=== PATIENT | female | born 1955 | race Caucasian/White ===

== ENCOUNTER 2019-09-25 17:50 | Emergency (ER) | payer BC, SELFPAY ==
[2019-09-25 17:51] VITALS: BP 135/84; PULSE 113; RESP 18; TEMP 37.1; O2SAT 94; BMI 34.7
--- NOTE | 2019-09-25 18:05 | ED.VIS.GEN ---
History of Present Illness Chief Complaint: Abd Pain Informant: Patient, Family Onset: Today Narrative: She presents the emergency department with nausea and vomiting. Patient states that she woke this morning feeling nauseated. She has had too much to eat but a few crackers and sips. She states that her stomach feels like it is acidic. She reports vomiting in triage. She had a large loose bowel movement this morning but did not classify it as diarrhea. No fevers. No rashes. No trips or recent antibiotics. Patient states that last night she had prime rib mashed potatoes and carrots. Her significant other had the same and is not feeling ill. She denies any prior abdominal surgeries. Past Medical History - Allergies and Home Meds Allergies/Adverse Reactions: Allergies ciprofloxacin [From Cipro] Allergy (Verified 12/28/13 11:51) Other ciprofloxacin HCl [From Cipro] Allergy (Verified 12/28/13 11:51) Other metronidazole Allergy (Verified 12/28/13 11:51) Other Penicillins [PCN] Allergy (Verified 12/28/13 11:51) Other Sulfa (Sulfonamide Antibiotics) Allergy (Verified 09/25/19 17:53) Rash Primary Care Physician: Rian Julian MD [Primary Care Provider] - Smoking Status: Never smoker Review of Systems General: Denies: Chills, Fever, Sweats Eyes: Denies: Visual changes - bilaterally, Diplopia ENT: Denies: Rhinorrhea, Sore throat Cardiovascular: Denies: Chest pain, Palpitations Respiratory: Denies: Dyspnea, Cough, Dyspnea on exertion Gastrointestinal: Reports: Abdominal pain, Nausea, Vomiting. Denies: Diarrhea, Melena, Hematochezia Genitourinary: Denies: Dysuria, Hematuria, Frequency Musculoskeletal: Denies: Back pain, Extremity Pain Skin: Denies: Rash, Wounds Neurological: Denies: Headache, Weakness, Numbness Physical Exam Vital Signs/Narrative: Vital Signs Temp Pulse Resp BP Pulse Ox 09/25/19 17:51 98.8 F 113 H 18 135/84 H 94 General: Well nourished, Well developed, No Acute Distress Head: Normocephalic, Atraumatic Eyes: Perrl, EOMI ENT: Moist mucous membranes, No rhinorrhea Neck: Supple, Nontender Cardiovascular: Regular rate, Regular rhythm, No murmurs Respiratory: No distress, CTA bilaterally, Chest nontender Abdomen: Soft, Nondistended, Normal bowel sounds, Tender - Diffusely mildly tender to palpation. Negative for: Guarding, Rebound tenderness Back: Nontender, Normal Inspection Extremities: Nontender, No edema Skin: Normal color, No rash Neurological: Alert, Oriented x3, Cranial nerves II-XII grossly intact, Normal Strength, Normal Sensation Psychological: Normal affect, Normal Mood Diagnostic/Tx/Re-eval - Medical Decision Making Basic labs were obtained and the patient received IV fluids and Zofran. No further vomiting. Patient received a GI cocktail. The labs showed a slight elevation in her transaminases and alk phos. She tells me that she has a history of this and her doctor keeps an eye on it. CT the abdomen pelvis was obtained please see the radiologist read for finite details. These results were conveyed to the patient I recommend that her doctor evaluate them with her and possibly refer to hepatology. Tonight I will write for Zofran and would encourage her to hydrate. Should she develop I would recommend Imodium. Return if worsening or concerns ED Disposition - Plan for ED Patient: Disposition: Home or Assisted Living Instructions: GASTROENTERITIS, Viral (6y-Adult) Prescriptions: Ondansetron [Zofran Odt] 4 mg PO Q6H PRN PRN #20 tab PRN Reason: Nausea Prescription Printed Referrals: Rian Julian MD [Primary Care Provider] - 3-5 Days if not improving
[2019-09-25] MEDS: 0.9% Normal Saline 1,000 ML 1000 ML IV (18:21)
[2019-09-25] MEDS: Ondansetron 4 MG/2 ML Vial IV (18:22)
[2019-09-25 18:37] LABS: Absolute Lymphocyte Count 0.54 X10^3/uL (0.83-4.51); Basophil# 0.01 X10^3/uL; Basophil% 0.1 % (0-1); Eosinophil# 0.01 X10^3/uL; Eosinophils% 0.1 % (0-5); Hematocrit 45.7 % (37-47); Hemoglobin 15.2 g/dL (12.0-15.0); Lymphocyte # 0.54 X10^3/ul (4.0); Lymphocyte % 6.2 % (19-41); Mean Corp Hgb Conc 33.3 g/dL (32-36); Mean Corpuscular Hgb 30.6 pg (27.0-32.0); Mean Platelet Vol. 10.6 fl (6.2-12.0); Monocyte# 0.16 X10^3/uL; Monocyte% 1.8 % (0-10); NRBC Flagged by Analyzer 0 % (0-5); Neutrophil # 8.01 X10^3/uL (2.7-7.7); Neutrophil % 91.2 % (47-70); POSITIVE COUNT YES; POSITIVE DIFFERENTIAL YES; Platelet Count 95 K/mm3 (150-450); RBC Distribution Width CV 13.4 % (11.6-14.6); RBC Distribution Width SD 45.6 fl (35.1-43.9); Red Blood Count 4.97 M/mm3 (4.2-5.4); White Blood Count 8.8 K/mm3 (4.4-11.0)
[2019-09-25 18:44] LABS: Differential Indicated SCAN CRITERIA MET
[2019-09-25 18:46] LABS: AST(SGOT) 122 U/L (15-37); Alanine Aminotransfer ALT/SGPT 98 U/L (13-56); Alkaline Phosphatase 120 U/L (45-117); Anion Gap 9 (5-15); BUN 17 mg/dL (7-18); BUN/Creat Ratio 19.2 RATIO (10-20); Calcium,Total 8.5 mg/dL (8.5-10.1); Chloride 104 mmol/L (98-107); Creatinine, Serum 0.88 mg/dL (0.55-1.02); EST Glomerular Filtration Rate 68 mL/min (>60); Est Glom Filt Rate - Afr Amer 83 mL/min (>60); Estimated Creatinine Clearance 46.39 ml/min; Glucose 204 mg/dL (74-106); Lipase 243 U/L (73-393); Potassium 3.7 mmol/L (3.5-5.1); Sodium Level 138 mmol/L (136-145)
[2019-09-25 19:01] LABS: Anisocytosis RARE; Platelet Estimate MOD DEC (ADEQ); Red Cell Morphology N CHROM NORMAL (NORM C&C)
--- NOTE | 2019-09-25 19:01 | CT_ITS ---
STUDY: CT ABDOMEN AND PELVIS WITH CONTRAST REASON FOR EXAM: Female, 64 years old. Burning and nausea RADIATION DOSAGE (If Supplied By Facility): CTDIvol = ( 15.00 ) mGy, DLP = ( 1098.34 ) mGycm TECHNIQUE: CT images were obtained from the dome of the diaphragm to the symphysis pubis without oral contrast. IV 100mL Isovue-370 was administered. Sagittal and coronal images were reconstructed. Individualized dose optimization techniques were used for this CT. COMPARISON: None. FINDINGS: The visualized lung bases are unremarkable. The visualized portions of the heart are within normal limits. The liver is severely fatty infiltrated, severely enlarged and mildly coarsened in texture without focal lesions. Portal and hepatic veins are patent. Spleen is mildly enlarged. Pancreas is normal. Normal bilateral adrenal glands. Normal right kidney. Normal left kidney. Normal visualized stomach. Normal small intestine. Normal colon. The appendix is visualized and appears normal. Normal abdominal aorta. Normal inferior vena cava. Normal retroperitoneum. Normal urinary bladder. Normal abdominal wall. Normal osseous structures. There is degenerative anterolisthesis of L5 on S1 without lysis. BMI is significantly elevated. CT/Abdomen/Pelvis W IV Cont ONLY IMPRESSION: 1. No acute abdominal findings. 2. Hepatic steatosis, hepatomegaly, possibly impending cirrhosis. Hepatology referral is advised. Electronically Signed: Yessica Mccormick, at 19:42 EST Tel , Service support ,
[2019-09-25] MEDS: Mag Hydrox/Al Hydrox/Simeth 30 ML UDC PO (20:11)
[2019-09-25 20:15] VITALS: BP 128/66; PULSE 83; RESP 16; O2SAT 95
[2019-09-25 20:28] VITALS: BP 128/66; PULSE 90; RESP 18; O2SAT 95
== END 2019-09-25 20:28 | disposition home or self-care (01) ==
PROVIDERS: Emergency Provider Emergency Medicine; Family Provider Family Medicine; PCP Family Medicine
DX: A08.4 Viral intestinal infection, unspecified (principal); K76.0 Fatty (change of) liver, not elsewhere classified; R16.0 Hepatomegaly, not elsewhere classified
CPT/HCPCS: 74177; 80053; 83690; 85025; 96361; 96374; 99284; J7030; Q9967; J2405

== ENCOUNTER → 2020-04-19 07:18 | Outpatient (CLI) | payer BC, SELFPAY ==
[2020-04-19 09:16] LABS: ALB/GLOB Ratio 0.9 RATIO (0.9-2.4); AST(SGOT) 87 U/L (15-37); Alanine Aminotransfer ALT/SGPT 78 U/L (13-56); Albumin, Serum 3.8 g/dL (3.2-5.0); Alkaline Phosphatase 121 U/L (45-117); Anion Gap 10 (5-15); BUN 18 mg/dL (7-18); BUN/Creat Ratio 24.7 RATIO (10-20); Calcium,Total 8.8 mg/dL (8.5-10.1); Chloride 102 mmol/L (98-107); Cholesterol 211 mg/dL (200); Creatinine, Serum 0.73 mg/dL (0.55-1.02); EST Glomerular Filtration Rate 85 mL/min (>60); Est Glom Filt Rate - Afr Amer 103 mL/min (>60); Globulin 4.3 g/dL (2.2-4.2); Glucose 236 mg/dL (74-106); High Density Lipoprotein 40 mg/dL; Protein, Total 8.1 g/dL (6.4-8.2); Sodium Level 138 mmol/L (136-145); Thyroid Stim Hormone (TSH) 2.39 uIU/mL (0.358-3.74); Triglycerides 191 mg/dL; Uric Acid 3.3 mg/dL (2.6-6.0); Very Low Density Lipoprotein 38 mg/dL (5-40)
[2020-04-19 11:14] LABS: Hemoglobin A1c 8.9 % (3.8-5.6)
== END ==
PROVIDERS: PCP Family Medicine; Referring Provider Family Medicine; Visit Provider Family Medicine
DX: E03.9 Hypothyroidism, unspecified (principal); E11.9 Type 2 diabetes mellitus without complications; M10.9 Gout, unspecified
CPT/HCPCS: 36415; 80053; 80061; 83036; 84443; 84550

== ENCOUNTER 2021-11-20 07:57 | Outpatient (CLI) | payer MEDICARE, BC, SELFPAY ==
--- NOTE | 2021-11-20 08:05 | MRI_ITS ---
STUDY: MRI BRAIN WITH AND WITHOUT CONTRAST (ATTENTION INTERNAL AUDITORY CANALS - I.A.C.''s) REASON FOR EXAM: Female, 66 years old. TINNITUS RT EAR, HEARING LOSS TECHNIQUE: Standardized multiplanar fat and water weighted pulse sequences were obtained. IV 16ml Dotarem was administered for the contrast portion of the examination. COMPARISON: MR May 20 2006 FINDINGS: Normal bilateral temporal bones. Normal bilateral internal auditory canals. There is no demonstrated intracanalicular or cisternal vestibular schwannoma (acoustic neuroma). There is no enhancement of the bilateral VIIth or VIIIth cranial nerves. Normal bilateral cochlea, vestibules and semicircular canals. Normal size of the ventricles and extra-axial spaces for the patient''s age. Normal white matter tracts of the supratentorial brain. Normal bilateral basal ganglia. Normal thalami. Normal flow voids within the major intracranial circulation suggesting patency by spin echo criteria. Normal venous enhancement. There is no enhancing intra-axial or extra-axial abnormality. There is no extra-axial fluid accumulation. Normal sella turcica, pituitary gland, infundibular stalk, optic chiasm and hypothalamus. Normal tectal plate and pineal gland. Normal midbrain, ariel and medulla. Normal cerebellum. Normal basal cisterns. MRI/Brain W/WO Contrast IMPRESSION: Unremarkable unenhanced and enhanced MRI of the bilateral internal auditory canals (I.A.C''s). Electronically Signed: Jessica Chatman MD at 15:08 EST ,
[2021-11-20 08:36] LABS: CREATININE FINGERSTICK < 0.6 mg/dL (0.55-1.02); EGFR FINGERSTICK > 60.0000 mL/min (>60)
== END 2021-11-20 23:59 | disposition short-term general hospital (02) ==
PROVIDERS: PCP Family Medicine; Referring Provider Otolaryngology; Visit Provider Otolaryngology
DX: H93.11 Tinnitus, right ear (principal); H90.3 Sensorineural hearing loss, bilateral
CPT/HCPCS: 70553; A9575

== ENCOUNTER 2023-01-18 10:35 | Inpatient (IN) | payer MEDICARE, BC, SELFPAY ==
[2023-01-18 10:36] VITALS: BP 116/68; PULSE 128; RESP 20; TEMP 36.1; O2SAT 98
--- NOTE | 2023-01-18 10:57 | EX.ED.DYSGE1 ---
HPI <DARLENE Friedman - Last Filed: 01/18/23 16:53> History of Present Illness Chief Complaint: Nausea/Vomiting Narrative Narrative: Patient presenting today after an episode of hematemesis that occurred this morning. She states that on Thursday she began to feel nauseous, weak, and shaky. She has felt that way since and today she attempted to walk to the bathroom and fell 3 times trying to get there because she felt so weak. When she got to the bathroom, she felt very nauseous and that is when she threw up a large amount of blood with clots. She has a history of gastric reflux and takes pantoprazole daily. She has not had an endoscopy in almost 20 years. She does not have a GI doctor. She states that in June she had a hemoglobin of 8.2 so her PCP placed her on iron supplementation and in November repeat hemoglobin was normal so she stopped her iron. She denies any melena, hematochezia, abdominal pain, fevers, chills, alcohol use, frequent NSAID use, tobacco use. [facility] <DARLENE Friedman - Last Filed: 01/18/23 16:53> [facility] Medical History (Updated 01/18/23 @ 17:23 by Aisha Butler) Diabetes Migraines Home Medications diclofenac potassium 50 mg tablet (Cataflam) 50 mg PO PRN PRN Migraine Symptoms 12/28/13 [History Last Taken Unknown] levothyroxine 50 mcg tablet 50 mcg PO DAILY 12/28/13 [History Last Taken Unknown] nadolol 40 mg tablet 40 mg PO DAILY 12/28/13 [History Last Taken Unknown] omeprazole 20 mg capsule,delayed release 20 mg PO DAILY 12/28/13 [History Last Taken Unknown] rizatriptan 10 mg tablet 10 mg PO DAILY 12/28/13 [History Last Taken Unknown] topiramate 100 mg tablet 100 mg PO DAILY 12/28/13 [History Last Taken Unknown] topiramate 50 mg tablet 50 mg PO DAILY 12/28/13 [History Last Taken Unknown] trazodone 50 mg tablet 50 mg PO QHS 12/28/13 [History Last Taken Unknown] ondansetron 4 mg disintegrating tablet 4 mg PO Q6H PRN PRN Nausea #20 tabs 09/25/19 [Rx Last Taken Unknown] Allergy/AdvReac Type Severity Reaction Status Date / Time ciprofloxacin [From Cipro] Allergy Other Verified 01/18/23 10:39 ciprofloxacin HCl Allergy Other Verified 01/18/23 10:39 [From Cipro] metronidazole Allergy Other Verified 01/18/23 10:39 Penicillins [PCN] Allergy Other Verified 01/18/23 10:39 Sulfa (Sulfonamide Allergy Rash Verified 01/18/23 10:39 Antibiotics) [id number] Reductase AdvReac Other Verified 01/18/23 10:39 Inhibitor Family History (Updated 01/18/23 @ 17:23 by Aisha Butler) Grandfather Diabetes Grandmother Diabetes Father Heart problem Mother CVA (cerebral vascular accident) Surgical History (Updated 01/18/23 @ 17:23 by Aisha Butler) History of Hx of tonsillectomy Status post left foot surgery Social History Smoking Status: Former smoker ROS <DARLENE Friedman - Last Filed: 01/18/23 16:53> ROS ED Constitutional Constitutional ED: Denies chills, fever(s) or sweats Eyes Eyes: Denies blurry vision or diplopia Cardiovascular Cardiovascular: Denies chest pain or palpitations Respiratory/Chest Respiratory/Chest: Denies cough or dyspnea Gastrointestinal Gastrointestinal: Reports hematemesis, nausea and vomiting; Denies abdominal pain, constipation or diarrhea Genitourinary Genitourinary ED: Denies dysuria, hematuria or urinary urgency Musculoskeletal Musculoskeletal: Denies arthralgias, back pain or myalgias Integumentary Denies abscess, Abrasions or rash Neurologic Neurologic: Reports weakness; Denies dizziness Psychiatric Psychiatric: Denies anxiety, depression, suicidal ideation or suicidal thoughts EXAM <DARLENE Friedman - Last Filed: 01/18/23 16:53> Physical Exam Const Vital Signs: 01/18/23 10:36 01/18/23 11:55 01/18/23 13:26 Temperature 97 F L Temperature Source Temporal Pulse Rate 128 H 106 H Pulse Rate [Lying] 102 H Pulse Rate [Sitting (for 1 minute prior to obtaining)] 113 H Pulse Rate [Standing (for 1 minute prior to obtaining)] 131 H Respiratory Rate 20 H 18 Blood Pressure 116/68 137/70 H Blood Pressure [Lying] 115/72 Blood Pressure [Sitting (for 1 minute prior to obtaining)] 117/74 Blood Pressure [Standing (for 1 minute prior to obtaining)] 111/67 Blood Pressure Mean 84 92 Blood Pressure Mean [Lying] 86 Blood Pressure Mean [Sitting (for 1 minute prior to obtaining)] 88 Blood Pressure Mean [Standing (for 1 minute prior to obtaining)] 81 Pulse Ox 98 99 Oxygen Delivery Method Room Air Room Air Positive well nourished, well developed and no apparent distress General Appearance ED: well developed HEENT Reports normocephalic and head/scalp atraumatic Mouth ED: Yes moist mucous membranes normal Eyes PERRL and EOMs intact bilaterally Neck full ROM and supple Chest Wall inspection of chest normal Resp normal respiratory effort and clear to auscultation bilaterally Cardio regular rate and regular rhythm GI soft to palpation, non-tender, non-distended and no masses Back/Spine normal ROM and normal to inspection Extremity normal to inspection and full ROM Neuro oriented x3, CN's II-XII intact bilaterally, moves all extremities, no focal motor deficits and no sensory deficits noted Sensorium / Orientation: awake and alert Psych mental status grossly normal and thought process normal Skin no rashes or lesions noted and no wounds <Dr. Asad Macario DO - Last Filed: 01/18/23 18:22> Physical Exam Const Vital Signs: 01/18/23 10:36 01/18/23 11:55 01/18/23 13:26 Temperature 97 F L Temperature Source Temporal Pulse Rate 128 H 106 H Pulse Rate [Lying] 102 H Pulse Rate [Sitting (for 1 minute prior to obtaining)] 113 H Pulse Rate [Standing (for 1 minute prior to obtaining)] 131 H Respiratory Rate 20 H 18 Blood Pressure 116/68 137/70 H Blood Pressure [Lying] 115/72 Blood Pressure [Sitting (for 1 minute prior to obtaining)] 117/74 Blood Pressure [Standing (for 1 minute prior to obtaining)] 111/67 Blood Pressure Mean 84 92 Blood Pressure Mean [Lying] 86 Blood Pressure Mean [Sitting (for 1 minute prior to obtaining)] 88 Blood Pressure Mean [Standing (for 1 minute prior to obtaining)] 81 Pulse Ox 98 99 Oxygen Delivery Method Room Air Room Air MDM <DARLENE Friedman - Last Filed: 01/18/23 16:53> [facility] MDM Narrative Medical decision making narrative: Patient presenting with weakness and an episode of emesis that occurred this morning. She denies any blood in her stool. This has never happened before. She has a history of GERD and takes pantoprazole daily. No alcohol, tobacco, or frequent NSAID use. She does not have a GI doctor. She did show me a picture of her vomit and it is consistent with coffee-ground emesis. she has been given protonix, IV fluids, Zofran. Obtain a leukocytosis, anemia, assess kidney function, rule out elevated liver enzymes, and to check a lipase to rule out pancreatitis. Patient does have leukocytosis, BUN 38, lipase WNL, H&H 9.[address] scan of the abdomen and pelvis obtained and shows enhancing nodule in the proximal duodenum. Dr. Curtis has been spoken to and he states he will see the patient tomorrow as she will need an endoscopy. Hospitalist has been paged and patient will be admitted to the hospital in stable condition. She is comfortable with plan. Lab Data Attestation: I reviewed the patient's lab results. Lab results narrative: WBC 8-2, hemoglobin 9.9, hematocrit 30.6, platelet count 141, lipase WNL Labs: Laboratory Results - last 24 hr 01/18/23 01/18/23 01/18/23 11:15 11:15 11:15 WBC 18.2 H RBC 3.32 L Hgb 9.9 L Hct 30.6 L MCV 92.2 MCH 29.8 MCHC 32.4 RDW Std Deviation 49.5 H RDW Coeff of Pete 15.0 H Plt Count 141 L MPV 10.1 Immature Gran % (Auto) 1.200 H Neut % (Auto) 73.9 H Lymph % (Auto) 17.5 L Sac % (Auto) 6.0 Eos % (Auto) 1.0 Baso % (Auto) 0.4 Absolute Neuts (auto) 13.4 H Absolute Lymphs (auto) 3.18 Nucleated RBC % 0.3 Sodium 138 Potassium 4.7 Chloride 107 Carbon Dioxide 20.0 L Anion Gap 11 BUN 38 H Creatinine 0.86 Est GFR (MDRD) Af Amer 85 Est GFR (MDRD) Non-Af 70 BUN/Creatinine Ratio 44.2 H Glucose 255 H Calcium 9.3 Total Bilirubin 0.50 AST 28 ALT 31 Alkaline Phosphatase 83 Total Protein 7.4 Albumin 3.8 Globulin 3.6 Albumin/Globulin Ratio 1.1 Lipase Blood Type O POSITIVE Antibody Screen NEGATIVE 01/18/23 11:15 WBC RBC Hgb Hct MCV MCH MCHC RDW Std Deviation RDW Coeff of Pete Plt Count MPV Immature Gran % (Auto) Neut % (Auto) Lymph % (Auto) Sac % (Auto) Eos % (Auto) Baso % (Auto) Absolute Neuts (auto) Absolute Lymphs (auto) Nucleated RBC % Sodium Potassium Chloride Carbon Dioxide Anion Gap BUN Creatinine Est GFR (MDRD) Af Amer Est GFR (MDRD) Non-Af BUN/Creatinine Ratio Glucose Calcium Total Bilirubin AST ALT Alkaline Phosphatase Total Protein Albumin Globulin Albumin/Globulin Ratio Lipase 211 Blood Type Antibody Screen Radiography Diagnostic Testing: Clinical Impression(s) from Imaging Studies Abdomen/Pelvis CT 01/18/23 11:32 IMPRESSION: (NOT LISTED IN ORDER OF SIGNIFICANCE) In the wall of the proximal duodenum, there is an enhancing nodule. This is 12 x 14mm. It is on the lateral wall. Se 2 IM: 40. Se601 IM: 46. This can be a mass or artifact from peristaltic contractions. However, given the patients history, recommend direct visualization with upper endoscopy. This area was underdistended on the prior study so a direct comparison cannot be obtained. There is hepatomegaly with diffuse hepatic enlargement. There is a diffuse contour abnormality of the liver consistent with cirrhotic changes. Other findings as above. Electronically Signed: Nando Núñez MD at 14:38 EDT Reading Location ID and State: [facility] / [place] , Service support , CT also reviewed and interpreted by attending ED physician. <Dr. Asad Macario, DO - Last Filed: 01/18/23 18:22> [facility] Narrative Medical decision making narrative: Patient presenting with weakness and an episode of emesis that occurred this morning. She denies any blood in her stool. This has never happened before. She has a history of GERD and takes pantoprazole daily. No alcohol, tobacco, or frequent NSAID use. She does not have a GI doctor. She did show me a picture of her vomit and it is consistent with coffee-ground emesis. she has been given protonix, IV fluids, Zofran. Obtain a leukocytosis, anemia, assess kidney function, rule out elevated liver enzymes, and to check a lipase to rule out pancreatitis. Patient does have leukocytosis, BUN 38, lipase WNL, H&H 9.[address] scan of the abdomen and pelvis obtained and shows enhancing nodule in the proximal duodenum. Dr. Curtis has been spoken to and he states he will see the patient tomorrow as she will need an endoscopy. Hospitalist has been paged and patient will be admitted to the hospital in stable condition. She is comfortable with plan. This patient was seen with a PA/COMMERCIAL DECORATOR Individually assessed they patient including history and physical. I have reviewed everything on the chart that is available and agree with the documentation provided by the PA/COMMERCIAL DECORATOR including discussion about the assessment, treatment plan, discussion, and return precautions. Patient presenting with hematemesis. She has a history of GERD and does not believe she has history of ulcers. Been sick since Thursday after eating some spaghetti with red sauce. She had 1 episode of hematemesis today. Patient is able to pride pictures. Blood work shows a leukocytosis of 18,000. Hemoglobin is 9.9 with a previous hemoglobin of greater than 15. She does have low platelets at 141. Renal function and electrolytes within normal limits. BUN is elevated with normal renal function suggesting GI bleed. Liver function and lipase are normal. She was typed and screened. Started on Protonix drip. Discussed with Dr. Curtis who is amenable to seeing her in the hospital. CT of the abdomen pelvis was obtained and shows an enhancing nodule in the wall of the proximal duodenum 12 x 14mm. Patient admitted in stable condition. Impression: 1. acute blood loss anemia 2. Leukocytosis 3. Upper GI bleed 4. Thrombocytopenia Lab Data Labs: Laboratory Results - last 24 hr 01/18/23 01/18/23 01/18/23 11:15 11:15 11:15 WBC 18.2 H RBC 3.32 L Hgb 9.9 L Hct 30.6 L MCV 92.2 MCH 29.8 MCHC 32.4 RDW Std Deviation 49.5 H RDW Coeff of Pete 15.0 H Plt Count 141 L MPV 10.1 Immature Gran % (Auto) 1.200 H Neut % (Auto) 73.9 H Lymph % (Auto) 17.5 L Sac % (Auto) 6.0 Eos % (Auto) 1.0 Baso % (Auto) 0.4 Absolute Neuts (auto) 13.4 H Absolute Lymphs (auto) 3.18 Nucleated RBC % 0.3 Sodium 138 Potassium 4.7 Chloride 107 Carbon Dioxide 20.0 L Anion Gap 11 BUN 38 H Creatinine 0.86 Est GFR (MDRD) Af Amer 85 Est GFR (MDRD) Non-Af 70 BUN/Creatinine Ratio 44.2 H Glucose 255 H Calcium 9.3 Total Bilirubin 0.50 AST 28 ALT 31 Alkaline Phosphatase 83 Total Protein 7.4 Albumin 3.8 Globulin 3.6 Albumin/Globulin Ratio 1.1 Lipase Blood Type O POSITIVE Antibody Screen NEGATIVE 01/18/23 11:15 WBC RBC Hgb Hct MCV MCH MCHC RDW Std Deviation RDW Coeff of Pete Plt Count MPV Immature Gran % (Auto) Neut % (Auto) Lymph % (Auto) Sac % (Auto) Eos % (Auto) Baso % (Auto) Absolute Neuts (auto) Absolute Lymphs (auto) Nucleated RBC % Sodium Potassium Chloride Carbon Dioxide Anion Gap BUN Creatinine Est GFR (MDRD) Af Amer Est GFR (MDRD) Non-Af BUN/Creatinine Ratio Glucose Calcium Total Bilirubin AST ALT Alkaline Phosphatase Total Protein Albumin Globulin Albumin/Globulin Ratio Lipase 211 Blood Type Antibody Screen Radiography Diagnostic Testing: Clinical Impression(s) from Imaging Studies Abdomen/Pelvis CT 01/18/23 11:32 IMPRESSION: (NOT LISTED IN ORDER OF SIGNIFICANCE) In the wall of the proximal duodenum, there is an enhancing nodule. This is 12 x 14mm. It is on the lateral wall. Se 2 IM: 40. Se601 IM: 46. This can be a mass or artifact from peristaltic contractions. However, given the patients history, recommend direct visualization with upper endoscopy. This area was underdistended on the prior study so a direct comparison cannot be obtained. There is hepatomegaly with diffuse hepatic enlargement. There is a diffuse contour abnormality of the liver consistent with cirrhotic changes. Other findings as above. Electronically Signed: Nando Núñez MD at 14:38 EDT , Discharge Plan Dx/Rx/DC Orders Clinical Impression: GI (gastrointestinal bleed) Disposition Disposition: Acute Care Hospital [facility] Discharge Date/Time: 01/18/23 16:43
[2023-01-18 11:25] LABS: Absolute Lymphocyte Count 3.18 X10^3/uL (0.83-4.51); Absolute Neutrophil Count 13.4 X10^3/uL (2.0-7.7); Basophil# 0.08 X10^3/uL; Basophil% 0.4 % (0-1); Eosinophil# 0.18 X10^3/uL; Hematocrit 30.6 % (37-47); Hemoglobin 9.9 g/dL (12.0-15.0); Lymphocyte # 3.18 X10^3/ul (0.83-4.51); Lymphocyte % 17.5 % (19-41); Mean Corp Hgb Conc 32.4 g/dL (32-36); Mean Corpuscular Hgb 29.8 pg (27.0-32.0); Mean Corpuscular Volume 92.2 fL (81-99); Mean Platelet Vol. 10.1 fl (6.2-12.0); Monocyte# 1.09 X10^3/uL; NRBC Flagged by Analyzer 0.3 % (0-5); Neutrophil % 73.9 % (47-70); Platelet Count 141 K/mm3 (150-450); RBC Distribution Width SD 49.5 fl (35.1-43.9); Red Blood Count 3.32 M/mm3 (4.2-5.4); White Blood Count 18.2 K/mm3 (4.4-11.0)
[2023-01-18] MEDS: 0.9% Normal Saline 1,000 ML 999 ML IV (11:25)
[2023-01-18] MEDS: Ondansetron 4 MG/2 ML Vial IV (11:25)
--- NOTE | 2023-01-18 11:32 | CT_ITS ---
STUDY: CT Abdomen And Pelvis W/ Contrast Injection 01/18/2023 2:31 PM REASON FOR EXAM: Female, 67 years old. vomiting. pt states it was black and had blood. abdominal pain Individualized dose optimization techniques were used for this CT. COMPARISON: 09.25.19. TECHNIQUE: CT Abdomen And Pelvis W/ Contrast Injection IV 100mL Isovue-370 FINDINGS: There are atherosclerotic calcifications of visualized coronary arteries. The visualized portions of the heart are within normal limits. There is hepatomegaly with diffuse hepatic enlargement. There is a diffuse contour abnormality of the liver consistent with cirrhotic changes. Normal gallbladder and extrahepatic biliary system. Normal spleen. Normal pancreas. Normal bilateral adrenal glands. There are hypodensities in the right kidney. These are consistent for cysts. No follow up required. No acute findings of the left kidney. Normal visualized stomach. Normal small intestine. Stool throughout the colon. The appendix is visualized and appears normal. In the wall of the proximal duodenum, there is an enhancing nodule. This is 12 x 14mm. It is on the lateral wall. Se 2 IM: 40. Se601 IM: 46. This can be a mass or artifact from peristaltic contractions. However, given the patients history, recommend direct visualization with upper endoscopy. There are calcifications of the abdominal aorta. This is consistent for atherosclerotic disease. There is NO abdominal aortic aneurysm. Vascular workup can be obtained based on clinical correlation. Normal inferior vena cava. Subcentimeter mesenteric lymph nodes. Normal urinary bladder. There is atrophy of the uterus. There is an umbilical hernia containing fat. There are diffuse degenerative changes of the visualized lumbar spine. There is a Grade 1 anterolisthesis of L5 on S1. There is bilateral neural foraminal stenosis at L4-5 and L5-S1. CT/Abdomen/Pelvis W IV Cont ONLY IMPRESSION: (NOT LISTED IN ORDER OF SIGNIFICANCE) In the wall of the proximal duodenum, there is an enhancing nodule. This is 12 x 14mm. It is on the lateral wall. Se 2 IM: 40. Se601 IM: 46. This can be a mass or artifact from peristaltic contractions. However, given the patients history, recommend direct visualization with upper endoscopy. This area was underdistended on the prior study so a direct comparison cannot be obtained. There is hepatomegaly with diffuse hepatic enlargement. There is a diffuse contour abnormality of the liver consistent with cirrhotic changes. Other findings as above. Electronically Signed: Nando Núñez MD at 14:38 EDT ,
[2023-01-18 11:41] LABS: ALB/GLOB Ratio 1.1 RATIO (0.9-2.4); AST(SGOT) 28 U/L (15-37); Alanine Aminotransfer ALT/SGPT 31 U/L (13-56); Albumin, Serum 3.8 g/dL (3.2-5.0); Alkaline Phosphatase 83 U/L (45-117); Anion Gap 11 (5-15); BUN 38 mg/dL (7-18); BUN/Creat Ratio 44.2 RATIO (10-20); Calcium,Total 9.3 mg/dL (8.5-10.1); Chloride 107 mmol/L (98-107); Creatinine, Serum 0.86 mg/dL (0.55-1.02); EST Glomerular Filtration Rate 70 mL/min (>60); Est Glom Filt Rate - Afr Amer 85 mL/min (>60); Globulin 3.6 g/dL (2.2-4.2); Glucose 255 mg/dL (74-106); Potassium 4.7 mmol/L (3.5-5.1); Protein, Total 7.4 g/dL (6.4-8.2); Sodium Level 138 mmol/L (136-145)
[2023-01-18 11:45] LABS: Lipase 211 U/L (73-393)
[2023-01-18 11:54] VITALS: BMI 33.9
[2023-01-18 11:55] VITALS: BP 111/67; BP 115/72; BP 117/74; PULSE 102; PULSE 113; PULSE 131
[2023-01-18 13:26] VITALS: BP 137/70; PULSE 106; RESP 18; O2SAT 99
[2023-01-18 15:37] VITALS: BP 108/81; PULSE 114; RESP 20; TEMP 36.3; O2SAT 98
[2023-01-18 17:03] VITALS: BMI 33.8
[2023-01-18 17:12] VITALS: BP 105/71; PULSE 109; RESP 16; TEMP 37.3; O2SAT 97
[2023-01-18 17:17] LABS: Hematocrit 26.6 % (37-47); Hemoglobin 8.5 g/dL (12.0-15.0)
--- NOTE | 2023-01-18 18:17 | HP.PCM.HOS_ITS ---
HPI - General General Date of Admission: 01/18/23 Date of Service: 01/18/23 Chief Complaint: Hematemesis HPI Narrative JAVON CAMPBELL, is a 67 F who presents to the emergency room at [facility] [place] after having an episode of hematemesis approximately 930 this morning, patient has had no more episodes today, she does not feel weak or fatigued, patient has never had a history of upper GI bleeds to her knowledge, she was diagnosed with anemia last fall and had a colonoscopy which did not show anything significant according to her, she was placed on iron therapy but taken off this therapy in November 2022, her doctor told her that she did not need the iron anymore that her hemoglobin was normal. We do not have a hemoglobin in this record recently, she is a [facility] patient. Patient states that she feels as if she has acid feeling in her stomach. She does take Protonix 40 mg daily on a continuous basis. She denies any frequent use of any nonsteroidals or aspirin. Labs performed in the emergency room showed the patient's white blood cell count to be elevated 18.2, hemoglobin was 9.9, platelet count was 141,000, patient's chemistry profile was remarkable for glucose of 255. CT of the abdomen and pelvis was remarkable for a 12 x 14 mm enhancing nodule on the wall of the proximal duodenum. Patient was admitted to PCU for upper GI bleed, she was placed on Protonix drip and she will get every 4 hour H&H's drawn, I have elected to keep her on her home medications at this time with the exception of the metformin, I do not think she needs fingerstick blood sugars at this time. I talked briefly with matteo pérezoenterologenriqueta about her care. [facility] Medical History (Updated 01/18/23 @ 17:23 by Aisha Butler) Diabetes Migraines Home Medications diclofenac potassium 50 mg tablet (Cataflam) 50 mg PO PRN PRN Migraine Symptoms 12/28/13 [History Last Taken Unknown] levothyroxine 50 mcg tablet 50 mcg PO DAILY 12/28/13 [History Last Taken Unknown] nadolol 40 mg tablet 40 mg PO DAILY 12/28/13 [History Last Taken Unknown] omeprazole 20 mg capsule,delayed release 20 mg PO DAILY 12/28/13 [History Last Taken Unknown] rizatriptan 10 mg tablet 10 mg PO DAILY 12/28/13 [History Last Taken Unknown] topiramate 100 mg tablet 100 mg PO DAILY 12/28/13 [History Last Taken Unknown] topiramate 50 mg tablet 50 mg PO DAILY 12/28/13 [History Last Taken Unknown] trazodone 50 mg tablet 50 mg PO QHS 12/28/13 [History Last Taken Unknown] ondansetron 4 mg disintegrating tablet 4 mg PO Q6H PRN PRN Nausea #20 tabs 09/25/19 [Rx Last Taken Unknown] Allergy/AdvReac Type Severity Reaction Status Date / Time ciprofloxacin [From Cipro] Allergy Other Verified 01/18/23 10:39 ciprofloxacin HCl Allergy Other Verified 01/18/23 10:39 [From Cipro] metronidazole Allergy Other Verified 01/18/23 10:39 Penicillins [PCN] Allergy Other Verified 01/18/23 10:39 Sulfa (Sulfonamide Allergy Rash Verified 01/18/23 10:39 Antibiotics) Tuqxcyj-TGW-SmI Reductase AdvReac Other Verified 01/18/23 10:39 Inhibitor Family History (Updated 01/18/23 @ 17:23 by Aisha uBtler) Grandfather Diabetes Grandmother Diabetes Father Heart problem Mother CVA (cerebral vascular accident) Surgical History (Updated 01/18/23 @ 17:23 by Aisha Butler) History of Hx of tonsillectomy Status post left foot surgery Social History Smoking Status: Former smoker ROS Constitutional Constitutional: Denies anorexia, change in weight, chills, fatigue, fever(s), malaise, night sweats or weakness Eyes Eyes: Denies blurry vision, change in vision, discharge from eye(s) or eye pain Cardiovascular Cardiovascular: Denies chest pain, claudication, dyspnea on exertion, edema, lightheadedness, orthopnea or palpitations Respiratory/Chest Respiratory/Chest: Denies cough, hemoptysis, shortness of breath at rest or shortness of breath with exertion Gastrointestinal Gastrointestinal: Reports hematemesis, nausea and vomiting; Denies abdominal pain, constipation, diarrhea, hematochezia or melena Genitourinary Genitourinary: Denies dysuria, hematuria, urinary frequency, urinary hesitancy, urinary incontinence or urinary urgency Musculoskeletal Musculoskeletal: Denies back pain, joint pain, joint stiffness, joint swelling, myalgias or neck pain Neurologic Neurologic: Denies abnormal gait, abnormal speech, confusion, disequilibrium, dizziness, focal weakness, headache(s), loss of vision, numbness, other visual disturbances, paresthesias, syncope or tingling Psychiatric Psychiatric: Denies anxiety, cognitive impairment, depression, irritability, mood swings or suicidal ideation Endocrine Endocrinology: Denies change in body appearance, cold intolerance, excessive sweating, heat intolerance, polydipsia or polyuria Hematologic/Lymphatic Hematologic/Lymphatic: Denies none, anemia, easy bleeding, easy bruising or lymphadenopathy Allergic/Immunologic Allergic/Immunologic: Denies rhinitis, urticaria, eczemia or asthma Vital Signs Vital Signs Vital Signs: 01/18/23 10:36 01/18/23 11:55 01/18/23 13:26 Temperature 97 F L Temperature Source Temporal Pulse Rate 128 H 106 H Pulse Rate [Lying] 102 H Pulse Rate [Sitting (for 1 minute prior to obtaining)] 113 H Pulse Rate [Standing (for 1 minute prior to obtaining)] 131 H Respiratory Rate 20 H 18 Blood Pressure 116/68 137/70 H Blood Pressure [Lying] 115/72 Blood Pressure [Sitting (for 1 minute prior to obtaining)] 117/74 Blood Pressure [Standing (for 1 minute prior to obtaining)] 111/67 Blood Pressure Mean 84 92 Blood Pressure Mean [Lying] 86 Blood Pressure Mean [Sitting (for 1 minute prior to obtaining)] 88 Blood Pressure Mean [Standing (for 1 minute prior to obtaining)] 81 Blood Pressure Source Blood Pressure Position Blood Pressure Location Pulse Ox 98 99 Oxygen Delivery Method Room Air Room Air 01/18/23 15:37 01/18/23 15:37 01/18/23 17:12 Temperature 97.4 F L 99.2 F H Temperature Source Temporal Oral Pulse Rate 114 H 114 H 109 H Pulse Rate [Lying] Pulse Rate [Sitting (for 1 minute prior to obtaining)] Pulse Rate [Standing (for 1 minute prior to obtaining)] Respiratory Rate 20 H 20 H 16 Blood Pressure 108/81 H 108/81 H 105/71 Blood Pressure [Lying] Blood Pressure [Sitting (for 1 minute prior to obtaining)] Blood Pressure [Standing (for 1 minute prior to obtaining)] Blood Pressure Mean 90 90 82 Blood Pressure Mean [Lying] Blood Pressure Mean [Sitting (for 1 minute prior to obtaining)] Blood Pressure Mean [Standing (for 1 minute prior to obtaining)] Blood Pressure Source Monitor Blood Pressure Position Semi-Fowlers Blood Pressure Location Left Arm Pulse Ox 98 98 97 Oxygen Delivery Method Room Air Room Air Room Air Weight Weight: 76 kg Body Mass Index (BMI) 33.8 Physical Exam Const alert, oriented x3, no apparent distress and healthy appearing General Appearance: cooperative, well kempt and well developed Orientation / Consciousness: awake, oriented to person, oriented to place and oriented to time HEENT normocephalic, head/scalp atraumatic and moist oral mucous membranes Eyes PERRL, EOMs intact bilaterally and conjunctivae normal Neck supple, no JVD, thyroid normal and no carotid bruits General: trachea midline Resp normal respiratory effort, no retractions, no use of accessory muscles and clear to auscultation bilaterally Auscultation: Negative for rales, rhonchi or wheezes Cardio regular rate, regular rhythm, S1 normal heart sound, S2 normal heart sound, no murmurs, no rub and no gallops GI normal to inspection, nondistended, normoactive bowel sounds, soft to palpation, non-tender and non-distended Extremity no clubbing, cyanosis or edema Skin no rashes or lesions noted General Skin Exam: no breakdown Neuro oriented x3, CN's II-XII intact bilaterally, moves all extremities, no focal motor deficits and no sensory deficits noted Sensorium / Orientation: awake and alert Speech: speech normal Psych affect normal Results Lab / Micro Data Result Diagrams: 01/18/23 17:05 01/18/23 11:15 Labs: Laboratory Results - last 24 hr 01/18/23 11:15: WBC 18.2 H, RBC 3.32 L, Hgb 9.9 L, Hct 30.6 L, MCV 92.2, MCH 29.8, MCHC 32.4, RDW Std Deviation 49.5 H, RDW Coeff of Pete 15.0 H, Plt Count 141 L, MPV 10.1, Immature Gran % (Auto) 1.200 H, Neut % (Auto) 73.9 H, Lymph % (Auto) 17.5 L, Pike % (Auto) 6.0, Eos % (Auto) 1.0, Baso % (Auto) 0.4, Absolute Neuts (auto) 13.4 H, Absolute Lymphs (auto) 3.18, Nucleated RBC % 0.3 01/18/23 11:15: Sodium 138, Potassium 4.7, Chloride 107, Carbon Dioxide 20.0 L, Anion Gap 11, BUN 38 H, Creatinine 0.86, Est GFR (MDRD) Af Amer 85, Est GFR (MDRD) Non-Af 70, BUN/Creatinine Ratio 44.2 H, Glucose 255 H, Calcium 9.3, Total Bilirubin 0.50, AST 28, ALT 31, Alkaline Phosphatase 83, Total Protein 7.4, Albumin 3.8, Globulin 3.6, Albumin/Globulin Ratio 1.1 01/18/23 11:15: Blood Type O POSITIVE, Antibody Screen NEGATIVE 01/18/23 11:15: Lipase 211 01/18/23 17:05: Hgb 8.5 L, Hct 26.6 L Radiology Impression Abdomen/Pelvis CT 01/18/23 11:32 IMPRESSION: (NOT LISTED IN ORDER OF SIGNIFICANCE) In the wall of the proximal duodenum, there is an enhancing nodule. This is 12 x 14mm. It is on the lateral wall. Se 2 IM: 40. Se601 IM: 46. This can be a mass or artifact from peristaltic contractions. However, given the patients history, recommend direct visualization with upper endoscopy. This area was underdistended on the prior study so a direct comparison cannot be obtained. There is hepatomegaly with diffuse hepatic enlargement. There is a diffuse contour abnormality of the liver consistent with cirrhotic changes. Other findings as above. Electronically Signed: Nando Núñez MD at 14:38 EDT Reading Location ID and State: [facility] / [place] , Service support , Assessment & Plan Assessment/Plan (1) GI (gastrointestinal bleed): PLAN: Plan 1. Upper GI bleed-etiology unclear at this point, patient was admitted to PCU, serial H&H's will be drawn, patient will be placed on Protonix drip, she will be seen in consultation by gastroenterology. #2 acute blood loss anemia-secondary to upper GI bleed, H&H's will be monitored, patient does not need a blood transfusion at this time #3 hypothyroidism-patient will remain on Synthroid #4 type 2 diabetes-patient is currently on metformin, I have chosen not to monitor blood sugars at this time, patient will be n.p.o. after midnight Total clinical time spent by myself addressing the patient's medical issues, reviewing all of her data, and collaborating with patient's care team: 55 minutes Charges/Coding Visit Charges Inpatient E&M: 26361 Init Hosp L2
[2023-01-18] MEDS: 0.9% Normal Saline 1,000 ML 100 ML IV (18:44)
[2023-01-18] MEDS: 0.9% Saline Lock 10 ML Syringe IV (18:47)
[2023-01-18 19:11] LABS: International Normalized Ratio 1.2; Prothrombin Time (Protime)PT. 14.5 SECONDS (11.7-14.9)
[2023-01-18 20:52] LABS: Hematocrit 25.4 % (37-47); Hemoglobin 8.2 g/dL (12.0-15.0)
[2023-01-18 21:53] VITALS: BP 134/81; PULSE 96; RESP 18; TEMP 36.1; O2SAT 100
[2023-01-18] MEDS: Erythromycin Base 1 OPTH.TUBE 1 APPLIC OPHTHALMIC (22:03)
[2023-01-18] MEDS: traZODone 50 MG Tablet PO (22:03)
[2023-01-18] MEDS: Gabapentin 800 MG Tablet PO (22:04)
[2023-01-18] MEDS: Glycerin/Hypromellose/PEG400 15 ml Bottle EACH EYE (22:04)
--- NOTE | 2023-01-18 23:00 | CON.PCM.GI_ITS ---
HPI Consult Data Date of Consult: 01/18/23 HPI Narrative Reason for Consultation: GI bleed HPI Narrative: JAVON CAMPBELL, is a 67 F who presents after an episode of hematemesis that occurred this morning.? She states that on Thursday she began to feel nauseous, weak, and shaky.? She has felt that way since and today she attempted to walk to the bathroom and fell 3 times trying to get there because she felt so weak.? When she got to the bathroom, she felt very nauseous and that is when she threw up a large amount of blood with clots.? She has a history of gastric reflux and takes pantoprazole daily. ? She has not had an endoscopy in almost 20 years.? She does not have a GI doctor.? She states that in June she had a hemoglobin of 8.2 so her PCP placed her on iron supplementation and in November repeat hemoglobin was normal so she stopped her iron.? She denies any melena, hematochezia, abdominal pain, fevers, chills, alcohol use, frequent NSAID use, tobacco use. Upon review of her labs I noticed that she was thrombocytopenic. I requested that she had a CT scan abdomen pelvis and it showed a cirrhotic liver with splenomegaly and signs of varices throughout the abdomen. She did not know that she had cirrhosis. She noted she had fatty liver disease. Labs performed in the emergency room showed the patient's white blood cell count to be elevated 18.2, hemoglobin was 9.9, platelet count was 141,000, patient's chemistry profile was remarkable for glucose of 255. CT of the abdomen and pelvis was remarkable for a 12 x 14 mm enhancing nodule on the wall of the proximal duodenum. [facility] Medical History (Updated 01/19/23 @ 16:[address] Lundberg Friend, DO) Diabetes Migraines Home Medications levothyroxine 50 mcg tablet 75 mcg PO DAILY Check with primary doctor 12/28/13 [History Last Taken Unknown] rizatriptan 10 mg tablet 10 mg PO PRN PRN Migraine Headache 12/28/13 [History Last Taken Unknown] topiramate 100 mg tablet 100 mg PO DAILY Check with primary doctor 12/28/13 [History Last Taken Unknown] Lactobacillus acidophilus (Acidophilus capsule) 10 mg PO DAILY Check with primary doctor 01/18/23 [History Last Taken Unknown] allopurinol 100 mg tablet 100 mg PO BID Check with primary doctor 01/18/23 [History Last Taken Unknown] apple cider vinegar 300 mg tablet 300 mg PO DAILY health maintence 01/18/23 [Hi story Last Taken Unknown] coenzyme Q10 200 mg capsule (Co Q-10) 200 mg PO DAILY Check with primary doctor 01/18/23 [History Last Taken Unknown] cranberry 500 mg capsule 500 mg PO BID Check with primary doctor 01/18/23 [History Last Taken Unknown] cyclosporine 0.05 % eye drops in a dropperette (Restasis) 1 drp ophthalmic (eye) BID health maintenance 01/18/23 [History Last Taken Unknown] dulaglutide 3 mg/0.5 mL subcutaneous pen injector (Trulicity) 3 mg subcut QWEEK Check with primary doctor 01/18/23 [History Last Taken Unknown] erythromycin 5 mg/gram (0.5 %) eye ointment 1 applic ophthalmic (eye) Q health maintenance 01/18/23 [History Last Taken Unknown] ezetimibe 10 mg tablet 10 mg PO DAILY Check with primary doctor 01/18/23 [History Last Taken Unknown] fexofenadine 180 mg tablet 180 mg PO DAILY Check with primary doctor 01/18/23 [History Last Taken Unknown] fluorometholone 0.1 % eye drops,suspension 1 drp ophthalmic (eye) BID health maintenance 01/18/23 [History Last Taken Unknown] gabapentin 400 mg tablet 800 mg PO QHS health maintenance 01/18/23 [History Last Taken Unknown] galcanezumab-gnlm 120 mg/mL subcutaneous pen injector (Emgality Pen) 120 mg subcut QMONTH Check with primary doctor 01/18/23 [History Last Taken Unknown] glimepiride 4 mg tablet 4 mg PO DAILY Check with primary doctor 01/18/23 [History Last Taken Unknown] magnesium 200 mg tablet 200 mg PO DAILY Check with primary doctor 01/18/23 [History Last Taken Unknown] metformin 1,000 mg tablet 1,000 mg PO BID diabetic 01/18/23 [History Last Taken Unknown] multivitamin with minerals (Hair,Skin and Nails tablet) 1 tab PO DAILY Check with primary doctor 01/18/23 [History Last Taken Unknown] ccevypvgbvcu-Yh-pdwz-minerals 18 mg-0.4 mg tablet 2 tab PO DAILY health maintenance 01/18/23 [History Last Taken Unknown] pantoprazole 40 mg tablet,delayed release 40 mg PO DAILY health maintenance 01/18/23 [History Last Taken Unknown] vit C 250 mg-vit E 90 mg-zinc 40 mg-copper 1 ao-nbggmq-dcfylk capsule (PreserVision AREDS-2) 2 tab PO BID Check with primary doctor 01/18/23 [History Last Taken Unknown] vitamin C 30 mg-zinc citrate 1.1 mg-elderberry 25 mg chewable tablet (Sambucus Elderberry) 1 tab PO DAILY Check with primary doctor 01/18/23 [History Last Taken Unknown] Allergy/AdvReac Type Severity Reaction Status Date / Time ciprofloxacin [From Cipro] Allergy Other Verified 01/18/23 10:39 ciprofloxacin HCl Allergy Other Verified 01/18/23 10:39 [From Cipro] metronidazole Allergy Other Verified 01/18/23 10:39 Penicillins [PCN] Allergy Other Verified 01/18/23 10:39 Sulfa (Sulfonamide Allergy Rash Verified 01/18/23 10:39 Antibiotics) Ryzgnxb-Upv-Czr Reductase AdvReac Other Verified 01/18/23 10:39 Inhibitor [Idhltfu-GQI-MlJ Reductase Inhibitor] Family History (Updated 01/18/23 @ 17:23 by Aisha Butler) Grandfather Diabetes Grandmother Diabetes Father Heart problem Mother CVA (cerebral vascular accident) Surgical History (Updated 01/18/23 @ 17:23 by Aisha Butler) History of Hx of tonsillectomy Status post left foot surgery Social History Smoking Status: Former smoker ROS Constitutional Constitutional: Denies anorexia, change in weight, chills, fatigue, fever(s), malaise, night sweats or weakness Eyes Eyes: Denies blurry vision, change in vision, discharge from eye(s) or eye pain Cardiovascular Cardiovascular: Denies chest pain, claudication, dyspnea on exertion, edema, lightheadedness, orthopnea or palpitations Respiratory/Chest Respiratory/Chest: Denies cough, hemoptysis, shortness of breath at rest or shortness of breath with exertion Gastrointestinal Gastrointestinal: Reports hematemesis, nausea and vomiting; Denies abdominal lynda n, constipation, diarrhea, hematochezia or melena Genitourinary Genitourinary: Denies dysuria, hematuria, urinary frequency, urinary hesitancy, urinary incontinence or urinary urgency Musculoskeletal Musculoskeletal: Denies back pain, joint pain, joint stiffness, joint swelling, myalgias or neck pain Neurologic Neurologic: Denies abnormal gait, abnormal speech, confusion, disequilibrium, dizziness, focal weakness, headache(s), loss of vision, numbness, other visual disturbances, paresthesias, syncope or tingling Psychiatric Psychiatric: Denies anxiety, cognitive impairment, depression, irritability, mood swings or suicidal ideation Endocrine Endocrinology: Denies change in body appearance, cold intolerance, excessive sweating, heat intolerance, polydipsia or polyuria Hematologic/Lymphatic Hematologic/Lymphatic: Denies none, anemia, easy bleeding, easy bruising or lymphadenopathy Allergic/Immunologic Allergic/Immunologic: Denies rhinitis, urticaria, eczemia or asthma Physical Exam Const alert, oriented x3, no apparent distress and healthy appearing General Appearance: cooperative, well kempt and well developed Orientation / Consciousness: awake, oriented to person, oriented to place and oriented to time HEENT normocephalic, head/scalp atraumatic and moist oral mucous membranes Eyes PERRL, EOMs intact bilaterally and conjunctivae normal Neck supple, no JVD, thyroid normal and no carotid bruits General: trachea midline Resp normal respiratory effort, no retractions, no use of accessory muscles and clear to auscultation bilaterally Auscultation: Negative for rales, rhonchi or wheezes Cardio regular rate, regular rhythm, S1 normal heart sound, S2 normal heart sound, no murmurs, no rub and no gallops GI normal to inspection, nondistended, normoactive bowel sounds, soft to palpation, non-tender and non-distended Extremity no clubbing, cyanosis or edema Skin no rashes or lesions noted General Skin Exam: no breakdown Neuro oriented x3, CN's II-XII intact bilaterally, moves all extremities, no focal motor deficits and no sensory deficits noted Sensorium / Orientation: awake and alert Speech: speech normal Psych affect normal Lab / Micro Data Result Diagrams: 01/19/23 15:37 01/18/23 11:15 Labs: Laboratory Results - last 24 hr 01/18/23 11:15: PT 14.5, INR 1.2 01/18/23 17:05: Hgb 8.5 L, Hct 26.6 L 01/18/23 20:40: Hgb 8.2 L, Hct 25.4 L 01/19/23 05:35: WBC 6.7, RBC 2.38 L, Hgb 7.0 L, Hct 22.2 L, MCV 93.3, MCH 29.4, MCHC 31.5 L, RDW Std Deviation 50.4 H, RDW Coeff of Pete 15.1 H, Plt Count 72 L, MPV 10.3, Immature Gran % (Auto) 0.700, Neut % (Auto) 50.1, Lymph % (Auto) 39.9, Gilchrist % (Auto) 4.3, Eos % (Auto) 4.6, Baso % (Auto) 0.4, Absolute Neuts (auto) 3.3, Absolute Lymphs (auto) 2.66, Nucleated RBC % 0.6, Platelet Estimate MOD DEC, Hypochromasia 2+, Anisocytosis 1+ 01/19/23 05:35: Magnesium 2.0 01/19/23 05:35: PT 14.8, INR 1.2, APTT 28.3 01/19/23 14:10: POC Glucose 113 H 01/19/23 15:37: Hgb 6.9 L, Hct 22.1 L Assessment & Plan Assessment/Plan (1) GI (gastrointestinal bleed): PLAN: She is on a PPI drip. She will need ceftriaxone IV 1 g every 24 hours. We will assess her for the etiology of her upper GI bleed. She will undergo an upper endoscopy. She was explained alternatives, risk, benefits including outstanding bleeding, infection, sepsis, perforation, need for emergent urgent . She have an ASA of 3. 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 At this time she is not showing any other signs of decompensated cirrhosis. She is not having any signs of encephalopathy, ascites, renal failure. At this time she is a child Rosas class a with a meld of 10. Recommend lactulose 20 cc once a day and titrate up to 3 bowel once a day. Also recommend Xifaxan 5 to 50 mg twice a day. 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 (4) Abnormal CT scan: PLAN: There is a lesion seen in the duodenum. We will perform an upper endos copy to see if we can locate what this lesion is and if it is intraluminal or extraluminal Charges/Coding Visit Charges Inpatient E&M: 61299 Init Hosp L3
[2023-01-19] VITALS (14 sets, daily range): BP systolic 100–131; BP diastolic 61–77; PULSE 73–96; RESP 14–18; TEMP 36.3–37.1; O2SAT 92–100
[2023-01-19] MEDS: 0.9% Normal Saline 1,000 ML 100 ML IV ×2 (02:58→11:42)
[2023-01-19] MEDS: Levothyroxine 50 MCG Tablet PO (05:25)
--- NOTE | 2023-01-19 05:55 | EKG12_ITS ---
Test Reason : AM EKG Blood Pressure : / mmHG Vent. Rate : 091 BPM Atrial Rate : 091 BPM P-R Int : 156 ms QRS Dur : 084 ms QT Int : 364 ms P-R-T Axes : 038 -31 024 degrees QTc Int : 447 ms Normal sinus rhythm Left axis deviation Low voltage QRS Cannot rule out Anterior infarct , age undetermined Abnormal ECG No previous ECGs available Confirmed by SAMUEL GOLDMAN, CAMELIA ([id number]), videotape editor DEION LUCIANO ([id number]) on 01/21/2023 10:11:50 AM Referred By: AKUA Confirmed By:PRISCILLA BAKER MD
[2023-01-19 06:23] LABS: International Normalized Ratio 1.2; Prothrombin Time (Protime)PT. 14.8 SECONDS (11.7-14.9)
[2023-01-19 06:24] LABS: Absolute Lymphocyte Count 2.66 X10^3/uL (0.83-4.51); Absolute Neutrophil Count 3.3 X10^3/uL (2.0-7.7); Basophil# 0.03 X10^3/uL; Basophil% 0.4 % (0-1); Eosinophil# 0.31 X10^3/uL; Eosinophils% 4.6 % (0-5); Hematocrit 22.2 % (37-47); Lymphocyte # 2.66 X10^3/ul (0.83-4.51); Lymphocyte % 39.9 % (19-41); Mean Corp Hgb Conc 31.5 g/dL (32-36); Mean Corpuscular Hgb 29.4 pg (27.0-32.0); Mean Corpuscular Volume 93.3 fL (81-99); Mean Platelet Vol. 10.3 fl (6.2-12.0); Monocyte# 0.29 X10^3/uL; Monocyte% 4.3 % (0-10); NRBC Flagged by Analyzer 0.6 % (0-5); Neutrophil # 3.33 X10^3/uL (2.7-7.7); Neutrophil % 50.1 % (47-70); POSITIVE COUNT YES; Partial Thromboplast Time 28.3 Seconds (24.1-36.2); Platelet Count 72 K/mm3 (150-450); RBC Distribution Width CV 15.1 % (11.6-14.6); RBC Distribution Width SD 50.4 fl (35.1-43.9); Red Blood Count 2.38 M/mm3 (4.2-5.4); White Blood Count 6.7 K/mm3 (4.4-11.0)
[2023-01-19 06:34] LABS: Differential Indicated SCAN CRITERIA MET
[2023-01-19] MEDS: 0.9% Saline Lock 10 ML Syringe IV ×2 (06:58→23:01)
[2023-01-19 07:21] LABS: Anisocytosis 1+; Hypochromasia 2+; Platelet Estimate MOD DEC (ADEQ)
[2023-01-19] MEDS: Glycerin/Hypromellose/PEG400 15 ml Bottle EACH EYE (08:53)
[2023-01-19] MEDS: Acetaminophen 325 MG Tablet 650 MG PO (11:41)
--- NOTE | 2023-01-19 12:15 | CASEMGMT ---
DANIELE DUDLEY DC Planning Assessment: Face to Face with patient for initial transition planning/care coordination assessment. DANIELE DUDLEY introduced self and role at [facility], pt voices understanding and is agreeable to participating in assessment. Care providers, pharmacy, and demographics verified. Admitting Dx: LUCIANA Glaser PCP: Eliel Specialists: Tana (neurology), Goldie (airfield services officer) Preferred Pharmacy: [facility] Insurance: [facility] A/B, [place] Prescription Benefit: yes Living Will/HPOA: yes/HPOA spouse Deo LNOK: spouse Deo Living Arrangements: Pt lives with her spouse in a single story home without entrance steps. Pt states she is independent with her ADLs including self care and household tasks. Pt's laundry is in the basement and she does have some difficulty navigating the stairs since breaking her ankle in June 2022. Pt states she can now go down them slowly but has knee pads and often goes up them on her knees or on her bottom. Transportation: pt drives and her spouse is able to assist if needed DME: cane, walker, w/c, rollator, shower chair, grab bars, glucometer and supplies. SNF/HHC: denies any previous providers. Plan: Pt plans to return home at discharge with the support of her spouse. Will continue to monitor and assist with DC needs as identified. Sadaf Joya RN CM
[2023-01-19 14:35] LABS: Bedside Glucose 113 mg/dL (74-106)
[2023-01-19 15:45] LABS: Hematocrit 22.1 % (37-47); Hemoglobin 6.9 g/dL (12.0-15.0)
--- NOTE | 2023-01-19 16:53 | OP.EGD_ITS ---
Patient Name: Krista Lopez Procedure Date: 01/19/2023 4:09 PM Date of : 1955 Age: 67 Procedure: Upper GI endoscopy Indications: Hematemesis, Cirrhosis with suspected esophageal varices Providers: Toño Curtis DO Medicines: Monitored Anesthesia Care Patient Profile: This is a 67 year old female. Refer to note in patient chart for documentation of history and physical. Patient has symptoms. The symptoms first began 01,. Complications: No immediate complications. Procedure: Pre-Anesthesia Assessment: - Prior to the procedure, a History and Physical was performed, and patient medications and allergies were reviewed. The patient is competent. The risks and benefits of the procedure and the sedation options and risks were discussed with the patient. All questions were answered and informed consent was obtained. Patient identification and proposed procedure were verified by the physician. Mental Status Examination: normal. Prophylactic Antibiotics: The patient does not require prophylactic antibiotics. Prior Anticoagulants: The patient has taken no previous anticoagulant or antiplatelet agents. ASA Grade Assessment: II - A patient with mild systemic disease. After reviewing the risks and benefits, the patient was deemed in satisfactory condition to undergo the procedure. The anesthesia plan was to use monitored anesthesia care (MAC). Immediately prior to administration of medications, the patient was re-assessed for adequacy to receive sedatives. The heart rate, respiratory rate, oxygen saturations, blood pressure, adequacy of pulmonary ventilation, and response to care were monitored throughout the procedure. The physical status of the patient was re-assessed after the procedure. After obtaining informed consent, the endoscope was passed under direct vision. Throughout the procedure, the patient's blood pressure, pulse, and oxygen saturations were monitored continuously. The gastroscope was introduced through the mouth, and advanced to the second part of duodenum. The upper GI endoscopy was accomplished without difficulty. The patient tolerated the procedure well. Scope In: 4:22:40 PM Scope Out: 4:38:39 PM Total Procedure Duration Time 0 hours 15 minutes 59 seconds Findings: Five columns of oozing grade III varices were found in the upper third of the esophagus, in the middle third of the esophagus and in the lower third of the esophagus, 23 cm from the incisors. They were 9 mm in largest diameter. Stigmata of recent bleeding were evident and red zack signs were present. Three bands were successfully placed with incomplete eradication of varices. Bleeding had stopped at the end of the procedure. Three 5 mm bleeding angiodysplastic lesions were found in the cardia and in the gastric body. Coagulation for hemostasis using heater probe was successful. One non-bleeding cratered duodenal ulcer with no stigmata of bleeding was found in the duodenal bulb. The lesion was 6 mm in largest dimension. Impression: - Bleeding grade III esophageal varices. Incompletely eradicated. Banded. - Three bleeding angiodysplastic lesions in the stomach. Treated with a heater probe. - One non-bleeding duodenal ulcer with no stigmata of bleeding. - No specimens collected. Recommendation: - [facility]. - Clear liquid diet. - Continue present medications. -Patient has allergies to fluoroquinolones and penicillins. Therefore I will give her vancomycin 1 g every 24 hours, gentamicin 60 mg daily, nystatin 500,000 international units every 6 hours. She will need to take this for 5 days. I will also put on octreotide for 24 hours and she can be switched to Protonix 40 mg IV every 12 hours. Procedure Code(s): --- Professional --- 53425, Esophagogastroduodenoscopy, flexible, transoral; with band ligation of esophageal/gastric varices 90389, 59,51, Esophagogastroduodenoscopy, flexible, transoral; with control of bleeding, any method CPT copyright 2017 [employer]. All rights reserved. The codes documented in this report are preliminary and upon hazmat tanker driver review may be revised to meet current compliance requirements. Toño Curtis DO 01/19/2023 4:53:23 PM This report has been signed electronically. Number of Addenda: 0 Note Initiated On: 01/19/2023 4:09 PM
--- NOTE | 2023-01-19 16:54 | OP.CCLET_ITS ---
01/19/2023 Rian Julian [address] [place] [address] Re : Upper GI endoscopy procedure for Krista Lopez Dear Dr. Julian This procedure was performed on Thursday, January 19, 2023. My impressions and recommendations are as follows: Impressions : - Bleeding grade III esophageal varices. Incompletely eradicated. Banded. - Three bleeding angiodysplastic lesions in the stomach. Treated with a heater probe. - One non-bleeding duodenal ulcer with no stigmata of bleeding. - No specimens collected. Recommendations : - [facility]. - Clear liquid diet. - Continue present medications. -Patient has allergies to fluoroquinolones and penicillins. Therefore I will give her vancomycin 1 g every 24 hours, gentamicin 60 mg daily, nystatin 500,000 international units every 6 hours. She will need to take this for 5 days. I will also put on octreotide for 24 hours and she can be switched to Protonix 40 mg IV every 12 hours. My findings are described in the full procedure note, which is enclosed. If I can be of further assistance, please feel free to contact me at . Sincerely, Toño Curtis, 01/19/2023 4:53:23 PM This report has been signed electronically.
--- NOTE | 2023-01-19 17:02 | PCM.PN.HOSP ---
Reason for Visit Reason for Visit: Diagnoses Thrombocytopenia, unspecified (01/18/23) Unspecified cirrhosis of liver (01/18/23) Gastrointestinal hemorrhage, unspecified (01/18/23) Abnormal findings on diagnostic imaging of other specified body structures (01/18/23) Subjective Subjective Patient was seen and examined today, she underwent an EGD today which showed esophageal varices, these were banded, she also had AVMs of her stomach which were treated with a heater probe. 1 nonbleeding duodenal ulcer was noted. Patient was placed on IV antibiotics and octreotide drip. My repeat H&H on the patient showed hemoglobin of 6.9, I wrote for one unit of packed red blood cells to be transfused. Objective Data Objective Data Vital Signs: Vital Signs Temp Pulse Resp BP Pulse Ox O2 Del Method 97.7 F L 83 16 121/71 H 93 Room Air 01/19/23 16:46 01/19/23 16:55 01/19/23 16:55 01/19/23 16:55 01/19/23 16:55 01/19/23 16:55 Oxygen Delivery Method Room Air Weight: 76 kg Body Mass Index (BMI) 33.8 Intake & Output: Intake and Output for Last 24 Hours 01/17/23 01/18/23 01/19/23 23:59 23:59 23:59 Intake Total 1585 / 1585 2258.32 / 2258.32 Balance 1585 / 1585 2258.32 / 2258.32 Lab / Micro Data Result Diagrams: 01/19/23 15:37 01/18/23 11:15 Labs: Laboratory Results - last 24 hr 01/18/23 11:15: PT 14.5, INR 1.2 01/18/23 17:05: Hgb 8.5 L, Hct 26.6 L 01/18/23 20:40: Hgb 8.2 L, Hct 25.4 L 01/19/23 05:35: WBC 6.7, RBC 2.38 L, Hgb 7.0 L, Hct 22.2 L, MCV 93.3, MCH 29.4, MCHC 31.5 L, RDW Std Deviation 50.4 H, RDW Coeff of Pete 15.1 H, Plt Count 72 L, MPV 10.3, Immature Gran % (Auto) 0.700, Neut % (Auto) 50.1, Lymph % (Auto) 39.9, [place] % (Auto) 4.3, Eos % (Auto) 4.6, Baso % (Auto) 0.4, Absolute Neuts (auto) 3.3, Absolute Lymphs (auto) 2.66, Nucleated RBC % 0.6, Platelet Estimate MOD DEC, Hypochromasia 2+, Anisocytosis 1+ 01/19/23 05:35: Magnesium 2.0 01/19/23 05:35: PT 14.8, INR 1.2, APTT 28.3 01/19/23 14:10: POC Glucose 113 H 01/19/23 15:37: Hgb 6.9 L, Hct 22.1 L Physical Exam Const alert, oriented x3, no apparent distress and healthy appearing General Appearance: cooperative, well kempt and well developed Orientation / Consciousness: awake, oriented to person, oriented to place and oriented to time HEENT normocephalic, head/scalp atraumatic and moist oral mucous membranes Eyes PERRL, EOMs intact bilaterally and conjunctivae normal Neck supple, no JVD, thyroid normal and no carotid bruits General: trachea midline Resp normal respiratory effort, no retractions, no use of accessory muscles and clear to auscultation bilaterally Auscultation: Negative for rales, rhonchi or wheezes Cardio regular rate, regular rhythm, S1 normal heart sound, S2 normal heart sound, no murmurs, no rub and no gallops GI normal to inspection, nondistended, normoactive bowel sounds, soft to palpation, non-tender and non-distended Extremity no clubbing, cyanosis or edema Skin no rashes or lesions noted General Skin Exam: no breakdown Neuro oriented x3, CN's II-XII intact bilaterally, moves all extremities, no focal motor deficits and no sensory deficits noted Sensorium / Orientation: awake and alert Speech: speech normal Psych affect normal Assessment & Plan Assessment/Plan (1) GI (gastrointestinal bleed): PLAN: Plan 1. Upper GI bleed-possibly from esophageal varices versus angiodysplastic lesions/duodenal ulcer-there is no active bleeding seen at the patient's EGD today, patient will be given 1 unit of packed red blood cells due to hemoglobin of 6.9. I talked with GI, they had placed the patient on gentamicin and vancomycin, I believe we can try Rocephin on the patient, she has a penicillin allergy but it is not clear what that allergy is. I have asked nursing to clarify that it is not a severe allergy, in the meantime I have written for Rocephin 1 g daily and I have discontinued her vancomycin and gentamicin. #2 acute blood loss anemia-secondary to upper GI bleed, patient was transfused 1 unit of packed red blood cells #3 hypothyroidism-patient will remain on Synthroid #4 type 2 diabetes-patient is on sliding scale insulin per fingerstick blood sugars at this time and a clear liquid diet #5 chronic migraines-patient was given Fioricet today for headache, I will write for every 6 hours as needed for headache Total clinical time spent by myself addressing the patient's medical issues, reviewing all of her data, and collaborating with patient's care team: 35 minutes Charges/Coding Visit Charges Inpatient E&M: 11821 Subs Hosp L2
[2023-01-19] MEDS: Allopurinol 100 MG Tablet PO (17:49)
[2023-01-19] MEDS: NYSTATIN 500,000 UNIT/5 ML UDC 500000 UNIT PO ×2 (17:50→22:52)
[2023-01-19] MEDS: Ceftriaxone 1 GM/50 ML BAG IV (18:43)
[2023-01-19 19:36] LABS: Bedside Glucose 107 mg/dL (74-106)
[2023-01-19] MEDS: FLUOROMETHOLONE 1 DROP BOTTLE 1 DRP OPHTHALMIC (22:46)
[2023-01-19] MEDS: traZODone 50 MG Tablet PO (22:47)
[2023-01-19] MEDS: Gabapentin 800 MG Tablet PO (22:51)
[2023-01-19 23:35] LABS: Bedside Glucose 134 mg/dL (74-106)
[2023-01-19] MEDS: Erythromycin Base 1 OPTH.TUBE 1 APPLIC OPHTHALMIC (23:56)
[2023-01-20] MEDS: 0.9% Normal Saline 1,000 ML 100 ML IV ×2 (04:47→15:29)
[2023-01-20 04:48] LABS: Absolute Lymphocyte Count 1.59 X10^3/uL (0.83-4.51); Absolute Neutrophil Count 2.3 X10^3/uL (2.0-7.7); Basophil# 0.03 X10^3/uL; Basophil% 0.7 % (0-1); Eosinophil# 0.16 X10^3/uL; Eosinophils% 3.7 % (0-5); Hematocrit 25.3 % (37-47); Hemoglobin 8.1 g/dL (12.0-15.0); Lymphocyte # 1.59 X10^3/ul (0.83-4.51); Lymphocyte % 36.6 % (19-41); Mean Corpuscular Hgb 29.8 pg (27.0-32.0); Monocyte# 0.28 X10^3/uL; Monocyte% 6.4 % (0-10); NRBC Flagged by Analyzer 0.7 % (0-5); Neutrophil # 2.25 X10^3/uL (2.7-7.7); Neutrophil % 51.7 % (47-70); POSITIVE COUNT YES; Platelet Count 60 K/mm3 (150-450); RBC Distribution Width CV 14.8 % (11.6-14.6); RBC Distribution Width SD 48.7 fl (35.1-43.9); Red Blood Count 2.72 M/mm3 (4.2-5.4); White Blood Count 4.4 K/mm3 (4.4-11.0)
[2023-01-20 04:49] VITALS: BP 125/69; PULSE 87; RESP 18; TEMP 36.9; O2SAT 96
[2023-01-20] MEDS: Acetaminophen/Butalbital/Caffe 1 Tablet 2 TABLET PO (05:51)
[2023-01-20] MEDS: Insulin Lispro 100 UNIT/ML INSULN.PEN SC ×3 (06:45→22:42)
[2023-01-20] MEDS: Levothyroxine 50 MCG Tablet PO (06:47)
[2023-01-20 07:11] LABS: Bedside Glucose 182 mg/dL (74-106)
[2023-01-20 08:27] VITALS: BP 114/66; PULSE 75; RESP 14; TEMP 36.7; O2SAT 93
[2023-01-20] MEDS: NYSTATIN 500,000 UNIT/5 ML UDC 500000 UNIT PO ×4 (08:35→22:37)
[2023-01-20] MEDS: Glycerin/Hypromellose/PEG400 15 ml Bottle EACH EYE (08:35)
[2023-01-20] MEDS: Loratadine 10 MG Tablet PO (08:36)
[2023-01-20] MEDS: Allopurinol 100 MG Tablet PO ×2 (08:36→16:36)
[2023-01-20] MEDS: Nadolol 40 MG Tablet PO (08:36)
[2023-01-20] MEDS: Ezetimibe 10 MG Tablet PO (08:36)
[2023-01-20] MEDS: FLUOROMETHOLONE 1 DROP BOTTLE 1 DRP OPHTHALMIC ×2 (08:37→22:37)
[2023-01-20] MEDS: Ceftriaxone 1 GM/50 ML BAG IV (11:13)
[2023-01-20 11:18] LABS: Hematocrit 26.7 % (37-47); Hemoglobin 8.6 g/dL (12.0-15.0)
--- NOTE | 2023-01-20 11:45 | PN.HOSP_ITS ---
Subjective Subjective Doing well no issues overnight Objective Data Objective Data Vital Signs: Vital Signs Temp Pulse Resp BP Pulse Ox O2 Del Method 98.0 F 75 14 114/66 93 Room Air 01/20/23 08:27 01/20/23 08:27 01/20/23 08:27 01/20/23 08:27 01/20/23 08:27 01/20/23 08:30 Oxygen Delivery Method Room Air Weight: 167 lb 8.821 oz Body Mass Index (BMI) 33.8 Intake & Output: Intake and Output for Last 24 Hours 01/19/23 01/20/23 01/21/23 03:59 03:59 03:59 Intake Total 2491.66 / 2491.66 3041.99 / 3041.99 1286.66 / 1286.66 Balance 2491.66 / 2491.66 3041.99 / 3041.99 1286.66 / 1286.66 Lab / Micro Data Result Diagrams: 01/20/23 11:10 01/18/23 11:15 Labs: Laboratory Results - last 24 hr 01/18/23 11:15: Crossmatch See Detail 01/19/23 14:10: POC Glucose 113 H 01/19/23 15:37: Hgb 6.9 L, Hct 22.1 L 01/19/23 17:46: POC Glucose 107 H 01/19/23 22:43: POC Glucose 134 H 01/20/23 03:57: WBC 4.4, RBC 2.72 L, Hgb 8.1 L, Hct 25.3 L, MCV 93.0, MCH 29.8, MCHC 32.0, RDW Std Deviation 48.7 H, RDW Coeff of Pete 14.8 H, Plt Count 60 L, MPV 11.0, Immature Gran % (Auto) 0.900, Neut % (Auto) 51.7, Lymph % (Auto) 36.6, [place] % (Auto) 6.4, Eos % (Auto) 3.7, Baso % (Auto) 0.7, Absolute Neuts (auto) 2.3, Absolute Lymphs (auto) 1.59, Nucleated RBC % 0.7 01/20/23 06:43: POC Glucose 182 H 01/20/23 11:10: Hgb 8.6 L, Hct 26.7 L Physical Exam Narrative General: Alert, Oriented x3, Cooperative, No apparent distress HEENT: Atraumatic, PERRLA, EOMI, Normocephalic Oral: Moist Mucosa Neck: Supple, No JVD Lungs: Diminished, Normal air movement, No rhonchi, No wheeze, No rales Cardiovascular: Regular rate, Regular Rhythm, Normal S1, Normal S2, No murmurs Abdomen: Soft, Non Tender, Non-Distended, No Hepato-splenomegaly Extremities: No edema, Capillary Refill Less than 3 Seconds Skin: No rashes, No breakdown Musculoskeletal: No Tenderness to Palpation of Joints or Extremities Neurological: Cranial nerves II-XII grossly intact, Motor Exam 5/5 strength throughout, Sensory exam intact to light touch and pain Psych/Mental Status: Normal Affect, Appropriate Assessment & Plan Assessment/Plan (1) GI (gastrointestinal bleed): PLAN: Plan 1. Upper GI bleed from grade 3 esophageal varices as well as 3 gastric AVMs with acute blood loss anemia ? EGD with grade 3 esophageal varices as well as 3 bleeding AVMs in the stomach and a nonbleeding duodenal ulcer ? Continue with PPI and octreotide ? Continue with Rocephin for prophylaxis ?Hemoglobin is improved on repeat today to 8.6 we will recheck in the morning and if stable could potentially consider discharge 2. DM2 ? Continue with sliding scale insulin ? ACHS ? We will make adjustments as necessary 3. Hypothyroidism ? Stable ? Continue symptom 4. Chronic migraines ? She does have Fioricet available DVT: SCDs Charges/Coding Visit Charges Inpatient E&M: 61293 Subs Hosp L2
[2023-01-20 12:10] LABS: Bedside Glucose 162 mg/dL (74-106)
--- NOTE | 2023-01-20 13:41 | PN_ITS ---
Subjective Subjective Patient is doing well. She underwent an upper endoscopy and was discovered to have grade 3 to grade 4 esophageal varices with stigmata of bleeding. 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 Both of which were treated. She is not having any chest pain, shortness of breath. Objective Data Objective Data Vital Signs: Vital Signs Temp Pulse Resp BP Pulse Ox O2 Del Method 98.0 F 75 14 114/66 93 Room Air 01/20/23 08:27 01/20/23 08:27 01/20/23 08:27 01/20/23 08:27 01/20/23 08:27 01/20/23 08:30 Oxygen Delivery Method Room Air Weight: 167 lb 8.821 oz Body Mass Index (BMI) 33.8 Intake & Output: Intake and Output for Last 24 Hours 01/18/23 01/19/23 01/20/23 23:59 23:59 23:59 Intake Total 1585 / 1585 3948.65 / 3948.65 1823.33 / 1823.33 Balance 1585 / 1585 3948.65 / 3948.65 1823.33 / 1823.33 Lab / Micro Data Result Diagrams: 01/20/23 11:10 01/18/23 11:15 Labs: Laboratory Results - last 24 hr 01/18/23 11:15: Crossmatch See Detail 01/19/23 14:10: POC Glucose 113 H 01/19/23 15:37: Hgb 6.9 L, Hct 22.1 L 01/19/23 17:46: POC Glucose 107 H 01/19/23 22:43: POC Glucose 134 H 01/20/23 03:57: WBC 4.4, RBC 2.72 L, Hgb 8.1 L, Hct 25.3 L, MCV 93.0, MCH 29.8, MCHC 32.0, RDW Std Deviation 48.7 H, RDW Coeff of Pete 14.8 H, Plt Count 60 L, MPV 11.0, Immature Gran % (Auto) 0.900, Neut % (Auto) 51.7, Lymph % (Auto) 36.6, [place] % (Auto) 6.4, Eos % (Auto) 3.7, Baso % (Auto) 0.7, Absolute Neuts (auto) 2.3, Absolute Lymphs (auto) 1.59, Nucleated RBC % 0.7 01/20/23 06:43: POC Glucose 182 H 01/20/23 11:10: Hgb 8.6 L, Hct 26.7 L 01/20/23 11:16: POC Glucose 162 H Physical Exam Narrative General: Alert, Oriented x3, Cooperative, No apparent distress HEENT: Atraumatic, PERRLA, EOMI, Normocephalic Oral: Moist Mucosa Neck: Supple, No JVD Lungs: Diminished, Normal air movement, No rhonchi, No wheeze, No rales Cardiovascular: Regular rate, Regular Rhythm, Normal S1, Normal S2, No murmurs Abdomen: Soft, Non Tender, Non-Distended, No Hepato-splenomegaly Extremities: No edema, Capillary Refill Less than 3 Seconds Skin: No rashes, No breakdown Musculoskeletal: No Tenderness to Palpation of Joints or Extremities Neurological: Cranial nerves II-XII grossly intact, Motor Exam 5/5 strength throughout, Sensory exam intact to light touch and pain Psych/Mental Status: Normal Affect, Appropriate Assessment & Plan Assessment/Plan (1) GI (gastrointestinal bleed): PLAN: Plan 1. Upper GI bleed-possibly from esophageal varices versus angiodysplastic lesions/duodenal ulcer-there is no active bleeding seen at the patient's EGD today, patient will be given 1 unit of packed red blood cells due to hemoglobin of 6.9. I placed the patient on gentamicin and vancomycin, but I would switch to Rocephin. #2 acute blood loss anemia-secondary to upper GI bleed from varices and angiodysplastic lesions, patient was transfused 1 unit of packed red blood cells. Hemoglobin seems to be improved. #3 hypothyroidism-patient will remain on Synthroid #4 type 2 diabetes-patient is on sliding scale insulin per fingerstick blood sugars at this time and a clear liquid diet #5 chronic migraines-patient was given Fioricet today for headache, I will write for every 6 hours as needed for headache Total clinical time spent by myself addressing the patient's medical issues, reviewing all of her data, and collaborating with patient's care team: 35 minutes Charges/Coding Visit Charges Inpatient E&M: 68810 Subs Hosp L3
[2023-01-20 15:24] VITALS: BP 108/64; PULSE 64; RESP 16; TEMP 36.6; O2SAT 94
[2023-01-20 17:00] LABS: Bedside Glucose 139 mg/dL (74-106)
[2023-01-20 22:00] VITALS: BP 110/74; PULSE 74; RESP 18; TEMP 37; O2SAT 92
[2023-01-20] MEDS: traZODone 50 MG Tablet PO (22:37)
[2023-01-20] MEDS: Gabapentin 800 MG Tablet PO (22:40)
[2023-01-20 23:00] LABS: Bedside Glucose 190 mg/dL (74-106)
[2023-01-21] MEDS: 0.9% Normal Saline 1,000 ML 100 ML IV ×2 (01:33→12:17)
[2023-01-21 04:03] VITALS: BP 114/67; PULSE 79; RESP 14; TEMP 36.8; O2SAT 94
[2023-01-21 04:05] VITALS: O2SAT 87
[2023-01-21 05:20] LABS: Absolute Lymphocyte Count 1.78 X10^3/uL (0.83-4.51); Absolute Neutrophil Count 3.3 X10^3/uL (2.0-7.7); Basophil# 0.03 X10^3/uL; Basophil% 0.5 % (0-1); Eosinophil# 0.16 X10^3/uL; Eosinophils% 2.8 % (0-5); Hematocrit 25.9 % (37-47); Hemoglobin 8.2 g/dL (12.0-15.0); Lymphocyte # 1.78 X10^3/ul (0.83-4.51); Lymphocyte % 31.3 % (19-41); Mean Corp Hgb Conc 31.7 g/dL (32-36); Mean Corpuscular Volume 94.9 fL (81-99); Mean Platelet Vol. 11.2 fl (6.2-12.0); NRBC Flagged by Analyzer 1.1 % (0-5); Neutrophil # 3.26 X10^3/uL (2.7-7.7); Neutrophil % 57.3 % (47-70); POSITIVE COUNT YES; Platelet Count 82 K/mm3 (150-450); RBC Distribution Width CV 15.4 % (11.6-14.6); RBC Distribution Width SD 50.6 fl (35.1-43.9); Red Blood Count 2.73 M/mm3 (4.2-5.4); White Blood Count 5.7 K/mm3 (4.4-11.0)
[2023-01-21 05:48] LABS: AST(SGOT) 47 U/L (15-37); Alanine Aminotransfer ALT/SGPT 36 U/L (13-56); Alkaline Phosphatase 69 U/L (45-117); Anion Gap 6 (5-15); BUN 9 mg/dL (7-18); BUN/Creat Ratio 13.7 RATIO (10-20); Calcium,Total 7.9 mg/dL (8.5-10.1); Chloride 109 mmol/L (98-107); Creatinine, Serum 0.66 mg/dL (0.55-1.02); EST Glomerular Filtration Rate 95 mL/min (>60); Est Glom Filt Rate - Afr Amer 115 mL/min (>60); Globulin 2.9 g/dL (2.2-4.2); Glucose 153 mg/dL (74-106); Potassium 3.9 mmol/L (3.5-5.1); Protein, Total 5.9 g/dL (6.4-8.2); Sodium Level 138 mmol/L (136-145)
[2023-01-21] MEDS: Levothyroxine 50 MCG Tablet PO (06:43)
[2023-01-21] MEDS: Insulin Lispro 100 UNIT/ML INSULN.PEN SC ×2 (06:43→12:15)
[2023-01-21 07:11] LABS: Bedside Glucose 173 mg/dL (74-106)
--- NOTE | 2023-01-21 07:39 | MRI_ITS ---
STUDY: MRI ABDOMEN WITH AND WITHOUT CONTRAST REASON FOR EXAM: Female, 67 years old. liver TECHNIQUE: Standardized fat and water weighted pulse sequences were obtained in all 3 orthogonal planes post contrast administration. IV clariscan 15ml was administered for the contrast portion of the examination. COMPARISON: 01/18/2023 CT abdomen and pelvis FINDINGS: The visualized lung bases are unremarkable. The visualized portions of the heart are within normal limits. There is a diffuse contour abnormality of the liver consistent with cirrhotic changes. Normal gallbladder and extrahepatic biliary system. There is mild splenomegaly. Normal pancreas. Normal bilateral adrenal glands. Normal right kidney. Normal left kidney. Normal visualized stomach. Again noted within the second portion of the duodenum is small area of enhancement along the lateral wall measuring approximately 1.5 cm with relative benign appearance and similar appearance compared to the prior CT exam. Normal colon. The appendix is visualized and appears normal. Normal abdominal aorta. Normal inferior vena cava. Normal retroperitoneum. Normal abdominal wall. Normal osseous structures. MRI/MRI Abd WITH and W/O Contrast IMPRESSION: 1. Again noted is lateral wall second portion duodenum enhancing component/lesion measuring 1.5 cm similar to the prior CT exam. Overall appearance appears benign. Recommend GI consult for direct visualization and tissue sampling. 2. Heterogeneous liver parenchyma with nodular contour concerning for cirrhotic liver morphology, clinically correlate. Mild splenomegaly is present. No evidence of focal enhancing lesion. Electronically Signed: Arias Dobbs DO at 16:58 EDT ,
[2023-01-21 10:28] VITALS: BP 106/59; PULSE 67; RESP 18; TEMP 36.4; O2SAT 95
[2023-01-21] MEDS: Nadolol 40 MG Tablet PO (10:30)
[2023-01-21] MEDS: Loratadine 10 MG Tablet PO (10:30)
[2023-01-21] MEDS: Ezetimibe 10 MG Tablet PO (10:30)
[2023-01-21] MEDS: Allopurinol 100 MG Tablet PO ×2 (10:30→16:05)
[2023-01-21] MEDS: NYSTATIN 500,000 UNIT/5 ML UDC 500000 UNIT PO ×2 (10:31→16:05)
[2023-01-21] MEDS: FLUOROMETHOLONE 1 DROP BOTTLE 1 DRP OPHTHALMIC (10:31)
[2023-01-21] MEDS: Ceftriaxone 1 GM/50 ML BAG IV (10:31)
[2023-01-21 12:40] LABS: Bedside Glucose 334 mg/dL (74-106)
[2023-01-21 13:32] LABS: Hematocrit 26.6 % (37-47); Hemoglobin 8.6 g/dL (12.0-15.0)
[2023-01-21 14:08] LABS: Partial Thromboplast Time 27.7 Seconds (24.1-36.2)
--- NOTE | 2023-01-21 15:52 | DCINST_ITS ---
Discharge Instructions Diet Discharge Diet: Low fat / Low cholesterol and Carb Control Diet Activity Discharge Activity: Return to Normal Activity Dressing / Incision Call your doctor if you observe: Fever of 101 or Higher, Shortness of breath, Dizziness, Fainting spells, Swelling in the ankles, Chest pain and Increased palpitations (irregular heartbeat) Follow Up Care Test Results: Test results from this visit will be discussed in further detail at your follow- up appointment, if applicable. Discharge Plan Admission Admit Date/Time: 01/18/23 15:07 Attending Provider: Gerber Moreno Primary Care Provider: Rian Julian Consulting Providers: Rian Kong Instructions Additional Instructions / Restrictions: Follow-up with your PCP in 3 to 5 days to monitor hemoglobin as an outpatient. Discharge Orders/Prescriptions Prescriptions: New nadolol 40 mg Tablet 40 mg PO DAILY Qty: 30 0RF nystatin 100,000 unit/mL Suspension 500,000 unit PO 4X/DAY 3 Days Qty: 60 0RF cefdinir 300 mg capsule 300 mg PO BID 2 Days Qty: 4 0RF Continued rizatriptan 10 MG tablet 10 mg PO PRN PRN (Reason: Migraine Headache) Rx Instructions: 1 tab at onset of headache, may repeat in 2 hours levothyroxine 50 MCG tablet 75 mcg PO DAILY topiramate 100 MG tablet 100 mg PO DAILY fexofenadine 180 mg Tablet 180 mg PO DAILY allopurinol 100 mg Tablet 100 mg PO BID pantoprazole 40 mg tablet,delayed release (DR/EC) 40 mg PO DAILY Label Comments: TAKE 1 TABLET BY MOUTH ONCE DAILY metformin 1,000 mg tablet 1,000 mg PO BID glimepiride 4 mg Tablet 4 mg PO DAILY gabapentin 400 mg Tablet 800 mg PO QHS Emgality Pen 120 mg/mL Pen Injector 120 mg SUBCUT QMONTH Trulicity 3 mg/0.5 mL Pen Injector 3 mg SUBCUT QWEEK erythromycin 5 mg/gram (0.5 %) ointment 1 applic ophthalmic (eye) QHS Label Comments: APPLY TO BOTH EYES NIGHTLY fluorometholone 0.1 % drops,suspension 1 drp ophthalmic (eye) BID Label Comments: 1 drop into both eyes twice a day INSTILL 1 DROP INTO EACH EYE TWICE DAILY Hair,Skin and Nails Tablet 1 tab PO DAILY Acidophilus Capsule 10 mg PO DAILY cranberry 500 mg Capsule 500 mg PO BID Rx Instructions: administer with meals cyclosporine [Restasis] 0.05 % dropperette 1 drp ophthalmic (eye) BID Label Comments: INSTILL 1 DROP INTO EACH EYE TWICE DAILY znhhbrvftvma-Ic-eysd-minerals 18-0.4 mg Tablet 2 tab PO DAILY PreserVision AREDS-2 250-90-40-1 mg Capsule 2 tab PO BID magnesium 200 mg Tablet 200 mg PO DAILY coenzyme Q10 [Co Q-10] 200 mg Capsule 200 mg PO DAILY apple cider vinegar 300 mg Tablet 300 mg PO DAILY Sambucus Elderberry 30-1.1-25 mg Tablet,Chewable 1 tab PO DAILY ezetimibe 10 mg tablet 10 mg PO DAILY Label Comments: TAKE 1 TABLET BY MOUTH ONCE DAILY Referrals / Follow Up: Rian Julian MD [Primary Care Provider] - Within 1 Week Toño Curtis DO [Med Staff - Active Staff] - Within 3 Months Disposition Disposition (needs filled in before D/C Order can be placed): Home, Self Care
[2023-01-21 16:00] VITALS: BP 110/68; PULSE 68; RESP 18; TEMP 36.4; O2SAT 95
--- NOTE | 2023-01-21 16:55 | PN_ITS ---
Subjective Subjective Patient is doing well. I had a long talk with the patient and her significant other. She gave me the number of her daughter to call and I told her that I will call her and feel everything. Her name is Rabia rodriguez and her phone number is [phone]. Objective Data Objective Data Vital Signs: Vital Signs Temp Pulse Resp BP Pulse Ox O2 Del Method O2 Flow Rate 97.5 F L 67 18 106/59 L 95 Room Air 2 01/21/23 10:28 01/21/23 10:01/21/23 10:28 01/21/23 10:28 01/21/23 10:28 01/21/23 10:01/21/23 04:10 Oxygen Flow Rate (L/min) 2 Oxygen Delivery Method Room Air Weight: 167 lb 8.821 oz Body Mass Index (BMI) 33.8 Intake & Output: Intake and Output for Last 24 Hours 01/19/23 01/20/23 01/21/23 23:59 23:59 23:59 Intake Total 3948.65 / 3948.65 2677.66 / 2677.66 2916.46 / 2916.46 Balance 3948.65 / 3948.65 2677.66 / 2677.66 2916.46 / 2916.46 Lab / Micro Data Result Diagrams: 01/21/23 13:14 01/21/23 04:06 Labs: Laboratory Results - last 24 hr 01/20/23 16:28: POC Glucose 139 H 01/20/23 22:35: POC Glucose 190 H 01/21/23 04:06: WBC 5.7, RBC 2.73 L, Hgb 8.2 L, Hct 25.9 L, MCV 94.9, MCH 30.0, MCHC 31.7 L, RDW Std Deviation 50.6 H, RDW Coeff of Pete 15.4 H, Plt Count 82 L, MPV 11.2, Immature Gran % (Auto) 1.100 H, Neut % (Auto) 57.3, Lymph % (Auto) 31.3, [place] % (Auto) 7.0, Eos % (Auto) 2.8, Baso % (Auto) 0.5, Absolute Neuts (auto) 3.3, Absolute Lymphs (auto) 1.78, Nucleated RBC % 1.1 01/21/23 04:06: Sodium 138, Potassium 3.9, Chloride 109 H, Carbon Dioxide 23.0, Anion Gap 6, BUN 9, Creatinine 0.66, Estim Creat Clear Calc 65.50, Est GFR (MDRD) Af Amer 115, Est GFR (MDRD) Non-Af 95, BUN/Creatinine Ratio 13.7, Glucose 153 H, Calcium 7.9 L, Total Bilirubin 0.30, AST 47 H, ALT 36, Alkaline Phos phatase 69, Total Protein 5.9 L, Albumin 3.0 L, Globulin 2.9, Albumin/Globulin Ratio 1.0 01/21/23 06:40: POC Glucose 173 H 01/21/23 12:14: POC Glucose 334 H 01/21/23 13:14: Hgb 8.6 L, Hct 26.6 L 01/21/23 13:48: APTT 27.7 Physical Exam Narrative General: Alert, Oriented x3, Cooperative, No apparent distress HEENT: Atraumatic, PERRLA, EOMI, Normocephalic Oral: Moist Mucosa Neck: Supple, No JVD Lungs: Diminished, Normal air movement, No rhonchi, No wheeze, No rales Cardiovascular: Regular rate, Regular Rhythm, Normal S1, Normal S2, No murmurs Abdomen: Soft, Non Tender, Non-Distended, No Hepato-splenomegaly Extremities: No edema, Capillary Refill Less than 3 Seconds Skin: No rashes, No breakdown Musculoskeletal: No Tenderness to Palpation of Joints or Extremities Neurological: Cranial nerves II-XII grossly intact, Motor Exam 5/5 strength throughout, Sensory exam intact to light touch and pain Psych/Mental Status: Normal Affect, Appropriate Assessment & Plan Assessment/Plan (1) GI (gastrointestinal bleed): PLAN: Plan 1. Upper GI bleed-possibly from esophageal varices versus angiodysplastic lesions/duodenal ulcer-there is no active bleeding seen at the patient's EGD today, patient will be given 1 unit of packed red blood cells due to hemoglobin of 6.9. I placed the patient on gentamicin and vancomycin, but I would switch to Rocephin. #2 acute blood loss anemia-secondary to upper GI bleed from varices and angiodysplastic lesions, patient was transfused 1 unit of packed red blood cells. Hemoglobin seems to be improved. #3 hypothyroidism-patient will remain on Synthroid #4 type 2 diabetes-patient is on sliding scale insulin per fingerstick blood sugars at this time and a clear liquid diet #5 chronic migraines-patient was given Fioricet today for headache, I will write for every 6 hours as needed for headache Total clinical time spent by myself addressing the patient's medical issues, reviewing all of her data, and collaborating with patient's care team: 35 minutes Charges/Coding Visit Charges Inpatient E&M: 81456 Subs Hosp L3
--- NOTE | 2023-01-21 17:31 | DS.PCM_ITS ---
Providers Date of Admission: 01/18/23 Primary Care Physician: Dr. Rian Julian MD Consultations 01/18/23 16:47 Consult: Gastroenterology Routine Consulting Provider: [facility] Reason for Consult: hematemesis EMERGENT Consult: No MD Notified: Yes Date Notified: 01/18/23 Time Notified: 15:12 Method of Notification: Verbal Reason For Visit: UPPER GI BLEED, HEMATEMESIS Diagnosis Discharge Diagnosis (1) GI (gastrointestinal bleed): Status: Acute Code(s): K92.2 - Gastrointestinal hemorrhage, unspecified Medications at Discharge Home Medications levothyroxine 50 mcg tablet 75 mcg PO DAILY Check with primary doctor 12/28/13 rizatriptan 10 mg tablet 10 mg PO PRN PRN Migraine Headache 12/28/13 topiramate 100 mg tablet 100 mg PO DAILY Check with primary doctor 12/28/13 Lactobacillus acidophilus (Acidophilus capsule) 10 mg PO DAILY Check with primary doctor 01/18/23 allopurinol 100 mg tablet 100 mg PO BID Check with primary doctor 01/18/23 apple cider vinegar 300 mg tablet 300 mg PO DAILY health maintence 01/18/23 coenzyme Q10 200 mg capsule (Co Q-10) 200 mg PO DAILY Check with primary doctor 01/18/23 cranberry 500 mg capsule 500 mg PO BID Check with primary doctor 01/18/23 cyclosporine 0.05 % eye drops in a dropperette (Restasis) 1 drp ophthalmic (eye) BID health maintenance 01/18/23 dulaglutide 3 mg/0.5 mL subcutaneous pen injector (Trulicity) 3 mg subcut QWEEK Check with primary doctor 01/18/23 erythromycin 5 mg/gram (0.5 %) eye ointment 1 applic ophthalmic (eye) Q health maintenance 01/18/23 ezetimibe 10 mg tablet 10 mg PO DAILY Check with primary doctor 01/18/23 fexofenadine 180 mg tablet 180 mg PO DAILY Check with primary doctor 01/18/23 fluorometholone 0.1 % eye drops,suspension 1 drp ophthalmic (eye) BID health maintenance 01/18/23 gabapentin 400 mg tablet 800 mg PO QHS health maintenance 01/18/23 galcanezumab-gnlm 120 mg/mL subcutaneous pen injector (Emgality Pen) 120 mg subcut QMONTH Check with primary doctor 01/18/23 glimepiride 4 mg tablet 4 mg PO DAILY Check with primary doctor 01/18/23 magnesium 200 mg tablet 200 mg PO DAILY Check with primary doctor 01/18/23 metformin 1,000 mg tablet 1,000 mg PO BID diabetic 01/18/23 multivitamin with minerals (Hair,Skin and Nails tablet) 1 tab PO DAILY Check with primary doctor 01/18/23 kxjtnfroivlf-Mj-hbjw-minerals 18 mg-0.4 mg tablet 2 tab PO DAILY health maintenance 01/18/23 pantoprazole 40 mg tablet,delayed release 40 mg PO DAILY health maintenance 01/18/23 vit C 250 mg-vit E 90 mg-zinc 40 mg-copper 1 yl-sxdrif-bligkn capsule (Pres erVision AREDS-2) 2 tab PO BID Check with primary doctor 01/18/23 vitamin C 30 mg-zinc citrate 1.1 mg-elderberry 25 mg chewable tablet (Sambucus Elderberry) 1 tab PO DAILY Check with primary doctor 01/18/23 cefdinir 300 mg capsule 300 mg PO BID 2 days #4 caps 01/21/23 lactulose 20 gram/30 mL oral solution 20 g (30 mL) PO TID #3,000 mL 01/21/23 nadolol 40 mg tablet 40 mg PO DAILY #30 tabs 01/21/23 nystatin 100,000 unit/mL oral suspension 500,000 unit (5 mL) PO 4X/DAY 3 days #60 mL 01/21/23 Hospital Course Operations None Procedures EGD Summary of Care Provided Minutes Spent on Discharge: 45 Hospital Course: Per HPI: JAVON CAMPBELL, is a 67 F who presents to the emergency room at [facility] after having an episode of hematemesis approximately 930 this morning, patient has had no more episodes today, she does not feel weak or fatigued, patient has never had a history of upper GI bleeds to her knowledge, she was diagnosed with anemia last fall and had a colonoscopy which did not show anything significant according to her, she was placed on iron therapy but taken off this therapy in November 2022, her doctor told her that she did not need the iron anymore that her hemoglobin was normal.? We do not have a hemoglobin in this record recently, she is a [facility] patient.? Patient states that she feels as if she has acid feeling in her stomach.? She does take Protonix 40 mg daily on a continuous basis.? She denies any frequent use of any nonsteroidals or aspirin. Labs performed in the emergency room showed the patient's white blood cell count to be elevated 18.2, hemoglobin was 9.9, platelet count was 141,000, patient's chemistry profile was remarkable for glucose of 255. CT of the abdomen and pelvis was remarkable for a 12 x 14 mm enhancing nodule on the wall of the proximal duodenum. Patient was admitted to PCU for upper GI bleed, she was placed on Protonix drip and she will get every 4 hour H&H's drawn, I have elected to keep her on her home medications at this time with the exception of the metformin, I do not think she needs fingerstick blood sugars at this time.? I talked briefly with gastroenterology about her care. Hospital Course: 1. Upper GI bleed from grade 3 esophageal varices as well as 3 gastric AVMs with acute blood loss anemia as well as a 1.2 x 1.4 cm enhancing nodule in the wall of the proximal duodenum ? EGD with grade 3 esophageal varices as well as 3 bleeding AVMs in the stomach and a nonbleeding duodenal ulcer ? Continue with PPI ? Continue with Rocephin and nystatin for prophylaxis ?This morning her hemoglobin was 8.2, on repeat in the afternoon it was 8.6 indicating stabilization ? I discussed with her the plan for possible discharge today she expressed understanding of the risk benefits going home and would like to go home today. She will continue with Rocephin and nystatin for another 3 days as well as a PPI on discharge. I do recommend that she follow-up with a PCP in 3 to 5 days as well as gastroenterology in the next 1 to 3 months for continued work-up of her cirrhosis as well as repeat EGD for further treatment of her esophageal varices. MRI was unremarkable and consistent with cirrhosis. 2. DM2 ? Continue with sliding scale insulin ? ACHS ? We will make adjustments as necessary ? She can resume her home medications on discharge 3. Hypothyroidism ? Stable ? Continue symptom 4. Chronic migraines ? She does have Fioricet available Physical Exam Narrative General: Alert, Oriented x3, Cooperative, No apparent distress HEENT: Atraumatic, PERRLA, EOMI, Normocephalic Oral: Moist Mucosa Neck: Supple, No JVD Lungs: Diminished, Normal air movement, No rhonchi, No wheeze, No rales Cardiovascular: Regular rate, Regular Rhythm, Normal S1, Normal S2, No murmurs Abdomen: Soft, Non Tender, Non-Distended, No Hepato-splenomegaly Extremities: No edema, Capillary Refill Less than 3 Seconds Skin: No rashes, No breakdown Musculoskeletal: No Tenderness to Palpation of Joints or Extremities Neurological: Cranial nerves II-XII grossly intact, Motor Exam 5/5 strength throughout, Sensory exam intact to light touch and pain Psych/Mental Status: Normal Affect, Appropriate Weight / BMI Weight Weight: 167 lb 8.821 oz Body Mass Index (BMI) 33.8 ABG / Lab / Microbiology Data Result Diagrams: 01/21/23 13:14 01/21/23 04:06 Laboratory: Laboratory Results - last 24 hr 01/20/23 22:35: POC Glucose 190 H 01/21/23 04:06: WBC 5.7, RBC 2.73 L, Hgb 8.2 L, Hct 25.9 L, MCV 94.9, MCH 30.0, MCHC 31.7 L, RDW Std Deviation 50.6 H, RDW Coeff of Pete 15.4 H, Plt Count 82 L, MPV 11.2, Immature Gran % (Auto) 1.100 H, Neut % (Auto) 57.3, Lymph % (Auto) 31.3, [place] % (Auto) 7.0, Eos % (Auto) 2.8, Baso % (Auto) 0.5, Absolute Neuts (auto) 3.3, Absolute Lymphs (auto) 1.78, Nucleated RBC % 1.1 01/21/23 04:06: Sodium 138, Potassium 3.9, Chloride 109 H, Carbon Dioxide 23.0, Anion Gap 6, BUN 9, Creatinine 0.66, Estim Creat Clear Calc 65.50, Est GFR (M DRD) Af Amer 115, Est GFR (MDRD) Non-Af 95, BUN/Creatinine Ratio 13.7, Glucose 153 H, Calcium 7.9 L, Total Bilirubin 0.30, AST 47 H, ALT 36, Alkaline Phosphatase 69, Total Protein 5.9 L, Albumin 3.0 L, Globulin 2.9, Albumin/Globulin Ratio 1.0 01/21/23 06:40: POC Glucose 173 H 01/21/23 12:14: POC Glucose 334 H 01/21/23 13:14: Hgb 8.6 L, Hct 26.6 L 01/21/23 13:48: APTT 27.7 Radiography Diagnostic Testing: Radiology Impression Abdomen MRI 01/21/23 07:39 IMPRESSION: 1. Again noted is lateral wall second portion duodenum enhancing component/lesion measuring 1.5 cm similar to the prior CT exam. Overall appearance appears benign. Recommend GI consult for direct visualization and tissue sampling. 2. Heterogeneous liver parenchyma with nodular contour concerning for cirrhotic liver morphology, clinically correlate. Mild splenomegaly is present. No evidence of focal enhancing lesion. Electronically Signed: Arias DobbsDO at 16:58 EDT , D/C Instructions Discharge Diet: Low fat / Low cholesterol and Carb Control Diet Call your doctor if you observe: Fever of 101 or Higher, Shortness of breath, Dizziness, Fainting spells, Swelling in the ankles, Chest pain and Increased palpitations (irregular heartbeat) Meaningful Use Info Meaningful Use Diagnoses (Choose all that apply): None applicable Discharge Plan Admission Admit Date/Time: 01/18/23 15:07 Attending Provider: Gerber Moreno Primary Care Provider: Rian Julian Consulting Providers: Rian Kong Instructions Additional Instructions / Restrictions: Follow-up with your PCP in 3 to 5 days to monitor hemoglobin as an outpatient. Discharge Orders/Prescriptions Prescriptions: New nadolol 40 mg Tablet 40 mg PO DAILY Qty: 30 0RF nystatin 100,000 unit/mL Suspension 500,000 unit PO 4X/DAY 3 Days Qty: 60 0RF cefdinir 300 mg capsule 300 mg PO BID 2 Days Qty: 4 0RF Continued rizatriptan 10 MG tablet 10 mg PO PRN PRN (Reason: Migraine Headache) Rx Instructions: 1 tab at onset of headache, may repeat in 2 hours levothyroxine 50 MCG tablet 75 mcg PO DAILY topiramate 100 MG tablet 100 mg PO DAILY fexofenadine 180 mg Tablet 180 mg PO DAILY allopurinol 100 mg Tablet 100 mg PO BID pantoprazole 40 mg tablet,delayed release (DR/EC) 40 mg PO DAILY Label Comments: TAKE 1 TABLET BY MOUTH ONCE DAILY metformin 1,000 mg tablet 1,000 mg PO BID glimepiride 4 mg Tablet 4 mg PO DAILY gabapentin 400 mg Tablet 800 mg PO QHS Emgality Pen 120 mg/mL Pen Injector 120 mg SUBCUT QMONTH Trulicity 3 mg/0.5 mL Pen Injector 3 mg SUBCUT QWEEK erythromycin 5 mg/gram (0.5 %) ointment 1 applic ophthalmic (eye) QHS Label Comments: APPLY TO BOTH EYES NIGHTLY fluorometholone 0.1 % drops,suspension 1 drp ophthalmic (eye) BID Label Comments: 1 drop into both eyes twice a day INSTILL 1 DROP INTO EACH EYE TWICE DAILY Hair,Skin and Nails Tablet 1 tab PO DAILY Acidophilus Capsule 10 mg PO DAILY cranberry 500 mg Capsule 500 mg PO BID Rx Instructions: administer with meals cyclosporine [Restasis] 0.05 % dropperette 1 drp ophthalmic (eye) BID Label Comments: INSTILL 1 DROP INTO EACH EYE TWICE DAILY njrxlqfnqjcf-Ni-lfpu-minerals 18-0.4 mg Tablet 2 tab PO DAILY PreserVision AREDS-2 250-90-40-1 mg Capsule 2 tab PO BID magnesium 200 mg Tablet 200 mg PO DAILY coenzyme Q10 [Co Q-10] 200 mg Capsule 200 mg PO DAILY apple cider vinegar 300 mg Tablet 300 mg PO DAILY Sambucus Elderberry 30-1.1-25 mg Tablet,Chewable 1 tab PO DAILY ezetimibe 10 mg tablet 10 mg PO DAILY Label Comments: TAKE 1 TABLET BY MOUTH ONCE DAILY No Action lactulose 20 gram/30 mL solution 20 g PO TID Qty: 3000 3RF Referrals / Follow Up: Rian Julian MD [Primary Care Provider] - Within 1 Week Toño Curtis DO [Med Staff - Active Staff] - Within 3 Months Disposition Disposition (needs filled in before D/C Order can be placed): Home, Self Care Charges/Coding Visit Charges Inpatient E&M: 49754 Disch Hosp >30min
[2023-01-22 14:22] LABS: AFP, Tumor Marker 2.6 ng/mL (0.0-9.2)
== END 2023-01-21 17:26 | disposition home or self-care (01) | DRG 377 ==
LOC: ED 15:08 → PCU 15:23
PROVIDERS: Anesthesiology; Hospitalist; Internal Medicine Gastroenterology; Physician Assistant; Admitting Provider Internal Medicine; Emergency Provider Student in an Organized Health Care Education/Training Program; PCP Family Medicine; Visit Provider Family Medicine
PROC: 0DJ08ZZ Inspection of Upper Intestinal Tract, Via Natural or Artificial Opening Endoscopic (ICD-10-PCS; CPT 43235; principal; 2023-01-19 16:25)
DX: K31.811 Angiodysplasia of stomach and duodenum with bleeding (principal); I85.11 Secondary esophageal varices with bleeding; K76.6 Portal hypertension; D62 Acute posthemorrhagic anemia; D69.59 Other secondary thrombocytopenia; E11.9 Type 2 diabetes mellitus without complications; E03.9 Hypothyroidism, unspecified; G43.909 Migraine, unspecified, not intractable, without status migrainosus; Z79.4 Long term (current) use of insulin; K75.81 Nonalcoholic steatohepatitis (NASH); K21.9 Gastro-esophageal reflux disease without esophagitis; K26.9 Duodenal ulcer, unspecified as acute or chronic, without hemorrhage or perforation; Z79.84 Long term (current) use of oral hypoglycemic drugs; Z79.899 Other long term (current) drug therapy; Z87.891 Personal history of nicotine dependence
CPT/HCPCS: 36415; 74177; 74183; 80053; 82105; 82962; 83690; 83735; 85014; 85018; 85025; 85610; 85730; 86850; 86900; 86901; 86920; 93005; 97802; 99284; A9575; J7030; J7040; P9016; Q9967; A4216; J2405; J3490

== ENCOUNTER → 2023-03-20 | Outpatient (CLI) | payer MEDICARE, BC, SELFPAY ==
[2023-03-20 11:27] LABS: Erythrocyte Sedimentation Rate 16 mm/hr (0-30)
[2023-03-20 11:31] LABS: Absolute Lymphocyte Count 1.45 X10^3/uL (0.83-4.51); Absolute Neutrophil Count 2.9 X10^3/uL (2.0-7.7); Basophil# 0.04 X10^3/uL; Basophil% 0.8 % (0-1); Eosinophil# 0.25 X10^3/uL; Hematocrit 39.5 % (37-47); Hemoglobin 12.2 g/dL (12.0-15.0); Lymphocyte # 1.45 X10^3/ul (0.83-4.51); Lymphocyte % 29.1 % (19-41); Mean Corp Hgb Conc 30.9 g/dL (32-36); Mean Corpuscular Hgb 29.7 pg (27.0-32.0); Mean Corpuscular Volume 96.1 fL (81-99); Monocyte# 0.32 X10^3/uL; Monocyte% 6.4 % (0-10); NRBC Flagged by Analyzer 0 % (0-5); Neutrophil % 58.1 % (47-70); POSITIVE COUNT YES; Platelet Count 71 K/mm3 (150-450); RBC Distribution Width CV 16.2 % (11.6-14.6); RBC Distribution Width SD 57.1 fl (35.1-43.9); Red Blood Count 4.11 M/mm3 (4.2-5.4)
[2023-03-20 11:45] LABS: ALB/GLOB Ratio 1.1 RATIO (0.9-2.4); AST(SGOT) 40 U/L (15-37); Alanine Aminotransfer ALT/SGPT 37 U/L (13-56); Alkaline Phosphatase 98 U/L (45-117); Anion Gap 7 (5-15); BUN 9 mg/dL (7-18); BUN/Creat Ratio 12.5 RATIO (10-20); Calcium,Total 9.3 mg/dL (8.5-10.1); Chloride 109 mmol/L (98-107); Creatinine, Serum 0.72 mg/dL (0.55-1.02); EST Glomerular Filtration Rate 86 mL/min (>60); Est Glom Filt Rate - Afr Amer 104 mL/min (>60); Globulin 3.8 g/dL (2.2-4.2); Glucose 99 mg/dL (74-106); LDH 155 U/L (84-246); Potassium 3.9 mmol/L (3.5-5.1); Protein, Total 7.8 g/dL (6.4-8.2); Sodium Level 142 mmol/L (136-145)
[2023-03-20 12:35] LABS: HIV - WCH Non-Reactive (Nonreactive); Hepatitis B Surface Antibody Reactive
[2023-03-23 15:07] LABS: Anti-Centromere B Ab <0.2 AI (0.0-0.9); Anti-Chromatin <0.2 AI (0.0-0.9); Anti-Jo <0.2 AI (0.0-0.9); Anti-Mitochondrial AB <20.0 Units (0.0-20.0); Anti-Scleroderma-70 AB <0.2 AI (0.0-0.9); Anti-dsDNA Ab <1 IU/mL (0-9); RNP Ab <0.2 AI (0.0-0.9); SJOGREN'S Anti-SS-A test < 0.2 AI (0.0-0.9); SJOGREN'S Anti-SS-B test < 0.2 AI (0.0-0.9); Smith Ab <0.2 AI (0.0-0.9)
[2023-03-25 03:07] LABS: Angiotensin Convert Enzyme 57 U/L (14-82); Anti-Smooth Muscle ABS 6 Units (0-19); Ceruloplasmin 17.7 mg/dL (19.0-39.0); Copper, Serum or Plasma 68 ug/dL (80-158); Cytoplasmic Ab (C-ANCA) <1:20 titer (Neg:<1:20); HEPATITIS B SURFACE AG Negative (Negative); Haptoglobin 102 mg/dL (37-355); Hep C Antibodies Non Reactive (Non Reactive); Hepatitis A IgM Antibody Negative (Negative); Hepatitis B Core AB IgM Negative (Negative); IgG, Quant 941 mg/dL (586-1602); Immunoglobulin G, Subclass 1 700 mg/dL (248-810); Immunoglobulin G, Subclass 2 142 mg/dL (130-555); Immunoglobulin G, Subclass 3 24 mg/dL (15-102); Immunoglobulin G, Subclass 4 96 mg/dL (2-96); Perinuclear Ab (P-ANCA) <1:20 titer (Neg:<1:20)
== END | disposition home or self-care (01) ==
LOC: LAB 10:58
PROVIDERS: PCP Family Medicine; Referring Provider Nurse Practitioner Adult Health; Visit Provider Nurse Practitioner Adult Health
DX: K74.60 Unspecified cirrhosis of liver (principal); D69.6 Thrombocytopenia, unspecified; K92.2 Gastrointestinal hemorrhage, unspecified
CPT/HCPCS: 36415; 80053; 80074; 82140; 82164; 82390; 82525; 82784; 82787; 83010; 83516; 83615; 85025; 85610; 85652; 86140; 86225; 86235; 86256; 86703; 86706

== ENCOUNTER → 2023-04-02 | Outpatient (CLI) | payer MEDICARE, BC, SELFPAY ==
--- NOTE | 2023-04-02 07:01 | US_ITS ---
Study: Limited 4 quadrant ultrasound survey of the abdomen for ascites. HISTORY: Check for ascites. COMPARISON: CT scan 01/18/2023 FINDINGS: No ascites seen. Electronically Signed: Shiraz Limon MD at 18:25 EDT , US/Abdomen Limited IMPRESSION: undefined
== END | disposition home or self-care (01) ==
LOC: US 06:59
PROVIDERS: PCP Family Medicine; Referring Provider Nurse Practitioner Adult Health; Visit Provider Nurse Practitioner Adult Health
DX: K74.60 Unspecified cirrhosis of liver (principal)
CPT/HCPCS: 76705

== ENCOUNTER 2023-04-08 05:49 | Day surgery (SDC) | payer MEDICARE, BC, SELFPAY ==
--- NOTE | 2023-04-08 | IMM_PTH ---
PATIENT: JAVON CAMPBELL LOC: EN U#:[id number] AGE/SX: 67/F ROOM: RE04/08/[address]: Dr. Toño Curtis DO : 1955 BED: DIS: 04/08/2023 SPEC #: [id number] RECD: 04/10/23 13:14 STATUS: SADAF REKeyur #: [id number] ABRAHAM: 04/08/23 00:[address]: Toño Curtis DEPT: IMMUNOHISTOCHEMISTRY RECD BY: Mariel Trimble ENTERED: 04/10/23 13:14 SP TYPE: IMMUNO OTHR DR: Dr. Rian Julian MD Tissues: B - Stomach, NOS Procedures: H Pylori (initial) PHYSICIAN & INSTITUTION [place] [id number] SPECIMEN INFORMATION: Tissue Source: B ? [place] Clinical Info: Cirrhosis Specimen Number: [id number] CPT code: 28587 METHODOLOGY: Deparaffinized sections of prefer/formalin-fixed tissue or PAP/DQ stained slides are incubated with monoclonal/polyclonal antibodies/oligonucleotide probes. Localization is made via biotin free immunoperoxidase method. Appropriate controls are performed and reacted as expected. Results on target cell population are indicated in the following table: RESULTS: ANTIBODY / CLONE RESULT Block B H Pylori (polyclonal) negative These tests were developed and their performance characteristics determined by [facility]. They may not have been cleared or approved by the U.S. Food and Drug Administration. The FDA has determined that such clearance or approval is not necessary. The above immunohistochemical/dualISH markers are ordered and reviewed by the Pathologist. INTERPRETATION: B. Stomach, lesser curvature, biopsy: Negative for Helicobacter pylori organisms. AM:james 04/13/2023
[2023-04-08 06:21] VITALS: BP 105/75; PULSE 73; RESP 16; TEMP 36.7; O2SAT 100; BMI 33.3
[2023-04-08] MEDS: Lactated Ringers 1,000 ML 15 ML IV (06:25)
[2023-04-08 06:44] LABS: Bedside Glucose 136 mg/dL (74-106)
--- NOTE | 2023-04-08 07:00 | EGD_PTH ---
PATIENT: JAVON CAMPBELL LOC: EN U#:[id number] AGE/SX: 67/F ROOM: RE04/08/[address]: Dr. Toño Curtis DO : 1955 BED: DIS: 04/08/2023 SPEC #: [id number] RECD: 04/08/23 13:23 STATUS: SADAF RODGER #: [id number] ABRAHAM: 04/08/23 07:[address]: Toño Curtis DEPT: SURGICAL PATHOLOGY RECD BY: Theresa Betts ENTERED: 04/09/23 08:42 SP TYPE: EGD BIOPSY BUCK DR: Dr. Rian Julian MD Tissues: A - Duodenum, NOS B - Esophagus, NOS Procedures: Surgery Specimen Level IV HEADER OPERATION: EGD (MAC) with biopsy and banding PRE-OP DIAGNOSIS: Cirrhosis TISSUE SUBMITTED: A ? Duodenal nodule, B ? Lesser curvature MICROSCOPIC DIAGNOSIS A. Duodenal nodule, biopsy: Polypoid fragment of small bowel with vascular ectasia and edema. B. Stomach, lesser curvature, biopsy: Mild chronic gastritis. See comment. AM:james 04/10/2023 COMMENT B. The results of immunohistochemistry for Helicobacter pylori will be reported separately ([id number]). MICROSCOPIC DESCRIPTION Slides are reviewed. GROSS DESCRIPTION A - Received in fixative is one container labeled with the patient's name and designated duodenal nodule. The specimen consists of one irregular fragment of light allen soft tissue that measures 0.3 x 0.2 x 0.1 cm. The specimen is totally submitted in one cassette. B - Received in fixative is one container labeled with the patient's name and designated lesser curvature. The specimen consists of one irregular fragment of light allen soft tissue that measures 0.5 x 0.5 x 0.1 cm. The specimen is totally submitted in one cassette. / AM:james 04/09/2023 TC:3 CPT: 42099 x2
--- NOTE | 2023-04-08 07:05 | PCM.HP.BLA ---
History and Physical Date of Admission: 04/08/23 67 F who presents to the office today for f/u hospitalization at [facility] 01/18/23-01/21/23 for upper GI bleed. Accompanied by and daughter; daughter is RN at [employer] in [place] so she is well-versed re cirrhosis. She had presented to ED with hematemesis. Hgb was as low as 6.9 during hospitalization, it was 8.6 at discharge. Received 1 unit PRBC. EGD revealed bleeding esophageal varices as well as 3 bleeding angiodysplastic lesions in the stomach. She received a new diagnosis of cirrhosis--both CT and MRI findings were consistent with cirrhotic liver. She is thrombocytopenic. CT and MR showed duodenal lesion. Dr Curtis didn't see a mass, just a duodenal ulcer. Pt reports acidic stomach despite pantoprazole 40 mg which she has been on for about 10 yrs, feels like acid isn't draining, gets nausea. Taking lactulose once a day because it gives her diarrhea. Previously her normal was BM every 3-4 days. Dark stools, she thinks from iron. 03/03/23 labs at [facility]: hgb 12.9, iron 55, ferritin 32, hbg a1c 5.6. She was discharged on nadolol but rx ran out. No ascites so not on diuretics. says some mild forgetfulness. Sleep is good. Feels tired. Jaundice no. Bleeding no. Pruritus no. 01/2023 AFP 2.6 normal 01/18/23 CT/Abdomen/Pelvis W IV Cont ONLY IMPRESSION:? (NOT LISTED IN ORDER OF SIGNIFICANCE) In the wall of the proximal duodenum, there is an enhancing nodule. This is 12 x 14mm. It is on the lateral wall. Se 2 IM: 40. Se601 IM: 46. This can be a mass or artifact from peristaltic contractions. However, given the patients history, recommend direct visualization with upper endoscopy. This area was underdistended on the prior study so a direct comparison cannot be obtained. There is hepatomegaly with diffuse hepatic enlargement. There is a diffuse contour abnormality of the liver consistent with cirrhotic changes. ? 01/21/23 MRI/MRI Abd WITH and W/O Contrast IMPRESSION: 1. Again noted is lateral wall second portion duodenum enhancing component/lesion measuring 1.5 cm similar to the prior CT exam. Overall appearance appears benign. Recommend GI consult for direct visualization and tissue sampling. 2. Heterogeneous liver parenchyma with nodular contour concerning for cirrhotic liver morphology, clinically correlate. Mild splenomegaly is present. No evidence of focal enhancing lesion. 01/19/23 EGD Impression: ? - Bleeding grade III esophageal varices. ? Incompletely eradicated. Banded. ? 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 Treated with a heater probe. ? - One non-bleeding duodenal ulcer with no ? stigmata of bleeding. ? - No specimens collected. ROS Const Constitutional: Positive for fatigue; No fever(s), frequent falls, headache(s), weakness or weight change ENT ENT: No headache(s) or difficulty swallowing Cardio Cardiology: No leg pain with exertion Gastro GI: Positive for abdominal pain, change in bowel habits, constipation, heartburn and nausea/dyspepsia; No bloating, diarrhea, difficulty swallowing, excessive flatus, Vomiting blood/hematemesis, Blood in stool or vomiting Musc Musculoskeletal: Positive for joint pain, back pain, joint swelling, stiffness and Arthritis; No muscle cramps, muscle weakness, numbness, tingling, sciatica, restless legs, leg pain at night or leg pain with exertion Skin Skin: No dry skin, lesions, itchy eyes or rash Neuro Neurology: No behavioral changes, unsteady gait/balance, weakness, frequent falls, headache(s), numbness, tingling, restless legs, tremor(s), Increased tone in limbs, paralysis or seizures Psych Psychiatric: No anxiety, No behavioral changes, No depression, No paranoia, No Compulsive Behavior, No hyperactivity, No inattentiveness, No obsessions/compulsions, No Temper Tantrums and No suicidal ideation Endo Endocrine: Positive for fatigue; No weight change Aller/Imm Allergy/Immunologic: No itchy eyes Candelario/Lymp Hematologic/Lymphatic: No easy bleeding or easy bruising Exam Const General: cooperative and comfortable Nutritional Appearance: obese Orientation: alert, awake and oriented x3 Eyes Sclera: sclerae normal Resp Effort & Inspection: normal respiratory effort GI Inspection: obesity Skin General: no jaundice Neuro Speech: speech normal Gait: normal gait Extrem General: pedal edema present Psych Mood: euthymic mood Quality Reporting Tobacco Screening ([facility]) Smoking Status: Former smoker Assessment and Plan Assessment and Plan (1) Cirrhosis: ?Status:?Chronic ?Plan: 67 yr old female with new diagnosis cirrhosis, recent UGIB I discussed the ?duodenal lesion seen on CT and MR with Dr Curtis, he recommends repeat CT 3 mos, if duod lesion still present then refer for EUS Have staff call her thursday to schedule EGD in one month I'll send portal msg with lab results Continue lactulose Resume nadolol Handout from [place] on cirrhosis, recommend low sodium diet Increase pantoprazole 40 mg to BID, see if acidic stomach and nausea resolve ? ? ? Orders: Orders Ammonia Today K74.60 - Unspecified cirrhosis of liver ? KILEY Comprehensive Panel Today K74.60 - Unspecified cirrhosis of liver ? ANCA Today K74.60 - Unspecified cirrhosis of liver ? Angiotensin Convert Enzyme Today K74.60 - Unspecified cirrhosis of liver ? Anti-Mitochondrial AB Today K74.60 - Unspecified cirrhosis of liver ? Anti-Smooth Muscle ABS Today K74.60 - Unspecified cirrhosis of liver ? Prothrombin Time w/INR Today K74.60 - Unspecified cirrhosis of liver, K92.2 - Gastrointestinal hemorrhage, unspecified ? Erythrocyte Sed Rate Today K74.60 - Unspecified cirrhosis of liver ? CRP Today K74.60 - Unspecified cirrhosis of liver ? Copper, Serum or Plasma Today K74.60 - Unspecified cirrhosis of liver ? Ceruloplasmin Today K74.60 - Unspecified cirrhosis of liver ? Hepatitis Panel Acute Today K74.60 - Unspecified cirrhosis of liver ? HIV - [facility] Today D69.6 - Thrombocytopenia, unspecified, K74.60 - Unspecified cirrhosis of liver ? LDH Today K74.60 - Unspecified cirrhosis of liver ? Haptoglobin Today K74.60 - Unspecified cirrhosis of liver ? Hepatitis B Surface Antibody Today K74.60 - Unspecified cirrhosis of liver ? Comprehensive Metabolic Profil Today K74.60 - Unspecified cirrhosis of liver ? CBC W/Diff, Automated Today K74.60 - Unspecified cirrhosis of liver, K92.2 - Gastrointestinal hemorrhage, unspecified ? IgG Subclasses Today K74.60 - Unspecified cirrhosis of liver ? Medications: Changed From pantoprazole 40 mg? PO DAILY health maintenance ? ? To pantoprazole 40 mg? PO BID 180 tabs 0RF ? ? Refilled nadolol 40 mg? PO DAILY 90 tabs 3RF ? ? I have examined the patient and the H&P has been reviewed. There are no clinical changes since date of exam.
[2023-04-08 07:30] VITALS: BP 105/75; BP 145/86; PULSE 76; RESP 16; TEMP 36.3; O2SAT 97
--- NOTE | 2023-04-08 07:34 | OP.EGD_ITS ---
Patient Name: Krista Lopez Procedure Date: 04/08/2023 7:03 AM Date of : 1955 Age: 67 Procedure: Upper GI endoscopy Indications: For therapy of esophageal varices Providers: Toño Curtis DO Medicines: Monitored Anesthesia Care Patient Profile: This is a 67 year old female. Refer to note in patient chart for documentation of history and physical. Patient has symptoms of chronic nausea and chronic vomiting. Complications: No immediate complications. Procedure: Pre-Anesthesia Assessment: - Prior to the procedure, a History and Physical was performed, and patient medications and allergies were reviewed. The risks and benefits of the procedure and the sedation options and risks were discussed with the patient. All questions were answered and informed consent was obtained. Patient identification and proposed procedure were verified by the physician. Mental Status Examination: normal. Prophylactic Antibiotics: The patient does not require prophylactic antibiotics. Prior Anticoagulants: The patient has taken no previous anticoagulant or antiplatelet agents. After reviewing the risks and benefits, the patient was deemed in satisfactory condition to undergo the procedure. The anesthesia plan was to use monitored anesthesia care (MAC). Immediately prior to administration of medications, the patient was re-assessed for adequacy to receive sedatives. The heart rate, respiratory rate, oxygen saturations, blood pressure, adequacy of pulmonary ventilation, and response to care were monitored throughout the procedure. The physical status of the patient was re-assessed after the procedure. After obtaining informed consent, the endoscope was passed under direct vision. Throughout the procedure, the patient's blood pressure, pulse, and oxygen saturations were monitored continuously. The Endoscope was introduced through the mouth, and advanced to the second part of duodenum. The upper GI endoscopy was accomplished without difficulty. The patient tolerated the procedure well. Scope In: 7:13:45 AM Scope Out: 7:24:24 AM Total Procedure Duration Time 0 hours 10 minutes 39 seconds Findings: Grade II varices were found in the middle third of the esophagus and in the lower third of the esophagus. They were 5 mm in largest diameter. Two bands were successfully placed with incomplete eradication of varices. There was no bleeding during, and at the end, of the procedure. A small hiatal hernia was present. Patchy moderately erythematous mucosa with bleeding was found on the lesser curvature of the stomach. Biopsies were taken with a cold forceps for histology. Verification of patient identification for the specimen was done. Estimated blood loss was minimal. Coagulation for hemostasis using heater probe was successful. Estimated blood loss was minimal. A single 5 mm mucosal nodule with a localized distribution was found in the first portion of the duodenum. Biopsies were taken with a cold forceps for histology. Verification of patient identification for the specimen was done. Estimated blood loss was minimal. Impression: - Grade II esophageal varices. Incompletely eradicated. Banded. - Small hiatal hernia. - Erythematous mucosa in the lesser curvature. Biopsied. Treated with a heater probe. - Mucosal nodule found in the duodenum. Biopsied. Recommendation: - Discharge patient to home. - Full liquid diet today. - Continue present medications. Procedure Code(s): --- Professional --- 31093, Esophagogastroduodenoscopy, flexible, transoral; with band ligation of esophageal/gastric varices 88413, 59, Esophagogastroduodenoscopy, flexible, transoral; with control of bleeding, any method 03371, 51, Esophagogastroduodenoscopy, flexible, transoral; with biopsy, single or multiple CPT copyright 2017 [employer]. All rights reserved. The codes documented in this report are preliminary and upon inpatient coder review may be revised to meet current compliance requirements. Toño Curtis DO 04/08/2023 7:34:30 AM This report has been signed electronically. Number of Addenda: 0 Note Initiated On: 04/08/2023 7:03 AM
[2023-04-08 07:35] VITALS: BP 105/75; BP 139/81; PULSE 77; RESP 18; O2SAT 96
--- NOTE | 2023-04-08 07:35 | OP.CCLET_ITS ---
04/08/2023 Rian Julian [address] [place] [address] Re : Upper GI endoscopy procedure for Krista Lopez Dear Dr. Julian This procedure was performed on Saturday, April 08, 2023. My impressions and recommendations are as follows: Impressions : - Grade II esophageal varices. Incompletely eradicated. Banded. - Small hiatal hernia. - Erythematous mucosa in the lesser curvature. Biopsied. Treated with a heater probe. - Mucosal nodule found in the duodenum. Biopsied. Recommendations : - Discharge patient to home. - Full liquid diet today. - Continue present medications. My findings are described in the full procedure note, which is enclosed. If I can be of further assistance, please feel free to contact me at . Sincerely, Toño Curtis, 04/08/2023 7:34:30 AM This report has been signed electronically.
[2023-04-08 07:40] VITALS: BP 105/75; BP 121/72; PULSE 72; RESP 16; O2SAT 95
[2023-04-08 07:45] VITALS: BP 105/75; BP 132/69; PULSE 70; RESP 16; TEMP 36.3; O2SAT 98
[2023-04-08 08:12] VITALS: BP 105/75
== END 2023-04-08 08:31 | disposition home or self-care (01) ==
LOC: EN 05:52 → AC 05:52
PROVIDERS: PCP Family Medicine; Referring Provider Family Medicine; Visit Provider Internal Medicine Gastroenterology
PROC: 0DJ08ZZ Inspection of Upper Intestinal Tract, Via Natural or Artificial Opening Endoscopic (ICD-10-PCS; CPT 43235; principal; 2023-04-08 06:55)
DX: I85.00 Esophageal varices without bleeding (principal); K74.60 Unspecified cirrhosis of liver; E11.9 Type 2 diabetes mellitus without complications; K29.50 Unspecified chronic gastritis without bleeding; K31.89 Other diseases of stomach and duodenum; K44.9 Diaphragmatic hernia without obstruction or gangrene; E66.9 Obesity, unspecified; K21.9 Gastro-esophageal reflux disease without esophagitis; E07.9 Disorder of thyroid, unspecified; I10 Essential (primary) hypertension; Z79.84 Long term (current) use of oral hypoglycemic drugs; Z79.899 Other long term (current) drug therapy; Z87.891 Personal history of nicotine dependence; Z68.33 Body mass index [BMI] 33.0-33.9, adult
CPT/HCPCS: 43239; 43244; 43255; 82962; 88305; 88342; J7120; J2405

== ENCOUNTER → 2023-06-19 | Outpatient (CLI) | payer MEDICARE, BC, SELFPAY ==
[2023-06-19 09:32] LABS: Erythrocyte Sedimentation Rate 16 mm/hr (0-30)
[2023-06-19 09:36] LABS: Absolute Lymphocyte Count 1.47 X10^3/uL (0.83-4.51); Absolute Neutrophil Count 2.6 X10^3/uL (2.0-7.7); Basophil# 0.04 X10^3/uL; Basophil% 0.9 % (0-1); Eosinophil# 0.26 X10^3/uL; Eosinophils% 5.6 % (0-5); Hematocrit 41.2 % (37-47); Lymphocyte # 1.47 X10^3/ul (0.83-4.51); Lymphocyte % 31.5 % (19-41); Mean Corp Hgb Conc 31.6 g/dL (32-36); Mean Corpuscular Volume 95.2 fL (81-99); Mean Platelet Vol. 10.8 fl (6.2-12.0); Monocyte% 6.4 % (0-10); NRBC Flagged by Analyzer 0 % (0-5); Neutrophil # 2.59 X10^3/uL (2.7-7.7); Neutrophil % 55.4 % (47-70); POSITIVE COUNT YES; Platelet Count 60 K/mm3 (150-450); RBC Distribution Width SD 51.9 fl (35.1-43.9); Red Blood Count 4.33 M/mm3 (4.2-5.4); White Blood Count 4.7 K/mm3 (4.4-11.0)
[2023-06-19 10:10] LABS: AST(SGOT) 30 U/L (15-37); Alanine Aminotransfer ALT/SGPT 32 U/L (13-56); Albumin, Serum 3.8 g/dL (3.2-5.0); Alkaline Phosphatase 88 U/L (45-117); Anion Gap 5 (5-15); BUN 13 mg/dL (7-18); BUN/Creat Ratio 18.5 RATIO (10-20); Calcium,Total 8.9 mg/dL (8.5-10.1); Chloride 104 mmol/L (98-107); EST Glomerular Filtration Rate 88 mL/min (>60); Est Glom Filt Rate - Afr Amer 107 mL/min (>60); Globulin 3.7 g/dL (2.2-4.2); Glucose 122 mg/dL (74-106); LDH 165 U/L (84-246); Potassium 3.9 mmol/L (3.5-5.1); Protein, Total 7.5 g/dL (6.4-8.2); Sodium Level 138 mmol/L (136-145)
[2023-06-19 10:11] LABS: Prothrombin Time (Protime)PT. 13.2 SECONDS (11.7-14.9)
== END | disposition home or self-care (01) ==
LOC: LAB 09:09
PROVIDERS: PCP Family Medicine; Referring Provider Internal Medicine Gastroenterology; Visit Provider Internal Medicine Gastroenterology
DX: K74.60 Unspecified cirrhosis of liver (principal)
CPT/HCPCS: 36415; 80053; 82140; 83615; 85025; 85610; 85652; 86140

== ENCOUNTER 2023-08-10 06:05 | Day surgery (SDC) | payer MEDICARE, BC, SELFPAY ==
[2023-08-10 06:20] VITALS: BP 106/68; PULSE 71; RESP 16; TEMP 36.2; O2SAT 98; BMI 33.3
[2023-08-10] MEDS: Lactated Ringers 1,000 ML 15 ML IV (06:29)
[2023-08-10 06:49] LABS: Bedside Glucose 128 mg/dL (74-106)
--- NOTE | 2023-08-10 06:58 | HP.PCM_ITS ---
History and Physical Date of Admission: 08/10/23 JAVON CAMPBELL, is a 67 F who presents to the office today for *[facility] hospitalization 01.18.23-01.21.23 for upper GIB with hematemesis with nausea and weakness. GI consulted 01.19.23. ? CT abd/pel 01.18.23 hepatomegaly with cirrhotic changes; stool throughout colon; enhancing nodule of duodenum [id number]. ? EGD 01.19.23 five columns oozing grade III varices upper/middle/lower esophagus, banded; three bleeding AVM in stomach; one non- bleeding duodenal ulcer. No specimens collected ? MRI 01.21.23 cirrhotic liver with splenomegaly; duodenal enhancement measuring 1.5cm. OV 6.2.23 with acidic stomach for which she has used PPI for 10 years. With lactulose BM daily, loose. reports forgetfulness. Denies sleep disturbance, jaundice, bleeding, pruritis. ? US 6.15.23 without ascites. EGD 04.08.2323 Grade II varices of middle/lower third esophagus, banded; small hiatal hernia; erythema with bleeding on lesser curvature of stomach, gastritis; 5mm mucosal polypoid OV 7.10.23 with improvement of nausea frequency. She did reduce lactulose QD with 2-3 BM/day. Confusion/brain fog has improved per . Notes increased cough with liquids but not consistently. Continues with nadolol and PPI ROS Const Constitutional: Positive for fatigue; No fever(s), frequent falls, headache(s), weakness or weight change ENT ENT: No headache(s) or difficulty swallowing Cardio Cardiology: No leg pain with exertion Gastro GI: Positive for heartburn; No bloating, diarrhea, difficulty swallowing, excessive flatus, Vomiting blood/hematemesis, Blood in stool or vomiting Musc Musculoskeletal: Positive for joint pain, back pain, joint swelling, stiffness and Arthritis; No muscle cramps, muscle weakness, numbness, tingling, sciatica, restless legs, leg pain at night or leg pain with exertion Skin Skin: No dry skin, lesions, itchy eyes or rash Neuro Neurology: No behavioral changes, unsteady gait/balance, weakness, frequent falls, headache(s), numbness, tingling, restless legs, tremor(s), Increased tone in limbs, paralysis or seizures Psych Psychiatric: No anxiety, No behavioral changes, No depression, No paranoia, No Compulsive Behavior, No hyperactivity, No inattentiveness, No obsessions/compulsions, No Temper Tantrums and No suicidal ideation Endo Endocrine: Positive for fatigue; No weight change Aller/Imm Allergy/Immunologic: No itchy eyes Candelario/Lymp Hematologic/Lymphatic: No easy bleeding or easy bruising Exam Const General: cooperative and comfortable Nutritional Appearance: obese Orientation: alert, awake and oriented x3 Eyes Sclera: sclerae normal Resp Effort & Inspection: normal respiratory effort GI Inspection: obesity Skin General: no jaundice Neuro Speech: speech normal Gait: normal gait Extrem General: pedal edema present Psych Mood: euthymic mood Quality Reporting Tobacco Screening ([facility] 138) Smoking Status: Former smoker Assessment and Plan Assessment and Plan (1) Cirrhosis: Status: Chronic Plan: 67-year-old with nonalcoholic steatohepatitis and cirrhosis with a meld of 8/Child-Rosas class a complicated by upper GI bleed secondary to grade 3 through 4 esophageal varices. She underwent esophageal banding with incomplete removal of all her varices. In the hospital she was started on nadolol 10 mg twice daily and was titrated up to 20 mg twice daily. She is not having any side effects from the nadolol. She is on 20 cc a lactulose twice a day and is maintaining good mentation and is not having any signs or symptoms of hepatic encephalopathy. Her disease is also complicated by thrombocytopenia, anemia, ascites, lower extremity edema and itching. She will get MELD labs again today. She will also need alpha-fetoprotein, surveillance upper endoscopy to eradicate all of her varices. She may need a capsule endoscopy in the future. Her hemoglobin has increased from 6.9 all back up to 12 after bleeding was stopped. She is actually doing very well. Continue current medications. (2) Thrombocytopenia: Status: Acute Plan: Last platelet count was 71,000. Her platelet count ranges from 60,00 to 90,000 usually. (3) GI (gastrointestinal bleed): Status: Acute Plan: She has not shown any signs or symptoms of GI bleeding at this time. Orders: Orders Ammonia Today K74.60 - Unspecified cirrhosis of liver Comprehensive Metabolic Profil Today K74.60 - Unspecified cirrhosis of liver LDH Today K74.60 - Unspecified cirrhosis of liver Albumin, Serum Today K74.60 - Unspecified cirrhosis of liver CRP Today K74.60 - Unspecified cirrhosis of liver Prothrombin Time w/INR Today K74.60 - Unspecified cirrhosis of liver, K92.2 - Gastrointestinal hemorrhage, unspecified CBC W/Diff, Automated Today K74.60 - Unspecified cirrhosis of liver, K92.2 - Gastrointestinal hemorrhage, unspecified Erythrocyte Sed Rate Today K74.60 - Unspecified cirrhosis of liver I have examined the patient and the H&P has been reviewed. There are no clinical changes since date of exam.
[2023-08-10 07:16] VITALS: BP 106/68; BP 128/87; PULSE 74; RESP 18; TEMP 35.8; O2SAT 92
--- NOTE | 2023-08-10 07:16 | OP.CCLET_ITS ---
08/10/2023 Rian Julian [address] [place] [address] Re : Upper GI endoscopy procedure for rKista Lopez Dear Dr. Julian This procedure was performed on Thursday, August 10, 2023. My impressions and recommendations are as follows: Impressions : - Grade II esophageal varices. Incompletely eradicated. Banded. - A small amount of food (residue) in the stomach. - Normal duodenal bulb. - No specimens collected. Recommendations : - Discharge patient to home. - Full liquid diet. - Continue present medications. My findings are described in the full procedure note, which is enclosed. If I can be of further assistance, please feel free to contact me at . Sincerely, Toño Curtis, 08/10/2023 7:16:24 AM This report has been signed electronically.
--- NOTE | 2023-08-10 07:16 | OP.EGD_ITS ---
Patient Name: Krista Lopez Procedure Date: 08/10/2023 6:59 AM Date of : 1955 Age: 68 Procedure: Upper GI endoscopy Indications: For therapy of esophageal varices Providers: Toño Curtis DO Referring MD: Rian Julian Medicines: Monitored Anesthesia Care Patient Profile: This is a 68 year old female. Refer to note in patient chart for documentation of history and physical. Patient has symptoms of chronic nausea and chronic vomiting. Complications: No immediate complications. Procedure: Pre-Anesthesia Assessment: - Prior to the procedure, a History and Physical was performed, and patient medications and allergies were reviewed. The risks and benefits of the procedure and the sedation options and risks were discussed with the patient. All questions were answered and informed consent was obtained. Patient identification and proposed procedure were verified by the physician in the pre-procedure area. Mental Status Examination: alert and oriented. Airway Examination: normal oropharyngeal airway and neck mobility. Respiratory Examination: clear to auscultation. CV Examination: normal. Prophylactic Antibiotics: The patient does not require prophylactic antibiotics. Prior Anticoagulants: The patient has taken no anticoagulant or antiplatelet agents. After reviewing the risks and benefits, the patient was deemed in satisfactory condition to undergo the procedure. The anesthesia plan was to use monitored anesthesia care (MAC). Immediately prior to administration of medications, the patient was re-assessed for adequacy to receive sedatives. The heart rate, respiratory rate, oxygen saturations, blood pressure, adequacy of pulmonary ventilation, and response to care were monitored throughout the procedure. The physical status of the patient was re-assessed after the procedure. After obtaining informed consent, the endoscope was passed under direct vision. Throughout the procedure, the patient's blood pressure, pulse, and oxygen saturations were monitored continuously. The Endoscope was introduced through the mouth, and advanced to the second part of duodenum. The upper GI endoscopy was accomplished without difficulty. The patient tolerated the procedure well. Scope In: 7:06:37 AM Scope Out: 7:12:16 AM Total Procedure Duration Time 0 hours 5 minutes 39 seconds Findings: Grade II varices were found in the lower third of the esophagus. They were 5 mm in largest diameter. Two bands were successfully placed with incomplete eradication of varices. There was no bleeding during and at the end of the procedure. A small amount of food (residue) was found in the gastric body. The duodenal bulb was normal. Impression: - Grade II esophageal varices. Incompletely eradicated. Banded. - A small amount of food (residue) in the stomach. - Normal duodenal bulb. - No specimens collected. Recommendation: - Discharge patient to home. - Full liquid diet. - Continue present medications. Procedure Code(s): --- Professional --- 96540, Esophagogastroduodenoscopy, flexible, transoral; with band ligation of esophageal/gastric varices CPT copyright 2021 [employer]. All rights reserved. The codes documented in this report are preliminary and upon data analyst review may be revised to meet current compliance requirements. Toño Curtis DO 08/10/2023 7:16:24 AM This report has been signed electronically. Number of Addenda: 0 Note Initiated On: 08/10/2023 6:59 AM
[2023-08-10 07:19] VITALS: BP 106/68; BP 131/81; PULSE 75; RESP 18; O2SAT 92
[2023-08-10 07:25] VITALS: BP 106/68; BP 133/81; PULSE 67; RESP 14; O2SAT 94
[2023-08-10 07:29] VITALS: BP 106/68; BP 126/81; PULSE 68; RESP 18; TEMP 36.6; O2SAT 94
[2023-08-10 07:51] VITALS: BP 106/68
== END 2023-08-10 08:05 | disposition home or self-care (01) ==
LOC: EN 06:05 → AC 06:06
PROVIDERS: PCP Family Medicine; Referring Provider Family Medicine; Visit Provider Internal Medicine Gastroenterology
PROC: 0DJ08ZZ Inspection of Upper Intestinal Tract, Via Natural or Artificial Opening Endoscopic (ICD-10-PCS; CPT 43235; principal; 2023-08-10 07:10)
DX: I85.00 Esophageal varices without bleeding (principal); K74.60 Unspecified cirrhosis of liver; D69.6 Thrombocytopenia, unspecified; E11.9 Type 2 diabetes mellitus without complications; E66.9 Obesity, unspecified; I10 Essential (primary) hypertension; E07.9 Disorder of thyroid, unspecified; Z87.891 Personal history of nicotine dependence; Z79.84 Long term (current) use of oral hypoglycemic drugs; Z79.899 Other long term (current) drug therapy
CPT/HCPCS: 43244; 82962; J7120; J2405

== ENCOUNTER → 2023-11-24 | Outpatient (CLI) | payer MEDICARE, BC, SELFPAY ==
[2023-11-24 11:29] LABS: Absolute Lymphocyte Count 1.83 X10^3/uL (0.83-4.51); Basophil# 0.06 X10^3/uL; Basophil% 1.1 % (0-1); Eosinophil# 0.23 X10^3/uL; Eosinophils% 4.2 % (0-5); Hemoglobin 12.6 g/dL (12.0-15.0); Lymphocyte # 1.83 X10^3/ul (0.83-4.51); Lymphocyte % 33.6 % (19-41); Mean Corp Hgb Conc 32.3 g/dL (32-36); Mean Corpuscular Hgb 30.4 pg (27.0-32.0); Monocyte# 0.31 X10^3/uL; Monocyte% 5.7 % (0-10); NRBC Flagged by Analyzer 0 % (0-5); Neutrophil # 2.98 X10^3/uL (2.7-7.7); Neutrophil % 54.8 % (47-70); POSITIVE COUNT YES; Platelet Count 80 K/mm3 (150-450); RBC Distribution Width SD 47.8 fl (35.1-43.9); Red Blood Count 4.15 M/mm3 (4.2-5.4); White Blood Count 5.4 K/mm3 (4.4-11.0)
[2023-11-24 11:41] LABS: Prothrombin Time (Protime)PT. 13.6 SECONDS (11.7-14.9)
[2023-11-24 11:55] LABS: ALB/GLOB Ratio 0.9 RATIO (0.9-2.4); AST(SGOT) 35 U/L (15-37); Alanine Aminotransfer ALT/SGPT 43 U/L (13-56); Albumin, Serum 3.7 g/dL (3.2-5.0); Alkaline Phosphatase 109 U/L (45-117); Anion Gap 5 (5-15); BUN 11 mg/dL (7-18); BUN/Creat Ratio 12.8 RATIO (10-20); Calcium,Total 9.1 mg/dL (8.5-10.1); Chloride 104 mmol/L (98-107); Creatinine, Serum 0.86 mg/dL (0.55-1.02); EST Glomerular Filtration Rate 70 mL/min (>60); Est Glom Filt Rate - Afr Amer 84 mL/min (>60); Glucose 193 mg/dL (74-106); Potassium 3.9 mmol/L (3.5-5.1); Protein, Total 7.7 g/dL (6.4-8.2); Sodium Level 136 mmol/L (136-145)
[2023-11-25 04:07] LABS: AFP, Tumor Marker 2.7 ng/mL (0.0-9.2)
== END | disposition home or self-care (01) ==
LOC: LAB 11:02
PROVIDERS: PCP Family Medicine; Referring Provider Internal Medicine; Visit Provider Internal Medicine
DX: K92.2 Gastrointestinal hemorrhage, unspecified (principal); I85.00 Esophageal varices without bleeding; K74.60 Unspecified cirrhosis of liver; D69.6 Thrombocytopenia, unspecified
CPT/HCPCS: 36415; 80053; 82105; 82140; 85025; 85610

== ENCOUNTER → 2023-12-16 | Outpatient (CLI) | payer MEDICARE, BC, SELFPAY ==
--- NOTE | 2023-12-16 12:54 | CT_ITS ---
STUDY: CT ABDOMEN AND PELVIS WITH AND WITHOUT CONTRAST REASON FOR EXAM: Female, 68 years old. Cirrhosis, RUQ abd pain, R/O Cirrhosis -- Triple phase to r/o HCC RADIATION DOSAGE (If Supplied By Facility): CTDIvol = ( 18.12 ) mGy, DLP = ( 1785.49 ) mGycm TECHNIQUE: Transaxial images were obtained from the dome of the diaphragm to the symphysis pubis without oral contrast. IV 100mL Isovue-300 was administered. Sagittal and coronal images were reconstructed. Individualized dose optimization techniques were used for this CT. COMPARISON: Comparison is made with prior study of January 18, 2023. FINDINGS: The visualized lung bases are unremarkable. The visualized portions of the heart are within normal limits. There is decreased attenuation of the liver consistent with steatosis. Hepatomegaly. Normal gallbladder and extrahepatic biliary system. Borderline splenomegaly. Normal pancreas. Normal bilateral adrenal glands. Stable 1 cm cyst in the mid lateral portion of the right kidney. Normal left kidney. Normal visualized stomach. Stable 1.2 cm x 1.4 cm nodular density along the lateral wall of the second portion of the duodenum. There is evidence of a fatty ileocecal valve. Normal colon. The appendix is visualized and appears normal. Normal abdominal aorta. Normal inferior vena cava. There is borderline retroperitoneal lymphadenopathy with enlarged nodes no greater than 10mm in the short axis diameter. Normal urinary bladder. Normal abdominal wall. There are degenerative changes of the visualized lumbar spine. CT/CT Abd/Pelvis W/WO Contrast IMPRESSION: Hepatomegaly and diffuse fatty infiltration of the liver. Stable examination. Electronically Signed: Mao Glez MD at 14:44 EST ,
== END | disposition home or self-care (01) ==
LOC: CT 12:49
PROVIDERS: PCP Family Medicine; Referring Provider Internal Medicine; Visit Provider Internal Medicine
DX: I85.00 Esophageal varices without bleeding (principal); K74.60 Unspecified cirrhosis of liver; D69.6 Thrombocytopenia, unspecified; K92.2 Gastrointestinal hemorrhage, unspecified
CPT/HCPCS: 74178; Q9967

== ENCOUNTER → 2024-02-17 | Outpatient (CLI) | payer MEDICARE, BC, SELFPAY ==
--- NOTE | 2024-02-17 11:50 | NM_ITS ---
CLINICAL: 68 type II diabetic female with history of abdominal pain, dyspepsia. SEMI-SOLID PHASE 99m Tc SULFUR COLLOID GASTRIC EMPTYING STUDY COMPARISON: None available FINDINGS: The patient was administered 1.2 mCi of 99m Tc sulfur colloid mixed with oatmeal and consumed per os. Image acquisitions in the anterior-posterior projections were obtained for 60 minutes. There is prompt visualization of the stomach. There is no gastroesophageal reflux identified. First order kinetics are maintained throughout the duration of the acquisitions. The T ? linear fit was extrapolated to be 102.96 minutes, (Normal: 12-56 minutes). NM/Gastric Emptying Study IMPRESSION: 1. ABNORMAL 99m Tc sulfur colloid semi-solid phase (oatmeal) gastric emptying imaging examination. A. There is delayed semi-solid phase gastric emptying compared to normal controls with maintained first order kinetics throughout all components of the examination. (Leandra et al, J Nucl Med Tech 38: 186, 2010). Electronically Signed: Pierce Godoy DO at 6:45 EDT ,
== END | disposition home or self-care (01) ==
LOC: NM 11:48
PROVIDERS: PCP Family Medicine; Referring Provider Internal Medicine; Visit Provider Internal Medicine
DX: E11.43 Type 2 diabetes mellitus with diabetic autonomic (poly)neuropathy (principal); K74.60 Unspecified cirrhosis of liver; K31.84 Gastroparesis; K92.2 Gastrointestinal hemorrhage, unspecified
CPT/HCPCS: 78264; A9541

== ENCOUNTER → 2024-02-23 | Outpatient (CLI) | payer MEDICARE, BC, SELFPAY ==
[2024-02-23 11:22] LABS: Absolute Lymphocyte Count 1.27 X10^3/uL (0.83-4.51); Absolute Neutrophil Count 2.6 X10^3/uL (2.0-7.7); Basophil# 0.04 X10^3/uL; Basophil% 0.9 % (0-1); Eosinophil# 0.37 X10^3/uL; Eosinophils% 8.1 % (0-5); Hematocrit 38.1 % (37-47); Hemoglobin 11.9 g/dL (12.0-15.0); Lymphocyte # 1.27 X10^3/ul (0.83-4.51); Lymphocyte % 27.7 % (19-41); Mean Corp Hgb Conc 31.2 g/dL (32-36); Mean Corpuscular Hgb 29.7 pg (27.0-32.0); Mean Platelet Vol. 10.8 fl (6.2-12.0); Monocyte# 0.29 X10^3/uL; Monocyte% 6.3 % (0-10); NRBC Flagged by Analyzer 0 % (0-5); Neutrophil # 2.58 X10^3/uL (2.7-7.7); Neutrophil % 56.3 % (47-70); POSITIVE COUNT YES; Platelet Count 90 K/mm3 (150-450); RBC Distribution Width CV 14.1 % (11.6-14.6); RBC Distribution Width SD 49.1 fl (35.1-43.9); Red Blood Count 4.01 M/mm3 (4.2-5.4); White Blood Count 4.6 K/mm3 (4.4-11.0)
[2024-02-23 11:33] LABS: International Normalized Ratio 1.1; Prothrombin Time (Protime)PT. 13.8 SECONDS (11.7-14.9)
[2024-02-23 11:54] LABS: AST(SGOT) 29 U/L (15-37); Alanine Aminotransfer ALT/SGPT 23 U/L (13-56); Albumin, Serum 3.8 g/dL (3.2-5.0); Alkaline Phosphatase 84 U/L (45-117); Anion Gap 6 (5-15); BUN 9 mg/dL (7-18); BUN/Creat Ratio 11.2 RATIO (10-20); Calcium,Total 9.6 mg/dL (8.5-10.1); Chloride 105 mmol/L (98-107); Cholesterol 155 mg/dL (200); EST Glomerular Filtration Rate 75 mL/min (>60); Est Glom Filt Rate - Afr Amer 91 mL/min (>60); Glucose 156 mg/dL (74-106); High Density Lipoprotein 40 mg/dL; Potassium 4.1 mmol/L (3.5-5.1); Protein, Total 7.8 g/dL (6.4-8.2); Sodium Level 138 mmol/L (136-145); Triglycerides 181 mg/dL; Very Low Density Lipoprotein 36 mg/dL (5-40)
[2024-02-23 12:39] LABS: Hemoglobin A1c 5.9 % (3.8-5.6)
== END | disposition home or self-care (01) ==
LOC: LAB 11:03
PROVIDERS: PCP Family Medicine; Referring Provider Internal Medicine; Visit Provider Internal Medicine
DX: K74.60 Unspecified cirrhosis of liver (principal); E11.43 Type 2 diabetes mellitus with diabetic autonomic (poly)neuropathy; K92.2 Gastrointestinal hemorrhage, unspecified; K31.84 Gastroparesis
CPT/HCPCS: 36415; 80053; 80061; 82140; 83036; 85025; 85610; 86140

== ENCOUNTER → 2024-03-07 | Outpatient (CLI) | payer MEDICARE, BC, SELFPAY ==
--- NOTE | 2024-03-07 09:50 | RAD_ITS ---
EXAM: XR LEFT RIBS AND AP CHEST, 3 OR MORE VIEWS CLINICAL INDICATION: rib fracture, left lower ribs TECHNIQUE: Frontal and oblique views of the left ribs and frontal view of the chest. COMPARISON: No relevant prior studies available. FINDINGS: LUNGS AND PLEURAL SPACES: Normal. No consolidation or edema. No pneumothorax. No effusion. HEART: Normal. Normal heart size. MEDIASTINUM: No mediastinal or hilar mass. BONES/JOINTS: No acute abnormality. RAD/Ribs Uni Min 3V w/PA Chest IMPRESSION: Normal chest and left ribs series. Electronically Signed: Lloyd Hackett MD at 10:12 EDT ,
== END | disposition home or self-care (01) ==
LOC: RAD 09:47
PROVIDERS: PCP Family Medicine; Referring Provider Internal Medicine; Visit Provider Internal Medicine
DX: S22.39XA Fracture of one rib, unspecified side, initial encounter for closed fracture (principal)
CPT/HCPCS: 71101

== ENCOUNTER → 2024-06-07 | Outpatient (CLI) | payer MEDICARE, BC, SELFPAY ==
[2024-06-07 10:41] LABS: Prothrombin Time (Protime)PT. 13.5 SECONDS (11.7-14.9)
[2024-06-07 10:44] LABS: Absolute Lymphocyte Count 1.23 X10^3/uL (0.83-4.51); Basophil# 0.04 X10^3/uL; Basophil% 0.8 % (0-1); Eosinophil# 0.34 X10^3/uL; Eosinophils% 6.8 % (0-5); Hematocrit 34.8 % (37-47); Hemoglobin 10.6 g/dL (12.0-15.0); Lymphocyte # 1.23 X10^3/ul (0.83-4.51); Lymphocyte % 24.7 % (19-41); Mean Corp Hgb Conc 30.5 g/dL (32-36); Mean Corpuscular Hgb 28.6 pg (27.0-32.0); Mean Corpuscular Volume 93.8 fL (81-99); Mean Platelet Vol. 10.7 fl (6.2-12.0); Monocyte# 0.32 X10^3/uL; Monocyte% 6.4 % (0-10); NRBC Flagged by Analyzer 0 % (0-5); Neutrophil # 3.03 X10^3/uL (2.7-7.7); Neutrophil % 60.9 % (47-70); POSITIVE COUNT YES; Platelet Count 78 K/mm3 (150-450); RBC Distribution Width CV 16.3 % (11.6-14.6); Red Blood Count 3.71 M/mm3 (4.2-5.4)
[2024-06-07 11:36] LABS: ALB/GLOB Ratio 0.9 RATIO (0.9-2.4); AST(SGOT) 29 U/L (15-37); Alanine Aminotransfer ALT/SGPT 25 U/L (13-56); Albumin, Serum 3.5 g/dL (3.2-5.0); Alkaline Phosphatase 91 U/L (45-117); Anion Gap 9 (5-15); BUN 11 mg/dL (7-18); BUN/Creat Ratio 16.2 RATIO (10-20); Calcium,Total 9.9 mg/dL (8.5-10.1); Chloride 106 mmol/L (98-107); Creatinine, Serum 0.68 mg/dL (0.55-1.02); EST Glomerular Filtration Rate 92 mL/min (>60); Est Glom Filt Rate - Afr Amer 111 mL/min (>60); Ferritin 16 ng/mL (8-252); Glucose 136 mg/dL (74-106); Iron 34 ug/dL (50-170); Iron Binding Capacity,Total 416 ug/dL (250-450); PERCENT IRON SATURATION 8.2 % (15.0-55.0); Potassium 4.1 mmol/L (3.5-5.1); Protein, Total 7.5 g/dL (6.4-8.2); Sodium Level 139 mmol/L (136-145)
[2024-06-08 08:12] LABS: AFP, Tumor Marker 2.7 ng/mL (0.0-9.2)
== END | disposition home or self-care (01) ==
LOC: LAB 09:59
PROVIDERS: PCP Family Medicine; Referring Provider Internal Medicine; Visit Provider Internal Medicine
DX: K74.60 Unspecified cirrhosis of liver (principal); I85.10 Secondary esophageal varices without bleeding; D69.6 Thrombocytopenia, unspecified; K92.2 Gastrointestinal hemorrhage, unspecified
CPT/HCPCS: 36415; 80053; 82105; 82728; 83540; 83550; 85025; 85610; 86140

== ENCOUNTER 2024-07-06 09:10 | Day surgery (SDC) | payer MEDICARE, BC, SELFPAY ==
--- NOTE | 2024-07-06 | IMM_PTH ---
PATIENT: JAVON CAMPBELL LOC: EN U#:[id number] AGE/SX: 69/F ROOM: RE07/06/[address]: Dr. Toño Curtis DO : 1955 BED: DIS: 07/06/2024 SPEC #: [id number] RECD: 07/07/24 11:16 STATUS: SADAF REQ #: [id number] ABRAHAM: 07/06/24 00:[address]: Toño Curtis DEPT: IMMUNOHISTOCHEMISTRY RECD BY: Guillermo Felix ENTERED: 07/07/24 11:17 SP TYPE: IMMUNO OTHR DR: Dr. Rian Julian MD Tissues: Stomach, NOS Procedures: H Pylori (initial) PHYSICIAN & INSTITUTION [place] [id number] SPECIMEN INFORMATION: Tissue Source: Lesser curvature ulcer biopsy Clinical Info: Cirrhosis Specimen Number: [id number] CPT code: 21998 METHODOLOGY: Deparaffinized sections of prefer/formalin-fixed tissue or PAP/DQ stained slides are incubated with monoclonal/polyclonal antibodies/oligonucleotide probes. Localization is made via biotin free immunoperoxidase method. Appropriate controls are performed and reacted as expected. Results on target cell population are indicated in the following table: RESULTS: ANTIBODY / CLONE RESULT H Pylori (polyclonal) negative These tests were developed and their performance characteristics determined by [facility]. They may not have been cleared or approved by the [place]. Food and Drug Administration. The FDA has determined that such clearance or approval is not necessary. The above immunohistochemical/dualISH markers are ordered and reviewed by the Pathologist. INTERPRETATION: Stomach, lesser curvature ulcer, biopsy: Negative for Helicobacter pylori organisms. 07/08/2024
--- NOTE | 2024-07-06 09:41 | PRE.ANES_ITS ---
ASA Classification* ASA Classification ASA Classification: 3 Assessment & Plan Anesthesia* Anesthesia Assessment Anesthesia Assessment: Discussed sedation and/or anesthesia options, risks, benefits, and alternatives with patient/parents/legal guardian/POA. Questions invited. The patient/parents/legal guardian/POA seems to understand and agrees to proceed with anesthesia plan. Reviewed the physical assessment, medical history, allergy history and patient home medications list prior to surgery/procedure/anesthetic and documented any changes. Performed airway and anesthesia risk assessments. Anesthesia Type Anesthesia Type: MAC Anesthesia Focused Assessment* Airway Assessment Mouth opens: >3 cm Mallampati Score: II Focused Labs Anesthesia Preop lab: CBC WBC 5.0 K/mm3 (4.4-11.0) 06/07/24 10:11 RBC 3.71 M/mm3 (4.2-5.4) L 06/07/24 10:11 Hgb 10.6 g/dL (12.0-15.0) L 06/07/24 10:11 Hct 34.8 % (37-47) L 06/07/24 10:11 Plt Count 78 K/mm3 (150-450) L 06/07/24 10:11 CHEMISTRY Potassium 4.1 mmol/L (3.5-5.1) 06/07/24 10:11 Sodium 139 mmol/L (136-145) 06/07/24 10:11 Magnesium 2.0 mg/dL (1.6-2.6) 01/19/23 05:35 BUN 11 mg/dL (7-18) 06/07/24 10:11 Creatinine 0.68 mg/dL (0.55-1.02) 06/07/24 10:11 Glucose 136 mg/dL (74-106) H 06/07/24 10:11 POC Glucose 128 mg/dL (74-106) H 08/10/23 06:24 TSH 2.39 uIU/mL (0.358-3.74) 04/19/20 07:25 COAG PT 13.5 SECONDS (11.7-14.9) 06/07/24 10:11 Pre-Assessment Diagnosis/Proposed Procedure Planned Operative Procedure(s): EGD Anesthesia History 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 When Was Last Pacemaker Check QUESTION #4 FULL TEXT: You/Your Family Experience fever (hyperthermia) with Anesthesia Last Oral Intake Last Oral intake: Last Oral Intake NPO since Meds taken in AM with sips of water? Meds patient instructed to take am of surgery PONV PONV - pharmaceutical engineer: PONV - pharmaceutical engineer Female Yes 07/04/24 15:07 HX of Motion Sickness No 07/04/24 15:07 HX of N/V After Surgery No 07/04/24 15:07 Non-Smoker Yes 07/04/24 15:07 Duration of Surgery greater No 07/04/24 15:07 than 60 minutes Number of Risk Factors 2 07/04/24 15:07 PONV Score Moderate Risk 07/04/24 15:07 Height & Weight Height & Weight: Anesthesia: Height & Weight Height 4 ft 11 in 03/07/24 08:51 Respiratory Assessment Respiratory Assessment - pharmaceutical engineer: Respiratory Tract Infection Hx - pharmaceutical engineer Hx Respiratory Tract Infection No 07/04/24 15:07 STOP Sleep Apnea STOP Sleep Apnea - pharmaceutical engineer: STOP Sleep Apnea - pharmaceutical engineer Hx Hypertension No: PT ON NADOLOL PER DR 07/04/24 15:07 MARLO FOR ESOPHAGUS Hx Sleep Apnea No 07/04/24 15:07 CPAP BIPAP Do you snore loudly (louder No 07/04/24 15:07 than talking or can be heard Do you often feel tired/ No 07/04/24 15:07 fatigued/ sleepy during daytime? Has anyone observed you stop No 07/04/24 15:07 breathing during sleep? STOP Results Negative 07/04/24 15:07 QUESTION #5 FULL TEXT : Do you snore loudly (louder than talking or can be heard through closed doors)? 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 Specify any problems Hx of Preganancy in last 3 No 07/04/24 15:07 Months Nurse Filling Out Transfusion [id number] 07/04/24 15:07 & Questions: Date: 07/04/24 07/04/24 15:07 Time: 15:12 07/04/24 15:07 Patient unable to answer at this time (ie. confused, unrespo /Reproduction History /Reproductive History - pharmaceutical engineer: /Reproductive Hx- pharmaceutical engineer Hx Now Gestational Age (in weeks): EDC: Hx Hx Para Hx Section SAB Active Medications Active Medications: Current Medications Generic Name Dose Route Start Last Admin Trade Name Freq PRN Reason Stop Dose Admin Lactated Ringer's 1,000 mls @ 15 mls/hr 07/06/24 09:30 IV .Q48H WESLEY PFSH Medical History Back pain Wears glasses History of steroid therapy Thyroid disease Gout Arthritis Anemia High cholesterol History of GI bleed History of diverticulitis Gastric reflux Former smoker History of edema History of echocardiogram History of stress test Hypertension Diabetes Migraines Home Medications ?Medication ?Instructions ?Recorded ?Last Taken ?Type rizatriptan 10 mg tablet 10 mg PO PRN PRN Migraine Headache 12/28/13 Unknown History Lactobacillus acidophilus 10 mg PO DAILY Check with primary 01/18/23 Unknown History (Acidophilus capsule) doctor allopurinol 100 mg tablet 100 mg PO DAILY Check with primary 01/18/23 Unknown History doctor apple cider vinegar 300 mg tablet 300 mg PO DAILY health maintence 01/18/23 Unknown History coenzyme Q10 200 mg capsule (Co 200 mg PO DAILY Check with primary 01/18/23 Unknown History Q-10) doctor cranberry 500 mg capsule 500 mg PO DAILY Check with primary 01/18/23 Unknown History doctor cyclosporine 0.05 % eye drops in a 1 drp ophthalmic (eye) BID health 01/18/23 Unknown History dropperette (Restasis) maintenance dulaglutide 3 mg/0.5 mL 3 mg subcut QWEEK Check with 01/18/23 06/30/24 History subcutaneous pen injector primary doctor (Trulicity) erythromycin 5 mg/gram (0.5 %) eye 1 applic ophthalmic (eye) QHS 01/18/23 Unknown History ointment health maintenance ezetimibe 10 mg tablet 10 mg PO DAILY Check with primary 01/18/23 Unknown History doctor fexofenadine 180 mg tablet 180 mg PO DAILY Check with primary 01/18/23 Unknown History doctor fluorometholone 0.1 % eye 1 drp ophthalmic (eye) BID health 01/18/23 Unknown History drops,suspension maintenance gabapentin 400 mg tablet 800 mg PO QHS health maintenance 01/18/23 Unknown History galcanezumab-gnlm 120 mg/mL 120 mg subcut QMONTH Check with 01/18/23 Unknown History subcutaneous pen injector primary doctor (Emgality Pen) metformin 1,000 mg tablet 1,000 mg PO BID diabetic 01/18/23 Unknown History multivitamin with minerals 2 tab PO DAILY Check with primary 01/18/23 Unknown History (Hair,Skin and Nails tablet) doctor cqdocftggxij-Ch-yfys-minerals 18 2 tab PO DAILY health maintenance 01/18/23 Unknown History mg-0.4 mg tablet vit C 250 mg-vit E 90 mg-zinc 40 1 tab PO BID Check with primary 01/18/23 Unknown History mg-copper 1 ag-qpcerw-tkvwnf doctor capsule (PreserVision AREDS-2) vitamin C 30 mg-zinc citrate 1.1 1 tab PO DAILY Check with primary 01/18/23 Unknown History mg-elderberry 25 mg chewable doctor tablet (Sambucus Elderberry) ferrous sulfate 325 mg (65 mg 325 mg PO DAILY 1 month #30 tabs 03/07/24 Unknown Rx iron) tablet lactulose 20 gram/30 mL oral 10 g (15 mL) PO TID 1 month #6,000 03/07/24 Unknown Rx solution mL nadolol 40 mg tablet 40 mg PO DAILY 90 days #90 tabs 03/07/24 Unknown Rx rifaximin 550 mg tablet (Xifaxan) 550 mg PO BID 30 days #60 tabs 03/07/24 Unknown Rx spironolactone 25 mg tablet 12.5 mg (1/2 x 25 mg) PO DAILY #30 03/15/24 Unknown Rx tabs levothyroxine 88 mcg tablet 88 mcg PO DAILY 07/04/24 Unknown History magnesium 200 mg tablet 200 mg PO DAILY Check with primary 07/04/24 Unknown History doctor pantoprazole 40 mg tablet,delayed 40 mg PO BID 07/04/24 Unknown History release Allergy/AdvReac Type Severity Reaction Status Date / Time ciprofloxacin (From Cipro) Allergy Other Verified 07/04/24 15:01 ciprofloxacin HCl (From Allergy Other Verified 07/04/24 15:01 Cipro) metronidazole Allergy Other Verified 07/04/24 15:01 Penicillins (PCN) Allergy Other Verified 07/04/24 15:01 Sulfa (Sulfonamide Allergy Rash Verified 07/04/24 15:01 Antibiotics) Wlooiso-VQZ-LzA Reductase AdvReac Other Verified 07/04/24 15:01 Inhibitor Family History Grandfather Diabetes Grandmother Diabetes Father Heart problem Mother CVA (cerebral vascular accident) Surgical History History of esophagogastroduodenoscopy (EGD) Hx of esophagogastroduodenoscopy Hx of tonsillectomy History of Status post left foot surgery Social History Smoking Status: Former smoker Review of Systems (Anesthesia) ROS Narrative System reviewed and no additional complaints, except as documented.
[2024-07-06 09:49] VITALS: BP 122/75; PULSE 75; RESP 18; TEMP 36.1; O2SAT 98; BMI 31.1
[2024-07-06] MEDS: Lactated Ringers 1,000 ML 15 ML IV (09:57)
--- NOTE | 2024-07-06 10:15 | EGD_PTH ---
PATIENT: JAVON CAMPBELL LOC: EN U#:[id number] AGE/SX: 69/F ROOM: RE07/06/[address]: Dr. Toño Curtis DO : 1955 BED: DIS: 07/06/2024 SPEC #: [id number] RECD: 07/06/24 12:45 STATUS: SADAF REKeyur #: [id number] ABRAHAM: 07/06/24 10:[address]: Toño Curtis DEPT: SURGICAL PATHOLOGY RECD BY: Lina Henao ENTERED: 07/06/24 14:20 SP TYPE: EGD BIOPSY OT DR: Dr. Rian Julian MD Tissues: Stomach, NOS Procedures: Surgery Specimen Level IV HEADER OPERATION: EGD with biopsy and esophageal banding PRE-OP DIAGNOSIS: Cirrhosis TISSUE SUBMITTED: Lesser curvature ulcer biopsy MICROSCOPIC DIAGNOSIS Lesser curvature ulcer, biopsy: Chronic gastritis with mucosal denudation. AM.mr 07/07/2024 COMMENT The results of immunohistochemistry for Helicobacter pylori will be reported separately ([id number]). MICROSCOPIC DESCRIPTION Slides are reviewed. GROSS DESCRIPTION Received in fixative is one container labeled with the patient's name and designated Lesser curvature ulcer biopsy. The specimen consists of one irregular fragment of light allen soft tissue that measures 0.4 x 0.4 x 0.1 cm. The specimen is totally submitted in one cassette. 07/06/2024 TC:3 CPT:16182
[2024-07-06 10:16] LABS: Bedside Glucose 138 mg/dL (74-106)
--- NOTE | 2024-07-06 10:28 | HP.PCM_ITS ---
History and Physical Date of Admission: 07/06/24 Chief Complaint: Follow up, Cirrhosis Details: JAVON CAMPBELL, is a 68 F who presents to the office today for follow up. *[facility] hospitalization 01.18.23-01.21.23 for upper GIB with hematemesis with nausea and weakness. GI consulted 01.19.23. CT abd/pel 01.18.23 hepatomegaly with cirrhotic changes; stool throughout colon; enhancing nodule of duodenum [id number]. EGD 01.19.23 five columns oozing grade III varices upper/middle/lower esophagus, banded; three bleeding AVM in stomach; one non- bleeding duodenal ulcer. No specimens collected MRI 01.21.23 cirrhotic liver with splenomegaly; duodenal enhancement measuring 1.5cm. OV 6.. with acidic stomach for which she has used PPI for 10 years. With lactulose BM daily, loose. reports forgetfulness. Denies sleep disturbance, jaundice, bleeding, pruritis. US 6..23 without ascites. EGD 04.08.2323 Grade II varices of middle/lower third esophagus, banded; small hiatal hernia; erythema with bleeding on lesser curvature of stomach, gastritis; 5mm mucosal polypoid OV 7.10.23 with improvement of nausea frequency. She did reduce lactulose QD with 2-3 BM/day. Confusion/brain fog has improved per . Notes increased cough with liquids but not consistently. Continues with nadolol and PPI EGD 08.10.23- Grade II esophageal varices, incompletely eradicated. Banded; small amount of food in stomach. No specimines collected. OV 11.27.23- Pt is doing well since last visit. Reports intermittent postprandial RUQ pain and nausea. Takes Lactulose QD with 2-3 complete BM a day. Denied any edema, confusion/ brain fog or issues with sleep. Continues PPI with minimal heartburn. MELD Na score is 8. C/o mild upper quadrant abdominal pain adjacent with the food on lactulose but lactulose makes her more nauseous but no vomiting, burping and gaseous feeling. OV 2.14.24- Nausea, indigestion, and upper mid to LUQ abdomen abdominal pain after eating certain foods in the evening, attempting keep away from triggers. She states that food stays longer with burping and air/gas. Occasional Tums PRN with success. Nausea after taking lactulose improved. Loose stool about once daily. She takes lactulose 30 mL once daily. Mild swelling in feet. Gabapentin prescribed by neurologist effective sleep aide. Denies confusion, brain fog and BLE edema. Received correspondence from medical insurance prior auth needed Xifaxan through [facility]. CT abd/pel w/wo 12.16.23- Hepatomegaly and diffuse fatty infiltration of the liver Gastric emptying study .11.11- Abnormal, 102.96 mins 5.7.24 MELD na- 7 OV 5.20.24- Pt well since last visit. Continues to have nausea and RUQ abdominal discomfort/pressure like fist pressing. States she takes Lactulose once a day and BM are normal. She was able to get the Xifaxan. Denies dizziness, weakness, confusion, and swelling. ROS Const Constitutional: Positive for fatigue and weight change; No fever(s) ENT ENT: Positive for difficulty swallowing Gastro GI: Positive for abdominal pain, heartburn and difficulty swallowing; No belching, bloating, change in bowel habits, change in stool character, coffee ground emesis, constipation, cramping, diarrhea, feeling full early, excessive flatus, incontinent of stools, Vomiting blood/hematemesis, Blood in stool, loose stools, Black,tarry stools, nausea/dyspepsia, pain with swallowing, vomiting or other Musc Musculoskeletal: Positive for joint pain, back pain, stiffness, Arthritis and sciatica Skin Skin: No yellowing of the eye or itchy eyes Psych Psychiatric: No anxiety and No depression Endo Endocrine: Positive for fatigue and weight change Aller/Imm Allergy/Immunologic: No itchy eyes Candelario/Lymp Hematologic/Lymphatic: No easy bleeding or easy bruising Exam Const General: cooperative, no acute distress and well developed Nutritional Appearance: obese Orientation: alert, awake and oriented x3 [facility] Head: normocephalic and atraumatic Nose: external nose normal Face and sinus: normal facial exam Mouth: moist mucous membranes Eyes Pupils: PERRL EOM: EOM intact bilaterally Neck Neck: normal visual inspection, no meningeal signs and trachea midline Carotids: no bruits Chest Chest palpation & inspection: normal inspection of the chest Resp Effort & Inspection: normal respiratory effort and symmetric chest movement Auscultation: Bilateral: Clear to Auscultation Other: Left-sided lower anterolateral rib tenderness. Patient stated she had popping of the ribs probably due to fracture Cardio Palpation: normal PMI Rate: regular rate Rhythm: regular rhythm Heart Sounds: S1 normal and S2 normal GI Auscultation: normal bowel sounds Percussion: normal to percussion Palpation: soft and no guarding Other: No shifting dullness. Clinical ascites not palpable liver not enlarged. Spleen not palpable General: bimanual renal exam normal bilaterally, bladder normal to inspection and bladder normal to palpation Bimanual Exam- Vagina & Uterus: bladder normal to palpation Musc Musculoskeletal: No joint tenderness, joint redness, joint warmth or decreased range of motion Thoracic/Lumbar Spine: thor and lumb spine abnorm to inspection Other: No pedal edema. Skin General: rashes and/or lesions noted, turgor normal and no erythema Wounds: wound noted Neuro General: patient alert, patient awake, patient oriented x3 and no focal motor deficits Speech: speech normal Motor: muscle tone normal throughout Extrem General: normal exam except as noted Psych Appearance: grossly normal Mood: congruent mood Affect: normal affect Attitude: cooperative Assessment and Plan Assessment and Plan (1) Cirrhosis: Status: Chronic Plan: 67-year-old with nonalcoholic steatohepatitis and cirrhosis with MELD Na 7 Child-Rosas class A decompensated by variceal bleed, grade 3 to grade 4, had recent esophageal variceal banding in July 2023 Last EGD 08/10/2023: Grade 2 esophageal varices incompletely eradicated banded. Normal duodenal bulb. Patient is on nadolol 20 mg twice daily. She has symptoms of nausea, dyspeptic symptoms, burping and gas and fluid status longer time. She takes lactulose 30 mill once daily. Labs reviewed. Last CT abdomen, triple phase and MRI abdomen/pelvis from January 2023 were reviewed. Cirrhotic changes but no specific mass reported. Labs reviewed. Alpha-fetoprotein normal. Chronic thrombocytopenia. A1c 5.9%. Glucose 156. She is on medications for diabetes. Ascites and leg edema are controlled on spironolactone serum potassium is normal. Continue taking spironolactone 12.5 mg once daily. Labs before next visit ordered. She is due for EGD for variceal surveillance in June or July 2023. Prescription for all medications from liver clinic ordered Follow-up in 4 months after EGD (2) Esophageal varices: Status: Chronic Qualifiers: Esophageal varices type: secondary Esophageal varices bleeding: without bleeding Qualified Code(s): I85.10 - Secondary esophageal varices without bleeding Plan: No GI bleed recent. She was last admitted in January 2023 for GI bleed. On nadolol (3) Gastroparesis: Status: Chronic Plan: Gastric emptying study was done for mild abdominal discomfort and dyspepsia. Patient still had mild right upper quadrant discomfort. Gastric emptying study shows abnormal with delayed semisolid phase gastric emptying compared to the normal controls maintained first-order kinetics throughout all components of exam. Currently patient does not have much symptoms of burping, belching, loss of appetite, early satiety or sensation of gastric fullness therefore will not start metoclopramide because of high side effect profile. Advised to control lactulose dosing to have a goal of 1 bowel movement per per day. Patient does not have symptoms of hepatic encephalopathy. Patient also had left rib pop up therefore x-ray of left ribs ordered. Dkgp-fjw-trojntj incentive spirometry or check with PCP for prescription. Orders: Orders Ribs Uni Min 3V w/PA Chest Today S22.39XA - Fracture of one rib, unspecified side, initial encounter for closed fracture Comprehensive Metabolic Profil 4 Months D69.6 - Thrombocytopenia, unspecified, I85.10 - Secondary esophageal varices without bleeding, K74.60 - Unspecified cirrhosis of liver, K92.2 - Gastrointestinal hemorrhage, unspecified Prothrombin Time w/INR 4 Months D69.6 - Thrombocytopenia, unspecified, I85.10 - Secondary esophageal varices without bleeding, K74.60 - Unspecified cirrhosis of liver, K92.2 - Gastrointestinal hemorrhage, unspecified AFP, Tumor Marker 4 Months D69.6 - Thrombocytopenia, unspecified, I85.10 - Secondary esophageal varices without bleeding, K74.60 - Unspecified cirrhosis of liver, K92.2 - Gastrointestinal hemorrhage, unspecified CBC W/Diff, Automated 4 Months D69.6 - Thrombocytopenia, unspecified, I85.10 - Secondary esophageal varices without bleeding, K74.60 - Unspecified cirrhosis of liver, K92.2 - Gastrointestinal hemorrhage, unspecified CRP 4 Months D69.6 - Thrombocytopenia, unspecified, I85.10 - Secondary esophageal varices without bleeding, K74.60 - Unspecified cirrhosis of liver, K92.2 - Gastrointestinal hemorrhage, unspecified Iron+Iron Binding Capacity 4 Months D69.6 - Thrombocytopenia, unspecified, I85. 10 - Secondary esophageal varices without bleeding, K74.60 - Unspecified cirrhosis of liver, K92.2 - Gastrointestinal hemorrhage, unspecified Ferritin 4 Months D69.6 - Thrombocytopenia, unspecified, I85.10 - Secondary esophageal varices without bleeding, K74.60 - Unspecified cirrhosis of liver, K92.2 - Gastrointestinal hemorrhage, unspecified Medications: Changed From ferrous sulfate 325 mg PO DAILY To ferrous sulfate 325 mg PO DAILY 1 month 30 tabs 4RF From lactulose Goal is to have 2-3 soft BM/day. 10 grams (15 mL) PO TID 3,000 mL 6RF To lactulose Goal is to have 2-3 soft BM/day. 10 grams (15 mL) PO TID 1 month 6,000 mL 6RF From magnesium 500 mg PO DAILY Check with primary doctor To magnesium 500 mg (2.5 x 200 mg) PO DAILY 1 month 75 tabs 4RF Check with primary doctor From pantoprazole 40 mg PO BID 180 tabs 0RF To pantoprazole 40 mg PO DAILY 90 days 90 tabs 2RF Refilled nadolol Hold for heart less than 50 or systolic blood pressure less than 100 mmHg. 40 mg PO DAILY 90 days 90 tabs 6RF rifaximin (Xifaxan) 550 mg PO BID 30 days 60 tabs 6RF spironolactone Hold if serum potassium is more than 5.0. 12.5 mg (1/2 x 25 mg) PO DAILY 30 tabs 7RF I have examined the patient and the H&P has been reviewed. There are no clinical changes since date of exam.
[2024-07-06 10:57] VITALS: BP 122/75; BP 126/78; PULSE 81; RESP 16; TEMP 36.8; O2SAT 94
[2024-07-06 11:00] VITALS: BP 121/77; BP 122/75; BP 126/78; PULSE 80; PULSE 82; RESP 16; TEMP 36.8; O2SAT 93; O2SAT 94
--- NOTE | 2024-07-06 11:00 | OP.EGD_ITS ---
Patient Name: Krista Lopez Procedure Date: 07/06/2024 10:35 AM Date of : 1955 Age: 69 Procedure: Upper GI endoscopy Indications: For therapy of esophageal varices Providers: Toño Curtis DO Referring MD: Toño Curtis DO Medicines: Monitored Anesthesia Care Patient Profile: This is a 69 year old female. Refer to note in patient chart for documentation of history and physical. Complications: No immediate complications. Procedure: Pre-Anesthesia Assessment: - Prior to the procedure, a History and Physical was performed, and patient medications and allergies were reviewed. The patient is competent. The risks and benefits of the procedure and the sedation options and risks were discussed with the patient. All questions were answered and informed consent was obtained. Patient identification and proposed procedure were verified by the physician in the pre-procedure area. Mental Status Examination: alert and oriented. Airway Examination: normal oropharyngeal airway and neck mobility. Respiratory Examination: clear to auscultation. CV Examination: normal. Prophylactic Antibiotics: The patient does not require prophylactic antibiotics. Prior Anticoagulants: The patient has taken no anticoagulant or antiplatelet agents except for NSAID medication. ASA Grade Assessment: III - A patient with severe systemic disease. After reviewing the risks and benefits, the patient was deemed in satisfactory condition to undergo the procedure. The anesthesia plan was to use monitored anesthesia care (MAC). Immediately prior to administration of medications, the patient was re-assessed for adequacy to receive sedatives. The heart rate, respiratory rate, oxygen saturations, blood pressure, adequacy of pulmonary ventilation, and response to care were monitored throughout the procedure. The physical status of the patient was re-assessed after the procedure. After obtaining informed consent, the endoscope was passed under direct vision. Throughout the procedure, the patient's blood pressure, pulse, and oxygen saturations were monitored continuously. The Endoscope was introduced through the mouth, and advanced to the second part of duodenum. The upper GI endoscopy was accomplished without difficulty. The patient tolerated the procedure well. Scope In: 10:43:22 AM Scope Out: 10:53:55 AM Total Procedure Duration Time 0 hours 10 minutes 33 seconds Findings: Grade II varices were found in the entire esophagus. They were 8 mm in largest diameter. Three bands were successfully placed with complete eradication, resulting in deflation of varices. Bleeding had stopped at the end of the procedure. One non-bleeding linear gastric ulcer with no stigmata of bleeding was found on the lesser curvature of the stomach. The lesion was 6 mm in largest dimension. Biopsies were taken with a cold forceps for histology. Verification of patient identification for the specimen was done. Biopsies were taken with a cold forceps for Helicobacter pylori testing. Verification of patient identification for the specimen was done. Estimated blood loss was minimal. Moderate portal hypertensive gastropathy was found in the cardia, in the gastric fundus and in the gastric body. No gross lesions were noted in the first portion of the duodenum. Impression: - Grade II esophageal varices. Completely eradicated. Banded. - Non-bleeding gastric ulcer with no stigmata of bleeding. Biopsied. - Portal hypertensive gastropathy. - No gross lesions in the first portion of the duodenum. Recommendation: - Discharge patient to home. - Full liquid diet today. - Continue present medications. - Await pathology results. - Repeat upper endoscopy in 3 months for surveillance. Procedure Code(s): --- Professional --- 18822, Esophagogastroduodenoscopy, flexible, transoral; with band ligation of esophageal/gastric varices 22494, Esophagogastroduodenoscopy, flexible, transoral; with biopsy, single or multiple CPT copyright 2021 [employer]. All rights reserved. The codes documented in this report are preliminary and upon reservations sales supervisor review may be revised to meet current compliance requirements. Toño Curtis DO 07/06/2024 11:00:35 AM This report has been signed electronically. Number of Addenda: 0 Note Initiated On: 07/06/2024 10:35 AM
--- NOTE | 2024-07-06 11:00 | PCM.POST.ANE ---
Anesthesia: Postop Eval I Current Vital Signs Temperature: 98.3 F Pulse Rate: 82 Blood Pressure: 126/78 Respiratory Rate: 16 Pulse Ox: 94 Oxygen Delivery Method: Room Air Assessment Airway patent: Yes Spontaneous unlabored respirations: Yes Mental status: Asleep nausea: No Vomiting: No Anesthesia Complication: No Fluid Hydration Crystalloid volume administer (ml): 400 Total IV fluid infused: 400 Progress Note Anesthesia document: Postop Eval 1 completed: Yes
--- NOTE | 2024-07-06 11:01 | OP.CCLET_ITS ---
07/06/2024 Rian Julian [address] [place] [address] Re : Upper GI endoscopy procedure for Krista Lopez Dear Dr. Julian This procedure was performed on Saturday, July 06, 2024. My impressions and recommendations are as follows: Impressions : - Grade II esophageal varices. Completely eradicated. Banded. - Non-bleeding gastric ulcer with no stigmata of bleeding. Biopsied. - Portal hypertensive gastropathy. - No gross lesions in the first portion of the duodenum. Recommendations : - Discharge patient to home. - Full liquid diet today. - Continue present medications. - Await pathology results. - Repeat upper endoscopy in 3 months for surveillance. My findings are described in the full procedure note, which is enclosed. If I can be of further assistance, please feel free to contact me at . Sincerely, Toño Curtis, 07/06/2024 11:00:35 AM This report has been signed electronically.
[2024-07-06 11:10] VITALS: BP 122/75; BP 125/75; PULSE 73; RESP 16; O2SAT 94
[2024-07-06 11:13] VITALS: BP 122/75; BP 125/78; PULSE 79; RESP 16; TEMP 36.4; O2SAT 97
[2024-07-06] MEDS: oxyCODONE 5 MG Tablet PO (11:45)
[2024-07-06 12:04] VITALS: BP 122/75
--- NOTE | 2024-07-06 13:07 | PCM.POSTANE2 ---
Anesthesia Postop Eval I Sum Postop Eval Completion status Anesthesia document: Postop Eval 1 completed: Yes Anesthesia Postop Eval I Summary Anesthesia Postop Eval I Summary: Anesthesia Postop Eval I: Assessment Summary Airway patent Yes 07/06/24 11:00 [email or web address] Spontaneous unlabored Yes 07/06/24 11:00 [email or web address] respirations Mental status Asleep 07/06/24 11:00 [email or web address] nausea No 07/06/24 11:00 [email or web address] Vomiting No 07/06/24 11:00 [email or web address] Anesthesia Postop Eval I: Fluid Summary Crystalloid volume administer 400 07/06/24 11:00 [email or web address] (ml) Colloids volume administered ( ml) Blood Product volume administered (ml) Total IV fluid infused 400 07/06/24 11:00 [email or web address] Anesthesia Postop Eval I: Summary Notes Anesthesia Complication No 07/06/24 11:00 [email or web address] Anesthesia Complication Comment: Post-operative progress note Anesthesia: Postop Eval II Evaluation Mental status: Awake Pain Level: 0 nausea: No Vomiting: No
== END 2024-07-06 12:08 | disposition home or self-care (01) ==
LOC: EN 09:12 → AC 09:13
PROVIDERS: PCP Family Medicine; Referring Provider Internal Medicine Gastroenterology; Visit Provider Internal Medicine Gastroenterology
PROC: 0DJ08ZZ Inspection of Upper Intestinal Tract, Via Natural or Artificial Opening Endoscopic (ICD-10-PCS; CPT 43235; principal; 2024-07-06 10:10)
DX: I85.00 Esophageal varices without bleeding (principal); K76.6 Portal hypertension; I85.10 Secondary esophageal varices without bleeding; K74.60 Unspecified cirrhosis of liver; E11.9 Type 2 diabetes mellitus without complications; K25.9 Gastric ulcer, unspecified as acute or chronic, without hemorrhage or perforation; K29.50 Unspecified chronic gastritis without bleeding; K31.84 Gastroparesis; E66.9 Obesity, unspecified; I10 Essential (primary) hypertension; E07.9 Disorder of thyroid, unspecified; Z79.899 Other long term (current) drug therapy; Z79.84 Long term (current) use of oral hypoglycemic drugs; Z87.891 Personal history of nicotine dependence
CPT/HCPCS: 43244; 43239; 82962; 88305; 88342; J7120; J2405

== ENCOUNTER → 2024-07-25 | Outpatient (CLI) | payer MEDICARE, BC, SELFPAY ==
--- NOTE | 2024-07-25 08:53 | RAD_ITS ---
STUDY: X-RAY - ESOPHAGUS (BARIUM SWALLOW) WITH FLUOROSCOPY REASON FOR EXAM: Female, 69 years old. dysphagia, odynophagia TECHNIQUE: 83 fluoroscopic view(s) of the esophagus were obtained following swallowing of barium. FLUOROSCOPY TIME (if supplied): (47 seconds) minutes/seconds. 7.04 mGy. COMPARISON: None. FINDINGS: There is no demonstrated esophageal foreign body. There is no demonstrated stricture or mucosal abnormality. Normal gastroesophageal junction, without a demonstrated hiatal hernia. The patient ingested a 12 mm tablet of barium. The tablet disc that at the gastroesophageal junction. There is atherosclerotic calcification of the aortic arch with tortuosity of the descending aorta. Normal visualized pulmonary parenchyma. There are diffuse degenerative changes of the visualized thoracic spine. RAD/Esophagus Dual Contrast IMPRESSION: The patient ingested a 12 mm tablet of barium. The tablet this tract at the gastroesophageal junction. Endoscopic correlation recommended. Electronically Signed: Mao Glez MD at 10:29 EDT ,
== END | disposition home or self-care (01) ==
LOC: RAD 08:43
PROVIDERS: PCP Family Medicine; Referring Provider Internal Medicine; Visit Provider Internal Medicine
DX: R13.10 Dysphagia, unspecified (principal)
CPT/HCPCS: 74221

== ENCOUNTER → 2024-09-20 | Outpatient (CLI) | payer MEDICARE, BC, SELFPAY ==
[2024-09-20 12:17] LABS: Absolute Neutrophil Count 3.4 X10^3/uL (2.0-7.7); Basophil# 0.06 X10^3/uL; Basophil% 1.1 % (0-1); Eosinophils% 5.5 % (0-5); Hematocrit 34.1 % (37-47); Hemoglobin 9.8 g/dL (12.0-15.0); Lymphocyte % 22.1 % (19-41); Mean Corp Hgb Conc 28.7 g/dL (32-36); Mean Corpuscular Hgb 25.3 pg (27.0-32.0); Mean Corpuscular Volume 87.9 fL (81-99); Monocyte# 0.39 X10^3/uL; Monocyte% 7.2 % (0-10); NRBC Flagged by Analyzer 0 % (0-5); Neutrophil # 3.43 X10^3/uL (2.7-7.7); Neutrophil % 63.4 % (47-70); Platelet Count 106 K/mm3 (150-450); RBC Distribution Width CV 15.6 % (11.6-14.6); RBC Distribution Width SD 49.3 fl (35.1-43.9); Red Blood Count 3.88 M/mm3 (4.2-5.4); White Blood Count 5.4 K/mm3 (4.4-11.0)
[2024-09-20 12:32] LABS: Prothrombin Time (Protime)PT. 13.5 SECONDS (11.7-14.9)
[2024-09-20 12:42] LABS: Vitamin D,25 Hydroxy 31.8 ng/mL
[2024-09-20 13:05] LABS: ALB/GLOB Ratio 1.1 RATIO (0.9-2.4); AST(SGOT) 30 U/L (15-37); Alanine Aminotransfer ALT/SGPT 29 U/L (13-56); Alkaline Phosphatase 95 U/L (45-117); Anion Gap 10 (5-15); BUN 12 mg/dL (7-18); BUN/Creat Ratio 16.2 RATIO (10-20); Calcium,Total 9.3 mg/dL (8.5-10.1); Chloride 103 mmol/L (98-107); Cholesterol 175 mg/dL (200); Creatinine, Serum 0.74 mg/dL (0.55-1.02); EST Glomerular Filtration Rate 82 mL/min (>60); Est Glom Filt Rate - Afr Amer 100 mL/min (>60); Globulin 3.8 g/dL (2.2-4.2); Glucose 195 mg/dL (74-106); High Density Lipoprotein 45 mg/dL; Potassium 3.8 mmol/L (3.5-5.1); Protein, Total 7.8 g/dL (6.4-8.2); Sodium Level 138 mmol/L (136-145); Triglycerides 253 mg/dL; Very Low Density Lipoprotein 51 mg/dL (5-40)
[2024-09-20 13:46] LABS: Hemoglobin A1c 6.5 % (3.8-5.6)
[2024-09-21 11:09] LABS: ANTINUCLEAR ANTIBODIES DIRECT Negative (Negative)
== END | disposition home or self-care (01) ==
LOC: LAB 11:58
PROVIDERS: PCP Family Medicine; Referring Provider Internal Medicine; Visit Provider Internal Medicine
DX: E78.5 Hyperlipidemia, unspecified (principal); I85.10 Secondary esophageal varices without bleeding; K74.60 Unspecified cirrhosis of liver; E11.9 Type 2 diabetes mellitus without complications; K92.2 Gastrointestinal hemorrhage, unspecified; K31.84 Gastroparesis; R13.10 Dysphagia, unspecified; M81.0 Age-related osteoporosis without current pathological fracture
CPT/HCPCS: 36415; 80053; 80061; 82306; 83036; 85025; 85610; 86038; 86225; 86235

== ENCOUNTER → 2024-10-14 | Outpatient (CLI) | payer MEDICARE, BC, SELFPAY ==
--- NOTE | 2024-10-14 09:13 | US_ITS ---
STUDY: THYROID ULTRASOUND REASON FOR EXAM: Female, 69 years old. Palpable enlarged thyroid TECHNIQUE: Ultrasound evaluation of the thyroid was performed with real-time and static bassett-scale imaging. COMPARISON: None. FINDINGS: RIGHT LOBE: The right lobe of the thyroid gland measures 3.3 x 0.9 x 1.3 cm. There is a homogeneous echotexture. There is a hypoechoic 4 mm well-defined nodule This nodule is solid or almost completely solid, hypoechoic, [id number], smoothly marginated and contains no echogenic foci. TI-RADS points: 4. TI-RADS category: TR4. This nodule is moderately suspicious but no FNA or follow-up is necessary given the small size of this nodule. LEFT LOBE: The left lobe of the thyroid gland measures 3.8 x 1.2 x 1.3 cm. There is a homogeneous echotexture. There is a solid hypoechoic 0.3 cm well-defined nodule This nodule is solid or almost completely solid, hypoechoic, [id number], smoothly marginated and contains no echogenic foci. TI-RADS points: 4. TI-RADS category: TR4. This nodule is moderately suspicious but no FNA or follow-up is necessary given the small size of this nodule. ISTHMUS: The isthmus measures 0.2 cm. The regional lymph nodes are normal. US/Thyroid IMPRESSION: Normal sized homogeneous thyroid gland with bilateral well-defined hypoechoic solid nodules. Categorization and follow-up as described above. Electronically Signed: Keanu Ferraro MD at 8:26 EST ,
--- NOTE | 2024-10-14 09:13 | US_ITS ---
STUDY: ABDOMINAL ULTRASOUND - RIGHT UPPER QUADRANT; ELASTOGRAPHY REASON FOR VISIT: Female, 69 years old. Cirrhosis. Portal hypertension. TECHNIQUE: Ultrasound evaluation of the right upper quadrant was performed with real-time and static bassett-scale imaging. Point quantification shear wave elastography was performed (Countdown). TECHNICAL QUALITY: Adequate. COMPARISON: Comparison is made with prior study dated April 02, 2023. FINDINGS: Liver: The liver measures 16.8 cm. There is increased echogenicity consistent with fatty infiltration. The bile ducts are within normal limits. There is hepatic color flow. The direction of portal flow is hepatopetal. There is no demonstrated mass lesion. Median liver stiffness measured 10 kPa. Gallbladder: Normal distended gallbladder. The gallbladder wall measures 2.7 mm. There is a negative sonographic Nieves''s sign. There is no pericholecystic fluid. There are no gallstones. Common Bile Duct (C.B.D.): The common bile duct measures 5.0 mm. Pancreas: There is normal echogenicity of the visualized pancreas. There is no demonstrated pancreatic mass or cyst. Right Kidney: Normal size of the right kidney. The right kidney measures 10.4 cm x 5.2 cm x 4.0 cm. Normal renal cortex. The right cortex measures 1.0 cm. There is no demonstrated renal mass or cyst. There is no right hydronephrosis. IMPRESSION: 1. Liver stiffness measures 10 kPa compatible with F2-F3 (Mild to moderate liver fibrosis) Metavir score. Electronically Signed: Mao Glez MD at 14:41 EST , STUDY: ABDOMINAL ULTRASOUND - LEFT UPPER QUADRANT REASON FOR EXAM: Female, 69 years old. Cirrhosis, portal HTN -- Including spleen TECHNIQUE: Transabdominal ultrasound was performed with real-time and static bassett scale imaging. TECHNICAL QUALITY: Adequate. COMPARISON: None. FINDINGS: Spleen: There is splenomegaly. The spleen measures 13.3 cm x 5.2 cm x 6.3 cm. US/ABD Limited w/ Elastography IMPRESSION: Mild splenomegaly. Electronically Signed: Mao Glez MD at 14:41 EST ,
== END | disposition home or self-care (01) ==
LOC: US 09:13
PROVIDERS: PCP Family Medicine; Referring Provider Internal Medicine; Visit Provider Internal Medicine
DX: I85.10 Secondary esophageal varices without bleeding (principal); K74.60 Unspecified cirrhosis of liver; K92.2 Gastrointestinal hemorrhage, unspecified; K31.84 Gastroparesis; R13.10 Dysphagia, unspecified
CPT/HCPCS: 76536; 76705; 76981

== ENCOUNTER 2024-11-09 13:48 | Day surgery (SDC) | payer MEDICARE, BC, SELFPAY ==
[2024-11-09] VITALS (10 sets, daily range): BP systolic 114–140; BP diastolic 64–79; PULSE 68–83; RESP 15–16; TEMP 36.2–36.8; O2SAT 92–100; BMI 31.1
--- NOTE | 2024-11-09 14:10 | HP.PCM_ITS ---
HPI - General General Date of Admission: 11/09/24 Date of Service: 11/09/24 Chief Complaint: varcies [facility] Narrative JAVON CAMPBELL, is a 69 F who presents surveillance of her esophageal varices. *[facility] hospitalization 01.18.23-01.21.23 for upper GIB with hematemesis with nausea and weakness. GI consulted 01.19.23. CT abd/pel 01.18.23 hepatomegaly with cirrhotic changes; stool throughout colon; enhancing nodule of duodenum [id number]. EGD 01.19.23 five columns oozing grade III varices upper/middle/lower esophagus, banded; three bleeding AVM in stomach; one non- bleeding duodenal ulcer. No specimens collected MRI 01.21.23 cirrhotic liver with splenomegaly; duodenal enhancement measuring 1.5cm. OV 6.. with acidic stomach for which she has used PPI for 10 years. With lactulose BM daily, loose. reports forgetfulness. Denies sleep disturbance, jaundice, bleeding, pruritis. US 6.15.23 without ascites. EGD 04.08.2323 Grade II varices of middle/lower third esophagus, banded; small hiatal hernia; erythema with bleeding on lesser curvature of stomach, gastritis; 5mm mucosal polypoid OV 7.10.23 with improvement of nausea frequency. She did reduce lactulose QD with 2-3 BM/day. Confusion/brain fog has improved per . Notes increased cough with liquids but not consistently. Continues with nadolol and PPI EGD 08.10.23- Grade II esophageal varices, incompletely eradicated. Banded; small amount of food in stomach. No specimines collected. OV 11.27.23- Pt is doing well since last visit. Reports intermittent postprandial RUQ pain and nausea. Takes Lactulose QD with 2-3 complete BM a day. Denied any edema, confusion/ brain fog or issues with sleep. Continues PPI with minimal heartburn. MELD Na score is 8. C/o mild upper quadrant abdominal pain adjacent with the food on lactulose but lactulose makes her more nauseous but no vomiting, burping and gaseous feeling. OV 2.14.24- Nausea, indigestion, and upper mid to LUQ abdomen abdominal pain after eating certain foods in the evening, attempting keep away from triggers. She states that food stays longer with burping and air/gas. Occasional Tums PRN with success. Nausea after taking lactulose improved. Loose stool about once daily. She takes lactulose 30 mL once daily. Mild swelling in feet. Gabapentin prescribed by neurologist effective sleep aide. Denies confusion, brain fog and BLE edema. Received correspondence from medical insurance prior auth needed Xifaxan through [employer]. CT abd/pel w/wo 12.16.23- Hepatomegaly and diffuse fatty infiltration of the liver Gastric emptying study .11.11- Abnormal, 102.96 mins 5.24 MELD na- 7 OV 03.07.24- Pt well since last visit. Continues to have nausea and RUQ abdominal discomfort/pressure like fist pressing. States she takes Lactulose once a day and BM are normal. She was able to get the Xifaxan. Denies dizziness, weakness, confusion, and swelling. 06.07.24- MELDNa, 8 07.06.24 EGD, grade II esophageal varices. Completely eradicated. Banded. Non- bleeding gastric ulcer with no stigma of bleeding. Biopsied. Portal hypertensive gastropathy. No gross lesions in the first portion of the duodenum. Lesser curvature ulcer biopsy, negative H.Pylori. Chronic ulcer with gastritis. Continue pantoprazole 40 mg BID, start Carafate TID x 8 weeks. OV 07.15.24- Since recent EGD, difficulty swallowing and chest heaviness. Nausea and heartburn before or after meals. No acute concerns. Denies dizziness, weakness, confusion or swelling. Need refill of iron tabs. Patient taking PPI twice daily and sucralfate 09.20.24MELD na 6, Barium swallow 07.25.24 OV 09.28.24 Pt here for f/u and reports trouble swallowing. Dysphagia with solid food/liquid food and 1 time gummy was stuck in the throat. And denies any edema, confusion/brain fog or sleep issues. Continues taking pantoprazole, lactulose, and Xifaxan daily. [facility] Medical History Back pain Wears glasses Thyroid disease Gout Arthritis Anemia High cholesterol History of GI bleed History of diverticulitis Gastric reflux Former smoker History of edema History of echocardiogram History of stress test Hypertension Diabetes Migraines Home Medications ?Medication ?Instructions ?Recorded ?Last Taken ?Type rizatriptan 10 mg tablet 10 mg PO PRN PRN Migraine Headache 12/28/13 Unknown History Lactobacillus acidophilus 10 mg PO DAILY Check with primary 01/18/23 07/02/24 History (Acidophilus capsule) doctor allopurinol 100 mg tablet 100 mg PO DAILY Check with primary 01/18/23 07/05/24 History doctor cyclosporine 0.05 % eye drops in a 1 drp ophthalmic (eye) BID health 01/18/23 Unknown History dropperette (Restasis) maintenance dulaglutide 3 mg/0.5 mL 3 mg subcut TH Check with primary 01/18/23 10/27/24 History subcutaneous pen injector doctor (Trulicjose a) erythromycin 5 mg/gram (0.5 %) eye 1 applic ophthalmic (eye) QHS 01/18/23 Unknown History ointment health maintenance ezetimibe 10 mg tablet 10 mg PO DAILY Check with primary 01/18/23 07/05/24 History doctor fluorometholone 0.1 % eye 1 drp ophthalmic (eye) BID health 01/18/23 Unknown History drops,suspension maintenance gabapentin 400 mg tablet 800 mg PO QHS health maintenance 01/18/23 07/05/24 History galcanezumab-gnlm 120 mg/mL 120 mg subcut QMONTH Check with 01/18/23 10/26/24 History subcutaneous pen injector primary doctor (Emgality Pen) metformin 1,000 mg tablet 1,000 mg PO BID diabetic 01/18/23 11/08/24 History multivitamin with minerals 2 tab PO DAILY Check with primary 01/18/23 07/02/24 History (Hair,Skin and Nails tablet) doctor ylmhjftsctie-Op-zaar-minerals 18 2 tab PO DAILY health maintenance 01/18/23 07/02/24 History mg-0.4 mg tablet vit C 250 mg-vit E 90 mg-zinc 40 1 tab PO BID Check with primary 01/18/23 Unknown History mg-copper 1 kq-siblkk-kvtguz doctor capsule (PreserVision AREDS-2) levothyroxine 88 mcg tablet 88 mcg PO DAILY 07/04/24 11/09/24 History magnesium 200 mg tablet 200 mg PO DAILY Check with primary 07/04/24 07/02/24 History doctor pantoprazole 40 mg tablet,delayed 40 mg PO BID 07/04/24 11/09/24 History release ferrous sulfate 325 mg (65 mg 325 mg PO Q OTHER DAY 1 month #30 07/15/24 Unknown Rx iron) tablet tabs lactulose 20 gram/30 mL oral 20 g PO QDAY 07/15/24 Unknown History solution spironolactone 25 mg tablet 25 mg PO DAILY 1 month #30 tabs 07/15/24 Unknown Rx carvedilol 6.25 mg tablet 6.25 mg PO BID 1 month #60 tabs 09/28/24 11/09/24 Rx fexofenadine 180 mg tablet 180 mg PO DAILY PRN allergic 09/28/24 Unknown History symptoms rifaximin 550 mg tablet (Xifaxan) 550 mg PO BID 30 days #60 tabs 09/28/24 Unknown Rx Allergy/AdvReac Type Severity Reaction Status Date / Time ciprofloxacin (From Cipro) Allergy Other Verified 11/09/24 14:09 ciprofloxacin HCl (From Allergy Other Verified 11/09/24 14:09 Cipro) metronidazole Allergy Other Verified 11/09/24 14:09 Penicillins (PCN) Allergy Other Verified 11/09/24 14:09 Sulfa (Sulfonamide Allergy Rash Verified 11/09/24 14:09 Antibiotics) Blzbamv-NES-SgA Reductase AdvReac Other Verified 11/09/24 14:09 Inhibitor Family History Grandfather Diabetes Grandmother Diabetes Father Heart problem Mother CVA (cerebral vascular accident) Surgical History History of esophagogastroduodenoscopy (EGD) Hx of esophagogastroduodenoscopy Hx of tonsillectomy History of Status post left foot surgery Social History Smoking Status: Never smoker alcohol intake: never substance use type: does not use ROS Constitutional Constitutional: Denies fatigue, fever(s), poor appetite, weight gain or weight loss Gastrointestinal Gastrointestinal: Denies belching, bloating, change in bowel habits, change in stool character, chewing difficulty, coffee ground emesis, constipation, cramping, diarrhea, dyspepsia, dysphagia, early satiety, excessive flatus, fecal incontinence, heartburn, hematemesis, hematochezia, hemorrhoids, loose stools, melena, nausea, odynophagia, rectal bleeding, tenesmus, vomiting or weight changes Vital Signs Vital Signs Vital Signs: 11/09/24 14:11 11/09/24 14:11 11/09/24 14:30 Temperature 97.1 F L 97.1 F L Temperature Source Temporal Pulse Rate 76 76 Respiratory Rate 16 16 Respiratory Pattern Normal Blood Pressure 115/64 115/64 Blood Pressure Mean 81 Blood Pressure Source Monitor Blood Pressure Position Semi-Fowlers Blood Pressure Location Left Arm Pulse Ox 100 100 Oxygen Delivery Method Room Air Room Air Weight Weight: 154 lb 5.177 oz Body Mass Index (BMI) 31.1 Physical Exam Const alert, oriented x3, no apparent distress and healthy appearing General Appearance: cooperative GI normal to inspection, nondistended, normoactive bowel sounds, soft to palpation, non-tender and non-distended Percussion: normal to percussion Rectal Exam: deferred Results Lab / Micro Data Labs: Laboratory Results - last 24 hr 11/09/24 14:14: POC Glucose 122 H Assessment & Plan Assessment/Plan (1) GI (gastrointestinal bleed): (2) Cirrhosis: (3) Esophageal varices: QUALIFIERS: Esophageal varices type: secondary Esophageal varices bleeding: without bleeding Qualified Code(s): I85.10 - Secondary esophageal varices without bleeding PLAN: Plan Assessment and Plan Assessment and Plan (1) Cirrhosis: Status: Chronic Plan: 67-year-old with nonalcoholic steatohepatitis decompensated cirrhosis with MELD sodium score 6 on 09/20/2023, class CTP A, 5 points. The patient had variceal bleed, grade 3 to grade had recent EGD in June 2024 which showed grade 2 esophageal varices completely eradicated, banded. Nonbleeding gastric ulcer. PHG. Negative for H. pylori. She is on pantoprazole 40 mg twice daily. Patient completed sucralfate. She takes lactulose 30 mill once daily. Labs reviewed. Will close 195 but not fasting. A1c 6.5%. TG 253. Anemia of chronic disease and iron versus anemia. H&H 9.8/34%. A1c 5.9% with negative. Glucose 136. On antidiabetic medications Last CT abdomen, triple phase, November 2023 and MRI abdomen/pelvis from January 2023 were reviewed. Cirrhotic changes but no specific mass reported. Borderline splenomegaly. Continue spironolactone 25 mg daily. Nadolol changed to carvedilol 6.25 mg twice daily. Ferrous sulfate every other day. Rifaximin refilled. Continue lactulose Follow-up labs ordered in 3-month (2) Esophageal varices: Status: Chronic Qualifiers: Esophageal varices bleeding: without bleeding Esophageal varices type: secondary Qualified Code(s): I85.10 - Secondary esophageal varices without bleeding Plan: No GI bleed recent. She was last admitted in January 2023 for GI bleed. Last EGD in June 2024 as described Need repeat EGD in September 2024/October 2024. (3) Dysphagia: Status: Chronic Plan: Complain of dysphagia around throat area and upper chest. Barium esophagram reviewed. Pill not moving beyond the GE junction. No demonstrated stricture or mucosal abnormality without hiatus hernia. No FB. Gastric emptying study shows delayed emptying. Plan: Refer to speech therapy. Schedule EGD. Thyroid ultrasound ordered. Unnecessary vitamins and supplements discontinued. Hold for esophageal manometry for now, as the patient and I agreed it will not change much management as she has difficulty in swallowing pills Orders:
--- NOTE | 2024-11-09 14:24 | PCM.PRE.AN2 ---
ASA Classification* ASA Classification ASA Classification: 3 Assessment & Plan Anesthesia* Anesthesia Assessment Anesthesia Assessment: Discussed sedation and/or anesthesia options, risks, benefits, and alternatives with patient/parents/legal guardian/POA. Questions invited. The patient/parents/legal guardian/POA seems to understand and agrees to proceed with anesthesia plan. Reviewed the physical assessment, medical history, allergy history and patient home medications list prior to surgery/procedure/anesthetic and documented any changes. Performed airway and anesthesia risk assessments. Procedural Plan Add'l anesthesia plan details: Patient has had previous banding before. No nausea for vomiting today. Anesthesia Type Anesthesia Type: MAC History Source History Obtained from:: Patient and Chart Anesthesia Focused Assessment* Temperature: 97.1 F Pulse Rate: 76 Blood Pressure: 115/64 Respiratory Rate: 16 Pulse Ox: 100 Oxygen Delivery Method: Room Air Airway Assessment Mouth opens: >3 cm Mallampati Score: II Teeth Condition: Dentures Neck Range of motion (ROM): Full ROM Focused Labs Anesthesia Preop lab: CBC WBC 5.4 K/mm3 (4.4-11.0) 09/20/24 12:02 RBC 3.88 M/mm3 (4.2-5.4) L 09/20/24 12:02 Hgb 9.8 g/dL (12.0-15.0) L 09/20/24 12:02 Hct 34.1 % (37-47) L 09/20/24 12:02 Plt Count 106 K/mm3 (150-450) L 09/20/24 12:02 CHEMISTRY Potassium 3.8 mmol/L (3.5-5.1) 09/20/24 12:02 Sodium 138 mmol/L (136-145) 09/20/24 12:02 Magnesium 2.0 mg/dL (1.6-2.6) 01/19/23 05:35 BUN 12 mg/dL (7-18) 09/20/24 12:02 Creatinine 0.74 mg/dL (0.55-1.02) 09/20/24 12:02 Glucose 195 mg/dL (74-106) H 09/20/24 12:02 POC Glucose 138 mg/dL (74-106) H 07/06/24 09:43 TSH 2.39 uIU/mL (0.358-3.74) 04/19/20 07:25 COAG PT 13.5 SECONDS (11.7-14.9) 09/20/24 12:02 Pre-Assessment Diagnosis/Proposed Procedure Planned Operative Procedure(s): EGD Anesthesia History Anesthesia History - director of brand marketing: Anesthesia History - director of brand marketing Hx Hospitalization No 11/07/24 08:57 Any Problems With Anesthesia No 11/07/24 08:57 Cholinesterase deficiency No 11/07/24 08:57 You/Your Family Experience No 11/07/24 08:57 fever (hyperthermia) with Relationship Recent Exposure to Contagious No 11/09/24 14:11 Disease Does patient have nerve No 11/07/24 08:57 stimulator Patient instructed to have device shut off --Does patient have Pacemaker No 11/09/24 14:11 or ICD? When Was Last Pacemaker Check QUESTION #4 FULL TEXT: You/Your Family Experience fever (hyperthermia) with Anesthesia Last Oral Intake Last Oral intake: Last Oral Intake NPO since 02:00 11/09/24 14:11 Meds taken in AM with sips of Yes 11/09/24 14:11 water? Meds patient instructed to COREG,LEVOTHYROIXNE,PROTONIX 11/09/24 14:11 take am of surgery PONV PONV - director of brand marketing: PONV - director of brand marketing Female Yes 11/07/24 08:57 HX of Motion Sickness No 11/07/24 08:57 HX of N/V After Surgery No 11/07/24 08:57 Non-Smoker Yes 11/07/24 08:57 Duration of Surgery greater No 11/07/24 08:57 than 60 minutes Number of Risk Factors 2 11/07/24 08:57 PONV Score Moderate Risk 11/07/24 08:57 Height & Weight Height & Weight: Anesthesia: Height & Weight Height 4 ft 11 in 11/09/24 14:11 Weight: 70 kg 11/09/24 14:11 Body Mass Index (BMI) 31.1 11/09/24 14:11 Respiratory Assessment Respiratory Assessment - director of brand marketing: Respiratory Tract Infection Hx - director of brand marketing Hx Respiratory Tract Infection No 11/07/24 08:57 STOP Sleep Apnea STOP Sleep Apnea - director of brand marketing: STOP Sleep Apnea - director of brand marketing Hx Hypertension No: COREG FOR VARICES OF 11/07/24 08:57 ESPHOGUS Hx Sleep Apnea No 11/07/24 08:57 CPAP BIPAP Do you snore loudly (louder No 11/07/24 08:57 than talking or can be heard Do you often feel tired/ Yes 11/07/24 08:57 fatigued/ sleepy during daytime? Has anyone observed you stop No 11/07/24 08:57 breathing during sleep? STOP Results Negative 11/07/24 08:57 QUESTION #5 FULL TEXT : Do you snore loudly (louder than talking or can be heard through closed doors)? 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 Specify any problems Hx of Preganancy in last 3 No 11/07/24 08:57 Months Nurse Filling Out Transfusion DSCHRIBER 11/07/24 08:57 & Questions: Date: 11/07/24 11/07/24 08:57 Time: 09:00 11/07/24 08:57 Patient unable to answer at this time (ie. confused, unrespo /Reproduction History /Reproductive History - director of brand marketing: /Reproductive Hx- director of brand marketing Hx Now No 11/07/24 08:57 Gestational Age (in weeks): EDC: Hx Hx Para Hx Section SAB No 11/07/24 08:57 PFSH Medical History Back pain Wears glasses Thyroid disease Gout Arthritis Anemia High cholesterol History of GI bleed History of diverticulitis Gastric reflux Former smoker History of edema History of echocardiogram History of stress test Hypertension Diabetes Migraines Home Medications ?Medication ?Instructions ?Recorded ?Last Taken ?Type rizatriptan 10 mg tablet 10 mg PO PRN PRN Migraine Headache 12/28/13 Unknown History Lactobacillus acidophilus 10 mg PO DAILY Check with primary 01/18/23 07/02/24 History (Acidophilus capsule) doctor allopurinol 100 mg tablet 100 mg PO DAILY Check with primary 01/18/23 07/05/24 History doctor cyclosporine 0.05 % eye drops in a 1 drp ophthalmic (eye) BID health 01/18/23 Unknown History dropperette (Restasis) maintenance dulaglutide 3 mg/0.5 mL 3 mg subcut TH Check with primary 01/18/23 10/27/24 History subcutaneous pen injector doctor (Trulicity) erythromycin 5 mg/gram (0.5 %) eye 1 applic ophthalmic (eye) QHS 01/18/23 Unknown History ointment health maintenance ezetimibe 10 mg tablet 10 mg PO DAILY Check with primary 01/18/23 07/05/24 History doctor fluorometholone 0.1 % eye 1 drp ophthalmic (eye) BID health 01/18/23 Unknown History drops,suspension maintenance gabapentin 400 mg tablet 800 mg PO QHS health maintenance 01/18/23 07/05/24 History galcanezumab-gnlm 120 mg/mL 120 mg subcut QMONTH Check with 01/18/23 10/26/24 History subcutaneous pen injector primary doctor (Emgality Pen) metformin 1,000 mg tablet 1,000 mg PO BID diabetic 01/18/23 11/08/24 History multivitamin with minerals 2 tab PO DAILY Check with primary 01/18/23 07/02/24 History (Hair,Skin and Nails tablet) doctor lgreivgvfjbn-Fx-rkyd-minerals 18 2 tab PO DAILY health maintenance 01/18/23 07/02/24 History mg-0.4 mg tablet vit C 250 mg-vit E 90 mg-zinc 40 1 tab PO BID Check with primary 01/18/23 Unknown History mg-copper 1 na-mihdbb-ywhxzl doctor capsule (PreserVision AREDS-2) levothyroxine 88 mcg tablet 88 mcg PO DAILY 07/04/24 11/09/24 History magnesium 200 mg tablet 200 mg PO DAILY Check with primary 07/04/24 07/02/24 History doctor pantoprazole 40 mg tablet,delayed 40 mg PO BID 07/04/24 11/09/24 History release ferrous sulfate 325 mg (65 mg 325 mg PO Q OTHER DAY 1 month #30 07/15/24 Unknown Rx iron) tablet tabs lactulose 20 gram/30 mL oral 20 g PO QDAY 07/15/24 Unknown History solution spironolactone 25 mg tablet 25 mg PO DAILY 1 month #30 tabs 07/15/24 Unknown Rx carvedilol 6.25 mg tablet 6.25 mg PO BID 1 month #60 tabs 09/28/24 11/09/24 Rx fexofenadine 180 mg tablet 180 mg PO DAILY PRN allergic 09/28/24 Unknown History symptoms rifaximin 550 mg tablet (Xifaxan) 550 mg PO BID 30 days #60 tabs 09/28/24 Unknown Rx Allergy/AdvReac Type Severity Reaction Status Date / Time ciprofloxacin (From Cipro) Allergy Other Verified 11/09/24 14:09 ciprofloxacin HCl (From Allergy Other Verified 11/09/24 14:09 Cipro) metronidazole Allergy Other Verified 11/09/24 14:09 Penicillins (PCN) Allergy Other Verified 11/09/24 14:09 Sulfa (Sulfonamide Allergy Rash Verified 11/09/24 14:09 Antibiotics) Prdalhi-QVM-VvU Reductase AdvReac Other Verified 11/09/24 14:09 Inhibitor Family History Grandfather Diabetes Grandmother Diabetes Father Heart problem Mother CVA (cerebral vascular accident) Surgical History History of esophagogastroduodenoscopy (EGD) Hx of esophagogastroduodenoscopy Hx of tonsillectomy History of Status post left foot surgery Social History Smoking Status: Never smoker alcohol intake: never substance use type: does not use Review of Systems (Anesthesia) ROS Narrative System reviewed and no additional complaints, except as documented. Physical Exam Const alert and oriented x3 Resp normal respiratory effort and normal air movement Cardio regular rate and regular rhythm Neuro oriented x3 and moves all extremities
[2024-11-09 14:38] LABS: Bedside Glucose 122 mg/dL (74-106)
--- NOTE | 2024-11-09 14:59 | OP.CCLET_ITS ---
11/09/2024 Rian Julian [address] [place] [address] Re : Upper GI endoscopy procedure for Krista Lopez Dear Dr. Julian This procedure was performed on Saturday, November 09, 2024. My impressions and recommendations are as follows: Impressions : - Grade II esophageal varices. Incompletely eradicated. Banded. - Portal hypertensive gastropathy. - Chronic duodenitis. Biopsied. Recommendations : - Discharge patient to home. - Resume previous diet. - Continue present medications. - Await pathology results. - Repeat upper endoscopy in 4 months for surveillance. My findings are described in the full procedure note, which is enclosed. If I can be of further assistance, please feel free to contact me at . Sincerely, Toño Friend, 11/09/2024 2:59:07 PM This report has been signed electronically.
--- NOTE | 2024-11-09 14:59 | OP.EGD_ITS ---
Patient Name: Krista Lopez Procedure Date: 11/09/2024 2:36 PM Date of : 1955 Age: 69 Procedure: Upper GI endoscopy Indications: For therapy of esophageal varices Providers: Toño Curtis DO Referring MD: Rian Julian Medicines: Monitored Anesthesia Care Patient Profile: This is a 69 year old female. Refer to note in patient chart for documentation of history and physical. Patient has symptoms. Her most recent EGD for treatment of bleeding was within the past six months. Complications: No immediate complications. Procedure: Pre-Anesthesia Assessment: - Prior to the procedure, a History and Physical was performed, and patient medications and allergies were reviewed. The patient is competent. The risks and benefits of the procedure and the sedation options and risks were discussed with the patient. All questions were answered and informed consent was obtained. Patient identification and proposed procedure were verified by the physician in the pre-procedure area. Mental Status Examination: alert and oriented. Airway Examination: normal oropharyngeal airway and neck mobility. Respiratory Examination: clear to auscultation. CV Examination: normal. Prophylactic Antibiotics: The patient does not require prophylactic antibiotics. Prior Anticoagulants: The patient has taken no anticoagulant or antiplatelet agents. ASA Grade Assessment: II - A patient with mild systemic disease. After reviewing the risks and benefits, the patient was deemed in satisfactory condition to undergo the procedure. The anesthesia plan was to use monitored anesthesia care (MAC). Immediately prior to administration of medications, the patient was re-assessed for adequacy to receive sedatives. The heart rate, respiratory rate, oxygen saturations, blood pressure, adequacy of pulmonary ventilation, and response to care were monitored throughout the procedure. The physical status of the patient was re-assessed after the procedure. After obtaining informed consent, the endoscope was passed under direct vision. Throughout the procedure, the patient's blood pressure, pulse, and oxygen saturations were monitored continuously. The gastroscope was introduced through the mouth, and advanced to the second part of duodenum. The upper GI endoscopy was accomplished without difficulty. The patient tolerated the procedure well. Scope In: 2:47:49 PM Scope Out: 2:54:23 PM Total Procedure Duration Time 0 hours 6 minutes 34 seconds Findings: Grade II varices were found in the middle third of the esophagus and in the lower third of the esophagus. They were 11 mm in largest diameter. Three bands were successfully placed with incomplete eradication of varices. Bleeding had stopped at the end of the procedure. Mild portal hypertensive gastropathy was found in the gastric body. Patchy mild inflammation characterized by granularity was found in the duodenal bulb. Biopsies were taken with a cold forceps for histology. Verification of patient identification for the specimen was done. Estimated blood loss was minimal. Impression: - Grade II esophageal varices. Incompletely eradicated. Banded. - Portal hypertensive gastropathy. - Chronic duodenitis. Biopsied. Recommendation: - Discharge patient to home. - Resume previous diet. - Continue present medications. - Await pathology results. - Repeat upper endoscopy in 4 months for surveillance. Procedure Code(s): --- Professional --- 80863, Esophagogastroduodenoscopy, flexible, transoral; with band ligation of esophageal/gastric varices 61622, Esophagogastroduodenoscopy, flexible, transoral; with biopsy, single or multiple CPT copyright 2021 [employer]. All rights reserved. The codes documented in this report are preliminary and upon programming engineer review may be revised to meet current compliance requirements. Toño Curtis DO 11/09/2024 2:59:07 PM This report has been signed electronically. Number of Addenda: 0 Note Initiated On: 11/09/2024 2:36 PM
--- NOTE | 2024-11-09 15:00 | EGD_PTH ---
PATIENT: JAVON CAMPBELL LOC: EN U#:[id number] AGE/SX: 69/F ROOM: RE11/09/[address]: Dr. Toño Curtis DO : 1955 BED: DIS: 11/09/2024 SPEC #: [id number] RECD: 11/09/24 17:51 STATUS: SADAF RODGER #: [id number] ABRAHAM: 11/09/24 15:[address]: Toño Curtis DEPT: SURGICAL PATHOLOGY RECD BY: Theresa Betts ENTERED: 11/10/24 10:42 SP TYPE: EGD BIOPSY MICHAEL DR: Dr. Rian Julian MD Tissues: Duodenum, NOS Procedures: Surgery Specimen Level IV HEADER OPERATION: EGD biopsy, esophageal banding PRE-OP DIAGNOSIS: Cirrhosis, esophageal varices, dysphagia TISSUE SUBMITTED: Duodenum biopsy MICROSCOPIC DIAGNOSIS Duodenum, biopsy: Fragments of duodenal mucosa, no pathologic diagnosis. 11/11/2024 MICROSCOPIC DESCRIPTION Slides are reviewed. GROSS DESCRIPTION Received in fixative is one container labeled with the patient's name and designated Duodenum biopsy. The specimen consists of two irregular fragments of light allen soft tissue that in aggregate measure 0.7 x 0.4 x 0.2 cm. The specimen is totally submitted in one cassette. 11/10/2024 TC:4 CPT:63007
--- NOTE | 2024-11-09 15:06 | PCM.POST.ANE ---
Anesthesia: Postop Eval I Current Vital Signs Temperature: 98.3 F Pulse Rate: 83 Blood Pressure: 140/75 Respiratory Rate: 16 Pulse Ox: 99 Oxygen Delivery Method: Room Air Assessment Airway patent: Yes Spontaneous unlabored respirations: Yes Mental status: Awake and Calm nausea: No Vomiting: No Anesthesia Complication: No Fluid Hydration Crystalloid volume administer (ml): 30 Total IV fluid infused: 30 Progress Note Anesthesia document: Postop Eval 1 completed: Yes
--- NOTE | 2024-11-09 15:15 | EKG12_ITS ---
Test Reason : CP Blood Pressure : */* mmHG Vent. Rate : 66 BPM Atrial Rate : 66 BPM P-R Int : 160 ms QRS Dur : 84 ms QT Int : 404 ms P-R-T Axes : 6 -30 1 degrees QTcB Int : 423 ms Normal sinus rhythm Left axis deviation Low voltage QRS Abnormal ECG Confirmed by SAMUEL GOLDMAN, CAMELIA ([id number]), medical transcription editor NIRAV MEJIA ([id number]) on 11/15/2024 6:24:09 AM Referred By: Rian Julian Confirmed By: CAMELIA BAKER MD
--- NOTE | 2024-11-09 15:22 | RAD_ITS ---
EXAM: XR CHEST, 1 VIEW CLINICAL INDICATION: CHEST PAIN TECHNIQUE: Frontal view of the chest. COMPARISON: 03/07/24 FINDINGS: LUNGS AND PLEURAL SPACES: Unremarkable. No consolidation or edema. No pneumothorax. No effusion. HEART: Unremarkable. Cardiac silhouette not enlarged. MEDIASTINUM: Central airways and mediastinal contour are unremarkable. BONES/JOINTS: Degenerative changes of the spine and acromioclavicular joints. No acute fracture. SOFT TISSUES: Unremarkable. RAD/Chest 1 View (Portable) IMPRESSION: No acute findings in the chest. Electronically Signed: Arthur Brandon MD at 17:04 EST ,
--- NOTE | 2024-11-09 16:00 | PCM.POSTANE2 ---
Anesthesia Postop Eval I Sum Postop Eval Completion status Anesthesia document: Postop Eval 1 completed: Yes Anesthesia Postop Eval I Summary Anesthesia Postop Eval I Summary: Anesthesia Postop Eval I: Assessment Summary Airway patent Yes 11/09/24 15:07 [email or web address] Spontaneous unlabored Yes 11/09/24 15:07 [email or web address] respirations Mental status Awake,Calm 11/09/24 15:07 [email or web address] nausea No 11/09/24 15:07 [email or web address] Vomiting No 11/09/24 15:07 [email or web address] Anesthesia Postop Eval I: Fluid Summary Crystalloid volume administer 30 11/09/24 15:07 [email or web address] (ml) Colloids volume administered ( ml) Blood Product volume administered (ml) Total IV fluid infused 30 11/09/24 15:07 [email or web address] Anesthesia Postop Eval I: Summary Notes Anesthesia Complication No 11/09/24 15:07 [email or web address] Anesthesia Complication Comment: Post-operative progress note Anesthesia: Postop Eval II Evaluation Mental status: Awake Pain Level: 2 nausea: No Vomiting: No Progress Note Post-operative progress note: The patient complained of none radiating retrosternal chest pain. She stated that the pain was non-radiating. The patient had just undergone esophageal banding. CXR down post operatively was non-acute and clear. and EKG was obtained that was non-ischemic. The patient was given a single dose of 15 mg of Toradol. She was given strict return precautions that if the pain became any worse or radiated that she was to represent to the ER. She verbalized that she understood these instructions and was discharged from PACU. Complications Anesthesia Complication: No
== END 2024-11-09 16:12 | disposition home or self-care (01) ==
LOC: EN 13:50 → AC 13:52
PROVIDERS: PCP Family Medicine; Referring Provider Family Medicine; Visit Provider Internal Medicine Gastroenterology
PROC: 0DJ08ZZ Inspection of Upper Intestinal Tract, Via Natural or Artificial Opening Endoscopic (ICD-10-PCS; CPT 43235; principal; 2024-11-09 14:55)
DX: I85.11 Secondary esophageal varices with bleeding (principal); K76.6 Portal hypertension; K74.60 Unspecified cirrhosis of liver; E11.9 Type 2 diabetes mellitus without complications; K29.80 Duodenitis without bleeding; E78.00 Pure hypercholesterolemia, unspecified; K21.9 Gastro-esophageal reflux disease without esophagitis; K31.89 Other diseases of stomach and duodenum; I10 Essential (primary) hypertension; Z79.899 Other long term (current) drug therapy; Z79.84 Long term (current) use of oral hypoglycemic drugs; Z79.85 Long-term (current) use of injectable non-insulin antidiabetic drugs; Z87.891 Personal history of nicotine dependence
CPT/HCPCS: 43244; 43239; 71045; 82962; 88305; 93005; A4216; J2405

== ENCOUNTER → 2024-12-24 | Outpatient (CLI) | payer MEDICARE, BC, SELFPAY ==
[2024-12-24 12:33] LABS: Absolute Lymphocyte Count 0.95 X10^3/uL (0.83-4.51); Absolute Neutrophil Count 3.2 X10^3/uL (2.0-7.7); Basophil# 0.04 X10^3/uL; Basophil% 0.8 % (0-1); Eosinophil# 0.25 X10^3/uL; Eosinophils% 5.3 % (0-5); Hematocrit 29.6 % (37-47); Lymphocyte # 0.95 X10^3/ul (0.83-4.51); Mean Corpuscular Hgb 21.8 pg (27.0-32.0); Mean Corpuscular Volume 80.7 fL (81-99); Mean Platelet Vol. 12.2 fl (6.2-12.0); Monocyte# 0.27 X10^3/uL; Monocyte% 5.7 % (0-10); NRBC Flagged by Analyzer 0 % (0-5); Neutrophil # 3.21 X10^3/uL (2.7-7.7); Neutrophil % 67.8 % (47-70); POSITIVE COUNT YES; Platelet Count 68 K/mm3 (150-450); Prothrombin Time (Protime)PT. 13.6 SECONDS (11.7-14.9); RBC Distribution Width CV 16.5 % (11.6-14.6); RBC Distribution Width SD 47.9 fl (35.1-43.9); Red Blood Count 3.67 M/mm3 (4.2-5.4); White Blood Count 4.7 K/mm3 (4.4-11.0)
[2024-12-24 12:58] LABS: ALB/GLOB Ratio 1.6 RATIO (0.9-2.4); AST(SGOT) 31 U/L (<=31); Alanine Aminotransfer ALT/SGPT 21 U/L (<=34); Albumin, Serum 4.3 g/dL (3.4-4.8); Alkaline Phosphatase 100 U/L (35-104); Anion Gap 16 (5-15); BUN 12 mg/dL (4-19); BUN/Creat Ratio 17.6 RATIO (10-20); CRP 8.98 mg/L (0.0-3.0); Calcium,Total 9.2 mg/dL (7.6-11.0); Carbon Dioxide 21.6 mmol/L (21.0-32.0); Chloride 101 mmol/L (98-108); Creatinine, Serum 0.65 mg/dL (0.70-1.20); EST Glomerular Filtration Rate 95 (>60); Globulin 2.6 g/dL (2.2-4.2); Glucose 282 mg/dL (70-99); Potassium 4.1 mmol/L (3.3-5.1); Sodium Level 138 mmol/L (133-145); Total Bilirubin 0.33 mg/dL (0.00-1.30)
== END | disposition home or self-care (01) ==
LOC: LAB 10:20
PROVIDERS: PCP Family Medicine; Referring Provider Internal Medicine; Visit Provider Internal Medicine
DX: K92.2 Gastrointestinal hemorrhage, unspecified (principal); I85.10 Secondary esophageal varices without bleeding; K74.60 Unspecified cirrhosis of liver; R13.10 Dysphagia, unspecified; D69.6 Thrombocytopenia, unspecified
CPT/HCPCS: 36415; 80053; 85025; 85610; 86140

== ENCOUNTER 2024-12-26 09:00 | Outpatient (RCR) | payer MEDICARE, BC, SELFPAY ==
--- NOTE | 2024-09-30 12:41 | HP.SP.EVAL ---
Visit History Visit Info Date of Eval: 09/30/24 Visit: 1 [employer] Equipment Operator: SARBJIT History Attending Doctor: Referring Doctor: Reason for Referral: DYSPHAGIA. RX HERE Medical Diagnosis: Dysphagia Previous speech therapy: No Other Relevant Medical History/Diagnoses/Surgery: History of GI bleed, History of diverticulitis, Gastric reflux, Former smoker, History of edema, Hypertension, Diabetes, Migraines, Back pain, History of steroid therapy, Thyroid disease, Gout, Arthritis, Anemia, High cholesterol Barium swallow on 07/25/24 07.06.24 EGD, grade II esophageal varices. Completely eradicated. Banded. Non-bleeding gastric ulcer with no stigma of bleeding. Biopsied. Portal hypertensive gastropathy. No gross lesions in the first portion of the duodenum. Lesser curvature ulcer biopsy, negative H.Pylori. Chronic ulcer with gastritis. Continue pantoprazole 40 mg BID, start Carafate TID x 8 weeks. Per report by radiologist. 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 EGD 07.06.24, grade II esophageal varices. Completely eradicated. Banded. Non-bleeding gastric ulcer with no stigma of bleeding. Biopsied. Portal hypertensive gastropathy. No gross lesions in the first portion of the duodenum. Lesser curvature ulcer biopsy, negative H.Pylori. Chronic ulcer with gastritis. Continue pantoprazole 40 mg BID, start Carafate TID x 8 weeks. Per GI report. Medications related to this diagnosis: pantoprazole 40 mg twice daily, lactulose 30 mill once daily, Carvedilol, rifaximin: Medications on hold by GI physician: cranberry, coenzyme Q10, apple cider vinegar Smoking Status: Former smoker Diagnosis Diagnosis: Dysphagia Pain Is pain an issue with your current prescribed condition?: Yes Personal Preferred language: Greek Patient Allergies Allergies Allergies: Allergies ciprofloxacin (From Cipro) Allergy (Verified 07/15/24 09:57) Other ciprofloxacin HCl (From Cipro) Allergy (Verified 07/15/24 09:57) Other metronidazole Allergy (Verified 07/15/24 09:57) Other Penicillins (PCN) Allergy (Verified 07/15/24 09:57) Other Sulfa (Sulfonamide Antibiotics) Allergy (Verified 07/15/24 09:57) Rash [id number] Reductase Inhibitor Adverse Reaction (Verified 07/15/24 09:57) Other cant walk Subjective Dysphagia Symptoms Reported Symptoms/Problems with: Choking, Difficulty Swallowing Solids, Difficulty Swallowing Liquids, Difficulty Swallowing Pills and Food gets stuck Current Diet Solids Current Diet: Regular Other: small bites for meats Current Diet Liquids Current Liquids: Thin Objective Dysphagia Administered by Administered by: Self Thin Liquids Administred via: Cup Soft & Bite sized (Mechanical) Administered via: Cup Oral Preparation: WNL Oral Transit: WNL Bolus clearance: fully cleared Gagging: No Cough: none observed/unable to assess Pharyngeal phase: suspect pharyngeal deficits Patient Report: No deficits reported today. Regular Oral Preparation: WNL Oral Transit: WNL Bolus clearance: fully cleared Gagging: No Cough: none observed/unable to assess Patient Report: Patient reported no difficulty today. Comments: Swallowing deficits are intermittent with patient reporting several times a week she will have coughing episodes on foods or liquids. Recently, she had one when she started chewing gum. Swallowing Impairment Contributing Factors to Swallowing Impairment: Other Other: possible pharyngeal deficits. Recommendations Swallowing Treatment: Yes Diet Texture Recommendations Solids: Regular (Level 7) Liquids: Thin (Level 0) Safety Saftey Precautions/Swallowing Recommendations (Check all that Apply): Upright Position at Least 30 Minutes After Meals and Small Sips & Bites when Eating Results Swallowing Within Normal Limits: No Swallowing Diagnosis: Dysphagia Unspecified (R13.10) Subjective Oral Motor Subjective Dentures ill fitting: No Objective Oral Motor Oral Status Dentition: Upper Dentures Additional: Natural teeth Labial Impairment: WNL Closure: WNL Pucker: WNL Retraction: WNL Alternating Pucker/Retraction: WNL Involuntary Movement noted: No Lingual Impairment: WNL Protrusion: WNL Retraction: WNL Lateralization: WNL Involuntary Movement: No Jaw Impairment: WNL Opening: WNL Closing: WNL Involuntary Movement: No Respiratory Status Respiratory Status: Room Air Swallowing Performance Scale Swallowing Performance Scale Swallowing Performance Scale Result: 2 Within Functional Limit Reference: Neuro-QoL instrument Radiation Oncology Patient Plan Plan Plan: Recommend a FEES (Fiberoptic Endoscopic Evaluation of Swallowing) to visualize structures and determine oropharyngeal function. Deficits are intermittent per the patient and she is in agreement with FEES. Recommendations Treatment Warranted: Yes Treatment Warranted: Dysphagia Progress Prognosis: Good Frequency Additional (Frequency): To be determined after FEES Patient/Family Goal Patient/Family Goal: Patient would like to eat without having to worry if she will choke. Goals that are Established Determination:: Goals will be added/modified as deemed necessary and appropriate. Therapy will be discontinued when results of re-evaluation indicate therapy is no longer needed or lack of progress has been documented. Goal #1-5 Goal #1: Completion of FEES with goals added at that time. Education Patient has Indicated that the Following Identified Educational Needs: None The Patient has indicated that they have no educational or learning abilities that may effect their care.: Yes Patient Instruction Patient Education: Diagnosis and Treatment Plan Person Taught: Patient Response to teaching: Verbalize Understanding
--- NOTE | 2024-10-26 11:35 | HP.SPFEES ---
FEES Patient Information Date of Evaluation: 10/24/24 Time of Evaluation: 10:00 Diagnosis: mild oropharyngeal dysphagia Staff Providing this Care/Treatment:: SARBJIT Direct Billable Minutes: 120 History: Past Medical History:: History of GI bleed, History of diverticulitis, Gastric reflux, Former smoker, History of edema, Hypertension, Diabetes, Migraines, Back pain, History of steroid therapy, Thyroid disease, Gout, Arthritis, Anemia, High cholesterol Barium swallow on 07/25/24 07.06.24 EGD, grade II esophageal varices. Completely eradicated. Banded. Non-bleeding gastric ulcer with no stigma of bleeding. Biopsied. Portal hypertensive gastropathy. No gross lesions in the first portion of the duodenum. Lesser curvature ulcer biopsy, negative H.Pylori. Chronic ulcer with gastritis. Continue pantoprazole 40 mg BID, start Carafate TID x 8 weeks. Per report by radiologist. 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 EGD 07.06.24, grade II esophageal varices. Completely eradicated. Banded. Non-bleeding gastric ulcer with no stigma of bleeding. Biopsied. Portal hypertensive gastropathy. No gross lesions in the first portion of the duodenum. Lesser curvature ulcer biopsy, negative H.Pylori. Chronic ulcer with gastritis. Continue pantoprazole 40 mg BID, start Carafate TID x 8 weeks. Per GI report. Pt reported bilateral thyroid nodules. TX/DX History:: Yes Subjective: Subjective:: Pt arrived for her evaluation and was agreeable to the FEES procedure Current Diet: Drinks/Liquids:: Thin Foods:: Regular Medication Administration:: orally Respiratory Status Observation:: 98 sp O2 Dentition/Oral Hygiene: Observations:: WFL Vocal Quality: Observations:: WNL Cognition: Observations:: WNL Position During FEES: Position During FEES:: Upright Location: In Chair Fiberoptic Endoscope: Size: 3.4 mm Nare Used:: Right Anatomy: Velum Movement: Yes and Symmetrical Nasopharynx Tissue Description: [place] and Moist Secretions: Description:: Thin and Clear Location:: Nasopharynx, Oropharynx and Hypopharynx Phonation: Arytenoid Adduction: WNL Vocal Fold Adduction: WNL Penetration-Aspiration Scale Penetration-Aspiration Scale Thin Liquids by Single Cup Food/Drink Provided:: water Swallow Onset Location:: Pyriform Sinuses PAS Score: PAS Score *1 Comments:: min residue intermittent in the vallecula and pyriform sinus', other trials had no residue Thin Liquids by Sequential Cup Food/Drink Provided:: water Swallow Onset Location:: Vallecula Thin Liquids by Single Straw Food/Drink Provided:: water Swallow Onset Location:: Vallecula PAS Score: PAS Score *1 Puree Textures Food/Drink Provided:: pudding Swallow Onset Location:: Vallecula PAS Score: PAS Score *1 Comments:: min residue - cleared I by a second swallow Minced & Moist Textures Food/Drink Provided:: whipped jello Swallow Onset Location:: Tongue Base PAS Score: PAS Score *1 Comments:: min residue, I cleared by second swallow Soft & Bite Sized Textures Food/Drink Provided:: peaches in liquid Swallow Onset Location:: Pyriform Sinuses PAS Score: PAS Score *1 Comments:: liquid spilled to the pyriform min residue of peaches in the vallecula - I cleared by a 2nd swallow Easy to Chew Textures Food/Drink Provided:: cheese Swallow Onset Location:: Vallecula PAS Score: PAS Score *1 Comments:: mod residue in vallecula added during 2nd bite - cleared with a second swallow and liquid wash Regular Textures Food/Drink Provided:: Frosted mini wheats Swallow Onset Location:: Vallecula PAS Score: PAS Score *1 Comments:: mod residue in the vallecula - partially cleared by a second swallow. Cleared with a liquid wash. Diagnosis/Impressions Diagnosis: mild oropharyngeal dysphagia Swallowing Impairment: Premature Posterior Loss and Decreased Pharyngeal Contraction Recommendations Diet: Regular Textures and Thin Liquids Medication Administration:: Whole with liquids Compensatory Strategies: Small Bites, Multiple Swallows, Alternate bites/solids and sips/liquids, Sitting upright and Minimize/decrease distractions Recommend Repeat Instrumental Swallow Assessment: TBD Comments: *2-3 bites per sip with soft textures 1 bite per sip with dry textures Need for Skilled Speech Therapy Services: Yes Education Completed: 1. Described result of evaluation. and 2. Pt understands evaluation & agrees with goals and treatment plan. Frequency Additional (Frequency): One education session and one session in 4-6 weeks to follow up Goals that are Established Patient/Family Goal: Patient would like to eat without having to worry if she will choke. Determination:: Goals will be added/modified as deemed necessary and appropriate. Therapy will be discontinued when results of re-evaluation indicate therapy is no longer needed or lack of progress has been documented. Goal #1: Completion of FEES with goals added at that time. Goal #2: Pt will utilize compensatory strategies (alt. sips and bites, small bites/sip, seated upright, minimize distractions, and multiple swallows) and tolerate least restrictive diet with no overt s/s of aspiration/penetration to aid in safe consumption of solid/liquids independently.
--- NOTE | 2025-04-17 11:45 | HP.SP.DC ---
ST Discharge Summary Discharged: Discharge: Krista Lopez is discharged from [facility] as of December 26, 2024, as she met her goals of independent use of compensatory strategies as well as completion of oropharyngeal exercises. She reported that her swallowing was better, but she continued to cough and reported sometimes it was ?even on air?. She stated she was coughing much less while eating and drinking and her agreed. She is discharged at this time as she is independent with her abilities. Please see daily notes and reports for complete details. Thank you for allowing me to participate in the care of this patient.
== END 2024-12-26 19:00 | disposition home or self-care (01) ==
LOC: SP 09:00
PROVIDERS: PCP Family Medicine; Referring Provider Internal Medicine; Visit Provider Internal Medicine
DX: I85.10 Secondary esophageal varices without bleeding (principal); R13.10 Dysphagia, unspecified
CPT/HCPCS: 92526; 92610; 92612

== ENCOUNTER → 2024-12-30 | Outpatient (CLI) | payer MEDICARE, BC, SELFPAY | END | disposition home or self-care (01) | LOC: LABSPEC 10:27 | PROVIDERS: PCP Family Medicine; Referring Provider Internal Medicine; Visit Provider Internal Medicine | DX: K92.2 Gastrointestinal hemorrhage, unspecified (principal); I85.10 Secondary esophageal varices without bleeding | CPT/HCPCS: 82274 ==

== ENCOUNTER 2025-02-27 05:20 | Day surgery (SDC) | payer MEDICARE, BC, SELFPAY ==
[2025-02-27] VITALS (8 sets, daily range): BP systolic 102–108; BP diastolic 63–69; PULSE 73–81; RESP 14–20; TEMP 36.2–36.6; O2SAT 93–98; BMI 31.0
[2025-02-27] MEDS: Lactated Ringers 1,000 ML 15 ML IV (06:08)
--- NOTE | 2025-02-27 06:19 | PRE.ANES_ITS ---
ASA Classification* ASA Classification ASA Classification: 2 Assessment & Plan Anesthesia* Anesthesia Assessment Anesthesia Assessment: Discussed sedation and/or anesthesia options, risks, benefits, and alternatives with patient/parents/legal guardian/POA. Questions invited. The patient/parents/legal guardian/POA seems to understand and agrees to proceed with anesthesia plan. Reviewed the physical assessment, medical history, allergy history and patient home medications list prior to surgery/procedure/anesthetic and documented any changes. Performed airway and anesthesia risk assessments. Anesthesia Type Anesthesia Type: MAC History Source History Obtained from:: Patient and Chart Anesthesia Focused Assessment* Temperature: 97.7 F Pulse Rate: 77 Blood Pressure: 102/65 Respiratory Rate: 18 Pulse Ox: 98 Oxygen Delivery Method: Room Air Airway Assessment Mouth opens: >3 cm Mallampati Score: I Teeth Condition: Dentures (Patient has full upper dentures. They are out.) Neck Range of motion (ROM): Full ROM Focused Labs Anesthesia Preop lab: CBC WBC 4.7 K/mm3 (4.4-11.0) 12/24/24 10:12/24/24 RBC 3.67 M/mm3 (4.2-5.4) L 12/24/24 10:12/24/24 Hgb 8.0 g/dL (12.0-15.0) L 12/24/24 10:12/24/24 Hct 29.6 % (37-47) L 12/24/24 10:12/24/24 Plt Count 68 K/mm3 (150-450) L 12/24/24 10:12/24/24 CHEMISTRY Potassium 4.1 mmol/L (3.3-5.1) 12/24/24 10:12/24/24 Sodium 138 mmol/L (133-145) 12/24/24 10:12/24/24 Magnesium 2.0 mg/dL (1.6-2.6) 01/19/23 05:35 01/19/23 BUN 12 mg/dL (4-19) 12/24/24 10:12/24/24 Creatinine 0.65 mg/dL (0.70-1.20) L 12/24/24 10: Glucose 282 mg/dL (70-99) H 12/24/24 10:26 12/24/24 POC Glucose 122 mg/dL (74-106) H 11/09/24 14:14 11/09/24 TSH 2.39 uIU/mL (0.358-3.74) 04/19/20 07:25 COAG PT 13.6 SECONDS (11.7-14.9) 12/24/24 10:26 Pre-Assessment Diagnosis/Proposed Procedure Planned Operative Procedure(s): EGD Anesthesia History 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 When Was Last Pacemaker Check QUESTION #4 FULL TEXT: You/Your Family Experience fever (hyperthermia) with Anesthesia Last Oral Intake Last Oral intake: Last Oral Intake NPO since 19:00 02/27/25 05:59 Meds taken in AM with sips of Yes 02/27/25 05:59 water? Meds patient instructed to take am of surgery Any additional information?: Yes Meds taken in AM with sips of water?: Yes PONV PONV - vocational training instructor: PONV - vocational training instructor Female Yes 02/23/25 09:02 HX of Motion Sickness No 02/23/25 09:02 HX of N/V After Surgery No 02/23/25 09:02 Non-Smoker Yes 02/23/25 09:02 Duration of Surgery greater No 02/23/25 09:02 than 60 minutes Number of Risk Factors 2 02/23/25 09:02 PONV Score Moderate Risk 02/23/25 09:02 Height & Weight Height & Weight: Anesthesia: Height & Weight Height 4 ft 11 in 02/27/25 05:59 Weight: 69.7 kg 02/27/25 05:59 Body Mass Index (BMI) 31.0 02/27/25 05:59 Respiratory Assessment Respiratory Assessment - vocational training instructor: Respiratory Tract Infection Hx - vocational training instructor Hx Respiratory Tract Infection No 02/23/25 09:02 STOP Sleep Apnea STOP Sleep Apnea - vocational training instructor: STOP Sleep Apnea - vocational training instructor Hx Hypertension Yes 02/23/25 09:02 Hx Sleep Apnea No 02/23/25 09:02 CPAP BIPAP Do you snore loudly (louder No 02/23/25 09:02 than talking or can be heard Do you often feel tired/ No 02/23/25 09:02 fatigued/ sleepy during daytime? Has anyone observed you stop No 02/23/25 09:02 breathing during sleep? STOP Results Negative 02/23/25 09:02 QUESTION #5 FULL TEXT : Do you snore loudly (louder than talking or can be heard through closed doors)? 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 Specify any problems Hx of Preganancy in last 3 No 02/23/25 09:02 Months Nurse Filling Out Transfusion VLEHMAN 02/23/25 09:02 & Questions: Date: 02/23/25 02/23/25 09:02 Time: 09:04 02/23/25 09:02 Patient unable to answer at this time (ie. confused, unrespo /Reproduction History /Reproductive History - vocational training instructor: /Reproductive Hx- vocational training instructor Hx Now Gestational Age (in weeks): EDC: Hx Hx Para Hx Section SAB No 11/07/24 08:57 Active Medications Active Medications: Current Medications Generic Name Dose Route Start Last Admin Trade Name Freq PRN Reason Stop Dose Admin Lactated Ringer's 1,000 mls @ 15 mls/hr 02/27/25 05:45 02/27/25 06:08 IV 15 mls/hr .Q48H WESLEY Administration PFSH Medical History Back pain Wears glasses Thyroid disease Gout Arthritis Anemia High cholesterol History of GI bleed History of diverticulitis Gastric reflux Former smoker History of edema History of echocardiogram History of stress test Hypertension Diabetes Migraines Home Medications Medication Instructions Recorded Last Taken Type rizatriptan 10 mg tablet 10 mg PO PRN PRN Migraine He adache 12/28/13 Unknown History Lactobacillus acidophilus 10 mg PO DAILY Check with pr imary 01/18/23 02/19/25 History (Acidophilus capsule) doctor allopurinol 100 mg tablet 100 mg PO DAILY Check with p rimary 01/18/23 02/26/25 History doctor cyclosporine 0.05 % eye drops in a 1 drp ophthalmic (e ye) BID health 01/18/23 02/26/25 History dropperette (Restasis) maintenance erythromycin 5 mg/gram (0.5 %) eye 1 applic ophthalmic (eye) QHS 01/18/23 02/26/25 History ointment health maintenance ezetimibe 10 mg tablet 10 mg PO DAILY Check with pr imary 01/18/23 02/26/25 History doctor fluorometholone 0.1 % eye 1 drp ophthalmic (eye) BID h ealth 01/18/23 02/26/25 History drops,suspension maintenance gabapentin 400 mg tablet 800 mg PO QHS health mainten ance 01/18/23 02/26/25 His tory galcanezumab-gnlm 120 mg/mL 120 mg subcut QMONTH Check with 01/18/23 02/24/25 History subcutaneous pen injector primary doctor (Emgality Pen) metformin 1,000 mg tablet 1,000 mg PO BID diabetic 12/1111/08/24 History multivitamin with minerals 2 tab PO DAILY Check with p rimary 01/18/23 02/19/25 History (Hair,Skin and Nails tablet) doctor zdsxnnkrxsxm-Lh-qbcj-minerals 18 2 tab PO DAILY health maintenance 01/18/23 02/19/25 History mg-0.4 mg tablet vit C 250 mg-vit E 90 mg-zinc 40 1 tab PO BID Check wi th primary 01/18/23 Unknown History mg-copper 1 gz-fpjbna-ddwdvp doctor capsule (PreserVision AREDS-2) magnesium 200 mg tablet 200 mg PO DAILY Check with p rimary 07/04/24 02/19/25 History doctor lactulose 20 gram/30 mL oral 20 g PO QDAY 07/15/2409/12 History solution spironolactone 25 mg tablet 25 mg PO DAILY 1 month #30 tabs 07/15/24 02/26/25 Rx rifaximin 550 mg tablet (Xifaxan) 550 mg PO BID 30 day s #60 tabs 09/28/24 02/26/25 Rx ascorbic acid (vitamin C) 500 mg 500 mg PO BID 1 month #60 tabs 12/29/24 02/19/25 Rx chewable tablet dulaglutide 3 mg/0.5 mL 4.5 mg subcut TH Check with 12/29/24 02/09/25 History subcutaneous pen injector primary doctor (Trulicity) elderberry fruit 350 mg capsule 700 mg PO QDAY 5 02/19/25 History ferrous sulfate 325 mg (65 mg 325 mg PO QDAY 1 month # 30 tabs 12/29/24 02/19/25 Rx iron) tablet levothyroxine 75 mcg tablet 75 mcg PO QDAY 1 month #30 tabs 12/29/24 02/27/25 Rx pantoprazole 40 mg tablet,delayed 40 mg PO QDAY 02/27/25 History release vit C 62.5 mg-vit D3 15 mcg-zinc 2 tab PO QDAY 5 02/19/25 History 2.75 mg-herbal no.358 chewable tablet ([employer]) carvedilol 6.25 mg tablet 6.25 mg PO BID 1 month #60 t abs 01/19/25 02/27/25 Rx Allergy/AdvReac Type Severity Reaction Status Date / Time ciprofloxacin (From Cipro) Allergy Other Verified 02/27/25 05:56 ciprofloxacin HCl (From Allergy Other Verified 02/27/25 05:56 Cipro) metronidazole Allergy Other Verified 02/27/25 05:56 Penicillins (PCN) Allergy Other Verified 02/27/25 05:56 Sulfa (Sulfonamide Allergy Rash Verified 02/27/25 05:56 Antibiotics) Nnrwlpe-QSL-AaG Reductase AdvReac Other Verified 02/27/25 05:56 Inhibitor Family History Grandfather Diabetes Grandmother Diabetes Father Heart problem Mother CVA (cerebral vascular accident) Surgical History History of esophagogastroduodenoscopy (EGD) Hx of esophagogastroduodenoscopy Hx of tonsillectomy History of Status post left foot surgery Social History Smoking Status: Never smoker alcohol intake: never substance use type: does not use Review of Systems (Anesthesia) ROS Narrative System reviewed and no additional complaints, except as documented.
--- NOTE | 2025-02-27 06:41 | PCM.HP.STD ---
HPI - General General Date of Admission: 02/27/25 Date of Service: 02/27/25 Chief Complaint: dysphagia HPI Narrative JAVON CAMPBELL, is a 69 F who presents for the evaluation of dysphagia *[facility] hospitalization 01.18.23-01.21.23 for upper GIB with hematemesis with nausea and weakness. GI consulted 01.19.23. CT abd/pel 01.18.23 hepatomegaly with cirrhotic changes; stool throughout colon; enhancing nodule of duodenum [id number]. EGD 01.19.23 five columns oozing grade III varices upper/middle/lower esophagus, banded; three bleeding AVM in stomach; one non-bleeding duodenal ulcer. No specimens collected MRI 01.21.23 cirrhotic liver with splenomegaly; duodenal enhancement measuring 1.5cm. OV 6.. with acidic stomach for which she has used PPI for 10 years. With lactulose BM daily, loose. reports forgetfulness. Denies sleep disturbance, jaundice, bleeding, pruritis. US 6..23 without ascites. EGD 04.08.2323 Grade II varices of middle/lower third esophagus, banded; small hiatal hernia; erythema with bleeding on lesser curvature of stomach, gastritis; 5mm mucosal polypoid OV 7.10.23 with improvement of nausea frequency. She did reduce lactulose QD with 2-3 BM/day. Confusion/brain fog has improved per . Notes increased cough with liquids but not consistently. Continues with nadolol and PPI EGD 08.10.23- Grade II esophageal varices, incompletely eradicated. Banded; small amount of food in stomach. No specimines collected. OV 11.27.23- Pt is doing well since last visit. Reports intermittent postprandial RUQ pain and nausea. Takes Lactulose QD with 2-3 complete BM a day. Denied any edema, confusion/ brain fog or issues with sleep. Continues PPI with minimal heartburn. MELD Na score is 8. C/o mild upper quadrant abdominal pain adjacent with the food on lactulose but lactulose makes her more nauseous but no vomiting, burping and gaseous feeling. OV 2.14.24- Nausea, indigestion, and upper mid to LUQ abdomen abdominal pain after eating certain foods in the evening, attempting keep away from triggers. She states that food stays longer with burping and air/gas. Occasional Tums PRN with success. Nausea after taking lactulose improved. Loose stool about once daily. She takes lactulose 30 mL once daily. Mild swelling in feet. Gabapentin prescribed by neurologist effective sleep aide. Denies confusion, brain fog and BLE edema. Received correspondence from medical insurance prior auth needed Xifaxan through [employer]. CT abd/pel w/wo 12.16.23- Hepatomegaly and diffuse fatty infiltration of the liver Gastric emptying study 02.17.24- Abnormal, 102.96 mins 5.05.11 MELD na- 7 OV 03.07.24- Pt well since last visit. Continues to have nausea and RUQ abdominal discomfort/pressure like fist pressing. States she takes Lactulose once a day and BM are normal. She was able to get the Xifaxan. Denies dizziness, weakness, confusion, and swelling. 06.07.24- MELDNa, 8 07.06.24 EGD, grade II esophageal varices. Completely eradicated. Banded. Non-bleeding gastric ulcer with no stigma of bleeding. Biopsied. Portal hypertensive gastropathy. No gross lesions in the first portion of the duodenum. Lesser curvature ulcer biopsy, negative H.Pylori. Chronic ulcer with gastritis. Continue pantoprazole 40 mg BID, start Carafate TID x 8 weeks. OV 07.15.24- Since recent EGD, difficulty swallowing and chest heaviness. Nausea and heartburn before or after meals. No acute concerns. Denies dizziness, weakness, confusion or swelling. Need refill of iron tabs. Patient taking PPI twice daily and sucralfate 09.20.24MELD na 6, Barium swallow 07.25.24 OV 09.28.24 Pt here for f/u and reports trouble swallowing. Dysphagia with solid food/liquid food and 1 time gummy was stuck in the throat. And denies any edema, confusion/brain fog or sleep issues. Continues taking pantoprazole, lactulose, and Xifaxan daily. EGD 11.09.24- - Grade II esophageal varices. Incompletely eradicated. Banded. - Portal hypertensive gastropathy. - Chronic duodenitis. Biopsied. no pathologic diagnosis. RUQ Liver US; Elastography 10.14.24- liver measures 16.8 cm. increased echogenicity consistent with fatty infiltration. Median liver stiffness measured 10 kPa F2-F3 Metavir score. LUQ ABD US- Mild splenomegaly, spleen measures 13.3 cm x 5.2 cm x 6.3 cm. Labs 3.8.25- INR 1.0. Sod 138. Creatinine 0.65. Bili 0.33. MELD 6 OV 3.13.25- Fatigued. D/C from speech therapy with some improvement in swallowing. Was given exercises to continue at home. Continued occasional heartburn, pantoprazole 40 BID and diet changes helpful. Occ brief episodes nausea, crackers or sprite helpful. Continued RUQ pain unchanged. . [facility] Medical History Back pain Wears glasses Thyroid disease Gout Arthritis Anemia High cholesterol History of GI bleed History of diverticulitis Gastric reflux Former smoker History of edema History of echocardiogram History of stress test Hypertension Diabetes Migraines Home Medications Medication Instructions Recorded Last Taken Type rizatriptan 10 mg tablet 10 mg PO PRN PRN Migraine Headache 12/28/13 Unknown History Lactobacillus acidophilus 10 mg PO DAILY Check with primary 01/18/23 02/19/25 History (Acidophilus capsule) doctor allopurinol 100 mg tablet 100 mg PO DAILY Check with primary 01/18/23 02/26/25 History doctor cyclosporine 0.05 % eye drops in a 1 drp ophthalmic (eye) BID health 01/18/23 02/26/25 History dropperette (Restasis) maintenance erythromycin 5 mg/gram (0.5 %) eye 1 applic ophthalmic (eye) QHS 01/18/23 02/26/25 History ointment health maintenance ezetimibe 10 mg tablet 10 mg PO DAILY Check with primary 01/18/23 02/26/25 History doctor fluorometholone 0.1 % eye 1 drp ophthalmic (eye) BID health 01/18/23 02/26/25 History drops,suspension maintenance gabapentin 400 mg tablet 800 mg PO QHS health maintenance 01/18/23 02/26/25 History galcanezumab-gnlm 120 mg/mL 120 mg subcut QMONTH Check with 01/18/23 02/24/25 History subcutaneous pen injector primary doctor (Emgality Pen) metformin 1,000 mg tablet 1,000 mg PO BID diabetic 01/18/23 11/08/24 History multivitamin with minerals 2 tab PO DAILY Check with primary 01/18/23 02/19/25 History (Hair,Skin and Nails tablet) doctor kpvpelkattzs-Ls-uquv-minerals 18 2 tab PO DAILY health maintenance 01/18/23 02/19/25 History mg-0.4 mg tablet vit C 250 mg-vit E 90 mg-zinc 40 1 tab PO BID Check with primary 01/18/23 Unknown History mg-copper 1 wc-zridrj-zfrknn doctor capsule (PreserVision AREDS-2) magnesium 200 mg tablet 200 mg PO DAILY Check with primary 07/04/24 02/19/25 History doctor lactulose 20 gram/30 mL oral 20 g PO QDAY 07/15/24 02/26/25 History solution spironolactone 25 mg tablet 25 mg PO DAILY 1 month #30 tabs 07/15/24 02/26/25 Rx rifaximin 550 mg tablet (Xifaxan) 550 mg PO BID 30 days #60 tabs 09/28/24 02/26/25 Rx ascorbic acid (vitamin C) 500 mg 500 mg PO BID 1 month #60 tabs 12/29/24 02/19/25 Rx chewable tablet dulaglutide 3 mg/0.5 mL 4.5 mg subcut TH Check with 12/29/24 02/09/25 History subcutaneous pen injector primary doctor (Trulicity) elderberry fruit 350 mg capsule 700 mg PO QDAY 12/29/24 02/19/25 History ferrous sulfate 325 mg (65 mg 325 mg PO QDAY 1 month #30 tabs 12/29/24 02/19/25 Rx iron) tablet levothyroxine 75 mcg tablet 75 mcg PO QDAY 1 month #30 tabs 12/29/24 02/27/25 Rx pantoprazole 40 mg tablet,delayed 40 mg PO QDAY 12/29/24 02/27/25 History release vit C 62.5 mg-vit D3 15 mcg-zinc 2 tab PO QDAY 12/29/24 02/19/25 History 2.75 mg-herbal no.358 chewable tablet ([employer]) carvedilol 6.25 mg tablet 6.25 mg PO BID 1 month #60 tabs 01/19/25 02/27/25 Rx Allergy/AdvReac Type Severity Reaction Status Date / Time ciprofloxacin (From Cipro) Allergy Other Verified 02/27/25 05:56 ciprofloxacin HCl (From Allergy Other Verified 02/27/25 05:56 Cipro) metronidazole Allergy Other Verified 02/27/25 05:56 Penicillins (PCN) Allergy Other Verified 02/27/25 05:56 Sulfa (Sulfonamide Allergy Rash Verified 02/27/25 05:56 Antibiotics) Dmfkmgv-NYA-GkF Reductase AdvReac Other Verified 02/27/25 05:56 Inhibitor Family History Grandfather Diabetes Grandmother Diabetes Father Heart problem Mother CVA (cerebral vascular accident) Surgical History History of esophagogastroduodenoscopy (EGD) Hx of esophagogastroduodenoscopy Hx of tonsillectomy History of Status post left foot surgery Social History Smoking Status: Never smoker alcohol intake: never substance use type: does not use ROS Constitutional Constitutional: Denies fatigue, fever(s), poor appetite, weight gain or weight loss Gastrointestinal Gastrointestinal: Denies belching, bloating, change in bowel habits, change in stool character, chewing difficulty, coffee ground emesis, constipation, cramping, diarrhea, dyspepsia, dysphagia, early satiety, excessive flatus, fecal incontinence, heartburn, hematemesis, hematochezia, hemorrhoids, loose stools, melena, nausea, odynophagia, rectal bleeding, tenesmus, vomiting or weight changes Vital Signs Vital Signs Vital Signs: 02/27/25 05:59 02/27/25 05:59 02/27/25 06:26 Temperature 97.7 F L 97.7 F L Temperature Source Temporal Pulse Rate 77 77 Respiratory Rate 18 18 Respiratory Pattern Normal Blood Pressure 102/65 102/65 Blood Pressure Mean 77 Blood Pressure Source Monitor Blood Pressure Position Semi-Fowlers Blood Pressure Location Left Arm Pulse Ox 98 98 Oxygen Delivery Method Room Air Room Air Weight Weight: 153 lb 10.595 oz Body Mass Index (BMI) 31.0 Physical Exam Const alert, oriented x3, no apparent distress and healthy appearing General Appearance: cooperative GI normal to inspection, nondistended, normoactive bowel sounds, soft to palpation, non-tender and non-distended Percussion: normal to percussion Rectal Exam: deferred Assessment & Plan Assessment/Plan (1) Dysphagia: (2) Gastroparesis: (3) Esophageal varices: QUALIFIERS: Esophageal varices type: secondary Esophageal varices bleeding: without bleeding Qualified Code(s): I85.10 - Secondary esophageal varices without bleeding (4) Cirrhosis: (5) Thrombocytopenia: (6) GI (gastrointestinal bleed): PLAN: Assessment and Plan Assessment and Plan (1) Cirrhosis: Status: Chronic Plan: 67-year-old with nonalcoholic steatohepatitis decompensated cirrhosis with MELD sodium score 6 on December 24, 2024 class CTP A, 5 points. The patient had variceal bleed, grade 3 to grade had recent EGD in June 2024 which showed grade 2 esophageal varices completely eradicated, banded. Nonbleeding gastric ulcer. PHG. Negative for H. pylori. She is on pantoprazole 40 mg twice daily. Patient completed sucralfate. She takes lactulose 30 mill once daily. Labs reviewed from December 2024. Glucose is 282. A1c in November was also elevated 6.9%. Her baseline nausea is only 6.1 to 6.5%. On metformin. Anemia of chronic disease and iron versus anemia. Hemoglobin dropped and she is pale, H&H 8.0/29.6%. Ferrous sulfate advised every other day along with vitamin C Last CT abdomen, triple phase, November 2023 and MRI abdomen/pelvis from January 2023 were reviewed. Cirrhotic changes but no specific mass reported. Borderline splenomegaly. Continue spironolactone 25 mg daily, carvedilol 6.25 mg twice daily. Ferrous sulfate increased to 325 mg every day along with vitamin C. Continue lactulose and Xifaxan Follow-up labs ordered in 4-month (2) Esophageal varices: Status: Chronic Qualifiers: Esophageal varices bleeding: without bleeding Esophageal varices type: secondary Qualified Code(s): I85.10 - Secondary esophageal varices without bleeding Plan: EGD reviewed with the patient along with a diagram. Discussed with Dr. Curtis. In EGD on 11/09/2024 Impressions : - Grade II esophageal varices. Incompletely eradicated. Banded. - Portal hypertensive gastropathy. - Chronic duodenitis. Biopsied. Recommendations : - Discharge patient to home. - Resume previous diet. - Continue present medications. - Await pathology results. - Repeat upper endoscopy in 4 months for surveillance. SCHEDULED ON 02/27/25 Pathology shows chronic duodenitis PPI changed from 40 mg twice daily to once daily probably over suppression of gastric acid therefore decreased absorption of ferrous sulfate (3) Dysphagia: Status: Chronic Plan: Patient has been cleared from the speech therapist and advised to do speech/swallow exercises at home Orders: Orders Stool Occult Blood iFOB 2 Weeks I85.10 - Secondary esophageal varices without bleeding, K92.2 - Gastrointestinal hemorrhage, unspecified Medications: New levothyroxine 75 mcg PO QDAY 1 month 30 tabs 3RF ascorbic acid (vitamin C) 500 mg PO BID 1 month 60 tabs 2RF Changed From ferrous sulfate 325 mg PO Q OTHER DAY 1 month 30 tabs 5RF To ferrous sulfate 325 mg PO QDAY 1 month 30 tabs 5RF From pantoprazole 40 mg PO BID To pantoprazole 40 mg PO QDAY Discontinued levothyroxine Discontinued Reason: Discontinued by PCP/other physicians 88 mcg PO DAILY
--- NOTE | 2025-02-27 07:04 | OP.EGD_ITS ---
Patient Name: Kritsa Lopez Procedure Date: 02/27/2025 6:35 AM Date of : 1955 Age: 69 Procedure: Upper GI endoscopy Indications: For therapy of esophageal varices Providers: Toño Curtis DO Referring MD: Rian Julian Medicines: Monitored Anesthesia Care Patient Profile: This is a 69 year old female. Refer to note in patient chart for documentation of history and physical. Patient has symptoms of dysphagia with solids. Complications: No immediate complications. Procedure: Pre-Anesthesia Assessment: - Prior to the procedure, a History and Physical was performed, and patient medications and allergies were reviewed. The patient is competent. The risks and benefits of the procedure and the sedation options and risks were discussed with the patient. All questions were answered and informed consent was obtained. Patient identification and proposed procedure were verified by the physician in the pre-procedure area. Mental Status Examination: alert and oriented. Airway Examination: normal oropharyngeal airway and neck mobility. Respiratory Examination: clear to auscultation. CV Examination: normal. Prophylactic Antibiotics: The patient does not require prophylactic antibiotics. Prior Anticoagulants: The patient has taken no anticoagulant or antiplatelet agents. ASA Grade Assessment: III - A patient with severe systemic disease. After reviewing the risks and benefits, the patient was deemed in satisfactory condition to undergo the procedure. The anesthesia plan was to use monitored anesthesia care (MAC). Immediately prior to administration of medications, the patient was re-assessed for adequacy to receive sedatives. The heart rate, respiratory rate, oxygen saturations, blood pressure, adequacy of pulmonary ventilation, and response to care were monitored throughout the procedure. The physical status of the patient was re-assessed after the procedure. After obtaining informed consent, the endoscope was passed under direct vision. Throughout the procedure, the patient's blood pressure, pulse, and oxygen saturations were monitored continuously. The Endoscope was introduced through the mouth, and advanced to the second part of duodenum. The upper GI endoscopy was accomplished without difficulty. The patient tolerated the procedure well. Scope In: 6:51:54 AM Scope Out: 6:58:45 AM Total Procedure Duration Time 0 hours 6 minutes 51 seconds Findings: Grade III varices were found in the middle third of the esophagus and in the lower third of the esophagus. They were 15 mm in largest diameter. Two bands were successfully placed with incomplete eradication of varices. There was no bleeding during and at the end of the procedure. Mild portal hypertensive gastropathy was found in the entire examined stomach. No gross lesions were noted in the entire examined duodenum. Impression: - Grade III esophageal varices. Incompletely eradicated. Banded. - Portal hypertensive gastropathy. - No gross lesions in the entire examined duodenum. - No specimens collected. Recommendation: - Discharge patient to home. - Resume previous diet. - Continue present medications. Procedure Code(s): --- Professional --- 41204, Esophagogastroduodenoscopy, flexible, transoral; with band ligation of esophageal/gastric varices CPT copyright 2021 [employer]. All rights reserved. The codes documented in this report are preliminary and upon director of human resources review may be revised to meet current compliance requirements. Toño Curtis DO 02/27/2025 7:03:39 AM This report has been signed electronically. Number of Addenda: 0 Note Initiated On: 02/27/2025 6:35 AM
--- NOTE | 2025-02-27 07:04 | OP.CCLET_ITS ---
02/27/2025 Rian Julian [address] [place] [address] Re : Upper GI endoscopy procedure for Krista Lopez Dear Dr. Julian This procedure was performed on Thursday, February 27, 2025. My impressions and recommendations are as follows: Impressions : - Grade III esophageal varices. Incompletely eradicated. Banded. - Portal hypertensive gastropathy. - No gross lesions in the entire examined duodenum. - No specimens collected. Recommendations : - Discharge patient to home. - Resume previous diet. - Continue present medications. My findings are described in the full procedure note, which is enclosed. If I can be of further assistance, please feel free to contact me at . Sincerely, Toño Curtis, 02/27/2025 7:03:39 AM This report has been signed electronically.
--- NOTE | 2025-02-27 07:12 | PCM.POST.ANE ---
Anesthesia: Postop Eval I Current Vital Signs Temperature: 97.9 F Pulse Rate: 81 Blood Pressure: 104/69 Respiratory Rate: 16 Pulse Ox: 95 Oxygen Delivery Method: Room Air Assessment Airway patent: Yes Spontaneous unlabored respirations: Yes Mental status: Asleep nausea: No Vomiting: No Anesthesia Complication: No Fluid Hydration Crystalloid volume administer (ml): 300 Total IV fluid infused: 300 Progress Note Anesthesia document: Postop Eval 1 completed: Yes
--- NOTE | 2025-02-27 08:03 | PCM.POSTANE2 ---
Anesthesia Postop Eval I Sum Postop Eval Completion status Anesthesia document: Postop Eval 1 completed: Yes Anesthesia Postop Eval I Summary Anesthesia Postop Eval I Summary: Anesthesia Postop Eval I: Assessment Summary Airway patent Yes 02/27/25 07:12 [email or web address] Spontaneous unlabored Yes 02/27/25 07:12 [email or web address] respirations Mental status Asleep 02/27/25 07:12 [email or web address] nausea No 02/27/25 07:12 [email or web address] Vomiting No 02/27/25 07:12 [email or web address] Anesthesia Postop Eval I: Fluid Summary Crystalloid volume administer 300 02/27/25 07:12 [email or web address] (ml) Colloids volume administered ( ml) Blood Product volume administered (ml) Total IV fluid infused 300 02/27/25 07:12 [email or web address] Anesthesia Postop Eval I: Summary Notes Anesthesia Complication No 02/27/25 07:12 [email or web address] Anesthesia Complication Comment: Post-operative progress note Anesthesia: Postop Eval II Evaluation Mental status: Awake and Calm Pain Level: 0 nausea: No Vomiting: No Complications Anesthesia Complication: No
[2025-02-27 12:58] LABS: Bedside Glucose 179 mg/dL (74-106)
== END 2025-02-27 07:49 | disposition home or self-care (01) ==
LOC: EN 05:21 → AC 05:22
PROVIDERS: PCP Family Medicine; Referring Provider Family Medicine; Visit Provider Internal Medicine Gastroenterology
PROC: 0DJ08ZZ Inspection of Upper Intestinal Tract, Via Natural or Artificial Opening Endoscopic (ICD-10-PCS; CPT 43235; principal; 2025-02-27 06:25)
DX: K76.6 Portal hypertension (principal); I85.00 Esophageal varices without bleeding; E11.9 Type 2 diabetes mellitus without complications; R13.10 Dysphagia, unspecified; K21.9 Gastro-esophageal reflux disease without esophagitis; I10 Essential (primary) hypertension; K31.89 Other diseases of stomach and duodenum; Z79.84 Long term (current) use of oral hypoglycemic drugs; Z79.899 Other long term (current) drug therapy
CPT/HCPCS: 43244; 43239; 82962; J2405

== ENCOUNTER → 2025-04-18 | Outpatient (CLI) | payer MEDICARE, BC, SELFPAY ==
[2025-04-18 08:53] LABS: Prothrombin Time (Protime)PT. 13.3 SECONDS (11.7-14.9)
[2025-04-18 09:02] LABS: Hematocrit 33.1 % (37-47); Hemoglobin 9.8 g/dL (12.0-15.0); Immature Granulocytes Count 0.010 X10^3/uL (0.0-0.0); Mean Corp Hgb Conc 29.6 g/dL (32-36); Mean Corpuscular Volume 92.2 fL (81-99); Mean Platelet Vol. 11.7 fl (6.2-12.0); NRBC Flagged by Analyzer 0 % (0-5); POSITIVE COUNT YES; RBC Distribution Width CV 15.5 % (11.6-14.6); RBC Distribution Width SD 50.6 fl (35.1-43.9); Red Blood Count 3.59 M/mm3 (4.2-5.4); White Blood Count 3.5 K/mm3 (4.4-11.0)
[2025-04-18 09:24] LABS: AST(SGOT) 28 U/L (<=31); Alanine Aminotransfer ALT/SGPT 21 U/L (<=34); Albumin, Serum 4.2 g/dL (3.4-4.8); Alkaline Phosphatase 84 U/L (35-104); Anion Gap 16 (5-15); BUN 15 mg/dL (4-19); BUN/Creat Ratio 24.6 RATIO (10-20); Bilirubin, Direct 0.15 mg/dL (0.00-0.30); Calcium,Total 9.2 mg/dL (7.6-11.0); Carbon Dioxide 21.2 mmol/L (21.0-32.0); Chloride 102 mmol/L (98-108); Cholesterol 131 mg/dL (<=200); Ferritin 20 ng/mL (22-378); Globulin 2.6 g/dL (2.2-4.2); Glucose 234 mg/dL (70-99); Low Density Lipoprotein Calc. 50 mg/dL; Potassium 3.8 mmol/L (3.3-5.1); Triglycerides 212 mg/dL; Very Low Density Lipoprotein 42 mg/dL (5-40); cholesterol:hdl ratio screen 3.40
[2025-04-18 10:10] LABS: Iron 59 ug/dL (50-170); Iron Binding Capacity,Total 401 ug/dL (250-450); Iron Binding Capacity,Unsat 342 ug/dL (228-428); LDH 146 U/L (84-246)
[2025-04-18 10:34] LABS: Platelet Count 50 K/mm3 (150-450)
== END | disposition home or self-care (01) ==
LOC: LAB 07:45
PROVIDERS: PCP Family Medicine; Referring Provider Internal Medicine; Visit Provider Internal Medicine
DX: I85.10 Secondary esophageal varices without bleeding (principal); K74.60 Unspecified cirrhosis of liver; E11.9 Type 2 diabetes mellitus without complications; K92.2 Gastrointestinal hemorrhage, unspecified
CPT/HCPCS: 36415; 80053; 80061; 82248; 82728; 83010; 83036; 83540; 83550; 83615; 85025; 85610; 86880

== ENCOUNTER → 2025-05-03 | Outpatient (CLI) | payer MEDICARE, BC, SELFPAY ==
--- NOTE | 2025-05-03 07:18 | US_ITS ---
PROCEDURE: ABD LIMITED W/ ELASTOGRAPHY REASON FOR EXAM: RUQ PAIN Six-month history. COMPARISON: None. TECHNIQUE: Right upper quadrant abdominal ultrasound. [facility] ElastQ Imaging shear wave elastography for non-invasive assessment of liver tissue stiffness. Yes[employer] EPIQ Elite. FINDINGS: LIVER: Size: Unremarkable Length: 16.6 cm Echotexture: Diffusely echogenic suggesting fatty infiltration Contour: Normal Lesions: None identified Elastography: EQI Med: 14.8 kPa EQI Med Rohith: 2.21 m/s IQR/Med: 16 %* GALLBLADDER: No stones sludge wall thickening or tenderness. COMMON BILE DUCT: Normal 4.5 mm. PANCREAS: Normal Visualized portions of the right kidney are unremarkable. No right upper quadrant ascites. US/ABD Limited w/ Elastography IMPRESSION: SEVERE HEPATIC FIBROSIS / CIRRHOSIS Fatty infiltration of the liver. Reference Values: SRU <1.37 m/s (5.7kPa): No to mild fibrosis 1.37 m/s - 2.2 m/s: Moderate to severe fibrosis >2.2 m/s (15kPa): Significant fibrosis / cirrhosis METAVIR Score F2 or higher: 1.34 m/s (5.7kPa) F3 or higher: 1.55 m/s (7.3kPa) F4: 1.80 m/s (10kPa) * If the IQR/Med is >30%, the variance in the measurements is a large and the a ccuracy of the measurement may be in question. Reading Location: [place] [id number]
--- NOTE | 2025-05-03 07:18 | US_ITS ---
PROCEDURE: ABD LIMITED W/ ELASTOGRAPHY REASON FOR EXAM: RUQ PAIN Six-month history. COMPARISON: None. TECHNIQUE: Right upper quadrant abdominal ultrasound. Yes[facility] ElastQ Imaging shear wave elastography for non-invasive assessment of liver tissue stiffness. Yes[employer] EPIQ Elite. FINDINGS: LIVER: Size: Unremarkable Length: 16.6 cm Echotexture: Diffusely echogenic suggesting fatty infiltration Contour: Normal Lesions: None identified Elastography: EQI Med: 14.8 kPa EQI Med Rohith: 2.21 m/s IQR/Med: 16 %* GALLBLADDER: No stones sludge wall thickening or tenderness. COMMON BILE DUCT: Normal 4.5 mm. PANCREAS: Normal Visualized portions of the right kidney are unremarkable. No right upper quadrant ascites. US/ABD Limited w/ Elastography IMPRESSION: SEVERE HEPATIC FIBROSIS / CIRRHOSIS Fatty infiltration of the liver. Reference Values: SRU <1.37 m/s (5.7kPa): No to mild fibrosis 1.37 m/s - 2.2 m/s: Moderate to severe fibrosis >2.2 m/s (15kPa): Significant fibrosis / cirrhosis METAVIR Score F2 or higher: 1.34 m/s (5.7kPa) F3 or higher: 1.55 m/s (7.3kPa) F4: 1.80 m/s (10kPa) * If the IQR/Med is >30%, the variance in the measurements is a large and the a ccuracy of the measurement may be in question. Reading Location: [place] [id number]
== END | disposition home or self-care (01) ==
LOC: US 07:16
PROVIDERS: PCP Family Medicine; Referring Provider Internal Medicine; Visit Provider Internal Medicine
DX: R10.811 Right upper quadrant abdominal tenderness (principal); I85.10 Secondary esophageal varices without bleeding; K74.60 Unspecified cirrhosis of liver; K31.84 Gastroparesis; D69.6 Thrombocytopenia, unspecified
CPT/HCPCS: 76705; 76981

== ENCOUNTER 2025-07-30 12:48 | Emergency (ER) | payer MEDICARE, BC, SELFPAY ==
[2025-07-30 12:48] VITALS: BP 116/58; PULSE 84; RESP 16; TEMP 36.8; O2SAT 100; BMI 37.3
--- NOTE | 2025-07-30 13:15 | RAD_ITS ---
PROCEDURE: KNEE 4 OR MORE VIEWS 07/30/2025 REASON FOR EXAM: INJURY/PAIN TECHNIQUE: Procedure Code: RADKN Modality: DX Procedure: KNEE 4 OR MORE VIEWS Laterality: Obliteration of the suprapatellar fossa consistent with knee effusion. COMPARISON: None. FINDINGS: Bones: No acute bony abnormalities. Joints: Unremarkable. Effusion: Unremarkable. Soft tissues: No soft tissue abnormalities. RAD/Knee 4 or More Views IMPRESSION: No acute osseous abnormalities. Small knee effusion. Reading Location: [id number]
--- NOTE | 2025-07-30 13:24 | EDS_ITS ---
HPI History of Present Illness Chief Complaint: Lower Extremity Injury Detail of Chief Complaint: Patient presents with left knee pain and swelling. Informant: patient Onset/Context/Timing Onset: Weeks (This episode started greater than a week ago. Swelling several days ago) Context: Sudden Onset Timing: Continuous and Waxes and wanes Quality: Patient and swelling Location: Left knee Current Severity: Mild Maximum Severity: Severe Worsened by: Movement and weightbearing Relieved by: Nothing Associated Symptoms Associated Symptoms: No fever or chills. History of gout on allopurinol Narrative Narrative: Patient is a 70-year-old woman. She has history of esophageal variceals, thrombocytopenia, cirrhosis, GI bleed who presents with atraumatic left knee pain. She does have history of gout. She is present on allopurinol. She denies fever, chills night sweats. She complains of pain with any movement of the left knee. The pain started greater than a week ago. Swelling has been since July 26. She has no prior history of knee problems. She denies paresthesia, anesthesia or motor weakness. Prior similar symptoms: No Recent Illness/Hospitalization: No PFSH PFSH Medical History Back pain Wears glasses Thyroid disease Gout Arthritis Anemia High cholesterol History of GI bleed History of diverticulitis Gastric reflux Former smoker History of edema History of echocardiogram History of stress test Hypertension Diabetes Migraines Home Medications ?Medication ?Instructions ?Recorded ?Last Taken ?Type rizatriptan 10 mg tablet 10 mg PO PRN PRN Migraine He adache 12/28/13 Unknown History Lactobacillus acidophilus 10 mg PO DAILY Check with pr imary 01/18/23 02/19/25 History (Acidophilus capsule) doctor allopurinol 100 mg tablet 100 mg PO DAILY Check with p rimary 01/18/23 02/26/25 History doctor cyclosporine 0.05 % eye drops in a 1 drp ophthalmic (e ye) BID health 01/18/23 02/26/25 History dropperette (Restasis) maintenance erythromycin 5 mg/gram (0.5 %) eye 1 applic ophthalmic (eye) QHS 01/18/23 02/26/25 History ointment health maintenance ezetimibe 10 mg tablet 10 mg PO DAILY Check with pr imary 01/18/23 02/26/25 History doctor fluorometholone 0.1 % eye 1 drp ophthalmic (eye) BID h ealth 01/18/23 02/26/25 History drops,suspension maintenance gabapentin 400 mg tablet 800 mg PO QHS [facility] mainten ance 01/18/23 02/26/25 History galcanezumab-gnlm 120 mg/mL 120 mg subcut QMONTH Check with 01/18/23 02/24/25 History subcutaneous pen injector primary doctor (Emgality Pen) metformin 1,000 mg tablet 1,000 mg PO BID diabetic 12/1111/08/24 History multivitamin with minerals 2 tab PO DAILY Check with p rimary 01/18/23 02/19/25 History (Hair,Skin and Nails tablet) doctor svwasapbqmms-Fu-sibh-minerals 18 2 tab PO DAILY health maintenance 01/18/23 02/19/25 History mg-0.4 mg tablet vit C 250 mg-vit E 90 mg-zinc 40 1 tab PO BID Check wi primary 01/18/23 Unknown History mg-copper 1 qs-hhyhnq-hccdcg doctor capsule (PreserVision AREDS-2) magnesium 200 mg tablet 200 mg PO DAILY Check with p rimary 07/04/24 02/19/25 History doctor ascorbic acid (vitamin C) 500 mg 500 mg PO BID 1 month #60 tabs 12/29/24 02/19/25 Rx chewable tablet elderberry fruit 350 mg capsule 700 mg PO QDAY 5 02/19/25 History ferrous sulfate 325 mg (65 mg 325 mg PO QDAY 1 month # 30 tabs 12/29/24 02/19/25 Rx iron) tablet levothyroxine 75 mcg tablet 75 mcg PO QDAY 1 month #30 tabs 12/29/24 02/27/25 Rx pantoprazole 40 mg tablet,delayed 40 mg PO QDAY 02/27/25 History release vit C 62.5 mg-vit D3 15 mcg-zinc 2 tab PO QDAY 5 02/19/25 History 2.75 mg-herbal no.358 chewable tablet (Immune Power) lactulose 10 gram/15 mL oral 15 ml PO BID 1 month #3,7 85 mL 03/15/25 Unknown Rx solution spironolactone 25 mg tablet 25 mg PO DAILY 1 month #30 tabs 03/15/25 Unknown Rx dulaglutide 3 mg/0.5 mL 3 mg subcut TH Check with pr imary 04/24/25 Unknown History subcutaneous pen injector doctor (Matthew) rifaximin 550 mg tablet (Xifaxan) 550 mg PO BID 30 day s #60 tabs 05/15/25 Unknown Rx carvedilol 6.25 mg tablet 6.25 mg PO BID 1 month #60 t abs 07/20/25 Unknown Rx oxycodone 5 mg capsule 5 mg PO Q8H PRN pain 2 days #6 caps 07/30/25 Unknown Rx Allergy/AdvReac Type Severity Reaction Status Date / Time ciprofloxacin (From Cipro) Allergy Other Verified 07/30/25 12:49 ciprofloxacin HCl (From Allergy Other Verified 07/30/25 12:49 Cipro) metronidazole Allergy Other Verified 07/30/25 12:49 Penicillins (PCN) Allergy Other Verified 07/30/25 12:49 Sulfa (Sulfonamide Allergy Rash Verified 07/30/25 12:49 Antibiotics) Pdymene-ITF-GrA Reductase AdvReac Other Verified 07/30/25 12:49 Inhibitor Family History Grandfather Diabetes Grandmother Diabetes Father Heart problem Mother CVA (cerebral vascular accident) Surgical History History of esophagogastroduodenoscopy (EGD) Hx of esophagogastroduodenoscopy Hx of tonsillectomy History of Status post left foot surgery Social History Smoking Status: Never smoker alcohol intake: never substance use type: does not use ROS ROS ED Constitutional Constitutional ED: Denies chills, fever(s), subjective or sweats Cardiovascular Cardiovascular: Denies chest pain or palpitations Respiratory/Chest Respiratory/Chest: Denies cough or dyspnea Musculoskeletal Musculoskeletal: Reports other Details: Left knee pain and swelling only ; Denies arthralgias or myalgias Integumentary Denies rash Neurologic Neurologic: Denies paresthesias or weakness Psychiatric Psychiatric: Denies anxiety or depression Endocrine Endocrinology: Denies cold intolerance or heat intolerance Hematologic/Lymphatic Hematologic/Lymphatic: Reports systems reviewed and no addt'l complaints, except as documented EXAM Physical Exam Const Vital Signs: 07/30/25 12:48 07/30/25 16:48 Temperature 98.2 F 97.8 F Temperature Source Oral Oral Pulse Rate 84 79 Respiratory Rate 16 15 Blood Pressure 116/58 L 126/68 H Blood Pressure Mean 77 87 Pulse Ox 100 98 Oxygen Delivery Method Room Air Room Air Positive well nourished and well developed General Appearance ED: well developed and NAD; Negative for pallor HEENT Reports moist mucous membranes HEENT Narrative: Head is atraumatic and normocephalic. Eyes PERRL and EOMs intact bilaterally General Eye ED: Negative for scleral icterus Resp normal respiratory effort Cardio regular rate and regular rhythm Extremity Extremity Narrative: Left knee is markedly swollen. The patella may be slightly ballotable. There is an obvious effusion. Patient is able to hold her leg in extension against gravity. She is only able to flex to approximately 150 degrees without having significant pain. The knee is warm. There is no erythema. There is no area of induration or lymphangitis. There is no popliteal angle lymphadenopathy. DP pulses palpable. There is no fullness or mass noted the popliteal fossa. There is no pain along distribution deep venous system or palpable cords. There is no leg vein distention. There is no discoloration of the left lower extremity in comparison to the right. Neuro oriented x3, CN's II-XII intact bilaterally and no sensory deficits noted Sensorium / Orientation: alert Psych mental status grossly normal Skin no rashes or lesions noted, no wounds and skin turgor normal General Skin Exam: Negative for jaundice or pallor MDM MDM MDM Narrative Medical decision making narrative: Differential diagnosis is effusion due to osteoarthritis, crystal induced monoarticular arthritis versus pyogenic arthritis. Suspected crystal induced since she has history of gout. Will consent for arthrocentesis. Will inject 1% lidocaine and Kenalog into the knee once the fluid has been aspirated and sent off for appropriate studies. Since pyogenic arthritis is differential will obtain CBC, BMP, ESR and CRP. X-ray was ordered and will review prior to performing arthrocentesis. Patient been informed of risk benefits Lab Data Attestation: I reviewed the patient's lab results. Lab results narrative: White count is low. H&H is low. Platelet count is low. Patient has pancytopenia. Review of prior records indicates she has pancytopenia. Basic metabolic panel is unremarkable. Glucose slight elevated 136 with normal CO2 and a gap. C-reactive protein is elevated 84. ESR is normal. Synovial fluid reveals a elevated white count of 16,000. Predominantly neutrophils. Gram stain revealed 1+ white cells without bacteria. No crystals were seen. Findings are not consistent with septic joint. Will discharge patient. If cultures returned positive we will contact her. Labs: Laboratory Results - last 24 hr 07/30/25 07/30/25 13:42 14:18 WBC 4.1 L RBC 3.95 L Hgb 10.6 L Hct 34.9 L MCV 88.4 MCH 26.8 L MCHC 30.4 L RDW Std Deviation 47.1 H RDW Coeff of Pete 14.6 Plt Count 73 L MPV 11.6 Immature Gran % (Auto) 0.500 Neut % (Auto) 66.5 Lymph % (Auto) 19.8 Irion % (Auto) 8.6 Eos % (Auto) 3.9 Baso % (Auto) 0.7 Absolute Neuts (auto) 2.7 Absolute Lymphs (auto) 0.81 L Nucleated RBC % 0 ESR 29 Sodium 138 Potassium 4.4 Chloride 100 Carbon Dioxide 24.9 Anion Gap 13 BUN 11 Creatinine 0.60 L Estim Creat Clear Calc 62.87 Est GFR (MDRD) Non-Af 97 BUN/Creatinine Ratio 18.5 Glucose 136 H Calcium 9.8 C-React Prot Ext Range 84.40 H Fluid Crystals NO CRYSTALS SEEN Fluid Crystal Source SYNOVIAL Synovial Source LEFT KNEE Synovial Color Yellow Synovial Appearance Cloudy Synovial WBC 16.3220 H Synovial RBC 0.002 H Synovial Tot Cell Ct 16.4440 H Synov Polynuclear WBCs 13.126 Synov Mononuclear WBCs 3.196 Synovial Neutrophils 85 H Synovial Monocytes 15 Synovial Polynuclear % 80.4 Synovial Mononuclear % 19.[address] Comment May follow Radiography Chest X-Ray - ED: Read by ED Physician (4 view x-ray of the left knee was independent reviewed interpreted by me at 1329. Patient has some minimal arthritic changes. There is an effusion noted. The patella is in proper positi on. There is no other significant changes) Diagnostic Testing: Clinical Impression(s) from Imaging Studies Knee X-Ray 07/30/25 13:15 IMPRESSION: No acute osseous abnormalities. Small knee effusion. Reading Location: [facility] Procedures Other Procedures Procedure(s): Arthrocentesis left knee: Patient was explained risk benefits. Consent was signed prior to procedure. She had 1 question that was answered to her satisfaction. Patient was prepped draped sterile manner. Lateral approach was undertaken. Skin was anesthetized 1% lidocaine. Approximately 35 cc of yellow cloudy fluid was aspirated. A 1-10 mixture of Kenalog and 1% lidocaine was infused into the left knee joint. Awaiting results of blood studies and synovial fluid studies. 1423 Discharge Plan Triage Chief Complaint: Lower Extremity Injury ED Provider: Sergey Brennan Dx/Rx/DC Orders Clinical Impression: Effusion of knee joint, left, Pancytopenia, Elevated blood pressure reading without diagnosis of hypertension, Type 2 diabetes mellitus with hyperglycemia, Cirrhosis, Esophageal varices Instructions: ED Fluid on the Knee Prescriptions: New oxycodone 5 mg capsule 5 mg PO Q8H PRN (Reason: pain) 2 Days Qty: 6 0RF No Action elderberry fruit 350 mg capsule 700 mg PO QDAY Immune Power 62.5 mg-15 mcg- 2.75 mg-50 mg tablet,chewable 2 tab PO QDAY levothyroxine 75 mcg tablet 75 mcg PO QDAY 30 Days Qty: 30 3RF ferrous sulfate 325 mg (65 mg iron) tablet 325 mg PO QDAY 30 Days Qty: 30 5RF ascorbic acid (vitamin C) 500 mg tablet,chewable 500 mg PO BID 30 Days Qty: 60 2RF pantoprazole 40 mg tablet,delayed release (DR/EC) 40 mg PO QDAY Trulicity 3 mg/0.5 mL pen injector 3 mg SUBCUT TH rizatriptan 10 MG tablet 10 mg PO PRN PRN (Reason: Migraine Headache) Rx Instructions: 1 tab at onset of headache, may repeat in 2 hours allopurinol 100 mg Tablet 100 mg PO DAILY metformin 1,000 mg tablet 1,000 mg PO BID gabapentin 400 mg Tablet 800 mg PO QHS Emgality Pen 120 mg/mL Pen Injector 120 mg SUBCUT QMONTH erythromycin 5 mg/gram (0.5 %) ointment 1 applic ophthalmic (eye) QHS Patient Comments: APPLY TO BOTH EYES NIGHTLY fluorometholone 0.1 % drops,suspension 1 drp ophthalmic (eye) BID Patient Comments: 1 drop into both eyes twice a day INSTILL 1 DROP INTO EACH EYE TWICE DAILY Hair,Skin and Nails Tablet 2 tab PO DAILY Acidophilus Capsule 10 mg PO DAILY cyclosporine [Restasis] 0.05 % dropperette 1 drp ophthalmic (eye) BID Patient Comments: INSTILL 1 DROP INTO EACH EYE TWICE DAILY ffixpnjyenia-Xo-hbfw-minerals 18-0.4 mg Tablet 2 tab PO DAILY PreserVision AREDS-2 250-90-40-1 mg Capsule 1 tab PO BID ezetimibe 10 mg tablet 10 mg PO DAILY Patient Comments: TAKE 1 TABLET BY MOUTH ONCE DAILY magnesium 200 mg tablet 200 mg PO DAILY spironolactone 25 mg tablet 25 mg PO DAILY 30 Days Qty: 30 7RF Rx Instructions: Hold if serum potassium is more than 5.0. lactulose 10 gram/15 mL solution 15 ml PO BID 30 Days Qty: 3785 1RF Rx Instructions: Titrate the frequency to 1-3 times per day to have 1 BM per day Xifaxan 550 mg tablet 550 mg PO BID 30 Days Qty: 60 6RF carvedilol 6.25 mg tablet 6.25 mg PO BID 30 Days Qty: 60 6RF Rx Instructions: must administer with a meal/food Hold for heart less than 50 or systolic blood pressure less than 100 mmHg. Primary Care Provider: Rian Julian Referrals: Rian Julian MD [Primary Care Provider, Family Practice] - 3-5 Days if not improving Activity Restrictions/Additional Instructions: Return if you have a temperature greater than 100, shaking chills or pain is unbearable and unable to walk. Print Language: Tamazight Disposition Disposition: Home, Self Care
[2025-07-30 14:05] LABS: Hematocrit 34.9 % (37-47); Hemoglobin 10.6 g/dL (12.0-15.0); Immature Granulocytes Count 0.020 X10^3/uL (0.0-0.0); Mean Corp Hgb Conc 30.4 g/dL (32-36); Mean Corpuscular Volume 88.4 fL (81-99); Mean Platelet Vol. 11.6 fl (6.2-12.0); NRBC Flagged by Analyzer 0 % (0-5); POSITIVE COUNT YES; Platelet Count 73 K/mm3 (150-450); RBC Distribution Width CV 14.6 % (11.6-14.6); RBC Distribution Width SD 47.1 fl (35.1-43.9); Red Blood Count 3.95 M/mm3 (4.2-5.4); White Blood Count 4.1 K/mm3 (4.4-11.0)
[2025-07-30 14:24] LABS: Anion Gap 13 (5-15); BUN 11 mg/dL (4-19); BUN/Creat Ratio 18.5 RATIO (10-20); CRP 84.40 mg/L (0.0-3.0); Calcium,Total 9.8 mg/dL (7.6-11.0); Carbon Dioxide 24.9 mmol/L (21.0-32.0); Chloride 100 mmol/L (98-108); Estimated Creatinine Clearance 62.87 ml/min (50-250); Glucose 136 mg/dL (70-99); Potassium 4.4 mmol/L (3.3-5.1)
[2025-07-30] MEDS: Lidocaine 1% (20 ml mdv) 20 ML Vial 10 ML INFILT (14:28)
[2025-07-30 14:48] LABS: Synovial Fld Mononuclear WBC % 19.6 %; Synovial Fld Polynuclear WBC % 80.4 %
[2025-07-30 15:08] LABS: RBC /Synovial Fluid 0.002 10^6/uL (0)
[2025-07-30 15:09] LABS: Total Cell Count Synovial Fld 16.4440 10^3/uL (0.000-0.000); WBC / Synovial Fluid 16.3220 10^3/uL (0.000-0.002)
[2025-07-30 15:14] LABS: AUTO B FLUID DILUENT BKGD CT WBC <0.1 RBC <0.01 (W<.1,R<.01); Color / Synovial Fluid Yellow (Pale Yellow); Source / Synovial Fluid LEFT KNEE; Source- Body Fluid SYNOVIAL
[2025-07-30 15:15] LABS: Appearance /Synovial Fluid Cloudy (CLEAR); Synovial Fld Polynuclear WBC # 13.126 10^3/uL
[2025-07-30 15:16] LABS: Synovial Fld Mononuclear WBC # 3.196 10^3/ul
[2025-07-30 15:33] LABS: Monocyte /Synovial Fluid 15 %
[2025-07-30 15:46] LABS: CRYSTALS, BODY FLUID NO CRYSTALS SEEN
[2025-07-30 16:48] VITALS: BP 126/68; PULSE 79; RESP 15; TEMP 36.6; O2SAT 98
[2025-07-30 18:06] VITALS: BP 117/69; PULSE 63; RESP 15; TEMP 36.8; O2SAT 99
[2025-07-30 22:49] LABS: Body Fluid QC Type(s) BF3Q,BF4Q
== END 2025-07-30 18:08 | disposition home or self-care (01) ==
PROVIDERS: Emergency Provider Emergency Medicine; PCP Family Medicine; Visit Provider Emergency Medicine
DX: M25.462 Effusion, left knee (principal); D61.818 Other pancytopenia; I85.10 Secondary esophageal varices without bleeding; K74.60 Unspecified cirrhosis of liver; E11.65 Type 2 diabetes mellitus with hyperglycemia; M25.562 Pain in left knee; I10 Essential (primary) hypertension; D69.6 Thrombocytopenia, unspecified; E07.9 Disorder of thyroid, unspecified; E78.00 Pure hypercholesterolemia, unspecified; M10.9 Gout, unspecified; K21.9 Gastro-esophageal reflux disease without esophagitis; G43.909 Migraine, unspecified, not intractable, without status migrainosus; Z87.19 Personal history of other diseases of the digestive system; Z79.85 Long-term (current) use of injectable non-insulin antidiabetic drugs; Z79.84 Long term (current) use of oral hypoglycemic drugs; Z79.890 Hormone replacement therapy; Z79.899 Other long term (current) drug therapy
CPT/HCPCS: 20610; 73564; 80048; 85025; 85652; 86140; 87070; 87075; 87205; 89050; 89051; 89060; 99283; A4216

== ENCOUNTER 2025-08-28 07:24 | Day surgery (SDC) | payer MEDICARE, BC, SELFPAY ==
--- NOTE | 2025-08-24 13:37 | PAT.ANESEVAL ---
Pre-Assessment Diagnosis/Proposed Procedure Planned Operative Procedure(s): EGD Anesthesia History Anesthesia History - cable placer: Anesthesia History - cable placer Hx Hospitalization No 08/24/25 13:06 Any Problems With Anesthesia No 08/24/25 13:06 Cholinesterase deficiency No 08/24/25 13:06 You/Your Family Experience No 08/24/25 13:06 fever (hyperthermia) with Relationship Recent Exposure to Contagious No 02/27/25 05:59 Disease Does patient have nerve No 08/24/25 13:06 stimulator Patient instructed to have device shut off --Does patient have Pacemaker or ICD? When Was Last Pacemaker Check QUESTION #4 FULL TEXT: You/Your Family Experience fever (hyperthermia) with Anesthesia Last Oral Intake Last Oral intake: Last Oral Intake NPO since Meds taken in AM with sips of water? Meds patient instructed to take am of surgery PONV PONV - cable placer: PONV - cable placer Female Yes 08/24/25 13:06 HX of Motion Sickness Yes 08/24/25 13:06 HX of N/V After Surgery No 08/24/25 13:06 Non-Smoker Yes 08/24/25 13:06 Duration of Surgery greater No 08/24/25 13:06 than 60 minutes Number of Risk Factors 3 08/24/25 13:06 PONV Score Moderate Risk 08/24/25 13:06 Height & Weight Height & Weight: Anesthesia: Height & Weight Height 4 ft 11 in 04/24/25 09:33 Respiratory Assessment Respiratory Assessment - cable placer: Respiratory Tract Infection Hx - cable placer Hx Respiratory Tract Infection No 08/24/25 13:06 STOP Sleep Apnea STOP Sleep Apnea - cable placer: STOP Sleep Apnea - cable placer Hx Hypertension No: COREG FOR VARICES OF 08/24/25 13:06 ESPHOGUS Hx Sleep Apnea No 08/24/25 13:06 CPAP BIPAP Do you snore loudly (louder No 08/24/25 13:06 than talking or can be heard Do you often feel tired/ No 08/24/25 13:06 fatigued/ sleepy during daytime? Has anyone observed you stop No 08/24/25 13:06 breathing during sleep? STOP Results Negative 08/24/25 13:06 QUESTION #5 FULL TEXT : Do you snore loudly (louder than talking or can be heard through closed doors)? Tobacco Use History Tobacco Use History - cable placer: Tobacco Use History - cable placer Tobacco Use Smoking Status Never smoker 08/24/25 13:06 Hx Tobacco Use No 08/24/25 13:06 Years Smoking Packs Smoked per Day Smoking Cessation Date was within the last 15 years Hx Smoking Cessation Date Hx Smoking Cessation No 08/24/25 13:06 Counseling Hematologic Medial History Hematologic Hx - cable placer: Hematologic Medical Hx - tar heel Hx of Blood Transfusion Yes 08/24/25 13:06 Hx of Transfusion in last 3 No 08/24/25 13:06 Months Date of Last Transfusion (if within last 3 months) Ever experience any problems No 08/24/25 13:06 with transfusion(s)? Specify any problems Hx of Preganancy in last 3 No 08/24/25 13:06 Months Nurse Filling Out Transfusion BABS 08/24/25 13:06 & Questions: Date: 08/24/25 08/24/25 13:06 Time: 13:07 08/24/25 13:06 Patient unable to answer at this time (ie. confused, unrespo /Reproduction History /Reproductive History - cable placer: /Reproductive Hx- cable placer Hx Now No 08/24/25 13:06 Gestational Age (in weeks): EDC: Hx Hx Para Hx Section SAB No 08/24/25 13:06 Does the father of the baby or his family experience fever w Father of the baby Malignant Hypertension history comment [facility] Medical History (Updated 08/24/25 @ 13:14 by Celeste Giang) Wears hearing aid Wears dentures Fatty liver History of ulceration History of Holter monitoring Back pain Wears glasses Thyroid disease Gout Arthritis Anemia High cholesterol History of GI bleed History of diverticulitis Gastric reflux Former smoker History of edema History of echocardiogram Hypertension Diabetes Migraines Home Medications Medication Instructions Recorded Last Taken Type rizatriptan 10 mg tablet 10 mg PO PRN PRN Migraine Headache 12/28/13 Unknown History Lactobacillus acidophilus 10 mg PO DAILY Check with primary 01/18/23 02/19/25 History (Acidophilus capsule) doctor allopurinol 100 mg tablet 100 mg PO DAILY Check with primary 01/18/23 02/26/25 History doctor cyclosporine 0.05 % eye drops in a 1 drp ophthalmic (eye) BID health 01/18/23 02/26/25 History dropperette (Restasis) maintenance erythromycin 5 mg/gram (0.5 %) eye 1 applic ophthalmic (eye) QHS 01/18/23 02/26/25 History ointment health maintenance ezetimibe 10 mg tablet 10 mg PO DAILY Check with primary 01/18/23 02/26/25 History doctor fluorometholone 0.1 % eye 1 drp ophthalmic (eye) BID health 01/18/23 02/26/25 History drops,suspension maintenance gabapentin 400 mg tablet 800 mg PO QHS health maintenance 01/18/23 02/26/25 History galcanezumab-gnlm 120 mg/mL 120 mg subcut QMONTH Check with 01/18/23 08/18/25 History subcutaneous pen injector primary doctor (Emgality Pen) metformin 1,000 mg tablet 1,000 mg PO BID diabetic 01/18/23 11/08/24 History multivitamin with minerals 2 tab PO DAILY Check with primary 01/18/23 02/19/25 History (Hair,Skin and Nails tablet) doctor nzywgfgcwgap-Vs-bcie-minerals 18 2 tab PO DAILY health maintenance 01/18/23 02/19/25 History mg-0.4 mg tablet vit C 250 mg-vit E 90 mg-zinc 40 1 tab PO BID Check with primary 01/18/23 Unknown History mg-copper 1 no-rilbwr-ndqbqn doctor capsule (PreserVision AREDS-2) magnesium 200 mg tablet 200 mg PO DAILY Check with primary 07/04/24 02/19/25 History doctor ascorbic acid (vitamin C) 500 mg 500 mg PO BID 1 month #60 tabs 12/29/24 02/19/25 Rx chewable tablet elderberry fruit 350 mg capsule 700 mg PO QDAY 12/29/24 02/19/25 History ferrous sulfate 325 mg (65 mg 325 mg PO QDAY 1 month #30 tabs 12/29/24 02/19/25 Rx iron) tablet levothyroxine 75 mcg tablet 75 mcg PO QDAY 1 month #30 tabs 12/29/24 02/27/25 Rx pantoprazole 40 mg tablet,delayed 40 mg PO BID 12/29/24 02/27/25 History release vit C 62.5 mg-vit D3 15 mcg-zinc 2 tab PO QDAY 12/29/24 02/19/25 History 2.75 mg-herbal no.358 chewable tablet (Immune Power) spironolactone 25 mg tablet 25 mg PO DAILY 1 month #30 tabs 03/15/25 Unknown Rx dulaglutide 3 mg/0.5 mL 3 mg subcut TH Check with primary 04/24/25 08/17/25 History subcutaneous pen injector doctor (Matthew) rifaximin 550 mg tablet (Xifaxan) 550 mg PO BID 30 days #60 tabs 05/15/25 Unknown Rx carvedilol 6.25 mg tablet 6.25 mg PO BID 1 month #60 tabs 07/20/25 Unknown Rx lactulose 10 gram/15 mL oral 15 ml PO DAILY 08/24/25 Unknown History solution Allergy/AdvReac Type Severity Reaction Status Date / Time ciprofloxacin (From Cipro) Allergy Other Verified 08/24/25 12:58 ciprofloxacin HCl (From Allergy Other Verified 08/24/25 12:58 Cipro) metronidazole Allergy Other Verified 08/24/25 12:58 Penicillins (PCN) Allergy Other Verified 08/24/25 12:58 Sulfa (Sulfonamide Allergy Rash Verified 08/24/25 12:58 Antibiotics) Qgobrrj-GJF-WqL Reductase AdvReac Other Verified 08/24/25 12:58 Inhibitor Family History Grandfather Diabetes Grandmother Diabetes Father Heart problem Mother CVA (cerebral vascular accident) Surgical History History of esophagogastroduodenoscopy (EGD) Hx of esophagogastroduodenoscopy Hx of tonsillectomy History of Status post left foot surgery Social History Smoking Status: Never smoker alcohol intake: never substance use type: does not use Audit: Pertinent Findings Pertinent Findings EKG Perinent findings: Normal sinus rhythm Left axis deviation Low voltage QRS Abnormal ECG Confirmed by SAMUEL GOLDMAN, CAMELIA ([id number]), technical writer and editor NIRAV MEJIA ([id number]) on 11/15/2024 6:24:09 AM Recommendation Anesthesia Recommendation Anesthesia recommendation: OPTIMIZED for anesthesia (Patient has known anemia and thrombocytopenia, can proceed to preop )
[2025-08-28] VITALS (9 sets, daily range): BP systolic 101–127; BP diastolic 62–74; PULSE 78–89; RESP 16–17; TEMP 36–36.3; O2SAT 93–98; BMI 29.8
--- OUTSIDE RECORDS SUMMARY | 2025-08-28 07:29 | XMS RPT_ITS | CCD ---
Author Organization [facility] Care Team Providers Care Delicatessen Clerk Name Role Phone Unavailable Unavailable Unavailable ESTEBAN THAPA JR. Unavailable Unavailable TATY JULIAN Unavailable Unavailable Shad, Bill Unavailable Unavailable Shad, Bill Unavailable Unavailable Tizzano, Regan P Unavailable Unavailable Tizzano, Regan P Unavailable Unavailable No Doctor Assigned, Nodr Unavailable Unavail able Tizzano, Regan P Unavailable Unavailable Tizzano, Regan P Unavailable Unavailable No Doctor Assigned, Nodr Unavailable Unavail able Tizzano, Regan P Unavailable Unavailable Tizzano, Regan P Unavailable Unavailable No Doctor Assigned, Nodr Unavailable Unavail able No Doctor Assigned, Nodr Unavailable Unavail able Tizzano, Regan P Unavailable Unavailable Tizzano, Regan P Unavailable Unavailable Taty Julian Primary Care Provider Taty Julian Primary Care Provider Taty Julian MD Primary Care Provider Taty Julian Unavailable Unavailable Unavailable Taty Julian MD Primary Care Provider Taty Julian MD Primary Care Provider Rao Grier Unavailable Taty Julian MD Primary Care Provider Rao Grier Unavailable Taty Julian MD Primary Care Provider Rao Grier Unavailable Dr. Taty Julian Primary Care Provider [phone] Dr. Asad Macario Emergency Provider [phone] Dr. Taty Kong Admit Provider Dr. Taty Kong Attending Provider Dr. Taty Kong Other Provider Friend, Dr. Lundberg Attending Provider Dr. Gerber Moreno Attending Provider Dr. Gerber Moreno Other Provider Taty Julian MD Primary Care Provider Eliel, Taty Primary Care Provider Dr. Gerber Moreno Referring Provider Dr. Laury Frederick Attending Provider Dr. Taty Kong Referring Provider Eliel, Dr. Modi Referring Provider Dex MARKETING PROGRAMS SPECIALIST, MARKETING PROGRAMS SPECIALIST-C Leta Jara Attending Provider [phone] KASSIE II, ROBY BUTLER Admitting Un available ELDERBROCK, TATY Primary Care Unavailable SHAD JR., BILL Attending Unavailable ELDERBROCK, TATY Primary Care Unavailable SHAD JR., BILL Referring Unavailable HASSMANN II, ROBY BUTLER Admitting Un available ELDERBROCK, TATY Primary Care Unavailable SHAD JR., BILL Admitting Unavailable ELDERBROCK, TATY Primary Care Unavailable Friend, Dr. Lundberg Other Provider Haydee, Dr. Esteban Pelayo Attending Evaristo Hubbard, Dr. Esteban Pelayo Referring Evaristo Julian, Dr. Taty Adamson Primary Care Ritav alexa Hubbard, Dr. Esteban Pelayo Attending Evaristo Julian, Dr. Taty Adamson Primary Care Ritav alexa Julian, Dr. Taty Adamson Primary Care Ritav alexa Hubbard, Dr. Esteban Pelayo Referring Evaristo Hubbard, Dr. Esteban Pelayo Attending Evaristo Julian, Dr. Modi Primary Care Provider [phone] Friend, Dr. Lundberg Attending Provider [phone] Eliel, Dr. Modi Primary Care Provider Eliel, Dr. Modi Referring Provider Friend, Dr. Lundberg Attending Provider [phone] Friend, Dr. Lundberg Other Provider [phone] Eliel, Dr. Modi Primary Care Provider Eliel, Dr. Modi Referring Provider [phone] Gm, Dr. Alfred Attending Provider Eliel, Dr. Modi Primary Care Provider Eliel, Dr. Modi Referring Provider [phone] Gm, Dr. Alfred Attending Provider Eliel, Taty Primary Care Provider Taty Julian MD Primary Care Provider Tannhof CMM OPERATOR.VISUAL BASIC DEVELOPER, Mago Unavailable Rashawn CMM OPERATOR.VISUAL BASIC DEVELOPER, Isrrael Unavailable Eliel GOLDMAN, Dr. Modi Primary Care Provider [phone] Gm GOLDMAN, Dr. Alfred Attending Provider [phone] Gm GOLDMAN, Dr. Alfred Referring Provider Eliel GOLDMAN, Dr. Modi Referring Provider Friend DO, Dr. Lundberg Attending Provider Friend DO, Dr. Lundberg Other Provider [phone] Yoly GOLDMAN, Dr. Schaeffer Attending Provider Friend DO, Dr. Lundberg Referring Provider Eliel GOLDMAN, Dr. Modi Primary Care Provider [phone] Eliel GOLDMAN, Dr. Modi Referring Provider [phone] Gm GOLDMAN, Dr. Alfred Attending Provider [phone] Gm GOLDMAN, Dr. Alfred Referring Provider ESTEBAN THAPA Attending Unavailable TATY JULIAN Primary Care Unavailable Eliel GOLDMAN, Dr. Modi Primary Care Provider Eliel GOLDMAN, Dr. Modi Referring Provider Friend , Dr. Lundberg Attending Provider Kirsten DO, Dr. Lundberg Other Provider Eliel GOLDMAN, Dr. Modi Primary Care Provider [phone] Gm GOLDMAN, Dr. Alfred Attending Provider [phone] Gm GOLDMAN, Dr. Alfred Referring Provider Eliel GOLDMAN, Dr. Modi Primary Care Provider [phone] Eliel GOLDMAN, Dr. Modi Referring Provider [phone] Gm GOLDMAN, Dr. Alfred Attending Provider [phone] Gm GOLDMAN, Dr. Alfred Referring Provider Eliel GOLDMAN, Taty Adamson Primary Care Provider RENAE BRUCE Referring Unavailable TATY JULIAN Primary Care Unavaila RENAE Malhotra Referring Unavailable ELDERTATY GUTHRIE Primary Care Unavaila ble TATY JULIAN Primary Care Unavailable SHAD JR., BILL Attending Unavailable SHAD JR., BILL Referring Unavailable COLLIN CARLSON Attending Unavailable ELDERTATY GUTHRIE Primary Care Unavailable ELDERTATY GUTHRIE Primary Care Unavailable SHAD JR., BILL Attending Unavailable SHAD JR., BILL Attending Unavailable SHAD JR., BILL Admitting Unavailable TATY JULIAN Primary Care Unavailable PROVIDER, UNKNOWN Referring Unavailable TATY JULIAN Primary Care Unavailable BHUPINDER CUENCA Attending Unavailable TATY JULIAN Primary Care Unavailable DENVER, SARA JESUS Referring Unavailable ELDERTATY GUTHRIE Primary Care Unavailable DENVER, SARA JESUS Referring Unavailable DENVER, SARA JESUS Attending Unavailable TATY JULIAN Primary Care Unavailable JOB ORELLANA Attending Unavailable ELDERTATY GUTHRIE Primary Care Unavailable ELDERTATY GUTHRIE Primary Care Unavailable REGAN NOLAND Referring Unavailable ELDERTATY GUTHRIE Attending Unavailable ELDERTATY GUTHRIE Primary Care Unavailable ELDERTATY GTUHRIE Attending Unavailable ELDERTATY GUTHRIE Primary Care Unavailable ELDERBROCK, TATY D Referring Unavailable ELDERBROCK, TATY D Primary Care Unavailable ELDERBROCK, TATY D Primary Care Unavailable ELDERBROCK, TATY D Referring Unavailable TIREGAN MAGANA Attending Unavailable ELDERBROCK, TATY D Primary Care Unavailable ELDERBROCK, TATY D Referring Unavailable ELDERBROCK, TATY D Primary Care Unavailable TIZZANO REGAN P Referring Unavailable Bursley, Mingo Referring Unavailable Bursley, Mingo Primary Care Unavailable Friend, Toño Attending Unavailable Gm, Tima Attending Unavailable Gm, Tima Referring Unavailable Elderbrock, Taty Primary Care Unavailable Laury Frederick Attending Unavailabl e Friend, Toño Referring Unavailable Elderbrock, Taty Primary Care Unavailable Friend, Toño Consulting Unavailable Friend, Toño Attending Unavailable Elderbrock, Taty Primary Care Unavailable Elderbrock, Taty Referring Unavailable Friend, Toño Attending Unavailable Elderbrock, Taty Primary Care Unavailable Elderbrock, Taty Referring Unavailable Friend, Toño Consulting Unavailable Gm, Tima Attending Unavailable Elderbrock, Taty Primary Care Unavailable Elderbrock, Taty Referring Unavailable Gm, Tima Attending Unavailable Elderbrock, Taty Referring Unavailable Elderbrock, Taty Primary Care Unavailable Gm, Tima Attending Unavailable Elderbrock, Taty Primary Care Unavailable Elderbrock, Taty Referring Unavailable Gm, Tima Attending Unavailable Gm, Tima Referring Unavailable Elderbrock, Taty Primary Care Unavailable Gm, Tima Attending Unavailable Gm, Tima Referring Unavailable Elderbrock, Taty Primary Care Unavailable Gm, Tima Attending Unavailable Gm, Tima Referring Unavailable Elderbrock, Taty Primary Care Unavailable Brennan, Sergey Attending Unavailable Elderbrock, Taty Primary Care Unavailable Gm, Tima Attending Unavailable Gm, Tima Referring Unavailable Elderbrock, Taty Primary Care Unavailable Friend, Toño Attending Unavailable Elderbrock, Taty Referring Unavailable Elderbrock, Taty Primary Care Unavailable Friend, Toño Attending Unavailable Elderbrock, Taty Primary Care Unavailable Elderbrock, Taty Referring Unavailable Gm, Tima Attending Unavailable Gm, Tima Referring Unavailable Elderbrock, Taty Primary Care Unavailable Gm, Tima Attending Unavailable Gm, Tima Referring Unavailable Elderbrock, Taty Primary Care Unavailable Luisack , Dr. Modi Primary Care Physician Dr. Tima Worrell MD Attending Physician Eliel GOLDMAN, Dr. Modi Referring Provider [phone] Mika GOLDMAN, Dr. Rincon Attending Physician Mika GOLDMAN, Dr. Rincon Emergency Department Physician Allergies Allergy Classification Reported Allergen(s) Allergy Type Date of Onset Reaction(s) Facility Nitroimidazoles (antibiotic) (2 sources) metroNIDAZOLE Drug Allergy Unknown [facility] Penicillins (antibiotic) (2 sources) Penicillins Drug Allergy [facility] Quinolones (antibiotic) (2 sources) Ciprofloxacin Drug Allergy Unknown [facility] Sulfonamides (antibiotic) (2 sources) Sulfonamides (Antibiotic) Drug Allergy Unknown [facility] (6 sources) Ciprofloxacin; Translations: [Cipro] Drug Allergy [facility] Repository (20 sources) metroNIDAZOLE; Translations: [metroNIDAZOLE] Drug Allergy 08-28-20 09 Unknown, Hives, Other (See Comments) [facility] Repository (1 source) Penicillin; Translations: [penicillin] Drug Allergy [facility] Repository (6 sources) Sulfonamides (Antibiotic); Translations: [sulfa drugs] Propensity to adverse reactions to drug (disorder) [facility] Repository (20 sources) Ciprofloxacin; Translations: [CIPROFLOXACIN] Drug Allergy 08-28-20 09 Unknown, Hives, Other (See Comments) [place], [place] (6 sources) Penicillins; Translations: [PENICILLINS] Propensity to adverse reactions to drug 07-16-20 05 [place], [place] (1 source) Sulfonamides (Antibiotic) Propensity to adverse reactions to drug 09-04-20 20 [place], [place] (12 sources) Penicillins Propensity to adverse reactions to drug [facility] (20 sources) Sulfonamides (Antibiotic); Translations: [SULFA (SULFONAMIDE ANTIBIOTICS)] Propensity to adverse reactions to drug 07-16-20 05 Unknown, Rash [facility] (5 sources) Penicillins; Translations: [Penicillins] Allergy to drug (finding) Unknown [address] Work Phone: (20 sources) Penicillins Propensity to adverse reactions 07-16-20 05 Rash, Unknown [facility] Work Phone: (17 sources) Ciprofloxacin; Translations: [ciprofloxacin HCl] Drug Allergy 01-19-20 Other [facility] (16 sources) Penicillins Allergy to substance 01-19-20 Other [facility] (16 sources) Sulfonamides (Antibiotic) Allergy to substance 01-19-20 Rash [facility] (16 sources) Lifynrw-Jiz-Drl Reductase Inhibitor Propensity to adverse reactions 01-19-20 Other [facility] Comment on above: cant walk (20 sources) HMG-CoA reductase inhibitor; Translations: [XLRILHG-PHG-YSL REDUCTASE INHIBITORS] Propensity to adverse reactions to drug 01-19-20 Other (See Comments), Myalgia [facility] (6 sources) HMG-CoA reductase inhibitor Drug Intolerance 01-19-20 [facility] (7 sources) Penicillins Drug Intolerance 09-04-20 [facility] (13 sources) Penicillins Propensity to adverse reactions 07-16-20 05 Rash, Unknown [facility] Work Phone: (1 source) ALLERGIES NOT ON FILE; Translations: [ALLERGIES NOT ON FILE] Propensity to adverse reactions (disorder) [facility] 2 Repository (1 source) Ciprofloxacin Drug Allergy 08-24-20 [facility] Repository (1 source) Penicillins Drug allergy (disorder) 08-24-20 [facility] Repository (1 source) Sulfonamides (Antibiotic) Drug allergy (disorder) 08-24-20 [facility] Repository (1 source) Bfdxzgb-Wil-Dhq Reductase Inhibitor Drug allergy (disorder) 08-24-20 [facility] Repository Medications Current Medications Medication Drug Class(es) Dates Sig (Normalized) Sig (Original) acetaminophen 325 mg / oxyCODONE hydrochloride 5 mg oral tablet (2 sources) Opioid Agonist Start: 06-24-2022 End: 07-01-2022 oxyCODONE-acetamin ophen (PERCOCET) 5-325 mg per tablet Indications: Left foot pain , Closed displaced fracture of fifth metatarsal bone of left foot, initial encounter Take 1 (one) tablet by mouth every 6 (six) hours as needed for pain (Days supply per fill: 7) Take less as pain improves . 28 tablet 0 06/24/2022 07/01/2022 Active allopurinol 100 mg oral tablet (20 sources) Xanthine Oxidase Inhibitor Start: 01-18-2023 End: 06-07-2026 take 1 tablet by mouth once daily Allopurinol 100 mg Tablet Active 100 mg PO DAILY January 18, 2023 12:00am Check with primary doctor Complies with drug therapy Start: 10-09-2021 End: 10-09-2022 take 1 tablet by mouth once daily allopurinoL (ZYLOPRIM) 100 MG tablet Take 1 (one) tablet (100 mg total) by mouth daily . 30 tablet 11 10/09/2021 02/18/2022 Discontinued Start: 05-26-2018 End: 06-11-2023 take 1 tablet by mouth twice daily allopurinol (ZYLOPRIM) 100 mg tablet Take 100 mg by mouth twice daily. 0 11/07/2022 06/11/2023 Discontinued Allopurinol 300 MG Oral Tablet Quantity: 0 Refills: 0 Ordered: 02-Nov-2019 DO Active Comment on above: Take 100 mg by mouth twice daily. Take 1 tablet by taryn th once daily. apixaban 5 mg oral tablet (2 sources) Factor Xa Inhibitor Start: 06-24-2022 apixaban (ELIQUIS) 5 mg Tab Indications: Left foot pain , Closed displaced fracture of fifth metatarsal bone of left foot, initial encounter Take twice a day starting day after surgery. . 60 tablet 0 06/24/2022 Active ascorbic acid 500 mg oral tablet (19 sources) Vitamin C Start: 03-10-2025 take 1 tablet by mouth twice daily ascorbic acid, vitamin C, (VITAMIN C) 500 mg tablet Take 1 tablet by mouth two times a day. 03/10/2025 Active Start: 12-29-2024 ascorbic acid, vitamin C, (VITAMIN C) 500 MG tablet Take by mouth every 12 (twelve) hours . 12/29/2024 Active Start: 12-29-2024 take 1 tablet by taryn th twice daily Ascorbic Acid (Vitamin C) 500 mg tablet,chewable Active 500 mg PO TWICE A DAY 60 30 2 December 29, 2024 12:00am Complies with drug therapy B.ani/L.aci/L.michael/L.plan/L.C as (PROBIOTIC FORMULA ORAL) (20 sources) take 1 capsule by mouth once daily in the morning B.ani/L.aci/L.michael/L.plan/L.Anatoliy (PROBIOTIC FORMULA ORAL) Take 1 capsule by mouth every morning . Active take 1 capsule by mo uth once daily in the morning B.ani/L.aci/L.michael/L.plan/L.Anatoliy (PROBIOTI C FORMULA ORAL) Take 1 capsule by mouth every morning . 0 Active take 1 capsule by mo uth once daily B.ani/L.aci/L.michael/L.plan/L.Anatoliy (PROBIOTI C FORMULA ORAL) Take 1 capsule by mouth daily . 0 Active Black Elderberry (SAMBUCUS E LDERBERRY PO) (6 sources) Black Elderberry (SAMBUCUS ELDERBERRY PO) Take by mouth. Active Black Elderberry (SAMBUCUS ELDERBERRY PO) Take by mouth. 0 Active carvedilol 6.25 mg oral tablet (20 sources) alpha-Adrenergic Ibeth, beta-Adrenergic Ibeth Start: 12-09-2024 take 1 tablet by mouth twice daily at mealtime carvedilol (COREG) 6.25 mg tablet Take 1 tablet by mouth two times a day with meals. 180 tablet 12/09/2024 Active Start: 09-28-2024 End: 07-20-2025 Carvedilol 6.25 mg tablet Ac tive 6.25 mg PO TWICE A DAY 60 30 6 July 20, 2025 3:16pm must administer with a meal/food Hold for heart less than 50 or systolic blood pressure less than 100 mmHg. Complies with drug therapy cranberry fruit extract (CRANBERRY ORAL) (20 sources) End: 12-09-2024 cranberry fruit extract (CRANBERRY ORAL) Take by mouth. 12/09/2024 Discontinued (Discontinued by another Health Care Provider) cranberry fruit extract (CRANBERRY ORAL) Take by mouth every morning . Active cranberry fruit extract (CRANBERRY ORAL) Take by mouth. Active cranberry fruit extract (CRANBERRY ORAL) Take by mouth every morning . 0 Active cranberry fruit extract (CRANBERRY ORAL) Take by mouth. 0 Active cranberry fruit extract (CRANBERRY ORAL) Take by mouth . 0 Active Comment on above: Take by mouth. cranberry preparation 500 mg oral capsule (20 sources) Non-Standardized Food Allergenic Extract, Non-Standardized Plant Allergenic Extract Start: 01-18-2023 cranberry 500 mg cap Take 1 (one) capsule (500 mg total) by mouth . 01/18/2023 Active Start: 01-18-2023 cranberry 500 mg cap Take 1 (one) capsule (500 mg total) by mouth . 0 01/18/2023 Active Start: 01-18-2023 End: 11-07-2024 take 1 capsule by mouth once daily at mealtime Cranberry 500 mg Capsule Discontinued 500 mg PO DAILY January 18, 2023 12:00am November 07, 2024 9:56am Check with primary doctor On Hold: None administer with meals Start: 01-18-2023 End: 11-07-2024 take 1 capsule by mouth once daily at mealtime Cranberry 500 mg Capsule Discontinued 500 mg PO DAILY January 18, 2023 12:00am November 07, 2024 9:56am On Hold: None administer with meals Start: 01-18-2023 take 500 mg by mouth once daily at mealtime Cranberry Active 500 MG PO DAILY January 17, 2023 11:00pm administer with meals Start: 01-18-2023 take 500 mg by mouth once daily at mealtime Cranberry Active 500 MG PO DAILY January 18, 2023 12:00am administer with meals Start: 01-18-2023 take 500 mg by mouth twice daily at mealtime Cranberry Active 500 MG PO TWICE A DAY January 18, 2023 12:00am administer with meals Cranberry 500 MG capsule Take by mouth. Active Cranberry CAPS Q uantity: 0 Refills: 0 Ordered: 02-Nov-2019 DO Active cycloSPORINE 0.5 mg/ml ophthalmic suspension (20 sources) Calcineurin Inhibitor Immunosuppressant Start: 03-02-2023 Restasis 0.05 % ophthalmic emulsion 03/02/2023 Active Start: 01-18-2023 Cyclosporine ( Restasis) 0.05 % dropperette Active 1 NMA OPHTHALMIC TWICE A DAY January 18, 2023 12:00am health maintenance Complies with drug therapy Start: 05-27-2017 take 1 drop(s) into the eye(s) twice daily cycloSPORINE (RESTASIS) 0.05 % ophthalmic emulsion Use 1 Drop in both eyes twice daily. 0 05/27/2017 Active Start: 05-27-2017 take 1 drop(s) into the eye(s) twice daily cycloSPORINE (RESTASIS) 0.05 % ophthalmic emulsion Use 1 Drop in both eyes twice daily. 0 05/27/2017 Active cycloSPORINE (Re stasis MultiDose) 0.05 % ophthalmic emulsion 1 drop 2 times daily. Active Comment on above: Use 1 Drop in both e yes twice daily. Cyclosporine (Restasis) 0.05 % dropperette (14 sources) Start: 01-18-2023 Cyclosporine (Restasis) 0.05 % dropperette Active 1 NMA OPHTHALMIC TWICE A DAY January 18, 2023 12:00am health maintenance Start: 01-18-2023 Cyclosporine ( Restasis) 0.05 % dropperette Active 1 NMA OPHTHALMIC TWICE A DAY January 18, 2023 12:00am Start: 01-18-2023 Cyclosporine ( Restasis) 0.05 % dropperette Active 1 DRP OPHTHALMIC TWICE A DAY January 17, 2023 11:00pm Start: 01-18-2023 Cyclosporine ( Restasis) 0.05 % dropperette Active 1 DRP OPHTHALMIC TWICE A DAY January 18, 2023 12:00am diclofenac sodium 0.01 mg/mg topical gel (12 sources) Nonsteroidal Anti-inflammatory Drug Start: 04-07-2023 Diclofenac Sodium (Voltaren Arthritis Pain) 1 % Gel Active 1 EACH TOPICAL EVERY 6 HOURS April 07, 2023 12:00am Start: 12-28-2013 diclofenac pot assium (CATAFLAM) 50 MG tablet Take 1 (one) tablet (50 mg total) by mouth . 12/28/2013 Active Dulaglutide (20 sources) GLP-1 Receptor Agonist Start: 04-24-2025 Dulaglu tide (Trulicity) 3 mg/0.5 mL pen injector Active 3 mg SC April 24, 2025 10:37am Check with primary doctor Complies with drug therapy Start: 04-24-2025 Dulaglutide (T rulicity) 3 mg/0.5 mL pen injector Active 3 mg SC April 24, 2025 10:37am Check with primary doctor Start: 12-29-2024 End: 04-24-2025 Dulaglutide (Trulicity) 3 mg /0.5 mL pen injector Discontinued 4.5 mg SC December 29, 2024 9:07am April 24, 2025 10:37am Check with primary doctor Start: 12-29-2024 Dulaglutide (T rulicity) 3 mg/0.5 mL pen injector Active 4.5 mg SC December 29, 2024 9:07am Check with primary doctor Start: 12-29-2024 Dulaglutide (T rulicity) 3 mg/0.5 mL pen injector Active 4.5 mg SC December 29, 2024 9:07am Start: 01-18-2023 End: 12-29-2024 Dulaglutide (Trulicity) 3 mg /0.5 mL Pen Injector Discontinued 3 mg SC January 18, 2023 12:00am December 29, 2024 9:12am Check with primary doctor Start: 01-18-2023 End: 12-29-2024 Dulaglutide (Trulicity) 3 mg /0.5 mL Pen Injector Discontinued 3 mg SC January 18, 2023 12:00am December 29, 2024 9:12am Start: 01-18-2023 Dulaglutide (T rulicity) 3 mg/0.5 mL Pen Injector Active 3 MG SC EVERY WEEK January 17, 2023 11:00pm Start: 01-18-2023 Dulaglutide (T rulicity) 3 mg/0.5 mL Pen Injector Active 3 MG SC EVERY WEEK January 18, 2023 12:00am Start: 08-20-2022 Trulicity 3 mg /0.5 mL Pen INJECT THE CONTENTS OF 1 SYRINGE SUBCUTANEOUSLY ONCE A WEEK 08/20/2022 Active Start: 08-20-2022 Trulicity 3 mg /0.5 mL Pen INJECT THE CONTENTS OF 1 SYRINGE SUBCUTANEOUSLY ONCE A WEEK 0 08/20/2022 Active Start: 08-11-2020 TRULICITY 1.5 MG/0.5ML SOPN INJECT THE CONTENTS OF ONE SYRINGE SUBCUTANEOUSLY ONCE A WEEK. DISCARD PEN AFTER USE. 0 08/11/2020 Active Start: 03-28-2020 End: 02-07-2021 dulaglutide (TRULICITY) 1.5 mg/0.5 mL Inject 1.5 mg subcutaneously one time a week. Inject once per week. Discard Pen After 12 Pen 3 03/28/2020 02/07/2021 Discontinued dulaglutide (TRULICITY) 3 mg/0.5 mL pen injector (18 sources) Start: 05-15-2025 inject 3 mg by subcutaneous injection every week dulaglutide (TRULICITY) 3 mg/0.5 mL pen injector Indications: Type 2 diabetes mellitus without complication, without long-term current use of insulin (HCC) Inject 3 mg subcutaneously one time a week. 6 mL 3 05/15/2025 Active Start: 12-09-2024 End: 12-09-2024 inject 3 mg by subcutaneous injection every week dulaglutide (TRULICITY) 3 mg/0.5 mL pen injector Indications: Type 2 diabetes mellitus without complication, without long-term current use of insulin (HCC) Inject 3 mg subcutaneously one time a week. 6 mL 3 12/09/2024 12/09/2024 Discontinued Start: 12-11-2023 End: 12-09-2024 inject 3 mg by subcutaneous injection every week dulaglutide (TRULICITY) 3 mg/0.5 mL pen injector Indications: Type 2 diabetes mellitus without complication, without long-term current use of insulin (HCC) Inject 3 mg subcutaneously one time a week. 6 mL 3 12/11/2023 12/09/2024 Discontinued Start: 12-11-2023 inject 3 mg by subcu taneous injection every week dulaglutide (TRULICITY) 3 mg/0.5 mL pen injector Indications: Type 2 diabetes mellitus without complication, without long-term current use of insulin (HCC) Inject 3 mg subcutaneously one time a week. 6 mL 3 12/11/2023 Active Start: 02-18-2023 End: 12-11-2023 inject 3 mg by subcutaneous injection every week dulaglutide (TRULICITY) 3 mg/0.5 mL pen injector Indications: Type 2 diabetes mellitus without complication, without long-term current use of insulin (HCC) Inject 3 mg subcutaneously one time a week. 6 mL 3 02/18/2023 12/11/2023 Discontinued Start: 02-18-2023 inject 3 mg by subcu taneous injection every week dulaglutide (TRULICITY) 3 mg/0.5 mL pen injector Indications: Type 2 diabetes mellitus without complication, without long-term current use of insulin (HCC) Inject 3 mg subcutaneously one time a week. 6 mL 3 02/18/2023 Active Comment on above: Inject 3 mg subcutan eously one time a week. dulaglutide (Trulicity) 3 MG/0.5ML solution pen-injector (4 sources) Start: inject 3 mg by subcutaneous injection every week dulaglutide (Trulicity) 3 MG/0.5ML solution pen-injector Inject 3 mg under the skin once a week. 0 05/24/2022 Active dulaglutide (Trulicity) 3 MG/0.5ML solution pen-injector (2 sources) Start: 022 inject 3 mg by subcutaneous injection every week dulaglutide (Trulicity) 3 MG/0.5ML solution pen-injector Inject 3 mg under the skin once a week. 05/24/2022 Active ELDERBERRY FRUIT (8 sources) Start: 025 take 1 capsule by mouth once daily Elderberry Fruit 350 mg capsule Active 700 mg PO daily December 29, 2024 12:00am Complies with drug therapy Start: 12-29-2024 take 1 capsule by mo uth once daily Elderberry Fruit 350 mg capsule Active 700 mg PO daily December 29, 2024 12:00am EMGALITY 120 MG/ML SOAJ (1 source) Start: 09-03-2020 EMGALITY 120 M G/ML SOAJ erythromycin 0.005 mg/mg ophthalmic ointment (20 sources) Macrolide, Macrolide Antimicrobial Start: 01-18-2023 erythromycin (Romycin) 5 MG/GM ophthalmic ointment Apply to affected eye(s). 01/18/2023 Active Start: 01-18-2023 Erythromycin 5 mg/gram (0.5 %) ointment Active 1 NMA OPHTHALMIC AT BEDTIME January 18, 2023 12:00am health maintenance Complies with drug therapy Start: 01-18-2023 Erythromycin A ctive 1 APPLIC OPHTHALMIC AT BEDTIME January 18, 2023 12:00am erythromycin base (ERYTHROMY OTONIEL OPHT) (20 sources) erythromycin bas e (ERYTHROMYCIN OPHT) Apply 0.5 % to eye nightly Both eyes . Active erythromycin bas e (ERYTHROMYCIN OPHT) Apply 0.5 % to eye nightly Both eyes . 0 Active erythromycin bas e (ERYTHROMYCIN OPHT) Apply 0.5 % to eye 4 (four) times a day Both eyes . 0 Active ERYTHROMYCIN BASE (ERYTHROMY OTONIEL OPHTHALMIC) (20 sources) ERYTHROMYCIN BAS E (ERYTHROMYCIN OPHTHALMIC) Use in eyes. Active ERYTHROMYCIN BAS E (ERYTHROMYCIN OPHTHALMIC) Use in eyes. 0 Active Comment on above: Use in eyes. ezetimibe 10 mg oral tablet (20 sources) Dietary Cholesterol Absorption Inhibitor Start: 01-06-2023 End: 12-09-2024 take 1 tablet by mouth once daily Ezetimibe 10 mg tablet Active 10 mg PO DAILY January 18, 2023 12:00am Check with primary doctor Complies with drug therapy Comment on above: Take 1 tablet by taryn th once daily. ferrous sulfate 325 mg oral tablet (20 sources) Start: 12-29-2024 take 1 tablet by mouth once daily Ferrous Sulfate 325 mg (65 mg iron) tablet Active 325 mg PO daily 30 30 5 December 29, 2024 10:06am Complies with drug therapy Start: 12-09-2024 take 1 tablet by taryn th every other day ferrous sulfate 325 mg (65 mg iron) tablet Indications: Anemia, unspecified type Take 1 tablet by mouth every other day. 12/09/2024 Active Start: 07-15-2024 End: 12-29-2024 take 1 tablet by mouth every other day Ferrous Sulfate 325 mg (65 mg iron) tablet Discontinued 325 mg PO every other day 30 30 5 July 15, 2024 10:33am December 29, 2024 10:08am Start: 06-11-2023 End: 12-09-2024 take 1 tablet by mouth once daily ferrous sulfate 325 mg (65 mg iron) tablet Indications: Anemia, unspecified type Take 1 tablet by mouth once daily. 06/11/2023 12/09/2024 Discontinued Start: 03-20-2023 End: 07-15-2024 take 1 tablet by mouth once daily Ferrous Sulfate 325 mg (65 mg iron) tablet Discontinued 325 mg PO DAILY 30 30 4 March 07, 2024 9:41am July 15, 2024 10:39am Start: 07-09-2022 take 1 tablet by taryn twice daily at mealtime FeroSuL 325 mg (65 mg iron) tablet Take 1 (one) tablet (325 mg total) by mouth 2 (two) times a day with meals . 07/09/2022 Active Start: 07-09-2022 End: 06-11-2023 take 1 tablet by mouth twice daily at mealtime ferrous sulfate 325 mg (65 mg iron) tablet Indications: Anemia, unspecified type Take 1 tablet by mouth twice daily with meals. 60 tablet 2 07/09/2022 06/11/2023 Discontinued Comment on above: Take 1 tablet by taryn twice daily with meals. Take 1 tablet by taryn once daily. fluorometholone 1 mg/ml ophthalmic suspension (20 sources) Corticosteroid Start: 023 take 1 drop(s) into the eye(s) twice daily fluorometholone (FML) 0.1 % ophthalmic suspension INSTILL 1 DROP INTO EACH EYE TWICE DAILY 02/27/2023 Active Start: 01-18-2023 Fluorometholon e 0.1 % drops,suspension Active 1 NMA OPHTHALMIC TWICE A DAY January 18, 2023 12:00am health maintenance Complies with drug therapy Start: 01-18-2023 Fluorometholon e Active 1 DRP OPHTHALMIC TWICE A DAY January 18, 2023 12:00am Start: 09-29-2019 fluorometholon e (FML LIQUID FILM) 0.1 % ophthalmic suspension 09/29/2019 Active take 1 drop(s) into the eye(s) four times daily fluorometholone (FML) 0.1 % ophthalmic suspension Administer 1 drop to both eyes 4 (four) times a day . 0 Active Fluorometholone SUSP Quantity: 0 Refills: 0 Ordered: 02-Nov-2019 DO Active gabapentin 400 mg oral capsule (20 sources) Anti-epileptic Agent Start: 01-18-2023 take 2 tablets by mouth at bedtime Gabapentin 400 mg Tablet Active 800 mg PO AT BEDTIME January 18, 2023 12:00am health maintenance Complies with drug therapy Start: 01-18-2023 take 800 mg by mouth at bedtim e Gabapentin Active 800 MG PO AT BEDTIME January 18, 2023 12:00am Start: 11-12-2022 take 1 capsule by [facility] twice daily gabapentin (NEURONTIN) 400 MG capsule Take 1 (one) capsule (400 mg total) by mouth 2 (two) times a day . 11/12/2022 Active Start: 07-09-2022 End: 06-13-2025 gabapentin (Neurontin) 400 M G capsule Indications: Primary insomnia TAKE 2-3 CAPS ABOUT 90 MIN PRIOR TO BEDTIME. 270 capsule 3 03/15/2025 06/13/2025 Active Start: 10-30-2020 End: 11-26-2021 take 2 capsules by mouth once daily at bedtime gabapentin (NEURONTIN) 400 mg capsule Indications: Intractable migraine without aura and without status migrainosus Take 2 capsules by mouth daily at bedtime for 90 days. 10/30/2020 11/26/2021 Discontinued Start: 09-04-2020 End: 10-03-2020 gabapentin (NEURONTIN) 400 M G capsule Indications: Primary insomnia Take 2-3 caps about 90 min prior to bedtime. 90 capsule 3 09/04/2020 10/03/2020 Active Gabapentin 300 M G Oral Capsule Quantity: 0 Refills: 0 Ordered: 02-Nov-2019 DO Active take 1 tablet by taryn three times daily gabapentin (NEURONTIN) 600 MG tablet Take 600 mg by mouth 3 (three) times a day . 0 Active Comment on above: Take 1 capsule by [facility] twice daily. 1 ml galcanezumab-gnlm 120 mg/ml auto-injector (20 sources) Start: 08-14-2021 End: 04-14-2025 Emgality Pen 120 mg/mL Pen INJECT 1 PEN UNDER THE SKIN EVERY 30 DAYS 08/14/2021 Active Start: 01-16-2021 Galcanezumab-G nlm (Emgality Pen) 120 mg/mL Pen Injector Active 120 mg SC EVERY MONTH January 18, 2023 12:00am Check with primary doctor Complies with drug therapy Comment on above: Inject 120 mg subcut aneously once every month. Galcanezumab-gnlm (EMGALITY) 120 MG/ML SOAJ (1 source) Start: 09-04-2020 Galcanezumab-gnlm (EMGALITY) 120 MG/ML SOAJ Indications: Intractable migraine with aura without status migrainosus 1 pen every 30 days 1 pen 5 09/04/2020 Active L.ACID/L.CASEI/B.BIF /B.MINDA/FOS (PROBIOTIC BLEND ORAL) (20 sources) L.ACID/L.CASEI/B .BIF/B. MINDA/FOS (PROBIOTIC BLEND ORAL) Take by mouth. Active L.ACID/L.CASEI/B .BIF/B.MINDA/FOS (PROBIOTIC BLEND ORAL) Take by mouth. 0 Active Comment on above: Take by mouth. Lactobac no.41/Bifidobact no.7 (PROBIOTIC-10 ORAL) (20 sources) take 100 ug by mouth once daily in the morning Lactobac no.41/Bifidobact no.7 (PROBIOTIC-10 ORAL) Take 100 mcg/mL by mouth every morning . Active take 100 ug by mouth once daily in the morning Lactobac no.41/Bifidobact no.7 (PROBIOTI C-10 ORAL) Take 100 mcg/mL by mouth every morning . 0 Active take 100 ug by mouth once daily Lactobac no.41/Bifidobact no.7 (PROBIOTIC-10 ORAL) Take 100 mcg/mL by mouth daily . 0 Active Lactobacillus (6 sources) Lactobacillus (A CIDOPHILUS/BIFIDUS PO) Take by mouth. Active Lactobacillus (A CIDOPHILUS/BIFIDUS PO) Take by mouth. 0 Active lactobacillus acidophilus [id number] unt oral capsule (20 sources) Start: 01-18-2023 take 1 capsule by mouth once daily Lactobacillus Acidophilus (Acidophilus) Capsule Active 10 mg PO DAILY January 18, 2023 12:00am Check with primary doctor Complies with drug therapy Start: 01-18-2023 take 1 capsule by [facility] once daily Lactobacillus Acidophilus (Acidophilus) Capsule Active 10 mg PO DAILY January 18, 2023 12:00am Check with primary doctor Acidophilus TABS Quantity: 0 Refills: 0 Ordered: 02-Nov-2019 DO Active lactulose 667 mg/ml oral solution (20 sources) Osmotic Laxative Start: 03-15-2025 Lactulose 10 gram/15 mL solution Active 15 mL PO TWICE A DAY 3785 30 March 15, 2025 12:00am Titrate the frequency to 1-3 times per day to have 1 BM per day Complies with drug therapy Start: 11-17-2023 End: 03-07-2024 Lactulose 20 gram/30 mL solu tion Discontinued 10 g PO THREE TIMES A DAY 3000 November 17, 2023 5:04pm March 07, 2024 9:44am Goal is to have 2-3 soft BM/day. Start: 11-17-2023 End: 03-07-2024 Lactulose 20 gram/30 mL solu tion Discontinued 10 g PO THREE TIMES A DAY 2999November 17, 2023 5:04pm March 07, 2024 9:44am Goal is to have 2-3 soft BM/day. Start: 11-17-2023 Lactulose Acti ve 10 GM PO THREE TIMES A DAY 2999November 17, 2023 5:04pm Goal is to have 2-3 soft BM/day. Start: 11-17-2023 Lactulose Acti ve 10 GM PO THREE TIMES A DAY 2999November 17, 2023 4:04pm Goal is to have 2-3 soft BM/day. Start: 06-02-2023 End: 07-15-2024 Lactulose 20 gram/30 mL solu tion Discontinued 10 g PO THREE TIMES A DAY 3000 6 November 17, 2023 5:04pm March 07, 2024 9:44am Goal is to have 2-3 soft BM/day. Start: 06-02-2023 End: 03-15-2025 Lactulose 20 gram/30 mL solu tion Discontinued 20 g PO daily July 15, 2024 10:00am March 15, 2025 9:27am Goal is to have 2-3 soft BM/day. Start: 01-21-2023 End: 09-14-2023 take 30 g by mouth once daily Lactulose 20 gram/30 mL solution Discontinued 30 g PO DAILY April 07, 2023 3:25pm September 14, 2023 9:55am Start: 01-21-2023 End: 04-07-2023 take 20 g by mouth three times daily Lactulose 20 gram/30 mL solution Discontinued 20 g PO THREE TIMES A DAY 3000 3 January 21, 2023 12:00am April 07, 2023 3:26pm LACTULOSE PO Robert e by mouth. Active LACTULOSE PO Robert e by mouth. 0 Active Comment on above: Take by mouth. Take 30 mL by mouth. levothyroxine sodium 0.075 mg oral tablet (20 sources) l-Thyroxine Start: End: take 1 tablet by mouth once daily Levothyroxine 75 mcg tablet Active 75 ug PO daily December 29, 2024 12:00am Complies with drug therapy Start: 07-04-2024 End: 12-29-2024 take 1 tablet by mouth once daily Levothyroxine 88 mcg tablet Discontinued 88 ug PO DAILY July 04, 2024 12:00am December 29, 2024 10:00am Start: 12-11-2023 End: 06-07-2024 take 1 tablet by mouth once daily levothyroxine (SYNTHROID) 88 mcg tablet Indications: Hypothyroidism, unspecified type Take 1 tablet by mouth once daily. Take on empty stomach. 90 tablet 3 06/07/2024 Active Start: 03-28-2020 End: 12-11-2023 take 1 tablet by mouth once daily Levothyroxine 75 mcg tablet Active 75 ug PO daily 30 30 December 29, 2024 12:00am Start: 12-28-2013 End: 07-04-2024 Levothyroxine 50 MCG tablet Discontinued 75 ug PO DAILY December 28, 2013 12:00am July 04, 2024 3:04pm Check with primary doctor Start: 12-28-2013 take 75 ug by mouth once daily Levothyroxine Active 75 MCG PO DAILY December 28, 2013 12:00am Start: 12-28-2013 take 50 ug by mouth once daily Levothyroxine Active 50 MCG PO DAILY December 28, 2013 12:00am Synthroid 100 MC G Oral Tablet Quantity: 0 Refills: 0 Ordered: 02-Nov-2019 DO Active Comment on above: Take 1 tablet by taryn th once daily. Take 1 tablet by taryn th once daily. Take on empty stomach. Magnesium (20 sources) Start: 07-04-2024 take 1 tablet by mouth once daily Magnesium 200 mg tablet Active 200 mg PO DAILY July 04, 2024 12:00am Check with primary doctor Complies with drug therapy Start: 07-04-2024 take 1 tablet by taryn th once daily Magnesium 200 mg tablet Active 200 mg PO DAILY July 04, 2024 12:00am Check with primary doctor Start: 07-04-2024 take 1 tablet by taryn th once daily Magnesium 200 mg tablet Active 200 mg PO DAILY July 04, 2024 12:00am Start: 03-07-2024 End: 07-04-2024 Magnesium 200 mg tablet Disc ontinued 500 mg PO DAILY 75 30 March 07, 2024 9:43am July 04, 2024 3:07pm Check with primary doctor Start: 03-07-2024 End: 07-04-2024 Magnesium 200 mg tablet Disc ontinued 500 mg PO DAILY 75 30 March 07, 2024 9:43am July 04, 2024 3:07pm Start: 06-11-2023 take 1 tablet by taryn th twice daily Magnesium 250 mg tab Take 1 tablet by mouth twice daily. 06/11/2023 Active Start: 06-11-2023 take 1 tablet by taryn th twice daily Magnesium 250 mg tab Take 1 tablet by mouth twice daily. 0 06/11/2023 Active Start: 01-18-2023 End: 03-07-2024 Magnesium 200 mg Tablet Disc ontinued 500 mg PO DAILY January 18, 2023 12:00am March 07, 2024 9:44am Check with primary doctor Start: 01-18-2023 End: 03-07-2024 Magnesium 200 mg Tablet Disc ontinued 500 mg PO DAILY January 18, 2023 12:00am March 07, 2024 9:44am Start: 01-18-2023 take 500 mg by mouth once jami y Magnesium Active 500 MG PO DAILY January 17, 2023 11:00pm Start: 01-18-2023 take 500 mg by mouth once jami y Magnesium Active 500 MG PO DAILY January 18, 2023 12:00am Start: 01-18-2023 take 200 mg by mouth once jami y Magnesium Active 200 MG PO DAILY January 18, 2023 12:00am magnesium 250 MG tablet Take by mouth. Active magnesium 250 mg Tab Take by mouth . Active magnesium 250 mg Tab Take by mouth . 0 Active magnesium 250 MG tablet Take by mouth. 0 Active Comment on above: Take 1 tablet by taryn twice daily. 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 10 tablet 0 02/18/2022 02/28/2022 Active Start: 08-23-2021 End: 09-13-2021 take 1 tablet by mouth once daily meloxicam (MOBIC) 15 MG tablet Indications: Plantar fasciitis Take 1 (one) tablet (15 mg total) by mouth daily for 21 days . 21 tablet 0 08/23/2021 09/13/2021 Active Start: 04-26-2021 End: 05-26-2021 take 1 tablet by mouth once daily meloxicam (MOBIC) 15 MG tablet Indications: Plantar fasciitis Take 1 (one) tablet (15 mg total) by mouth daily . 30 tablet 0 04/26/2021 05/26/2021 Active metFORMIN hydrochloride 1000 mg oral tablet (20 sources) Biguanide Start: 03-28-2020 End: 12-09-2024 take 1 tablet by mouth twice daily Metformin 1,000 mg tablet Active 1000 mg PO TWICE A DAY January 18, 2023 12:00am diabetic Complies with drug therapy metFORMIN HCl - 1000 MG Oral Tablet Quantity: 0 Refills: 0 Ordered: 02-Nov-2019 DO Active take 1 tablet by taryn th twice daily at mealtime metFORMIN (GLUCOPHAGE) 500 MG tablet Robert e 500 mg by mouth 2 (two) times a day with meals . 0 Active Comment on above: Take 1 tablet by taryn th twice daily with meals. Take 1 tablet by taryn th two times a day with meals. Multiple Vitamins-Minerals (HAIR SKIN AND NAILS FORMULA PO) (6 sources) Multiple Vitamin s-Minerals (HAIR SKIN AND NAILS FORMULA PO) Take by mouth. Active Multiple Vitamin s-Minerals (HAIR SKIN AND NAILS FORMULA PO) Take by mouth. 0 Active Multiple Vitamins-Minerals ( Multivitamin Adult) chewable tablet (6 sources) Multiple Vitamin s-Minerals (Multivitamin Adult) chewable tablet Chew. Active Multiple Vitamin s-Minerals (Multivitamin Adult) chewable tablet Chew. 0 Active multivitamin (multivitamin) per tablet (9 sources) take 1 tablet by taryn th once daily multivitamin (multivitamin) per tablet Take 1 tablet by mouth daily . 0 Active multivitamin (THERAGRAN) per tablet (20 sources) take 1 tablet by taryn th once daily in the morning multivitamin (THERAGRAN) per tablet Take 1 (one) tablet by mouth every morning . Active take 1 tablet by taryn th once daily in the morning multivitamin (THERAGRAN) per tablet Take 1 (one) tablet by mouth every morning . 0 Active take 1 tablet by mouth once jami y multivitamin (THERAGRAN) per tablet Take 1 tablet by mouth daily . 0 Active multivitamin with minerals (HAIR,SKIN AND NAILS ORAL) (14 sources) take 2 tablets by mo ut once daily in the morning multivitamin with minerals (HAIR,SKIN AND NAILS ORAL) Take 2 tablets by mouth every morning . Active take 2 tablets by mo ut once daily in the morning multivitamin with minerals (HAIR,SKIN AN D NAILS ORAL) Take 2 tablets by mouth every morning . 0 Active Multivitamin With Minerals ( Hair,Skin And Nails) Tablet (15 sources) Start: 01-18-2023 Start: 01-18-2023 Multivitamin W ith Minerals (Hair,Skin And Nails) Tablet Active 2 {tbl} PO DAILY January 18, 2023 12:00am Check with primary doctor Start: 01-18-2023 Multivitamin W ith Minerals (Hair,Skin And Nails) Tablet Active 2 {tbl} PO DAILY January 18, 2023 12:00am Start: 01-18-2023 take 2 tablets by mo uth once daily Multivitamin With Minerals (Hair,Skin And Nails) Tablet Active 2 TABLET PO DAILY January 17, 2023 11:00pm Start: 01-18-2023 take 2 tablets by mo uth once daily Multivitamin With Minerals (Hair,Skin And Nails) Tablet Active 2 TABLET PO DAILY January 18, 2023 12:00am Start: 01-18-2023 take 1 tablet by taryn once daily Multivitamin With Minerals (Hair,Skin And Nails) Tablet Active 1 TABLET PO DAILY January 18, 2023 12:00am Arrfqjnifypu-Uk-Vocq-Mineral s (7 sources) Start: 01-18-2023 take 2 tablets by mouth once daily Zglsvsmqbgmp-Te-Xzqu-Minerals Active 2 TABLET PO DAILY January 17, 2023 11:00pm Start: 01-18-2023 take 2 tablets by mo uth once daily Jmpbdtfjfmof-Ww-Rref-Minerals Active 2 TABLET PO DAILY January 18, 2023 12:00am Rauaciurrmhh-Wk-Btnx-Mineral s 18-0.4 mg Tablet (8 sources) Start: 01-18-2023 Start: 01-18-2023 Multivitamin-C l-Czjj-Wviaymvi 18-0.4 mg Tablet Active 2 {tbl} PO DAILY January 18, 2023 12:00am health maintenance Start: 01-18-2023 Multivitamin-C e-Danq-Uzelwzgn 18-0.4 mg Tablet Active 2 {tbl} PO DAILY January 18, 2023 12:00am MV-MN/FOLIC ACID/CALCIUM/VIT K (ONE-A-DAY WOMEN'S 50 PLUS ORAL) (20 sources) MV-MN/FOLIC ACID /CALCIUM/VIT K (ONE-A-DAY WOMEN'S 50 PLUS ORAL) Take by mouth. Active MV-MN/FOLIC ACID /CALCIUM/VIT K (ONE-A-DAY WOMEN'S 50 PLUS ORAL) Take by mouth. 0 Active Comment on above: Take by mouth. nitrofurantoin, macrocrystals 25 mg / nitrofurantoin, monohydrate 75 mg oral capsule (1 source) Nitrofuran Antibacterial Start: End: take 1 capsule by mouth twice daily at mealtime nitrofurantoin monohydrate and macrocrystal (MACROBID) 100 mg capsule Indications: Recurrent UTI (urinary tract infection) Take 1 capsule by mouth two times a day with meals for 7 days. 14 capsule 0 12/11/2023 12/18/2023 Active Comment on above: Take 1 capsule by [facility] two times a day with meals for 7 days. omeprazole 20 mg delayed release oral capsule (10 sources) Proton Pump Inhibitor Start: omeprazole (PRILOSEC) 20 MG capsule Take 1 (one) capsule (20 mg total) by mouth . 12/28/2013 Active oxyCODONE hydrochloride 5 mg oral capsule (1 source) Opioid Agonist Start: take 1 capsule by mouth every eight hours as needed for pain pantoprazole 40 mg delayed release oral tablet (20 sources) Proton Pump Inhibitor Start: take 1 tablet by mouth once daily Pantoprazole 40 mg tablet,delayed release (DR/EC) Active 40 mg PO daily December 29, 2024 10:07am Complies with drug therapy Start: 03-20-2023 End: 12-29-2024 take 1 tablet by mouth twice daily Pantoprazole 40 mg tablet,delayed release (DR/EC) Discontinued 40 mg PO TWICE A DAY July 04, 2024 12:00am December 29, 2024 10:08am Start: 03-28-2020 End: 07-04-2024 take 1 tablet by mouth once daily Pantoprazole 40 mg tablet,delayed release (DR/EC) Discontinued 40 mg PO DAILY January 18, 2023 12:00am March 20, 2023 10:43am health maintenance Pantoprazole Sod ium 40 MG Oral Tablet Delayed Release Quantity: 0 Refills: 0 Ordered: 02-Nov-2019 DO Active pantoprazole sod ium (PANTOPRAZOLE ORAL) Take by mouth daily . 0 Active Comment on above: Take 1 tablet by taryn th once daily. Take 1 tablet by taryn th twice daily. Take 1 tablet by taryn th two times a day. polyethylene glycol 3350 [id number] mg / potassium chloride 2970 mg / sodium bicarbonate 6740 mg / sodium chloride 5860 mg / sodium sulfate 66499 mg powder for oral solution (20 sources) Osmotic Laxative Start: 06-17-2022 GaviLyte-G 236-22.74-6.74 -5.86 gram solution 06/17/2022 Active Start: 06-17-2022 End: 06-17-2022 peg 3350-Electrolytes (GOLYT DENNIS) 236-22.74-6.74 -5.86 gram suspension Take 4,000 mL by mouth one time only for 1 dose. 1 Each 0 06/17/2022 06/17/2022 Active Comment on above: Take 4,000 mL by taryn th one time only for 1 dose. ramelteon 8 mg oral tablet (5 sources) Melatonin Receptor Agonist Start: 05-09-20 take 1 tablet by mouth once daily as needed for sleep ramelteon (ROZEREM) 8 mg tablet Take 1 (one) tablet (8 mg total) by mouth nightly as needed FOR SLEEP . 0 05/09/2022 Active rizatriptan 10 mg disintegrating oral tablet (20 sources) Serotonin-1b and Serotonin-1d Receptor Agonist Start: 03-15-20 End: 04-14-20 rizatriptan INSPECTOR AND HAND PACKAGER (Maxalt-INSPECTOR AND HAND PACKAGER) 10 MG disintegrating tablet Take 1 tablet (10 mg) by mouth Once as needed for migraine. May repeat in 2 hours if unresolved. Do not exceed 20 mg in 24 hours. 9 tablet 11 03/15/2025 04/14/2025 Active Start: 12-28-2013 End: 03-15-2024 take 1 tablet by mouth every two hours as needed for headache Rizatriptan 10 MG tablet Active 10 mg PO NEEDED as needed for Migraine Headache December 28, 2013 12:00am 1 tab at onset of headache, may repeat in 2 hours Complies with drug therapy Start: 12-28-2013 take 10 mg by mouth once daily Rizatriptan Active 10 MG PO DAILY December 28, 2013 12:00am traZODone hydrochloride 50 mg oral tablet (1 source) Serotonin Reuptake Inhibitor Start: 12-28-2013 take 50 mg by mouth at bedtime Trazodone Active 50 MG PO AT BEDTIME December 28, 2013 12:00am triamcinolone acetonide 0.25 mg/ml topical cream (14 sources) Corticosteroid Start: 03-12-2023 triamcinolone (KENALOG) 0.025 % cream 03/12/2023 Active Start: 03-12-2023 End: 06-07-2024 triamcinolone (KENALOG) 0.02 5 % cream Indications: Skin irritation Apply to affected area twice daily. 15 g 1 03/12/2023 06/07/2024 Discontinued (Course of therapy completed) Comment on above: Apply to affected ar ea twice daily. Vit C,P-Dy-Qejnj-Lutei n-Zeaxan (Preservision Areds-2) 250-90-40-1 mg Capsule (15 sources) Start: 01-18-2023 take 2 capsules by mouth twice daily Vit C,K-Xy-Mjuwa-Lutei n-Zeaxan (Preservision Areds-2) 250-90-40-1 mg Capsule Active 1 {tbl} PO TWICE A DAY January 18, 2023 12:00am Check with primary doctor Complies with drug therapy Start: 01-18-2023 take 2 capsules by m outh twice daily Vit C,F-Zz-Rjuyz-Lutein-Zeaxan (Preservision Areds-2) 250-90-40-1 mg Capsule Active 1 {tbl} PO TWICE A DAY January 18, 2023 12:00am Check with primary doctor Start: 01-18-2023 take 2 capsules by m outh twice daily Vit C,K-Sc-Asvfa-Lutein-Zeaxan (Preservision Areds-2) 250-90-40-1 mg Capsule Active 1 {tbl} PO TWICE A DAY January 18, 2023 12:00am Start: 01-18-2023 Vit C,E-Zn-Transmission Calibration Engineer nv-Tuuhic-Avxkqv (Preservision Areds-2) 250-90-40-1 mg Capsule Active 1 TABLET PO TWICE A DAY January 17, 2023 11:00pm Start: 01-18-2023 Vit C,E-Zn-Transmission Calibration Engineer zw-Kgvsqf-Szapxi (Preservision Areds-2) 250-90-40-1 mg Capsule Active 1 TABLET PO TWICE A DAY January 18, 2023 12:00am Start: 04-02-2023 Vit C,E-Zn-Transmission Calibration Engineer qk-Lpjzcp-Gniwlp (Preservision Areds-2) 250-90-40-1 mg Capsule Active 2 TABLET PO TWICE A DAY January 18, 2023 12:00am Vit C-Vit T0-Zzpv-Cbvv No.35 8 (Immune Power) 62.5 mg-15 mcg- 2.75 mg-50 mg tablet,chewable (8 sources) Start: 12-29-2024 take 1 tablet by taryn once daily Start: 12-29-2024 take 1 tablet by taryn th once daily Vit C-Vit J1-Xwks-Vewx No.358 (Immune Power) 62.5 mg-15 mcg- 2.75 mg-50 mg tablet,chewable Active 2 {tbl} PO daily December 29, 2024 12:00am vit C/E/Zn/coppr/lutein/zeax an (PRESERVISION AREDS-2 ORAL) (14 sources) vit C/E/Zn/coppr /lutein/zeaxan (PRESERVISION AREDS-2 ORAL) Take by mouth 2 (two) times a day . Active vit C/E/Zn/coppr /lutein/zeaxan (PRESERVISION AREDS-2 ORAL) Take by mouth 2 (two) times a day . 0 Active VIT C/NARCISA AC/LUT/COPPER/ZNO X (PRESERVISION LUTEIN ORAL) (20 sources) take 1 tablet by mouth twice daily before mealtime VIT C/NARCISA AC/LUT/COPPER/ZNOX (PRESERVISION LUTEIN ORAL) Take 1 tablet by mouth twice daily. Active take 1 tablet by taryn twice daily before mealtime VIT C/NARCISA AC/LUT/COPPER/ZNOX (PRESERVIS ION LUTEIN ORAL) Take 1 tablet by mouth twice daily. 0 Active Comment on above: Take 1 tablet by taryn twice daily. vitamin C-biotin (EUVQ-HFAO-FPSKO, VIT C-BIOTIN,) 50 mg -1,250 mcg chew (20 sources) Start: 02-07-2021 take 2 tablets by mouth once daily vitamin C-biotin (QPLL-CZRJ-DDUXZ, VIT C-BIOTIN,) 50 mg -1,250 mcg chew Take 2 tablets by mouth once daily. 02/07/2021 Active Start: 02-07-2021 take 2 tablets by [facility] once daily vitamin C-biotin (HORB-YHAU-FLPDU, VIT C-BIOTIN,) 50 mg -1,250 mcg chew Take 2 tablets by mouth once daily. 0 02/07/2021 Active Comment on above: Take 2 tablets by [facility] once daily. zolpidem tartrate 5 mg oral tablet (1 source) gamma-Aminobutyric Acid-ergic Agonist Start: 08-15-2020 take 1-2 tablets by mouth at bedtime zolpidem (AMBIEN) 5 MG tablet TAKE 1 TO 2 TABLETS BY MOUTH AT BEDTIME 0 08/15/2020 Active Completed/Discontinued Medications Medication Drug Class(es) Dates Sig (Normalized) Sig (Original) aspirin 500 mg / caffeine 32.5 mg oral tablet (1 source) Platelet Aggregation Inhibitor, Nonsteroidal Anti-inflammatory Drug, Central Nervous System Stimulant, Methylxanthine Start: 12-02-2017 End: 11-26-2021 take 1 tablet by mouth twice daily aspirin-caffeine (LUIS BACK AND BODY) 500-32.5 mg tab Take 1 tablet by mouth twice daily. 12/02/2017 11/26/2021 Discontinued benzonatate 100 mg oral capsule (1 source) Non-narcotic Antitussive Start: 12-14-2019 End: 11-26-2021 take 2 capsules by mouth three times daily as needed benzonatate (TESSALON PERLE) 100 mg capsule Indications: Sinobronchitis Take 2 capsules by mouth three times daily as needed. 42 capsule 12/14/2019 11/26/2021 Discontinued betamethasone 0.0005 mg/mg topical ointment (1 source) Corticosteroid Start: 09-16-2017 End: 11-26-2021 betamethasone dipropionate 0.05 % ointment Apply 1 Tube to affected area twice daily. 1 Tube 09/16/2017 11/26/2021 Discontinued Ca Carb-Mag Cmb 11-D3-Zn Sulf [id number] sl-jwzo-uy-mg tab (1 source) Start: 12-01-2018 End: 11-26-2021 take 1 tablet by mouth once daily Ca Carb-Mag Cmb 11-D3-Zn Sulf [phone] av-izvr-wa-mg tab Take 1 tablet by mouth once daily. 12/01/2018 11/26/2021 Discontinued Billy-Mag TABS (5 sources) Billy-Mag TABS Quantity: 0 Refills: 0 Ordered: 02-Nov-2019 DO Active cefdinir 300 mg oral capsule (15 sources) Cephalosporin Antibacterial Start: 01-21-2023 End: 03-20-2023 take 1 capsule by mouth twice daily Cefdinir 300 mg capsule Discontinued 300 mg PO TWICE A DAY 4 2 0 January 21, 2023 12:00am March 20, 2023 10:02am cider vinegar 300 mg oral tablet (20 sources) Start: 01-18-2023 End: 11-07-2024 take 1 tablet by mouth once daily Apple Cider Vinegar 300 mg Tablet Discontinued 300 mg PO DAILY January 18, 2023 12:00am November 07, 2024 9:56am health maintence On Hold: None Start: 02-24-2018 End: 12-09-2024 take 1 tablet by mouth twice daily Apple Cider Vinegar 300 mg tab Take 1 tablet by mouth twice daily. 02/24/2018 12/09/2024 Discontinued (Discontinued by another Health Care Provider) Comment on above: Take 1 tablet by taryn th twice daily. CoQ10 CAPS (5 sources) CoQ10 CAPS Quant ity: 0 Refills: 0 Ordered: 07-Nov-2020 DO Active Cranberry Soft CHEW (5 sources) Cranberry Soft C HEW Quantity: 0 Refills: 0 Ordered: 07-Nov-2020 DO Active dapagliflozin 5 mg oral tablet (3 sources) Sodium-Glucose Cotransporter 2 Inhibitor Start: End: take 1 tablet by mouth once daily at breakfast dapagliflozin (FARXIGA) 5 mg tablet Indications: Type 2 diabetes mellitus without complication, without long-term current use of insulin ([facility]) Take 1 tablet by mouth daily with breakfast. 30 tablet 5 11/20/2022 01/06/2023 Discontinued Comment on above: Take 1 tablet by taryn th daily with breakfast. dulaglutide (TRULICITY) 3 mg/0.5 mL pen injector (14 sources) Start: End: inject 3 mg by subcutaneous injection every week dulaglutide (TRULICITY) 3 mg/0.5 mL pen injector Indications: Type 2 diabetes mellitus without complication, without long-term current use of insulin ([facility]) Inject 3 mg subcutaneously one time a week. 6 mL 3 12/04/2022 02/18/2023 Discontinued Start: 12-04-2022 inject 3 mg by subcu taneous injection every week dulaglutide (TRULICITY) 3 mg/0.5 mL pen injector Indications: Type 2 diabetes mellitus without complication, without long-term current use of insulin ([facility]) Inject 3 mg subcutaneously one time a week. 6 mL 3 12/04/2022 Active Start: 02-25-2022 End: 12-04-2022 inject 3 mg by subcutaneous injection every week dulaglutide (TRULICITY) 3 mg/0.5 mL pen injector Indications: Type 2 diabetes mellitus without complication, without long-term current use of insulin ([facility]) Inject 3 mg subcutaneously one time a week. 6 mL 3 02/25/2022 12/04/2022 Discontinued Start: 02-25-2022 inject 3 mg by subcu taneous injection every week dulaglutide (TRULICITY) 3 mg/0.5 mL pen injector Indications: Type 2 diabetes mellitus without complication, without long-term current use of insulin ([facility]) Inject 3 mg subcutaneously one time a week. 6 mL 3 02/25/2022 Active Comment on above: Inject 3 mg subcutan eously one time a week. dulaglutide (TRULICITY) 4.5 mg/0.5 mL pen injector (8 sources) Start: End: inject 4.5 mg by subcutaneous injection every week dulaglutide (TRULICITY) 4.5 mg/0.5 mL pen injector Indications: Type 2 diabetes mellitus without complication, without long-term current use of insulin ([facility]) Inject 4.5 mg subcutaneously one time a week. 6 mL 3 03/14/2025 05/15/2025 Discontinued (Dosage adjustment) Start: 03-14-2025 inject 4.5 mg by sub cutaneous injection every week dulaglutide (TRULICITY) 4.5 mg/0.5 mL pen injector Indications: Type 2 diabetes mellitus without complication, without long-term current use of insulin ([facility]) Inject 4.5 mg subcutaneously one time a week. 6 mL 3 03/14/2025 Active Start: 03-10-2025 End: 03-14-2025 inject 4.5 mg by subcutaneous injection every week dulaglutide (TRULICITY) 4.5 mg/0.5 mL pen injector Indications: Type 2 diabetes mellitus without complication, without long-term current use of insulin ([facility]) Inject 4.5 mg subcutaneously one time a week. 6 mL 3 03/10/2025 03/14/2025 Discontinued Start: 12-09-2024 inject 4.5 mg by sub cutaneous injection every week dulaglutide (TRULICITY) 4.5 mg/0.5 mL pen injector Indications: Type 2 diabetes mellitus without complication, without long-term current use of insulin ([facility]) Inject 4.5 mg subcutaneously one time a week. 6 mL 3 12/09/2024 Active Erythromycin PADS (5 sources) Erythromycin PAD S Quantity: 0 Refills: 0 Ordered: 02-Nov-2019 DO Active fexofenadine hydrochloride 180 mg oral tablet (20 sources) Histamine-1 Receptor Antagonist Start: End: take 1 tablet by mouth once daily Fexofenadine 180 mg Tablet Discontinued 180 mg PO DAILY January 18, 2023 12:00am September 28, 2024 11:08am Check with primary doctor Start: 10-30-2020 End: 04-29-2021 take 1 tablet by mouth once daily fexofenadine (JACQUELINE ALLERGY) 180 mg tablet Indications: Cough Take 1 tablet by mouth once daily. 30 tablet 5 10/30/2020 04/29/2021 Discontinued Comment on above: Take 1 tablet by taryn th once daily. glimepiride 2 mg oral tablet (20 sources) Sulfonylurea Start: 06-11-20 End: 12-11-19 take 1 tablet by mouth once daily at breakfast glimepiride (AMARYL) 2 mg tablet Indications: Type 2 diabetes mellitus without complication, without long-term current use of insulin ([facility]) Take 1 tablet by mouth daily with breakfast. 90 tablet 3 12/11/2023 12/11/2023 Discontinued Start: 01-18-2023 take 2 mg by mouth once daily Glimepiride Active 2 MG PO DAILY January 18, 2023 12:00am Start: 01-18-2023 End: 06-11-2023 take 4 mg by mouth once daily Glimepiride Active 4 MG PO DAILY January 18, 2023 12:00am Start: 02-25-2022 End: 07-04-2024 take 2 mg by mouth once daily Glimepiride 4 mg Tablet Discontinued 2 mg PO DAILY January 18, 2023 12:00am July 04, 2024 3:03pm Check with primary doctor Start: 10-30-2020 End: 05-28-2021 take 2 tablets by mouth once daily at breakfast glimepiride (AMARYL) 4 mg tablet Take 2 tablets by mouth daily with breakfast. 60 tablet 11 10/30/2020 05/28/2021 Discontinued Start: 08-19-2020 take 1 tablet by taryn th once daily at breakfast glimepiride (AMARYL) 4 MG tablet TAKE 1 TABLET BY MOUTH ONCE DAILY WITH BREAKFAST 0 08/19/2020 Active GLIMEPIRIDE ORAL Take by mouth daily . 0 Active Comment on above: Take 2 tablets by mo uth daily with breakfast. Take 1 tablet by taryn th daily with breakfast. Hair Skin Nails CAPS (5 sources) Hair Skin Nails CAPS Quantity: 0 Refills: 0 Ordered: 02-Nov-2019 DO Active indomethacin 50 mg oral capsule (12 sources) Nonsteroidal Anti-inflammatory Drug End: 02-19-20 22 take 1 capsule by mouth three times daily indomethacin (INDOCIN) 50 MG capsule Take 50 mg by mouth 3 (three) times a day For 7 days, take one week's worth fo medicine for acute gout flares . 0 02/18/2022 Discontinued (Patient's Request) lifitegrast 50 mg/ml ophthalmic solution (20 sources) Lymphocyte Function-Associated Antigen-1 Antagonist Start: 09-29-20 19 End: 06-11-20 23 take 1 drop(s) into the eye(s) twice daily XIIDRA 5 % dpet Use 1 Drop in both eyes twice daily. 09/29/2019 06/11/2023 Discontinued Start: 09-29-2019 take 1 drop(s) into the eye(s) twice daily XIIDRA 5 % dpet Use 1 Drop in both eyes twice daily. 0 09/29/2019 Active Xiidra 5 % Ophth almic Solution Quantity: 0 Refills: 0 Ordered: 02-Nov-2019 DO Active Comment on above: Use 1 Drop in both e yes twice daily. loteprednol etabonate (1 source) End: 11-26-2021 LOTEPREDNOL ETABONATE (LOTEMAX OPHTHALMIC) Use in eyes. 11/26/2021 Discontinued Multi For Her TABS (5 sources) Multi For Her TA BS Quantity: 0 Refills: 0 Ordered: 02-Nov-2019 DO Active nadolol 40 mg oral tablet (20 sources) beta-Adrenergic Ibeth Start: 03-02-2024 End: 09-28-2024 Nadolol 40 mg tablet Discontinued 40 mg PO DAILY 90 90 6 July 15, 2024 10:38am September 28, 2024 11:10am Hold for heart less than 50 or systolic blood pressure less than 100 mmHg. Start: 12-28-2013 End: 12-09-2024 take 1 tablet by mouth once daily Nadolol 40 mg Tablet Discontinued 40 mg PO DAILY 30 0 January 21, 2023 12:00am March 20, 2023 10:03am Comment on above: Take 1 tablet by taryn th once daily. nystatin [id number] unt/ml oral suspension (15 sources) Polyene Antifungal Start: 01-22-20 End: 03-20-20 take [id number] [IU] by mouth four times daily Nystatin 100,000 unit/mL Suspension Discontinued [id number] U PO 4 TIMES DAILY 60 3 0 January 21, 2023 12:00am March 20, 2023 10:03am ondansetron 4 mg disintegrating oral tablet (20 sources) Serotonin-3 Receptor Antagonist Start: 09-25-20 End: 11-26-19 take 1 tablet by mouth every six hours as needed for nausea ondansetron orally disintegrating (ZOFRAN ODT) 4 mg disintegrating tablet DISSOLVE 1 TABLET IN MOUTH EVERY 6 HOURS NEEDED FOR NAUSEA 09/26/2019 11/26/2021 Discontinued Ondansetron HCl - 4 MG Oral Tablet Quantity: 0 Refills: 0 Ordered: 02-Nov-2019 DO Active ONDANSETRON ORAL Take by mouth . 0 Active PreserVision AREDS 2 Oral Capsule (5 sources) PreserVision ARE DS 2 Oral Capsule Quantity: 0 Refills: 0 Ordered: 02-Nov-2019 DO Active rifAXIMin 550 mg oral tablet (20 sources) Rifamycin Antibacterial Start: 09-14-20 End: 05-15-20 take 1 tablet by mouth twice daily Rifaximin (Xifaxan) 550 mg tablet Discontinued 550 mg PO TWICE A DAY 60 30 6 May 15, 2025 1:37pm May 15, 2025 1:38pm Comment on above: Take 550 mg by mouth two times a day. rosuvastatin calcium 10 mg oral tablet (2 sources) HMG-CoA Reductase Inhibitor Start: 12-04-19 End: 01-07-20 take 1 tablet by mouth once daily rosuvastatin (CRESTOR) 10 mg tablet Indications: Hyperlipidemia, mixed Take 1 tablet by mouth once daily. 30 tablet 5 12/04/2022 01/06/2023 Discontinued (Changing Therapy/Dosage Form) Comment on above: Take 1 tablet by taryn th once daily. spironolactone 25 mg oral tablet (20 sources) Aldosterone Antagonist Start: 12-02-19 End: 03-15-20 take 1 tablet by mouth once daily Spironolactone 25 mg tablet Discontinued 25 mg PO DAILY 30 17 05July 15, 2024 10:38am March 15, 2025 9:26am Hold if serum potassium is more than 5.0. Start: 12-02-2023 take 0.5 tablet by m out once daily spironolactone (ALDACTONE) 25 mg tablet Take 25 mg by mouth once daily. Take half pill daily 12/02/2023 Active Start: 12-02-2023 End: 07-15-2024 Spironolactone 25 mg tablet Discontinued 12.5 mg PO DAILY 30 March 15, 2024 4:19pm July 15, 2024 10:39am Hold if serum potassium is more than 5.0. Start: 12-02-2023 take 12.5 mg by mout h once daily Spironolactone Active 12.5 MG PO DAILY December 02, 2023 1:00am Hold if serum potassium is more than 5.0. Comment on above: Take 25 mg by mouth once daily. Take half pill daily sucralfate 1000 mg oral tablet (8 sources) Aluminum Complex Start: 07-13-2024 End: 09-07-2024 take 1 tablet by mouth three times daily Sucralfate 1 gram tablet Discontinued 1 g PO THREE TIMES A DAY 168 56 0 July 13, 2024 12:00am September 06, 2024 1:00am September 07, 2024 1:17am topiramate 100 mg oral tablet (17 sources) Start: 12-28-2013 take 50 mg by mouth once daily Topiramate Active 50 MG PO DAILY December 28, 2013 12:00am Start: 12-28-2013 End: 03-20-2023 take 1 tablet by mouth once daily Topiramate 100 MG tablet Discontinued 100 mg PO DAILY December 28, 2013 12:00am March 20, 2023 10:04am Check with primary doctor Turmeric Curcumin Oral Capsule (5 sources) Turmeric Curcumi n Oral Capsule Quantity: 0 Refills: 0 Ordered: 02-Nov-2019 DO Active turmeric root extract 500 mg cap (1 source) Start: 12-01-2018 End: 11-26-2021 take 1 capsule by mouth once daily turmeric root extract 500 mg cap Take 1 capsule by mouth once daily. 12/01/2018 11/26/2021 Discontinued ubidecarenone 200 mg oral capsule (20 sources) Start: 01-18-2023 End: 11-07-2024 Coenzyme Q10 (Co Q-10) 200 mg Capsule Discontinued 200 mg PO DAILY January 18, 2023 12:00am November 07, 2024 9:56am Check with primary doctor On Hold: None Start: 02-07-2021 End: 12-09-2024 take 2 capsules by mouth once daily coenzyme Q10 (CO Q-10) 100 mg cap capsule Take 2 capsules by mouth once daily. 02/07/2021 12/09/2024 Discontinued (Discontinued by another Health Care Provider) take 1 capsule by mo ut once daily co-enzyme Q-10 30 MG capsule Take 30 mg by mouth daily. Active Comment on above: Take 2 capsules by m outh once daily. Vit C-Zinc Citrate-Elderberry (Sambucus Elderberry) 30-1.1-25 mg Tablet,Chewable (15 sources) Start: 01-18-2023 End: 09-28-2024 Vit C-Zinc Citrate-Elderberry (Sambucus Elderberry) 30-1.1-25 mg Tablet,Chewable Discontinued 1 {tbl} PO DAILY January 18, 2023 12:00am September 28, 2024 10:49am Check with primary doctor Start: 01-18-2023 End: 09-28-2024 Vit C-Zinc Citrate-Elderberr y (Sambucus Elderberry) 30-1.1-25 mg Tablet,Chewable Discontinued 1 {tbl} PO DAILY January 18, 2023 12:00am September 28, 2024 10:49am Start: 01-18-2023 take 1 tablet by taryn th once daily Vit C-Zinc Citrate-Elderberry (Sambucus Elderberry) 30-1.1-25 mg Tablet,Chewable Active 1 TABLET PO DAILY January 17, 2023 11:00pm Start: 01-18-2023 take 1 tablet by taryn th once daily Vit C-Zinc Citrate-Elderberry (Sambucus Elderberry) 30-1.1-25 mg Tablet,Chewable Active 1 TABLET PO DAILY January 18, 2023 12:00am Vitamin C TABS (5 sources) Vitamin C TABS Q uantity: 0 Refills: 0 Ordered: 02-Nov-2019 DO Active Problems Active Problems Problem Classification Problem Date Documented Da te Episodic/Chronic Coagulation and hemorrhagic disorders (20 sources) Thrombocytopenic disorder; Translations: [Thrombocytopenia, unspecified] Onset: 3 Chronic Deficiency and other anemia (1 source) Pancytopenia; Translations: [Other pancytopenia] 08-07-2025 Chronic Diabetes mellitus with complications (16 sources) Polyneuropathy due to type 2 diabetes mellitus; Translations: [Type 2 diabetes mellitus with diabetic polyneuropathy] Onset: 1 Chronic Diabetes mellitus without complication (20 sources) Diabetes mellitus; Translations: [Type 2 diabetes mellitus without complications] Onset: 8 04-14-2021 Chronic Disorders of lipid metabolism (9 sources) Mixed hyperlipidemia; Translations: [Mixed hyperlipidemia] Onset: 5 Chronic Esophageal disorders (20 sources) Gastroesophageal reflux disease; Translations: [Esophageal reflux] Onset: 2 06-26-2022 Chronic Fracture of lower limb (20 sources) Metatarsal bone fracture; Translations: [Fracture of unspecified metatarsal bone(s), unspecified foot, initial encounter for closed fracture] Onset: 2 04-14-2021 Episodic Genitourinary symptoms and ill-defined conditions (1 source) Increased frequency of urination; Translations: [Frequency of micturition] 12-11-2023 Episodic Gout and other crystal arthropathies (20 sources) 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; Translations: [Gout due to renal impairment, unspecified site] Onset: 9 04-14-2021 Chronic Headache; including migraine (20 sources) Refractory migraine without aura; Translations: [Migraine without aura, intractable, without status migrainosus] Onset: 6 05-21-2016 Chronic Headache; including migraine (20 sources) Headache; Translations: [Headache] Onset: 6 04-14-2021 Episodic Immunizations and screening for infectious disease (1 source) Vaccination needed; Translations: [Encounter for immunization] 06-11-2023 Episodic Miscellaneous mental health disorders (4 sources) Primary insomnia; Translations: [Primary insomnia] Onset: 5 03-15-2024 Chronic Nonmalignant breast conditions (20 sources) Fibrocystic disease of breast; Translations: [Diffuse cystic mastopathy of unspecified breast] Onset: 8 09-04-2008 Chronic Nonmalignant breast conditions (5 sources) Breast lump; Translations: [Lump or mass in breast] Episodic Osteoarthritis (3 sources) Arthritis of midtarsal joint; Translations: [Primary osteoarthritis, unspecified ankle and foot] Onset: 5 09-01-2023 Chronic Other aftercare (3 sources) Patient encounter status; Translations: [Encounter for therapeutic drug level monitoring] Episodic Other and unspecified benign neoplasm (2 sources) History of polyp of colon; Translations: [Personal history of colonic polyps] Episodic Other bone disease and musculoskeletal deformities (6 sources) Segmental and somatic dysfunction; Translations: [Segmental and somatic dysfunction of cervical region] Onset: 5 05-19-2025 Episodic Other bone disease and musculoskeletal deformities (2 sources) Segmental and somatic dysfunction of thoracic region; Translations: [Segmental and somatic dysfunction of thoracic region] Onset: 5 Episodic Other bone disease and musculoskeletal deformities (1 source) Segmental and somatic dysfunction of cervical region; Translations: [Segmental and somatic dysfunction of cervical region] Onset: 5 Episodic Other bone disease and musculoskeletal deformities (2 sources) Segmental and somatic dysfunction of lumbar region; Translations: [Segmental and somatic dysfunction of lumbar region] Onset: 5 Episodic Other circulatory disease (1 source) Choking sensation; Translations: [Other specified symptoms and signs involving the circulatory and respiratory systems] Episodic Other circulatory disease (1 source) Elevated blood-pressure reading without diagnosis of hypertension; Translations: [Elevated blood-pressure reading, without diagnosis of hypertension] 08-07-2025 Episodic Other complications of ; puerperium affecting management of mother (5 sources) Deliveries by ; Translations: [ delivery, without mention of indication, unspecified as to episode of care or not applicable] Episodic Comment on above: [birth year]/08/1986; 40 WEEKS; MALE; 8LBS 13OZ; Other connective tissue disease (20 sources) Pain in right foot; Translations: [Pain in right foot] Episodic Other connective tissue disease (20 sources) Plantar fasciitis of left foot; Translations: [Plantar fascial fibromatosis] Episodic Other connective tissue disease (9 sources) Plantar fasciitis; Translations: [Plantar fascial fibromatosis] Episodic Other connective tissue disease (1 source) Digital mucous cyst of left hand; Translations: [Ganglion, left hand] Episodic Other connective tissue disease (1 source) Fibromatosis of plantar fascia of right foot; Translations: [Plantar fascial fibromatosis] Episodic Other connective tissue disease (4 sources) Bilateral fibromatosis of plantar fascia of feet; Translations: [Plantar fascial fibromatosis] Episodic Other connective tissue disease (2 sources) Peroneal tendinitis of right lower limb; Translations: [Peroneal tendinitis, right leg] 09-01-2023 Episodic Other disorders of stomach and duodenum (15 sources) Gastroparesis syndrome; Translations: [Gastroparesis] 03-07-2024 Episodic Other ear and sense organ disorders (20 sources) Ear problem; Translations: [Unspecified disorder of ear, unspecified ear] 04-14-2021 Episodic Other eye disorders (20 sources) Disorder of eye; Translations: [Unspecified disorder of eye and adnexa] Episodic Other female genital disorders (2 sources) Finding of pelvis; Translations: [Unspecified condition associated with female genital organs and menstrual cycle] 04-10-2025 Episodic Other fractures (8 sources) Fracture of rib; Translations: [Fracture of one rib, unspecified side, initial encounter for closed fracture] 03-07-2024 Episodic Other gastrointestinal disorders (20 sources) Dysphagia; Translations: [Dysphagia, unspecified] 09-28-2024 Episodic Other liver diseases (20 sources) Steatosis of liver; Translations: [Fatty (change of) liver, not elsewhere classified] Onset: 8 03-10-2018 Chronic Other liver diseases (20 sources) Cirrhosis of liver; Translations: [Unspecified cirrhosis of liver] Onset: 3 01-19-2023 Chronic Other liver diseases (14 sources) Unspecified cirrhosis of liver; Translations: [Cirrhosis of liver without mention of alcohol] Onset: 3 01-21-2023 Chronic Other lower respiratory disease (3 sources) Cough; Translations: [Cough] Episodic Other nervous system disorders (1 source) Numbness; Translations: [Anesthesia of skin] 06-28-2025 Episodic Other non-traumatic joint disorders (2 sources) Other specified arthritis, unspecified site; Translations: [Inflammatory arthritis] Onset: 5 Chronic Other non-traumatic joint disorders (1 source) Ankle pain; Translations: [Pain in unspecified ankle and joints of unspecified foot] Episodic Other non-traumatic joint disorders (2 sources) Acute ankle pain; Translations: [Pain in right ankle and joints of right foot] 09-01-2023 Episodic Other non-traumatic joint disorders (1 source) Pain in right knee; Translations: [Right knee pain, unspecified chronicity] Onset: 5 Episodic Other non-traumatic joint disorders (2 sources) Pain in left knee; Translations: [Acute pain of left knee] Onset: 5 Episodic Other non-traumatic joint disorders (1 source) Effusion of joint of left knee; Translations: [Effusion, left knee] 08-07-2025 Episodic Other nutritional; endocrine; and metabolic disorders (20 sources) Obesity; Translations: [Obesity, unspecified] Onset: 1 08-20-2011 Chronic Other nutritional; endocrine; and metabolic disorders (14 sources) Body mass index 30+ - obesity; Translations: [Obesity, unspecified] Onset: 2 06-26-2022 Chronic Other nutritional; endocrine; and metabolic disorders (2 sources) Obesity, unspecified; Translations: [Obesity, unspecified] Onset: 2 Chronic Other screening for suspected conditions (not mental disorders or infectious disease) (18 sources) Computed tomography result abnormal; Translations: [Abnormal findings on diagnostic imaging of other specified body structures] 01-19-2023 Chronic Residual codes; unclassified (20 sources) Swelling; Translations: [Edema, unspecified] Episodic Residual codes; unclassified (5 sources) History of past delivery; Translations: [Personal history of other genital system and obstetric disorders] Episodic Comment on above: 12/26/1975; 40 WEEKS; MALE; 7LBS 6OZ01/13/1983; 40 WEEKS; FEMALE; 7LBS 6OZ; Residual codes; unclassified (5 sources) History of clinical finding in subject; Translations: [Asymptomatic postmenopausal status (age-related) (natural)] Episodic Comment on above: 2002; Residual codes; unclassified (5 sources) Past history of procedure; Translations: [Other specified personal history presenting hazards to health] Episodic Comment on above: 11/07/2019 BENIGN; Residual codes; unclassified (1 source) Pain; Translations: [Pain, unspecified] Episodic Residual codes; unclassified (1 source) Postoperative state; Translations: [Other specified postprocedural states] Episodic Residual codes; unclassified (2 sources) Other specified postprocedural states; Translations: [Other specified postprocedural states] Onset: 5 Episodic Spondylosis; intervertebral disc disorders; other back problems (9 sources) Cervical spondylosis without myelopathy; Translations: [Spondylosis without myelopathy or radiculopathy, cervical region] Onset: 5 05-19-2025 Chronic Spondylosis; intervertebral disc disorders; other back problems (20 sources) Neck pain; Translations: [Back problem] Onset: 5 Episodic Thyroid disorders (20 sources) Hypothyroidism; Translations: [Unspecified acquired hypothyroidism] Onset: 1 Chronic Thyroid disorders (20 sources) Disorder of thyroid gland; Translations: [Disorder of thyroid, unspecified] Onset: 1 Episodic Unclassified (2 sources) I85.10 - Secondary esophageal varices without bleeding,R13.10 - Dysphagia, unspecified Unclassified (1 source) Finding of pelvis 04-10-2025 Unclassified (2 sources) Patient encounter status 04-10-2025 Unclassified (2 sources) Results Onset: 5 Urinary tract infections (1 source) Recurrent urinary tract infection; Translations: [Urinary tract infection, site not specified] 12-11-2023 Episodic Past or Other Problems Problem Classification Problem Date Documented Da te Episodic/Chronic Abdominal pain (20 sources) Epigastric pain; Translations: [Epigastric pain] Onset: 8 03-24-2018 Episodic Deficiency and other anemia (18 sources) Anemia; Translations: [Anemia, unspecified] Onset: 2 06-26-2022 Episodic Deficiency and other anemia (3 sources) Anemia, unspecified; Translations: [Anemia, unspecified] Onset: 2 Episodic Gastrointestinal hemorrhage (20 sources) Gastrointestinal hemorrhage; Translations: [Gastrointestinal hemorrhage, unspecified] Onset: 5 01-18-2023 Episodic Other aftercare (2 sources) custodial (current) use of insulin; Translations: [custodial (current) use of insulin] Onset: 1 Episodic Other and unspecified benign neoplasm (20 sources) Benign neoplasm of colon; Translations: [Benign neoplasm of colon, unspecified] Onset: 0 01-09-2010 Episodic Other circulatory disease (20 sources) Feeling of lump in throat; Translations: [Other specified symptoms and signs involving the circulatory and respiratory systems] Onset: 8 Episodic Other connective tissue disease (20 sources) Impingement syndrome of left shoulder region; Translations: [Impingement syndrome of left shoulder] Onset: 1 11-28-2020 Episodic Other connective tissue disease (20 sources) Pain in left foot; Translations: [Pain in left foot] Onset: 2 Episodic Other disorders of stomach and duodenum (1 source) Gastroparesis; Translations: [Gastroparesis] Onset: 5 Episodic Other female genital disorders (1 source) Unspecified condition associated with female genital organs and menstrual cycle; Translations: [Adnexal fullness] Onset: 5 Episodic Other gastrointestinal disorders (19 sources) Feces contents abnormal; Translations: [Other fecal abnormalities] Onset: 0 Resolved: 1 08-20-2011 Episodic Other gastrointestinal disorders (2 sources) Dysphagia, unspecified; Translations: [Dysphagia, unspecified] Onset: 5 Episodic Other non-traumatic joint disorders (20 sources) Chronic pain of left upper limb; Translations: [Pain in left shoulder] Onset: 7 01-07-2017 Episodic Other non-traumatic joint disorders (20 sources) Bilateral elbow joint pain; Translations: [Pain in right elbow] Onset: 7 01-07-2017 Episodic Other screening for suspected conditions (not mental disorders or infectious disease) (20 sources) Cancer cervix screening status; Translations: [Screening for malignant neoplasms of cervix] Onset: 7 Resolved: 6 Episodic Comment on above: 09/22/2018-richi PELLETIER; Results Test Name Value Interpretation Reference Range Facility MR/PAT.Toni 08-24-2025 MR/PAT.JOSE A [facility] Medical Records Department [address] [place] [address] PAT - Anesthesia 08/24/25 1337 MR#: [id number] Acct: [id number] Name: KRISTA CAMPBELL Rep #: [id number] : 1955 70 From: Devon Garcia MD PCP: Dr. 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 When Was Last Pacemaker Check QUESTION #4 FULL TEXT: You/Your Family Experience fever (hyperthermia) with Anesthesia Last Oral Intake Last Oral intake: Last Oral Intake NPO since Meds taken in AM with sips of water? Meds patient instructed to take am of surgery PONV PONV - water proofer: PONV - water proofer Female Yes 08/24/25 13:06 HX of Motion Sickness Yes 08/24/25 13:06 HX of N/V After Surgery No 08/24/25 13:06 Non-Smoker Yes 08/24/25 13:06 Duration of Surgery greater No 08/24/25 13:06 than 60 minutes Number of Risk Factors 3 08/24/25 13:06 PONV Score Moderate Risk 08/24/25 13:06 Height Weight Height Weight: Anesthesia: Height Weight Height 4 ft 11 in 04/24/25 09:33 Respiratory Assessment Respiratory Assessment - water proofer: Respiratory Tract Infection Hx - water proofer Hx Respiratory Tract Infection No 08/24/25 13:06 STOP Sleep Apnea STOP Sleep Apnea - water proofer: STOP Sleep Apnea - water proofer Hx Hypertension No: COREG FOR VARICES OF 08/24/25 13:06 ESPHOGUS Hx Sleep Apnea No 08/24/25 13:06 CPAP BIPAP Do you snore loudly (louder No 08/24/25 13:06 than talking or can be heard Do you often feel tired/ No 08/24/25 13:06 fatigued/ sleepy during daytime? Has anyone observed you stop No 08/24/25 13:06 breathing during sleep? STOP Results Negative 08/24/25 13:06 QUESTION #5 FULL TEXT : Do you snore loudly (louder than talking or can be heard through closed doors)? 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 Specify any problems Hx of Preganancy in last 3 No 08/24/25 13:06 Months Nurse Filling Out Transfusion MGRIFFITH 08/24/25 13:06 Questions: Date: 08/24/25 08/24/25 13:06 Time: 13:07 08/24/25 13:06 Patient unable to answer at this time (ie. 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 Hx Now No 08/24/25 13:06 Gestational Age (in weeks): EDC: Hx Hx Para Hx Section SAB No 08/24/25 13:06 Does the father of the baby or his family experience fever w Father of the baby Malignant Hypertension history comment [facility] Medical History (Updated 08/24/25 @ 13:14 by Celeste Giang) Wears hearing aid Wears dentures Fatty liver History of ulceration History of Holter monitoring Back pain Wears glasses Thyroid disease Gout Arthritis Anemia High cholesterol History of GI bleed History of diverticulitis Gastric reflux Former smoker History of edema History of echocardiogram Hypertension Diabetes Migraines Home Medications ???Medication ???Instructions ???Recorded ???Last Taken ???Type rizatriptan 10 mg tablet 10 mg PO PRN PRN Migraine Headache 12/28/13 Unknown History Lactobacillus acidophilus 10 mg PO DAILY Check with primary 01/18/23 02/19/25 History (Acidophilus capsule) doctor allopurinol 100 mg tablet 100 mg PO DAILY Check with primary 01/18/23 02/26/25 Hist (more content not included)... Normal [facility] CNOVon 08-09-2025 CNOV Office Visit (ORNA ) -------- KRISTA CAMPBELL ([id number]) 1955 F Date Time Provider Department 08/09/25 3:00 PM BHUPINDER CUENCA OREBONIE During your visit today, we recorded the following information about you: Bhupinder Cuenca PA-C 08/09/2025 4:03 PM Signed HISTORY OF PRESENT ILLNESS: Krista is a 70 year old female. She is here for evaluation of Left knee pain. Patient reports increased pain and swelling over the last 3 months. She was seen in [facility] on 07/30 and had knee aspiration which was negative for infection or crystals. Patient does have a history of gout. Unable to take NSAID or tylenol due to cirrhosis. PAIN EVALUATION 08/09/2025 1454 Pain Level: 4 Pain Location: Knee-Left Description: Stabbing/Not Incision Duration Amount of Time: 3 Duration Units: Months Frequency: Intermittent Intervention/Comfort measure: Medication;Reposition;Re laxation MEDICATIONS Current Outpatient Medications on File Prior to Visit Medication Sig dulaglutide (TRULICITY) 3 mg/0.5 mL pen injector Inject 3 mg subcutaneously one time a week. levothyroxine (SYNTHROID) 75 mcg tablet Take 1 tablet by mouth once daily. ascorbic acid, vitamin C, (VITAMIN C) 500 mg tablet Take 1 tablet by mouth two times a day. ferrous sulfate 325 mg (65 mg iron) tablet Take 1 tablet by mouth every other day. carvedilol (COREG) 6.25 mg tablet Take 1 tablet by mouth two times a day with meals. pantoprazole DR (PROTONIX) 40 mg tablet Take 1 tablet by mouth two times a day. ezetimibe (ZETIA) 10 mg tablet Take 1 tablet by mouth once daily. metFORMIN (GLUCOPHAGE) 1,000 mg tablet Take 1 tablet by mouth two times a day with meals. rifAXIMin (XIFAXAN) 550 mg tablet Take 550 mg by mouth two times a day. spironolactone (ALDACTONE) 25 mg tablet Take 25 mg by mouth once daily. Take half pill daily allopurinol (ZYLOPRIM) 100 mg tablet Take 1 tablet by mouth once daily. Magnesium 250 mg tab Take 1 tablet by mouth twice daily. lactulose 10 gram/15 mL solution Take 30 mL by mouth. gabapentin (NEURONTIN) 400 mg capsule Take 1 capsule by mouth twice daily. vitamin C-biotin (PQNV-VKPV-PRQFV, VIT C-BIOTIN,) 50 mg -1,250 mcg chew Take 2 tablets by mouth once daily. EMGALITY PEN 120 mg/mL pen Inject 120 mg subcutaneously once every month. fluorometholone (FML LIQUID FILM) 0.1 % ophthalmic suspension rizatriptan (MAXALT) 10 mg tablet MV-MN/FOLIC ACID/CALCIUM/VIT K (ONE-A-DAY WOMEN'S 50 PLUS ORAL) Take by mouth. L.ACID/L.CASEI/B.BIF/B.L ON/FOS (PROBIOTIC BLEND ORAL) Take by mouth. cycloSPORINE (RESTASIS) 0.05 % ophthalmic emulsion Use 1 Drop in both eyes twice daily. ERYTHROMYCIN BASE (ERYTHROMYCIN OPHTHALMIC) Use in eyes. VIT C/NARCISA AC/LUT/COPPER/ZNOX (PRESERVISION LUTEIN ORAL) Take 1 tablet by mouth twice daily. No current facility-administered medications on file prior to visit. ALLERGIES ALLERGIES Allergen Reactions Sbfxliq-Fxy-Fiq Red* Myalgia Knees shake, weak and joints ache Cipro [Ciprofloxaci* Hives Metronidazole Hives Penicillins Rash Age 19 -- rash all over, hives Sulfa (Sulfonamide * Rash PAST MEDICAL HISTORY PAST MEDICAL HISTORY Diagnosis Date Arthritis in Hands Cervical disc disease Diabetes (HCC) Gout Macular degeneration Other forms of migraine Personal history of colonic polyps Snoring does not use C-pap Thyroid disease PAST SURGICAL HISTORY PAST SURGICAL HISTORY Procedure Laterality Date ABDOMINAL SURGERY HX DELIVERY ONLY , low cervical COLONOSCOPY 07/11/2022 repeat in 5 years COLONOSCOPY FLX DX W/COLLJ SPEC WHEN PFRMD 01/09/2010 Colonoscopy COLONOSCOPY FLX DX W/COLLJ SPEC WHEN PFRMD 01/15/2011 COLONOSCOPY FLX DX W/COLLJ SPEC WHEN PFRMD 03/27/2016 Colonoscopy COLONOSCOPY FLX DX W/COLLJ SPEC WHEN PFRMD 06/08/2017 Colonoscopy DILATION AND CURETTAGE DXAND/THER NONOBSTETRIC Dilation AND curettage EGD W/O [facility] SPEC VARICIES INJ N/A 01/20/2023 [facility] EGD W/O [facility] SPEC VARICIES INJ N/A 04/08/2023 [facility] EGD W/O [facility] SPEC VARICIES INJ N/A 11/09/2024 [facility] ESOPHAGOGASTRODUODENOSCO PY TRANSORAL DIAGNOSTIC 01/2004 EGD ESOPHAGOGASTRODUODENOSCO PY TRANSORAL DIAGNOSTIC 03/29/2018 EGD FRACTURE SURGERY LIG/TRNSXJ FLP TUBE ABDL/VAG APPR UNI/BI PAST SURGICAL HISTORY OF Left 07/07/2022 Left foot surgery with plates and screws placed STEREOTACTIC CORE BIOPSY 07/13/2007 LEFT BREAST- benign TONSILLECTOMY HX TONSILLECTOMY PRIMARY/SECONDARY SOCIAL HISTORY Tobacco: Ex-smoker FAMILY HISTORY Does a similar condition to what you are experiencing run in your family? No REVIEW OF SYSTEMS: All other systems negative. PHYSICAL EXAM: PE: All other systems deferred. GENERAL: Appears healthy, well-nourished, no deformities. HABITUS: Obese Gait: Normal, the patient did not have trouble getting onto the exam table. Left: Alignment: Varus deformi (more content not included)... Normal [facility] XR KNEE 4V AP/PA BOTH+LAT/ME R LTon 08-09-2025 XR KNEE 4V AP/PA BOTH+LAT/ENRIQUE LT * * *Final Report* * * DATE OF EXAM: Aug 09 2025 2:51PM MDO 5202 - XR KNEE 4V AP/PA BOTH+LAT/ENRIQUE LT / PROCEDURE REASON: M13.80-Inflammatory arthritis * * * * Physician Interpretation * * * * EXAM(s): XR KNEE 4V AP/PA BOTH+LAT/ENRIQUE LT EXAM DATE/TIME: 08/09/2025 2:51 PM HISTORY: 70 years old Clinical information: Inflammatory arthritis Pt c/o medial pain of her left knee states the pain is a stabbing pain TECHNIQUE: Images: XR KNEE 4V AP/PA BOTH+LAT/ENRIQUE LT Comparison: 09/13/2014. RESULT: Findings: Bilateral findings: Marked narrowing of the medial compartments of each knee. Marked narrowing of the patellofemoral joints. Marked bony demineralization. Right :No fractures or dislocations are seen. Left :No fractures or dislocations are seen. There is chondrocalcinosis in the medial and lateral compartments of the knee. IMPRESSION: Findings as discussed under Results portion of report. 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: FLORENCE Transcribe Date/Time: Aug 10 2025 4:00P Dictated by : TRUMAN SORIA DO This examination was interpreted and the report reviewed and electronically signed by: TRUMAN SORIA DO on Aug 10 2025 4:00PM EST [id number] [facility] XR LEG FRONTL HIP-ANKL [facility] AXISon 08-09-2025 XR LEG FRONTL HIP-ANKL [facility] AXIS * * *Final Report* * * DATE OF EXAM: Aug 09 2025 2:51PM MUSHTAQ 5216 - XR LEG FRONTL HIP-ANKL [facility] AXIS / PROCEDURE REASON: M25.561-Right knee pain, unspecified chronicity * * * * Physician Interpretation * * * * EXAM(s): XR LEG FRONTL HIP-ANKL [facility] AXIS EXAM DATE/TIME: 08/09/2025 2:51 PM HISTORY: 70 years old Clinical information: Right knee pain, unspecified chronicity Pt c/o medial pain of her left knee states the pain is a stabbing pain TECHNIQUE: Images: XR LEG FRONTL HIP-ANKL MECH AXIS Comparison: None. EXAM: XR LEG FRONTAL SCANOGRAM LENGTHS, XR LEG FRONTL HIP-ANKL MECH AXIS RESULT: Findings: AP view of the full lengths of the bilateral lower extremities was obtained with cm ruler markings. Measurements will be obtained by the ordering service. Bone density appears decreased. No fractures or dislocations are seen. IMPRESSION: Findings as discussed in results portion of report 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: PSCB Transcribe Date/Time: Aug 10 2025 3:59P Dictated by : TRUMAN SORIA DO This examination was interpreted and the report reviewed and electronically signed by: TRUMAN SORIA DO on Aug 10 2025 4:00PM EST [id number] Normal [facility] Culture, Anaerobic Any Sourc criss 08-05-2025 CUAN none none Lt Knee No anaerobic bacteria isolated. Normal [facility] Comment on above: Performed By: #### L 100.0100, L501.6710, L101.9900, L500.2500 #### [facility] [address] [place], [address] CNOVon 08-02-2025 CNOV Office Visit (FAMWS ) -------- KRISTA CAMPBELL ([id number]) 1955 F Date Time Provider Department 08/02/25 10:20 AM SARA GOFFWS During your visit today, we recorded the following information about you: Pulse Blood pressure Weight 73/minute 106/62 68.8 kg Sara Goff APRN.VISUAL BASIC DEVELOPER 08/02/2025 5:33 PM Signed This is a 70 year old female who presents today with: ER follow up, inflammatory arthritis HISTORY OF PRESENT ILLNESS: Kirsta is a 70-year-old female presenting for follow-up of right knee pain. Right Knee Pain: - Acute onset of left knee pain, swelling, and erythema 07/30 - Evaluated at urgent care and [facility]; underwent knee aspiration with 35 cc of fluid removed. - Synovial fluid analysis showed no growth in culture, no crystals. CRP was elevated but ESR was not. - Denies known trauma or previous similar episodes. - Pain localized to the medial aspect of the knee, described as poking an ice pick." - Pain exacerbated by attempting full flexion/extension of the knee; unable to fully bend the knee. - Currently managing pain with elevation, ice and oxycodone (6 pills prescribed, 3 taken). - Previous orthopedic care for shoulder and elbow , Dr Hudson, no other orthopedic. Hasn't seen him since 2020 - Advised by Dr. Brennan to follow up with an orthopedic doctor as well. Gout: - History of gout, currently managed with allopurinol. PAST MEDICAL HISTORY: PAST MEDICAL HISTORY Diagnosis Date Arthritis in Hands Cervical disc disease Diabetes (HCC) Gout Macular degeneration Other forms of migraine Personal history of colonic polyps Snoring does not use C-pap Thyroid disease PAST SURGICAL HISTORY Procedure Laterality Date ABDOMINAL SURGERY HX DELIVERY ONLY , low cervical COLONOSCOPY 07/11/2022 repeat in 5 years COLONOSCOPY FLX DX W/COLLJ SPEC WHEN PFRMD 01/09/2010 Colonoscopy COLONOSCOPY FLX DX W/COLLJ SPEC WHEN PFRMD 01/15/2011 COLONOSCOPY FLX DX W/COLLJ SPEC WHEN PFRMD 03/27/2016 Colonoscopy COLONOSCOPY FLX DX W/COLLJ SPEC WHEN PFRMD 06/08/2017 Colonoscopy DILATION AND CURETTAGE DXAND/THER NONOBSTETRIC Dilation AND curettage EGD W/O [facility] SPEC VARICIES INJ N/A 01/20/2023 [facility] EGD W/O [facility] SPEC VARICIES INJ N/A 04/08/2023 [facility] EGD W/O [facility] SPEC VARICIES INJ N/A 11/09/2024 [facility] ESOPHAGOGASTRODUODENOSCO PY TRANSORAL DIAGNOSTIC 01/2004 EGD ESOPHAGOGASTRODUODENOSCO PY TRANSORAL DIAGNOSTIC 03/29/2018 EGD FRACTURE SURGERY LIG/TRNSXJ FLP TUBE ABDL/VAG APPR UNI/BI PAST SURGICAL HISTORY OF Left 07/07/2022 Left foot surgery with plates and screws placed STEREOTACTIC CORE BIOPSY 07/13/2007 LEFT BREAST- benign TONSILLECTOMY HX TONSILLECTOMY PRIMARY/SECONDARY ALLERGIES Jalyojv-Fxc-Nhj Reductase Inhibitors, Cipro [Ciprofloxacin], Metronidazole, Penicillins, and Sulfa (Sulfonamide Antibiotics) MEDICATIONS Current Outpatient Medications Medication Sig dulaglutide (TRULICITY) 3 mg/0.5 mL pen injector Inject 3 mg subcutaneously one time a week. levothyroxine (SYNTHROID) 75 mcg tablet Take 1 tablet by mouth once daily. ascorbic acid, vitamin C, (VITAMIN C) 500 mg tablet Take 1 tablet by mouth two times a day. ferrous sulfate 325 mg (65 mg iron) tablet Take 1 tablet by mouth every other day. carvedilol (COREG) 6.25 mg tablet Take 1 tablet by mouth two times a day with meals. pantoprazole DR (PROTONIX) 40 mg tablet Take 1 tablet by mouth two times a day. ezetimibe (ZETIA) 10 mg tablet Take 1 tablet by mouth once daily. metFORMIN (GLUCOPHAGE) 1,000 mg tablet Take 1 tablet by mouth two times a day with meals. rifAXIMin (XIFAXAN) 550 mg tablet Take 550 mg by mouth two times a day. spironolactone (ALDACTONE) 25 mg tablet Take 25 mg by mouth once daily. Take half pill daily allopurinol (ZYLOPRIM) 100 mg tablet Take 1 tablet by mouth once daily. Magnesium 250 mg tab Take 1 tablet by mouth twice daily. lactulose 10 gram/15 mL solution Take 30 mL by mouth. gabapentin (NEURONTIN) 400 mg capsule Take 1 capsule by mouth twice daily. vitamin C-biotin (TEHZ-XBYL-TOZXL, VIT C-BIOTIN,) 50 mg -1,250 mcg chew Take 2 tablets by mouth once daily. EMGALITY PEN 120 mg/mL pen Inject 120 mg subcutaneously once every month. fluorometholone (FML LIQUID FILM) 0.1 % ophthalmic suspension rizatriptan (MAXALT) 10 mg tablet MV-MN/FOLIC ACID/CALCIUM/VIT K (ONE-A-DAY WOMEN'S 50 PLUS ORAL) Take by mouth. L.ACID/L.CASEI/B.BIF/B.L ON/FOS (PROBIOTIC BLEND ORAL) Take by mouth. cycloSPORINE (RESTASIS) 0.05 % ophthalmic emulsion Use 1 Drop in both eyes twice daily. ERYTHROMYCIN BASE (ERYTHROMYCIN OPHTHALMIC) Use in eyes. VIT C/NARCISA AC/LUT/COPPER/ZNOX (PRESERVISION LUTEIN ORAL) Take 1 tablet by mouth twice daily. No current facility-administered medications for this visit. FAMILY HISTORY Problem Relation Age of Onset Diabetes Mot (more content not included)... Normal [facility] Cyclic citrullinated peptide IgG Qnon 08-02-2025 CCP ANTIBODY IGG QUALITATIVE Negative Normal Negative [facility] Comment on above: Order Comment: Speci men Type: BLOOD SPECIMENOrdering Facility: [facility] Address: [address] [place] [address] Performed By: #### 3 3935-8 ####[facility] [id number] [place] [address] [place] Nuclear Ab IA Ql (S)on 08-02 KILEY SCR QUAL Negative Normal Negative [facility] Comment on above: Order Comment: Speci jon Type: BLOOD SPECIMENOrdering Facility: [facility] Address: [address] [place] [address] Result Comment: The qualitative antinuclear antibody screen test performed using the following antigens: dsDNA, Chromatin, Ribosomal P, SS-A 60, SS-A 52, SS-B, Sm, SmRNP, QUALITY ASSURANCE PROJECT MANAGER A, QUALITY ASSURANCE PROJECT MANAGER 68, Scl-70, Suellen-1, and Centromere B. Methodology: Multiplex flow immunoassay. Performed By: #### 4 7383-5 ####[facility] [id number] [place] [address] [place] Rheumatoid fact SerPl-aCncon 08-02-2025 Rheumatoid factor Qn [IU]/mL Normal <16 [facility] Comment on above: Order Comment: Judy webb Type: BLOOD SPECIMENOrdering Facility: [facility] Address: [address] [place] [address] Performed By: #### 1 1572-5 ####[facility] [id number] [address] OF [facility] cCP IgG SerPl-aCncon 025 Cyclic citrullinated peptide IgG Qn <15 Normal <20 [facility] Comment on above: Order Comment: Speci men Type: BLOOD SPECIMENOrdering Facility: [facility] Address: [address] [place] [address] Performed By: #### 3 3935-8 ####[facility] LABCL[facility] [id number] [address] OF [place] Body Fluid Culton 07-31-2025 BFC none none Lt Knee Culture exhibits no growth. Normal [facility] Comment on above: Performed By: #### L 100.0100, L501.6710, L101.9900, L500.2500 #### [facility] [address] [place], [address] Crystals, Body Fluidon 07-31 PATH REV Reviewed Normal [facility] Comment on above: Order Comment: Comme nts: Rt AnkleComments: Lt Knee Result Comment: RARE CRYSTALS PRESENT CONSISTENT WITH URATE AND NON-URATE CRYSTALS OBSERVED. BENIGN CYTOLOGY WITH ACUTE INFLAMMATION. Krista Fernando MD 07/31/2025 AMENDED REPORT 07/31/25 1319 PATH REV previously reported as: Will follow Performed By: #### M 100.7900 #### [facility] [address] [place], [place], [address] Absolute lymphocyte countOrd ered By: Sergey Brennan on 07-30-2025 Lymphocytes Auto (Unsp spec) [#/Vol] 0.81 10*3/uL Low 0.83-4.51 [facility] Absolute neutrophil countOrd ered By: Sergey Brennan on 07-30-2025 Neutrophils (Bld) [#/Vol] 2.7 10*3/uL 2.0-7.7 [facility] Anaerobic cultureOrdered By: Sergey Brennan on 07-30-2025 Bacteria identified Anaer cx Nom (Unsp spec) No anaerobic bacteria isolated. [facility] Anion gap in Serum or Plasma Ordered By: Sergey Brennan on 07-30-2025 Anion gap [Moles/Vol] 13 mmol/L 03-02 [facility] Automated lymphocyte count a s percentage of total leukocytesOrdered By: Sergey Renoo on 07-30-2025 Lymphocytes/100 WBC Auto (Unsp spec) 19.8 % [facility] Automated synovial fluid lianna kocytes count (number/volume)Ordered By: Sergey Renoo on 07-30-2025 WBC Auto (Syn fld) [#/Vol] 16.3220 10^3/uL High 0.000-0.002 [facility] Automated synovial fluid mon onuclear cell count (number/volume)Ordered By: Sergey Brennan on 07-30-2025 Mononuclear cells Auto (Syn fld) [#/Vol] 3.196 10^3/ul [facility] Comment on above: Previous reported re sult: 1.598 10^3/ulEdited by: VERA on 07/30/25:1516 AMENDED REPORT 07/30/251515 SYBF MN WBC# previously reported as: 1.598 10^3/ul Automated synovial fluid phillip ymorphonuclear cell count (number/volume)Ordered By: Sergey Brennan on 07-30-2025 Polymorphonuclear cells Auto (Syn fld) [#/Vol] 13.126 10^3/uL [facility] Comment on above: Previous reported re sult: 6.563 10^3/uLEdited by: VERA on 07/30/25:1515 AMENDED REPORT 07/30/251514 SYBF PMN WBC# previously reported as: 6.563 10^3/uL Automated synovial fluid phillip ymorphonuclear cells as percentage of leukocytesOrdered By: Sergey Brennan on 07-30-2025 Polymorphonuclear cells/100 WBC Auto (Syn fld) 80.4 % [facility] BUN/creatinine ratioOrdered By: Sergey Brennan on 07-30-2025 Urea nitrogen/Creatinine [Mass ratio] 18.5 mg/mg 08-07 [facility] Basic Metabolic Profile (BMP )on 07-30-2025 BUN/CRE 18.5 RATIO Normal 08-07 [facility] Comment on above: Performed By: #### L 100.0100, L501.6710, L101.9900, L500.2500 #### [facility] [address] [place], [address] Calcium [Mass/Vol] 9.8 mg/dL Normal 7.6-11.0 [facility] Comment on above: Performed By: #### L 100.0100, L501.6710, L101.9900, L500.2500 #### [facility] [address] [place], [address] Chloride [Moles/Vol] 100 mmol/L Normal 98-108 [facility] Comment on above: Performed By: #### L 100.0100, L501.6710, L101.9900, L500.2500 #### [facility] [address] [place], [address] CO2 [Moles/Vol] 24.9 mmol/L Normal 21.0-32.0 [facility] Comment on above: Performed By: #### L 100.0100, L501.6710, L101.9900, L500.2500 #### [facility] [address] [place], [address] Creatinine [Mass/Vol] 0.60 mg/dL Low 0.70-1.20 [facility] Comment on above: Performed By: #### L 100.0100, L501.6710, L101.9900, L500.2500 #### [facility] [address] [place], [address] ECRCL 62.87 ml/min Normal 50-250 [facility] Comment on above: Performed By: #### L 100.0100, L501.6710, L101.9900, L500.2500 #### [facility] [address] [place], [address] GAP 13 Normal 5-15 [facility] Comment on above: Performed By: #### L 100.0100, L501.6710, L101.9900, L500.2500 #### [facility] [address] [place], [address] GFR/1.73 sq M.predicted among non-blacks MDRD (S/P/Bld) [Vol rate/Area] 97 mL/min/{1.73_m2} Normal >60 [facility] Comment on above: Result Comment: mL/m in/1.73m2 CKD-EPI Creatinine Equation (2020) Performed By: #### L 100.0100, L501.6710, L101.9900, L500.2500 #### [facility] [address] [place], [address] Glucose [Mass/Vol] 136 mg/dL High 70-99 [facility] Comment on above: Performed By: #### L 100.0100, L501.6710, L101.9900, L500.2500 #### [facility] [address] [place], [address] Potassium [Moles/Vol] 4.4 mmol/L Normal 3.3-5.1 [facility] Comment on above: Performed By: #### L 100.0100, L501.6710, L101.9900, L500.2500 #### [facility] [address] [place], [address] Sodium [Moles/Vol] 138 mmol/L Normal 133-145 [facility] Comment on above: Performed By: #### L 100.0100, L501.6710, L101.9900, L500.2500 #### [facility] [address] [place], [address] Urea nitrogen [Mass/Vol] 11 mg/dL Normal 4-19 [facility] Comment on above: Performed By: #### L 100.0100, L501.6710, L101.9900, L500.2500 #### [facility] [address] [place], [address] Basophil percentageOrdered B y: Sergey Brennan on 07-30-2025 Basophils/100 WBC (Bld) 0.7 % 0-1 [facility] Body fluid crystal identific ation by light microscopyOrdered By: Sergey Brennan on 07-30-2025 Crystals LM Nom (Body fld) NO CRYSTALS SEEN [facility] Comment on above: CRYSTAL RESULT IS PRELIMINARY. SEE PATH REVIEW FOR FINAL REPORT. Body fluid cultureOrdered By : Sergey Brennan on 07-30-2025 Microbial culture, body fluid Culture exhibits no growth. [facility] CBC W/Diff, Automatedon 07-19 Absolute Lymph 0.81 X10 3/uL Low 0.83-4.51 [facility] Comment on above: Performed By: #### L 100.0100, L501.6710, L101.9900, L500.2500 #### [facility] [address] [place], [address] Absolute Neut 2.7 X10 3/uL Normal 2.0-7.7 [facility] Comment on above: Performed By: #### L 100.0100, L501.6710, L101.9900, L500.2500 #### [facility] [address] [place], [address] Basophils/100 WBC (Bld) 0.7 % Normal 0-1 [facility] Comment on above: Performed By: #### L 100.0100, L501.6710, L101.9900, L500.2500 #### [facility] [address] [place], [address] Eosinophils/100 WBC (Bld) 3.9 % Normal 0-5 [facility] Comment on above: Performed By: #### L 100.0100, L501.6710, L101.9900, L500.2500 #### [facility] [address] [place], [address] Erythrocyte distribution width (RBC) [Ratio] 14.6 % Normal 11.6-14.6 [facility] Comment on above: Performed By: #### L 100.0100, L501.6710, L101.9900, L500.2500 #### [facility] [address] [place], [address] Hematocrit (Bld) [Volume fraction] 34.9 % Low 37-47 [facility] Comment on above: Performed By: #### L 100.0100, L501.6710, L101.9900, L500.2500 #### [facility] [address] [place], [address] Hemoglobin (Bld) [Mass/Vol] 10.6 g/dL Low 12.0-15.0 [facility] Comment on above: Performed By: #### L 100.0100, L501.6710, L101.9900, L500.2500 #### [facility] [address] [place], [address] IG% 0.500 Normal 0.0-0.9 [facility] Comment on above: Result Comment: IG% - Immature Granulocytes (promyelocytes, myelocytes and metamyelocytes) > 1% indicates that a LEFT SHIFT is Present. Performed By: #### L 100.0100, L501.6710, L101.9900, L500.2500 #### [facility] [address] [place], [address] Lymphocytes/100 WBC (Bld) 19.8 % Normal 19-41 [facility] Comment on above: Performed By: #### L 100.0100, L501.6710, L101.9900, L500.2500 #### [facility] [address] [place], [address] MCH (RBC) [Entitic mass] 26.8 pg Low 27.0-32.0 [facility] Comment on above: Performed By: #### L 100.0100, L501.6710, L101.9900, L500.2500 #### [facility] [address] [place], [address] MCHC (RBC) [Mass/Vol] 30.4 g/dL Low 32-36 [facility] Comment on above: Performed By: #### L 100.0100, L501.6710, L101.9900, L500.2500 #### [facility] [address] [place], [address] MCV (RBC) [Entitic vol] 88.4 fL Normal 81-99 [facility] Comment on above: Performed By: #### L 100.0100, L501.6710, L101.9900, L500.2500 #### [facility] [address] [place], [address] Monocytes/100 WBC (Bld) 8.6 % Normal 0-10 [facility] Comment on above: Performed By: #### L 100.0100, L501.6710, L101.9900, L500.2500 #### [facility] [address] [place], [address] Neutrophils/100 WBC (Bld) 66.5 % Normal 47-70 [facility] Comment on above: Performed By: #### L 100.0100, L501.6710, L101.9900, L500.2500 #### [facility] [address] [place], [address] Nucleated RBC (Bld) [#/Vol] 0 10*3/uL Normal 0-5 [facility] Comment on above: Performed By: #### L 100.0100, L501.6710, L101.9900, L500.2500 #### [facility] [address] [place], [address] Platelet mean volume (Bld) [Entitic vol] 11.6 fL Normal 6.2-12.0 [facility] Comment on above: Performed By: #### L 100.0100, L501.6710, L101.9900, L500.2500 #### [facility] [address] [place], [address] Platelets (Bld) [#/Vol] 73 10*3/uL Low 150-450 [facility] Comment on above: Performed By: #### L 100.0100, L501.6710, L101.9900, L500.2500 #### [facility] [address] [place], [address] RBC (Bld) [#/Vol] 3.95 10*6/uL Low 4.2-5.4 [facility] Comment on above: Performed By: #### L 100.0100, L501.6710, L101.9900, L500.2500 #### [facility] [address] [place], [address] RDW SD 47.1 fl High 35.1-43.9 [facility] Comment on above: Performed By: #### L 100.0100, L501.6710, L101.9900, L500.2500 #### [facility] [address] [place], [address] WBC (Bld) [#/Vol] 4.1 10*3/uL Low 4.4-11.0 [facility] Comment on above: Performed By: #### L 100.0100, L501.6710, L101.9900, L500.2500 #### [facility] [address] [place], [address] CNOVon 07-30-2025 CNOV Office Visit ([facility]) -------- KRISTA CAMPBELL ([id number]) 1955 F Date Time Provider Department 07/30/25 12:15 PM JOB ORELLANA During your visit today, we recorded the following information about you: Temperature Pulse Respiration Blood pressure 97.8 degrees 84/minute 16/minute 128/74 Weight 68.2 kg Job Orellana APRN.VISUAL BASIC DEVELOPER 07/30/2025 12:52 PM Signed [facility] Subjective Krista Campbell is a 70 year old female. Patient presents with: Knee Pain: Left x 1 week HPI The patient is a 70-year-old female presenting with acute left knee pain. Left Knee Pain: - Onset: Approximately one week ago. - No known trauma or injury. - Describes pain as "sharp," like "somebody is poking an ice pick" on the medial aspect of the knee. - Initially started on a Thursday; significantly worsened by Thursday. - Has used a knee brace, alternating heat and ice, and topical creams including 4% lidocaine and Voltaren with no relief. - Reports significant swelling and warmth in the knee. - Unable to bend the knee, stating physically cannot bend it." Review of Systems Musculoskeletal: (+) left knee pain, (+) left knee swelling, (+) left knee warmth, (+) decreased range of motion of left knee Objective BP 128/74 Pulse 84 Temp 36.6 ?C (97.8 ?F) (Tympanic) Resp 16 Wt 68.2 kg (150 lb 5.7 oz) LMP 01/31/2005 SpO2 99% BMI 30.11 kg/m? Physical Exam General: No acute distress. MSK/Ext: Left knee with significant swelling and warmth, unable to bend left knee; right knee cool to touch. { 1. Acute pain of left knee (M25.562) - Acute worsening of chronic left knee pain since Thursday, with significant increase in severity by Thursday; currently unable to bend the knee, with marked swelling and warmth on exam. - Differential includes septic arthritis; unable to rule out infection in the joint based on current presentation. - Advised immediate evaluation in the emergency department for further diagnostic workup, including imaging and laboratory studies to assess for possible septic joint. - Explained that inability to bend the joint, warmth, and swelling are concerning for a serious underlying issue; patient advised not to delay evaluation. - Patient expressed understanding and agreement with plan. and Recording using [employer] software for draft documentation of the visit was discussed with the patient/authorized customer relations representative; all questions welcomed and answered. Patient/authorized customer relations representative agreed to proceed History and Record Review External record(s) reviewed: no prior records. Disposition The patient was discharged. Procedures Allergies As of Date: 07/30/2025 Noted Allergy Reaction [id number] REDUCTASE INHIBIT*03/12/2023 17 - Myalgia Comments: Knees shake, weak and joints ache CIPRO (CIPROFLOXACIN) 08/28/2009 4 - Hives METRONIDAZOLE 08/28/2009 4 - Hives PENICILLINS 07/16/2005 2 - Rash Comments: Age 19 -- rash all over, hives SULFA (SULFONAMIDE ANTIBIOTICS) 07/16/2005 2 - Rash Date Reviewed: 07/30/2025 Reviewed by: Vivien Sharma MA - Fully Assessed Reason for Visit: Knee Pain [132] Cmt: Left x 1 week Primary Visit Diagnosis:Acute pain of left knee [M25.562] Prescriptions as of 07/30/2025 - dulaglutide (TRULICITY) 3 mg/0.5 mL pen injector Inject 3 mg subcutaneously one time a week. - levothyroxine (SYNTHROID) 75 mcg tablet Take 1 tablet by mouth once daily. - ascorbic acid, vitamin C, (VITAMIN C) 500 mg tablet Take 1 tablet by mouth two times a day. - ferrous sulfate 325 mg (65 mg iron) tablet Take 1 tablet by mouth every other day. - carvedilol (COREG) 6.25 mg tablet Take 1 tablet by mouth two times a day with meals. - pantoprazole DR (PROTONIX) 40 mg tablet Take 1 tablet by mouth two times a day. - ezetimibe (ZETIA) 10 mg tablet Take 1 tablet by mouth once daily. - metFORMIN (GLUCOPHAGE) 1,000 mg tablet Take 1 tablet by mouth two times a day with meals. - rifAXIMin (XIFAXAN) 550 mg tablet Take 550 mg by mouth two times a day. - spironolactone (ALDACTONE) 25 mg tablet Take 25 mg by mouth once daily. Take half pill daily - allopurinol (ZYLOPRIM) 100 mg tablet Take 1 tablet by mouth once daily. - Magnesium 250 mg tab Take 1 tablet by mouth twice daily. - lactulose 10 gram/15 mL solution Take 30 mL by mouth. - gabapentin (NEURONTIN) 400 mg capsule Take 1 capsule by mouth twice daily. - vitamin C-biotin (MYMV-LIFK-PTMJF, VIT C-BIOTIN,) 50 mg -1,250 mcg chew Take 2 tablets by mouth once daily. - EMGALITY PEN 120 mg/mL pen Inject 120 mg subcutaneously once every month. - fluorometholone (FML LIQUID FILM) 0.1 % ophthalmic suspension - rizatriptan (MAXALT) 10 mg tablet - MV-MN/FOLIC ACID/CALCIUM/VIT K (ONE-A-DAY WOMEN'S 50 PLUS ORAL) Take by mouth. - L.ACID/L.CASEI/B.BIF/B.L ON/FOS (PROBIOTIC BLEND ORAL) Take by mouth. - (more content not included)... Normal [facility] CRPon 07-30-2025 C-REACTIVE PROT 84.40 mg/L High 0.0-3.0 [facility] Comment on above: Performed By: #### L 100.0100, L501.6710, L101.9900, L500.2500 #### [facility] [address] [place], [address] Carbon dioxide, total [Moles /volume] in Central venous bloodOrdered By: Sergey Brennan on 07-30-2025 CO2 [Moles/Vol] 24.9 mmol/L 21.0-32.0 [facility] Chloride assayOrdered By: Ramirez Brennan on 07-30-2025 Chloride [Moles/Vol] 100 mmol/L 98-108 [facility] Determination of appearance of synovial fluid (nominal result)Ordered By: Sergey Brennan on 07-30-2025 Appearance (Syn fld) Cloudy CLEAR [facility] Emergency Department Summary on 07-30-2025 Emergency Department Summary [facility] Medical Records Department [address] [place] [address] Emergency Department Summary 07/30/25 MR#: [id number] Acct: [id number] Name: KRISTA CAMPBELL Rep #: [id number] : 1955 70 From: Sergey Brennan MD PCP: Dr. Taty Julian MD Status:REG ER Location: ED HPI History of Present Illness Chief Complaint: Lower Extremity Injury Detail of Chief Complaint: Patient presents with left knee pain and swelling. Informant: patient Onset/Context/Timing Onset: Weeks (This episode started greater than a week ago. Swelling several days ago) Context: Sudden Onset Timing: Continuous and Waxes and wanes Quality: Patient and swelling Location: Left knee Current Severity: Mild Maximum Severity: Severe Worsened by: Movement and weightbearing Relieved by: Nothing Associated Symptoms Associated Symptoms: No fever or chills. History of gout on allopurinol Narrative Narrative: Patient is a 70-year-old woman. She has history of esophageal variceals, thrombocytopenia, cirrhosis, GI bleed who presents with atraumatic left knee pain. She does have history of gout. She is present on allopurinol. She denies fever, chills night sweats. She complains of pain with any movement of the left knee. The pain started greater than a week ago. Swelling has been since July 26. She has no prior history of knee problems. She denies paresthesia, anesthesia or motor weakness. Prior similar symptoms: No Recent Illness/Hospitalization: No PFSH PFSH Medical History Back pain Wears glasses Thyroid disease Gout Arthritis Anemia High cholesterol History of GI bleed History of diverticulitis Gastric reflux Former smoker History of edema History of echocardiogram History of stress test Hypertension Diabetes Migraines Home Medications ???Medication ???Instructions ???Recorded ???Last Taken ???Type rizatriptan 10 mg tablet 10 mg PO PRN PRN Migraine Headache 12/28/13 Unknown History Lactobacillus acidophilus 10 mg PO DAILY Check with primary 01/18/23 02/19/25 History (Acidophilus capsule) doctor allopurinol 100 mg tablet 100 mg PO DAILY Check with primary 01/18/23 02/26/25 History doctor cyclosporine 0.05 % eye drops in a 1 drp ophthalmic (eye) BID healt h 01/18/23 02/26/25 History dropperette (Restasis) maintenance erythromycin 5 mg/gram (0.5 %) eye 1 applic ophthalmic (eye) QHS 02/26/25 History ointment health maintenance ezetimibe 10 mg tablet 10 mg PO DAILY Check with primary 01/18/23 02/26/25 History doctor fluorometholone 0.1 % eye 1 drp ophthalmic (eye) BID health 01/18/23 02/26/25 History drops,suspension maintenance gabapentin 400 mg tablet 800 mg PO QHS health maintenance 0 01/18/23 02/26/25 History galcanezumab-gnlm 120 mg/mL 120 mg subcut QMONTH Check with 02/24/25 History subcutaneous pen injector primary doctor (Emgality Pen) metformin 1,000 mg tablet 1,000 mg PO BID diabetic 01/18/23 11/08/24 History multivitamin with minerals 2 tab PO DAILY Check with primary 01/18/23 02/19/25 History (Hair,Skin and Nails tablet) doctor yrptubzlmjkx-Pn-euxi-min erals 18 2 tab PO DAILY health maintenance 01/18/23 02/19/25 History mg-0.4 mg tablet vit C 250 mg-vit E 90 mg-zinc 40 1 tab PO BID Check with primary Unknown History mg-copper 1 rn-lvbggk-cdyzmf doctor capsule (PreserVision AREDS-2) magnesium 200 mg tablet 200 mg PO DAILY Check with primary 07/04/24 02/19/25 History doctor ascorbic acid (vitamin C) 500 mg 500 mg PO BID 1 month #60 tabs 02/19/25 Rx chewable tablet elderberry fruit 350 mg capsule 700 mg PO QDAY 12/29/24 02/19/25 H istory ferrous sulfate 325 mg (65 mg 325 mg PO QDAY 1 month #30 tabs 02/19/25 Rx iron) tablet levothyroxine 75 mcg tablet 75 mcg PO QDAY 1 month #30 tabs 02/27/25 Rx pantoprazole 40 mg tablet,delayed 40 mg PO QDAY 12/29/24 02/27/25 H istory release vit C 62.5 mg-vit D3 15 mcg-zinc 2 tab PO QDAY 12/29/24 02/19/25 Hi story 2.75 mg-herbal no.358 chewable tablet (Immune Power) lactulose 10 gram/15 mL oral 15 ml PO BID 1 month #3,785 mL Unknown Rx solution spironolactone 25 mg tablet 25 mg PO DAILY 1 month #30 tabs Unknown Rx dulaglutide 3 mg/0.5 mL 3 mg subcut TH Check with primary 04/24/25 Unknown History subcutaneous pen injector doctor (Trulicity) rifaximin 550 mg tablet (Xifaxan) 550 mg PO BID 30 days #60 tabs Unknown Rx carvedilol 6.25 mg tablet 6.25 mg PO BID 1 month #60 tabs Unknown Rx oxycodone 5 mg capsule 5 mg PO Q8H PRN pain 2 days #6 cap s 07/30/25 Unknown Rx Allergy/AdvReac Type Severity Reaction Status Date / Time cip (more content not included)... Normal [facility] Eosinophil percentageOrdered By: Sergey Brennan on 07-30-2025 Eosinophils/100 WBC (Bld) 3.9 % 0-5 [facility] Erythrocyte Sed Rateon 07-30 SED RATE 29 mm/hr Normal 0-30 [facility] Comment on above: Performed By: #### L 100.0100, L501.6710, L101.9900, L500.2500 #### [facility] [address] [place] [address]. [place], [address] Erythrocyte distribution wid th ratioOrdered By: Sergey Brennan on 07-30-2025 Erythrocyte distribution width (RBC) [Ratio] 14.6 % 11.6-14.6 [facility] Erythrocyte distribution wid th standard deviationOrdered By: Sergey Brennan on 07-30-2025 Erythrocyte distribution width (RBC) [Ratio] 47.1 fl High 35.1-43.9 [facility] Erythrocyte sedimentation ra teOrdered By: Sergey Brennna on 07-30-2025 ESR (Bld) [Velocity] 29 mm/h 0-30 [facility] Glomerular filtration rate ( GFR) estimation/1.73 sq m using serum, plasma, or whole bOrdered By: Sergey Brennan on 07-30-2025 GFR/1.73 sq M.predicted among non-blacks MDRD (S/P/Bld) [Vol rate/Area] 97 mL/min/{1.73_m2} >60 [facility] Comment on above: mL/min/1.73m2 CKD-EP I Creatinine Equation (2020) Gram Stainon 07-30-2025 GS none none Lt Knee Centrifuged Specimen? Culture performed on centrifuged specimen Gram Stain No organisms seen 1+ White Blood Cells Normal [facility] Comment on above: Performed By: #### L 100.0100, L501.6710, L101.9900, L500.2500 #### [facility] [address] [place], [address] Gram stainOrdered By: Sergey rudd on 07-30-2025 Microscopic observation Gram stain Nom (Unsp spec) [facility] Hematocrit Auto (Bld) [Volum e fraction]Ordered By: Sergey Brennan on 07-30-2025 Hematocrit (Bld) [Volume fraction] 34.9 % Low 37-47 [facility] Hemoglobin measurementOrdere d By: Sergey Brennan on 07-30-2025 Hemoglobin (Bld) [Mass/Vol] 10.6 g/dL Low 12.0-15.0 [facility] Immature granulocytes/100 WB C Auto (Bld)Ordered By: Sergey Brennan on 07-30-2025 Immature granulocytes/100 WBC (Bld) 0.500 % 0.0-0.9 [facility] Comment on above: IG% - Immature Granu locytes (promyelocytes, myelocytes and metamyelocytes) > 1% indicates that a LEFT SHIFT is Present. Knee 4 or More Viewson 07-30 Knee 4 or More Views [facility] Imaging Services [address] [place] [address] Knee 4 or More Views MR#: [id number] Acct: [id number] Name: KRISTA CAMPBELL Rep #: [id number] : 1955 F 70 From: Wilmar Duran MD PCP: Dr. Taty Julian MD Status: PRE ER Study: Knee 4 or More Views Date of Exam: 07/30/25 Exam# [id number] Ordering Dr: Sergey Brennan MD PROCEDURE: KNEE 4 OR MORE VIEWS 07/30/2025 REASON FOR EXAM: INJURY/PAIN TECHNIQUE: Procedure Code: RADKN Modality: DX Procedure: KNEE 4 OR MORE VIEWS Laterality: Obliteration of the suprapatellar fossa consistent with knee effusion. COMPARISON: None. FINDINGS: Bones: No acute bony abnormalities. Joints: Unremarkable. Effusion: Unremarkable. Soft tissues: No soft tissue abnormalities. RAD/Knee 4 or More Views IMPRESSION: No acute osseous abnormalities. Small knee effusion. Reading [facility] CC: Dr. Taty Julian MD; Dr. Sergey Brennan MD 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: Signed Normal [facility] MCV (mean corpuscular volume ) determinationOrdered By: Sergey Brennan on 07-30-2025 MCV (RBC) [Entitic vol] 88.4 fL 81-99 [facility] Mean corpuscular hemoglobin (MCH) determinationOrdered By: Sergey Brennan on 07-30-2025 MCH (RBC) [Entitic mass] 26.8 pg Low 27.0-32.0 [facility] Mean corpuscular hemoglobin concentration (MCHC) determinationOrdered By: Sergey Brennan on 07-30-2025 MCHC (RBC) [Mass/Vol] 30.4 g/dL Low 32-36 [facility] Mean platelet volume determi nationOrdered By: Sergey Brennan on 07-30-2025 Platelet mean volume (Bld) [Entitic vol] 11.6 fL 6.2-12.0 [facility] Monocyte percentageOrdered B y: Sergey Brennan on 07-30-2025 Monocytes/100 WBC (Bld) 8.6 % 0-10 [facility] Neutrophil percentageOrdered By: Sergey Brennan on 07-30-2025 Neutrophils/100 WBC (Bld) 66.5 % 47-70 [facility] Nucleated red blood cell per centageOrdered By: Sergey Brennan on 07-30-2025 Nucleated RBC/100 WBC (Bld) [Ratio] 0 % 0-5 [facility] Pathologist review of result s (narrative result)Ordered By: Sergey Brennan on 07-30-2025 Pathologist review Fernando (Unsp spec) [Interp] May follow [facility] Platelet countOrdered By: Ramirez Brennan on 07-30-2025 Platelets (Bld) [#/Vol] 73 10*3/uL Low 150-450 [facility] Potassium measurement (mass/ volume)Ordered By: Sergey Brennan on 07-30-2025 Potassium (Unsp spec) [Mass/Vol] 4.4 mmol/L 3.3-5.1 [facility] RBC Auto (Bld) [#/Vol]Ordere d By: Sergey Brennan on 07-30-2025 RBC (Bld) [#/Vol] 3.95 10*6/uL Low 4.2-5.4 [facility] Review by pathologistOrdered By: Sergey Brennan on 07-30-2025 Pathologist review Fernando (Unsp spec) [Interp] Reviewed [facility] Comment on above: Previous reported re sult: Will follow Edited by: SIDNEY on 07/31/25:1319RARE CRYSTALS PRESENT CONSISTENT WITH URATE AND NON-URATE CRYSTALS OBSERVED.BENIGN CYTOLOGY WITH ACUTE INFLAMMATION.Krista Fernando MD 07/31/2025 AMENDED REPORT 07/31/25 1319 PATH REV previously reported as: Will follow Serum creatinine measurement (mass/volume)Ordered By: Sergey Brennan on 07-30-2025 Creatinine [Mass/Vol] 0.60 mg/dL Low 0.70-1.20 [facility] Serum glucose measurement (m ass/volume)Ordered By: Sergey Brennan on 07-30-2025 Glucose [Mass/Vol] 136 mg/dL High 70-99 [facility] Serum or plasma C reactive p rotein measurement (mass/volume)Ordered By: Sergey Brennan on 07-30-2025 CRP [Mass/Vol] 84.40 mg/L High 0.0-3.0 [facility] Serum or plasma calcium isabel urement (mass/volume)Ordered By: Sergey Brennan on 07-30-2025 Calcium [Mass/Vol] 9.8 mg/dL 7.6-11.0 [facility] Serum or plasma urea nitroge n measurement (mass/volume)Ordered By: Sergey Brennan on 07-30-2025 Urea nitrogen [Mass/Vol] 11 mg/dL 4-19 [facility] Sodium levelOrdered By: Sergey Brennan on 07-30-2025 Sodium [Moles/Vol] 138 mmol/L 133-145 [facility] Specimen source identificati on of body fluidOrdered By: Sergey Brennan on 07-30-2025 Specimen source Nom (Body fld) SYNOVIAL [facility] Specimen source Nom (Body fld) LEFT KNEE [facility] Synovial Fluid RBC, WBC AND Diffon 07-30-2025 Monocytes (Bld) [#/Vol] 15 10*3/uL Normal [facility] Comment on above: Order Comment: Comme nts: Rt AnkleComments: Lt Knee Performed By: #### M 100.7900 #### [facility] [address] [place], [place], [id number] NEUTROPHIL 85 High 0-25 [facility] Comment on above: Order Comment: Comme nts: Rt AnkleComments: Lt Knee Performed By: #### M 100.7900 #### [facility] [address] [place], [place], [id number] Synovial fluid color determi nation (nominal result)Ordered By: Sergey Brennan on 07-30-2025 Color (Syn fld) Yellow Pale Yellow [facility] Synovial fluid erythrocytes count (number/volume)Ordered By: Sergey Brennan on 07-30-2025 RBC (Syn fld) [#/Vol] 0.002 10^6/uL High 0-0 [facility] Synovial fluid monocyte perc entageOrdered By: Sergey Brennan on 07-30-2025 Monocytes/100 WBC (Syn fld) 15 % [facility] Synovial fluid mononuclear c ells/100 leukocytesOrdered By: Sergey Brennan on 07-30-2025 Mononuclear cells/100 WBC (Syn fld) 19.6 % [facility] Synovial fluid neutrophil pe rcentageOrdered By: Sergey Brennan on 07-30-2025 Neutrophils/100 WBC (Syn fld) 85 % High 0-25 [facility] Synovial fluid total cell co untOrdered By: Sergey Brennan on 07-30-2025 Cells Counted Total (Syn fld) [#] 16.4440 10^3/uL High 0.000-0.000 [facility] Comment on above: This is the Total Nu mber of Nucleated Cell Types in the Body Fluid. White blood cell (WBC) count Ordered By: Sergey Brennan on 07-30-2025 WBC (Bld) [#/Vol] 4.1 10*3/uL Low 4.4-11.0 [facility] EMGon 06-28-2025 Collin Carlson MD 06/28/2025 7:54 AM EMG Date/Time: 06/28/2025 7:53 AM Performed by: Collin Carlson MD Authorized by: Collin Carlson MD Verbal consent: obtained Consent given by: patient Time out: Immediately prior to procedure a "time out" was called to verify the correct patient, procedure, equipment, product support specialist and site/side marked as required. Patient tolerance: Patient tolerated the procedure well with no immediate complications NATUS EMG [facility] ELSA SCREENING W TOMOon 06-20 ELSA SCREENING W ERYN * * *Final Report* * * DATE OF EXAM: Jun 20 2025 1:28PM [facility] 0582 - ELSA SCREENING W ERYN / PROCEDURE REASON: multiple diagnoses * * * * Physician Interpretation * * * * RESULT: [place] [address] [place] [address] #[id number] - ELSA SCREENING W ERYN HISTORY: 69 year-old patient presents for screening. Patient is asymptomatic in both breasts. Patient states no personal history of breast cancer. The patient has a family history of breast cancer. COMPARISON STUDIES: The present examination has been compared to prior imaging studies dated 04/23/2016 (mammogram), 06/03/2017 (mammogram) and 06/17/2024 (mammogram). MAMMOGRAM TECHNIQUE: The study was acquired using full field digital technology and interpreted from soft copy. Digital Breast Tomosynthesis (DBT) images were obtained and used to assist in the interpretation of this examination. MAMMOGRAM FINDINGS: There are scattered areas of fibroglandular density. There are no significant interval changes. No suspicious masses, calcifications or other abnormalities are seen in either breast. IMPRESSION: There is no mammographic evidence of malignancy. Routine screening mammogram is recommended. Annual mammogram will be due in 1 year. BI-RADS Category 2: Benign RISK: Based on the Tyrer-Cuzick (TC) risk assessment model, this patient has a 3.3% lifetime risk of developing breast cancer, meaning they are at average risk for developing breast cancer. However, this is only an estimate based on available history provided on the patient's questionnaire. We encourage all patients to talk with their providers about these results, further recommendations for managing breast health, and appropriate supplemental screening options if the patient has dense breast tissue. Interpreting Radiologist: Regan Muniz M.D. Electronically signed on: 06/22/2025 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: PRANAV Transcribe Date/Time: Jun 20 2025 12:52P Dictated by: REGAN MUNIZ MD This examination was interpreted and the report reviewed and electronically signed by: REGAN MUNIZ MD on Jun 22 2025 3:49PM EST [id number] Normal [facility] XR THORACIC SPINE 3 VIEWSon 05-30-2025 XR THORACIC SPINE 3 VIEWS Interpreted By: Kingston Hernandez, STUDY: XR THORACIC SPINE 3 VIEWS INDICATION: Signs/Symptoms:BACK PAIN. COMPARISON: May 30 ACCESSION NUMBER(S): [id number] ORDERING CLINICIAN: RENAE BRUCE FINDINGS: Moderate diffuse thoracic degenerative change. Alignment normal without fracture. IMPRESSION: Moderate thoracic degenerative changes. Signed by: Kingston Hernandez 05/31/2025 11:56 AM Dictation workstation: [id number] [facility] XR CERVICAL SPINE COMPLETE 4 -5 VIEWSon 05-19-2025 XR CERVICAL SPINE COMPLETE 4-5 VIEWS Interpreted By: Isai Landry, STUDY: XR CERVICAL SPINE COMPLETE 4-5 VIEWS; ; 05/19/2025 11:17 am INDICATION: Signs/Symptoms:NECK PAIN. ,M99.01 Segmental and somatic dysfunction of cervical region,M99.03 Segmental and somatic dysfunction of lumbar region COMPARISON: None. ACCESSION NUMBER(S): [id number] ORDERING CLINICIAN: RENAE BRUCE FINDINGS: Moderate disc space narrowing osteophytosis at C5-C6. There is no fracture. There is no spondylolisthesis. There is no other disc space narrowing or osteophytosis. The neural foramina are patent. The prevertebral soft tissues are within normal limits. IMPRESSION: Moderate spondylosis at C5-C6 MACRO: None Signed by: Isai Landry 05/20/2025 9:08 AM Dictation workstation: [id number] [facility] XR LUMBAR SPINE COMPLETE 4+ VIEWSon 05-19-2025 XR LUMBAR SPINE COMPLETE 4+ VIEWS Interpreted By: Isai Landry, STUDY: XR LUMBAR SPINE COMPLETE 4+ VIEWS; ; 05/19/2025 11:17 am INDICATION: Signs/Symptoms:BACK PAIN. ,M47.812 Spondylosis without myelopathy or radiculopathy, cervical region,M47.816 Spondylosis without myelopathy or radiculopathy, lumbar region COMPARISON: None. ACCESSION NUMBER(S): [id number] ORDERING CLINICIAN: RENAE BRUCE FINDINGS: Moderate facet disease in the mid to lower lumbar spine. There is mild anterolisthesis of L4 on L5 and L5 on S1. There is mild multilevel disc space narrowing with moderate osteophytosis and sclerosis throughout the lumbar spine. No fracture seen IMPRESSION: Mild to moderate spondylosis throughout the lumbar spine along with moderate facet disease in the lower levels. Mild anterolisthesis L4 on L5 and L5-S1 MACRO: None Signed by: Isai Landry 05/20/2025 9:09 AM Dictation workstation: [id number] [facility] KRISTA CAMPBELL ([id number]) 1955 F Date Time Provider Department 05/15/25 TATY JULIAN [facility] During your visit today, we recorded the following information about you: Diana Mcghee LPN 05/15/2025 1:48 PM Signed Electronic PA rec'd and completed for trulicity. This was approved. Approved Prior authorization approved Payer: [employer] Part D [id number] Note from payer: This medication or product was previously approved on [id number] from 2024-12-09 to 2025-10-18. Please note: This request was submitted electronically. Formulary lowering, tiering exception, cost reduction and/or pre-benefit determination review (including prospective Medicare hospice reviews) requests cannot be requested using this method of submission. Providers contact us at for further assistance. - Prescriber details have been updated to match the prescriber directory. Electronic appeal: Not supported View History Medication Being Authorized dulaglutide (TRULICITY) 3 mg/0.5 mL pen injector Inject 3 mg subcutaneously one time a week. Dispense: 6 mL Refills: 3 Start: 05/15/2025 Class: Normal Diagnoses: Type 2 diabetes mellitus without complication, without long-term current use of insulin (HCC) This order has been released to its destination. To be filled at: [facility] [address] [place] [address] [address] [facility] [phone] Allergies As of Date: 05/15/2025 Noted Allergy Reaction [id number] REDUCTASE INHIBIT*03/12/2023 17 - Myalgia Comments: Knees shake, weak and joints ache CIPRO (CIPROFLOXACIN) 08/28/2009 4 - Hives METRONIDAZOLE 08/28/2009 4 - Hives PENICILLINS 07/16/2005 2 - Rash Comments: Age 19 -- rash all over, hives SULFA (SULFONAMIDE ANTIBIOTICS) 07/16/2005 2 - Rash Date Reviewed: 04/10/2025 Reviewed by: Jett Kirkpatrick MA - Fully Assessed Reason for Visit: Insurance Authorization [1693] Prescriptions as of 05/15/2025 - dulaglutide (TRULICITY) 3 mg/0.5 mL pen injector Inject 3 mg subcutaneously one time a week. - levothyroxine (SYNTHROID) 75 mcg tablet Take 1 tablet by mouth once daily. - ascorbic acid, vitamin C, (VITAMIN C) 500 mg tablet Take 1 tablet by mouth two times a day. - ferrous sulfate 325 mg (65 mg iron) tablet Take 1 tablet by mouth every other day. - carvedilol (COREG) 6.25 mg tablet Take 1 tablet by mouth two times a day with meals. - pantoprazole DR (PROTONIX) 40 mg tablet Take 1 tablet by mouth two times a day. - ezetimibe (ZETIA) 10 mg tablet Take 1 tablet by mouth once daily. - metFORMIN (GLUCOPHAGE) 1,000 mg tablet Take 1 tablet by mouth two times a day with meals. - rifAXIMin (XIFAXAN) 550 mg tablet Take 550 mg by mouth two times a day. - spironolactone (ALDACTONE) 25 mg tablet Take 25 mg by mouth once daily. Take half pill daily - allopurinol (ZYLOPRIM) 100 mg tablet Take 1 tablet by mouth once daily. - Magnesium 250 mg tab Take 1 tablet by mouth twice daily. - lactulose 10 gram/15 mL solution Take 30 mL by mouth. - gabapentin (NEURONTIN) 400 mg capsule Take 1 capsule by mouth twice daily. - vitamin C-biotin (RUBF-ASOH-DDSGY, VIT C-BIOTIN,) 50 mg -1,250 mcg chew Take 2 tablets by mouth once daily. - EMGALITY PEN 120 mg/mL pen Inject 120 mg subcutaneously once every month. - fluorometholone (FML LIQUID FILM) 0.1 % ophthalmic suspension - rizatriptan (MAXALT) 10 mg tablet - MV-MN/FOLIC ACID/CALCIUM/VIT K (ONE-A-DAY WOMEN'S 50 PLUS ORAL) Take by mouth. - L.ACID/L.CASEI/B.BIF/B.L ON/FOS (PROBIOTIC BLEND ORAL) Take by mouth. - cycloSPORINE (RESTASIS) 0.05 % ophthalmic emulsion Use 1 Drop in both eyes twice daily. - ERYTHROMYCIN BASE (ERYTHROMYCIN OPHTHALMIC) Use in eyes. - VIT C/NARCISA AC/LUT/COPPER/ZNOX (PRESERVISION LUTEIN ORAL) Take 1 tablet by mouth twice daily. Problem List As Of Date 05/15/2025 Noted Resolved Intractable migraine without aura [G43.019] 09/23/2006 1.8.1 TRANSFORMED MIGRAINE W/ MEDICATION OVERUS*09/23/2006 Abnormal mammogram, unspecified [R92.8] 06/14/2007 08/20/2011 DIFFUS CYSTIC MASTOPATHY [N60.19] 06/05/2008 Nonspecific abnormal finding in stool contents *01/09/2010 08/20/2011 Benign Neoplasm of Colon [D12.6] 01/09/2010 Hypothyroidism [E03.9] 08/20/2011 Elevated LFTs [R79.89] 08/20/2011 Obesity [E66.9] 08/20/2011 Back pain [M54.9] 11/08/2014 Screening for colon cancer [Z12.11] 03/27/2016 03/27/2016 Chronic left shoulder pain [M25.512, G89.29] 01/07/2017 Arthralgia of both elbows [M25.521, M25.522] 01/07/2017 Type 2 diabetes mellitus without complication, *12/02/2017 Steatosis of liver [K76.0] 03/10/2018 Epigastric pain [R10.13] 03/24/2018 Globus sensation [R09.A2] 03/24/2018 Gout [M10.9] 06/01/2019 Impingement syndrome of left shoulder [M75.42] 11/28/2020 Hepatic cirrhosis, unspecified hepatic cirrhosi* (more content not included)... [facility] KRISTA CAMPBELL ([id number]) 1955 F Date Time Provider Department 05/15/25 TATY JULIAN [facility] During your visit today, we recorded the following information about you: Heavenly Sunshine LPN 05/15/2025 1:22 PM Signed Pt calls to report that her "liver dr" (Dr. Worrell) wants pcp to reduce Trulicity 4.5 mg to 3.5 mg. Pt's last OV: 5/23/25 with pcp. Last labs: 04/18/25 Heavenly Sunshine, Isrrael Juarez APRN.DWIGHT 05/15/2025 1:37 PM Signed Her Hgb A1c was well controlled at last visit. We can decrease her dose to 3 mg weekly. The following approved medication requests have been transmitted electronically. Requested Prescriptions Signed Prescriptions Disp Refills dulaglutide (TRULICITY) 3 mg/0.5 mL pen injector 6 mL 3 Sig: Inject 3 mg subcutaneously one time a week. Authorizing Provider: ISRRAEL BRUNER APRN.Vivien Mckay MA 05/15/2025 1:39 PM Signed Pt notified. Vivien Sharma MA Allergies As of Date: 05/15/2025 Noted Allergy Reaction [id number]-[id number] REDUCTASE INHIBIT*03/12/2023 17 - Myalgia Comments: Knees shake, weak and joints ache CIPRO (CIPROFLOXACIN) 08/28/2009 4 - Hives METRONIDAZOLE 08/28/2009 4 - Hives PENICILLINS 07/16/2005 2 - Rash Comments: Age 19 -- rash all over, hives SULFA (SULFONAMIDE ANTIBIOTICS) 07/16/2005 2 - Rash Date Reviewed: 04/10/2025 Reviewed by: Jett Kirkpatrick MA - Fully Assessed Reason for Visit: Medication Question [1478] Primary Visit Diagnosis:Type 2 diabetes mellitus without complication, without long-term current use of insulin (HCC) [E11.9] Order(s):dulaglutide (TRULICITY) 3 mg/0.5 mL pen injectorInject 3 mg subcutaneously one time a week.Disp: 6 mLRfl: 3 Prescriptions as of 05/15/2025 - dulaglutide (TRULICITY) 3 mg/0.5 mL pen injector Inject 3 mg subcutaneously one time a week. - levothyroxine (SYNTHROID) 75 mcg tablet Take 1 tablet by mouth once daily. - ascorbic acid, vitamin C, (VITAMIN C) 500 mg tablet Take 1 tablet by mouth two times a day. - ferrous sulfate 325 mg (65 mg iron) tablet Take 1 tablet by mouth every other day. - carvedilol (COREG) 6.25 mg tablet Take 1 tablet by mouth two times a day with meals. - pantoprazole DR (PROTONIX) 40 mg tablet Take 1 tablet by mouth two times a day. - ezetimibe (ZETIA) 10 mg tablet Take 1 tablet by mouth once daily. - metFORMIN (GLUCOPHAGE) 1,000 mg tablet Take 1 tablet by mouth two times a day with meals. - rifAXIMin (XIFAXAN) 550 mg tablet Take 550 mg by mouth two times a day. - spironolactone (ALDACTONE) 25 mg tablet Take 25 mg by mouth once daily. Take half pill daily - allopurinol (ZYLOPRIM) 100 mg tablet Take 1 tablet by mouth once daily. - Magnesium 250 mg tab Take 1 tablet by mouth twice daily. - lactulose 10 gram/15 mL solution Take 30 mL by mouth. - gabapentin (NEURONTIN) 400 mg capsule Take 1 capsule by mouth twice daily. - vitamin C-biotin (MXNA-LNEI-IYHBV, VIT C-BIOTIN,) 50 mg -1,250 mcg chew Take 2 tablets by mouth once daily. - EMGALITY PEN 120 mg/mL pen Inject 120 mg subcutaneously once every month. - fluorometholone (FML LIQUID FILM) 0.1 % ophthalmic suspension - rizatriptan (MAXALT) 10 mg tablet - MV-MN/FOLIC ACID/CALCIUM/VIT K (ONE-A-DAY WOMEN'S 50 PLUS ORAL) Take by mouth. - L.ACID/L.CASEI/B.BIF/B.L ON/FOS (PROBIOTIC BLEND ORAL) Take by mouth. - cycloSPORINE (RESTASIS) 0.05 % ophthalmic emulsion Use 1 Drop in both eyes twice daily. - ERYTHROMYCIN BASE (ERYTHROMYCIN OPHTHALMIC) Use in eyes. - VIT C/NARCISA AC/LUT/COPPER/ZNOX (PRESERVISION LUTEIN ORAL) Take 1 tablet by mouth twice daily. Problem List As Of Date 05/15/2025 Noted Resolved Intractable migraine without aura [G43.019] 09/23/2006 1.8.1 TRANSFORMED MIGRAINE W/ MEDICATION OVERUS*09/23/2006 Abnormal mammogram, unspecified [R92.8] 06/14/2007 08/20/2011 DIFFUS CYSTIC MASTOPATHY [N60.19] 06/05/2008 Nonspecific abnormal finding in stool contents *01/09/2010 08/20/2011 Benign Neoplasm of Colon [D12.6] 01/09/2010 Hypothyroidism [E03.9] 08/20/2011 Elevated LFTs [R79.89] 08/20/2011 Obesity [E66.9] 08/20/2011 Back pain [M54.9] 11/08/2014 Screening for colon cancer [Z12.11] 03/27/2016 03/27/2016 Chronic left shoulder pain [M25.512, G89.29] 01/07/2017 Arthralgia of both elbows [M25.521, M25.522] 01/07/2017 Type 2 diabetes mellitus without complication, *12/02/2017 Steatosis of liver [K76.0] 03/10/2018 Epigastric pain [R10.13] 03/24/2018 Globus sensation [R09.A2] 03/24/2018 Gout [M10.9] 06/01/2019 Impingement syndrome of left shoulder [M75.42] 11/28/2020 Hepatic cirrhosis, unspecified hepatic cirrhosi*03/12/2023 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 Normal [facility] ABD Limited w/ Elastographyo n 05-03-2025 ABD Limited w/ Elastography [facility] Imaging Services [address] [place] [id number] ABD Limited w/ Elastography MR#: [id number] Acct: [id number] Name: KRISTA CAMPBELL Rep #: [id number] : 1955 F 69 From: Mao dixon MD PCP: Dr. Taty Julian MD Status: REG CL Study: ABD Limited w/ Elastography Date of Exam: 04/18 04/12 Exam# [id number] Ordering Dr: Tima Worrell MD PROCEDURE: ABD LIMITED W/ ELASTOGRAPHY REASON FOR EXAM: RUQ PAIN Six-month history. COMPARISON: None. TECHNIQUE: Right upper quadrant abdominal ultrasound. Yesenia ElastQ Imaging shear wave elastography for non- invasive assessment of liver tissue stiffness. Interwise EPIQ Elite. FINDINGS: LIVER: Size: Unremarkable Length: 16.6 cm Echotexture: Diffusely echogenic suggesting fatty infiltration Contour: Normal Lesions: None identified Elastography: EQI Med: 14.8 kPa EQI Med Rohith: 2.21 m/s IQR/Med: 16 %* GALLBLADDER: No stones sludge wall thickening or tenderness. COMMON BILE DUCT: Normal 4.5 mm. PANCREAS: Normal Visualized portions of the right kidney are unremarkable. No right upper quadrant ascites. US/ABD Limited w/ Elastography IMPRESSION: SEVERE HEPATIC FIBROSIS / CIRRHOSIS Fatty infiltration of the liver. Reference Values: SRU <1.37 m/s (5.7kPa): No to mild fibrosis 1.37 m/s - 2.2 m/s: Moderate to severe fibrosis >2.2 m/s (15kPa): Significant fibrosis / cirrhosis METAVIR Score F2 or higher: 1.34 m/s (5.7kPa) F3 or higher: 1.55 m/s (7.3kPa) F4: 1.80 m/s (10kPa) * If the IQR/Med is >30%, the variance in the measurements is a large and the accuracy of the measurement may be in question. Reading Location: [place] [address] CC: Dr. Taty Julian MD; Dr. Tima Worrell MD 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: Signed Normal [facility] Gastroenterology Visit Repor ton 04-24-2025 Gastroenterology Visit Report [facility] Gastroenterology [address] [place] [address] OFFICE VISIT Date of Service: 04/24/25 MR#: [id number] Acct: [id number] Name: KRISTA CAMPBELL Rep #: [id number] : 1955 Provider: Dr. Tima mansfield MD Age/Sex: 69/F Location: [facility] Status: Signed Intake Vital Signs 02/27/25 05:59 04/24/25 09:33 Height 4 ft 11 in 4 ft 11 in Weight: 151 lb BMI 30.4 BP 107/66 Blood Pressure Location Lt brachial Position Prone Pulse 74 Pulse Oximetry (%) 96 Oxygen Delivery Method room air Intake Visit Reasons: 4 M FU Chief Complaint: Follow up, Cirrhosis Allergies ciprofloxacin (From Cipro) Allergy (Verified 04/24/25 09:33) Other ciprofloxacin HCl (From Cipro) Allergy (Verified 04/24/25 09:33) Other metronidazole Allergy (Verified 04/24/25 09:33) Other Penicillins (PCN) Allergy (Verified 04/24/25 09:33) Other Sulfa (Sulfonamide Antibiotics) Allergy (Verified 04/24/25 09:33) Rash Dpajbnw-Rgz-Xgv Reductase Inhibitor (Zxhikma-CVC-ExQ Reductase Inhibitor) Adverse Reaction (Verified 04/24/25 09:33) Other Medications ???Medication ???Instructions ???Recorded ???Confirmed ???Type rizatriptan 10 mg tablet 10 mg PO PRN PRN Migraine Headache 12/28/13 04/24/25 History Lactobacillus acidophilus 10 mg PO DAILY Check with primary 01/18/23 04/24/25 History (Acidophilus capsule) doctor allopurinol 100 mg tablet 100 mg PO DAILY Check with primary 01/18/23 04/24/25 History doctor cyclosporine 0.05 % eye drops in a 1 drp ophthalmic (eye) BID healt h 01/18/23 04/24/25 History dropperette (Restasis) maintenance erythromycin 5 mg/gram (0.5 %) eye 1 applic ophthalmic (eye) QHS 04/24/25 History ointment health maintenance ezetimibe 10 mg tablet 10 mg PO DAILY Check with primary 01/18/23 04/24/25 History doctor fluorometholone 0.1 % eye 1 drp ophthalmic (eye) BID health 01/18/23 04/24/25 History drops,suspension maintenance gabapentin 400 mg tablet 800 mg PO QHS health maintenance 0 01/18/23 04/24/25 History galcanezumab-gnlm 120 mg/mL 120 mg subcut QMONTH Check with 04/24/25 History subcutaneous pen injector primary doctor (Emgality Pen) metformin 1,000 mg tablet 1,000 mg PO BID diabetic 01/18/23 04/24/25 History multivitamin with minerals 2 tab PO DAILY Check with primary 01/18/23 04/24/25 History (Hair,Skin and Nails tablet) doctor prfbsklavgtl-Kd-ysfj-min erals 18 2 tab PO DAILY health maintenance 01/18/23 04/24/25 History mg-0.4 mg tablet vit C 250 mg-vit E 90 mg-zinc 40 1 tab PO BID Check with primary 04/24/25 History mg-copper 1 vt-dvwrou-mytcko doctor capsule (PreserVision AREDS-2) magnesium 200 mg tablet 200 mg PO DAILY Check with primary 07/04/24 04/24/25 History doctor rifaximin 550 mg tablet (Xifaxan) 550 mg PO BID 30 days #60 tabs 04/24/25 Rx ascorbic acid (vitamin C) 500 mg 500 mg PO BID 1 month #60 tabs 04/24/25 Rx chewable tablet elderberry fruit 350 mg capsule 700 mg PO QDAY 12/29/24 04/24/25 H istory ferrous sulfate 325 mg (65 mg 325 mg PO QDAY 1 month #30 tabs 04/24/25 Rx iron) tablet levothyroxine 75 mcg tablet 75 mcg PO QDAY 1 month #30 tabs 04/24/25 Rx pantoprazole 40 mg tablet,delayed 40 mg PO QDAY 12/29/24 04/24/25 H istory release vit C 62.5 mg-vit D3 15 mcg-zinc 2 tab PO QDAY 12/29/24 04/24/25 Hi story 2.75 mg-herbal no.358 chewable tablet (Immune Power) carvedilol 6.25 mg tablet 6.25 mg PO BID 1 month #60 tabs 04/24/25 Rx lactulose 10 gram/15 mL oral 15 ml PO BID 1 month #3,785 mL 04/24/25 Rx solution spironolactone 25 mg tablet 25 mg PO DAILY 1 month #30 tabs 04/24/25 Rx dulaglutide 3 mg/0.5 mL 3 mg subcut TH Check with primary 04/24/25 04/24/25 History subcutaneous pen injector doctor (Trulicity) Have you fallen in the past year?: No PFSH Medical History Back pain Wears glasses Thyroid disease Gout Arthritis Anemia High cholesterol History of GI bleed History of diverticulitis Gastric reflux Former smoker History of edema History of echocardiogram History of stress test Hypertension Diabetes Migraines Surgical History History of esophagogastroduodenosco py (EGD) Hx of esophagogastroduodenosco py Hx of tonsillectomy History of Status post left foot surgery Family History Grandfather Diabetes Grandmother Diabetes Father Heart problem Mother CVA (cerebral vascular accident) Social History Smok (more content not included)... Normal [facility] Haptoglobinon 04-19-2025 HAPTOGLOBIN 106 mg/dL Normal 37-355 [facility] Comment on above: Result Comment: Perf ormed at: - [facility] [address] [id number] [employer] Mechanic Apprentice: Lucho Bonds PhD, Phone: [phone] Performed By: #### L 501.9985, L300.3900, L503.6030, L503.6550, Z61946-6, L504.2610, L500.4100, L500.4050, L501.4700, L100.0100, L3100.1850 ####[facility] [address] [place], [place], [phone] Absolute lymphocyte countOrd ered By: Tima Worrell on 04-18-2025 Lymphocytes Auto (Unsp spec) [#/Vol] 0.74 10*3/uL Low 0.83-4.51 [facility] Absolute neutrophil countOrd ered By: Tima Worrell on 04-18-2025 Neutrophils (Bld) [#/Vol] 2.3 10*3/uL 2.0-7.7 [facility] Anion gap in Serum or Plasma Ordered By: Tima Worrell on 04-18-2025 Anion gap [Moles/Vol] 16 mmol/L High 5-15 [facility] Automated lymphocyte count a s percentage of total leukocytesOrdered By: Tima Worrell on 04-18-2025 Lymphocytes/100 WBC Auto (Unsp spec) 21.2 % 19-41 [facility] [id number] 04-18-2025 DIRECT FELTON NEG w/POLYSPECIFIC Normal NEGATIVE [facility] Comment on above: Performed By: #### L 501.9985, L300.3900, L503.6030, L503.6550, A69905-2, L504.2610, L500.4100, L500.4050, L501.4700, L100.0100, L3100.1850 ####[facility] [address] [place], [address] BUN/creatinine ratioOrdered By: Tima Worrell on 04-18-2025 Urea nitrogen/Creatinine [Mass ratio] 24.6 mg/mg High 10-20 [facility] Basophil percentageOrdered B y: Tima Worrell on 04-18-2025 Basophils/100 WBC (Bld) 0.9 % 0-1 [facility] Bilirubin directOrdered By: Tima Worrell on 04-18-2025 Bilirubin.direct [Mass/Vol] 0.15 mg/dL 0.00-0.30 [facility] Bilirubin, Directon 04-18-20 25 Bilirubin.direct [Mass/Vol] 0.15 mg/dL Normal 0.00-0.30 [facility] Comment on above: Performed By: #### L 501.9985, L300.3900, L503.6030, L503.6550, X16378-2, L504.2610, L500.4100, L500.4050, L501.4700, L100.0100, L3100.1850 ####[facility] [address] [place], [address] Bilirubin, totalOrdered By: Tima Worrell on 04-18-2025 Bilirubin [Mass/Vol] 0.27 mg/dL 0.00-1.30 [facility] CBC W/Diff, Automatedon Platelets (Bld) [#/Vol] 50 10*3/uL Invalid Interpretation Code 150-450 [facility] Comment on above: Result Comment: CRIT ICAL VALUE CALLED TO DR WORRELL 04/18/25 1034 Sarah Sheppard. RESULTS READ BACK BY SAME. Performed By: #### L 501.9985, L300.3900, L503.6030, L503.6550, O75044-5, L504.2610, L500.4100, L500.4050, L501.4700, L100.0100, L3100.1850 ####[facility] [address] [place], [address] Absolute Lymph 0.74 X10 3/uL Low 0.83-4.51 [facility] Comment on above: Performed By: #### L 501.9985, L300.3900, L503.6030, L503.6550, E82978-1, L504.2610, L500.4100, L500.4050, L501.4700, L100.0100, L3100.1850 ####[facility] [address] [place], [address] Absolute Neut 2.3 X10 3/uL Normal 2.0-7.7 [facility] Comment on above: Performed By: #### L 501.9985, L300.3900, L503.6030, L503.6550, S30386-5, L504.2610, L500.4100, L500.4050, L501.4700, L100.0100, L3100.1850 ####[facility] [address] [place], [address] Basophils/100 WBC (Bld) 0.9 % Normal 0-1 [facility] Comment on above: Performed By: #### L 501.9985, L300.3900, L503.6030, L503.6550, H64132-0, L504.2610, L500.4100, L500.4050, L501.4700, L100.0100, L3100.1850 ####[facility] [address] [place], [address] Eosinophils/100 WBC (Bld) 6.3 % High 0-5 [facility] Comment on above: Performed By: #### L 501.9985, L300.3900, L503.6030, L503.6550, O54852-0, L504.2610, L500.4100, L500.4050, L501.4700, L100.0100, L3100.1850 ####[facility] [address] [place], [address] Erythrocyte distribution width (RBC) [Ratio] 15.5 % High 11.6-14.6 [facility] Comment on above: Performed By: #### L 501.9985, L300.3900, L503.6030, L503.6550, X96048-7, L504.2610, L500.4100, L500.4050, L501.4700, L100.0100, L3100.1850 ####[facility] [address] [place], [place], [phone]([phone] Hematocrit (Bld) [Volume fraction] 33.1 % Low 37-47 [facility] Comment on above: Performed By: #### L 501.9985, L300.3900, L503.6030, L503.6550, X15446-8, L504.2610, L500.4100, L500.4050, L501.4700, L100.0100, L3100.1850 ####[facility] [address] [place], [place], [phone](162) Hemoglobin (Bld) [Mass/Vol] 9.8 g/dL Low 12.0-15.0 [facility] Comment on above: Performed By: #### L 501.9985, L300.3900, L503.6030, L503.6550, J68490-7, L504.2610, L500.4100, L500.4050, L501.4700, L100.0100, L3100.1850 ####[facility] [address] [place], [address] IG% 0.300 Normal 0.0-0.9 [facility] Comment on above: Result Comment: IG% - Immature Granulocytes (promyelocytes, myelocytes and metamyelocytes) > 1% indicates that a LEFT SHIFT is Present. Performed By: #### L 501.9985, L300.3900, L503.6030, L503.6550, X49570-8, L504.2610, L500.4100, L500.4050, L501.4700, L100.0100, L3100.1850 ####[facility] [address] [facility] [place], [address] Lymphocytes/100 WBC (Bld) 21.2 % Normal 19-41 [facility] Comment on above: Performed By: #### L 501.9985, L300.3900, L503.6030, L503.6550, Q38414-0, L504.2610, L500.4100, L500.4050, L501.4700, L100.0100, L3100.1850 ####[facility] [address] [facility] [place], [address] MCH (RBC) [Entitic mass] 27.3 pg Normal 27.0-32.0 [facility] Comment on above: Performed By: #### L 501.9985, L300.3900, L503.6030, L503.6550, V34899-6, L504.2610, L500.4100, L500.4050, L501.4700, L100.0100, L3100.1850 ####[facility] [address] [facility] [facility] [facility] [address] [place], [address] MCHC (RBC) [Mass/Vol] 29.6 g/dL Low 32-36 [facility] Comment on above: Performed By: #### L 501.9985, L300.3900, L503.6030, L503.6550, O39410-1, L504.2610, L500.4100, L500.4050, L501.4700, L100.0100, L3100.1850 ####[facility] [address] [place], [address] MCV (RBC) [Entitic vol] 92.2 fL Normal 81-99 [facility] Comment on above: Performed By: #### L 501.9985, L300.3900, L503.6030, L503.6550, P36858-7, L504.2610, L500.4100, L500.4050, L501.4700, L100.0100, L3100.1850 ####[facility] [address] [place], [address] Monocytes/100 WBC (Bld) 6.6 % Normal 0-10 [facility] Comment on above: Performed By: #### L 501.9985, L300.3900, L503.6030, L503.6550, P89597-1, L504.2610, L500.4100, L500.4050, L501.4700, L100.0100, L3100.1850 ####[facility] [address] [place], [address] Neutrophils/100 WBC (Bld) 64.7 % Normal 47-70 [facility] Comment on above: Performed By: #### L 501.9985, L300.3900, L503.6030, L503.6550, W60109-3, L504.2610, L500.4100, L500.4050, L501.4700, L100.0100, L3100.1850 ####[facility] [address] [place], [address] Nucleated RBC (Bld) [#/Vol] 0 10*3/uL Normal 0-5 [facility] Comment on above: Performed By: #### L 501.9985, L300.3900, L503.6030, L503.6550, N88026-7, L504.2610, L500.4100, L500.4050, L501.4700, L100.0100, L3100.1850 ####[facility] [address] [place], [address](764) Platelet mean volume (Bld) [Entitic vol] 11.7 fL Normal 6.2-12.0 [facility] Comment on above: Performed By: #### L 501.9985, L300.3900, L503.6030, L503.6550, Q59859-7, L504.2610, L500.4100, L500.4050, L501.4700, L100.0100, L3100.1850 ####[facility] [address] [place], [address] RBC (Bld) [#/Vol] 3.59 10*6/uL Low 4.2-5.4 [facility] Comment on above: Performed By: #### L 501.9985, L300.3900, L503.6030, L503.6550, I14616-6, L504.2610, L500.4100, L500.4050, L501.4700, L100.0100, L3100.1850 ####[facility] [address] [place], [address] RDW SD 50.6 fl High 35.1-43.9 [facility] Comment on above: Performed By: #### L 501.9985, L300.3900, L503.6030, L503.6550, N09366-0, L504.2610, L500.4100, L500.4050, L501.4700, L100.0100, L3100.1850 ####[facility] [address] [place], [address] WBC (Bld) [#/Vol] 3.5 10*3/uL Low 4.4-11.0 [facility] Comment on above: Performed By: #### L 501.9985, L300.3900, L503.6030, L503.6550, Z60421-8, L504.2610, L500.4100, L500.4050, L501.4700, L100.0100, L3100.1850 ####[facility] [address] [place], [address] Calculated very low density lipoprotein (VLDL) cholesterol measurementOrdered By: Tima Worrell on 04-18-2025 Calculated very low density lipoprotein (VLDL) cholesterol measurement 42 mg/dL High 5-40 [facility] Carbon dioxide, total [Moles /volume] in Central venous bloodOrdered By: Tima Worrell on 04-18-2025 CO2 [Moles/Vol] 21.2 mmol/L 21.0-32.0 [facility] Chloride assayOrdered By: Demetrius Worrell on 04-18-2025 Chloride [Moles/Vol] 102 mmol/L 98-108 [facility] Comprehensive Metabolic Prof ilon 04-18-2025 Albumin [Mass/Vol] 4.2 g/dL Normal 3.4-4.8 [facility] Comment on above: Performed By: #### L 501.9985, L300.3900, L503.6030, L503.6550, M06068-2, L504.2610, L500.4100, L500.4050, L501.4700, L100.0100, L3100.1850 #### [facility] [address] [place], [address] Albumin/Globulin [Mass ratio] 1.6 {ratio} Normal 0.9-2.4 [facility] Comment on above: Performed By: #### L 501.9985, L300.3900, L503.6030, L503.6550, N00882-4, L504.2610, L500.4100, L500.4050, L501.4700, L100.0100, L3100.1850 #### [facility] [address] [place], [place], [phone] (299) ALK PHOS 84 U/L Normal 35-104 [facility] Comment on above: Performed By: #### L 501.9985, L300.3900, L503.6030, L503.6550, S32408-4, L504.2610, L500.4100, L500.4050, L501.4700, L100.0100, L3100.1850 #### [facility] [address] [place], [place], [phone] (989) ALT [Catalytic activity/Vol] 21 U/L Normal <=34 [facility] Comment on above: Performed By: #### L 501.9985, L300.3900, L503.6030, L503.6550, Y53816-3, L504.2610, L500.4100, L500.4050, L501.4700, L100.0100, L3100.1850 #### [facility] [address] [place], [address] (104) AST [Catalytic activity/Vol] 28 U/L Normal <=31 [facility] Comment on above: Performed By: #### L 501.9985, L300.3900, L503.6030, L503.6550, T33740-0, L504.2610, L500.4100, L500.4050, L501.4700, L100.0100, L3100.1850 #### [facility] [address] [place], [place], [phone] Bilirubin [Mass/Vol] 0.27 mg/dL Normal 0.00-1.30 [facility] Comment on above: Performed By: #### L 501.9985, L300.3900, L503.6030, L503.6550, U30440-2, L504.2610, L500.4100, L500.4050, L501.4700, L100.0100, L3100.1850 #### [facility] [address] [place], [address] BUN/CRE 24.6 RATIO High 10-20 [facility] Comment on above: Performed By: #### L 501.9985, L300.3900, L503.6030, L503.6550, P77676-8, L504.2610, L500.4100, L500.4050, L501.4700, L100.0100, L3100.1850 #### [facility] [address] [place], [address] Calcium [Mass/Vol] 9.2 mg/dL Normal 7.6-11.0 [facility] Comment on above: Performed By: #### L 501.9985, L300.3900, L503.6030, L503.6550, B87248-3, L504.2610, L500.4100, L500.4050, L501.4700, L100.0100, L3100.1850 #### [facility] [address] [place], [address] Chloride [Moles/Vol] 102 mmol/L Normal 98-108 [facility] Comment on above: Performed By: #### L 501.9985, L300.3900, L503.6030, L503.6550, G45401-4, L504.2610, L500.4100, L500.4050, L501.4700, L100.0100, L3100.1850 #### [facility] [address] [place], [address] CO2 [Moles/Vol] 21.2 mmol/L Normal 21.0-32.0 [facility] Comment on above: Performed By: #### L 501.9985, L300.3900, L503.6030, L503.6550, W23719-2, L504.2610, L500.4100, L500.4050, L501.4700, L100.0100, L3100.1850 #### [facility] [address] [place], [place], [phone] (795) Creatinine [Mass/Vol] 0.59 mg/dL Low 0.70-1.20 [facility] Comment on above: Performed By: #### L 501.9985, L300.3900, L503.6030, L503.6550, U34189-5, L504.2610, L500.4100, L500.4050, L501.4700, L100.0100, L3100.1850 #### [facility] [address] [place], [place], [phone] (504) GAP 16 High 5-15 [facility] Comment on above: Performed By: #### L 501.9985, L300.3900, L503.6030, L503.6550, N22288-1, L504.2610, L500.4100, L500.4050, L501.4700, L100.0100, L3100.1850 #### [facility] [address] [place], [place], [phone] (268) GFR/1.73 sq M.predicted among non-blacks MDRD (S/P/Bld) [Vol rate/Area] 97 mL/min/{1.73_m2} Normal >60 [facility] Comment on above: Result Comment: mL/m in/1.73m2 CKD-EPI Creatinine Equation (2020) Performed By: #### L 501.9985, L300.3900, L503.6030, L503.6550, P94349-2, L504.2610, L500.4100, L500.4050, L501.4700, L100.0100, L3100.1850 #### [facility] [address] [place], [place], [phone] (998) Globulin (S) [Mass/Vol] 2.6 g/dL Normal 2.2-4.2 [facility] Comment on above: Performed By: #### L 501.9985, L300.3900, L503.6030, L503.6550, L36100-9, L504.2610, L500.4100, L500.4050, L501.4700, L100.0100, L3100.1850 #### [facility] [address] [place], [address] Glucose [Mass/Vol] 234 mg/dL High 70-99 [facility] Comment on above: Performed By: #### L 501.9985, L300.3900, L503.6030, L503.6550, T94624-6, L504.2610, L500.4100, L500.4050, L501.4700, L100.0100, L3100.1850 #### [facility] [address] [place], [address] Potassium [Moles/Vol] 3.8 mmol/L Normal 3.3-5.1 [facility] Comment on above: Performed By: #### L 501.9985, L300.3900, L503.6030, L503.6550, H78082-4, L504.2610, L500.4100, L500.4050, L501.4700, L100.0100, L3100.1850 #### [facility] [address] [place], [address] Sodium [Moles/Vol] 139 mmol/L Normal 133-145 [facility] Comment on above: Performed By: #### L 501.9985, L300.3900, L503.6030, L503.6550, W12024-2, L504.2610, L500.4100, L500.4050, L501.4700, L100.0100, L3100.1850 #### [facility] [address] [facility] [place], [place], [address] T PROT 6.8 g/dL Normal 5.9-8.4 [facility] Comment on above: Performed By: #### L 501.9985, L300.3900, L503.6030, L503.6550, F09832-4, L504.2610, L500.4100, L500.4050, L501.4700, L100.0100, L3100.1850 #### [facility] [address] [facility] [place], [place], [phone] Urea nitrogen [Mass/Vol] 15 mg/dL Normal 4-19 [facility] Comment on above: Performed By: #### L 501.9985, L300.3900, L503.6030, L503.6550, V99187-0, L504.2610, L500.4100, L500.4050, L501.4700, L100.0100, L3100.1850 #### [facility] [address] [facility] [place], [place], [phone] Eosinophil percentageOrdered By: [facility] on 04-18-2025 Eosinophils/100 WBC (Bld) 6.3 % High 0-5 [facility] Erythrocyte distribution wid th ratioOrdered By: [facility] on 04-18-2025 Erythrocyte distribution width (RBC) [Ratio] 15.5 % High 11.6-14.6 [facility] Erythrocyte distribution wid th standard deviationOrdered By: [facility] on 04-18-2025 Erythrocyte distribution width (RBC) [Ratio] 50.6 fl High 35.1-43.9 [facility] Ferritinon 04-18-2025 Ferritin [Mass/Vol] 20 ng/mL Low 22-378 [facility] Comment on above: Performed By: #### L 501.9985, L300.3900, L503.6030, L503.6550, K89589-9, L504.2610, L500.4100, L500.4050, L501.4700, L100.0100, L3100.1850 ####[facility] [address] [place], [place], [phone] Glomerular filtration rate ( GFR) estimation/1.73 sq m using serum, plasma, or whole bOrdered By: Tima Worrell on 04-18-2025 GFR/1.73 sq M.predicted among non-blacks MDRD (S/P/Bld) [Vol rate/Area] 97 mL/min/{1.73_m2} >60 [facility] Comment on above: mL/min/1.73m2 CKD-EP I Creatinine Equation (2020) Hematocrit Auto (Bld) [Volum e fraction]Ordered By: Tima Worrell on 04-18-2025 Hematocrit (Bld) [Volume fraction] 33.1 % Low 37-47 [facility] Hemoglobin A1con 04-18-2025 HbA1c (Bld) [Mass fraction] 6.0 % High <=5.6 [facility] Comment on above: Result Comment: Norm al < 5.7 % Prediabetic 5.7 - 6.4 % Diabetic >or= 6.5 % Please note range changes. Performed By: #### L 501.9985, L300.3900, L503.6030, L503.6550, E10965-7, L504.2610, L500.4100, L500.4050, L501.4700, L100.0100, L3100.1850 #### [facility] [address] [place], [place], [phone] Hemoglobin A1c percentageOrd ered By: Tima Worrell on 04-18-2025 HbA1c (Bld) [Mass fraction] 6.0 % High <5.7 [facility] Comment on above: Normal < 5.7 % Predi abetic 5.7 - 6.4 % Diabetic >or= 6.5 % Please note range changes. Hemoglobin measurementOrdere d By: Tima Worrell on 04-18-2025 Hemoglobin (Bld) [Mass/Vol] 9.8 g/dL Low 12.0-15.0 [facility] Immature granulocytes/100 WB C Auto (Bld)Ordered By: Tima Worrell on 04-18-2025 Immature granulocytes/100 WBC (Bld) 0.300 % 0.0-0.9 [facility] Comment on above: IG% - Immature Granu locytes (promyelocytes, myelocytes and metamyelocytes) > 1% indicates that a LEFT SHIFT is Present. International normalized rat io (INR) calculationOrdered By: Tima Worrell on 04-18-2025 INR Coag (Bld) [Relative time] 1.0 {INR} [facility] Iron measurement (mass/mass) Ordered By: Tima Worrell on 04-18-2025 Iron (Unsp spec) [Mass/Mass] 59 ug/dL 50-170 [facility] Iron+Iron Binding Capacityon 04-18-2025 Iron [Mass/Vol] 59 ug/dL Normal 50-170 [facility] Comment on above: Performed By: #### L 501.9985, L300.3900, L503.6030, L503.6550, [id number], L504.2610, L500.4100, L500.4050, L501.4700, L100.0100, L3100.1850 ####[facility] [id number] [place], [place], [id number] IRON SATURATION 15.0 Normal 13-59 [facility] Comment on above: Performed By: #### L 501.9985, L300.3900, L503.6030, L503.6550, [id number], L504.2610, L500.4100, L500.4050, L501.4700, L100.0100, L3100.1850 ####[facility] [id number] [place], [place], [id number] TIBC 401 ug/dL Normal 250-450 [facility] Comment on above: Performed By: #### L 501.9985, L300.3900, L503.6030, L503.6550, [id number], L504.2610, L500.4100, L500.4050, L501.4700, L100.0100, L3100.1850 ####[facility] [id number] [place], [address] UIBC 342 ug/dL Normal 228-428 [facility] Comment on above: Performed By: #### L 501.9985, L300.3900, L503.6030, L503.6550, Z73052-5, L504.2610, L500.4100, L500.4050, L501.4700, L100.0100, L3100.1850 ####[facility] [address] [place], [address] LDHon 04-18-2025 LDH 146 U/L Normal 84-246 [facility] Comment on above: Order Comment: 1 Performed By: #### L 501.9985, L300.3900, L503.6030, L503.6550, G75411-6, L504.2610, L500.4100, L500.4050, L501.4700, L100.0100, L3100.1850 ####[facility] [address] [place], [place], [phone] LDL calc ser/plasOrdered By: Tima Worrell on 04-18-2025 Cholesterol in LDL [Mass/Vol] 50 mg/dL [facility] Comment on above: Rwbehljuqx=753-609 m g/dL & Higher Norv=787 mg/dL or greater Laboratory - Chemistry and C hemistry - challengeOrdered By: Tima Worrell on 04-18-2025 AST [Catalytic activity/Vol] 28 U/L <32 [facility] Lactate dehydrogenase (LDH) measurementOrdered By: Tima Worrell on 04-18-2025 LDH [Catalytic activity/Vol] 146 U/L 84-246 [facility] Lipid Profileon 04-18-2025 CHOL:HDL 3.40 Normal [facility] Comment on above: Performed By: #### L 501.9985, L300.3900, L503.6030, L503.6550, K14464-3, L504.2610, L500.4100, L500.4050, L501.4700, L100.0100, L3100.1850 ####[facility] [address] [place], [place], [phone](481) Cholesterol [Mass/Vol] 131 mg/dL Normal <=200 [facility] Comment on above: Result Comment: Chol esterol level, Desirable <200 mg/dL Borderline high cholesterol 200-239 mg/dL High cholesterol >=240 mg/dL Recommendations of the NCEP Adult Treatment Panel for the following risk-cutoff thresholds for the [place] population. Performed By: #### L 501.9985, L300.3900, L503.6030, L503.6550, I05215-3, L504.2610, L500.4100, L500.4050, L501.4700, L100.0100, L3100.1850 ####[facility] [address] [place], [place], [phone]) Cholesterol in HDL [Mass/Vol] 39 mg/dL Low [facility] Comment on above: Result Comment: Flor onal Cholesterol Education Program (NCEP) guidelines: <40 mg/dL: Low HDL-cholesterol (major risk factor for CHD) >= 60 mg/dL: High HDL-cholesterol (negative risk factor for CHD) HDL-cholesterol is affected by a number of factors, e.g. smoking, exercise, hormones, sex and age. Performed By: #### L 501.9985, L300.3900, L503.6030, L503.6550, W85412-8, L504.2610, L500.4100, L500.4050, L501.4700, L100.0100, L3100.1850 ####[facility] [address] [place], [place], [phone] Cholesterol in LDL [Mass/Vol] 50 mg/dL Normal [facility] Comment on above: Result Comment: Bord norppv=494-637 mg/dL Higher Znrn=532 mg/dL or greater Performed By: #### L 501.9985, L300.3900, L503.6030, L503.6550, S94720-5, L504.2610, L500.4100, L500.4050, L501.4700, L100.0100, L3100.1850 ####[facility] [address] [place], [place], [phone] Cholesterol in VLDL [Mass/Vol] 42 mg/dL High 5-40 [facility] Comment on above: Performed By: #### L 501.9985, L300.3900, L503.6030, L503.6550, P03581-8, L504.2610, L500.4100, L500.4050, L501.4700, L100.0100, L3100.1850 ####[facility] [address] [place], [place], [phone] Triglyceride [Mass/Vol] 212 mg/dL High [facility] Comment on above: Result Comment: The drugs N-Acetylcysteine and Metamizole may falsely depress this assay. Normal range: <150 mg/dL Borderline High: 150-199 mg/dL High: 200-499 mg/dL Very High: >500 mg/dL Performed By: #### L 501.9985, L300.3900, L503.6030, L503.6550, B55807-4, L504.2610, L500.4100, L500.4050, L501.4700, L100.0100, L3100.1850 ####[facility] [address] [place], [place], [phone] MCV (mean corpuscular volume ) determinationOrdered By: Tima Worrell on 04-18-2025 MCV (RBC) [Entitic vol] 92.2 fL 81-99 [facility] Mean corpuscular hemoglobin (MCH) determinationOrdered By: Tima Worrell on 04-18-2025 MCH (RBC) [Entitic mass] 27.3 pg 27.0-32.0 [facility] Mean corpuscular hemoglobin concentration (MCHC) determinationOrdered By: iTma Worrell on 04-18-2025 MCHC (RBC) [Mass/Vol] 29.6 g/dL Low 32-36 [facility] Mean platelet volume determi nationOrdered By: Tima Worrell on 04-18-2025 Platelet mean volume (Bld) [Entitic vol] 11.7 fL 6.2-12.0 [facility] Monocyte percentageOrdered B y: Tima Worrell on 04-18-2025 Monocytes/100 WBC (Bld) 6.6 % 0-10 [facility] Neutrophil percentageOrdered By: Tima Worrell on 04-18-2025 Neutrophils/100 WBC (Bld) 64.7 % 47-70 [facility] No Panel InformationOrdered By: Tima Worrell on 04-18-2025 Unsaturated Iron Binding Capacity 342 ug/dL 228-428 [facility] Nucleated red blood cell per centageOrdered By: Tima Worrell on 04-18-2025 Nucleated RBC/100 WBC (Bld) [Ratio] 0 % 0-5 [facility] Platelet countOrdered By: Demetrius Worrell on 04-18-2025 Platelets (Bld) [#/Vol] 50 10*3/uL Critically low 150-450 [facility] Comment on above: CRITICAL VALUE DIAZ D TO DR WORRELL04/18/25 1034 Sarah Sheppard.RESULTS READ BACK BY SAME. Potassium measurement (mass/ volume)Ordered By: Tima Worrell on 04-18-2025 Potassium (Unsp spec) [Mass/Vol] 3.8 mmol/L 3.3-5.1 [facility] Prothrombin Time w/INRon INR Coag (PPP) [Relative time] 1.0 {INR} Normal [facility] Comment on above: Performed By: #### L 501.9985, L300.3900, L503.6030, L503.6550, F40030-3, L504.2610, L500.4100, L500.4050, L501.4700, L100.0100, L3100.1850 #### [facility] Laboratory [address] [place], [place], [phone] PT Coag (PPP) [Time] 13.3 s Normal 11.7-14.9 [facility] Comment on above: Performed By: #### L 501.9985, L300.3900, L503.6030, L503.6550, N18735-3, L504.2610, L500.4100, L500.4050, L501.4700, L100.0100, L3100.1850 #### [facility] [address] [place], [address] Prothrombin timeOrdered By: Tima Worrell on 04-18-2025 PT Coag (PPP) [Time] 13.3 s 11.7-14.9 [facility] RBC Auto (Bld) [#/Vol]Ordere d By: Tima Worrell on 04-18-2025 RBC (Bld) [#/Vol] 3.59 10*6/uL Low 4.2-5.4 [facility] Screening total cholesterol/ high density lipoprotein (HDL) cholesterol ratioOrdered By: Tima Worrell on 04-18-2025 Cholesterol.total/Kristi sterol in HDL [Mass ratio] 3.40 {ratio} [facility] Serum creatinine measurement (mass/volume)Ordered By: Tima Worrell on 04-18-2025 Creatinine [Mass/Vol] 0.59 mg/dL Low 0.70-1.20 [facility] Serum globulin measurementOr dered By: Tima Worrell on 04-18-2025 Globulin (S) [Mass/Vol] 2.6 g/dL 2.2-4.2 [facility] Serum glucose measurement (m ass/volume)Ordered By: Tima Worrell on 04-18-2025 Glucose [Mass/Vol] 234 mg/dL High 70-99 [facility] Serum or plasma alanine chong otransferase (ALT) measurementOrdered By: Tima Worrell on 04-18-2025 ALT [Catalytic activity/Vol] 21 U/L <35 [facility] Serum or plasma albumin isabel urement (mass/volume)Ordered By: Tima Worrell on 04-18-2025 Albumin [Mass/Vol] 4.2 g/dL 3.4-4.8 [facility] Serum or plasma albumin/glob ulin mass ratioOrdered By: Tima Worrell on 04-18-2025 Albumin/Globulin [Mass ratio] 1.6 {ratio} 0.9-2.4 [facility] Serum or plasma alkaline niko sphatase measurementOrdered By: Tima Worrell on 04-18-2025 ALP [Catalytic activity/Vol] 84 U/L 35-104 [facility] Serum or plasma calcium isabel urement (mass/volume)Ordered By: Tima Worrell on 04-18-2025 Calcium [Mass/Vol] 9.2 mg/dL 7.6-11.0 [facility] Serum or plasma cholesterol in HDL measurement (mass/volume)Ordered By: Tima Worrell on 04-18-2025 Cholesterol in HDL [Mass/Vol] 39 mg/dL Low >40 [facility] Comment on above: National Cholesterol Education Program (NCEP) guidelines:<40 mg/dL: Low HDL-cholesterol (major risk factor for CHD)>= 60 mg/dL: High HDL-cholesterol (negative risk factor for CHD)HDL-cholesterol is affected by a number of factors, e.g. smoking, exercise, hormones, sex and age. Serum or plasma cholesterol measurement (mass/volume)Ordered By: Tima Worrell on 04-18-2025 Cholesterol [Mass/Vol] 131 mg/dL <201 [facility] Comment on above: Cholesterol level, D esirable <200 mg/dLBorderline high cholesterol 200-239 mg/dLHigh cholesterol >=240 mg/dLRecommendations of the NCEP Adult Treatment Panel for the following risk-cutoff thresholds for the [place] population. Serum or plasma ferritin glenn surement (mass/volume)Ordered By: Tima Worrell on 04-18-2025 Ferritin [Mass/Vol] 20 ng/mL Low 22-378 [facility] Serum or plasma iron saturat ion measurement (mass fraction)Ordered By: Tima Worrell on 04-18-2025 Iron saturation [Mass fraction] 15.0 % 13-59 [facility] Serum or plasma urea nitroge n measurement (mass/volume)Ordered By: Tima Worrell on 04-18-2025 Urea nitrogen [Mass/Vol] 15 mg/dL 4-19 [facility] Sodium levelOrdered By: Guzman Worrell on 04-18-2025 Sodium [Moles/Vol] 139 mmol/L 133-145 [facility] Total proteinOrdered By: Amanda Worrell on 04-18-2025 Protein [Mass/Vol] 6.8 g/dL 5.9-8.4 [facility] Triglycerides measurementOrd ered By: Tima Worrell on 04-18-2025 Triglyceride [Mass/Vol] 212 mg/dL High <199 [facility] Comment on above: The drugs N-Acetylcy steine and Metamizole may falsely depress this assay. Normal range: <150 mg/dLBorderline High: 150-199 mg/dLHigh: 200-499 mg/dLVery High: >500 mg/dL White blood cell (WBC) count Ordered By: Tima Worrell on 04-18-2025 WBC (Bld) [#/Vol] 3.5 10*3/uL Low 4.4-11.0 [facility] D/C Summary- SPon 04-17-2025 D/C Summary- SP [facility] Speech Pathology [facility] [address] [place] [address]. [address] [place] [address] / REHABILITATION SERVICES DISCHARGE SUMMARY MR#: [id number] Acct: [id number] Name: KRISTA CAMPBELL Rep #: [id number] : 1955 69 From: Javier Padilla M.A., [facility] Referring Dr.: Dr. Tima Worrell MD Status: [facility] Insurance: MEDICARE PART A B [facility] Discharge Summary Discharged: Discharge: Krista Campblel is discharged from [facility] as of December 26, 2024, as she met her goals of independent use of compensatory strategies as well as completion of oropharyngeal exercises. She reported that her swallowing was better, but she continued to cough and reported sometimes it was ???even on air???. She stated she was coughing much less while eating and drinking and her agreed. She is discharged at this time as she is independent with her abilities. Please see daily notes and reports for complete details. Thank you for allowing me to participate in the care of this patient. 04/17/25 [id number] CC: Dr. Taty Julian MD; Dr. Tima Worrell MD JLM Signed Normal [facility] [place] 04-17-2025 Indication adnexal fullness Impression Normal appearing anteflexed uterus that measures 65 mm x 28 mm x 40 mm. Endometrium contains anechoic fluid and measures 3.2 mm. Both ovaries are visualized and appear atrophic. No adnexal masses were observed. There is free fluid visualized in the peritoneal cavity. Recommendations Follow up as clinically indicated. 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 th. single layer 1.9 mm Side: anterior Side: posterior Endometrial thickness, total 3.2 mm Fibroids: No fibroids identified Polyps: No polyps identified Right Ovary Rt ovary: Visualized Rt ovary morphology: postmenopausal atrophic Rt ovary D1 30 mm Rt ovary D2 16 mm Rt ovary D3 19 mm Rt ovary Vol 4.7 cm Left Ovary Lt ovary: Visualized Lt ovary morphology: postmenopausal atrophic Lt ovary D1 16 mm Lt ovary D2 14 mm Lt ovary D3 24 mm Lt ovary Vol 3.0 cm Cul de Sac Visualized. free fluid visualized: small Performed By: Santa Lanier RDMS Read By: Abisai Peralta M.D. MATERNAL MEDICINE [facility] [place] 04-14-2025 Radiology Study observation (narrative) [facility] CNOVon 04-10-2025 CNOV Office Visit (OBGYWM ) -------- KRISTA CAMPBELL ([id number]) 1955 F Date Time Provider Department 04/10/25 8:20 AM REGAN NOLAND OBGYWM During your visit today, we recorded the following information about you: Blood pressure Weight Height 108/68 68 kg 1.505 m Regan Noland MD 04/10/2025 9:13 AM Signed Social Insurance Adviser offered: Patient accepts, visit chaperoned by Jett Kirkpatrick LPN. Krista is a 69 year old who presents for an annual gynecologic exam without complaints and noting idiopathic cirrhosis of the liver/stage IV liver disease Postmenopausal: Yes HRT use: No. 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 History Comments: Sexual Activity: Not Currently; Male Contraception: Tubal Ligation PAST MEDICAL HISTORY Diagnosis Date Arthritis in Hands Cervical disc disease Diabetes (HCC) Gout Macular degeneration Other forms of migraine Personal history of colonic polyps Snoring does not use C-pap Thyroid disease PAST SURGICAL HISTORY Procedure Laterality Date ABDOMINAL SURGERY HX DELIVERY ONLY , low cervical COLONOSCOPY 07/11/2022 repeat in 5 years COLONOSCOPY FLX DX W/COLLJ SPEC WHEN PFRMD 01/09/2010 Colonoscopy COLONOSCOPY FLX DX W/COLLJ SPEC WHEN PFRMD 01/15/2011 COLONOSCOPY FLX DX W/COLLJ SPEC WHEN PFRMD 03/27/2016 Colonoscopy COLONOSCOPY FLX DX W/COLLJ SPEC WHEN PFRMD 06/08/2017 Colonoscopy DILATION AND CURETTAGE DXAND/THER NONOBSTETRIC Dilation AND curettage EGD W/O [facility] SPEC VARICIES INJ N/A 01/20/2023 [facility] EGD W/O [facility] SPEC VARICIES INJ N/A 04/08/2023 [facility] EGD W/O [facility] SPEC VARICIES INJ N/A 11/09/2024 [facility] ESOPHAGOGASTRODUODENOSCO PY TRANSORAL DIAGNOSTIC 01/2004 EGD ESOPHAGOGASTRODUODENOSCO PY TRANSORAL DIAGNOSTIC 03/29/2018 EGD FRACTURE SURGERY LIG/TRNSXJ FLP TUBE ABDL/VAG APPR UNI/BI PAST SURGICAL HISTORY OF Left 07/07/2022 Left foot surgery with plates and screws placed STEREOTACTIC CORE BIOPSY 07/13/2007 LEFT BREAST- benign TONSILLECTOMY HX TONSILLECTOMY PRIMARY/SECONDARY FAMILY HISTORY Problem Relation Age of Onset Diabetes Mother Hypertension Mother Hypertension Father Diabetes Father SOCIAL HISTORY Social History Tobacco Use Smoking status: Former Current packs/day: 0.00 Average packs/day: 0.3 packs/day for 3.0 years (0.8 ttl pk-yrs) Types: Cigarettes Start date: 06/08/1972 Quit date: 06/08/1975 Years since quittin.8 Smokeless tobacco: Never Vaping Use Vaping status: Never Used Substance Use Topics Alcohol use: Yes Comment: rare, once a year Drug use: No REVIEW OF SYSTEMS Abdomen: No abdominal pain, nausea, vomiting, diarrhea, or constipation. No bloating, early satiety, indigestion, or increased flatulence. Bladder: No dysuria, gross hematuria, urinary frequency, urinary urgency, or incontinence Breast: No breast lumps, nipple d/c, overlying skin changes, redness or skin retraction Allergies and current medication updated:Yes SENSITIVE EXAM: The sensitive examination was discussed with the Patient or Patient's Authorized News Camera Operator. As applicable, any other physician, advance practice provider, medical student, or other health professional student that will be observing or involved in the sensitive examination for educational or training purposes was discussed with the Patient or Authorized News Camera Operator. The Patient or Authorized News Camera Operator has agreed to proceed with the sensitive examination. (Sensitive examination includes inspection and/or palpation of the breasts, pelvis, prostate and anorectal regions). EXAM: BP 108/68 Ht 4' 11.252" (1.51m) Wt 150 lb (68.0kg) LMP 01/31/2005 BMI 30.04 kg/(m2). GENERAL: pleasant, female in no apparent distress HEENT: Normocephalic, atraumatic, mucus membranes moist, and no lesions NECK: Supple, full range of motion, no adenopathy, and thyroid normal DERMATOLOGY: Normal, without lesions, non-icteric, and non-hirsute BREAST: soft, non-tender, symmetric, no dominant mass, normal nipple-areolar complex, no lymphadenopathy, and no nipple discharge CHEST: Normal inspiratory effort ABDOMEN: soft, rebound Absent, and tender RUQ w fullnes PELVIC: external genitalia normal, normal Bartholin's glands, urethra, [place]'s glands, no vulvar lesions, no cervical lesions, good vaginal support, physiologic discharge prese (more content not included)... Normal [facility] Office Visiton 03-15-2025 Follow-up visit [id number] Gunjan Campbell 1955 F Date Provider Department Center 03/15/2025 [id number] [place]APA [facility] [place] None Family History Problem Relation Age of Onset Diabetes Mother Stroke Mother Heart attack Father Parkinsonism Father Family Status - Relation Status Age at Mother Father Level of Service:29103 RI OFFICE/OUTPATIENT ESTABLISHED LOW MDM 20 MIN Reason for Visit and Comments: Follow-up [339541] Headache [52] Normal [facility] Progress Noteon 03-15-2025 Progress Note [facility] [address] [facility] [address] [facility] [address] Dept: [phone] Dept Loc: [phone] Visit type: Established Patient Reason for Visit: Follow-up and Headache Assessment and Plan 1. Migraine with aura and without status migrainosus, not intractable - galcanezumab (Emgality) 120 MG/ML auto-injector; Inject 1 Syringe (120 mg) under the skin every 30 (thirty) days., Starting Thu03/15/2025, Until Thu04/14/2025, Normal 2. Primary insomnia - gabapentin (Neurontin) 400 MG capsule; TAKE 2-3 CAPS ABOUT 90 MIN PRIOR TO BEDTIME., Starting Thu03/15/2025, Until Thu06/13/2025 at 2359, Normal Subjective HPI: She reports that the Emgality is working well. She is down to 1 migraine. The rizatriptan works when she takes. She reports that she is sleeping better. She reports that gabapentin is working. She reports that her liver testing has been good of late. REVIEW OF SYSTEMS: Review of Systems Constitutional: Negative for appetite change, chills, diaphoresis, fever and unexpected weight change. HENT: Negative for dental problem and mouth sores. Eyes: Negative for discharge and itching. Respiratory: Negative for chest tightness. Cardiovascular: Negative for chest pain and leg swelling. Gastrointestinal: Negative for rectal pain and vomiting. Endocrine: Negative for polydipsia, polyphagia and polyuria. Genitourinary: Negative for decreased urine volume, flank pain and genital sores. Musculoskeletal: Negative for arthralgias. Skin: Negative for color change. Allergic/Immunologic: Negative for food allergies and immunocompromised state. Neurological: Positive for headaches. Hematological: Negative for adenopathy. Does not bruise/bleed easily. Psychiatric/Behavioral: Positive for sleep disturbance. Negative for agitation, behavioral problems, decreased concentration and suicidal ideas. Allergies Allergen Reactions Ciprofloxacin Metronidazole Penicillins Statins Other reaction(s): Other (See Comments) Sulfa Antibiotics Current Outpatient Medications: allopurinol (Zyloprim) 100 MG tablet, Take 100 mg by mouth daily., Disp: , Rfl: Apple Cider Vinegar 300 MG tablet, Take by mouth., Disp: , Rfl: Black Elderberry (SAMBUCUS ELDERBERRY PO), Take by mouth., Disp: , Rfl: co-enzyme Q-10 30 MG capsule, Take 30 mg by mouth daily., Disp: , Rfl: Cranberry 500 MG capsule, Take by mouth., Disp: , Rfl: cycloSPORINE (Restasis MultiDose) 0.05 % ophthalmic emulsion, 1 drop 2 times daily., Disp: , Rfl: dulaglutide (Trulicity) 3 MG/0.5ML solution pen-injector, Inject 3 mg under the skin once a week., Disp: , Rfl: erythromycin (Romycin) 5 MG/GM ophthalmic ointment, Apply to affected eye(s)., Disp: , Rfl: fluorometholone (FML) 0.1 % ophthalmic suspension, INSTILL 1 DROP INTO EACH EYE TWICE DAILY, Disp: , Rfl: glimepiride (Amaryl) 4 MG tablet, TAKE 2 TABLETS BY MOUTH ONCE DAILY WITH BREAKFAST, Disp: , Rfl: Lactobacillus (ACIDOPHILUS/BIFIDUS PO), Take by mouth., Disp: , Rfl: LACTULOSE PO, Take by mouth., Disp: , Rfl: levothyroxine (Synthroid, Levoxyl) 75 MCG tablet, Take 75 mcg by mouth in the morning., Disp: , Rfl: magnesium 250 MG tablet, Take by mouth., Disp: , Rfl: metFORMIN (Glucophage) 1000 MG tablet, Take 1 tablet by mouth in the morning and 1 tablet in the evening. Take with meals., Disp: , Rfl: Multiple Vitamins-Minerals (HAIR SKIN AND NAILS FORMULA PO), Take by mouth., Disp: , Rfl: Multiple Vitamins-Minerals (Multivitamin Adult) chewable tablet, Chew., Disp: , Rfl: pantoprazole (ProtoNix) 40 MG EC tablet, Take 40 mg by mouth daily., Disp: , Rfl: SM Fexofenadine HCl 180 MG tablet, Take 180 mg by mouth daily., Disp: , Rfl: spironolactone (Aldactone) 25 MG tablet, Take 25 mg by mouth Once. Take 1/2 tab daily, Disp: , Rfl: Xifaxan 550 MG tablet, Take 550 mg by mouth 2 times daily., Disp: , Rfl: gabapentin (Neurontin) 400 MG capsule, TAKE 2-3 CAPS ABOUT 90 MIN PRIOR TO BEDTIME., Disp: 270 capsule, Rfl: 3 galcanezumab (Emgality) 120 MG/ML auto-injector, Inject 1 Syringe (120 mg) under the skin every 30 (thirty) days., Disp: 1 each, Rfl: 11 rizatriptan INSPECTOR AND HAND PACKAGER (Maxalt-INSPECTOR AND HAND PACKAGER) 10 MG disintegrating tablet, Take 1 tablet (10 mg) by mouth Once as needed for migraine. May repeat in 2 hours if unresolved. Do not exceed 20 mg in 24 hours., Disp: 9 tablet, Rfl: 11 Past Medical History: Diagnosis Date Diabetes mellitus (HCC) Headache Migraine Age 19 Social History Tobacco Use Smoking status: Former Current packs/day: 0.00 Average packs/day: 0.3 packs/day for 4.0 years (1.0 ttl pk-yrs) Types: Cigarettes Start date: 10/19/1969 Quit date: 10/19/1973 Years since quittin.4 Smokeless tobacco: Never Tobacco comments: Smoked when I was younger Substance Use Topics Alcohol use: Not Currently Comment: Icasionally Past Surgical History: Procedure Laterality Date ADDY (more content not included)... [facility] 03-10-2025 CNOV Office Visit (FAMPWS ) -------- KRISTA CAMPBELL ([id number]) 1955 F Date Time Provider Department 03/10/25 8:40 AM TATY JULIAN During your visit today, we recorded the following information about you: Pulse Respiration Blood pressure Weight 74/minute 16/minute 118/70 69.7 kg Taty Julian MD 03/10/2025 8:57 AM Signed Chief Complaint Patient presents with: F/U 3 Month HPI Krista Campbell is a 69 year old female who presents here today for a 3 month follow up. Follows with Gastro Dr. Yen and Dr. Curtis for cirrhosis. Dyshpagia, and esophageal varices. Had EGD done on 02/27/25, has procedure every 3 months. GERD sx controlled with Protonix 40 mg 1 pill BID. Is taking Lactulose 10 g TID for cirrhosis. Started on Aldactone 25 mg, 1 pill daily and Xifaxan 550 mg 1 pill BID. No longer following with a CLINICAL SOCIAL WORKER for pelvic exams. Getting her Mammogram through [facility]. DM: Checking her sugars once daily with FBS ranging from 150-200. Denies any hypoglycemic episodes. 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 Follows with Eye Doctor, recent visit on 03/02/25. On current regimen of Metformin 1,000 mg 1 pill BID and Trulicity 4.5 mg weekly. Amaryl was d/c last visit due to low bs. Since going off medication has not had any further lows, but due to sugars being higher Trulicity was increased from 3 mg to 4.5 mg weekly. Lipid: Taking Zetia 10 mg daily. Tries to watch diet, portion sizes, eat more salads, vegetables, and limiting meat and sugar intake. Some activity. Anemia: Hx of transfusions, taking Iron every other day. Follows with GI for cirrhosis and varices. Recent EGD done on 02/27/25. Thyroid: Feels she's stable on current regimen of Levothyroxine 75 mcg once daily. Denies any missed dosages. Her liver doctor Dr. Gm changed dose from 88 mcg to 75 mcg daily due to low TSH in 12/13. Gout: No recent flare ups. Stable with Allopurinol 300 mg daily[address] Dr. Kulkarni, Podiatry with [facility]. Migraines : Doing well on her current regimen of Gabapentin 400 mg 2 pills at bedtime, Emgality injections every month and Maxalt prn. Follows with Dr. Thapa, Neuro. Follows with Maria Esther Singh, had skin cancer removed from neck. Past medical history, appointments, medications, allergies reviewed. Previous Medical History PAST MEDICAL HISTORY Diagnosis Date Arthritis in Hands Cervical disc disease Diabetes (HCC) Gout Macular degeneration Other forms of migraine Personal history of colonic polyps Snoring does not use C-pap Thyroid disease Previous Surgical History PAST SURGICAL HISTORY Procedure Laterality Date ABDOMINAL SURGERY HX DELIVERY ONLY , low cervical COLONOSCOPY 07/11/2022 repeat in 5 years COLONOSCOPY FLX DX W/COLLJ SPEC WHEN PFRMD 01/09/2010 Colonoscopy COLONOSCOPY FLX DX W/COLLJ SPEC WHEN PFRMD 01/15/2011 COLONOSCOPY FLX DX W/COLLJ SPEC WHEN PFRMD 03/27/2016 Colonoscopy COLONOSCOPY FLX DX W/COLLJ SPEC WHEN PFRMD 06/08/2017 Colonoscopy DILATION AND CURETTAGE DXAND/THER NONOBSTETRIC Dilation AND curettage EGD W/O [facility] SPEC VARICIES INJ N/A 01/20/2023 [facility] EGD W/O [facility] SPEC VARICIES INJ N/A 04/08/2023 [facility] EGD W/O [facility] SPEC VARICIES INJ N/A 11/09/2024 [facility] ESOPHAGOGASTRODUODENOSCO PY TRANSORAL DIAGNOSTIC 01/2004 EGD ESOPHAGOGASTRODUODENOSCO PY TRANSORAL DIAGNOSTIC 03/29/2018 EGD FRACTURE SURGERY LIG/TRNSXJ FLP TUBE ABDL/VAG APPR UNI/BI PAST SURGICAL HISTORY OF Left 07/07/2022 Left foot surgery with plates and screws placed STEREOTACTIC CORE BIOPSY 07/13/2007 LEFT BREAST- benign TONSILLECTOMY HX TONSILLECTOMY PRIMARY/SECONDARY Family History FAMILY HISTORY Problem Relation Age of Onset Diabetes Mother Hypertension Mother Hypertension Father Diabetes Father Patient Allergies ALLERGIES Allergen Reactions Ezfjzgw-Pua-Yeg Red* Myalgia Knees shake, weak and joints ache Cipro [Ciprofloxaci* Hives Metronidazole Hives Penicillins Rash Age 19 -- rash all over, hives Sulfa (Sulfonamide * Rash Current Medications Current Outpatient Medications on File Prior to Visit Medication Sig ferrous sulfate 325 mg (65 mg iron) tablet Take 1 tablet by mouth every other day. carvedilol (COREG) 6.25 mg tablet Take 1 tablet by mouth two times a day with meals. pantoprazole DR (PROTONIX) 40 mg tablet Take 1 tablet by mouth two times a day. ezetimibe (ZETIA) 10 mg tablet Take 1 tablet by mouth once daily. metFORMIN (GLUCOPHAGE) 1,000 mg tablet Take 1 tablet by mouth two times a day with meals. dulaglutide (TRULICITY) 4.5 mg/0.5 mL pen injector Inject 4.5 mg subcutaneously one time a week. levothyroxine (SYNTHROID) 88 mcg tablet Take 1 tablet by mouth once daily. Take on empty stomach. rifAXIMin (XIFAXAN) 550 mg tablet Take 550 mg by mouth two times a day. spiron (more content not included)... Normal [facility] ALBUMIN/CREATININE RATIO, UR INEon 03-02-2025 Albumin DL <= 20 mg/L (U) [Mass/Vol] mg/dL Normal [facility] Comment on above: Order Comment: Speci men Type: URINE SPECIMENOrdering Facility: [facility] Address: [address] [place] [address] Performed By: #### U ACR ####[facility] LABCLIA [id number] [place] [address] [place] Albumin/Creatinine (U) [Mass ratio] <27 Normal <30 [facility] Comment on above: Order Comment: Speci men Type: URINE SPECIMENOrdering Facility: [facility] Address: [address] [place] [address] Result Comment: Adul t Male and Female Nephrotic Criteria: <30 mg/g is considered normal to mildly increased 30-300 mg/g is considered moderately increased >300 mg/g is considered severely increased KDIGO. (2013). KDIGO 2012 Clinical Practice Guideline for the Evaluation and Management of Chronic Kidney Disease. Official Journal of the International Society of Nephrology, 3(1), 1-150. Performed By: #### U ACR ####[facility] LABCLIA [id number] [place] [address] [place] Creatinine (U) [Mass/Vol] 43.9 mg/dL Normal 20.0-300.0 [facility] Comment on above: Order Comment: Speci men Type: URINE SPECIMENOrdering Facility: [facility] Address: [address] [place] [address] Performed By: #### U ACR ####[facility] LABCLIA [id number] [place] [address] [place] CBC W Auto Differential pane l (Bld)on 03-02-2025 Basophils (Bld) [#/Vol] 0.05 10*3/uL Normal <0.11 [facility] Comment on above: Order Comment: Speci men Type: BLOOD SPECIMENOrdering Facility: [facility] Address: [address] [place] [address] Performed By: #### 5 7021-8 ####[facility] LABCLIA [id number] [place] [address] [place] Basophils/100 WBC (Bld) 1.3 % Normal [facility] Comment on above: Order Comment: Speci men Type: BLOOD SPECIMENOrdering Facility: [facility] Address: [address] [place] [address] Performed By: #### 5 7021-8 ####[facility] LABCLIA [id number] [address] [place] Differential cell count method Nom (Bld) Auto Normal [facility] Comment on above: Order Comment: Speci men Type: BLOOD SPECIMENOrdering Facility: [facility] Address: [address] [place] [address] Performed By: #### 5 7021-8 ####[facility] LABCLIA [id number] [place] [address] [place] Eosinophils (Bld) [#/Vol] 0.25 10*3/uL Normal <0.46 [facility] Comment on above: Order Comment: Speci men Type: BLOOD SPECIMENOrdering Facility: [facility] Address: [address] [place] [address] Performed By: #### 5 7021-8 ####[facility] LABCLIA [id number] [facility] [place] [address] [place] Eosinophils/100 WBC (Bld) 6.5 % Normal [facility] Comment on above: Order Comment: Speci men Type: BLOOD SPECIMENOrdering Facility: [facility] Address: [address] [place] [address] Performed By: #### 5 7021-8 ####[facility] LABCLIA [id number] [address], [place] [address] [place] Erythrocyte distribution width (RBC) [Ratio] 16.5 % High 11.5-15.0 [facility] Comment on above: Order Comment: Speci men Type: BLOOD SPECIMENOrdering Facility: [facility] Address: [address] [place] [address] Performed By: #### 5 7021-8 ####[facility]CLIA [id number] [place] [address] [place] Hematocrit (Bld) [Volume fraction] 31.4 % Low 36.0-46.0 [facility] Comment on above: Order Comment: Speci men Type: BLOOD SPECIMENOrdering Facility: [facility] Address: [address] [place] [address] Performed By: #### 5 7021-8 ####[facility] LABCLIA [id number] [place] [address] [place] Hemoglobin (Bld) [Mass/Vol] 9.0 g/dL Low 11.5-15.5 [facility] Comment on above: Order Comment: Speci men Type: BLOOD SPECIMENOrdering Facility: [facility] Address: [address] [place] [address] Performed By: #### 5 7021-8 ####[facility] LABCLIA [id number] [place] [address] [place] Immature granulocytes (Bld) [#/Vol] 0.03 10*3/uL Normal <0.10 [facility] Comment on above: Order Comment: Speci men Type: BLOOD SPECIMENOrdering Facility: [facility] Address: [address] [place] [address] Performed By: #### 5 7021-8 ####[facility]CLIA [id number] [address] [place] Immature granulocytes/100 WBC (Bld) 0.8 % Normal [facility] Comment on above: Order Comment: Speci men Type: BLOOD SPECIMENOrdering Facility: [facility] Address: [address] [place] [address] Performed By: #### 5 7021-8 ####[facility] LABCLIA [id number] [place] [address] [place] Lymphocytes (Bld) [#/Vol] 0.95 10*3/uL Low 1.00-4.00 [facility] Comment on above: Order Comment: Speci men Type: BLOOD SPECIMENOrdering Facility: [facility] Address: [address] [place] [address] Performed By: #### 5 7021-8 ####[facility] LABCLIA [id number] [place] [address] [place] Lymphocytes/100 WBC (Bld) 24.7 % Normal [facility] Comment on above: Order Comment: Speci men Type: BLOOD SPECIMENOrdering Facility: [facility] Address: [address] [place] [address] Performed By: #### 5 7021-8 ####[facility] LABCLIA [id number] [place] [address] [place] MCH (RBC) [Entitic mass] 25.4 pg Low 26.0-34.0 [facility] Comment on above: Order Comment: Speci men Type: BLOOD SPECIMENOrdering Facility: [facility] Address: [address] [place] [address] Performed By: #### 5 7021-8 ####[facility] LABCLIA [id number] [place] [address] [place] MCHC (RBC) [Mass/Vol] 28.7 g/dL Low 30.5-36.0 [facility] Comment on above: Order Comment: Speci men Type: BLOOD SPECIMENOrdering Facility: [facility] Address: [address] [place] [address] Performed By: #### 5 7021-8 ####[facility] LABCLIA [id number] [place] [address] [place] MCV (RBC) [Entitic vol] 88.7 fL Normal 80.0-100.0 C [facility] Comment on above: Order Comment: Speci men Type: BLOOD SPECIMENOrdering Facility: [facility] Address: [address] [place] [address] Performed By: #### 5 7021-8 ####[facility] LABCLIA [id number] [place] [address] [place] Monocytes (Bld) [#/Vol] 0.29 10*3/uL Normal <0.87 [facility] Comment on above: Order Comment: Speci men Type: BLOOD SPECIMENOrdering Facility: [facility] Address: [address] [place] [address] Performed By: #### 5 7021-8 ####[facility]CL[facility] [id number] [address] [place] Monocytes/100 WBC (Bld) 7.5 % Normal C [facility] Comment on above: Order Comment: Speci men Type: BLOOD SPECIMENOrdering Facility: [facility] Address: [address] [place] [address] Performed By: #### 5 7021-8 ####[facility] LABCLIA [id number] [place] [address] [place] Neutrophils (Bld) [#/Vol] 2.28 10*3/uL Normal 1.45-7.50 [facility] Comment on above: Order Comment: Speci men Type: BLOOD SPECIMENOrdering Facility: [facility] Address: [address] [place] [address] Performed By: #### 5 7021-8 ####[facility] LABCLIA [id number] [place] [address] [place] Neutrophils/100 WBC (Bld) 59.2 % Normal [facility] Comment on above: Order Comment: Speci men Type: BLOOD SPECIMENOrdering Facility: [facility] Address: [address] [place] [address] Performed By: #### 5 7021-8 ####[facility] LABCLIA [id number] [place] [address] [place] Nucleated RBC (Bld) [#/Vol] 10*3/uL Normal <0.01 [facility] Comment on above: Order Comment: Speci men Type: BLOOD SPECIMENOrdering Facility: [facility] Address: [address] [place] [address] Performed By: #### 5 7021-8 ####[facility] LABCLIA [id number] [place] [address] [place] Nucleated RBC/100 WBC (Bld) [Ratio] 0.0 /100 WBC Normal [facility] Comment on above: Order Comment: Speci men Type: BLOOD SPECIMENOrdering Facility: [facility] Address: [address] [place] [address] Performed By: #### 5 7021-8 ####[facility]CLIA [id number] [place] [address] [place] Platelet mean volume (Bld) [Entitic vol] 12.6 fL Normal 9.0-12.7 [facility] Comment on above: Order Comment: Speci men Type: BLOOD SPECIMENOrdering Facility: [facility] Address: [address] [place] [address] Performed By: #### 5 7021-8 ####[facility] LABIA [id number] [place] [address] [place] Platelets (Bld) [#/Vol] 71 10*3/uL Low 150-400 C [facility] Comment on above: Order Comment: Speci men Type: BLOOD SPECIMENOrdering Facility: [facility] Address: [address] [place] [address] Result Comment: No c lot detected. Performed By: #### 5 7021-8 ####[facility] LABIA [id number] [place] [address] [place] RBC (Bld) [#/Vol] 3.54 10*6/uL Low 3.90-5.20 [facility] Comment on above: Order Comment: Speci men Type: BLOOD SPECIMENOrdering Facility: [facility] Address: [address] [place] [address] Performed By: #### 5 7021-8 ####[facility] LABIA [id number] [place] [address] [place] WBC (Bld) [#/Vol] 3.85 10*3/uL Normal 3.70-11.00 [facility] Comment on above: Order Comment: Speci men Type: BLOOD SPECIMENOrdering Facility: [facility] Address: [address] [place] [address] Performed By: #### 5 7021-8 ####[facility] LABCLIA [id number] [place] [address] [place] Comprehensive metabolic 2000 panelon 03-02-2025 Albumin [Mass/Vol] 4.2 g/dL Normal 3.9-4.9 [facility] Comment on above: Order Comment: Speci men Type: BLOOD SPECIMENOrdering Facility: [facility] Address: [address] [place] [address] Performed By: #### 3 016-3, 26932-3, 94053-6, 3084-1 ####[facility] LABCLIA [id number] [place] [address] [place] ALP [Catalytic activity/Vol] 88 U/L Normal 34-123 [facility] Comment on above: Order Comment: Speci men Type: BLOOD SPECIMENOrdering Facility: [facility] Address: [address] [place] [address] Performed By: #### 3 016-3, 55517-6, 56603-7, 3084-1 ####[facility] LABCLIA [id number] [place] [address] [place] ALT [Catalytic activity/Vol] 18 U/L Normal 7-38 [facility] Comment on above: Order Comment: Speci men Type: BLOOD SPECIMENOrdering Facility: [facility] Address: [address] [place] [address] Performed By: #### 3 016-3, 81445-8, 17782-9, 3084-1 ####[facility] LABCLIA [id number] [place] [address] [place] Anion gap [Moles/Vol] 12 mmol/L Normal 8-15 [facility] Comment on above: Order Comment: Speci men Type: BLOOD SPECIMENOrdering Facility: [facility] Address: [address] [place] [address] Performed By: #### 3 016-3, 70132-6, 73378-3, 3084-1 ####[facility] LABCLIA [id number] [facility] [address], [facility] [place] AST [Catalytic activity/Vol] 27 U/L Normal 13-35 [facility] Comment on above: Order Comment: Speci men Type: BLOOD SPECIMENOrdering Facility: [facility] Address: [address] [place] [address] Performed By: #### 3 016-3, 68237-4, 19608-5, 3084-1 ####[facility]CLIA [id number] [place] [address] [place] Bilirubin [Mass/Vol] 0.3 mg/dL Normal 0.2-1.3 [facility] Comment on above: Order Comment: Speci men Type: BLOOD SPECIMENOrdering Facility: [facility] Address: [address] [place] [address] Performed By: #### 3 016-3, 05971-0, 64395-0, 3084-1 ####[facility]CLIA [id number] [place] [address] [place] Calcium [Mass/Vol] 9.6 mg/dL Normal 8.5-10.2 [facility] Comment on above: Order Comment: Speci men Type: BLOOD SPECIMENOrdering Facility: [facility] Address: [address] [place] [address] Performed By: #### 3 016-3, 57886-0, 85180-7, 3084-1 ####[facility]CLIA [id number] [place] [address] [place] Chloride [Moles/Vol] 102 mmol/L Normal 98-107 [facility] Comment on above: Order Comment: Speci men Type: BLOOD SPECIMENOrdering Facility: [facility] Address: [address] [place] [address] Performed By: #### 3 016-3, 16024-8, 09479-9, 3084-1 ####[facility] LABCLIA [id number] [place] [id number] [place] CO2 [Moles/Vol] 26 mmol/L Normal 22-30 [facility] Comment on above: Order Comment: Speci men Type: BLOOD SPECIMENOrdering Facility: [facility] Address: [address] [place] [address] Performed By: #### 3 016-3, 96479-4, 53347-8, 3083- ####[facility]CLIA [id number] [place] [address] [place] Creatinine [Mass/Vol] 0.51 mg/dL Low 0.58-0.96 [facility] Comment on above: Order Comment: Speci men Type: BLOOD SPECIMENOrdering Facility: [facility] Address: [address] [place] [address] Performed By: #### 3 016-3, 51451-1, 71639-3, 3083-10 ####[facility] LABIA [id number] [place] [address] [place] Creatinine and Glomerular filtration rate.predicted panel (S/P/Bld) 101 mL/min/1.73m??? Normal >=60 [facility] Comment on above: Order Comment: Speci men Type: BLOOD SPECIMENOrdering Facility: [facility] Address: [address] [place] [address] Result Comment: Lizbeth mated Glomerular Filtration Rate (eGFR) is calculated using the 2020 CKD-EPI creatinine equation. This equation utilizes serum creatinine, sex, and age as parameters. The creatinine assay has traceable calibration to isotope dilution-mass spectrometry. Refer to KDIGO guidelines for clinical interpretation. In patients with unstable renal function, e.g. those with acute kidney injury, the eGFR may not accurately reflect actual GFR. Performed By: #### 3 016-3, 85129-0, 97295-4, 3083-10 ####[facility] LABCLIA [id number] [address] [address] [place] Glucose [Mass/Vol] 176 mg/dL High 74-99 [facility] Comment on above: Order Comment: Speci men Type: BLOOD SPECIMENOrdering Facility: [facility] Address: [address] [place] [address] Result Comment: The [place] Diabetes Association (ADA) provides guidance for cutoff values for fasting glucose and random glucose. The ADA defines fasting as no caloric intake for at least 8 hours. Fasting plasma glucose results between 100 to 125 mg/dL indicate increased risk for diabetes (prediabetes). Fasting plasma glucose results greater than or equal to 126 mg/dL meet the criteria for diagnosis of diabetes. In the absence of unequivocal hyperglycemia, results should be confirmed by repeat testing. In a patient with classic symptoms of hyperglycemia or hyperglycemic crisis, random plasma glucose results greater than or equal to 200 mg/dL meet the criteria for diagnosis of diabetes. Reference: Standards of Medical Care in Diabetes 2016, [place] Diabetes Association. Diabetes Care. 2016.39(Suppl 1). Performed By: #### 3 016-3, 34430-9, 60287-5, 3084-1 ####[facility] LABCLIA [id number] [place] [address] [place] Potassium [Moles/Vol] 4.6 mmol/L Normal 3.7-5.1 [facility] Comment on above: Order Comment: Speci men Type: BLOOD SPECIMENOrdering Facility: [facility] Address: [address] [place] [address] Performed By: #### 3 016-3, 97748-7, 02792-8, 3084-1 ####[facility] LABIA [id number] [place] [id number] [place] Protein [Mass/Vol] 6.9 g/dL Normal 6.3-8.0 [facility] Comment on above: Order Comment: Speci men Type: BLOOD SPECIMENOrdering Facility: [facility] Address: [address] [place] [address] Performed By: #### 3 016-3, 64974-2, 91023-9, 3084-1 ####[facility] LABIA [id number] [place] [id number] [place] Sodium [Moles/Vol] 140 mmol/L Normal 136-144 [facility] Comment on above: Order Comment: Nehemiahi men Type: BLOOD SPECIMENOrdering Facility: [facility] Address: [address] [place] [address] Performed By: #### 3 016-3, 61268-4, 59546-4, 3084-1 ####[facility] LABCLIA [id number] [place] [address] [place] Urea nitrogen [Mass/Vol] 11 mg/dL Normal 7-21 [facility] Comment on above: Order Comment: Nehemia[place] men Type: BLOOD SPECIMENOrdering Facility: [facility] Address: [address] [place] [address] Performed By: #### 3 016-3, 42445-9, 89426-9, 3084-1 ####[facility] LABIA [id number] [place] [address] [place] HbA1c (Bld)on 03-02-2025 Average glucose Estimated from glycated hemoglobin (Bld) [Mass/Vol] 128 mg/dL Normal [facility] Comment on above: Order Comment: Judy webb Type: BLOOD SPECIMENOrdering Facility: [facility] Address: [address] [place] [address] Result Comment: eAG: (Estimated average glucose) is a calculated value from HgbA1c and is customer relations representative of the average blood glucose level in the last 2-3 month period. Performed By: #### 5 5454-3 ####[facility] LABCLIA [id number] [place] [address] [place] HbA1c (Bld) [Mass fraction] 6.1 % High 4.3-5.6 [facility] Comment on above: Order Comment: Judy jon Type: BLOOD SPECIMENOrdering Facility: [facility] Address: [address] [place] [address] Result Comment: [place] Diabetes Association guidelines indicate that patients with HgbA1c in the range 5.7-6.4% are at increased risk for development of diabetes, and intervention by lifestyle modification may be beneficial. HgbA1c greater or equal to 6.5% is considered diagnostic of diabetes. Performed By: #### 5 5454-3 ####[facility] LABCLIA [id number] [place] [address] [place] Lipid 1996 panelon 5 Cholesterol [Mass/Vol] 144 mg/dL Normal <200 [facility] Comment on above: Order Comment: Speci men Type: BLOOD SPECIMENOrdering Facility: [facility] Address: [address] [place] [address] Result Comment: <200 mg/dL, Desirable 200-239 mg/dL, Borderline high >239 mg/dL, High Performed By: #### 3 016-3, 09795-6, 87618-2, 3084-1 ####[facility] LABCLIA [id number] [address] [place] Cholesterol in HDL [Mass/Vol] 39 mg/dL Low >39 [facility] Comment on above: Order Comment: Speci men Type: BLOOD SPECIMENOrdering Facility: [facility] Address: [address] [place] [address] Result Comment: 40-5 9 mg/dL, Acceptable >59 mg/dL, High: Negative risk factor for coronary heart disease <40 mg/dL, Low: Positive risk factor for coronary heart disease Performed By: #### 3 016-3, 96790-0, 72259-3, 3084-1 ####[facility] LABIA [id number] [place] [id number] [facility] Cholesterol in LDL [Mass/Vol] 82 mg/dL Normal <100 [facility] Comment on above: Order Comment: Speci men Type: BLOOD SPECIMENOrdering Facility: [facility] Address: [address] [place] [address] Result Comment: <100 mg/dL, Optimal 100-129 mg/dL, Near optimal/above optimal 130-159 mg/dL, Borderline high 160-189 mg/dL, High >189 mg/dL, Very high Secondary prevention optimal LDL Cholesterol levels are recommended to be <70 mg/dL LDL cholesterol is calculated using the Siegel-NIH equation. Performed By: #### 3 016-3, 99229-1, 16978-1, 3084-1 ####[facility] [id number] [address] [place] [address] [place] Cholesterol in LDL/Cholesterol in HDL [Mass ratio] 2.10 {ratio} Normal <2.54 [facility] Comment on above: Order Comment: Speci men Type: BLOOD SPECIMENOrdering Facility: [facility] Address: [address] [place] [address] Result Comment: Juan barros: 1. National Cholesterol Education Program ATP III Guideline At-A-Glance Quick Desk Reference: National Heart, Lung, and Blood [place]. National Institutes of Health. 2001: NIH Publication No. 01-3305. 2. An International Atherosclerosis Society position paper: global recommendations for the management of dyslipidemia: executive summary, Atherosclerosis. 2014: 232(2):410-413. Performed By: #### 3 016-3, 38238-4, 62557-0, 4- ####[facility] [id number] [address] [address] [place] Cholesterol in VLDL [Mass/Vol] 20 mg/dL Normal <30 [facility] Comment on above: Order Comment: Speci men Type: BLOOD SPECIMENOrdering Facility: [facility] Address: [address] [place] [address] Performed By: #### 3 016-3, 55841-5, 83135-2, 4- ####[facility] [id number] [facility] [address] [address] [place] Cholesterol non HDL [Mass/Vol] 105 mg/dL Normal <130 [facility] Comment on above: Order Comment: Speci men Type: BLOOD SPECIMENOrdering Facility: [facility] Address: [address] [place] [address] Result Comment: <130 mg/dL, Optimal 130-159 mg/dL, Near optimal/above optimal 160-189 mg/dL, Borderline high 190-219 mg/dL, High >219 mg/dL, Very high Secondary prevention optimal non HDL Cholesterol levels are recommended to be <100 mg/dL Performed By: #### 3 016-3, 15609-1, 26291-4, 3083- ####[facility]CL[facility] [id number] [facility] [address] [place] [address] [facility] Cholesterol.total/Kristi sterol in HDL [Mass ratio] 3.69 {ratio} Normal <5.10 [facility] Comment on above: Order Comment: Speci men Type: BLOOD SPECIMENOrdering Facility: [facility] Address: [address] [place] [address] Performed By: #### 3 016-3, 46911-6, , 3083-10 ####[facility] [id number] [address], [facility] FASTING TIME 12 hrs Normal [facility] Comment on above: Order Comment: Speci men Type: BLOOD SPECIMENOrdering Facility: [facility] Address: [address] [place] [address] Performed By: #### 3 016-3, 97808-0, , 3083-10 ####[facility] [id number] [facility] [address] [address] [place] [facility] Triglyceride [Mass/Vol] 128 mg/dL Normal <150 [facility] Comment on above: Order Comment: Speci men Type: BLOOD SPECIMENOrdering Facility: [facility] Address: [address] [id number] Result Comment: <150 mg/dL, Normal 150-199 mg/dL, Borderline high 200-499 mg/dL, High >499 mg/dL, Very high Performed By: #### 3 016-3, 58011-0, 38007-8, 3083- ####[facility] [id number] [facility] [address] [address] [place] TSH SerPl-aCncon 03-02-2025 TSH Qn 0.994 m[IU]/L Normal 0.270-4.200 [facility] Comment on above: Order Comment: Speci men Type: BLOOD SPECIMENOrdering Facility: [facility] Address: [address] [place], [place] [address] Performed By: #### 3 016-3, 82232-2, 53769-9, 3084-1 ####[facility] [id number] [place] [id number] [facility] [place] Urate SerPl-mCncon Urate [Mass/Vol] 5.3 mg/dL Normal 2.5-6.6 [facility] Comment on above: Order Comment: Speci men Type: BLOOD SPECIMENOrdering Facility: [facility] Address: [address] [place], [place] [address] Performed By: #### 3 016-3, 83157-0, 76921-5, 3084-1 ####[facility] [id number] [place] [id number] [place] Bedside Glucoseon 02-27-2025 FINGERSTICK GLU 179 mg/dL High 74-106 [facility] Comment on above: Result Comment: JENNIFER GEMENT OF PATIENT CARE PER NURSING PROTOCOL Performed By: #### L 501.080 ####[facility] [address] [place], [address] EGD Reporton 02-27-2025 EGD Report [facility] Medical Records Department [address] [place] [address] EGD Report MR#: [id number] Acct: [id number] Name: KRISTA CAMPBELL Rep #: [id number] : 1955 69 From: Toño Curtis DO PCP: Dr. Taty Julian MD Status:[facility] Patient Name: Krista Campbell Procedure Date: 02/27/2025 6:35 AM Date of : 1955 Age: 69 Procedure: Upper GI endoscopy Indications: For therapy of esophageal varices Providers: DO Cheri Sue MD: Taty Julian Medicines: Monitored Anesthesia Care Patient Profile: This is a 69 year old female. Refer to note in patient chart for documentation of history and physical. Patient has symptoms of dysphagia with solids. Complications: No immediate complications. Procedure: Pre-Anesthesia Assessment: - Prior to the procedure, a History and Physical was performed, and patient medications and allergies were reviewed. The patient is competent. The risks and benefits of the procedure and the sedation options and risks were discussed with the patient. All questions were answered and informed consent was obtained. Patient identification and proposed procedure were verified by the physician in the pre-procedure area. Mental Status Examination: alert and oriented. Airway Examination: normal oropharyngeal airway and neck mobility. Respiratory Examination: clear to auscultation. CV Examination: normal. Prophylactic Antibiotics: The patient does not require prophylactic antibiotics. Prior Anticoagulants: The patient has taken no anticoagulant or antiplatelet agents. ASA Grade Assessment: III - A patient with severe systemic disease. After reviewing the risks and benefits, the patient was deemed in satisfactory condition to undergo the procedure. The anesthesia plan was to use monitored anesthesia care (MAC). Immediately prior to administration of medications, the patient was re-assessed for adequacy to receive sedatives. The heart rate, respiratory rate, oxygen saturations, blood pressure, adequacy of pulmonary ventilation, and response to care were monitored throughout the procedure. The physical status of the patient was re-assessed after the procedure. After obtaining informed consent, the endoscope was passed under direct vision. Throughout the procedure, the patient's blood pressure, pulse, and oxygen saturations were monitored continuously. The Endoscope was introduced through the mouth, and advanced to the second part of duodenum. The upper GI endoscopy was accomplished without difficulty. The patient tolerated the procedure well. Scope In: 6:51:54 AM Scope Out: 6:58:45 AM Total Procedure Duration Time 0 hours 6 minutes 51 seconds Findings: Grade III varices were found in the middle third of the esophagus and in the lower third of the esophagus. They were 15 mm in largest diameter. Two bands were successfully placed with incomplete eradication of varices. There was no bleeding during and at the end of the procedure. Mild portal hypertensive gastropathy was found in the entire examined stomach. No gross lesions were noted in the entire examined duodenum. Impression: - Grade III esophageal varices. Incompletely eradicated. Banded. - Portal hypertensive gastropathy. - No gross lesions in the entire examined duodenum. - No specimens collected. Recommendation: - Discharge patient to home. - Resume previous diet. - Continue present medications. Procedure Code(s): --- Professional --- 94928, Esophagogastroduodenosco py, flexible, transoral; with band ligation of esophageal/gastric varices CPT copyright 2021 [employer]. All rights reserved. The codes documented in this report are preliminary and upon financial advisor review may be revised to meet current compliance requirements. Toño Curtis DO 02/27/2025 7:03:39 AM This report has been signed electronically. Number of Addenda: 0 Note Initiated On: 02/27/2025 6:35 AM 02/27/25 0704 Date Toño Curtis DO Cosigner Signature: Date (if indicated) CC: Dr. Taty Julian MD; Toño Curtis DO Date Dictated: 02/27/2535 Date Transcribed: 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: DEVAN Signed Normal [facility] Glucose measurement at [facility] deOrdered By: Toño Curtis on 02-27-2025 Glucose [Mass/Vol] 179 mg/dL High 74-106 [facility] Comment on above: MANAGEMENT OF PATIEN T CARE PER NURSING PROTOCOL MR/POSTOP.Toni 02-27-2025 MR/POSTOP.[facility] Medical Records Department [address] [place] [address] Anesthesia Postop Eval I 02/27/25711 MR#: [id number] Acct: [id number] Name: KRISTA CAMPBELL Rep #: [id number] : 1955 69 From: Eder Mcrae PCP: Dr. Taty Julian MD Status:[facility] Y Race: C Location: [address] Anesthesia: Postop Eval I Current Vital Signs Temperature: 97.9 F Pulse Rate: 81 Blood Pressure: 104/69 Respiratory Rate: 16 Pulse Ox: 95 Oxygen Delivery Method: Room Air Assessment Airway patent: Yes Spontaneous unlabored respirations: Yes Mental status: Asleep nausea: No Vomiting: No Anesthesia Complication: No Fluid Hydration Crystalloid volume administer (ml): 300 Total IV fluid infused: 300 Progress Note Anesthesia document: Postop Eval 1 completed: Yes 02/27/25711 Date Eder Peace Signature: Date CC: Signed Normal [facility] MR/[id number] 02-27-2025 [facility] Medical Records Department [address] [place] [address] Anesthesia Postop Eval II 02/27/25 0803 MR#: [id number] Acct: [id number] Name: KRISTA CAMPBELL Rep #: [id number] : 1955 69 From: Suresh Buchanan MD PCP: Dr. Taty Julian MD Status:[facility] Y Race: C Location: EN Anesthesia Postop Eval I Sum Postop Eval Completion status Anesthesia document: Postop Eval 1 completed: Yes Anesthesia Postop Eval I Summary Anesthesia Postop Eval I Summary: Anesthesia Postop Eval I: Assessment Summary Airway patent Yes 02/27/25 07:12 [email or web address] Spontaneous unlabored Yes 02/27/25 07:12 [email or web address] respirations Mental status Asleep 02/27/25 07:12 [email or web address] nausea No 02/27/25 07:12 [email or web address] Vomiting No 02/27/25 07:12 [email or web address] Anesthesia Postop Eval I: Fluid Summary Crystalloid volume administer 300 02/27/25 07:12 [email or web address] (ml) Colloids volume administered ( ml) Blood Product volume administered (ml) Total IV fluid infused 300 02/27/25 07:12 [email or web address] Anesthesia Postop Eval I: Summary Notes Anesthesia Complication No 02/27/25 07:12 [email or web address] Anesthesia Complication Comment: Post-operative progress note Anesthesia: Postop Eval II Evaluation Mental status: Awake and Calm Pain Level: 0 nausea: No Vomiting: No Complications Anesthesia Complication: No 02/27/25 0806 Date Suresh Steinerigndrake Signature: Date CC: Signed Normal [facility] Lower GI hemoglobin IA Ql (S tl)Ordered By: Tima Worrell on 12-30-2024 Stool Occult Blood (ANA) [facility] Stool Occult Blood iFOBon STOB Negative Normal [facility] Comment on above: Performed By: #### M 100.7900 #### [facility] Laboratory [address] [place], [address] Stool gastrointestinal hemog lobin detection by immunologic methodOrdered By: Tima Worrell on 12-30-2024 Lower GI hemoglobin IA Ql (Stl) [facility] Gastroenterology Visit Repor ton 12-29-2024 Gastroenterology Visit Report [facility] [address] [place] [address] OFFICE VISIT Date of Service: 12/29/24 MR#: [id number] Acct: [id number] Name: KRISTA CAMPBELL Rep #: [id number] : 1955 Provider: Dr. Tima mansfield MD Age/Sex: 69/F Location: [facility] Status: Signed Intake Vital Signs 09/28/24 09:36 11/09/24 14:11 12/29/24 09:04 Height 4 ft 11 in 4 ft 11 in 4 ft 11 in Weight: 155 lb BMI 31.3 BP 100/66 Blood Pressure Location Rt brachial Position Sitting Respiration 16 Pulse 79 Pulse Source Monitor Temp 98.3 F Temp Source Oral Pulse Oximetry (%) 98 Oxygen Delivery Method room air Intake Visit Reasons: 3 M FU Chief Complaint: Follow up, Cirrhosis Floor Hand Required: No Accompanied by: Is patient in pain?: No Allergies ciprofloxacin (From Cipro) Allergy (Verified 12/29/24 09:06) Other ciprofloxacin HCl (From Cipro) Allergy (Verified 12/29/24 09:06) Other metronidazole Allergy (Verified 12/29/24 09:06) Other Penicillins (PCN) Allergy (Verified 12/29/24 09:06) Other Sulfa (Sulfonamide Antibiotics) Allergy (Verified 12/29/24 09:06) Rash Yfonbbu-BLJ-YpV Reductase Inhibitor Adverse Reaction (Verified 12/29/24 09:06) Other Medications ???Medication ???Instructions ???Recorded ???Confirmed ???Type rizatriptan 10 mg tablet 10 mg PO PRN PRN Migraine Headache 12/28/13 12/29/24 History Lactobacillus acidophilus 10 mg PO DAILY Check with primary 01/18/23 12/29/24 History (Acidophilus capsule) doctor allopurinol 100 mg tablet 100 mg PO DAILY Check with primary 01/18/23 12/29/24 History doctor cyclosporine 0.05 % eye drops in a 1 drp ophthalmic (eye) BID healt h 01/18/23 12/29/24 History dropperette (Restasis) maintenance erythromycin 5 mg/gram (0.5 %) eye 1 applic ophthalmic (eye) QHS 12/29/24 History ointment health maintenance ezetimibe 10 mg tablet 10 mg PO DAILY Check with primary 01/18/23 12/29/24 History doctor fluorometholone 0.1 % eye 1 drp ophthalmic (eye) BID health 01/18/23 12/29/24 History drops,suspension maintenance gabapentin 400 mg tablet 800 mg PO QHS health maintenance 0 01/18/23 12/29/24 History galcanezumab-gnlm 120 mg/mL 120 mg subcut QMONTH Check with 12/29/24 History subcutaneous pen injector primary doctor (Emgality Pen) metformin 1,000 mg tablet 1,000 mg PO BID diabetic 01/18/23 12/29/24 History multivitamin with minerals 2 tab PO DAILY Check with primary 01/18/23 12/29/24 History (Hair,Skin and Nails tablet) doctor twwhcstsuvzs-Tp-alqd-min erals 18 2 tab PO DAILY health maintenance 01/18/23 12/29/24 History mg-0.4 mg tablet vit C 250 mg-vit E 90 mg-zinc 40 1 tab PO BID Check with primary 12/29/24 History mg-copper 1 uq-afwxtj-xqbvqz doctor capsule (PreserVision AREDS-2) magnesium 200 mg tablet 200 mg PO DAILY Check with primary 07/04/24 12/29/24 History doctor lactulose 20 gram/30 mL oral 20 g PO QDAY 07/15/24 12/29/24 His tory solution spironolactone 25 mg tablet 25 mg PO DAILY 1 month #30 tabs 12/29/24 Rx carvedilol 6.25 mg tablet 6.25 mg PO BID 1 month #60 tabs 12/29/24 Rx rifaximin 550 mg tablet (Xifaxan) 550 mg PO BID 30 days #60 tabs 12/29/24 Rx ascorbic acid (vitamin C) 500 mg 500 mg PO BID 1 month #60 tabs 12/29/24 Rx chewable tablet dulaglutide 3 mg/0.5 mL 4.5 mg subcut TH Check with 12/29/24 History subcutaneous pen injector primary doctor (Trulicity) elderberry fruit 350 mg capsule 700 mg PO QDAY 12/29/24 12/29/24 H istory ferrous sulfate 325 mg (65 mg 325 mg PO QDAY 1 month #30 tabs 12/29/24 Rx iron) tablet levothyroxine 75 mcg tablet 75 mcg PO QDAY 1 month #30 tabs 12/29/24 Rx pantoprazole 40 mg tablet,delayed 40 mg PO QDAY 12/29/24 12/29/24 H istory release vit C 62.5 mg-vit D3 15 mcg-zinc 2 tab PO QDAY 12/29/24 12/29/24 Hi story 2.75 mg-herbal no.358 chewable tablet (Immune Power) Have you fallen in the past year?: No PFSH Medical History Back pain Wears glasses Thyroid disease Gout Arthritis Anemia High cholesterol History of GI bleed History of diverticulitis Gastric reflux Former smoker History of edema History of echocardiogram History of stress test Hypertension Diabetes Migraines Surgical History History of esophagogastroduodenosco py (EGD) Hx of esophagogastroduodenosco py Hx of tonsillectomy History of Status post left foot surgery Family History Grandfather Diabetes Grandmother Diabetes Fat (more content not included)... Normal [facility] Absolute lymphocyte countOrd ered By: Tima Worrell on 12-24-2024 Lymphocytes Auto (Unsp spec) [#/Vol] 0.95 10*3/uL 0.83-4.51 [facility] Absolute neutrophil countOrd ered By: Tima Worrell on 12-24-2024 Neutrophils (Bld) [#/Vol] 3.2 10*3/uL 2.0-7.7 [facility] Anion gap in Serum or Plasma Ordered By: Tima Worrell on 12-24-2024 Anion gap [Moles/Vol] 16 mmol/L High 5-15 [facility] Automated lymphocyte count a s percentage of total leukocytesOrdered By: Tima Worrell on 12-24-2024 Lymphocytes/100 WBC Auto (Unsp spec) 20.0 % 19-41 [facility] BUN/creatinine ratioOrdered By: Tima Worrell on 12-24-2024 Urea nitrogen/Creatinine [Mass ratio] 17.6 mg/mg 10-20 [facility] Basophil percentageOrdered B y: Tima Worrell on 12-24-2024 Basophils/100 WBC (Bld) 0.8 % 0-1 [facility] Bilirubin, totalOrdered By: Tima Worrell on 12-24-2024 Bilirubin [Mass/Vol] 0.33 mg/dL 0.00-1.30 [facility] CBC W/Diff, Automatedon Absolute Lymph 0.95 X10 3/uL Normal 0.83-4.51 [facility] Comment on above: Performed By: #### M 100.7900 #### [facility] Laboratory [address] [place], [address] Absolute Neut 3.2 X10 3/uL Normal 2.0-7.7 [facility] Comment on above: Performed By: #### M 100.7900 #### [facility] [address] [place], [address] Basophils/100 WBC (Bld) 0.8 % Normal 0-1 [facility] Comment on above: Performed By: #### M 100.7900 #### [facility] [address] [place], [address] Eosinophils/100 WBC (Bld) 5.3 % High 0-5 [facility] Comment on above: Performed By: #### M 100.7900 #### [facility] [address] [place], [address] Erythrocyte distribution width (RBC) [Ratio] 16.5 % High 11.6-14.6 [facility] Comment on above: Performed By: #### M 100.7900 #### [facility] [address] [place], [address] Hematocrit (Bld) [Volume fraction] 29.6 % Low 37-47 [facility] Comment on above: Performed By: #### M 100.7900 #### [facility] [address] [place], [address] Hemoglobin (Bld) [Mass/Vol] 8.0 g/dL Low 12.0-15.0 [facility] Comment on above: Performed By: #### M 100.7900 #### [facility] [address] [place], [address] IG% 0.400 Normal 0.0-0.9 [facility] Comment on above: Result Comment: IG% - Immature Granulocytes (promyelocytes, myelocytes and metamyelocytes) > 1% indicates that a LEFT SHIFT is Present. Performed By: #### M 100.7900 #### [facility] [address] [place], [address] Lymphocytes/100 WBC (Bld) 20.0 % Normal 19-41 [facility] Comment on above: Performed By: #### M 100.7900 #### [facility] [address] [place], [address] MCH (RBC) [Entitic mass] 21.8 pg Low 27.0-32.0 [facility] Comment on above: Performed By: #### M 100.7900 #### [facility] [address] [place], [address] MCHC (RBC) [Mass/Vol] 27.0 g/dL Low 32-36 [facility] Comment on above: Performed By: #### M 100.7900 #### [facility] [address] [place], [address] MCV (RBC) [Entitic vol] 80.7 fL Low 81-99 [facility] Comment on above: Performed By: #### M 100.7900 #### [facility] [address] [place], [address] Monocytes/100 WBC (Bld) 5.7 % Normal 0-10 [facility] Comment on above: Performed By: #### M 100.7900 #### [facility] [address] [place], [address] Neutrophils/100 WBC (Bld) 67.8 % Normal 47-70 [facility] Comment on above: Performed By: #### M 100.7900 #### [facility] [address] [place], [address] Nucleated RBC (Bld) [#/Vol] 0 10*3/uL Normal 0-5 [facility] Comment on above: Performed By: #### M 100.7900 #### [facility] [address] [place], [address] Platelet mean volume (Bld) [Entitic vol] 12.2 fL High 6.2-12.0 [facility] Comment on above: Performed By: #### M 100.7900 #### [facility] [address] [place], [address] Platelets (Bld) [#/Vol] 68 10*3/uL Low 150-450 [facility] Comment on above: Performed By: #### M 100.7900 #### [facility] [address] [place], [address] RDW SD 47.9 fl High 35.1-43.9 [facility] Comment on above: Performed By: #### M 100.7900 #### [facility] [address] [place], [address] CRPon 12-24-2024 C-REACTIVE PROT 8.98 mg/L High 0.0-3.0 [facility] Comment on above: Performed By: #### L 100.0100, L501.6710, L101.9900, L500.2500 #### [facility] [address] [place], [address] CRP [Mass/Vol]Ordered By: Demetrius Worrell on 12-24-2024 C-Reactive Protein Extended Range 8.98 mg/L High 0.0-3.0 [facility] Carbon dioxide, total [Moles /volume] in Central venous bloodOrdered By: Tima Worrell on 12-24-2024 CO2 [Moles/Vol] 21.6 mmol/L 21.0-32.0 [facility] Chloride assayOrdered By: Demetrius Worrell on 12-24-2024 Chloride [Moles/Vol] 101 mmol/L 98-108 [facility] Comprehensive Metabolic Prof ilon 12-24-2024 Albumin [Mass/Vol] 4.3 g/dL Normal 3.4-4.8 [facility] Comment on above: Performed By: #### L 100.0100, L501.6710, L101.9900, L500.2500 #### [facility] [address] [place], [address] Albumin/Globulin [Mass ratio] 1.6 {ratio} Normal 0.9-2.4 [facility] Comment on above: Performed By: #### L 100.0100, L501.6710, L101.9900, L500.2500 #### [facility] [address] [place], [address] ALK PHOS 100 U/L Normal 35-104 [facility] Comment on above: Performed By: #### L 100.0100, L501.6710, L101.9900, L500.2500 #### [facility] [address] [place], [address] ALT [Catalytic activity/Vol] 21 U/L Normal <=34 [facility] Comment on above: Performed By: #### L 100.0100, L501.6710, L101.9900, L500.2500 #### [facility] [address] [place], [address] AST [Catalytic activity/Vol] 31 U/L Normal <=31 [facility] Comment on above: Performed By: #### L 100.0100, L501.6710, L101.9900, L500.2500 #### [facility] [facility] [address] [place], [address] Bilirubin [Mass/Vol] 0.33 mg/dL Normal 0.00-1.30 [facility] Comment on above: Performed By: #### L 100.0100, L501.6710, L101.9900, L500.2500 #### [facility] [address] [place], [address] BUN/CRE 17.6 RATIO Normal 10-20 [facility] Comment on above: Performed By: #### L 100.0100, L501.6710, L101.9900, L500.2500 #### [facility] [address] [place], [address] Calcium [Mass/Vol] 9.2 mg/dL Normal 7.6-11.0 [facility] Comment on above: Performed By: #### L 100.0100, L501.6710, L101.9900, L500.2500 #### [facility] [address] [place], [address] Chloride [Moles/Vol] 101 mmol/L Normal 98-108 [facility] Comment on above: Performed By: #### L 100.0100, L501.6710, L101.9900, L500.2500 #### [facility] [address] [place], [address] CO2 [Moles/Vol] 21.6 mmol/L Normal 21.0-32.0 [facility] Comment on above: Performed By: #### L 100.0100, L501.6710, L101.9900, L500.2500 #### [facility] [address] [place], [address] Creatinine [Mass/Vol] 0.65 mg/dL Low 0.70-1.20 [facility] Comment on above: Performed By: #### L 100.0100, L501.6710, L101.9900, L500.2500 #### [facility] [address] [place], [address] GAP 16 High 5-15 [facility] Comment on above: Performed By: #### L 100.0100, L501.6710, L101.9900, L500.2500 #### [facility] [address] [place], [address] GFR/1.73 sq M.predicted among non-blacks MDRD (S/P/Bld) [Vol rate/Area] 95 mL/min/{1.73_m2} Normal >60 [facility] Comment on above: Result Comment: mL/m in/1.73m2 CKD-EPI Creatinine Equation (2020) Performed By: #### L 100.0100, L501.6710, L101.9900, L500.2500 #### [facility] [address] [place], [address] Globulin (S) [Mass/Vol] 2.6 g/dL Normal 2.2-4.2 [facility] Comment on above: Performed By: #### L 100.0100, L501.6710, L101.9900, L500.2500 #### [facility] [address] [place], [address] Glucose [Mass/Vol] 282 mg/dL High 70-99 [facility] Comment on above: Performed By: #### L 100.0100, L501.6710, L101.9900, L500.2500 #### [facility] [address] [place], [address] Potassium [Moles/Vol] 4.1 mmol/L Normal 3.3-5.1 [facility] Comment on above: Performed By: #### L 100.0100, L501.6710, L101.9900, L500.2500 #### [facility] [address] [place], [address] Sodium [Moles/Vol] 138 mmol/L Normal 133-145 [facility] Comment on above: Performed By: #### L 100.0100, L501.6710, L101.9900, L500.2500 #### [facility] [address] [place], [address] T PROT 7.0 g/dL Normal 5.9-8.4 [facility] Comment on above: Performed By: #### L 100.0100, L501.6710, L101.9900, L500.2500 #### [facility] [address] [place], [address] Urea nitrogen [Mass/Vol] 12 mg/dL Normal 4-19 [facility] Comment on above: Performed By: #### L 100.0100, L501.6710, L101.9900, L500.2500 #### [facility] [address] [place], [address] Eosinophil percentageOrdered By: Tima Worrell on 12-24-2024 Eosinophils/100 WBC (Bld) 5.3 % High 0-5 [facility] Erythrocyte distribution wid th ratioOrdered By: Tima Worrell on 12-24-2024 Erythrocyte distribution width (RBC) [Ratio] 16.5 % High 11.6-14.6 [facility] Erythrocyte distribution wid th standard deviationOrdered By: Tima Worrell on 12-24-2024 Erythrocyte distribution width (RBC) [Entitic vol] 47.9 fL High 35.1-43.9 [facility] Erythrocyte distribution width (RBC) [Ratio] 47.9 fl High 35.1-43.9 [facility] GFR/1.73 sq M.predicted ammy g non-blacks MDRD (S/P/Bld) [Vol rate/Area]Ordered By: Tima Worrell on 12-24-2024 Estimated GFR (MDRD) Non-Af Amer 95 >60 [facility] Comment on above: mL/min/1.73m2 CKD-EP I Creatinine Equation (2020) Glomerular filtration rate ( GFR) estimation/1.73 sq m using serum, plasma, or whole bOrdered By: Tima Worrell on 12-24-2024 GFR/1.73 sq M.predicted among non-blacks MDRD (S/P/Bld) [Vol rate/Area] 95 mL/min/{1.73_m2} >60 [facility] Comment on above: mL/min/1.73m2 CKD-EP I Creatinine Equation (2020) Hematocrit Auto (Bld) [Volum e fraction]Ordered By: Tima Worrell on 12-24-2024 Hematocrit (Bld) [Volume fraction] 29.6 % Low 37-47 [facility] Hemoglobin measurementOrdere d By: Tima Worrell on 12-24-2024 Hemoglobin (Bld) [Mass/Vol] 8.0 g/dL Low 12.0-15.0 [facility] Immature granulocytes/100 WB C Auto (Bld)Ordered By: Tima Worrell on 12-24-2024 Immature granulocytes/100 WBC (Bld) 0.400 % 0.0-0.9 [facility] Comment on above: IG% - Immature Granu locytes (promyelocytes, myelocytes and metamyelocytes) > 1% indicates that a LEFT SHIFT is Present. International normalized rat io (INR) calculationOrdered By: Tima Worrell on 12-24-2024 INR Coag (Bld) [Relative time] 1.0 {INR} [facility] - Chemistry and C hemistry - challengeOrdered By: Tima Worrell on 12-24-2024 AST [Catalytic activity/Vol] 31 U/L <32 [facility] Lymphocytes Auto (Unsp spec) [#/Vol]Ordered By: Tima Worrell on 12-24-2024 Lymphocytes (Bld) [#/Vol] 0.95 10*3/uL 0.83-4.51 [facility] Lymphocytes/100 WBC Auto (Un sp spec)Ordered By: Tima Worrell on 12-24-2024 Lymphocytes/100 WBC (Bld) 20.0 % 19-41 [facility] MCV (mean corpuscular volume ) determinationOrdered By: Tima Worrell on 12-24-2024 MCV (RBC) [Entitic vol] 80.7 fL Low 81-99 [facility] Mean corpuscular hemoglobin (MCH) determinationOrdered By: Tima Worrell on 12-24-2024 MCH (RBC) [Entitic mass] 21.8 pg Low 27.0-32.0 [facility] Mean corpuscular hemoglobin concentration (MCHC) determinationOrdered By: Tima Worrell on 12-24-2024 MCHC (RBC) [Mass/Vol] 27.0 g/dL Low 32-36 [facility] Mean platelet volume determi nationOrdered By: Tima Worrell on 12-24-2024 Platelet mean volume (Bld) [Entitic vol] 12.2 fL High 6.2-12.0 [facility] Monocyte percentageOrdered B y: Tima Worrell on 12-24-2024 Monocytes/100 WBC (Bld) 5.7 % 0-10 [facility] Neutrophil percentageOrdered By: Tima Worrell on 12-24-2024 Neutrophils/100 WBC (Bld) 67.8 % 47-70 [facility] Nucleated red blood cell per centageOrdered By: Tima Worrell on 12-24-2024 Nucleated RBC/100 WBC (Bld) [Ratio] 0 % 0-5 [facility] Platelet countOrdered By: Demetrius Worrell on 12-24-2024 Platelets (Bld) [#/Vol] 68 10*3/uL Low 150-450 [facility] Potassium (Unsp spec) [Mass/ Vol]Ordered By: Tima Worrell on 12-24-2024 Potassium [Moles/Vol] 4.1 mmol/L 3.3-5.1 [facility] Potassium measurement (mass/ volume)Ordered By: Tima Worrell on 12-24-2024 Potassium (Unsp spec) [Mass/Vol] 4.1 mmol/L 3.3-5.1 [facility] Prothrombin Time w/INRon INR Coag (PPP) [Relative time] 1.0 {INR} Normal [facility] Comment on above: Performed By: #### M 100.7709 #### [facility] [address] [place], [address] PT Coag (PPP) [Time] 13.6 s Normal 11.7-14.9 [facility] Comment on above: Performed By: #### M 100.7900 #### [facility] [address] [place], [place], [id number] Prothrombin timeOrdered By: Tima Worrell on 12-24-2024 PT Coag (PPP) [Time] 13.6 s 11.7-14.9 [facility] RBC Auto (Bld) [#/Vol]Ordere d By: Tima Worrell on 12-24-2024 RBC (Bld) [#/Vol] 3.67 10*6/uL Low 4.2-5.4 [facility] Serum creatinine measurement (mass/volume)Ordered By: Tima Worrell on 12-24-2024 Creatinine [Mass/Vol] 0.65 mg/dL Low 0.70-1.20 [facility] Serum globulin measurementOr dered By: Tima Worrell on 12-24-2024 Globulin (S) [Mass/Vol] 2.6 g/dL 2.2-4.2 [facility] Serum glucose measurement (m ass/volume)Ordered By: Tima Worrell on 12-24-2024 Glucose [Mass/Vol] 282 mg/dL High 70-99 [facility] Serum or plasma C reactive p rotein measurement (mass/volume)Ordered By: Tima Worrell on 12-24-2024 CRP [Mass/Vol] 8.98 mg/L High 0.0-3.0 [facility] Serum or plasma alanine chong otransferase (ALT) measurementOrdered By: Tima Worrell on 12-24-2024 ALT [Catalytic activity/Vol] 21 U/L <35 [facility] Serum or plasma albumin isabel urement (mass/volume)Ordered By: Tima Worrell on 12-24-2024 Albumin [Mass/Vol] 4.3 g/dL 3.4-4.8 [facility] Serum or plasma albumin/glob ulin mass ratioOrdered By: Tima Worrell on 12-24-2024 Albumin/Globulin [Mass ratio] 1.6 {ratio} 0.9-2.4 [facility] Serum or plasma alkaline niko sphatase measurementOrdered By: Tima Worrell on 12-24-2024 ALP [Catalytic activity/Vol] 100 U/L 35-104 [facility] Serum or plasma calcium isabel urement (mass/volume)Ordered By: Tima Worrell on 12-24-2024 Calcium [Mass/Vol] 9.2 mg/dL 7.6-11.0 [facility] Serum or plasma urea nitroge n measurement (mass/volume)Ordered By: Tima Worrell on 12-24-2024 Urea nitrogen [Mass/Vol] 12 mg/dL 4-19 [facility] Sodium levelOrdered By: Guzman Worrell on 12-24-2024 Sodium [Moles/Vol] 138 mmol/L 133-145 [facility] Total proteinOrdered By: Amanda Worrell on 12-24-2024 Protein [Mass/Vol] 7.0 g/dL 5.9-8.4 [facility] White blood cell (WBC) count Ordered By: Tima Worrell on 12-24-2024 WBC (Bld) [#/Vol] 4.7 10*3/uL 4.4-11.0 [facility] CNOVon 12-09-2024 CNOV Office Visit (FAMPWS ) -------- KRISTA CAMPBELL ([id number]) 1955 F Date Time Provider Department 12/09/24 8:40 AM TATY JULIANWS During your visit today, we recorded the following information about you: Pulse Respiration Blood pressure Weight 72/minute 18/minute 106/64 71.3 kg Taty Julian MD 12/09/2024 5:32 PM Signed Chief Complaint Patient presents with: F/U 6 Month HPI Krista Campbell is a 69 year old female who presents here today for a 6 month follow up. Pt here today for a routine follow up. GI/Uro - Follows with Gastro Dr. Yen and Dr. Curtis for cirrhosis and esophageal varices. Had EGD done on 11/09/24, with procedure every 3 months. Office received orders in September from [facility] for swallowing eval and FEES for dysphagia. GERD sx controlled with Protonix 40 mg 1 pill BID. Is taking Lactulose 10 g TID for sirrhosis. Started on Aldactone 25 mg, 1 pill daily and Xifaxan 550 mg 1 pill BID. DM: Checks sugars once daily with FBS 150-220. Sugars have nanci higher recently. Denies any hypoglycemic episodes. 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 Follows with Eye Doctor. Taking Metformin 1,000 mg 1 pill BID and trulicity 3 mg weekly. Amaryl was d/c last visit due to low bs. Since going off medication has not had any further lows, but blood sugars are higher. Lipid: Currently taking Zetia 10 mg daily. Tries to watch diet; portion sizes, eat more salads, vegetables, and limiting meat and sugar intake. Some activity, but tends to be more active during the summer months. Anemia: Hx of transfusions, taking Iron every other day. Follows with GI for cirrhosis and varices. Recent EGD done on 11/09/24. Thyroid: Currently taking Levothyroxine 88 mcg once daily. Denies any missed dosages, feels stable on regimen. Gout: Stable with Allopurinol 300 [address] daily[address] Dr. Kulkarni, Podiatry with [facility]. Denies any recent flares. Migraines: Doing well on Gabapentin 400 mg 2 pills at bedtime, Emgality injections every month and Maxalt prn. Follows with Dr. Thapa, Neuro. Follows with Maria Esther Singh, had skin cancer removed from neck. Pt completed Medical Records Release [facility] during office visit. This was faxed to [phone]. - Declines Flu and Covid vaccine at this time. May decide to get this in the future through Pharmacy. Has Adv Dir/Living Will scanned into chart. RSV through Pharmacy due to Medicare. Past medical history, appointments, medications, allergies reviewed. Previous Medical History PAST MEDICAL HISTORY Diagnosis Date Arthritis in Hands Cervical disc disease Diabetes (HCC) Gout Macular degeneration Other forms of migraine Personal history of colonic polyps Snoring does not use C-pap Thyroid disease Previous Surgical History PAST SURGICAL HISTORY Procedure Laterality Date ABDOMINAL SURGERY HX DELIVERY ONLY , low cervical COLONOSCOPY 07/11/2022 repeat in 5 years COLONOSCOPY FLX DX W/COLLJ SPEC WHEN PFRMD 01/09/2010 Colonoscopy COLONOSCOPY FLX DX W/COLLJ SPEC WHEN PFRMD 01/15/2011 COLONOSCOPY FLX DX W/COLLJ SPEC WHEN PFRMD 03/27/2016 Colonoscopy COLONOSCOPY FLX DX W/COLLJ SPEC WHEN PFRMD 06/08/2017 Colonoscopy DILATION AND CURETTAGE DXAND/THER NONOBSTETRIC Dilation AND curettage EGD W/O [facility] SPEC VARICIES INJ N/A 01/20/2023 [facility] EGD W/O [facility] SPEC VARICIES INJ N/A 04/08/2023 [facility] ESOPHAGOGASTRODUODENOSCO PY TRANSORAL DIAGNOSTIC 01/2004 EGD ESOPHAGOGASTRODUODENOSCO PY TRANSORAL DIAGNOSTIC 03/29/2018 EGD FRACTURE SURGERY LIG/TRNSXJ FLP TUBE ABDL/VAG APPR UNI/BI PAST SURGICAL HISTORY OF Left 07/07/2022 Left foot surgery with plates and screws placed STEREOTACTIC CORE BIOPSY 07/13/2007 LEFT BREAST- benign TONSILLECTOMY HX TONSILLECTOMY PRIMARY/SECONDARY Family History FAMILY HISTORY Problem Relation Age of Onset Diabetes Mother Hypertension Mother Hypertension Father Diabetes Father Patient Allergies ALLERGIES Allergen Reactions Wlgntcf-Fes-Oqi Red* Myalgia Knees shake, weak and joints ache Cipro [Ciprofloxaci* Hives Metronidazole Hives Penicillins Rash Age 19 -- rash all over, hives Sulfa (Sulfonamide * Rash Current Medications Current Outpatient Medications on File Prior to Visit Medication Sig levothyroxine (SYNTHROID) 88 mcg tablet Take 1 tablet by mouth once daily. Take on empty stomach. rifAXIMin (XIFAXAN) 550 mg tablet Take 550 mg by mouth two times a day. spironolactone (ALDACTONE) 25 mg tablet Take 25 mg by mouth once daily. Take half pill daily fexofenadine (JACQUELINE ALLERGY) 180 mg tablet Take 1 tablet by mouth once daily. metFORMIN (GLUCOPHAGE) 1,000 mg tablet Take 1 tablet by mouth two times a day with meals. pantoprazole DR (PROTONIX) 40 mg tablet Take 1 tablet by mouth two times a day. ainsley (more content not included)... Normal [facility] Drea 12-09-2024 [facility] Telephone (INTMWS) -------- KRISTA CAMPBELL ([id number]) 1955 F Date Time Provider Department 12/09/24 TATY JULIAN During your visit today, we recorded the following information about you: Diana Mcghee LPN 12/09/2024 11:01 AM Signed Electronic PA completed for trulicity. This was approved. Pharmacy notified. Prior authorization approved Payer: [employer] P[employer] Part D [phone] Note from payer: Request Reference Number: [id number]. TRULICITY INJ 4.5/0.5 is approved through 10/18/2025. Your patient may now fill this prescription and it will be covered. Approval Details Authorization number: [id number] Authorized from December 09, 2024 to October 18, 2025 Electronic appeal: Not supported View History Notes Time User Attachment Attachment received from payer. 12/09/2024 9:20 AM [facility] Document Medication Being Authorized dulaglutide (TRULICITY) 4.5 mg/0.5 mL pen injector Inject 4.5 mg subcutaneously one time a week. Dispense: 6 mL Refills: 3 Start: 12/09/2024 Class: Normal Diagnoses: Type 2 diabetes mellitus without complication, without long-term current use of insulin (HCC) This order has been released to its destination. To be filled at: [facility] [id number] - [place] [address] [address] [facility] [phone] Allergies As of Date: 12/09/2024 Noted Allergy Reaction KITMEHC-OSZ-ZDM REDUCTASE INHIBIT*03/12/2023 17 - Myalgia Comments: Knees shake, weak and joints ache CIPRO (CIPROFLOXACIN) 08/28/2009 4 - Hives METRONIDAZOLE 08/28/2009 4 - Hives PENICILLINS 07/16/2005 2 - Rash Comments: Age 19 -- rash all over, hives SULFA (SULFONAMIDE ANTIBIOTICS) 07/16/2005 2 - Rash Date Reviewed: 12/09/2024 Reviewed by: Carmen Mckeon MA - Fully Assessed Reason for Visit: Insurance Authorization [[id number]] Prescriptions as of 12/09/2024 - ferrous sulfate 325 mg (65 mg iron) tablet Take 1 tablet by mouth every other day. - carvedilol (COREG) 6.25 mg tablet Take 1 tablet by mouth two times a day with meals. - pantoprazole DR (PROTONIX) 40 mg tablet Take 1 tablet by mouth two times a day. - ezetimibe (ZETIA) 10 mg tablet Take 1 tablet by mouth once daily. - metFORMIN (GLUCOPHAGE) 1,000 mg tablet Take 1 tablet by mouth two times a day with meals. - dulaglutide (TRULICITY) 4.5 mg/0.5 mL pen injector Inject 4.5 mg subcutaneously one time a week. - levothyroxine (SYNTHROID) 88 mcg tablet Take 1 tablet by mouth once daily. Take on empty stomach. - rifAXIMin (XIFAXAN) 550 mg tablet Take 550 mg by mouth two times a day. - spironolactone (ALDACTONE) 25 mg tablet Take 25 mg by mouth once daily. Take half pill daily - allopurinol (ZYLOPRIM) 100 mg tablet Take 1 tablet by mouth once daily. - Magnesium 250 mg tab Take 1 tablet by mouth twice daily. - lactulose 10 gram/15 mL solution Take 30 mL by mouth. - gabapentin (NEURONTIN) 400 mg capsule Take 1 capsule by mouth twice daily. - vitamin C-biotin (VYEY-HDXV-QETMW, VIT C-BIOTIN,) 50 mg -1,250 mcg chew Take 2 tablets by mouth once daily. - EMGALITY PEN 120 mg/mL pen Inject 120 mg subcutaneously once every month. - fluorometholone (FML LIQUID FILM) 0.1 % ophthalmic suspension - rizatriptan (MAXALT) 10 mg tablet - MV-MN/FOLIC ACID/CALCIUM/VIT K (ONE-A-DAY WOMEN'S 50 PLUS ORAL) Take by mouth. - L.ACID/L.CASEI/B.BIF/B.L ON/FOS (PROBIOTIC BLEND ORAL) Take by mouth. - cycloSPORINE (RESTASIS) 0.05 % ophthalmic emulsion Use 1 Drop in both eyes twice daily. - ERYTHROMYCIN BASE (ERYTHROMYCIN OPHTHALMIC) Use in eyes. - VIT C/NARCISA AC/LUT/COPPER/ZNOX (PRESERVISION LUTEIN ORAL) Take 1 tablet by mouth twice daily. Problem List As Of Date 12/09/2024 Noted Resolved Intractable migraine without aura [G43.019] 09/23/2006 1.8.1 TRANSFORMED MIGRAINE W/ MEDICATION OVERUS*09/23/2006 Abnormal mammogram, unspecified [R92.8] 06/14/2007 08/20/2011 DIFFUS CYSTIC MASTOPATHY [N60.19] 06/05/2008 Nonspecific abnormal finding in stool contents *01/09/2010 08/20/2011 Benign Neoplasm of Colon [D12.6] 01/09/2010 Hypothyroidism [E03.9] 08/20/2011 Elevated LFTs [R79.89] 08/20/2011 Obesity [E66.9] 08/20/2011 Back pain [M54.9] 11/08/2014 Screening for colon cancer [Z12.11] 03/27/2016 03/27/2016 Chronic left shoulder pain [M25.512, G89.29] 01/07/2017 Arthralgia of both elbows [M25.521, M25.522] 01/07/2017 Type 2 diabetes mellitus without complication, *12/02/2017 Steatosis of liver [K76.0] 03/10/2018 Epigastric pain [R10.13] 03/24/2018 Globus sensation [R09.A2] 03/24/2018 Gout [M10.9] 06/01/2019 Impingement syndrome of left shoulder [M75.42] 11/28/2020 Hepatic cirrhosis, unspecified hepatic cirrhosi*03/12/2023 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 Normal [facility] CBC W Auto Differential pane l (Bld)on 11-29-2024 Basophils (Bld) [#/Vol] 0.05 10*3/uL Normal <0.11 [facility] Comment on above: Order Comment: Speci men Type: BLOOD SPECIMENOrdering Facility: [facility] Address: [address] [place] [address] Performed By: #### 5 7021-8 ####[facility] LABCLIA [id number] [place] [address] [place] Basophils/100 WBC (Bld) 1.0 % Normal [facility] Comment on above: Order Comment: Speci men Type: BLOOD SPECIMENOrdering Facility: [facility] Address: [address] [place] [address] Performed By: #### 5 7021-8 ####[facility]CL[facility] [id number] [place] [address] [place] Differential cell count method Nom (Bld) Auto Normal [facility] Comment on above: Order Comment: Speci men Type: BLOOD SPECIMENOrdering Facility: [facility] Address: [address] [place] [address] Performed By: #### 5 7021-8 ####[facility]CL[facility] [id number] [place] [address] [place] Eosinophils (Bld) [#/Vol] 0.27 10*3/uL Normal <0.46 [facility] Comment on above: Order Comment: Speci men Type: BLOOD SPECIMENOrdering Facility: [facility] Address: [address] [place] [address] Performed By: #### 5 7021-8 ####[facility]CL[facility] [id number] [address] [place] Eosinophils/100 WBC (Bld) 5.5 % Normal [facility] Comment on above: Order Comment: Speci men Type: BLOOD SPECIMENOrdering Facility: [facility] Address: [address] [place] [address] Performed By: #### 5 7021-8 ####[facility]CLIA [id number] [id number] [address] [place] Erythrocyte distribution width (RBC) [Ratio] 15.9 % High 11.5-15.0 [facility] Comment on above: Order Comment: Speci men Type: BLOOD SPECIMENOrdering Facility: [facility] Address: [address] [place] [address] Performed By: #### 5 7021-8 ####[facility]CL[facility] [id number] [place] [address] [place] Hematocrit (Bld) [Volume fraction] 30.8 % Low 36.0-46.0 [facility] Comment on above: Order Comment: Speci men Type: BLOOD SPECIMENOrdering Facility: [facility] Address: [address] [place] [address] Performed By: #### 5 7021-8 ####[facility]CLIA [id number] [place] [address] [place] Hemoglobin (Bld) [Mass/Vol] 8.4 g/dL Low 11.5-15.5 [facility] Comment on above: Order Comment: Speci men Type: BLOOD SPECIMENOrdering Facility: [facility] Address: [address] [place] [address] Performed By: #### 5 7021-8 ####[facility] LABIA [id number] [place] [address] [place] Immature granulocytes (Bld) [#/Vol] 10*3/uL Normal <0.10 [facility] Comment on above: Order Comment: Speci men Type: BLOOD SPECIMENOrdering Facility: [facility] Address: [address] [place] [address] Performed By: #### 5 7021-8 ####[facility] LABIA [id number] [place] [address] [place] Immature granulocytes/100 WBC (Bld) 0.4 % Normal [facility] Comment on above: Order Comment: Speci men Type: BLOOD SPECIMENOrdering Facility: [facility] Address: [address] [place] [address] Performed By: #### 5 7021-8 ####[facility]CL[facility] [id number] [place] [address] [place] Lymphocytes (Bld) [#/Vol] 1.18 10*3/uL Normal 1.00-4.00 [facility] Comment on above: Order Comment: Speci men Type: BLOOD SPECIMENOrdering Facility: [facility] Address: [address] [place] [address] Performed By: #### 5 7021-8 ####[facility] [id number] [place] [address] [place] Lymphocytes/100 WBC (Bld) 23.8 % Normal [facility] Comment on above: Order Comment: Speci men Type: BLOOD SPECIMENOrdering Facility: [facility] Address: [address] [place] [address] Performed By: #### 5 7021-8 ####[facility] LABCLIA [id number] [place] [address] [place] MCH (RBC) [Entitic mass] 22.2 pg Low 26.0-34.0 [facility] Comment on above: Order Comment: Speci men Type: BLOOD SPECIMENOrdering Facility: [facility] Address: [address] [place] [address] Performed By: #### 5 7021-8 ####[facility] LABCLIA [id number] [place] [address] [place] MCHC (RBC) [Mass/Vol] 27.3 g/dL Low 30.5-36.0 [facility] Comment on above: Order Comment: Speci men Type: BLOOD SPECIMENOrdering Facility: [facility] Address: [address] [place] [address] Performed By: #### 5 7021-8 ####[facility] LABCLIA [id number] [place] [address] [place] MCV (RBC) [Entitic vol] 81.5 fL Normal 80.0-100.0 [facility] Comment on above: Order Comment: Speci men Type: BLOOD SPECIMENOrdering Facility: [facility] Address: [address] [place] [address] Performed By: #### 5 7021-8 ####[facility] LABCLIA [id number] [place] [address] [place] Monocytes (Bld) [#/Vol] 0.38 10*3/uL Normal <0.87 [facility] Comment on above: Order Comment: Speci men Type: BLOOD SPECIMENOrdering Facility: [facility] Address: [address] [place] [address] Performed By: #### 5 7021-8 ####[facility] LABCLIA [id number] [place] [address] [place] Monocytes/100 WBC (Bld) 7.7 % Normal [facility] Comment on above: Order Comment: Speci men Type: BLOOD SPECIMENOrdering Facility: [facility] Address: [address] [place] [address] Performed By: #### 5 7021-8 ####[facility] LABCLIA [id number] [place] [address] [place] Neutrophils (Bld) [#/Vol] 3.05 10*3/uL Normal 1.45-7.50 [facility] Comment on above: Order Comment: Speci men Type: BLOOD SPECIMENOrdering Facility: [facility] Address: [address] [place] [address] Performed By: #### 5 7021-8 ####[facility] LABCLIA [id number] [place] [address] [place] Neutrophils/100 WBC (Bld) 61.6 % Normal [facility] Comment on above: Order Comment: Speci men Type: BLOOD SPECIMENOrdering Facility: [facility] Address: [address] [place] [address] Performed By: #### 5 7021-8 ####[facility] LABIA [id number] [place] [address] [place] Nucleated RBC (Bld) [#/Vol] 10*3/uL Normal <0.01 [facility] Comment on above: Order Comment: Speci men Type: BLOOD SPECIMENOrdering Facility: [facility] Address: [address] [place] [address] Performed By: #### 5 7021-8 ####[facility] LABIA [id number] [place] [address] [place] Nucleated RBC/100 WBC (Bld) [Ratio] 0.0 /100 WBC Normal [facility] Comment on above: Order Comment: Speci men Type: BLOOD SPECIMENOrdering Facility: [facility] Address: [address] [place] [address] Performed By: #### 5 7021-8 ####[facility] LABIA [id number] [place] [address] [place] Platelet mean volume (Bld) [Entitic vol] 11.8 fL Normal 9.0-12.7 [facility] Comment on above: Order Comment: Speci men Type: BLOOD SPECIMENOrdering Facility: [facility] Address: [address] [place] [address] Performed By: #### 5 7021-8 ####[facility] LABIA [id number] [place] [address] [place] Platelets (Bld) [#/Vol] 82 10*3/uL Low 150-400 C [facility] Comment on above: Order Comment: Speci men Type: BLOOD SPECIMENOrdering Facility: [facility] Address: [address] [place] [address] Result Comment: No c lot detected. Performed By: #### 5 7021-8 ####[facility] LABCLIA [id number] [address] [address] [place] RBC (Bld) [#/Vol] 3.78 10*6/uL Low 3.90-5.20 [facility] Comment on above: Order Comment: Speci men Type: BLOOD SPECIMENOrdering Facility: [facility] Address: [address] [place] [address] Performed By: #### 5 7021-8 ####[facility] LABCLIA [id number] [address] [address] [place] WBC (Bld) [#/Vol] 4.95 10*3/uL Normal 3.70-11.00 [facility] Comment on above: Order Comment: Speci men Type: BLOOD SPECIMENOrdering Facility: [facility] Address: [address] [place] [address] Performed By: #### 5 7021-8 ####[facility] LABCLIA [id number] [place] [id number] [place] Comprehensive metabolic 2000 panelon 11-29-2024 Albumin [Mass/Vol] 4.4 g/dL Normal 3.9-4.9 [facility] Comment on above: Order Comment: Speci men Type: BLOOD SPECIMENOrdering Facility: [facility] Address: [address] [place] [address] Performed By: #### 2 4323-8, 33784-9, 3084-1, 3016-3 ####[facility] LABIA [id number] [place] [id number] [place] ALP [Catalytic activity/Vol] 93 U/L Normal 34-123 [facility] Comment on above: Order Comment: Speci men Type: BLOOD SPECIMENOrdering Facility: [facility] Address: [address] [place] [address] Performed By: #### 2 4323-8, 21046-3, 3084-1, 3016-3 ####[facility] LABCLIA [id number] [address] [address] [place] ALT [Catalytic activity/Vol] 22 U/L Normal 7-38 [facility] Comment on above: Order Comment: Speci men Type: BLOOD SPECIMENOrdering Facility: [facility] Address: [address] [place], [place] [address] Performed By: #### 2 4323-8, 23877-8, 3084-1, 3016-3 ####[facility] LABCLIA [id number] [address] [address] [place] Anion gap [Moles/Vol] 13 mmol/L Normal 8-15 [facility] Comment on above: Order Comment: Speci men Type: BLOOD SPECIMENOrdering Facility: [facility] Address: [address] [place] [address] Performed By: #### 2 4323-8, 46500-7, 3084-1, 3016-3 ####[facility] LABCLIA [id number] [address] [address] [place] AST [Catalytic activity/Vol] 28 U/L Normal 13-35 [facility] Comment on above: Order Comment: Speci men Type: BLOOD SPECIMENOrdering Facility: [facility] Address: [address] [place] [address] Performed By: #### 2 4323-8, 23253-4, 3084-1, 3016-3 ####[facility] LABCLIA [id number] [address] [address] [place] Bilirubin [Mass/Vol] 0.4 mg/dL Normal 0.2-1.3 [facility] Comment on above: Order Comment: Speci men Type: BLOOD SPECIMENOrdering Facility: [facility] Address: [address] [place], [place] [address] Performed By: #### 2 4323-8, 65417-4, 3084-1, 3016-3 ####[facility] LABCLIA [id number] [address] [address] [place] Calcium [Mass/Vol] 9.5 mg/dL Normal 8.5-10.2 [facility] Comment on above: Order Comment: Speci men Type: BLOOD SPECIMENOrdering Facility: [facility] Address: [address] [place] [address] Performed By: #### 2 4323-8, 16480-5, 3084-1, 3016-3 ####[facility] LABCLIA [id number] [address] [address] [place] Chloride [Moles/Vol] 104 mmol/L Normal 98-107 [facility] Comment on above: Order Comment: Speci men Type: BLOOD SPECIMENOrdering Facility: [facility] Address: [address] [place] [address] Performed By: #### 2 4323-8, 71421-2, 3084-1, 3016-3 ####[facility] LABCLIA [id number] [address] [address] [place] CO2 [Moles/Vol] 25 mmol/L Normal 22-30 [facility] Comment on above: Order Comment: Speci men Type: BLOOD SPECIMENOrdering Facility: [facility] Address: [address] [place] [address] Performed By: #### 2 4323-8, 88586-8, 3084-1, 3016-3 ####[facility] LABCLIA [id number] [address] [address] [place] Creatinine [Mass/Vol] 0.62 mg/dL Normal 0.58-0.96 [facility] Comment on above: Order Comment: Speci men Type: BLOOD SPECIMENOrdering Facility: [facility] Address: [address] [place] [address] Performed By: #### 2 4323-8, 26434-3, 3084-1, 3016-3 ####[facility] LABCLIA [id number] [place] [address] [place] Creatinine and Glomerular filtration rate.predicted panel (S/P/Bld) 97 mL/min/1.73m??? Normal >=60 [facility] Comment on above: Order Comment: Judy webb Type: BLOOD SPECIMENOrdering Facility: [facility] Address: [address] [place] [address] Result Comment: Lizbeth mated Glomerular Filtration Rate (eGFR) is calculated using the 2020 CKD-EPI creatinine equation. This equation utilizes serum creatinine, sex, and age as parameters. The creatinine assay has traceable calibration to isotope dilution-mass spectrometry. Refer to KDIGO guidelines for clinical interpretation. In patients with unstable renal function, e.g. those with acute kidney injury, the eGFR may not accurately reflect actual GFR. Performed By: #### 2 4323-8, 36202-4, 3084-1, 3016-3 ####[facility] LABCLIA [id number] [place] [address] [place] Glucose [Mass/Vol] 153 mg/dL High 74-99 [facility] Comment on above: Order Comment: Judy webb Type: BLOOD SPECIMENOrdering Facility: [facility] Address: [address] [place] [address] Result Comment: The [place] Diabetes Association (ADA) provides guidance for cutoff values for fasting glucose and random glucose. The ADA defines fasting as no caloric intake for at least 8 hours. Fasting plasma glucose results between 100 to 125 mg/dL indicate increased risk for diabetes (prediabetes). Fasting plasma glucose results greater than or equal to 126 mg/dL meet the criteria for diagnosis of diabetes. In the absence of unequivocal hyperglycemia, results should be confirmed by repeat testing. In a patient with classic symptoms of hyperglycemia or hyperglycemic crisis, random plasma glucose results greater than or equal to 200 mg/dL meet the criteria for diagnosis of diabetes. Reference: Standards of Medical Care in Diabetes 2016, [place] Diabetes Association. Diabetes Care. 2016.39(Suppl 1). Performed By: #### 2 4323-8, 73831-5, 3084-1, 3016-3 ####[facility] LABCLIA [id number] [address] [address] [place] Potassium [Moles/Vol] 4.6 mmol/L Normal 3.7-5.1 [facility] Comment on above: Order Comment: Speci men Type: BLOOD SPECIMENOrdering Facility: [facility] Address: [address] [place] [address] Performed By: #### 2 4323-8, 17582-6, 3084-1, 3016-3 ####[facility] LABCLIA [id number] [address] [address] [place] Protein [Mass/Vol] 7.2 g/dL Normal 6.3-8.0 [facility] Comment on above: Order Comment: Speci men Type: BLOOD SPECIMENOrdering Facility: [facility] Address: [address] [place] [address] Performed By: #### 2 4323-8, 93732-9, 308-1, 3016-3 ####[facility] LABIA [id number] [place] [address] [place] Sodium [Moles/Vol] 142 mmol/L Normal 136-144 [facility] Comment on above: Order Comment: Speci men Type: BLOOD SPECIMENOrdering Facility: [facility] Address: [address] [place] [address] Performed By: #### 2 4323-8, 77884-6, 3084-1, 3016-3 ####[facility] LABCLIA [id number] [address] [address] [place] Urea nitrogen [Mass/Vol] 11 mg/dL Normal 7-21 [facility] Comment on above: Order Comment: Speci men Type: BLOOD SPECIMENOrdering Facility: [facility] Address: [address] [place], [place] [address] Performed By: #### 2 4323-8, 69980-4, 3084-1, 3016-3 ####[facility] LABCLIA [id number] [address] [place] HbA1c (Bld)on 11-29-2024 Average glucose Estimated from glycated hemoglobin (Bld) [Mass/Vol] 151 mg/dL Normal [facility] Comment on above: Order Comment: Judy webb Type: BLOOD SPECIMENOrdering Facility: [facility] Address: [address] [place] [address] Result Comment: eAG: (Estimated average glucose) is a calculated value from HgbA1c and is customer relations representative of the average blood glucose level in the last 2-3 month period. Performed By: #### 5 5454-3 ####[facility] LABIA [id number] [address] STATES OF [facility] HbA1c (Bld) [Mass fraction] 6.9 % High 4.3-5.6 [facility] Comment on above: Order Comment: Judy webb Type: BLOOD SPECIMENOrdering Facility: [facility] Address: [address] [place] [address] Result Comment: Amer [place] Diabetes Association guidelines indicate that patients with HgbA1c in the range 5.7-6.4% are at increased risk for development of diabetes, and intervention by lifestyle modification may be beneficial. HgbA1c greater or equal to 6.5% is considered diagnostic of diabetes. Performed By: #### 5 5454-3 ####[facility] LABIA [id number] [place] [address] [place] Lipid 1996 panelon 5 Cholesterol [Mass/Vol] 144 mg/dL Normal <200 [facility] Comment on above: Order Comment: Judy webb Type: BLOOD SPECIMENOrdering Facility: [facility] Address: [address] [place] [address] Result Comment: <200 mg/dL, Desirable 200-239 mg/dL, Borderline high >239 mg/dL, High Performed By: #### 2 4323-8, 23674-0, 3084-1, 3016-3 ####[facility] LABCLIA [id number] [address] [place] Cholesterol in HDL [Mass/Vol] 41 mg/dL Normal >39 [facility] Comment on above: Order Comment: Judy webb Type: BLOOD SPECIMENOrdering Facility: [facility] Address: [address] [place] [address] Result Comment: 40-5 9 mg/dL, Acceptable >59 mg/dL, High: Negative risk factor for coronary heart disease <40 mg/dL, Low: Positive risk factor for coronary heart disease Performed By: #### 2 4323-8, 61381-8, 3084-1, 3016-3 ####[facility] LABIA [id number] [address] Cholesterol in LDL [Mass/Vol] 77 mg/dL Normal <100 [facility] Comment on above: Order Comment: Judy webb Type: BLOOD SPECIMENOrdering Facility: [facility] Address: [address] [place] [address] Result Comment: <100 mg/dL, Optimal 100-129 mg/dL, Near optimal/above optimal 130-159 mg/dL, Borderline high 160-189 mg/dL, High >189 mg/dL, Very high Secondary prevention optimal LDL Cholesterol levels are recommended to be < 70 mg/dL Performed By: #### 2 4323-8, 29875-5, 3084-1, 3016-3 ####[facility] LABIA [id number] [address] OF [facility] Cholesterol in LDL/Cholesterol in HDL [Mass ratio] 1.88 {ratio} Normal <2.54 [facility] Comment on above: Order Comment: Judy men Type: BLOOD SPECIMENOrdering Facility: [facility] Address: [address] [place] [address] Result Comment: Juan barros: 1. National Cholesterol Education Program ATP III Guideline At-A-Glance Quick Desk Reference: National Heart, Lung, and Blood [place]. National Institutes of Health. 2001: NIH Publication No. 01-3305. 2. An International Atherosclerosis Society position paper: global recommendations for the management of dyslipidemia: executive summary, Atherosclerosis. 2014: 232(2):410-413. Performed By: #### 2 4323-8, 50445-5, 3084-1, 3016-3 ####[facility] LABCLIA [id number] [address] [address] [place] Cholesterol in VLDL [Mass/Vol] 26 mg/dL Normal <30 [facility] Comment on above: Order Comment: Speci men Type: BLOOD SPECIMENOrdering Facility: [facility] Address: [address] [place] [address] Performed By: #### 2 4323-8, 15200-5, 3084-1, 6-3 ####[facility] LABCLIA [id number] [place] [address] [place] Cholesterol non HDL [Mass/Vol] 103 mg/dL Normal <130 [facility] Comment on above: Order Comment: Speci men Type: BLOOD SPECIMENOrdering Facility: [facility] Address: [address] [place] [address] Result Comment: <130 mg/dL, Optimal 130-159 mg/dL, Near optimal/above optimal 160-189 mg/dL, Borderline high 190-219 mg/dL, High >219 mg/dL, Very high Secondary prevention optimal non HDL Cholesterol levels are recommended to be <100 mg/dL Performed By: #### 2 4323-8, 80426-9, 3083-1, 6-3 ####[facility] LABCLIA [id number] [address] [address] [place] Cholesterol.total/Kristi sterol in HDL [Mass ratio] 3.51 {ratio} Normal <5.10 [facility] Comment on above: Order Comment: Speci men Type: BLOOD SPECIMENOrdering Facility: [facility] Address: [address] [place] [address] Performed By: #### 2 4323-8, 41940-2, 3084-1, 3016-3 ####[facility] LABCLIA [id number] [place] [address] [place] FASTING TIME 12 hrs Normal [facility] Comment on above: Order Comment: Speci men Type: BLOOD SPECIMENOrdering Facility: [facility] Address: [address] [place] [address] Performed By: #### 2 4323-8, 47766-2, 3084-1, 3016-3 ####[facility] LABCLIA [id number] [place] [address] [place] Triglyceride [Mass/Vol] 128 mg/dL Normal <150 [facility] Comment on above: Order Comment: Speci men Type: BLOOD SPECIMENOrdering Facility: [facility] Address: [address] [place] [address] Result Comment: <150 mg/dL, Normal 150-199 mg/dL, Borderline high 200-499 mg/dL, High >499 mg/dL, Very high Performed By: #### 2 4323-8, 80681-2, 3084-1, 3016-3 ####[facility] LABCLIA [id number] [place] [address] [place] TSH SerPl-aCncon 11-29-2024 TSH Qn 0.226 m[IU]/L Low 0.270-4.200 [facility] Comment on above: Order Comment: Speci men Type: BLOOD SPECIMENOrdering Facility: [facility] Address: [address] [place] [address] Performed By: #### 2 4323-8, 90439-5, 3084-1, 3016-3 ####[facility] LABCLIA [id number] [place] [address] [place] Urate SerPl-mCncon 5 Urate [Mass/Vol] 5.3 mg/dL Normal 2.5-6.6 [facility] Comment on above: Order Comment: Speci men Type: BLOOD SPECIMENOrdering Facility: [facility] Address: [address] [place], [place] [address] [place] [id number] Performed By: #### 2 4323-8, 37234-2, 3084-1, 3016-3 ####[facility] LABCLIA [id number] [place]GGY [id number] [address] [place] 36on 11-10-2024 36 Last ov- 03/15/24 Next ov- 03/15/25 Normal [facility] 12 Lead EKGon 11-09-2024 12 Lead EKG [facility] Cardiovascular Services [address] [place] [address] 12 Lead EKG 11/09/24 1532 MR#: [id number] Acct: [id number] Name: KRISTA CAMPBELL Rep #: [id number] : 1955 69 From: Laury Frederick MD Attending Dr: Toño Curtis DO Status: DEP SD C Ordering Dr: Juan Diego Cantrell MD Date: 11/09/24 Location: EN Sex: F C Admitted: Test Reason : CP Blood Pressure : */* mmHG Vent. Rate : 66 BPM Atrial Rate : 66 BPM P-R Int : 160 ms QRS Dur : 84 ms QT Int : 404 ms P-R-T Axes : 6 -30 1 degrees QTcB Int : 423 ms Normal sinus rhythm Left axis deviation Low voltage QRS Abnormal ECG Confirmed by YOLY GOLDMAN, CAMELIA ([id number]), graphics editor NIRAV MEJIA ([id number]) on 11/15/2024 6:24:09 AM Referred By: Taty Julian Confirmed By: CAMELIA FREDERICK MD 11/15/24 0624 Date Laury Frederick MD CC: Dr. Juan Diego Cantrell MD; Dr. Taty Julian MD; Toño Curtis DO Signed Normal [facility] Bedside Glucoseon 11-09-2024 FINGERSTICK GLU 122 mg/dL High 74-106 [facility] Comment on above: Result Comment: JENNIFER VELARDEMATTHEW OF PATIENT CARE PER NURSING PROTOCOL Performed By: #### L 100.0100, L501.6710, L101.9900, L500.2500 #### [facility] Laboratory [address] [place], [address] Chest 1 View (Portable)on Chest 1 View (Portable) [facility] Imaging Services [address] [place] [address] Chest 1 View (Portable) MR#: [id number] Acct: [id number] Name: KRISTA CAMPBELL Rep #: [id number] : 1955 F 69 From: Arthur Brandon MD PCP: Dr. Taty Julian MD Status: DEP [facility] Study: Chest 1 View (Portable) Date of Exam: 11/09/24 Exam# [id number] Ordering Dr: Juan Diego Cantrell MD [id number] EXAM: XR CHEST, 1 VIEW CLINICAL INDICATION: CHEST PAIN TECHNIQUE: Frontal view of the chest. COMPARISON: 03/07/24 FINDINGS: LUNGS AND PLEURAL SPACES: Unremarkable. No consolidation or edema. No pneumothorax. No effusion. HEART: Unremarkable. Cardiac silhouette not enlarged. MEDIASTINUM: Central airways and mediastinal contour are unremarkable. BONES/JOINTS: Degenerative changes of the spine and acromioclavicular joints. No acute fracture. SOFT TISSUES: Unremarkable. RAD/Chest 1 View (Portable) IMPRESSION: No acute findings in the chest. Electronically Signed: Arthur Brandon MD at 17:04 EST , CC: Dr. Juan Diego Cantrell MD; Dr. Taty Julian MD 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: Signed Normal [facility] EGD Reporton 11-09-2024 EGD Report [facility] Medical Records Department [address] [place] [address] EGD Report MR#: [id number] Acct: [id number] Name: KRISTA CAMPBELL Rep #: [id number] : 1955 69 From: Toño Curtis DO PCP: Dr. Taty Julian MD Status:REG [facility] Patient Name: Krista Campbell Procedure Date: 11/09/2024 2:36 PM Date of : 1955 Age: 69 Procedure: Upper GI endoscopy Indications: For therapy of esophageal varices Providers: Toño Curtis DO Referring MD: Taty Julian Medicines: Monitored Anesthesia Care Patient Profile: This is a 69 year old female. Refer to note in patient chart for documentation of history and physical. Patient has symptoms. Her most recent EGD for treatment of bleeding was within the past six months. Complications: No immediate complications. Procedure: Pre-Anesthesia Assessment: - Prior to the procedure, a History and Physical was performed, and patient medications and allergies were reviewed. The patient is competent. The risks and benefits of the procedure and the sedation options and risks were discussed with the patient. All questions were answered and informed consent was obtained. Patient identification and proposed procedure were verified by the physician in the pre-procedure area. Mental Status Examination: alert and oriented. Airway Examination: normal oropharyngeal airway and neck mobility. Respiratory Examination: clear to auscultation. CV Examination: normal. Prophylactic Antibiotics: The patient does not require prophylactic antibiotics. Prior Anticoagulants: The patient has taken no anticoagulant or antiplatelet agents. ASA Grade Assessment: II - A patient with mild systemic disease. After reviewing the risks and benefits, the patient was deemed in satisfactory condition to undergo the procedure. The anesthesia plan was to use monitored anesthesia care (MAC). Immediately prior to administration of medications, the patient was re-assessed for adequacy to receive sedatives. The heart rate, respiratory rate, oxygen saturations, blood pressure, adequacy of pulmonary ventilation, and response to care were monitored throughout the procedure. The physical status of the patient was re-assessed after the procedure. After obtaining informed consent, the endoscope was passed under direct vision. Throughout the procedure, the patient's blood pressure, pulse, and oxygen saturations were monitored continuously. The gastroscope was introduced through the mouth, and advanced to the second part of duodenum. The upper GI endoscopy was accomplished without difficulty. The patient tolerated the procedure well. Scope In: 2:47:49 PM Scope Out: 2:54:23 PM Total Procedure Duration Time 0 hours 6 minutes 34 seconds Findings: Grade II varices were found in the middle third of the esophagus and in the lower third of the esophagus. They were 11 mm in largest diameter. Three bands were successfully placed with incomplete eradication of varices. Bleeding had stopped at the end of the procedure. Mild portal hypertensive gastropathy was found in the gastric body. Patchy mild inflammation characterized by granularity was found in the duodenal bulb. Biopsies were taken with a cold forceps for histology. Verification of patient identification for the specimen was done. Estimated blood loss was minimal. Impression: - Grade II esophageal varices. Incompletely eradicated. Banded. - Portal hypertensive gastropathy. - Chronic duodenitis. Biopsied. Recommendation: - Discharge patient to home. - Resume previous diet. - Continue present medications. - Await pathology results. - Repeat upper endoscopy in 4 months for surveillance. Procedure Code(s): --- Professional --- 36626, Esophagogastroduodenosco py, flexible, transoral; with band ligation of esophageal/gastric varices 27392, Esophagogastroduodenosco py, flexible, transoral; with biopsy, single or multiple CPT copyright 2021 [employer]. All rights reserved. The codes documented in this report are preliminary and upon financial advisor review may be revised to meet current compliance requirements. Toño Curtis DO 11/09/2024 2:59:07 PM This report has been signed electronically. Number of Addenda: 0 Note Initiated On: 11/09/2024 2:36 PM 11/09/24 1459 Date Toño Curtis DO Cosigner Signature: Date (if indicated) CC: Dr. Taty Julian MD; Toño Curtis DO Date Dictated: 11/09/24 7046 Date Transcribed: 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: DEVAN Signed Normal [facility] measurement at [facility] deOrdered By: Toño Friend on 11-09-2024 [facility] 122 mg/dL High 74-106 [facility] Comment on above: MANAGEMENT OF PATIEN T CARE PER NURSING PROTOCOL Glucose [Mass/Vol] 122 mg/dL High 74-106 [facility] Comment on above: MANAGEMENT OF PATIEN T CARE PER NURSING PROTOCOL MR/POSTOP.ANEon 11-09-2024 MR/POSTOP.[facility] Medical Records Department [address] [place] [address] Anesthesia Postop Eval I 11/09/24 1506 MR#: [id number] Acct: [id number] Name: KRISTA CAMPBELL Rep #: [id number] : 1955 69 From: Eder Mcrae PCP: Dr. Taty Julian MD Status:REG [facility] Y Race: C Location: [place] [address] Anesthesia: Postop Eval I Current Vital Signs Temperature: 98.3 F Pulse Rate: 83 Blood Pressure: 140/75 Respiratory Rate: 16 Pulse Ox: 99 Oxygen Delivery Method: Room Air Assessment Airway patent: Yes Spontaneous unlabored respirations: Yes Mental status: Awake and Calm nausea: No Vomiting: No Anesthesia Complication: No Fluid Hydration Crystalloid volume administer (ml): 30 Total IV fluid infused: 30 Progress Note Anesthesia document: Postop Eval 1 completed: Yes 11/09/24 1507 Date Eder Steinerigndrake Signature: Date CC: Signed Normal [facility] MR/[id number] 11-09-2024 MR/POSTOPAN2 [facility] Medical Records Department [address] [place] [address] Anesthesia Postop Eval II 11/09/24 1600 MR#: [id number] Acct: [id number] Name: KRISTA CAMPBELL Rep #: [id number] : 1955 69 From: Juan Diego Cantrell MD PCP: Dr. Taty Julian MD Status:REG SDC Y Race: C Location: [facility]17-1 Anesthesia Postop Eval I Sum Postop Eval Completion status Anesthesia document: Postop Eval 1 completed: Yes Anesthesia Postop Eval I Summary Anesthesia Postop Eval I Summary: Anesthesia Postop Eval I: Assessment Summary Airway patent Yes 11/09/24 15:07 [email or web address] Spontaneous unlabored Yes 11/09/24 15:07 [email or web address] respirations Mental status Awake,Calm 11/09/24 15:07 [email or web address] nausea No 11/09/24 15:07 [email or web address] Vomiting No 11/09/24 15:07 [email or web address] Anesthesia Postop Eval I: Fluid Summary Crystalloid volume administer 30 11/09/24 15:07 [email or web address] (ml) Colloids volume administered ( ml) Blood Product volume administered (ml) Total IV fluid infused 30 11/09/24 15:07 [email or web address] Anesthesia Postop Eval I: Summary Notes Anesthesia Complication No 11/09/24 15:07 [email or web address] Anesthesia Complication Comment: Post-operative progress note Anesthesia: Postop Eval II Evaluation Mental status: Awake Pain Level: 2 nausea: No Vomiting: No Progress Note Post-operative progress note: The patient complained of none radiating retrosternal chest pain. She stated that the pain was non-radiating. The patient had just undergone esophageal banding. CXR down post operatively was non-acute and clear. and EKG was obtained that was non-ischemic. The patient was given a single dose of 15 mg of Toradol. She was given strict return precautions that if the pain became any worse or radiated that she was to represent to the ER. She verbalized that she understood these instructions and was discharged from PACU. Complications Anesthesia Complication: No 11/09/24 1604 Date Juan Diego Cantrell MD Cosigner Signature: Date CC: Signed Normal [facility] Surgery Specimen Level [place] 11-09-2024 Surgery Specimen Level IV Patient Age/Sex Location Account Attending Physician KRISTA CAMPBELL 69/F EN [id number] Toño Curtis DO Specimen: [id number] Received: 11/09/24 Status: SADAF [place]uchamp Num: [id number] Spec Type: EGD BIOPSY Brennan Dr: Toño Curtis, DO HEADER OPERATION: EGD biopsy, esophageal banding PRE-OP DIAGNOSIS: Cirrhosis, esophageal varices, dysphagia TISSUE SUBMITTED: Duodenum biopsy MICROSCOPIC DIAGNOSIS Duodenum, biopsy: Fragments of duodenal mucosa, no pathologic diagnosis. RISHABH.mr 11/11/2024 MICROSCOPIC DESCRIPTION Slides are reviewed. GROSS DESCRIPTION Received in fixative is one container labeled with the patient's name and designated "Duodenum biopsy." The specimen consists of two irregular fragments of light carlson soft tissue that in aggregate measure 0.7 x 0.4 x 0.2 cm. The specimen is totally submitted in one cassette. ANIL. 11/10/2024 TC:4 CPT:17124 Patient Age/Sex Location Account Attending Physician KRISTA CAMPBELL 69/F EN [id number] Toño Curtis DO Signed (signature on file) Dr. Delfino Malhotra MD 11/11/24 1228 Normal [facility] Comment on above: Performed By: #### L 100.0100, L501.6710, L101.9900, L500.2500 #### [facility] Laboratory [address] [place], [address] SP/SP.FEESon 10-26-2024 SP/SP.FEES [facility] Speech Pathology [facility] [address] [place] [address] Fax REHABILITATION SERVICES PROGRESS NOTE MR#: [id number] Acct: [id number] Name: KRISTA CAMPBELL Rep #: [id number] : 1955 69 From: Amy Chavez Referring Dr.: Dr. Tima Worrell MD Status:REG RCR Insurance: MEDICARE PART A B KAMRYN DENSON Patient Information Date of Evaluation: 10/24/24 Time of Evaluation: 10:00 Diagnosis: mild oropharyngeal dysphagia Staff Providing this Care/Treatment:: SARBJIT Direct Billable Minutes: 120 History: Past Medical History:: History of GI bleed, History of diverticulitis, Gastric reflux, Former smoker, History of edema, Hypertension, Diabetes, Migraines, Back pain, History of steroid therapy, Thyroid disease, Gout, Arthritis, Anemia, High cholesterol Barium swallow on 07/25/24 09.18.24 EGD, grade II esophageal varices. Completely eradicated. Banded. Non-bleeding gastric ulcer with no stigma of bleeding. Biopsied. Portal hypertensive gastropathy. No gross lesions in the first portion of the duodenum. Lesser curvature ulcer biopsy, negative H.Pylori. Chronic ulcer with gastritis. Continue pantoprazole 40 mg BID, start Carafate TID x 8 weeks. Per report by radiologist. 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 EGD 07.06.24, grade II esophageal varices. Completely eradicated. Banded. Non-bleeding gastric ulcer with no stigma of bleeding. Biopsied. Portal hypertensive gastropathy. No gross lesions in the first portion of the duodenum. Lesser curvature ulcer biopsy, negative H.Pylori. Chronic ulcer with gastritis. Continue pantoprazole 40 mg BID, start Carafate TID x 8 weeks. Per GI report. Pt reported bilateral thyroid nodules. TX/DX History:: Yes Subjective: Subjective:: Pt arrived for her evaluation and was agreeable to the FEES procedure Current Diet: Drinks/Liquids:: Thin Foods:: Regular Medication Administration:: orally Respiratory Status Observation:: 98 sp O2 Dentition/Oral Hygiene: Observations:: WFL Vocal Quality: Observations:: WNL Cognition: Observations:: WNL Position During FEES: Position During FEES:: Upright Location: In Chair Fiberoptic Endoscope: Size: 3.4 mm Nare Used:: Right Anatomy: Velum Movement: Yes and Symmetrical Nasopharynx Tissue Description: [place] and Moist Secretions: Description:: Thin and Clear Location:: Nasopharynx, Oropharynx and Hypopharynx Phonation: Arytenoid Adduction: WNL Vocal Fold Adduction: WNL Penetration-Aspiration Scale Penetration-Aspiration Scale Thin Liquids by Single Cup Food/Drink Provided:: water Swallow Onset Location:: Pyriform Sinuses PAS Score: PAS Score *1 Comments:: min residue intermittent in the vallecula and pyriform sinus', other trials had no residue Thin Liquids by Sequential Cup Food/Drink Provided:: water Swallow Onset Location:: Vallecula Thin Liquids by Single Straw Food/Drink Provided:: water Swallow Onset Location:: Vallecula PAS Score: PAS Score *1 Puree Textures Food/Drink Provided:: pudding Swallow Onset Location:: Vallecula PAS Score: PAS Score *1 Comments:: min residue - cleared I by a second swallow Minced Moist Textures Food/Drink Provided:: whipped jello Swallow Onset Location:: Tongue Base PAS Score: PAS Score *1 Comments:: min residue, I cleared by second swallow Soft Bite Sized Textures Food/Drink Provided:: peaches in liquid Swallow Onset Location:: Pyriform Sinuses PAS Score: PAS Score *1 Comments:: liquid spilled to the pyriform min residue of peaches in the vallecula - I cleared by a 2nd swallow Easy to Chew Textures Food/Drink Provided:: cheese Swallow Onset Location:: Vallecula PAS Score: PAS Score *1 Comments:: mod residue in vallecula added during 2nd bite - cleared with a second swallow and liquid wash Regular Textures Food/Drink Provided:: Frosted mini wheats Swallow Onset Location:: Vallecula PAS Score: PAS Score *1 Comments:: mod residue in the vallecula - partially cleared by a second swallow. Cleared with a liquid wash. Diagnosis/Impressions Diagnosis: mild oropharyngeal dysphagia Swallowing Impairment: Premature Posterior Loss and Decreased Pharyngeal Contraction Recommendations Diet: Regular Textures and Thin Liquids Medication Administration:: Whole with liquids Compensatory Strategies: Small Bites, Multiple Swallows, Alternate bites/solids and sips/liquids, Sitting upright and Minimize/decrease distractions Recommend Repeat Instrumental Swallow Assessment: TBD Comments: *2-3 bites per sip with soft textures 1 bite per sip with dry textures Need for Skilled Speech Therapy Services: Yes Education Compl (more content not included)... Normal [facility] ABD Limited w/ Elastographyo n 10-14-2024 ABD Limited w/ Elastography [facility] Imaging Services [address] [place], [place] [id number] ABD Limited w/ Elastography MR#: [id number] Acct: [id number] Name: KRISTA CAMPBELL Rep #: [id number] : 1955 F 69 From: Mao dixon MD PCP: Dr. Taty Julian MD Status: REG CLI Study: ABD Limited w/ Elastography Date of Exam: 09/19 05/11 Exam# [id number] Ordering Dr: Tima Worrell MD [id number] STUDY: ABDOMINAL ULTRASOUND - RIGHT UPPER QUADRANT; ELASTOGRAPHY REASON FOR VISIT: Female, 69 years old. Cirrhosis. Portal hypertension. TECHNIQUE: Ultrasound evaluation of the right upper quadrant was performed with real-time and static alfonso-scale imaging. Point quantification shear wave elastography was performed (eRelyx). TECHNICAL QUALITY: Adequate. COMPARISON: Comparison is made with prior study dated April 02, 2023. FINDINGS: Liver: The liver measures 16.8 cm. There is increased echogenicity consistent with fatty infiltration. The bile ducts are within normal limits. There is hepatic color flow. The direction of portal flow is hepatopetal. There is no demonstrated mass lesion. Median liver stiffness measured 10 kPa. Gallbladder: Normal distended gallbladder. The gallbladder wall measures 2.7 mm. There is a negative sonographic Nieves''s sign. There is no pericholecystic fluid. There are no gallstones. Common Bile Duct (C.B.D.): The common bile duct measures 5.0 mm. Pancreas: There is normal echogenicity of the visualized pancreas. There is no demonstrated pancreatic mass or cyst. Right Kidney: Normal size of the right kidney. The right kidney measures 10.4 cm x 5.2 cm x 4.0 cm. Normal renal cortex. The right cortex measures 1.0 cm. There is no demonstrated renal mass or cyst. There is no right hydronephrosis. IMPRESSION: 1. Liver stiffness measures 10 kPa compatible with F2-F3 (Mild to moderate liver fibrosis) Metavir score. Electronically Signed: Mao Glez MD at 14:41 EST , [id number] STUDY: ABDOMINAL ULTRASOUND - LEFT UPPER QUADRANT REASON FOR EXAM: Female, 69 years old. Cirrhosis, portal HTN -- Including spleen TECHNIQUE: Transabdominal ultrasound was performed with real-time and static alfonso scale imaging. TECHNICAL QUALITY: Adequate. COMPARISON: None. FINDINGS: Spleen: There is splenomegaly. The spleen measures 13.3 cm x 5.2 cm x 6.3 cm. US/ABD Limited w/ Elastography IMPRESSION: Mild splenomegaly. Electronically Signed: Mao Glez MD at 14:41 EST , CC: Dr. Taty Julian MD; Dr. Tima Worrell MD 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: Signed Normal [facility] Thyroidon 10-14-2024 Thyroid [facility] Imaging Services [address] [place], [place] [address] Thyroid MR#: [id number] Acct: [id number] Name: KRISTA CAMPBELL Rep #: [id number] : 1955 F 69 From: Francisco Ferraro MD PCP: Dr. Taty Julian MD Status: REG CLI Study: Thyroid Date of Exam: 10/14/24 Exam# [id number] Ordering Dr: Tima Worrell MD [id number] STUDY: THYROID ULTRASOUND REASON FOR EXAM: Female, 69 years old. Palpable enlarged thyroid TECHNIQUE: Ultrasound evaluation of the thyroid was performed with real-time and static alfonso-scale imaging. COMPARISON: None. FINDINGS: RIGHT LOBE: The right lobe of the thyroid gland measures 3.3 x 0.9 x 1.3 cm. There is a homogeneous echotexture. There is a hypoechoic 4 mm well-defined nodule This nodule is solid or almost completely solid, hypoechoic, glskj-iljg-rkkw, smoothly marginated and contains no echogenic foci. TI-RADS points: 4. TI-RADS category: TR4. This nodule is moderately suspicious but no FNA or follow-up is necessary given the small size of this nodule. LEFT LOBE: The left lobe of the thyroid gland measures 3.8 x 1.2 x 1.3 cm. There is a homogeneous echotexture. There is a solid hypoechoic 0.3 cm well-defined nodule This nodule is solid or almost completely solid, hypoechoic, frplk-jpwn-qpur, smoothly marginated and contains no echogenic foci. TI-RADS points: 4. TI-RADS category: TR4. This nodule is moderately suspicious but no FNA or follow-up is necessary given the small size of this nodule. ISTHMUS: The isthmus measures 0.2 cm. The regional lymph nodes are normal. US/Thyroid IMPRESSION: Normal sized homogeneous thyroid gland with bilateral well-defined hypoechoic solid nodules. Categorization and follow-up as described above. Electronically Signed: Keanu Ferraro MD at 8:26 EST , CC: Dr. Taty Julian MD; Dr. Tima Worrell MD 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: Signed [facility] 10-04-2024 [facility] Telephone (FAMPWS) -------- KRISTA CAMPBELL ([id number]) 1955 F Date Time Provider Department 10/04/24 [facility]UL[facility] During your visit today, we recorded the following information about you: Vivien Sharma MA 10/04/2024 9:27 AM Signed Office received order for pt to have Outpatient swallowing-eval and treat and FEES done for dysphagia at [facility]. Orders needs signed and faxed. EMILIANO Masters Rilee, MA 10/04/2024 12:01 PM Signed Order signed and faxed back to [facility] at [phone]. Carmen Mckeon MA Allergies As of Date: 10/04/2024 Noted Allergy Reaction ZQMYYLX-ZGF-TEL REDUCTASE INHIBIT*03/12/2023 17 - Myalgia Comments: Knees shake, weak and joints ache CIPRO (CIPROFLOXACIN) 08/28/2009 4 - Hives METRONIDAZOLE 08/28/2009 4 - Hives PENICILLINS 07/16/2005 2 - Rash Comments: Age 19 -- rash all over, hives SULFA (SULFONAMIDE ANTIBIOTICS) 07/16/2005 2 - Rash Date Reviewed: 06/07/2024 Reviewed by: Carmen Mckeon MA - Fully Assessed Reason for Visit: Orders [681] Cmt: [facility]-swallowing eval and tx for dysphagia Prescriptions as of 10/04/2024 - levothyroxine (SYNTHROID) 88 mcg tablet Take 1 tablet by mouth once daily. Take on empty stomach. - rifAXIMin (XIFAXAN) 550 mg tablet Take 550 mg by mouth two times a day. - spironolactone (ALDACTONE) 25 mg tablet Take 25 mg by mouth once daily. Take half pill daily - fexofenadine (JACQUELINE ALLERGY) 180 mg tablet Take 1 tablet by mouth once daily. - metFORMIN (GLUCOPHAGE) 1,000 mg tablet Take 1 tablet by mouth two times a day with meals. - pantoprazole DR (PROTONIX) 40 mg tablet Take 1 tablet by mouth two times a day. - ezetimibe (ZETIA) 10 mg tablet Take 1 tablet by mouth once daily. - dulaglutide (TRULICITY) 3 mg/0.5 mL pen injector Inject 3 mg subcutaneously one time a week. - nadolol (CORGARD) 40 mg tablet Take 1 tablet by mouth once daily. - allopurinol (ZYLOPRIM) 100 mg tablet Take 1 tablet by mouth once daily. - ferrous sulfate 325 mg (65 mg iron) tablet Take 1 tablet by mouth once daily. - Magnesium 250 mg tab Take 1 tablet by mouth twice daily. - lactulose 10 gram/15 mL solution Take 30 mL by mouth. - gabapentin (NEURONTIN) 400 mg capsule Take 1 capsule by mouth twice daily. - vitamin C-biotin (FYUJ-KLCD-QJUXC, VIT C-BIOTIN,) 50 mg -1,250 mcg chew Take 2 tablets by mouth once daily. - coenzyme Q10 (CO Q-10) 100 mg cap capsule Take 2 capsules by mouth once daily. - EMGALITY PEN 120 mg/mL pen Inject 120 mg subcutaneously once every month. - fluorometholone (FML LIQUID FILM) 0.1 % ophthalmic suspension - cranberry fruit extract (CRANBERRY ORAL) Take by mouth. - rizatriptan (MAXALT) 10 mg tablet - Apple Cider Vinegar 300 mg tab Take 1 tablet by mouth twice daily. - MV-MN/FOLIC ACID/CALCIUM/VIT K (ONE-A-DAY WOMEN'S 50 PLUS ORAL) Take by mouth. - L.ACID/L.CASEI/B.BIF/B.L ON/FOS (PROBIOTIC BLEND ORAL) Take by mouth. - cycloSPORINE (RESTASIS) 0.05 % ophthalmic emulsion Use 1 Drop in both eyes twice daily. - ERYTHROMYCIN BASE (ERYTHROMYCIN OPHTHALMIC) Use in eyes. - VIT C/NARCISA AC/LUT/COPPER/ZNOX (PRESERVISION LUTEIN ORAL) Take 1 tablet by mouth twice daily. Problem List As Of Date 10/04/2024 Noted Resolved Intractable migraine without aura [G43.019] 09/23/2006 1.8.1 TRANSFORMED MIGRAINE W/ MEDICATION OVERUS*09/23/2006 Abnormal mammogram, unspecified [R92.8] 06/14/2007 08/20/2011 DIFFUS CYSTIC MASTOPATHY [N60.19] 06/05/2008 Nonspecific abnormal finding in stool contents *01/09/2010 08/20/2011 Benign Neoplasm of Colon [D12.6] 01/09/2010 Hypothyroidism [E03.9] 08/20/2011 Elevated LFTs [R79.89] 08/20/2011 Obesity [E66.9] 08/20/2011 Back pain [M54.9] 11/08/2014 Screening for colon cancer [Z12.11] 03/27/2016 03/27/2016 Chronic left shoulder pain [M25.512, G89.29] 01/07/2017 Arthralgia of both elbows [M25.521, M25.522] 01/07/2017 Type 2 diabetes mellitus without complication, *12/02/2017 Steatosis of liver [K76.0] 03/10/2018 Epigastric pain [R10.13] 03/24/2018 Globus sensation [R09.A2] 03/24/2018 Gout [M10.9] 06/01/2019 Impingement syndrome of left shoulder [M75.42] 11/28/2020 Hepatic cirrhosis, unspecified hepatic cirrhosi*03/12/2023 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 [place] [address] / REHABILITATION SERVICES INITIAL EVALUATION MR#: [id number] Acct: [id number] Name: KRISTA CAMPBELL Rep #: [id number] : 1955 69 From: Javier Padilla M.A., [facility] Referring Dr.: Dr. Tima Worrell MD Status: RE G RCR Insurance: MEDICARE PART A B ANTH Visit History Visit Info Date of Eval: 09/30/24 Visit: 1 Seasonal Package Handler: SARBJIT History Attending Doctor: Referring Doctor: Reason for Referral: DYSPHAGIA. RX HERE Medical Diagnosis: Dysphagia Previous speech therapy: No Other Relevant Medical History/Diagnoses/Surger y: History of GI bleed, History of diverticulitis, Gastric reflux, Former smoker, History of edema, Hypertension, Diabetes, Migraines, Back pain, History of steroid therapy, Thyroid disease, Gout, Arthritis, Anemia, High cholesterol Barium swallow on 07/25/24 09.18.24 EGD, grade II esophageal varices. Completely eradicated. Banded. Non-bleeding gastric ulcer with no stigma of bleeding. Biopsied. Portal hypertensive gastropathy. No gross lesions in the first portion of the duodenum. Lesser curvature ulcer biopsy, negative H.Pylori. Chronic ulcer with gastritis. Continue pantoprazole 40 mg BID, start Carafate TID x 8 weeks. Per report by radiologist. 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 EGD 07.06.24, grade II esophageal varices. Completely eradicated. Banded. Non-bleeding gastric ulcer with no stigma of bleeding. Biopsied. Portal hypertensive gastropathy. No gross lesions in the first portion of the duodenum. Lesser curvature ulcer biopsy, negative H.Pylori. Chronic ulcer with gastritis. Continue pantoprazole 40 mg BID, start Carafate TID x 8 weeks. Per GI report. Medications related to this diagnosis: pantoprazole 40 mg twice daily, lactulose 30 mill once daily, Carvedilol, rifaximin: Medications on hold by GI physician: cranberry, coenzyme Q10, apple cider vinegar Smoking Status: Former smoker Diagnosis Diagnosis: Dysphagia Pain Is pain an issue with your current prescribed condition?: Yes Personal Preferred language: Omani Patient Allergies Allergies Allergies: Allergies ciprofloxacin (From Cipro) Allergy (Verified 07/15/24 09:57) Other ciprofloxacin HCl (From Cipro) Allergy (Verified 07/15/24 09:57) Other metronidazole Allergy (Verified 07/15/24 09:57) Other Penicillins (PCN) Allergy (Verified 07/15/24 09:57) Other Sulfa (Sulfonamide Antibiotics) Allergy (Verified 07/15/24 09:57) Rash Snoasjr-QWZ-JpJ Reductase Inhibitor Adverse Reaction (Verified 07/15/24 09:57) Other cant walk Subjective Dysphagia Symptoms Reported Symptoms/Problems with: Choking, Difficulty Swallowing Solids, Difficulty Swallowing Liquids, Difficulty Swallowing Pills and Food gets stuck Current Diet Solids Current Diet: Regular Other: small bites for meats Current Diet Liquids Current Liquids: Thin Objective Dysphagia Administered by Administered by: Self Thin Liquids Administred via: Cup Soft Bite sized (Mechanical) Administered via: Cup Oral Preparation: WNL Oral Transit: WNL Bolus clearance: fully cleared Gagging: No Cough: none observed/unable to assess Pharyngeal phase: suspect pharyngeal deficits Patient Report: No deficits reported today. Regular Oral Preparation: WNL Oral Transit: WNL Bolus clearance: fully cleared Gagging: No Cough: none observed/unable to assess Patient Report: Patient reported no difficulty today. Comments: Swallowing deficits are intermittent with patient reporting several times a week she will have coughing episodes on foods or liquids. Recently, she had one when she started chewing gum. Swallowing Impairment Contributing Factors to Swallowing Impairment: Other Other: possible pharyngeal deficits. Recommendations Swallowing Treatment: Yes Diet Texture Recommendations Solids: Regular (Level 7) Liquids: Thin (Level 0) Safety Saftey Precautions/Swallowing Recommendations (Check all that Apply): Upright Position at Least 30 Minutes After Meals and Small Sips Bites when Eating Results Swallowing Within Normal Limits: No Swallowing Diagnosis: Dysphagia Unspecified (R13.10) Subjective Oral Motor Subjective Dentures ill fitting: No Objective Oral Motor Oral Status Dentition: Upper Dentures Additional: Natural teeth Labial Impairment: WNL Closure: WNL Pucker: WNL Retraction: WNL Alternating Pucker/Retraction: WNL Involuntary Movement noted: No Lingual Impairment: WNL Protrusion: WNL Retraction: WNL Lateralization: WNL Involuntary Movement: No Jaw I (more content not included)... Normal [facility] Gastroenterology Visit Repor ton 09-28-2024 Gastroenterology Visit Report [facility] Gastroenterology [address] [place] [address] OFFICE VISIT Date of Service: 09/28/24 MR#: [id number] Acct: [id number] Name: KRISTA CAMPBELL Rep #: [id number] : 1955 Provider: Dr. Tima mansfield MD Age/Sex: 69/F Location: [facility] [place] Status: Signed Intake Vital Signs 07/15/24 10:06 09/28/24 09:16 09/28/24 09:36 Height 4 ft 11 in 4 ft 11 in 4 ft 11 in Weight: 156 lb 154 lb BMI 31.5 31.1 BP 112/73 107/59 L Blood Pressure Location Lt brachial Position Sitting Respiration 16 Pulse 80 77 Pulse Source Monitor Temp 97.7 F L Temp Source Temporal Pulse Oximetry (%) 96 97 Oxygen Delivery Method room air Intake Visit Reasons: 3 M FU Chief Complaint: Follow up, Cirrhosis Allergies ciprofloxacin (From Cipro) Allergy (Verified 07/15/24 09:57) Other ciprofloxacin HCl (From Cipro) Allergy (Verified 07/15/24 09:57) Other metronidazole Allergy (Verified 07/15/24 09:57) Other Penicillins (PCN) Allergy (Verified 07/15/24 09:57) Other Sulfa (Sulfonamide Antibiotics) Allergy (Verified 07/15/24 09:57) Rash Jkompdb-YKL-NmZ Reductase Inhibitor Adverse Reaction (Verified 07/15/24 09:57) Other Have you fallen in the past year?: No [facility] Medical History Back pain Wears glasses History of steroid therapy Thyroid disease Gout Arthritis Anemia High cholesterol History of GI bleed History of diverticulitis Gastric reflux Former smoker History of edema History of echocardiogram History of stress test Hypertension Diabetes Migraines Surgical History History of esophagogastroduodenosco py (EGD) Hx of esophagogastroduodenosco py Hx of tonsillectomy History of Status post left foot surgery Family History Grandfather Diabetes Grandmother Diabetes Father Heart problem Mother CVA (cerebral vascular accident) Social History Smoking Status: Former smoker alcohol intake: never substance use type: does not use HPI HPI Chief Complaint: Follow up, Cirrhosis Details: KRISTA CAMPBELL, is a 69 F who presents to the office for cirrhosis follow-up. *[facility] hospitalization 4.12.11-4.03.10 for upper GIB with hematemesis with nausea and weakness. GI consulted 4... CT abd/pel 4.. hepatomegaly with cirrhotic changes; stool throughout colon; enhancing nodule of duodenum [id number]. EGD 4.. 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 No specimens collected MRI 4.. cirrhotic liver with splenomegaly; duodenal enhancement measuring 1.5cm. OV 6.2.23 with acidic stomach for which she has used PPI for 10 years. With lactulose BM daily, loose. reports forgetfulness. Denies sleep disturbance, jaundice, bleeding, pruritis. US 6.15.23 without ascites. EGD 6..23 Grade II varices of middle/lower third esophagus, banded; small hiatal hernia; erythema with bleeding on lesser curvature of stomach, gastritis; 5mm mucosal polypoid OV 7.. with improvement of nausea frequency. She did reduce lactulose QD with 2-3 BM/day. Confusion/brain fog has improved per . Notes increased cough with liquids but not consistently. Continues with nadolol and PPI EGD 08.10.23- Grade II esophageal varices, incompletely eradicated. Banded; small amount of food in stomach. No specimines collected. OV 11..23- Pt is doing well since last visit. Reports intermittent postprandial RUQ pain and nausea. Takes Lactulose QD with 2-3 complete BM a day. Denied any edema, confusion/ brain fog or issues with sleep. Continues PPI with minimal heartburn. MELD Na score is 8. C/o mild upper quadrant abdominal pain adjacent with the food on lactulose but lactulose makes her more nauseous but no vomiting, burping and gaseous feeling. OV 2.14.24- Nausea, indigestion, and upper mid to LUQ abdomen abdominal pain after eating certain foods in the evening, attempting keep away from triggers. She states that food stays longer with burping and air/gas. Occasional Tums PRN with success. Nausea after taking lactulose improved. Loose stool about once daily. She takes lactulose 30 mL once daily. Mild swelling in feet. Gabapentin prescribed by neurologist effective sleep aide. Denies confusion, brain fog and BLE edema. Received correspondence from medical insurance prior auth needed Xifaxan through [employer]. CT abd/pel w/wo 12.16.24- Hepatomegaly and diffuse fatty infiltration of the liver Gastric emptying study 5.1.24- Abnormal, 102.96 mins 5.7.24 MELD na- 7 OV 5.20.24- Pt well since last visit. Con (more content not included)... Normal [facility] KILEY w/ Reflex Mult Confirmon 09-21-2024 KILEY,DIRECT Negative Normal Negative [facility] Comment on above: Result Comment: Perf ormed at: - [facility] [address] [id number] Radio Mechanic Apprentice: Lucho Bonds PhD, Phone: [phone] Performed By: #### M [id number] #### [facility] Laboratory [address] [place], [address] [id number] DOrdered By: Elsa Worrell on 09-20-2024 Vitamin D 25-Hydroxy 31.8 ng/mL [facility] Comment on above: Vitamin D 25(OH) Sta tus Range Deficiency <20 ng/mL (50nmol/L) Insufficiency 20 - 30 ng/mL (50 - 75 nmol/L) Sufficiency 30 - 100 ng/mL (75 - 250 nmol/L) Toxicity >100 ng/mL (>250 nmol/L) KILEY serumOrdered By: Tima Worrell on 09-20-2024 Anti-Nuclear Antibody Screen Negative Negative [facility] Comment on above: Performed at: [address] [id number] Director: Lucho Bonds PhD, Phone: [phone] Absolute neutrophil countOrd ered By: Tima Worrell on 09-20-2024 Neutrophils (Bld) [#/Vol] 3.4 10*3/uL 2.0-7.7 [facility] Albumin to globulin ratioOrd ered By: Tima Worrell on 09-20-2024 Albumin/Globulin [Mass ratio] 1.1 {ratio} 0.9-2.4 [facility] Basophil percentageOrdered B y: Tima Worrell on 09-20-2024 Basophils/100 WBC (Bld) 1.1 % High 0-1 [facility] Bilirubin, totalOrdered By: Tima Worrell on 09-20-2024 Bilirubin [Mass/Vol] 0.50 mg/dL 0.20-1.00 [facility] Comment on above: For patients on eltr ombopag therapy, use of Dimension Bronson TBIL is not recommended. Blood urea nitrogen (BUN)/cr eatinine ratioOrdered By: Tima Worrell on 09-20-2024 Urea nitrogen/Creatinine [Mass ratio] 16.2 mg/mg 10-20 [facility] CBC W/Diff, Automatedon Absolute Lymph 1.20 X10 3/uL Normal 0.83-4.51 [facility] Comment on above: Performed By: #### L 100.0100, L3100.5450, L500.4100, L300.3900, L501.9985, L500.4050, L506.1000 ####[facility] [address] [place], [address] Absolute Neut 3.4 X10 3/uL Normal 2.0-7.7 [facility] Comment on above: Performed By: #### L 100.0100, L3100.5450, L500.4100, L300.3900, L501.9985, L500.4050, L506.1000 ####[facility] [address] [place], [address] Basophils/100 WBC (Bld) 1.1 % High 0-1 [facility] Comment on above: Performed By: #### L 100.0100, L3100.5450, L500.4100, L300.3900, L501.9985, L500.4050, L506.1000 ####[facility] [address] [place], [address] Eosinophils/100 WBC (Bld) 5.5 % High 0-5 [facility] Comment on above: Performed By: #### L 100.0100, L3100.5450, L500.4100, L300.3900, L501.9985, L500.4050, L506.1000 ####[facility] [address] [place], [address] Erythrocyte distribution width (RBC) [Ratio] 15.6 % High 11.6-14.6 [facility] Comment on above: Performed By: #### L 100.0100, L3100.5450, L500.4100, L300.3900, L501.9985, L500.4050, L506.1000 ####[facility] [address] [place], [address] Hematocrit (Bld) [Volume fraction] 34.1 % Low 37-47 [facility] Comment on above: Performed By: #### L 100.0100, L3100.5450, L500.4100, L300.3900, L501.9985, L500.4050, L506.1000 ####[facility] [address] [place], [address] Hemoglobin (Bld) [Mass/Vol] 9.8 g/dL Low 12.0-15.0 [facility] Comment on above: Performed By: #### L 100.0100, L3100.5450, L500.4100, L300.3900, L501.9985, L500.4050, L506.1000 ####[facility] [address] [place], [address] IG% 0.700 Normal 0.0-0.9 [facility] Comment on above: Result Comment: IG% - Immature Granulocytes (promyelocytes, myelocytes and metamyelocytes) > 1% indicates that a LEFT SHIFT is Present. Performed By: #### L 100.0100, L3100.5450, L500.4100, L300.3900, L501.9985, L500.4050, L506.1000 ####[facility] [address] [place], [address] Lymphocytes/100 WBC (Bld) 22.1 % Normal 19-41 [facility] Comment on above: Performed By: #### L 100.0100, L3100.5450, L500.4100, L300.3900, L501.9985, L500.4050, L506.1000 ####[facility] [address] [place], [address] MCH (RBC) [Entitic mass] 25.3 pg Low 27.0-32.0 [facility] Comment on above: Performed By: #### L 100.0100, L3100.5450, L500.4100, L300.3900, L501.9985, L500.4050, L506.1000 ####[facility] [address] [place], [address] MCHC (RBC) [Mass/Vol] 28.7 g/dL Low 32-36 [facility] Comment on above: Performed By: #### L 100.0100, L3100.5450, L500.4100, L300.3900, L501.9985, L500.4050, L506.1000 ####[facility] [address] [place], [address] MCV (RBC) [Entitic vol] 87.9 fL Normal 81-99 [facility] Comment on above: Performed By: #### L 100.0100, L3100.5450, L500.4100, L300.3900, L501.9985, L500.4050, L506.1000 ####[facility] [address] [place], [address] Monocytes/100 WBC (Bld) 7.2 % Normal 0-10 [facility] Comment on above: Performed By: #### L 100.0100, L3100.5450, L500.4100, L300.3900, L501.9985, L500.4050, L506.1000 ####[facility] [address] [place], [address] Neutrophils/100 WBC (Bld) 63.4 % Normal 47-70 [facility] Comment on above: Performed By: #### L 100.0100, L3100.5450, L500.4100, L300.3900, L501.9985, L500.4050, L506.1000 ####[facility] [address] [place], [address] Nucleated RBC (Bld) [#/Vol] 0 10*3/uL Normal 0-5 [facility] Comment on above: Performed By: #### L 100.0100, L3100.5450, L500.4100, L300.3900, L501.9985, L500.4050, L506.1000 ####[facility] [address] [place], [address] Platelet mean volume (Bld) [Entitic vol] 11.0 fL Normal 6.2-12.0 [facility] Comment on above: Performed By: #### L 100.0100, L3100.5450, L500.4100, L300.3900, L501.9985, L500.4050, L506.1000 ####[facility] [address] [place], [address] Platelets (Bld) [#/Vol] 106 10*3/uL Low 150-450 [facility] Comment on above: Performed By: #### L 100.0100, L3100.5450, L500.4100, L300.3900, L501.9985, L500.4050, L506.1000 ####[facility] [address] [place], [address] RBC (Bld) [#/Vol] 3.88 10*6/uL Low 4.2-5.4 [facility] Comment on above: Performed By: #### L 100.0100, L3100.5450, L500.4100, L300.3900, L501.9985, L500.4050, L506.1000 ####[facility] [address] [place], [address] RDW SD 49.3 fl High 35.1-43.9 [facility] Comment on above: Performed By: #### L 100.0100, L3100.5450, L500.4100, L300.3900, L501.9985, L500.4050, L506.1000 ####[facility] [address] [place], [address] WBC (Bld) [#/Vol] 5.4 10*3/uL Normal 4.4-11.0 [facility] Comment on above: Performed By: #### L 100.0100, L3100.5450, L500.4100, L300.3900, L501.9985, L500.4050, L506.1000 ####[facility] [address] [place], [address] Carbon dioxide measurementOr dered By: Tima Worrell on 09-20-2024 CO2 [Moles/Vol] 25.0 mmol/L 21.0-32.0 [facility] Centromere B antibody assayO rdered By: Tima Worrell on 09-20-2024 Centromere B Antibody Not Reportable [facility] Chloride measurementOrdered By: Tima Worrell on 09-20-2024 Chloride [Moles/Vol] 103 mmol/L 98-107 [facility] Comprehensive Metabolic Prof ilon 09-20-2024 Albumin [Mass/Vol] 4.0 g/dL Normal 3.2-5.0 [facility] Comment on above: Performed By: #### M 100.7900 #### [facility] [address] [place], [address] Albumin/Globulin [Mass ratio] 1.1 {ratio} Normal 0.9-2.4 [facility] Comment on above: Performed By: #### M 100.7900 #### [facility] [address] [place], [address] ALK P 95 U/L Normal 45-117 [facility] Comment on above: Performed By: #### M 100.7900 #### [facility] [address] [place], [address] ALT [Catalytic activity/Vol] 29 U/L Normal 13-56 [facility] Comment on above: Performed By: #### M 100.7900 #### [facility] [address] [place], [address] AST [Catalytic activity/Vol] 30 U/L Normal 15-37 [facility] Comment on above: Performed By: #### M 100.7900 #### [facility] [address] [place], [address] Bilirubin [Mass/Vol] 0.50 mg/dL Normal 0.20-1.00 [facility] Comment on above: Result Comment: For patients on eltrombopag therapy, use of Dimension Bronson TBIL is not recommended. Performed By: #### M 100.7900 #### [facility] [address] [place], [address] BUN/CRE 16.2 RATIO Normal 10-20 [facility] Comment on above: Performed By: #### M 100.7900 #### [facility] [address] [place], [address] CA,Total 9.3 mg/dL Normal 8.5-10.1 [facility] Comment on above: Performed By: #### M 100.7900 #### [facility] [address] [place], [address] Chloride [Moles/Vol] 103 mmol/L Normal 98-107 [facility] Comment on above: Performed By: #### M 100.7900 #### [facility] [address] [place], [address] CO2 [Moles/Vol] 25.0 mmol/L Normal 21.0-32.0 [facility] Comment on above: Performed By: #### M 100.7900 #### [facility] [address] [place], [address] Creatinine [Mass/Vol] 0.74 mg/dL Normal 0.55-1.02 [facility] Comment on above: Result Comment: The validity of the calculated GFR GFRAA in patients over 70 years has not been determined. Clinical correlation is essential. Performed By: #### M 100.7900 #### [facility] [address] [place], [address] EST GFR - AA 100 mL/min Normal >60 [facility] Comment on above: Result Comment: Afri can Czech GFR Calc Performed By: #### M 100.7900 #### [facility] [address] [place], [address] GAP 10 Normal 5-15 [facility] Comment on above: Performed By: #### M 100.7900 #### [facility] [address] [place], [address] GFR/1.73 sq M.predicted among non-blacks MDRD (S/P/Bld) [Vol rate/Area] 82 mL/min/{1.73_m2} Normal >60 [facility] Comment on above: Result Comment: Non- GFR Calc Performed By: #### M 100.7900 #### [facility] [address] [place], [address] Globulin (S) [Mass/Vol] 3.8 g/dL Normal 2.2-4.2 [facility] Comment on above: Performed By: #### M 100.7900 #### [facility] [address] [place], [address] Glucose [Mass/Vol] 195 mg/dL High 74-106 [facility] Comment on above: Result Comment: Fast ing Glucose result greater than or equal to 126 mg/dL suggests DIABETES MELLITUS per A.D.A. criteria. Performed By: #### M 100.7900 #### [facility] [address] [place], [address] Potassium [Moles/Vol] 3.8 mmol/L Normal 3.5-5.1 [facility] Comment on above: Performed By: #### M 100.7900 #### [facility] [address] [place], [address] Sodium [Moles/Vol] 138 mmol/L Normal 136-145 [facility] Comment on above: Performed By: #### M 100.7900 #### [facility] [address] [place], [address] T PROT 7.8 g/dL Normal 6.4-8.2 [facility] Comment on above: Performed By: #### M 100.7900 #### [facility] [address] [place], [address] Urea nitrogen [Mass/Vol] 12 mg/dL Normal 7-18 [facility] Comment on above: Performed By: #### M 100.7900 #### [facility] [address] [place], [address] DNA double strand Ab Qn (S)O rdered By: Tima Worrell on 09-20-2024 Anti-Double Strand DNA Antibody Not Reportable [facility] Eosinophil percentageOrdered By: Tima Worrell on 09-20-2024 Eosinophils/100 WBC (Bld) 5.5 % High 0-5 [facility] Erythrocyte distribution wid th ratioOrdered By: Tima Worrell on 09-20-2024 Erythrocyte distribution width (RBC) [Ratio] 15.6 % High 11.6-14.6 [facility] Erythrocyte distribution wid th standard deviationOrdered By: Tima Worrell on 09-20-2024 Erythrocyte distribution width (RBC) [Entitic vol] 49.3 fL High 35.1-43.9 [facility] Estimated glomerular filtrat ion rate (GFR) AmericanOrdered By: Tima Worrell on 09-20-2024 Estimated GFR (MDRD) Amer 100 mL/min >60 [facility] Comment on above: GFR Calc Glomerular filtration rate ( GFR) estimationOrdered By: Tima Worrell on 09-20-2024 Estimated GFR (MDRD) Non-Af Amer 82 mL/min >60 [facility] Comment on above: Non- GFR Calc Glucose measurementOrdered B y: Tima Worrell on 09-20-2024 Glucose [Mass/Vol] 195 mg/dL High 74-106 [facility] Comment on above: Fasting Glucose resu lt greater than or equal to 126 mg/dL suggests DIABETES MELLITUS per A.D.A. criteria. Hematocrit Auto (Bld) [Volum e fraction]Ordered By: Tima Worrell on 09-20-2024 Hematocrit (Bld) [Volume fraction] 34.1 % Low 37-47 [facility] Hemoglobin A1con 09-20-2024 HbA1c (Bld) [Mass fraction] 6.5 % High 3.8-5.6 [facility] Comment on above: Result Comment: Norm al < 5.7 % Prediabetic 5.7 - 6.4 % Diabetic >or= 6.5 % Please note range changes. Performed By: #### M 100.7900 #### [facility] [address] [place], [address] Hemoglobin A1c percentageOrd ered By: Tima Worrell on 09-20-2024 HbA1c (Bld) [Mass fraction] 6.5 % High 3.8-5.6 [facility] Comment on above: Normal < 5.7 % Predi abetic 5.7 - 6.4 % Diabetic >or= 6.5 % Please note range changes. Hemoglobin measurementOrdere d By: Tima Worrell on 09-20-2024 Hemoglobin (Bld) [Mass/Vol] 9.8 g/dL Low 12.0-15.0 [facility] High density lipoprotein (HD L) measurementOrdered By: Tima Worrell on 09-20-2024 Cholesterol in HDL [Mass/Vol] 45 mg/dL >40 [facility] Comment on above: The drugs N-Acetylcy steine and Metamizole may falsely depress this assay. Reference Range HDL <40 mg/dL Low HDL Cholesterol HDL >or= 60 mg/dL High HDL Cholesterol Immature granulocytes/100 WB C Auto (Bld)Ordered By: Tima Worrell on 09-20-2024 Immature granulocytes/100 WBC (Bld) 0.700 % 0.0-0.9 [facility] Comment on above: IG% - Immature Granu locytes (promyelocytes, myelocytes and metamyelocytes) > 1% indicates that a LEFT SHIFT is Present. International normalized rat io (INR) calculationOrdered By: Tima Worrell on 09-20-2024 INR Coag (Bld) [Relative time] 1.0 {INR} [facility] Suellen-1 antibody assayOrdered B y: Tima Worrell on 09-20-2024 SUELLEN-1 Antibody Not Reportable [facility] Laboratory - Chemistry and C hemistry - challengeOrdered By: Tima Worrell on 09-20-2024 AST [Catalytic activity/Vol] 30 U/L 15-37 [facility] Lipid Profileon 09-20-2024 Cholesterol [Mass/Vol] 175 mg/dL Normal 200 [facility] Comment on above: Result Comment: <200 mg/dL Desirable 200-240 mg/dL Borderline >240 mg/dL High Risk Performed By: #### M 100.7900 #### [facility] [address] [place], [address] Cholesterol in HDL [Mass/Vol] 45 mg/dL Normal [facility] Comment on above: Result Comment: The drugs N-Acetylcysteine and Metamizole may falsely depress this assay. Reference Range HDL <40 mg/dL Low HDL Cholesterol HDL >or= 60 mg/dL High HDL Cholesterol Performed By: #### M 100.7900 #### [facility] [address] [place], [address] Cholesterol in LDL [Mass/Vol] 79 mg/dL Normal 0-130 [facility] Comment on above: Performed By: #### M 100.7900 #### [facility] [address] [place], [address] Cholesterol in VLDL [Mass/Vol] 51 mg/dL High 5-40 [facility] Comment on above: Performed By: #### M 100.7900 #### [facility] [address] [place], [address] Triglyceride [Mass/Vol] 253 mg/dL High [facility] Comment on above: Result Comment: The drugs N-Acetylcysteine and Metamizole may falsely depress this assay. Serum Triglycerides Reference Interval Normal <150 mg/dL Borderline high 150 - 199 mg/dL High 200 - 499 mg/dL Very High > or = 500 mg/dL Performed By: #### M 100.7969 #### [facility] [place], [address] Low density lipoprotein (LDL ) cholesterol measurementOrdered By: Tima Worrell on 09-20-2024 Cholesterol in LDL [Mass/Vol] 79 mg/dL 0-130 [facility] Lymphocytes Auto (Unsp spec) [#/Vol]Ordered By: Tima Worrell on 09-20-2024 Lymphocytes (Bld) [#/Vol] 1.20 10*3/uL 0.83-4.51 [facility] Lymphocytes/100 WBC Auto (Un sp spec)Ordered By: Tima Worrell on 09-20-2024 Lymphocytes/100 WBC (Bld) 22.1 % 19-41 [facility] MCV (mean corpuscular volume ) determinationOrdered By: Tima Worrell on 09-20-2024 MCV (RBC) [Entitic vol] 87.9 fL 81-99 [facility] Mean corpuscular hemoglobin (MCH) determinationOrdered By: Tima Worrell on 09-20-2024 MCH (RBC) [Entitic mass] 25.3 pg Low 27.0-32.0 [facility] Mean corpuscular hemoglobin concentration (MCHC) determinationOrdered By: Tima Worrell on 09-20-2024 MCHC (RBC) [Mass/Vol] 28.7 g/dL Low 32-36 [facility] Mean platelet volume determi nationOrdered By: Tima Worrell on 09-20-2024 Platelet mean volume (Bld) [Entitic vol] 11.0 fL 6.2-12.0 [facility] Monocyte percentageOrdered B y: Tima Worrell on 09-20-2024 Monocytes/100 WBC (Bld) 7.2 % 0-10 [facility] Neutrophil percentageOrdered By: Tima Worrell on 09-20-2024 Neutrophils/100 WBC (Bld) 63.4 % 47-70 [facility] Nucleated red blood cell per centageOrdered By: Tima Worrell on 09-20-2024 Nucleated RBC/100 WBC (Bld) [Ratio] 0 % 0-5 [facility] Platelet countOrdered By: Demetrius Worrell on 09-20-2024 Platelets (Bld) [#/Vol] 106 10*3/uL Low 150-450 [facility] Potassium measurementOrdered By: Tima Worrell on 09-20-2024 Potassium [Moles/Vol] 3.8 mmol/L 3.5-5.1 [facility] Prothrombin Time w/INRon INR Coag (PPP) [Relative time] 1.0 {INR} Normal [facility] Comment on above: Performed By: #### M 100.7900 #### [facility] [address] [place], [place], [phone] PT Coag (PPP) [Time] 13.5 s Normal 11.7-14.9 [facility] Comment on above: Performed By: #### M 100.7900 #### [facility] [address] [place], [place], [phone] Prothrombin timeOrdered By: Tima Worrell on 09-20-2024 PT Coag (PPP) [Time] 13.5 s 11.7-14.9 [facility] RBC Auto (Bld) [#/Vol]Ordere d By: Tima Worrell on 09-20-2024 RBC (Bld) [#/Vol] 3.88 10*6/uL Low 4.2-5.4 [facility] QUALITY ASSURANCE PROJECT MANAGER abOrdered By: Tima Cordova and on 09-20-2024 QUALITY ASSURANCE PROJECT MANAGER Antibody Not Reportable [facility] SCL-70 extractable nuclear A b Qn (S)Ordered By: Tima Worrell on 09-20-2024 Scl-70 (Scleroderma) Antibody Not Reportable [facility] SS-A IgG antibody assayOrder ed By: Tima Worrell on 09-20-2024 SS-A/Ro IgG Antibody Not Reportable [facility] SS-B IgG antibody assayOrder ed By: Tima Worrell on 09-20-2024 SS-B/La IgG Antibody Not Reportable [facility] Serum anion gap measurementO rdered By: Tima Worrell on 09-20-2024 Anion gap [Moles/Vol] 10 mmol/L 5-15 [facility] Serum globulin measurementOr dered By: Tima Worrell on 09-20-2024 Globulin (S) [Mass/Vol] 3.8 g/dL 2.2-4.2 [facility] Serum or plasma alanine chong otransferase (ALT) measurementOrdered By: Tima Worrell on 09-20-2024 ALT [Catalytic activity/Vol] 29 U/L 13-56 [facility] Serum or plasma albumin isabel urement (mass/volume)Ordered By: Tima Worrell on 09-20-2024 Albumin [Mass/Vol] 4.0 g/dL 3.2-5.0 [facility] Serum or plasma alkaline niko sphatase measurementOrdered By: Tima Worrell on 09-20-2024 ALP [Catalytic activity/Vol] 95 U/L 45-117 [facility] Serum or plasma calcium isabel urement (mass/volume)Ordered By: Tima Worrell on 09-20-2024 Calcium [Mass/Vol] 9.3 mg/dL 8.5-10.1 [facility] Serum or plasma cholesterol measurement (mass/volume)Ordered By: Tima Worrell on 09-20-2024 Cholesterol [Mass/Vol] 175 mg/dL <200 [facility] Comment on above: <200 mg/dL Desirable 200-240 mg/dL Borderline >240 mg/dL High Risk Serum or plasma creatinine m easurement (mass/volume)Ordered By: Tima Worrell on 09-20-2024 Creatinine [Mass/Vol] 0.74 mg/dL 0.55-1.02 [facility] Comment on above: The validity of the calculated GFR & GFRAA in patients over 70 years has not been determined. Clinical correlation is essential. Serum or plasma urea nitroge n measurement (mass/volume)Ordered By: Tima Worrell on 09-20-2024 Urea nitrogen [Mass/Vol] 12 mg/dL 7-18 [facility] Spence antibody assayOrdered By: Tima Worrell on 09-20-2024 SM Antibody Not Reportable [facility] Sodium levelOrdered By: Guzman Worrell on 09-20-2024 Sodium [Moles/Vol] 138 mmol/L 136-145 [facility] Total proteinOrdered By: Amanda Worrell on 09-20-2024 Protein [Mass/Vol] 7.8 g/dL 6.4-8.2 [facility] Triglycerides measurementOrd ered By: Tima Worrell on 09-20-2024 Triglyceride [Mass/Vol] 253 mg/dL High <199 [facility] Comment on above: The drugs N-Acetylcy steine and Metamizole may falsely depress this assay.Serum Triglycerides Reference Interval Normal <150 mg/dL Borderline high 150 - 199 mg/dL High 200 - 499 mg/dL Very High > or = 500 mg/dL Very low density lipoprotein (VLDL) cholesterol measurementOrdered By: Tima Wrorell on 09-20-2024 VLDL Cholesterol 51 mg/dL High 5-40 [facility] Vitamin D,25 Hydroxyon 09-20 Vitamin D 25-OH 31.8 ng/mL Normal [facility] Comment on above: Result Comment: Viridiana min D 25(OH) Status Range Deficiency <20 ng/mL (50nmol/L) Insufficiency 20 - 30 ng/mL (50 - 75 nmol/L) Sufficiency 30 - 100 ng/mL (75 - 250 nmol/L) Toxicity >100 ng/mL (>250 nmol/L) Performed By: #### M 100.7900 #### [facility] [address] [place] [address]. [place], [address] White blood cell (WBC) count Ordered By: Tima Worrell on 09-20-2024 WBC (Bld) [#/Vol] 5.4 10*3/uL 4.4-11.0 [facility] US Breast - left limitedon 0 07-13-2024 IMPRESSION: BENIGN There is no sonographic evidence of malignancy. The 0.6 cm x 0.5 cm x 0.3 cm oval cyst in the left breast is benign. Return to annual mammogram screening schedule is recommended. Sudheer perales/safia:07/13/2024 13:32:00 Pot Sander(s): Qi Pritchard, [facility] Ultrasound BI-RADS: Category 2: Benign Multiple national specialty organizations have released breast cancer screening guidelines for women at average risk for developing breast cancer - guidelines that are based on both evidence and opinion, yet differ on when to start and how often to screen for breast cancer. With representation from Breast Imaging, Internal Medicine, Women's Health, Family Medicine, and Medical/Surgical Oncology, the [facility] has carefully reviewed the data and reached the following consensus: 1) All women should engage in shared decision-making with their providers to decide when to start and how often to screen; 2) All women should have the opportunity to start screening mammography at age 40; 3) For women ages 45-55, we recommend annual screening mammograms; 4) For women ages 55 and over, we support both the transition from an annual to a biennial interval if this aligns more with patient's values and preferences, or continuation with annual screening; 5) All women should discuss with their providers when to stop screening mammograms. 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: Safia Transcribe Date/Time: Jul 13 2024 1:00P Dictated by : SUDHEER CANDELARIA MD This examination was interpreted and the report reviewed and electronically signed by: SUDHEER CANDELARIA MD on Jul 13 2024 1:32PM [facility] DIVISION OF RADIOLOGY * * *Final Report* * * DATE OF EXAM: Jul 13 2024 1:12PM [id number] - [facility] cisimple BREAST LTD LT / PROCEDURE REASON: Abnormal mammogram * * * * Physician Interpretation * * * * #[id number] - [facility] cisimple BREAST LTD LIMITED ULTRASOUND OF LEFT BREAST: 07/13/2024 HISTORY: Abnormal Mammogram. RESULT: No prior exams were available for comparison. Color flow and real-time ultrasound of the left breast upper inner quadrant were performed. Alfonso scale images of the real-time examination were reviewed. There is a benign 0.6 cm x 0.5 cm x 0.3 cm oval cyst in the left breast at 10 o'clock middle depth. This oval cyst is anechoic and septated with a well-defined boundary. This correlates with mammography findings. Color flow imaging demonstrates that there is no vascularity present. DIVISION OF RADIOLOGY Provider, Jessica Fabienne [facility] - 07/13/2024 * * *Final Report* * * DATE OF EXAM: Jul 13 2024 1:12PM [id number] - [facility] cisimple BREAST LTD LT / PROCEDURE REASON: Abnormal mammogram * * * * Physician Interpretation * * * * #[id number] - [facility] US BREAST LTD LIMITED ULTRASOUND OF LEFT BREAST: 07/13/2024 HISTORY: Abnormal Mammogram. RESULT: No prior exams were available for comparison. Color flow and real-time ultrasound of the left breast upper inner quadrant were performed. Alfonso scale images of the real-time examination were reviewed. There is a benign 0.6 cm x 0.5 cm x 0.3 cm oval cyst in the left breast at 10 o'clock middle depth. This oval cyst is anechoic and septated with a well-defined boundary. This correlates with mammography findings. Color flow imaging demonstrates that there is no vascularity present. IMPRESSION IMPRESSION: BENIGN There is no sonographic evidence of malignancy. The 0.6 cm x 0.5 cm x 0.3 cm oval cyst in the left breast is benign. Return to annual mammogram screening schedule is recommended. Sudheer perales/safia:07/13/2024 13:32:00 Pot Sander(s): Qi Pritchard, [facility] Ultrasound BI-RADS: Category 2: Benign Multiple national specialty organizations have released breast cancer screening guidelines for women at average risk for developing breast cancer - guidelines that are based on both evidence and opinion, yet differ on when to start and how often to screen for breast cancer. With representation from Breast Imaging, Internal Medicine, Women's Health, Family Medicine, and Medical/Surgical Oncology, the [facility] has carefully reviewed the data and reached the following consensus: 1) All women should engage in shared decision-making with their providers to decide when to start and how often to screen; 2) All women should have the opportunity to start screening mammography at age 40; 3) For women ages 45-55, we recommend annual screening mammograms; 4) For women ages 55 and over, we support both the transition from an annual to a biennial interval if this aligns more with patient's values and preferences, or continuation with annual screening; 5) All women should discuss with their providers when to stop screening mammograms. 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: Safia Transcribe Date/Time: Jul 13 2024 1:00P Dictated by : SUDHEER CANDELARIA MD This examination was interpreted and the report reviewed and electronically signed by: SUDHEER CANDELARIA MD on Jul 13 2024 1:32PM EST [facility] Radiology Study observation (narrative) Erendira mansfield [facility] US Breast - left limitedOrde red By: [facility] Provider on 07-13-2024 [facility] 36on 03-25-2024 36 patient has been notified of providers message [facility] 36on 03-24-2024 36 Rx sent in [facility] Absolute lymphocyte countOrd ered By: Tima Worrell on 02-23-2024 Lymphocytes Auto (Unsp spec) [#/Vol] 1.27 10*3/uL 0.83-4.51 [facility] Automated lymphocyte count a s percentage of total leukocytesOrdered By: Tima Worrell on 02-23-2024 Lymphocytes/100 WBC Auto (Unsp spec) 27.7 % 19-41 [facility] Basophil percentageOrdered B y: Tima Worrell on 02-23-2024 Ammonia (P) [Moles/Vol] 11.0 umol/L 11-32 [facility] Basophils/100 WBC (Bld) 0.9 % 0-1 [facility] Bilirubin [Mass/Vol] 0.40 mg/dL 0.20-1.00 [facility] Comment on above: For patients on eltr ombopag therapy, use of Dimension Bronson TBIL is not recommended. Chloride [Moles/Vol] 105 mmol/L 98-107 [facility] Cholesterol [Mass/Vol] 155 mg/dL <200 [facility] Comment on above: <200 mg/dL Desirable 200-240 mg/dL Borderline >240 mg/dL High Risk Eosinophils/100 WBC (Bld) 8.1 % 0-5 [facility] Glucose [Mass/Vol] 156 mg/dL 74-106 [facility] Comment on above: Fasting Glucose resu lt greater than or equal to 126 mg/dL suggests DIABETES MELLITUS per A.D.A. criteria. Hemoglobin (Bld) [Mass/Vol] 11.9 g/dL 12.0-15.0 [facility] Monocytes/100 WBC (Bld) 6.3 % 0-10 [facility] Neutrophils (Bld) [#/Vol] 2.6 10*3/uL 2.0-7.7 [facility] Neutrophils/100 WBC (Bld) 56.3 % 47-70 [facility] Potassium [Moles/Vol] 4.1 mmol/L 3.5-5.1 [facility] Protein [Mass/Vol] 7.8 g/dL 6.4-8.2 [facility] Sodium [Moles/Vol] 138 mmol/L 136-145 [facility] Triglyceride [Mass/Vol] 181 mg/dL <199 [facility] Comment on above: The drugs N-Acetylcy steine and Metamizole may falsely depress this assay.Serum Triglycerides Reference Interval Normal <150 mg/dL Borderline high 150 - 199 mg/dL High 200 - 499 mg/dL Very High > or = 500 mg/dL WBC (Bld) [#/Vol] 4.6 10*3/uL 4.4-11.0 [facility] Determination of erythrocyte mean corpuscular volume (MCV)Ordered By: Tima Worrell on 02-23-2024 MCV (RBC) [Entitic vol] 95.0 fL 81-99 [facility] Erythrocyte distribution wid th ratioOrdered By: Tima Worrell on 02-23-2024 Erythrocyte distribution width (RBC) [Ratio] 14.1 % 11.6-14.6 [facility] Erythrocyte distribution wid th standard deviationOrdered By: Tima Worrell on 02-23-2024 Erythrocyte distribution width (RBC) [Entitic vol] 49.1 fL 35.1-43.9 [facility] Hematocrit Auto (Bld) [Volum e fraction]Ordered By: Tima Worrell on 02-23-2024 Hematocrit (Bld) [Volume fraction] 38.1 % 37-47 [facility] Immature granulocytes/100 WB C Auto (Bld)Ordered By: Tima Worrell on 02-23-2024 Immature granulocytes/100 WBC (Bld) 0.700 % 0.0-0.9 [facility] Comment on above: IG% - Immature Granu locytes (promyelocytes, myelocytes and metamyelocytes) > 1% indicates that a LEFT SHIFT is Present. Laboratory - Chemistry and C hemistry - challengeOrdered By: Tima Worrell on 02-23-2024 Albumin/Globulin [Mass ratio] 1.0 {ratio} 0.9-2.4 [facility] ALP [Catalytic activity/Vol] 84 U/L 45-117 [facility] ALT [Catalytic activity/Vol] 23 U/L 13-56 [facility] Cholesterol in HDL [Mass/Vol] 40 mg/dL >40 [facility] Comment on above: The drugs N-Acetylcy steine and Metamizole may falsely depress this assay. Reference Range HDL <40 mg/dL Low HDL Cholesterol HDL >or= 60 mg/dL High HDL Cholesterol Cholesterol in LDL [Mass/Vol] 79 mg/dL 0-130 [facility] CO2 [Moles/Vol] 27.0 mmol/L 21.0-32.0 [facility] Globulin (S) [Mass/Vol] 4.0 g/dL 2.2-4.2 [facility] Urea nitrogen/Creatinine [Mass ratio] 11.2 mg/mg 10-20 [facility] Laboratory - CoagulationOrde red By: Tima Worrell on 02-23-2024 INR Coag (Bld) [Relative time] 1.1 {INR} [facility] PT Coag (PPP) [Time] 13.8 s 11.7-14.9 [facility] Laboratory - Hematology and Cell countsOrdered By: Tima Worrell on 02-23-2024 MCH (RBC) [Entitic mass] 29.7 pg 27.0-32.0 [facility] MCHC (RBC) [Mass/Vol] 31.2 g/dL 32-36 [facility] Nucleated RBC/100 WBC (Bld) [Ratio] 0 % 0-5 [facility] Platelet mean volume (Bld) [Entitic vol] 10.8 fL 6.2-12.0 [facility] Platelets (Bld) [#/Vol] 90 10*3/uL 150-450 [facility] No Panel InformationOrdered By: Tima Worrell on 02-23-2024 C-Reactive Protein Extended Range 25.00 mg/L 0.0-3.0 [facility] Comment on above: C-Reactive Protein ( CRP) provides useful information for thediagnosis, therapy and monitoring of inflammatory processesand associated diseases. For the evaluation of Relative Riskfor Cardiovascular Disease, a High Sensitivity CRP (HSCRP)should be ordered. Estimated GFR (MDRD) Amer 91 mL/min >60 [facility] Comment on above: GFR Calc Estimated GFR (MDRD) Non-Af Amer 75 mL/min >60 [facility] Comment on above: Non- GFR Calc VLDL Cholesterol 36 mg/dL 5-40 [facility] RBC Auto (Bld) [#/Vol]Ordere d By: Tima Worrell on 02-23-2024 RBC (Bld) [#/Vol] 4.01 10*6/uL 4.2-5.4 [facility] Serum or plasma calcium isabel urement (mass/volume)Ordered By: Tima Worrell on 02-23-2024 Calcium [Mass/Vol] 9.6 mg/dL 8.5-10.1 [facility] Serum or plasma creatinine m easurement (mass/volume)Ordered By: Tima Worrell on 02-23-2024 Creatinine [Mass/Vol] 0.80 mg/dL 0.55-1.02 [facility] Comment on above: The validity of the calculated GFR & GFRAA in patients over 70 years has not been determined. Clinical correlation is essential. Serum or plasma urea nitroge n measurement (mass/volume)Ordered By: Tima Worrell on 02-23-2024 Urea nitrogen [Mass/Vol] 9 mg/dL 7-18 [facility] Thin prep Papanicolaou smear with manual screeningOrdered By: Tima Worrell on 02-23-2024 Thin prep Papanicolaou smear with manual screening 3.8 g/dL 3.2-5.0 [facility] Thin prep Papanicolaou smear with manual screening 29 U/L 15-37 [facility] Thin prep Papanicolaou smear with manual screening 6 5-15 [facility] Whole blood hemoglobin A1c/t otal hemoglobin ratio (mass fraction)Ordered By: Tima Worrell on 02-23-2024 HbA1c (Bld) [Mass fraction] 5.9 % 3.8-5.6 [facility] Comment on above: Normal < 5.7 % Predi abetic 5.7 - 6.4 % Diabetic >or= 6.5 % Please note range changes. UA DIP, URINE (POC)on 2023 BILIRUBIN UA (POCT) Negative Negative [facility] CLARITY UA (POCT) Clear [facility] COLOR UA (POCT) Other [facility] GLUCOSE UA (POCT) Negative Negative mg/dL [facility] Hemoglobin Ql (U) Negative Negative [facility] KETONE UA (POCT) 15 mg/dL Abnormal Negative mg/dL [facility] LEUKOCYTES UA (POCT) Small Abnormal Negative [facility] NITRITE UA (POCT) Positive Abnormal Negative [facility] PH UA (POCT) 5.5 4.5 - 8.0 [facility] Protein Ql (U) Negative Negative mg/dL [facility] SPECIFIC GRAVITY UA (POCT) >=1.030 1.005 - 1.030 [facility] UROBILINOGEN UA (POCT) 0.2 E.U./dL Nereida l E.U./dL [facility] Absolute lymphocyte countOrd ered By: Tima Worrell on 11-24-2023 Lymphocytes Auto (Unsp spec) [#/Vol] 1.83 10*3/uL 0.83-4.51 [facility] Automated lymphocyte count a s percentage of total leukocytesOrdered By: Tima Worrell on 11-24-2023 Lymphocytes/100 WBC Auto (Unsp spec) 33.6 % 19-41 [facility] Basophil percentageOrdered B y: Tima Worrell on 11-24-2023 Ammonia (P) [Moles/Vol] 25.0 umol/L 11-32 [facility] Basophils/100 WBC (Bld) 1.1 % 0-1 [facility] Bilirubin [Mass/Vol] 0.60 mg/dL 0.20-1.00 [facility] Comment on above: For patients on eltr ombopag therapy, use of Dimension Bronson TBIL is not recommended. Chloride [Moles/Vol] 104 mmol/L 98-107 [facility] Eosinophils/100 WBC (Bld) 4.2 % 0-5 [facility] Glucose [Mass/Vol] 193 mg/dL 74-106 [facility] Comment on above: Fasting Glucose resu lt greater than or equal to 126 mg/dL suggests DIABETES MELLITUS per A.D.A. criteria. Hemoglobin (Bld) [Mass/Vol] 12.6 g/dL 12.0-15.0 [facility] Monocytes/100 WBC (Bld) 5.7 % 0-10 [facility] Neutrophils (Bld) [#/Vol] 3.0 10*3/uL 2.0-7.7 [facility] Neutrophils/100 WBC (Bld) 54.8 % 47-70 [facility] Potassium [Moles/Vol] 3.9 mmol/L 3.5-5.1 [facility] Protein [Mass/Vol] 7.7 g/dL 6.4-8.2 [facility] Sodium [Moles/Vol] 136 mmol/L 136-145 [facility] WBC (Bld) [#/Vol] 5.4 10*3/uL 4.4-11.0 [facility] Determination of erythrocyte mean corpuscular volume (MCV)Ordered By: Tima Worrell on 11-24-2023 MCV (RBC) [Entitic vol] 94.0 fL 81-99 [facility] Erythrocyte distribution wid th ratioOrdered By: Tima Worrell on 11-24-2023 Erythrocyte distribution width (RBC) [Ratio] 14.0 % 11.6-14.6 [facility] Erythrocyte distribution wid th standard deviationOrdered By: Tima Worrell on 11-24-2023 Erythrocyte distribution width (RBC) [Entitic vol] 47.8 fL 35.1-43.9 [facility] Hematocrit Auto (Bld) [Volum e fraction]Ordered By: Tima Worrell on 11-24-2023 Hematocrit (Bld) [Volume fraction] 39.0 % 37-47 [facility] Immature granulocytes/100 WB C Auto (Bld)Ordered By: Tima Worrell on 11-24-2023 Immature granulocytes/100 WBC (Bld) 0.600 % 0.0-0.9 [facility] Comment on above: IG% - Immature Granu locytes (promyelocytes, myelocytes and metamyelocytes) > 1% indicates that a LEFT SHIFT is Present. Laboratory - Chemistry and C hemistry - challengeOrdered By: Tima oWrrell on 11-24-2023 Albumin/Globulin [Mass ratio] 0.9 {ratio} 0.9-2.4 [facility] ALP [Catalytic activity/Vol] 109 U/L 45-117 [facility] ALT [Catalytic activity/Vol] 43 U/L 13-56 [facility] CO2 [Moles/Vol] 27.0 mmol/L 21.0-32.0 [facility] Globulin (S) [Mass/Vol] 4.0 g/dL 2.2-4.2 [facility] Urea nitrogen/Creatinine [Mass ratio] 12.8 mg/mg 10-20 [facility] Laboratory - CoagulationOrde red By: Tima Worrell on 11-24-2023 INR Coag (Bld) [Relative time] 1.0 {INR} [facility] PT Coag (PPP) [Time] 13.6 s 11.7-14.9 [facility] Laboratory - Hematology and Cell countsOrdered By: Tima Worrell on 11-24-2023 MCH (RBC) [Entitic mass] 30.4 pg 27.0-32.0 [facility] MCHC (RBC) [Mass/Vol] 32.3 g/dL 32-36 [facility] Nucleated RBC/100 WBC (Bld) [Ratio] 0 % 0-5 [facility] Platelet mean volume (Bld) [Entitic vol] 11.0 fL 6.2-12.0 [facility] Platelets (Bld) [#/Vol] 80 10*3/uL 150-450 [facility] No Panel InformationOrdered By: Tima Worrell on 11-24-2023 Estimated GFR (MDRD) Amer 84 mL/min >60 [facility] Comment on above: GFR Calc Estimated GFR (MDRD) Non-Af Amer 70 mL/min >60 [facility] Comment on above: Non- GFR Calc Tumor Marker Alpha Fetoprotein 2.7 ng/mL 0.0-9.2 [facility] Comment on above: [facility] El ectrochemiluminescence Immunoassay(ECLIA)Values obtained with different assay methods or kits cannotbe used interchangeably. Results cannot be interpreted asabsolute evidence of the presence or absence of malignantdisease.This test is not interpretable in females.Performed at: [employer] [address] [id number] Director: Lucho Bonds PhD, Phone: [phone] RBC Auto (Bld) [#/Vol]Ordere d By: Tima Worrell on 11-24-2023 RBC (Bld) [#/Vol] 4.15 10*6/uL 4.2-5.4 [facility] Serum or plasma calcium isabel urement (mass/volume)Ordered By: Tima Worrell on 11-24-2023 Calcium [Mass/Vol] 9.1 mg/dL 8.5-10.1 [facility] Serum or plasma creatinine m easurement (mass/volume)Ordered By: Tima Worrell on 11-24-2023 Creatinine [Mass/Vol] 0.86 mg/dL 0.55-1.02 [facility] Comment on above: The validity of the calculated GFR & GFRAA in patients over 70 years has not been determined. Clinical correlation is essential. Serum or plasma urea nitroge n measurement (mass/volume)Ordered By: Tima Worrell on 11-24-2023 Urea nitrogen [Mass/Vol] 11 mg/dL 7-18 [facility] Thin prep Papanicolaou smear with manual screeningOrdered By: Tima Worrell on 11-24-2023 Thin prep Papanicolaou smear with manual screening 3.7 g/dL 3.2-5.0 [facility] Thin prep Papanicolaou smear with manual screening 35 U/L 15-37 [facility] Thin prep Papanicolaou smear with manual screening 5 5-15 [facility] Glucose Glucometer (BldC) [M ass/Vol]Ordered By: Toño Curtis on 08-10-2023 Glucose [Mass/Vol] 128 mg/dL 74-106 [facility] Comment on above: MANAGEMENT OF PATIEN T CARE PER NURSING PROTOCOL Absolute lymphocyte countOrd ered By: Toño Curtis on 06-19-2023 Lymphocytes Auto (Unsp spec) [#/Vol] 1.47 10*3/uL 0.83-4.51 [facility] Basophil percentageOrdered B y: Toño Curtis on 06-19-2023 Ammonia (P) [Moles/Vol] 17.0 umol/L 11-32 [facility] Basophils/100 WBC (Bld) 0.9 % 0-1 [facility] Bilirubin [Mass/Vol] 0.70 mg/dL 0.20-1.00 [facility] Comment on above: For patients on eltr ombopag therapy, use of Dimension Bronson TBIL is not recommended. Chloride [Moles/Vol] 104 mmol/L 98-107 [facility] Eosinophils/100 WBC (Bld) 5.6 % 0-5 [facility] Glucose [Mass/Vol] 122 mg/dL 74-106 [facility] Comment on above: Fasting Glucose resu lt from 100 to 125 mg/dL suggests IMPAIRED HOMEOSTASIS per A.D.A. criteria. LDH [Catalytic activity/Vol] 165 U/L 84-246 [facility] Neutrophils (Bld) [#/Vol] 2.6 10*3/uL 2.0-7.7 [facility] Neutrophils/100 WBC (Bld) 55.4 % 47-70 [facility] Potassium [Moles/Vol] 3.9 mmol/L 3.5-5.1 [facility] Protein [Mass/Vol] 7.5 g/dL 6.4-8.2 [facility] Sodium [Moles/Vol] 138 mmol/L 136-145 [facility] WBC (Bld) [#/Vol] 4.7 10*3/uL 4.4-11.0 [facility] Blood erythrocytes count (nu mber/volume)Ordered By: Toño Curtis on 06-19-2023 RBC (Bld) [#/Vol] 4.33 10*6/uL 4.2-5.4 [facility] Blood hemoglobin measurement (mass/volume)Ordered By: Toño Curtis on 06-19-2023 Hemoglobin (Bld) [Mass/Vol] 13.0 g/dL 12.0-15.0 [facility] Blood lymphocytes/100 leukoc ytesOrdered By: Toño Curtis on 06-19-2023 Lymphocytes/100 WBC (Bld) 31.5 % 19-41 [facility] Blood monocytes/100 leukocyt esOrdered By: Toño Curtis on 06-19-2023 Monocytes/100 WBC (Bld) 6.4 % 0-10 [facility] Blood platelet mean volumeOr dered By: Toño Curtis on 06-19-2023 Platelet mean volume (Bld) [Entitic vol] 10.8 fL 6.2-12.0 [facility] Determination of erythrocyte mean corpuscular volume (MCV)Ordered By: Toño Curtis on 06-19-2023 MCV (RBC) [Entitic vol] 95.2 fL 81-99 [facility] Erythrocyte sedimentation ra teOrdered By: Toño Curtis on 06-19-2023 ESR (Bld) [Velocity] 16 mm/h 0-30 [facility] Hematocrit Auto (Bld) [Volum e fraction]Ordered By: Toño Curtis on 06-19-2023 Hematocrit (Bld) [Volume fraction] 41.2 % 37-47 [facility] INR in Blood by Coagulation assayOrdered By: Toño Curtis on 06-19-2023 INR Coag (Bld) [Relative time] 1.0 {INR} [facility] Laboratory - Chemistry and C hemistry - challengeOrdered By: Toño Curtis on 06-19-2023 ALP [Catalytic activity/Vol] 88 U/L 45-117 [facility] ALT [Catalytic activity/Vol] 32 U/L 13-56 [facility] CO2 [Moles/Vol] 29.0 mmol/L 21.0-32.0 [facility] Globulin (S) [Mass/Vol] 3.7 g/dL 2.2-4.2 [facility] Urea nitrogen/Creatinine [Mass ratio] 18.5 mg/mg 10-20 [facility] Laboratory - CoagulationOrde red By: Toño Curtis on 06-19-2023 PT Coag (PPP) [Time] 13.2 s 11.7-14.9 [facility] Laboratory - Hematology and Cell countsOrdered By: Toño Curtis on 06-19-2023 Erythrocyte distribution width (RBC) [Entitic vol] 51.9 fL 35.1-43.9 [facility] Erythrocyte distribution width (RBC) [Ratio] 15.0 % 11.6-14.6 [facility] Immature granulocytes/100 WBC (Bld) 0.200 % 0.0-0.9 [facility] Comment on above: IG% - Immature Granu locytes (promyelocytes, myelocytes and metamyelocytes) > 1% indicates that a LEFT SHIFT is Present. MCH (RBC) [Entitic mass] 30.0 pg 27.0-32.0 [facility] Nucleated RBC/100 WBC (Bld) [Ratio] 0 % 0-5 [facility] MCHC Auto (RBC) [Mass/Vol]Or dered By: Toño Curtis on 06-19-2023 MCHC (RBC) [Mass/Vol] 31.6 g/dL 32-36 [facility] No Panel InformationOrdered By: Toño Curtis on 06-19-2023 Estimated GFR (MDRD) Amer 107 mL/min >60 [facility] Comment on above: GFR Calc Estimated GFR (MDRD) Non-Af Amer 88 mL/min >60 [facility] Comment on above: Non- GFR Calc Platelets bldOrdered By: Reinaldo Curtis on 06-19-2023 Platelets (Bld) [#/Vol] 60 10*3/uL 150-450 [facility] Serum or plasma C reactive p rotein measurement (mass/volume)Ordered By: Toño Curtis on 06-19-2023 CRP [Mass/Vol] 10.20 mg/L 0.0-3.0 [facility] Comment on above: C-Reactive Protein ( CRP) provides useful information for thediagnosis, therapy and monitoring of inflammatory processesand associated diseases. For the evaluation of Relative Riskfor Cardiovascular Disease, a High Sensitivity CRP (HSCRP)should be ordered. Serum or plasma albumin isabel urement (mass/volume)Ordered By: Toño Curtis on 06-19-2023 Albumin [Mass/Vol] 3.8 g/dL 3.2-5.0 [facility] Serum or plasma albumin/glob ulin mass ratioOrdered By: Toño Curtis on 06-19-2023 Albumin/Globulin [Mass ratio] 1.0 {ratio} 0.9-2.4 [facility] Serum or plasma calcium isabel urement (mass/volume)Ordered By: Toño Curtis on 06-19-2023 Calcium [Mass/Vol] 8.9 mg/dL 8.5-10.1 [facility] Serum or plasma creatinine m easurement (mass/volume)Ordered By: Toño Curtis on 06-19-2023 Creatinine [Mass/Vol] 0.70 mg/dL 0.55-1.02 [facility] Comment on above: The validity of the calculated GFR & GFRAA in patients over 70 years has not been determined. Clinical correlation is essential. Serum or plasma urea nitroge n measurement (mass/volume)Ordered By: Toño Curtis on 06-19-2023 Urea nitrogen [Mass/Vol] 13 mg/dL 7-18 [facility] Thin prep Papanicolaou smear with manual screeningOrdered By: Toño Curtis on 06-19-2023 Thin prep Papanicolaou smear with manual screening 30 U/L 15-37 [facility] Thin prep Papanicolaou smear with manual screening 5 5-15 [facility] DIGITAL MAMM SCREENING W/ TO [place] 04-15-2023 DIGITAL MAMM SCREENING W/ ERYN Patient Name: KRISTA CAMPBELL STUDY: Digital mammography screening with eryn; 04/15/2023 10:10 am ACCESSION NUMBER(S): [id number] ORDERING CLINICIAN: ESTEBAN HUBBARD INDICATION: Screening. COMPARISON: Comparison is made to prior digital mammograms dated 12/13/2021 FINDINGS: CC and MLO 2D digital mammograms and digital breast tomosynthesis images were obtained of the bilateral breasts. 3-D volume images were reconstructed in 4 views at an independent workstation as 1 mm slices through the breasts in both the CC and MLO projections. There are areas of scattered fibroglandular tissue. No discrete mass or focal asymmetry is identified. No suspicious microcalcifications or foci of architectural distortion are seen. There has been no significant change. This study was interpreted with CAD. IMPRESSION: No mammographic evidence of malignancy. BI-RADS CATEGORY: Category: 1 - Negative. Recommendation: 1 Year Screening. Electronically signed by: JAKOB RAMIREZ MD [facility] Mamm - Screening Mammogram w / Tomosynthesison 04-15-2023 MG Breast Screening Normal Women [facility] [address] Work Phone: Glucose Glucometer (BldC) [M ass/Vol]Ordered By: Toño Curtis on 04-08-2023 Glucose [Mass/Vol] 136 mg/dL 74-106 [facility] Comment on above: MANAGEMENT OF ALEXIA Clarke CARE PER NURSING PROTOCOL Laboratory - Cytologyon 03-20 Cytology report Cyto stain.thin prep Doc (Cvx/Vag) [facility] Work Phone: [facility] [employer] - Office Visiton 03-20 [facility] - Office Visit Diagnoses/Problems Assessed Screening for breast cancer (V76.10) (Z12.39) Screening for cervical cancer (V76.2) (Z12.4) Women's annual routine gynecological examination (V72.31) (Z01.419) Orders Mamm - Screening Mammogram w/ Tomosynthesis; Status:Hold For - Scheduling; Requested for:07Apr2023; Radiologist to Determine Optimal Study : Y What are the patient's signs and symptoms ? : Annual Screening Mammogram PAP CLINICAL SOCIAL WORKER, Cytology; Status:In Progress - Specimen/Data Collected,Retrospective Authorization; Done: 07Apr2023 Last Menstrual Period (LMP): : Menopause 2002 PAP - Site : CERVICAL Cytology Order : ThinPrep PAP, Screening, HPV CoTest - Include Genotyping Provider Impressions 1. Annual 2. Screening mammogram Follow-up in 2 years or as needed. Chief Complaint Patient is here for her yearly exam and pap test. Menopause in 2002. Patient does self breast exams and has no concerns at this time. History of Present IllnessPresents for annual exam. She voices no complaints and is doing well. Denies any bowel or bladder problems. Denies any breast problems. Denies any postmenopausal bleeding. Review of Systems Review of Systems: Constitutional: No fever or chills Respiratory: No shortness of breath, or cough Cardiovascular: No chest pain or syncope Breasts: No breast pain, no masses, no nipple discharge Gastrointestinal: No nausea, vomiting, or diarrhea, no abdominal pain Genitourinary: No dysuria or frequency Gynecology: Negative except as noted in history of present illness All other: All other systems reviewed and negative for complaint Active Problems Problems Abnormal mammogram (793.80) (R92.8) Breast mass, left (611.72) (N63.20) Chronic GERD (530.81) (K21.9) Hypothyroidism (244.9) (E03.9) Screening for breast cancer (V76.10) (Z12.39) Screening for cervical cancer (V76.2) (Z12.4) Screening for osteoporosis (V82.81) (Z13.820) Type 2 diabetes mellitus (250.00) (E11.9) Women's annual routine gynecological examination (V72.31) (Z01.419) Past Medical History Problems History of Delivery by section (669.70) 05/08/1986; 40 WEEKS; MALE; 8LBS 13OZ History of mammogram (V15.89) (Z92.89) 11/07/2019 BENIGN History of menopause (V49.81) (Z78.0) 2002 History of vaginal delivery (V13.29) 12/26/1975; 40 WEEKS; MALE; 7LBS 6OZ 01/13/1983; 40 WEEKS; FEMALE; 7LBS 6OZ History of Menarche (V21.8) AGE 13 History of Vaginal Pap smear (V76.47) (Z12.72) 09/22/2018-cotest NEGATIVE Surgical History Problems History of section History of Tonsillectomy with adenoidectomy Family History Mother Family history of cardiac disorder (V17.49) (Z82.49) Family history of diabetes mellitus (V18.0) (Z83.3) Father Family history of cardiac disorder (V17.49) (Z82.49) Family history of diabetes mellitus (V18.0) (Z83.3) Aunt Family history of malignant neoplasm of breast (V16.3) (Z80.3) Social History Problems Does not use illicit drugs (V49.89) (Z78.9) Never a smoker No alcohol use Sexually active Allergies Medication Cipro Unknown; Recorded By: Mary Guillen; 11/02/2019 9:16:50 AM metronidazole Unknown; Recorded By: Mary Guillen; 11/02/2019 9:16:50 AM Penicillins Unknown; Recorded By: Mary Guillen; 11/02/2019 9:16:50 AM Sulfa Drugs Unknown; Recorded By: Mary Guillen; 11/02/2019 9:16:50 AM Current Meds Medication NameInstruction Acidophilus TABS Allopurinol 300 MG Oral Tablet Apple Cider Vinegar 300 MG Oral Tablet Billy-Mag TABS CoQ10 CAPS Cranberry CAPS Cranberry Soft CHEW Erythromycin PADS Fluorometholone SUSP Gabapentin 300 MG Oral Capsule Hair Skin Nails CAPS metFORMIN HCl - 1000 MG Oral Tablet Multi For Her TABS Ondansetron HCl - 4 MG Oral Tablet Pantoprazole Sodium 40 MG Oral Tablet Delayed Release PreserVision AREDS 2 Oral Capsule Rizatriptan Benzoate 10 MG Oral Tablet Synthroid 100 MCG Oral Tablet Trulicity 1.5 MG/0.5ML Subcutaneous Solution Pen-injector Turmeric Curcumin Oral Capsule Vitamin C TABS Xiidra 5 % Ophthalmic Solution Vitals Vital Signs Recorded: 07Apr2023 09:52AM [id number] Height5 ft 0.24 in Imlrgw29.6 kg BMI Zfokwobtxt21.86 kg/m2 BSA Calculated1.72 Tobacco Useb) No PHQ-2 #1. Over the last 2 weeks have you felt down, depressed or hopeless? (If yes, answer PHQ-9 below)No PHQ-2 #2. Over the last 2 weeks have you felt little interest or pleasure in doing things? (If yes, answer PHQ-9 below)No Falls Screening (Age 18+)a) No falls within the last year LMPMenopause 2002 Physical Exam PHYSICAL EXAMINATION: Well-developed, well nourished, in no acute distress, alert and oriented x three, is pleasant and cooperative. HEENT: Clear. Pupils equal, round and reactive to light and accommodation. Extraocular muscles are intact. Oral mucosa pink without exudate. NECK: No lymphadenopathy, no thyromegaly. BREASTS: Symmetric, no palpable masses (more content not included)... Normal BURLESQUICEOUS Tobacco Screening.on 023 Adult depression screening assessment No [employer] Phone: Fall risk assessment a) No falls within the last year [employer] Phone: Last menstrual period start date Menopause 2002 [employer] Phone: Tobacco use status CPHS b) No [facility] Work Phone: Absolute lymphocyte countOrd ered By: Leta Dex on 03-20-2023 Lymphocytes Auto (Unsp spec) [#/Vol] 1.45 10*3/uL 0.83-4.51 [facility] Atypical perinuclear antineu trophil cytoplasmic antibodies measurementOrdered By: Leta Kowalski on 03-20-2023 Neutrophil cytoplasmic Ab.perinuclear.atypical IF (S) [Titer] <1:20 titer Neg:<1:20 [facility] Comment on above: The atypical pANCA p attern has been observed in asignificant percentage of patients with ulcerative colitis,primary sclerosing cholangitis and autoimmune hepatitis. Basophil percentageOrdered B y: Leta Kowalski on 03-20-2023 Ammonia (P) [Moles/Vol] 19.0 umol/L 11-32 [facility] Basophil percentage < 0.2 AI 0.0-0.9 [facility] Basophils/100 WBC (Bld) 0.8 % 0-1 [facility] Bilirubin [Mass/Vol] 0.40 mg/dL 0.20-1.00 [facility] Comment on above: For patients on eltr ombopag therapy, use of Dimension Bronson TBIL is not recommended. Chloride [Moles/Vol] 109 mmol/L 98-107 [facility] Eosinophils/100 WBC (Bld) 5.0 % 0-5 [facility] Glucose [Mass/Vol] 99 mg/dL 74-106 [facility] LDH [Catalytic activity/Vol] 155 U/L 84-246 [facility] Neutrophils (Bld) [#/Vol] 2.9 10*3/uL 2.0-7.7 [facility] Neutrophils/100 WBC (Bld) 58.1 % 47-70 [facility] Potassium [Moles/Vol] 3.9 mmol/L 3.5-5.1 [facility] Protein [Mass/Vol] 7.8 g/dL 6.4-8.2 [facility] Sodium [Moles/Vol] 142 mmol/L 136-145 [facility] WBC (Bld) [#/Vol] 5.0 10*3/uL 4.4-11.0 [facility] Blood erythrocytes count (nu mber/volume)Ordered By: Leta Kowalski on 03-20-2023 RBC (Bld) [#/Vol] 4.11 10*6/uL 4.2-5.4 [facility] Blood hemoglobin measurement (mass/volume)Ordered By: Leta Kowalski on 03-20-2023 Hemoglobin (Bld) [Mass/Vol] 12.2 g/dL 12.0-15.0 [facility] Blood lymphocytes/100 leukoc ytesOrdered By: Leta Kowalski on 03-20-2023 Lymphocytes/100 WBC (Bld) 29.1 % 19-41 [facility] Blood monocytes/100 leukocyt esOrdered By: Leta Kowalski on 03-20-2023 Monocytes/100 WBC (Bld) 6.4 % 0-10 [facility] Blood platelet mean volumeOr dered By: Leta Kowalski on 03-20-2023 Platelet mean volume (Bld) [Entitic vol] 11.0 fL 6.2-12.0 [facility] Determination of erythrocyte mean corpuscular volume (MCV)Ordered By: Leta Kowalski on 03-20-2023 MCV (RBC) [Entitic vol] 96.1 fL 81-99 [facility] Erythrocyte sedimentation ra teOrdered By: Leta Kowalski on 03-20-2023 ESR (Bld) [Velocity] 16 mm/h 0-30 [facility] HIV 1 and HIV-2 antibody ass ay with HIV-1 p24 antigen detectionOrdered By: Leta Kowalski on 03-20-2023 HIV 1+2 Ab+HIV1 p24 Ag IA Ql Non-Reactive Nonreactive [facility] Hematocrit Auto (Bld) [Volum e fraction]Ordered By: Leta Kowalski on 03-20-2023 Hematocrit (Bld) [Volume fraction] 39.5 % 37-47 [facility] INR in Blood by Coagulation assayOrdered By: Leta Kowalski on 03-20-2023 INR Coag (Bld) [Relative time] 1.0 {INR} [facility] Laboratory - Chemistry and C hemistry - challengeOrdered By: Leta Kowalski on 03-20-2023 ALP [Catalytic activity/Vol] 98 U/L 45-117 [facility] ALT [Catalytic activity/Vol] 37 U/L 13-56 [facility] CO2 [Moles/Vol] 26.0 mmol/L 21.0-32.0 [facility] Globulin (S) [Mass/Vol] 3.8 g/dL 2.2-4.2 [facility] Urea nitrogen/Creatinine [Mass ratio] 12.5 mg/mg 10-20 [facility] Laboratory - CoagulationOrde red By: Leta Kowalski on 03-20-2023 PT Coag (PPP) [Time] 13.0 s 11.7-14.9 [facility] Laboratory - Hematology and Cell countsOrdered By: Leta Kowalski on 03-20-2023 Erythrocyte distribution width (RBC) [Entitic vol] 57.1 fL 35.1-43.9 [facility] Erythrocyte distribution width (RBC) [Ratio] 16.2 % 11.6-14.6 [facility] Immature granulocytes/100 WBC (Bld) 0.600 % 0.0-0.9 [facility] Comment on above: IG% - Immature Granu locytes (promyelocytes, myelocytes and metamyelocytes) > 1% indicates that a LEFT SHIFT is Present. MCH (RBC) [Entitic mass] 29.7 pg 27.0-32.0 [facility] Nucleated RBC/100 WBC (Bld) [Ratio] 0 % 0-5 [facility] MCHC Auto (RBC) [Mass/Vol]Or dered By: Leta Kowalski on 03-20-2023 MCHC (RBC) [Mass/Vol] 30.9 g/dL 32-36 [facility] No Panel InformationOrdered By: Leta Kowalski on 03-20-2023 Centromere B Antibody <0.2 AI 0.0-0.9 [facility] Ceruloplasmin 17.7 mg/dL 19.0-39.0 [facility] Estimated GFR (MDRD) Amer 104 mL/min >60 [facility] Comment on above: GFR Calc Estimated GFR (MDRD) Non-Af Amer 86 mL/min >60 [facility] Comment on above: Non- GFR Calc Haptoglobin 102 mg/dL 37-355 [facility] Comment on above: Performed at: [facility] [id number] [place], [place] [id number] Director: Lucho Bonds PhD, Phone: [phone] at: - [facility] [address] [id number] Director: Soheila Santacruz MD, Phone: [phone] Hepatitis A IgM Antibody Negative Negative [facility] Hepatitis B Core IgM Antibody Negative Negative [facility] Hepatitis C Antibody (EIA) Non-Reactive Non Reactive [facility] Hepatitis C Antibody Comment Comment . [facility] Comment on above: Not infected with HC V unless early or acute infection issuspected (which may be delayed in an immunocompromisedindividual), or other evidence exists to indicate HCVinfection. Immunoglobulin G4 96 mg/dL 2-96 [facility] [employer]AL[employer] ASS[employer]ANCE PROJECT MANAGER Antibody <0.2 AI 0.0-0.9 [facility] Platelets bldOrdered By: Sasha Kowalski on 03-20-2023 Platelets (Bld) [#/Vol] 71 10*3/uL 150-450 [facility] Serum DNA double strand anti body assay (units/volume)Ordered By: Leta Kowalski on 03-20-2023 DNA double strand Ab Qn (S) [IU]/mL 0-9 [facility] Comment on above: Negative <5 Equivoca l 5 - 9 Positive >9 Serum IgG subclass 1 measure ment (mass/volume)Ordered By: Leta Kowalski on 03-20-2023 IgG subclass 1 (S) [Mass/Vol] 700 mg/dL 248-810 [facility] Serum IgG subclass 2 measure ment (mass/volume)Ordered By: Leta Kowalski on 03-20-2023 IgG subclass 2 (S) [Mass/Vol] 142 mg/dL 130-555 [facility] Serum IgG subclass 3 measure ment (mass/volume)Ordered By: Leta Kowalski on 03-20-2023 IgG subclass 3 (S) [Mass/Vol] 24 mg/dL 15-102 [facility] Serum Suellen-1 antibody assay (u nits/volume)Ordered By: Leta Kowalski on 03-20-2023 Suellen-1 extractable nuclear Ab Qn (S) <0.2 AI 0.0-0.9 [facility] Serum Scl-70 extractable nuc lear antibody assay (units/volume)Ordered By: Leta Kowalski on 03-20-2023 SCL-70 extractable nuclear Ab Qn (S) <0.2 AI 0.0-0.9 [facility] Serum Spence extractable nucl ear antibody detectionOrdered By: Leta Kowalski on 03-20-2023 Spence extractable nuclear Ab Ql (S) <0.2 AI 0.0-0.9 [facility] Serum classic neutrophil cyt oplasmic antibody assay (units/volume)Ordered By: Leta Kowalski on 03-20-2023 Neutrophil cytoplasmic Ab.classic Qn (S) <1:20 titer Neg:<1:20 [facility] Serum hepatitis B virus surf drew antibody IgG detectionOrdered By: Leta Kowalski on 03-20-2023 HBV surface IgG Ql (S) Reactive [facility] Comment on above: Non Reactive: Incons istent with immunity less than <10 mIU/mL Reactive: Consistent with immunity greater than or equal to 10 mIU/mL Serum mitochondria antibody detectionOrdered By: Leta Kowalski on 03-20-2023 Mitochondria Ab Ql (S) <20.0 Units 0.0-20.0 [facility] Comment on above: Negative 0.0 - 20.0 Equivocal 20.1 - 24.9 Positive >24.9Mitochondrial (M2) Antibodies are found in 90-96% ofpatients with primary biliary cirrhosis.Performed at: [address] [id number] Director: Lucho Bonds PhD, Phone: [phone] Serum or plasma C reactive p rotein measurement (mass/volume)Ordered By: Leta Kowalski on 03-20-2023 CRP [Mass/Vol] 10.30 mg/L 0.0-3.0 [facility] Comment on above: C-Reactive Protein ( CRP) provides useful information for thediagnosis, therapy and monitoring of inflammatory processesand associated diseases. For the evaluation of Relative Riskfor Cardiovascular Disease, a High Sensitivity CRP (HSCRP)should be ordered. Serum or plasma IgG measurem ent (mass/volume)Ordered By: Leta Kowalski on 03-20-2023 IgG [Mass/Vol] 941 mg/dL [id number] [facility] Serum or plasma actin IgG an tibody assay (units/volume)Ordered By: Leta Kowalski on 03-20-2023 Actin IgG Qn 6 Units 0-19 [facility] Comment on above: Negative 0 - 19 Weak positive 20 - 30 Moderate to strong positive >30 Actin Antibodies are found in 52-85% of patients with autoimmune hepatitis or chronic active hepatitis and in 22% of patients with primary biliary cirrhosis. Serum or plasma albumin isabel urement (mass/volume)Ordered By: Leta Kowalski on 03-20-2023 Albumin [Mass/Vol] 4.0 g/dL 3.2-5.0 [facility] Serum or plasma albumin/glob ulin mass ratioOrdered By: Leta Kowalski on 03-20-2023 Albumin/Globulin [Mass ratio] 1.1 {ratio} 0.9-2.4 [facility] Serum or plasma angiotensin converting enzyme measurement (enzymatic activity/volume)Ordered By: Leta Kowalski on 03-20-2023 Angiotensin converting enzyme [Catalytic activity/Vol] 57 U/L 14-82 [facility] Serum or plasma calcium isabel urement (mass/volume)Ordered By: Leta Kowalski on 03-20-2023 Calcium [Mass/Vol] 9.3 mg/dL 8.5-10.1 [facility] Serum or plasma creatinine m easurement (mass/volume)Ordered By: Leta Kowalski on 03-20-2023 Creatinine [Mass/Vol] 0.72 mg/dL 0.55-1.02 [facility] Comment on above: The validity of the calculated GFR & GFRAA in patients over 70 years has not been determined. Clinical correlation is essential. Serum or plasma hepatitis B virus surface antigen detection by immunoassayOrdered By: Leta Kowalski on 03-20-2023 HBV surface Ag IA Ql Negative Negative [facility] Serum or plasma urea nitroge n measurement (mass/volume)Ordered By: Leta Kowalski on 03-20-2023 Urea nitrogen [Mass/Vol] 9 mg/dL 7-18 [facility] Serum perinuclear neutrophil cytoplasmic antibody titer by immunofluorescenceOrdered By: Leta Kowalski on 03-20-2023 Neutrophil cytoplasmic Ab.perinuclear IF (S) [Titer] <1:20 titer Neg:<1:20 [facility] Comment on above: The presence of posi tive fluorescence exhibiting P-ANCA orC-ANCA patterns alone is not specific for the diagnosis ofWegener's Granulomatosis (WG) or microscopic polyangiitis.Decisions about treatment should not be based solely onANCA IFA results. The [employer]CA [employer] Consensusrecommends follow up testing of positive sera with both RI-3 and MPO-ANCA enzyme immunoassays. As many as 5% serumsamples are positive only by EIA. Ref. AM J Clin Qsxyqv5362;111:507-513. Thin prep Papanicolaou smear with manual screeningOrdered By: Leta Kowalski on 03-20-2023 Thin prep Papanicolaou smear with manual screening 40 U/L 15-37 [facility] Thin prep Papanicolaou smear with manual screening 7 5-15 [facility] Thin prep Papanicolaou smear with manual screening 68 ug/dL 80-158 [facility] Comment on above: Detection Limit = 5 Absolute lymphocyte countOrd ered By: Dr. Moreno on 01-21-2023 Lymphocytes Auto (Unsp spec) [#/Vol] 1.78 10*3/uL 0.83-4.51 [facility] Basophil percentageOrdered B y: Dr. Moreno on 01-21-2023 Basophils/100 WBC (Bld) 0.5 % 0-1 [facility] Bilirubin [Mass/Vol] 0.30 mg/dL 0.20-1.00 [facility] Comment on above: For patients on eltr ombopag therapy, use of Dimension Bronson TBIL is not recommended. Chloride [Moles/Vol] 109 mmol/L 98-107 [facility] Eosinophils/100 WBC (Bld) 2.8 % 0-5 [facility] Glucose [Mass/Vol] 153 mg/dL 74-106 [facility] Comment on above: Fasting Glucose resu lt greater than or equal to 126 mg/dL suggests DIABETES MELLITUS per A.D.A. criteria. Neutrophils (Bld) [#/Vol] 3.3 10*3/uL 2.0-7.7 [facility] Neutrophils/100 WBC (Bld) 57.3 % 47-70 [facility] Potassium [Moles/Vol] 3.9 mmol/L 3.5-5.1 [facility] Protein [Mass/Vol] 5.9 g/dL 6.4-8.2 [facility] Sodium [Moles/Vol] 138 mmol/L 136-145 [facility] WBC (Bld) [#/Vol] 5.7 10*3/uL 4.4-11.0 [facility] Blood erythrocytes count (nu mber/volume)Ordered By: Dr. Moreno on 01-21-2023 RBC (Bld) [#/Vol] 2.73 10*6/uL 4.2-5.4 [facility] Blood hemoglobin measurement (mass/volume)Ordered By: Dr. Moreno on 01-21-2023 Hemoglobin (Bld) [Mass/Vol] 8.6 g/dL 12.0-15.0 [facility] Blood lymphocytes/100 leukoc ytesOrdered By: Dr. Moreno on 01-21-2023 Lymphocytes/100 WBC (Bld) 31.3 % 19-41 [facility] Blood monocytes/100 leukocyt esOrdered By: Dr. Moreno on 01-21-2023 Monocytes/100 WBC (Bld) 7.0 % 0-10 [facility] Blood platelet mean volumeOr dered By: Dr. Moreno on 01-21-2023 Platelet mean volume (Bld) [Entitic vol] 11.2 fL 6.2-12.0 [facility] Determination of erythrocyte mean corpuscular volume (MCV)Ordered By: Dr. Moreno on 01-21-2023 MCV (RBC) [Entitic vol] 94.9 fL 81-99 [facility] Glucose Glucometer (BldC) [M ass/Vol]Ordered By: Dr. Moreno on 01-21-2023 Glucose [Mass/Vol] 334 mg/dL 74-106 [facility] Comment on above: MANAGEMENT OF PATIEN T CARE PER NURSING PROTOCOL Hematocrit Auto (Bld) [Volum e fraction]Ordered By: Dr. Moreno on 01-21-2023 Hematocrit (Bld) [Volume fraction] 26.6 % 37-47 [facility] Laboratory - Chemistry and C hemistry - challengeOrdered By: Dr. Moreno on 01-21-2023 ALP [Catalytic activity/Vol] 69 U/L 45-117 [facility] ALT [Catalytic activity/Vol] 36 U/L 13-56 [facility] CO2 [Moles/Vol] 23.0 mmol/L 21.0-32.0 [facility] Globulin (S) [Mass/Vol] 2.9 g/dL 2.2-4.2 [facility] Urea nitrogen/Creatinine [Mass ratio] 13.7 mg/mg 10-20 [facility] Laboratory - CoagulationOrde red By: Dr. Moreno on 01-21-2023 aPTT Coag (Bld) [Time] 27.7 s 24.1-36.2 [facility] Laboratory - Hematology and Cell countsOrdered By: Dr. Moreno on 01-21-2023 Erythrocyte distribution width (RBC) [Entitic vol] 50.6 fL 35.1-43.9 [facility] Erythrocyte distribution width (RBC) [Ratio] 15.4 % 11.6-14.6 [facility] Immature granulocytes/100 WBC (Bld) 1.100 % 0.0-0.9 [facility] Comment on above: IG% - Immature Granu locytes (promyelocytes, myelocytes and metamyelocytes) > 1% indicates that a LEFT SHIFT is Present. MCH (RBC) [Entitic mass] 30.0 pg 27.0-32.0 [facility] Nucleated RBC/100 WBC (Bld) [Ratio] 1.1 % 0-5 [facility] MCHC Auto (RBC) [Mass/Vol]Or dered By: Dr. Moreno on 01-21-2023 MCHC (RBC) [Mass/Vol] 31.7 g/dL 32-36 [facility] No Panel InformationOrdered By: Dr. Moreno on 01-21-2023 Estimated Creatinine Clearance Calc 65.50 ml/min [facility] Estimated GFR (MDRD) Amer 115 mL/min >60 [facility] Comment on above: GFR Calc Estimated GFR (MDRD) Non-Af Amer 95 mL/min >60 [facility] Comment on above: Non- GFR Calc Platelets bldOrdered By: Dr. Moreno on 01-21-2023 Platelets (Bld) [#/Vol] 82 10*3/uL 150-450 [facility] Serum or plasma albumin isabel urement (mass/volume)Ordered By: Dr. Moreno on 01-21-2023 Albumin [Mass/Vol] 3.0 g/dL 3.2-5.0 [facility] Serum or plasma albumin/glob ulin mass ratioOrdered By: Dr. Moreno on 01-21-2023 Albumin/Globulin [Mass ratio] 1.0 {ratio} 0.9-2.4 [facility] Serum or plasma calcium isabel urement (mass/volume)Ordered By: Dr. Moreno on 01-21-2023 Calcium [Mass/Vol] 7.9 mg/dL 8.5-10.1 [facility] Serum or plasma creatinine m easurement (mass/volume)Ordered By: Dr. Moreno on 01-21-2023 Creatinine [Mass/Vol] 0.66 mg/dL 0.55-1.02 [facility] Comment on above: The validity of the calculated GFR & GFRAA in patients over 70 years has not been determined. Clinical correlation is essential. Serum or plasma urea nitroge n measurement (mass/volume)Ordered By: Dr. Moreno on 01-21-2023 Urea nitrogen [Mass/Vol] 9 mg/dL 7-18 [facility] Thin prep Papanicolaou smear with manual screeningOrdered By: Dr. Moreno on 01-21-2023 Thin prep Papanicolaou smear with manual screening 47 U/L 15-37 [facility] Thin prep Papanicolaou smear with manual screening 6 5-15 [facility] Blood platelet adequacy dete ction by light microscopyOrdered By: Dr. Kong on 01-19-2023 Platelets LM Ql (Bld) MOD DEC ADEQ [facility] Hypochromatic red blood cell detectionOrdered By: Dr. Kong on 01-19-2023 Hypochromia Ql (Bld) 2+ [facility] INR in Blood by Coagulation assayOrdered By: Dr. Zapien on 01-19-2023 INR Coag (Bld) [Relative time] 1.2 {INR} [facility] Laboratory - Chemistry and C hemistry - challengeOrdered By: Dr. Tam on 01-19-2023 Magnesium [Mass/Vol] 2.0 mg/dL 1.6-2.6 [facility] Laboratory - CoagulationOrde red By: Dr. Zapien on 01-19-2023 PT Coag (PPP) [Time] 14.8 s 11.7-14.9 [facility] Laboratory - Hematology and Cell countsOrdered By: Dr. Kong on 01-19-2023 Anisocytosis Ql (Bld) 1+ [facility] Serum or plasma [id number] protein tumor marker measurement (units/volume)Ordered By: Toño Curtis on 01-19-2023 AFP.tumor marker Qn 2.6 ng/mL 0.0-9.2 [facility] Comment on above: [employer] El ectrochemiluminescence Immunoassay(ECLIA)Values obtained with different assay methods or kits cannotbe used interchangeably. Results cannot be interpreted asabsolute evidence of the presence or absence of malignantdisease.This test is not interpretable in females.Performed at: [place] [id number] Director: Lucho Bonds PhD, Phone: [phone] Absolute lymphocyte countOrd ered By: Daiana Chambers on 01-18-2023 Lymphocytes Auto (Unsp spec) [#/Vol] 3.18 10*3/uL 0.83-4.51 [facility] Basophil percentageOrdered B y: Daiana Chambers on 01-18-2023 Basophils/100 WBC (Bld) 0.4 % 0-1 [facility] Bilirubin [Mass/Vol] 0.50 mg/dL 0.20-1.00 [facility] Comment on above: For patients on eltr ombopag therapy, use of Dimension Bronson TBIL is not recommended. Chloride [Moles/Vol] 107 mmol/L 98-107 [facility] Eosinophils/100 WBC (Bld) 1.0 % 0-5 [facility] Glucose [Mass/Vol] 255 mg/dL 74-106 [facility] Comment on above: Glucose result great er than or equal to 200 mg/dLsuggests DIABETES MELLITUS per A.D.A. criteria. Neutrophils (Bld) [#/Vol] 13.4 10*3/uL 2.0-7.7 [facility] Neutrophils/100 WBC (Bld) 73.9 % 47-70 [facility] Potassium [Moles/Vol] 4.7 mmol/L 3.5-5.1 [facility] Protein [Mass/Vol] 7.4 g/dL 6.4-8.2 [facility] Sodium [Moles/Vol] 138 mmol/L 136-145 [facility] WBC (Bld) [#/Vol] 18.2 10*3/uL 4.4-11.0 [facility] Blood erythrocytes count (nu mber/volume)Ordered By: Daiana Chambers on 01-18-2023 RBC (Bld) [#/Vol] 3.32 10*6/uL 4.2-5.4 [facility] Blood hemoglobin measurement (mass/volume)Ordered By: Daiana Chambers on 01-18-2023 Hemoglobin (Bld) [Mass/Vol] 9.9 g/dL 12.0-15.0 [facility] Blood lymphocytes/100 leukoc ytesOrdered By: Daiana Chambers on 01-18-2023 Lymphocytes/100 WBC (Bld) 17.5 % 19-41 [facility] Blood monocytes/100 leukocyt esOrdered By: Daiana Chambers on 01-18-2023 Monocytes/100 WBC (Bld) 6.0 % 0-10 [facility] Blood platelet mean volumeOr dered By: Daiana Chambers on 01-18-2023 Platelet mean volume (Bld) [Entitic vol] 10.1 fL 6.2-12.0 [facility] Determination of erythrocyte mean corpuscular volume (MCV)Ordered By: Daiana Chambers on 01-18-2023 MCV (RBC) [Entitic vol] 92.2 fL 81-99 [facility] Hematocrit Auto (Bld) [Volum e fraction]Ordered By: Daiana Chambers on 01-18-2023 Hematocrit (Bld) [Volume fraction] 30.6 % 37-47 [facility] Laboratory - Chemistry and C hemistry - challengeOrdered By: Daiana Chambers on 01-18-2023 ALP [Catalytic activity/Vol] 83 U/L 45-117 [facility] ALT [Catalytic activity/Vol] 31 U/L 13-56 [facility] CO2 [Moles/Vol] 20.0 mmol/L 21.0-32.0 [facility] Globulin (S) [Mass/Vol] 3.6 g/dL 2.2-4.2 [facility] Urea nitrogen/Creatinine [Mass ratio] 44.2 mg/mg 10-20 [facility] Laboratory - Chemistry and C hemistry - challengeOrdered By: Dr. Macario on 01-18-2023 Lipase [Catalytic activity/Vol] 211 U/L 73-393 [facility] Laboratory - Hematology and Cell countsOrdered By: Daiana Chambers on 01-18-2023 Erythrocyte distribution width (RBC) [Entitic vol] 49.5 fL 35.1-43.9 [facility] Erythrocyte distribution width (RBC) [Ratio] 15.0 % 11.6-14.6 [facility] Immature granulocytes/100 WBC (Bld) 1.200 % 0.0-0.9 [facility] Comment on above: IG% - Immature Granu locytes (promyelocytes, myelocytes and metamyelocytes) > 1% indicates that a LEFT SHIFT is Present. MCH (RBC) [Entitic mass] 29.8 pg 27.0-32.0 [facility] Nucleated RBC/100 WBC (Bld) [Ratio] 0.3 % 0-5 [facility] MCHC Auto (RBC) [Mass/Vol]Or dered By: Daiana Chambers on 01-18-2023 MCHC (RBC) [Mass/Vol] 32.4 g/dL 32-36 [facility] No Panel InformationOrdered By: Daiana Chambers on 01-18-2023 Estimated GFR (MDRD) Amer 85 mL/min >60 [facility] Comment on above: GFR Calc Estimated GFR (MDRD) Non-Af Amer 70 mL/min >60 [facility] Comment on above: Non- GFR Calc Platelets bldOrdered By: Ward Chambers on 01-18-2023 Platelets (Bld) [#/Vol] 141 10*3/uL 150-450 [facility] Serum or plasma albumin isabel urement (mass/volume)Ordered By: Daiana Chambers on 01-18-2023 Albumin [Mass/Vol] 3.8 g/dL 3.2-5.0 [facility] Serum or plasma albumin/glob ulin mass ratioOrdered By: Daiana Chambers on 01-18-2023 Albumin/Globulin [Mass ratio] 1.1 {ratio} 0.9-2.4 [facility] Serum or plasma calcium isabel urement (mass/volume)Ordered By: Daiana Chambers on 01-18-2023 Calcium [Mass/Vol] 9.3 mg/dL 8.5-10.1 [facility] Serum or plasma creatinine m easurement (mass/volume)Ordered By: Daiana Chambers on 01-18-2023 Creatinine [Mass/Vol] 0.86 mg/dL 0.55-1.02 [facility] Comment on above: The validity of the calculated GFR & GFRAA in patients over 70 years has not been determined. Clinical correlation is essential. Serum or plasma urea nitroge n measurement (mass/volume)Ordered By: Daiana Chambers on 01-18-2023 Urea nitrogen [Mass/Vol] 38 mg/dL 7-18 [facility] Thin prep Papanicolaou smear with manual screeningOrdered By: Daiana Chambers on 01-18-2023 Thin prep Papanicolaou smear with manual screening 28 U/L 15-37 [facility] Thin prep Papanicolaou smear with manual screening 11 5-15 [facility] No Panel Informationon 07-11 [facility] XR CHEST AP/PA AND LATon XR CHEST AP/PA AND LAT EXAMINATION: XR CHEST AP/PA AND LAT HISTORY: ORDERING SYSTEM PROVIDED HISTORY: pre op, TECHNOLOGIST PROVIDED HISTORY: Illness/Other Reason for exam: pre op, Closed displaced fracture of fifth metatarsal bone of left foot, initial encounter, Cancer History: u Surgery, RadiationHistory: u Encounter Type: Ongoing Additional signs and symptoms: pre op, Closed displaced fracture of fifth metatarsal bone of left foot, initial encounter, ORDERING SYSTEM PROVIDED DIAGNOSIS CODES: S92.352A Closed displaced fracture of fifth metatarsal bone of left foot, initial encounter E11.40 Type 2 diabetes mellitus with diabetic neuropathy, with long-term current use of insulin (HCC) Z79.4 Type 2 diabetes mellitus with diabetic neuropathy, with long-term current use of insulin ([facility]) COMPARISON: None. FINDINGS: Two-view chest x-ray. No pneumothorax, pleural effusion or focal airspace consolidation. Heart is normal in size. Bony thorax is unremarkable. IMPRESSION: No acute cardiopulmonary process. ST/nPicker Workstation ID: [id number] Dictated by: FREDERIC RHOADES on ThuJun 27, 2022 7:56:10 AM EDT Transcribed by: CHARU INFANTE on ThuJun 27, 2022 8:42:10 AM EDT Finalized by: FREDERIC RHOADES on ThuJun 27, 2022 7:51:04 PM EDT [facility] Comment on above: Order Comment: Injur y/Trauma or Illness?:Illness/Other How long have you had these symptoms (acute/chronic)?:Chronic Reason for exam?:pre op, Closed displaced fracture of fifth metatarsal bone of left foot, initial encounter, History of cancer?:u Surgeries, chemotherapy, or radiation?:u Type of Exam?:Ongoing Additional signs and symptoms?:pre op, Closed displaced fracture of fifth metatarsal bone of left foot, initial encounter, no chest complaints No Panel Informationon 06-20 3 views of the left foot were reviewed today with the patient. There is a minimally displaced fifth metatarsal base avulsion fracture. No other fractures or dislocations of note. [employer] [facility] Radiology Study observation (narrative) [facility] XR Ankle Right 3+ Views (Sta ndard)on 02-18-2022 No fractures no dislocations no subluxations. Intact ankle joint with good tib-fib overlap GE RIS [facility] Radiology Study observation (narrative) [facility] Mamm - Screening Mammogram w / Tomosynthesison 12-13-2021 MG Breast Screening [facility] [place] [id number] [employer] Work Phone: Nursing communicationon 11-0 [employer] [facility] Nursing communicationOrdered By: Lorri Oseguera on 08-23-2021 [facility] XR Chest PA and Lateralon IMPRESSION: No acute radiographic abnormality. 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: [place] Transcribe Date/Time: Oct 30 2020 10:27A Dictated by : PEGGY DOWELL MD This examination was interpreted and the report reviewed and electronically signed by: PEGGY DOWELL MD on Oct 30 2020 10:32AM [facility] DIVISION OF RADIOLOGY * * *Final Report* * * DATE OF EXAM: Oct 30 2020 10:14AM WOX [id number] - XR CHEST 2V FRONTAL/LAT / PROCEDURE REASON: Cough * * * * Physician Interpretation * * * * EXAMINATION: CHEST RADIOGRAPH (2 VIEW FRONTAL & LATERAL) CLINICAL HISTORY: Cough MQ: XC2_6 EXAM DATE/TIME: 10/30/2020 10:14 AM COMPARISON: 04/04/2015 RESULT: Lines, tubes, and devices: None. Lungs and pleura: No consolidation. No lung mass. No pleural effusion. No pneumothorax. Cardiomediastinal silhouette: Normal cardiomediastinal silhouette. Bones and soft tissues: Unremarkable. DIVISION OF RADIOLOGY Provider, [facility] - 10/30/2020 * * *Final Report* * * DATE OF EXAM: Oct 30 2020 10:14AM WOX [id number] - XR CHEST 2V FRONTAL/LAT / PROCEDURE REASON: Cough * * * * Physician Interpretation * * * * EXAMINATION: CHEST RADIOGRAPH (2 VIEW FRONTAL & LATERAL) CLINICAL HISTORY: Cough MQ: XC2_6 EXAM DATE/TIME: 10/30/2020 10:14 AM COMPARISON: 04/04/2015 RESULT: Lines, tubes, and devices: None. Lungs and pleura: No consolidation. No lung mass. No pleural effusion. No pneumothorax. Cardiomediastinal silhouette: Normal cardiomediastinal silhouette. Bones and soft tissues: Unremarkable. IMPRESSION IMPRESSION: No acute radiographic abnormality. 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: FLORENCE Transcribe Date/Time: Oct 30 2020 10:27A Dictated by : PEGGY DOWELL MD This examination was interpreted and the report reviewed and electronically signed by: PEGGY DOWELL MD on Oct 30 2020 10:32AM [facility] Radiology Study observation (narrative) [facility] XR Chest PA and LateralOrder ed By: [facility] Provider on 10-30-2020 [facility] CR Spine Cervical Comp w/ Ob liques/Flexon 09-07-2020 CR Spine Cervical Comp w/ Obliques/Flex Patient Name: KRISTA CAMPBELL Diagnostic Radiology Exam Date/Time 09/07/2020 11:44:41 EST Exam CR Spine Cervical Comp w/ Obliques Ordering Physician ESTEBAN THAPA Accession Number [id number] CPT4 Codes 40797 () Reason For Exam Cervicalgia Report CLINICAL INDICATION: Neck pain. Cervical spine seven views including AP, open mouth odontoid views, bilateral oblique views and flexion, extension and neutral lateral views. Normal height of the cervical vertebral bodies. Alignment is maintained on flexion, extension and neutral lateral views. Moderate disc space narrowing at C5-C6. Degenerative endplate changes at C5-C6. Bilateral foraminal stenosis at C5-C6, greater on the left side. The C1/C2 alignment is within normal limits. Soft tissues are unremarkable. IMPRESSION: Degenerative disc and endplate changes at C5-C6. Bilateral foraminal compromise at C5-C6, left worse than right. Report Dictated on Final Dictating Physician: MD PEREZ LAURA Signed Date and Time: 09/07/2020 2:13 pm Signed by: MD PEREZ LAURA Transcribed Date and Time: 09/07/2020 2:14 Normal [facility] XR CERVICAL SPINE W OBLIQUES FLEXION AND EXTENSIONon 09-07-2020 Patient Name: KRISTA CAMPBELL ---Diagnostic Radiology--- Exam Date/Time 09/07/2020 11:44:41 EST Exam CR Spine Cervical Comp w/ Obliques Ordering Physician ESTEBAN THAPA Accession Number [id number] CPT4 Codes 32694 () Reason For Exam Cervicalgia Report CLINICAL INDICATION: Neck pain. Cervical spine seven views including AP, open mouth odontoid views, bilateral oblique views and flexion, extension and neutral lateral views. Normal height of the cervical vertebral bodies. Alignment is maintained on flexion, extension and neutral lateral views. Moderate disc space narrowing at C5-C6. Degenerative endplate changes at C5-C6. Bilateral foraminal stenosis at C5-C6, greater on the left side. The C1/C2 alignment is within normal limits. Soft tissues are unremarkable. IMPRESSION: Degenerative disc and endplate changes at C5-C6. Bilateral foraminal compromise at C5-C6, left worse than right. Report Dictated on --- Final --- Dictating Physician: MD PEREZ LAURA Signed Date and Time: 09/07/2020 2:13 pm Signed by: MD PEREZ LAURA Transcribed Date and Time: 09/07/2020 2:14 [facility], [place] Radhames, Ann Incoming Radiology Results From [facility] - 09/07/2020 2:14 PM EST Patient Name: KRISTA CAMPBELL ---Diagnostic Radiology--- Exam Date/Time 09/07/2020 11:44:41 EST Exam CR Spine Cervical Comp w/ Obliques Ordering Physician ESTEBAN THAPA Accession Number [id number] CPT4 Codes 55263 () Reason For Exam Cervicalgia Report CLINICAL INDICATION: Neck pain. Cervical spine seven views including AP, open mouth odontoid views, bilateral oblique views and flexion, extension and neutral lateral views. Normal height of the cervical vertebral bodies. Alignment is maintained on flexion, extension and neutral lateral views. Moderate disc space narrowing at C5-C6. Degenerative endplate changes at C5-C6. Bilateral foraminal stenosis at C5-C6, greater on the left side. The C1/C2 alignment is within normal limits. Soft tissues are unremarkable. IMPRESSION: Degenerative disc and endplate changes at C5-C6. Bilateral foraminal compromise at C5-C6, left worse than right. Report Dictated on --- Final --- Dictating Physician: MD PEREZ LAURA Signed Date and Time: 09/07/2020 2:13 pm Signed by: MD PEREZ LAURA Transcribed Date and Time: 09/07/2020 2:14 [facility], [place] Mamm Diag w/CAD if perf a nd 3D RTon 10-20-2018 [place] Mamm Diag w/CAD if perf and 3D RT Exam Date/Time:10/20/2018 09:50 ESTReason for Exam:ABN RIGHT BREAST MAMMO RT BREAST US IF NEEDED;Abnormal mammogramReportSTUDY:Dig ital diagnostic mammogram right with eryn, right breast ultrasound; 10/20/2018 10:00 am; 10/20/2018 9:50 amACCESSION NUMBER(S):[id number]; [id number] CLINICIAN:Regan NolandINDICATION:Abnorm al mammogramCOMPARISON:Scre ening mammogram dated 10/06/2018TECHNIQUE:Mamm ography:CC and MLO 2D digital mammograms and digital breast tomosynthesis images were obtained of the right breast. 3-D volume images were reconstructed in 2 views at an independent workstation as 1 mm slices through the breasts in both the CC and MLO projections.Ultrasound:M ultiple grayscale ultrasonographic images were obtained through the right breast in the region of palpable abnormality.FINDINGS:Elsa mography:There are areas of scattered fibroglandular tissue. There are several small persistent rounded masses identified in the central lower outer quadrant of the right breast. No suspicious microcalcifications or foci of architectural distortion are seen. Further evaluation with ultrasound was obtained.This study was interpreted with CAD.Ultrasound:In the 9 o'clock position of the right breast, approximately 3 cm from the nipple, there is a cluster of anechoic cysts identified, measuring at 5 x 5 x 2 mm in diameter. In the 8 o'clock position of the right breast, approximately 4 cm from the nipple, there is a small, up to 3 mm, cystic structure present. No solid masses were identified.IMPRESSION:Sm all cysts in the right breast, as described above. These are benign findings in the patient may return to normal yearly screening mammogram schedule.BI-RADS CATEGORY:Category: 2 - Benign Finding.Exam Date/Time:10/20/2018 09:50 ESTReportRecommendation: Normal Interval Follow-up, Over Age 40.Recall Interval: 12 Months.Breast Density: Scattered Fibroglandular Density. FINAL REPORT Dictated: 10/20/2018 11:47 am Kacy GOLDMAN, Jakob CSigned (Electronic Signature): 10/20/2018 11:47 amSigned by: Kacy GOLDMAN, Jakob Pillai Technologist: CECAssessment: BI-RADS Category 2-Benign findingRecommendation: Normal interval follow-up Normal [facility] US Breast Unilateral Rt Avila roberto 10-20-2018 US Breast Unilateral Rt Limited Exam Date/Time:10/20/2018 10:00 ESTReason for Exam:X;Abnormal mammogramReportSTUDY:Dig ital diagnostic mammogram right with eryn, right breast ultrasound; 10/20/2018 10:00 am; 10/20/2018 9:50 amACCESSION NUMBER(S):[id number]; [id number] CLINICIAN:Regan NolandINDICATION:Abnorm al mammogramCOMPARISON:Scre ening mammogram dated 10/06/2018TECHNIQUE:Mamm ography:CC and MLO 2D digital mammograms and digital breast tomosynthesis images were obtained of the right breast. 3-D volume images were reconstructed in 2 views at an independent workstation as 1 mm slices through the breasts in both the CC and MLO projections.Ultrasound:M ultiple grayscale ultrasonographic images were obtained through the right breast in the region of palpable abnormality.FINDINGS:Elsa mography:There are areas of scattered fibroglandular tissue. There are several small persistent rounded masses identified in the central lower outer quadrant of the right breast. No suspicious microcalcifications or foci of architectural distortion are seen. Further evaluation with ultrasound was obtained.This study was interpreted with CAD.Ultrasound:In the 9 o'clock position of the right breast, approximately 3 cm from the nipple, there is a cluster of anechoic cysts identified, measuring at 5 x 5 x 2 mm in diameter. In the 8 o'clock position of the right breast, approximately 4 cm from the nipple, there is a small, up to 3 mm, cystic structure present. No solid masses were identified.IMPRESSION:Sm all cysts in the right breast, as described above. These are benign findings in the patient may return to normal yearly screening mammogram schedule.BI-RADS CATEGORY:Category: 2 - Benign Finding.Exam Date/Time:10/20/2018 10:00 ESTReportRecommendation: Normal Interval Follow-up, Over Age 40.Recall Interval: 12 Months.Breast Density: Scattered Fibroglandular Density. FINAL REPORT Dictated: 10/20/2018 11:47 am Jakob Ramirez MDigned (Electronic Signature): 10/20/2018 11:47 amSigned by: Jakob Ramirez MD Technologist: BSAssessment: BI-RADS Category 2-Benign findingRecommendation: Normal interval follow-up Normal [facility] [place] Mamm Screen w/CAD if perf ormed bilaton 10-07-2018 [place] Mamm Screen w/CAD if performed bilat Exam Date/Time:10/06/2018 14:35 ESTReason for Exam:SCREENING;Screening ReportSTUDY:Digital mammography screening; 10/06/2018 2:35 pmACCESSION NUMBER(S):[id number] 53ORDERING CLINICIAN:Regan NolandINDICATION:Screen ing.COMPARISON:No prior studies are available for comparisonFINDINGS:CC and MLO 2D digital mammographic images of the bilateral breasts were obtained.There are areas of scattered fibroglandular tissue. A small ovoid asymmetry is seen in the central upper outer quadrant of the right breast at medium depth.No definite additional mass or focal asymmetry is identified. No suspicious microcalcifications or foci of architectural distortion are seen.This study was interpreted with CAD.IMPRESSION:Focal asymmetry in the right breast, as described above. Further evaluation with diagnostic mammograms and, if necessary, ultrasound is recommended.BI-RADS CATEGORY:Category: 0 - Incomplete; Need Additional Imaging Evaluation.Recommendatio n: Additional Projections.Recall Interval: Now.Breast Density: Scattered Fibroglandular Density. FINAL REPORT Dictated: 10/07/2018 10:20 am Jakob Ramirez MDigned (Electronic Signature): 10/07/2018 10:20 amSigned by: Jakob Ramirez MD Technologist: DHAssessment: BI-RADS Category 0-Incomplete: Need additional imaging evaluationRecommendation : Additional projections Normal [facility] HPV High Riskon 09-27-2018 HPV High Risk SEE REF LAB Normal [facility] Comment on above: Performed By: #### [id number] ####LEATHA Send Outs [id number] [place] [address] IG PAP [id number] 09-27-2018 Diagnosis: See Ref Lab Report Normal [facility] Comment on above: Order Comment: Thin prep: LMP: Nichole Performed By: #### [id number] ####LEATHA Send Outs [id number] [place] [address] Pathology ([facility])on 09-22-2018 Pathology ([facility]) FINAL GYNECOLOGIC CYTOLOGY [id number] ADEQUACYSatisfactory for EvaluationEndocervical component absent but acceptable due to patient age/historyGENERAL CATEGORIZATIONNegative for Intraepithelial Lesion or MalignancyCOMMENTHigh Risk HPV testing was ordered and performed at [facility] Laboratory for thefollowing high risk genotypes: 16/18/31/33/35/39/45/51/ 52/56/58/59/66/68. Anegative result is a normal result. A positive result is an abnormal result.Genotype-specific testing for high risk HPV types 16/18/45 is available uponrequest dependent upon a positive high risk HPV result.High Risk HPV: Negative RELATED LABORATORY RESULTSOrdered by: Daniel Date: 09/22/2018 Ord Time: 20:26Test Collected Result Abnormal Range Units SpecimenName D&T TypeHPV Negative NA MSCRNA, 8HighRiskThe HPV test detects E6/E7 viral messenger RNA (mRNA) high-risk HPV iiwtinisj78,18,31,33,35, 39,45,51,55,58,59,66, and 68 which are associated with cervicalcancer and its precursor lesions. However, cross-reactions with othergenotypes may occur. Results should be correlated with cytologic andhistologic findings. Sensitivity may be affected by cellularity of specimen.CLINICAL HISTORYMenopauseSPECIMEN (A) SCREENING CERVICAL/ENDOCERVICAL THIN PREP VIALPerformed at [facility], [address] [place], [place] [address]Screened by: Signed Out by: JANEE OLIVEIRA Geodetic Surveyor Reported: 09/24/2018 Normal [facility] Healthcare Comment on above: Performed By: #### G YN ####[facility] [id number] [place] [address] Uric Acidon 07-28-2018 Urate mass conc 5.2 mg/dL Invalid Interpretation Code 2.4 - 7 mg/dL [facility] Urate mass conc 5.2 mg/dL Normal 2.4-7.0 [facility] Comment on above: Performed By: #### U MARK ####Unless otherwise noted, all testing performed by [facility], [place] [id number]: [id number] Director: Simone Caal M.D. Vital Signs Date Time Vital Sign Value Performing Clinician Facility 07-30-2025 18:06-0400 Body temperature 98.2 [degF] Dr. Taty Julian MD Work Phone: 1(164)333-834065 [place] [address] 07-30-2025 18:06-0400 Diastolic blood pressure 69 mm[Hg] Dr. Taty Julian MD Work Phone: 4(076)293-195065 [place] [address] 07-30-2025 18:06-0400 Heart rate 63 /min Dr. Taty Julian MD Work Phone: 7(637)868-598765 [place] [address] 07-30-2025 18:06-0400 Respiratory rate 15 /min Dr. Taty Julian MD Work Phone: 8(386)309-645265 [place] [address] 07-30-2025 18:06-0400 SaO2% (BldA) [Mass fraction] 99 % Dr. Taty Julian MD Work Phone: 4(183)426-896065 [place] [address] 07-30-2025 18:06-0400 Systolic blood pressure 117 mm[Hg] Dr. Taty Julian MD Work Phone: 4(438)345-992865 [place] [address] 07-30-2025 12:48-0400 Body height 149.[address] Taty Julian MD Work Phone: 8(537)432-963065 [place] [address] 07-30-2025 12:48-0400 Body mass index (BMI) [Ratio] 37.3 kg/m2 Dr. Taty Julian MD Work Phone: 6(088)220-472965 [place] [address] 07-30-2025 12:48-0400 Body weight 83.[address] Taty Julian MD Work Phone: [facility] 07-12-2025 13:27-0400 Body temperature 98.1 [degF] Bill Shad Jr., DPM Work Phone: [facility] 07-12-2025 13:27-0400 Diastolic blood pressure 66 mm[Hg] Bill Shad Jr., DPM Work Phone: [facility] 07-12-2025 13:27-0400 Heart rate 66 /min Bill Shad Jr., DPM Work Phone: [facility] 07-12-2025 13:27-0400 Systolic blood pressure 104 mm[Hg] Bill Shad Jr., DPM Work Phone: [facility] 06-07-2025 08:08-0400 Body temperature 97.9 [degF] Bill Shad Jr., DPM Work Phone: [facility] 06-07-2025 08:08-0400 Diastolic blood pressure 69 mm[Hg] Bill Shad Jr., DPM Work Phone: [facility] 06-07-2025 08:08-0400 Heart rate 87 /min Bill Shad Jr., DPM Work Phone: [facility] 06-07-2025 08:08-0400 Systolic blood pressure 111 mm[Hg] Bill Shad Jr., DPM Work Phone: [facility] 04-24-2025 09:33-0400 Body height 149.[address] Taty Julian MD Work Phone: [facility] 04-24-2025 09:33-0400 Body mass index (BMI) [Ratio] 30.4 kg/m2 Dr. Taty Julian MD Work Phone: [facility] 04-24-2025 09:33-0400 Body weight 68.[address] Taty Julian MD Work Phone: [facility] 04-24-2025 09:33-0400 Diastolic blood pressure 66 mm[Hg] Dr. Taty Julian MD Work Phone: [facility] 04-24-2025 09:33-0400 Heart rate 74 /min Dr. Taty Julian MD Work Phone: [facility] 04-24-2025 09:33-0400 SaO2% (BldA) [Mass fraction] 96 % Dr. Taty Julian MD Work Phone: [facility] 04-24-2025 09:33-0400 Systolic blood pressure 107 mm[Hg] Dr. Taty Julian MD Work Phone: [facility] 04-10-2025 08:19-0400 Body height 150.5 cm Regan Noland MD Work Phone: [facility] 04-10-2025 08:19-0400 Body mass index (BMI) [Ratio] 30.04 kg/m2 Regan Noland MD Work Phone: [facility] 04-10-2025 08:19-0400 Body weight 68.04 kg Regan Noland MD Work Phone: [facility] 04-10-2025 08:19-0400 Diastolic blood pressure 68 mm[Hg] Regan Noland MD Work Phone: [facility] 04-10-2025 08:19-0400 Systolic blood pressure 108 mm[Hg] Regan Noland MD Work Phone: [facility] 03-15-2025 09:05-0400 Body height 149.9 cm Esteban Thapa MD Work Phone: [facility] 03-15-2025 09:05-0400 Body mass index (BMI) [Ratio] 30.94 kg/m2 Esteban Thapa MD Work Phone: [facility] 03-15-2025 09:05-0400 Body weight 69.49 kg Esteban Thapa MD Work Phone: [facility] 03-15-2025 09:05-0400 Diastolic blood pressure 68 mm[Hg] Esteban Thapa MD Work Phone: [facility] 03-15-2025 09:05-0400 Heart rate 80 /min Esteban Thapa MD Work Phone: [facility] 03-15-2025 09:05-0400 Systolic blood pressure 108 mm[Hg] Esteban Thapa MD Work Phone: [facility] 02-27-2025 07:16-0400 Body temperature 97.2 [degF] Dr. Taty Julian MD Work Phone: 0(866)184-427006 [address] 02-27-2025 07:16-0400 Diastolic blood pressure 63 mm[Hg] Dr. Taty Julian MD Work Phone: 4(603)972-850465 [place] [address] 02-27-2025 07:16-0400 Heart rate 73 /min Dr. Taty Julian MD Work Phone: 1(072)705-396465 [place] [address] 02-27-2025 07:16-0400 Respiratory rate 18 /min Dr. Taty Julian MD Work Phone: 5(231)706-050865 [place] [address] 02-27-2025 07:16-0400 SaO2% (BldA) [Mass fraction] 96 % Dr. Taty Julian MD Work Phone: 4(781)954-134465 [place] [address] 02-27-2025 07:16-0400 Systolic blood pressure 104 mm[Hg] Dr. Taty Julian MD Work Phone: 8(031)708-938865 [place] [address] 02-27-2025 05:59-0400 Body height 149.[address] Taty Julian MD Work Phone: 8(040)674-415965 [place] [address] 02-27-2025 05:59-0400 Body mass index (BMI) [Ratio] 31 kg/m2 Dr. Taty Julian MD Work Phone: 2(305)277-455665 [place] [address] 02-27-2025 05:59-0400 Body weight 69.[address] Taty Julian MD Work Phone: 7(802)101-994565 [place] [address] 12-29-2024 09:04-0400 Body height 149.[address] Taty Julian MD Work Phone: 2(984)868-194765 [place] [address] 12-29-2024 09:04-0400 Body mass index (BMI) [Ratio] 31.3 kg/m2 Dr. Taty Julian MD Work Phone: 1(185)535-017765 [place] [address] 12-29-2024 09:04-0400 Body temperature 98.3 [degF] Dr. Taty Julian MD Work Phone: 0(629)639-638865 [place] [address] 12-29-2024 09:04-0400 Body weight 70.[address] Taty Julian MD Work Phone: 9(474)173-471765 [place] [address] 12-29-2024 09:04-0400 Diastolic blood pressure 66 mm[Hg] Dr. Taty Julian MD Work Phone: 2(621)970-307065 [place] [address] 12-29-2024 09:04-0400 Heart rate 79 /min Dr. Taty Julian MD Work Phone: 7(626)603-313365 [place] [address] 12-29-2024 09:04-0400 Respiratory rate 16 /min Dr. Taty Julian MD Work Phone: 2(939)324-453465 [place] [address] 12-29-2024 09:04-0400 SaO2% (BldA) [Mass fraction] 98 % Dr. Taty Julian MD Work Phone: 7(641)128-620265 [place] [address] 12-29-2024 09:04-0400 Systolic blood pressure 100 mm[Hg] Dr. Taty Julian MD Work Phone: 0(037)778-354965 [place] [address] 12-09-2024 08:38-0500 Body mass index (BMI) [Ratio] 31.75 kg/m2 Taty Julian MD Work Phone: [facility] 12-09-2024 08:38-0500 Body weight 71.3 kg Taty Julian MD Work Phone: [facility] 12-09-2024 08:38-0500 Diastolic blood pressure 64 mm[Hg] Taty Julian MD Work Phone: [facility] 12-09-2024 08:38-0500 Heart rate 72 /min Taty Julian MD Work Phone: [facility] 12-09-2024 08:38-0500 Respiratory rate 18 /min Taty Julian MD Work Phone: [facility] 12-09-2024 08:38-0500 Systolic blood pressure 106 mm[Hg] Taty Julian MD Work Phone: [facility] 11-09-2024 15:45-0500 Body temperature 98.3 [degF] Dr. Taty Julian MD Work Phone: 0(575)198-179765 [place] [address] 11-09-2024 15:45-0500 Diastolic blood pressure 76 mm[Hg] Dr. Taty Julian MD Work Phone: 2(373)460-779965 [place] [address] 11-09-2024 15:45-0500 Heart rate 68 /min Dr. Taty Julian MD Work Phone: 7(347)444-692265 [place] [address] 11-09-2024 15:45-0500 Respiratory rate 16 /min Dr. Taty Julian MD Work Phone: 9(051)217-629365 [place] [address] 11-09-2024 15:45-0500 SaO2% (BldA) [Mass fraction] 95 % Dr. Taty Julian MD Work Phone: 3(046)059-574065 [place] [address] 11-09-2024 15:45-0500 Systolic blood pressure 123 mm[Hg] Dr. Taty Julian MD Work Phone: 0(250)948-934765 [place] [address] 11-09-2024 14:11-0500 Body mass index (BMI) [Ratio] 31.1 kg/m2 Dr. Taty Julian MD Work Phone: 5(607)707-932165 [place] [address] 11-09-2024 14:11-0500 Body weight [address] Taty Julian MD Work Phone: 4(800)368-926465 [place] [address] 09-28-2024 09:36-0500 Body mass index (BMI) [Ratio] 31.1 kg/m2 Dr. Taty Julian MD Work Phone: 3(610)587-295165 [place] [address] 09-28-2024 09:36-0500 Body weight 69.[address] Taty Julian MD Work Phone: [facility] 09-28-2024 09:36-0500 Diastolic blood pressure 59 mm[Hg] Dr. Taty Julian MD Work Phone: [facility] 09-28-2024 09:36-0500 Heart rate 77 /min Dr. Taty Julian MD Work Phone: [facility] 09-28-2024 09:36-0500 SaO2% (BldA) [Mass fraction] 97 % Dr. Taty Julian MD Work Phone: [facility] 09-28-2024 09:36-0500 Systolic blood pressure 107 mm[Hg] Dr. Taty Julian MD Work Phone: [facility] 06-08-2024 08:16-0400 Body temperature 98.29 [degF] Bill Kulkarni Jr., DPM Work Phone: [facility] 06-08-2024 08:16-0400 Diastolic blood pressure 67 mm[Hg] Bill Kulkarni Jr., DPM Work Phone: [facility] 06-08-2024 08:16-0400 Heart rate 85 /min Bill Kulkarni Jr., DPM Work Phone: [facility] 06-08-2024 08:16-0400 Systolic blood pressure 102 mm[Hg] Bill Kulkarni Jr., DPM Work Phone: [facility] 06-07-2024 09:08-0400 Body mass index (BMI) [Ratio] 30.9 kg/m2 Taty Julian MD Work Phone: [facility] 06-07-2024 09:08-0400 Body weight 69.4 kg Taty Julian MD Work Phone: [facility] 06-07-2024 09:08-0400 Diastolic blood pressure 64 mm[Hg] Taty Julian MD Work Phone: [facility] 06-07-2024 09:08-0400 Heart rate 82 /min Taty Julian MD Work Phone: [facility] 06-07-2024 09:08-0400 Respiratory rate 16 /min Taty Julian MD Work Phone: [facility] 06-07-2024 09:08-0400 Systolic blood pressure 102 mm[Hg] Taty Julian MD Work Phone: [facility] 03-15-2024 08:08-0400 Body height 151.1 cm Esteban Thapa MD Work Phone: [facility] 03-15-2024 08:08-0400 Body mass index (BMI) [Ratio] 30.94 kg/m2 Esteban Thapa MD Work Phone: [facility] 03-15-2024 08:08-0400 Body weight 70.67 kg Esteban Thapa MD Work Phone: [facility] 03-15-2024 08:08-0400 Diastolic blood pressure 71 mm[Hg] Esteban Thapa MD Work Phone: [facility] 03-15-2024 08:08-0400 Heart rate 77 /min Esteban Thapa MD Work Phone: [facility] 03-15-2024 08:08-0400 Systolic blood pressure 113 mm[Hg] Esteban Thapa MD Work Phone: [facility] 12-11-2023 08:41-0500 Body weight 72.08 kg Taty Julian MD Work Phone: [facility] 12-11-2023 08:41-0500 Diastolic blood pressure 62 mm[Hg] Taty Julian MD Work Phone: [facility] 12-11-2023 08:41-0500 Heart rate 74 /min Taty Julian MD Work Phone: [facility] 12-11-2023 08:41-0500 Respiratory rate 16 /min Taty Julian MD Work Phone: [facility] 12-11-2023 08:41-0500 Systolic blood pressure 112 mm[Hg] Taty Julian MD Work Phone: [facility] 12-02-2023 08:37-0500 Body height 149.[address] Taty Julian Work Phone: [facility] 12-02-2023 08:37-0500 Body mass index (BMI) [Ratio] 32.3 kg/m2 Dr. Taty Julian Work Phone: [facility] 12-02-2023 08:37-0500 Body temperature 96.7 [degF] Dr. Taty Julian Work Phone: [facility] 12-02-2023 08:37-0500 Body weight 72.[address] Taty Julian Work Phone: [facility] 12-02-2023 08:37-0500 Diastolic blood pressure 73 mm[Hg] Dr. Taty Julian Work Phone: [facility] 12-02-2023 08:37-0500 Heart rate 80 /min Dr. Taty Julian Work Phone: [facility] 12-02-2023 08:37-0500 Respiratory rate 14 /min Dr. Taty Julian Work Phone: [facility] 12-02-2023 08:37-0500 SaO2% (BldA) [Mass fraction] 96 % Dr. Taty Julian Work Phone: [facility] 12-02-2023 08:37-0500 Systolic blood pressure 110 mm[Hg] Dr. Taty Julian Work Phone: [facility] 10-01-2023 07:48-0500 Body temperature 98.29 [degF] ALBERTO Lim DPM Work Phone: [facility] 10-01-2023 07:48-0500 Diastolic blood pressure 72 mm[Hg] ALBERTO Lim DPM Work Phone: [facility] 10-01-2023 07:48-0500 Heart rate 80 /min CJ Hassmann DPM Work Phone: [facility] 10-01-2023 07:48-0500 Systolic blood pressure 111 mm[Hg] CJ Hassmann DPM Work Phone: [facility] 09-14-2023 08:15-0500 Body mass index (BMI) [Ratio] 32.5 kg/m2 Dr. Taty Julian Work Phone: [facility] 09-14-2023 08:15-0500 Body weight 73.[address] Taty Julian Work Phone: [facility] 09-14-2023 08:15-0500 Diastolic blood pressure 77 mm[Hg] Dr. Taty Julian Work Phone: [facility] 09-14-2023 08:15-0500 Heart rate 71 /min Dr. Taty Julian Work Phone: [facility] 09-14-2023 08:15-0500 SaO2% (BldA) [Mass fraction] 97 % Dr. Taty Julian Work Phone: [facility] 09-14-2023 08:15-0500 Systolic blood pressure 116 mm[Hg] Dr. Taty Julian Work Phone: [facility] 09-01-2023 13:24-0500 Body temperature 98.29 [degF] ALBERTO Cheekmann DPM Work Phone: [facility] 09-01-2023 13:24-0500 Diastolic blood pressure 72 mm[Hg] CJ Hassmann DPM Work Phone: [facility] 09-01-2023 13:24-0500 Heart rate 81 /min CJ Hassmann DPM Work Phone: [facility] 09-01-2023 13:24-0500 Systolic blood pressure 108 mm[Hg] CJ Hassmann DPM Work Phone: [facility] 08-10-2023 07:29-0400 Body temperature 97.8 [degF] Dr. Taty Julian Work Phone: [facility] 08-10-2023 07:29-0400 Diastolic blood pressure 81 mm[Hg] Dr. Taty Julian Work Phone: [facility] 08-10-2023 07:29-0400 Heart rate 68 /min Dr. Taty Julian Work Phone: [facility] 08-10-2023 07:29-0400 Respiratory rate 18 /min Dr. Taty Julian Work Phone: [facility] 08-10-2023 07:29-0400 SaO2% (BldA) [Mass fraction] 94 % Dr. Taty Julian Work Phone: [facility] 08-10-2023 07:29-0400 Systolic blood pressure 126 mm[Hg] Dr. Taty Julian Work Phone: [facility] 08-10-2023 06:20-0400 Body height 149.[address] Taty Julian Work Phone: [facility] 08-10-2023 06:20-0400 Body mass index (BMI) [Ratio] 33.3 kg/m2 Dr. Taty Julian Work Phone: [facility] 08-10-2023 06:20-0400 Body weight [address] Taty Julian Work Phone: [facility] 06-11-2023 08:54-0400 Body weight 74.66 kg Taty Julian MD Work Phone: [facility] 06-11-2023 08:54-0400 Diastolic blood pressure 80 mm[Hg] Taty Julian MD Work Phone: [facility] 06-11-2023 08:54-0400 Heart rate 76 /min Taty Julian MD Work Phone: [facility] 06-11-2023 08:54-0400 Respiratory rate 16 /min Taty Julian MD Work Phone: [facility] 06-11-2023 08:54-0400 Systolic blood pressure 124 mm[Hg] Taty Julian MD Work Phone: [facility] 06-03-2023 08:05-0400 Body temperature 98.2 [degF] Bill Kulkarni Jr., DPM Work Phone: [facility] 06-03-2023 08:05-0400 Diastolic blood pressure 73 mm[Hg] Bill Kulkarni Jr., DPM Work Phone: [facility] 06-03-2023 08:05-0400 Heart rate 79 /min Bill Kulkarni Jr., DPM Work Phone: [facility] 06-03-2023 08:05-0400 Systolic blood pressure 113 mm[Hg] Bill Kulkarni Jr., DPM Work Phone: [facility] 04-08-2023 07:45-0400 Body temperature 97.4 [degF] Dr. aTty Julian Work Phone: [facility] 04-08-2023 07:45-0400 Diastolic blood pressure 69 mm[Hg] Dr. Taty Julian Work Phone: [facility] 04-08-2023 07:45-0400 Heart rate 70 /min Dr. Taty Julian Work Phone: [facility] 04-08-2023 07:45-0400 Respiratory rate 16 /min Dr. Taty Julian Work Phone: [facility] 04-08-2023 07:45-0400 SaO2% (BldA) [Mass fraction] 98 % Dr. Taty Julian Work Phone: [facility] 04-08-2023 07:45-0400 Systolic blood pressure 132 mm[Hg] Dr. Taty Julian Work Phone: [facility] 04-08-2023 06:21-0400 Body height 149.[address] Taty Julian Work Phone: [facility] 04-08-2023 06:21-0400 Body mass index (BMI) [Ratio] 33.3 kg/m2 Dr. Taty Julian Work Phone: [facility] 04-08-2023 06:21-0400 Body weight [address] Taty Julian Work Phone: [facility] 04-07-2023 09:52-0400 Body height 153.01 cm Taty Julian Work Phone: [place] [address] [place] Work Phone: 04-07-2023 09:52-0400 Body mass index (BMI) [Ratio] 31.86 kg/m2 Taty Julian Work Phone: [place] [address] [place] Work Phone: 04-07-2023 09:52-0400 Body surface area Derived from formula 1.72 m2 Taty Julian Work Phone: [place] [address] [place] Work Phone: 04-07-2023 09:52-0400 Body weight 74.6 kg Taty Julian Work Phone: [place] [address] [place] Work Phone: 04-07-2023 09:52-0400 Diastolic blood pressure 70 mm[Hg] Taty Julian Work Phone: [place] [address] [place] Work Phone: 04-07-2023 09:52-0400 Systolic blood pressure 118 mm[Hg] Taty Julian Work Phone: [place] [address] [place] Work Phone: 03-20-2023 09:55-0400 Body height 149.[address] Taty Julian Work Phone: [facility] 03-20-2023 09:55-0400 Body mass index (BMI) [Ratio] 33.1 kg/m2 Dr. Taty Julian Work Phone: [facility] 03-20-2023 09:55-0400 Body temperature 97.8 [degF] Dr. Taty Julian Work Phone: [facility] 03-20-2023 09:55-0400 Body weight 74.[address] Taty Julian Work Phone: [facility] 03-20-2023 09:55-0400 Diastolic blood pressure 74 mm[Hg] Dr. Taty Julian Work Phone: [facility] 03-20-2023 09:55-0400 Heart rate 77 /min Dr. Taty Julian Work Phone: [facility] 03-20-2023 09:55-0400 Respiratory rate 16 /min Dr. Taty Julian Work Phone: [facility] 03-20-2023 09:55-0400 SaO2% (BldA) [Mass fraction] 95 % Dr. Taty Julian Work Phone: [facility] 03-20-2023 09:55-0400 Systolic blood pressure 117 mm[Hg] Dr. Taty Julian Work Phone: [facility] 02-27-2023 13:32-0400 Body temperature 97.9 [degF] Bill Kulkarni Jr. DPM Work Phone: [facility] 02-27-2023 13:32-0400 Diastolic blood pressure 74 mm[Hg] Bill Kulkarni Jr. DPM Work Phone: [facility] 02-27-2023 13:32-0400 Heart rate 79 /min Bill Kulkarni Jr., DPM Work Phone: [facility] 02-27-2023 13:32-0400 Systolic blood pressure 126 mm[Hg] Bill Kulkarni Jr., DPM Work Phone: [facility] 01-21-2023 16:00-0400 Body temperature 97.5 [degF] Dr. Taty Julian Work Phone: [facility] 01-21-2023 16:00-0400 Diastolic blood pressure 68 mm[Hg] Dr. Taty Julian Work Phone: 4(522)127-807508 [place] [address] 01-21-2023 16:00-0400 Heart rate 68 /min Dr. Taty Julian Work Phone: 5(545)[phone] [place] [address] 01-21-2023 16:00-0400 Respiratory rate 18 /min Dr. Taty Julian Work Phone: 7(734)[phone] [place] [address] 01-21-2023 16:00-0400 SaO2% (BldA) [Mass fraction] 95 % Dr. Taty Julian Work Phone: 2(213)608-579508 [place] [address] 01-21-2023 16:00-0400 Systolic blood pressure 110 mm[Hg] Dr. Taty Julian Work Phone: 2(312)753-918508 [place] [address] 01-21-2023 04:10-0400 Inhaled oxygen flow rate 2 L/min Dr. Taty Julian Work Phone: [facility] 01-19-2023 10:53-0400 Body height 149.[address] Taty Julian Work Phone: 9(767)581-416108 [place] [address] 01-19-2023 10:53-0400 Body weight [address] Taty Julian Work Phone: [facility] 01-18-2023 17:03-0400 Body mass index (BMI) [Ratio] 33.8 kg/m2 Dr. Taty Julian Work Phone: [facility] 01-18-2023 15:37-0400 Body temperature 97.4 [degF] [facility] 01-18-2023 15:37-0400 Diastolic blood pressure 81 mm[Hg] [facility] 01-18-2023 15:37-0400 Heart rate 114 /min [facility] 01-18-2023 15:37-0400 Respiratory rate 20 /min [facility] 01-18-2023 15:37-0400 SaO2% (BldA) [Mass fraction] 98 % [facility] 01-18-2023 15:37-0400 Systolic blood pressure 108 mm[Hg] [facility] 01-18-2023 11:54-0400 Body mass index (BMI) [Ratio] 33.9 kg/m2 [facility] 01-18-2023 11:54-0400 Body weight 78.8 kg [facility] 01-18-2023 10:36-0400 Body height 152.4 cm [facility] 12-04-2022 08:45-0500 Body weight 76.66 kg Taty Julian MD Work Phone: [facility] 12-04-2022 08:45-0500 Diastolic blood pressure 86 mm[Hg] Taty Julian MD Work Phone: [facility] 12-04-2022 08:45-0500 Heart rate 72 /min Taty Julian MD Work Phone: [facility] 12-04-2022 08:45-0500 Respiratory rate 16 /min Taty Julian MD Work Phone: [facility] 12-04-2022 08:45-0500 Systolic blood pressure 132 mm[Hg] Taty Julian MD Work Phone: [facility] 08-27-2022 11:45-0500 Body temperature 98.29 [degF] Bill Kulkarni Jr., DPM Work Phone: [facility] 08-27-2022 11:45-0500 Diastolic blood pressure 68 mm[Hg] Bill Kulkarni Jr., DPM Work Phone: [facility] 08-27-2022 11:45-0500 Heart rate 82 /min Bill Kulkarni Jr., DPM Work Phone: [facility] 08-27-2022 11:45-0500 Systolic blood pressure 113 mm[Hg] Bill Kulkarni Jr., DPM Work Phone: [facility] 07-17-2022 08:11-0400 Body temperature 98.2 [degF] ALBERTO Lim DPM Work Phone: [facility] 07-17-2022 08:11-0400 Diastolic blood pressure 73 mm[Hg] CJ Hassmann DPM Work Phone: [facility] 07-17-2022 08:11-0400 Heart rate 88 /min CJ Hassmann DPM Work Phone: [facility] 07-17-2022 08:11-0400 Systolic blood pressure 124 mm[Hg] CJ Hassmann DPM Work Phone: [facility] 07-11-2022 08:45-0400 Diastolic blood pressure 55 mm[Hg] Nadia Dumont MD Work Phone: [facility] 07-11-2022 08:45-0400 Heart rate 81 /min Nadia Dumont MD Work Phone: [facility] 07-11-2022 08:45-0400 Respiratory rate 16 /min Nadia Dumont MD Work Phone: [facility] 07-11-2022 08:45-0400 SaO2% (BldA) [Mass fraction] 95 % Nadia Dumont MD Work Phone: [facility] 07-11-2022 08:45-0400 Systolic blood pressure 102 mm[Hg] Nadia Dumont MD Work Phone: [facility] 07-11-2022 07:20-0400 Body temperature 97.81 [degF] Nadia Dumont MD Work Phone: [facility] 2022 09:15-0400 Body temperature 98.49 [degF] CJ Hassmann DPM Work Phone: [facility] 2022 09:15-0400 Diastolic blood pressure 73 mm[Hg] CJ Hassmann DPM Work Phone: [facility] 2022 09:15-0400 Heart rate 86 /min CJ Hassmann DPM Work Phone: [facility] 2022 09:15-0400 Systolic blood pressure 111 mm[Hg] CJ Hassmann DPM Work Phone: [facility] 06-24-2022 09:53-0400 Body temperature 98.4 [degF] ALBERTO Lim DPM Work Phone: [facility] 06-24-2022 09:53-0400 Diastolic blood pressure 68 mm[Hg] CJ Hammann DPM Work Phone: [facility] 06-24-2022 09:53-0400 Heart rate 80 /min ALBERTO Cheekmann DPM Work Phone: [facility] 06-24-2022 09:53-0400 Systolic blood pressure 117 mm[Hg] ALBERTO Cheekmann DPM Work Phone: [facility] 06-20-2022 13:25-0400 Body temperature 97.9 [degF] Bill Marinon Jr., DPM Work Phone: [facility] 06-20-2022 13:25-0400 Diastolic blood pressure 72 mm[Hg] Bill Shad Jr., DPM Work Phone: [facility] 06-20-2022 13:25-0400 Heart rate 80 /min Bill Shad Jr., DPM Work Phone: [facility] 06-20-2022 13:25-0400 Systolic blood pressure 134 mm[Hg] Bill Shad Jr., DPM Work Phone: [facility] 06-18-2022 08:00-0400 Body temperature 98.2 [degF] Bill Shad Jr., DPM Work Phone: [facility] 06-18-2022 08:00-0400 Diastolic blood pressure 73 mm[Hg] Bill Shad Jr., DPM Work Phone: [facility] 06-18-2022 08:00-0400 Heart rate 93 /min Bill Shad Jr., DPM Work Phone: [facility] 06-18-2022 08:00-0400 Systolic blood pressure 125 mm[Hg] Bill Shad Jr., DPM Work Phone: [facility] 06-17-2022 08:06-0400 Body height 149.9 cm Nina Wil PA-C Work Phone: [facility] 06-17-2022 08:06-0400 Body temperature 97 [degF] Nina [place] PA-C Work Phone: [facility] 06-17-2022 08:06-0400 Body weight 78.47 kg Nina [place] PA-C Work Phone: [facility] 06-17-2022 08:06-0400 Diastolic blood pressure 64 mm[Hg] Nina [place] PA-C Work Phone: [facility] 06-17-2022 08:06-0400 Heart rate 110 /min Nina [place] PA-C Work Phone: [facility] 06-17-2022 08:06-0400 SaO2% (BldA) [Mass fraction] 100 % Nina [place] PA-C Work Phone: [facility] 06-17-2022 08:06-0400 Systolic blood pressure 128 mm[Hg] Nina Wil PA-C Work Phone: [facility] 06-02-2022 08:07-0400 Body weight 79.2 kg Taty Julian MD Work Phone: [facility] 06-02-2022 08:07-0400 Diastolic blood pressure 84 mm[Hg] Taty Julian MD Work Phone: [facility] 06-02-2022 08:07-0400 Heart rate 80 /min Taty Julian MD Work Phone: [facility] 06-02-2022 08:07-0400 Respiratory rate 16 /min Taty Julian MD Work Phone: [facility] 06-02-2022 08:07-0400 Systolic blood pressure 136 mm[Hg] Taty Julian MD Work Phone: [facility] 03-19-2022 07:59-0400 Body temperature 98.1 [degF] Bill Shad Jr., DPM Work Phone: [facility] 03-19-2022 07:59-0400 Diastolic blood pressure 75 mm[Hg] Bill Shad Jr., DPM Work Phone: [facility] 03-19-2022 07:59-0400 Heart rate 82 /min Bill Shad Jr., DPM Work Phone: [facility] 03-19-2022 07:59-0400 Systolic blood pressure 126 mm[Hg] Bill Shad Jr., DPM Work Phone: [facility] 02-18-2022 11:25-0400 Body temperature 98.01 [degF] Bill Shad Jr., DPM Work Phone: [facility] 02-18-2022 11:25-0400 Diastolic blood pressure 74 mm[Hg] Bill Shad Jr., DPM Work Phone: [facility] 02-18-2022 11:25-0400 Heart rate 89 /min Bill Shad Jr., DPM Work Phone: [facility] 02-18-2022 11:25-0400 Systolic blood pressure 130 mm[Hg] Bill Shad Jr., DPM Work Phone: [facility] 12-18-2021 08:03-0500 Body temperature 98.1 [degF] Bill Shad Jr., DPM Work Phone: [facility] 12-18-2021 08:03-0500 Diastolic blood pressure 73 mm[Hg] Bill Shad Jr., DPM Work Phone: [facility] 12-18-2021 08:03-0500 Heart rate 80 /min Bill Shad Jr., DPM Work Phone: [facility] 12-18-2021 08:03-0500 Systolic blood pressure 123 mm[Hg] Bill Shad Jr., DPM Work Phone: [facility] 10-09-2021 08:35-0500 Body temperature 97.81 [degF] Bill Shad Jr., DPM Work Phone: [facility] 10-09-2021 08:35-0500 Diastolic blood pressure 78 mm[Hg] Bill Shad Jr., DPM Work Phone: [facility] 10-09-2021 08:35-0500 Heart rate 93 /min Bill Shad Jr., DPM Work Phone: [facility] 10-09-2021 08:35-0500 Systolic blood pressure 144 mm[Hg] Bill Shad Jr., DPM Work Phone: [facility] 09-20-2021 08:04-0500 Body temperature 98.1 [degF] Bill Shad Jr., DPM Work Phone: [facility] 09-20-2021 08:04-0500 Diastolic blood pressure 72 mm[Hg] Bill Shad Jr., DPM Work Phone: [facility] 09-20-2021 08:04-0500 Heart rate 91 /min Bill Shad Jr., DPM Work Phone: [facility] 09-20-2021 08:04-0500 Systolic blood pressure 131 mm[Hg] Bill Shad Jr., DPM Work Phone: [facility] 08-23-2021 08:10-0400 Body temperature 97.7 [degF] Bill Shad Jr., DPM Work Phone: [facility] 08-23-2021 08:10-0400 Diastolic blood pressure 69 mm[Hg] Bill Shad Jr., DPM Work Phone: [facility] 08-23-2021 08:10-0400 Heart rate 82 /min Bill Shad Jr., DPM Work Phone: [facility] 08-23-2021 08:10-0400 Systolic blood pressure 135 mm[Hg] Bill Shad Jr., DPM Work Phone: [facility] 05-24-2021 08:12-0400 Body temperature 97.2 [degF] Bill Shad Jr., DPM Work Phone: [facility] 05-24-2021 08:12-0400 Diastolic blood pressure 80 mm[Hg] Bill Shad Jr., DPM Work Phone: [facility] 05-24-2021 08:12-0400 Heart rate 88 /min Bill Shad Jr., DPM Work Phone: [facility] 05-24-2021 08:12-0400 Systolic blood pressure 143 mm[Hg] Bill Shad Jr., DPM Work Phone: [facility] 03-29-2021 13:30-0400 Body height 149.9 cm Bill Shad Jr., DPM Work Phone: [facility] 03-29-2021 13:30-0400 Body mass index (BMI) [Ratio] 35.55 kg/m2 Bill Shad Jr., DPM Work Phone: [facility] 03-29-2021 13:30-0400 Body weight 79.83 kg Bill Dulon Jr., DPM Work Phone: [facility] 08-24-2020 13:30-0500 Diastolic blood pressure 65 mm[Hg] Bill Shad Jr., DPM Work Phone: [facility] 08-24-2020 13:30-0500 Systolic blood pressure 119 mm[Hg] Bill Shad Jr., DPM Work Phone: [facility] Encounters Encounter Date Encounter Type Care Provider Facility Start: 08-09-2025 End: 08-09-2025 ambulatory UNKNOWN PROVIDER Facility:[facility] Start: 08-02-2025 End: 08-02-2025 ambulatory TATY JULIAN Facility:[facility] Start: 08-02-2025 End: 08-02-2025 ambulatory SARA COLÓNO Facility:[facility] Start: 07-30-2025 End: 07-30-2025 Emergency department patient visit Sergey Brennan Facility:[facility] Start: 07-30-2025 End: 07-30-2025 ambulatory JOB ORELLANA Facility:[facility] Start: 07-19-2025 End: 07-19-2025 Orders Only Bill MCKEONM Work Phone: [facility] Comment on above: History of removal o f retained hardware (Primary Dx) Start: 07-12-2025 End: 07-12-2025 Office outpatient visit 15 minutes Bill MCKEONM Work Phone: [facility] Comment on above: Diabetic polyneuropa thy associated with type 2 diabetes mellitus (HCC) (Primary Dx); History of removal of retained hardware Start: 07-12-2025 End: 07-12-20[facility] Start: 06-28-2025 End: 06-28-2025 Patient encounter procedure Collin Carlson MD Work Phone: [facility] Comment on above: Numbness (Primary Dx ); Diabetic polyneuropathy associated with type 2 diabetes mellitus (HCC) Start: 06-28-2025 End: 06-28-2025 ambulatory BILL KULKARNI JR. [facility] Start: 06-20-2025 ambulatory TATY JULIAN Facil ity:[facility] Start: 06-20-2025 End: 06-20-2025 Patient encounter status Screen [facility] Start: 06-20-2025 End: 06-20-2025 Subsequent hospital visit by physician Screen Mammo [facility] Comment on above: Encounter for gyneco logical examination (general) (routine) without abnormal findings [Z01.419] Start: 06-07-2025 End: 06-07-2025 Office outpatient visit 25 minutes Bill Kulkarni DPM Work Phone: [facility] Comment on above: Diabetic polyneuropa thy associated with type 2 diabetes mellitus (HCC) (Primary Dx); 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 Start: 06-07-2025 End: 06-07-2025 ambulatory TATY JULIAN [facility] Start: 05-30-2025 End: 05-30-2025 Subsequent hospital visit by physician [facility] Comment on above: Segmental and somati c dysfunction of thoracic region; Spondylosis without myelopathy or radiculopathy, thoracic region; Pain in thoracic spine Start: 05-30-2025 End: 05-30-2025 ambulatory [facility] Start: 05-19-2025 End: 05-19-2025 Subsequent hospital visit by physician Gumaro X-Ray Fluoro 1 [facility] Comment on above: Spondylosis without myelopathy or radiculopathy, cervical region; Spondylosis without myelopathy or radiculopathy, lumbar region Segmental and somati c dysfunction of cervical region; Segmental and somatic dysfunction of lumbar region Start: 05-19-2025 End: 05-19-2025 ambulatory [facility] Start: 05-15-2025 End: 05-15-2025 Telephone encounter Taty Julian MD Work Phone: [facility] Comment on above: Medication Question Insurance Authorizat ion Start: 05-03-2025 End: 05-03-[address] Taty Julian MD Work Phone: -Ultrasound [facility] Start: 05-03-2025 End: 05-03-[address] Tima Worrell MD -Ultrasound [facility] Work Phone: Start: 05-03-2025 End: 05-03-2025 ambulatory Tima Worrell Facility:[facility] Start: 04-24-2025 End: 04-24-[address] Tima Worrell MD -[facility] Work Phone: Start: 04-24-2025 End: 04-24-[address] Taty Julian MD Work Phone: [facility] Start: 04-19-2025 End: 06-19-2025 Follow-up encounter Regan Noland MD Work Phone: OB/Gynecology Start: 04-18-2025 End: 04-18-[address] Taty Julian MD Work Phone: -Laboratory Start: 04-18-2025 End: 04-18-[address] Tima Worrell MD -Laboratory Work Phone: Start: 04-17-2025 End: 04-18-2025 Refill Taty Julian MD Work Phone: [facility] Comment on above: Refill Request Start: 04-14-2025 End: 04-14-2025 Patient encounter procedure [employer] [facility]ne[facility] Start: 04-14-2025 End: 04-14-2025 ambulatory [employer] [facility] [employer] Work Phone: OB/Gynecology Start: 04-10-2025 End: 04-10-2025 Patient encounter procedure Regan Noland MD Work Phone: OB/Gynecology Comment on above: Encounter for gyneco logical examination (general) (routine) without abnormal findings (Primary Dx); Screening for cervical cancer; Encounter for screening mammogram for breast cancer; Adnexal fullness; Cirrhosis of liver without ascites, unspecified hepatic cirrhosis type (HCC) Start: 04-10-2025 End: 04-10-2025 Patient encounter status Regan Noland MD Work Phone: [facility] Start: 04-10-2025 End: 04-10-2025 ambulatory TATY JULIAN Facility:[facility] Start: 04-10-2025 Encounter for gynecological examination (general) (routine) without abnormal findings REGAN NOLAND [facility] Start: 03-15-2025 End: 03-15-2025 Office outpatient visit 15 minutes Esteban Thapa MD Work Phone: [facility] Comment on above: Migraine with aura a nd without status migrainosus, not intractable (Primary Dx); Primary insomnia Start: 03-15-2025 End: 03-15-2025 ambulatory [facility] Start: 03-14-2025 End: 03-14-2025 Refill Taty Julian MD Work Phone: [facility] Comment on above: Refill Request Start: 03-10-2025 End: 03-10-2025 ambulatory TATY JULIAN Facility:[facility] Start: 03-02-2025 End: 03-02-2025 ambulatory TATY JULIAN Facility:[facility] Start: 02-27-2025 ambulatory Toño Curtis Facility :[facility] Start: 02-27-2025 Non-patient / Non-visit Toño Lonny lakshmi DO -WC-[facility] Start: 02-27-2025 End: 02-27-2025 Admission to same day surgery center Toño Curtis DO -Endoscopy Work Phone: Start: 02-27-2025 End: 02-27-[address] Taty Julian MD Work Phone: [facility] Work Phone: Start: 12-30-2024 End: 12-30-[address] Taty Julian MD Work Phone: [facility] Work Phone: Start: 12-30-2024 End: 12-30-[address] Tima Worrell MD -Laboratory, Specimen Work Phone: Start: 12-29-2024 End: 12-29-[address] Tima Worrell MD -[facility] Work Phone: Start: 12-29-2024 End: 12-30-2024 ambulatory Tima Worrell Facility:[facility] Start: 12-26-2024 End: 12-26-[address] Taty Julian MD Work Phone: -Speech Therapy Start: 12-26-2024 End: 12-26-[address] Tima Worrell MD -Speech Therapy Work Phone: Start: 12-26-[address] Nasir Worrell MD -Speech Therapy Work Phone: Start: 12-24-2024 End: 12-24-[address] Taty Julian MD Work Phone: [facility] Work Phone: Start: 12-24-2024 End: 12-24-[address] Tima Worrell MD -Laboratory Work Phone: Start: 12-24-2024 End: 12-24-2024 ambulatory Tima Worrell Facility:[facility] Start: 12-09-2024 End: 12-09-2024 Telephone encounter Taty Julian MD Work Phone: [facility] [place] Comment on above: Insurance Authorizat ion Start: 12-09-2024 End: 12-09-2024 ambulatory TTAY JULIAN Facility:[facility] Start: 12-09-2024 End: 12-09-2024 Patient encounter procedure Taty Julian MD Work Phone: [facility] [place] Comment on above: Type 2 diabetes nohemy itus without complication, without long- term current use of insulin (HCC) (Primary Dx); Hypothyroidism, unspecified type; Hyperlipidemia, mixed; Gout, unspecified cause, unspecified chronicity, unspecified site; Intractable migraine without aura and without status migrainosus; Anemia, unspecified type; Elevated LFTs; Esophageal varices without bleeding, unspecified esophageal varices type (HCC); Globus sensation; Hepatic cirrhosis, unspecified hepatic cirrhosis type, unspecified whether ascites present (HCC) Start: 11-29-2024 End: 11-29-2024 ambulatory TATY JULIAN Facility:[facility] Start: 11-10-2024 End: 11-10-2024 Willy Thapa MD Work Phone: [facility] Start: 11-09-2024 End: 11-09-2024 ambulatory Laury Frederick Facility:[facility] Start: 11-09-2024 End: 11-09-2024 Non-patient / Non-visit Dr. Laury Frederick MD -[facility] Work Phone: Start: 11-09-2024 Non-patient / Non-visit Toño Mukherjee nd DO -[facility] Start: 11-09-2024 End: 11-09-2024 Admission to same day surgery center Toño Curtis DO -Endoscopy Work Phone: Start: 11-09-2024 End: 11-09-2024 ambulatory Toño Curtis Facility:[facility] Start: 10-14-2024 End: 10-14-[address] Tima Worrell MD -Ultrasound, [facility] Work Phone: Start: 10-14-2024 End: 10-14-2024 ambulatory [facility] Facility:[facility] Start: 10-04-2024 End: 10-04-2024 Telephone encounter Taty Julian MD Work Phone: Family [facility] Comment on above: Orders ([facility] Health p oint-swallowing eval and tx for dysphagia) Start: 09-28-2024 End: 09-28-[address] Tima Worrell MD -[facility] Work Phone: Start: 09-28-2024 End: 09-28-2024 ambulatory Tima Worrell Facility:[facility] Start: 09-20-2024 End: 09-20-[address] Tima Worrell MD -Laboratory Work Phone: Start: 09-20-2024 End: 09-20-2024 ambulatory Timalatonia Worrell Facility:[facility] Start: 07-13-2024 End: 07-13-2024 Subsequent hospital visit by physician [facility] Work Phone: Radiology Comment on above: Abnormal mammogram [ R92.8] Start: 06-21-2024 End: 06-22-2024 Documentation procedure Mammography Coord[facility] Start: 06-21-2024 End: 06-22-2024 Letter encounter Mammography Coordinator [facility] Start: 06-21-2024 End: 06-21-2024 Telephone encounter Isrrael Bruner NAVID Work Phone: [facility] [place] Comment on above: Results Start: 06-17-2024 End: 06-17-2024 Subsequent hospital visit by physician [facility] Comment on above: Encounter for screen ing mammogram for breast cancer [Z12.31] Start: 06-08-2024 End: 06-08-2024 Office outpatient visit 15 minutes Bill Kulkarni DPM Work Phone: [facility] Comment on above: Acute gout due to re nal impairment involving right foot (Primary Dx) Start: 06-07-2024 End: 06-07-2024 Patient encounter procedure Taty Julian MD Work Phone: [facility] Comment on above: Type 2 diabetes nohemy itus without complication, without long- term current use of insulin (HCC) (Primary Dx); Hypothyroidism, unspecified type; Hyperlipidemia, mixed; Gout, unspecified cause, unspecified chronicity, unspecified site; Intractable migraine without aura and without status migrainosus; Anemia, unspecified type; Elevated LFTs; Screening for depression; Encounter for screening examination for other mental health and behavioral disorders Start: 05-18-2024 ambulatory Taty nelson MD Work Phone: Internal Medicine [facility] Start: 03-16-2024 Telephone encounter Taty negrete MD Work Phone: [facility] Comment on above: Trulicity Start: 03-15-2024 Telephone encounter Esteban valladares MD Work Phone: [facility] Comment on above: Med Management (farooq pentin (Neurontin) 400 MG capsule) Start: 03-15-2024 End: 03-15-2024 Office outpatient visit 25 minutes Esteban Thapa MD Work Phone: [facility] Comment on above: Migraine with aura a nd without status migrainosus, not intractable (Primary Dx); Primary insomnia Start: 02-23-[address] Taty Julian Work Phone: [facility]-Laboratory Work Phone: Start: 02-17-2024 End: 02-17-[address] Taty Julian Work Phone: [facility] Work Phone: Start: 02-17-2024 End: 02-17-[address] Taty Julian Work Phone: [facility]-Nuclear Medicine, [facility] Work Phone: Start: 12-16-2023 End: 12-16-[address] Taty Julian Work Phone: [facility] Work Phone: Start: 12-16-2023 End: 12-16-[address] Taty Julian Work Phone: [facility]-Cat Scan, [facility] Work Phone: Start: 12-11-2023 End: 12-11-2023 Patient encounter procedure Taty Julian MD Work Phone: [facility] Comment on above: Type 2 diabetes nohemy itus without complication, without long- term current use of insulin (HCC) (Primary Dx); Hypothyroidism, unspecified type; Cough; Globus sensation; Hyperlipidemia, mixed; Urinary frequency; Esophageal varices without bleeding, unspecified esophageal varices type ([facility]); Disorder involving thrombocytopenia ([facility]); Recurrent UTI (urinary tract infection); Gout, unspecified cause, unspecified chronicity, unspecified site Start: 12-02-2023 End: 12-02-[address] Taty Julian Work Phone: [facility] Work Phone: Start: 11-24-2023 End: 11-24-[address] Taty Julian Work Phone: [facility]-Laboratory Work Phone: Start: 10-01-2023 End: 10-01-2023 Office outpatient visit 15 minutes ALBERTO Lim DPM Work Phone: [facility] Comment on above: Peroneal tendonitis of right lower extremity (Primary Dx); Acute right ankle pain; Arthritis of subtalar joint Start: 09-14-2023 End: 09-14-[address] Taty Julian Work Phone: [facility] Work Phone: Start: 09-01-2023 End: 09-01-2023 Office outpatient visit 15 minutes ALBERTO Lim DPM Work Phone: [facility] Comment on above: Peroneal tendonitis of right lower extremity (Primary Dx); Acute right ankle pain; Arthritis of subtalar joint Start: 08-10-2023 Non-patient / Non-visit Dr. Emiliano Julian Work Phone: [facility] Start: 08-10-2023 End: 08-10-2023 Admission to same day surgery center Dr. Taty Julian Work Phone: [facility]-Endoscopy Work Phone: Start: 08-10-2023 End: 08-10-[address] Taty Julian Work Phone: [facility] Work Phone: Start: 06-19-2023 End: 06-19-[address] Taty Julian Work Phone: [facility] Work Phone: Start: 06-19-2023 End: 06-19-[address] Taty Julian Work Phone: [facility]-Laboratory Work Phone: Start: 06-11-2023 End: 06-11-2023 Patient encounter procedure Taty Julian MD Work Phone: [facility] Comment on above: Type 2 diabetes nohemy itus without complication, without long- term current use of insulin (HCC) (Primary Dx); Hypothyroidism, unspecified type; Hyperlipidemia, mixed; Gout, unspecified cause, unspecified chronicity, unspecified site; Anemia, unspecified type; Disorder involving thrombocytopenia (HCC); Hepatic cirrhosis, unspecified hepatic cirrhosis type, unspecified whether ascites present (HCC); Gastrointestinal hemorrhage with hematemesis; Intractable migraine without aura and without status migrainosus; Globus sensation; Need for vaccination Start: 06-03-2023 End: 06-03-2023 Office outpatient visit 15 minutes Bill Kulkarni DPMarek Work Phone: [facility] Comment on above: Acute gout due to re nal impairment involving right foot Start: 04-27-2023 End: 04-27-[address] Taty Julian Work Phone: [facility] Work Phone: Start: 04-15-2023 Chart Update Taty Lagunas ock Work Phone: [employer] Work Phone: Start: 04-15-[address] Taty Julian Facility:[id number] Start: 04-14-2023 Chart Update Taty Lagunas ock Work Phone: [employer] Work Phone: Start: 04-08-2023 Encounter for gynecological examination (general) (routine) without abnormal findings Dr. Esteban Hubbard [facility] Start: 04-08-2023 Non-patient / Non-visit Dr. Emiliano Julian Work Phone: [facility] Start: 04-08-2023 End: 04-08-2023 Admission to same day surgery center Dr. Taty Julian Work Phone: [facility]-Endoscopy Start: 04-08-2023 End: 04-08-[address] Taty Julian Work Phone: [facility] Work Phone: Start: 04-07-2023 Patient encounter procedure Taty Julian Work Phone: [address] Work Phone: Start: 04-07-2023 Encounter for gynecological examination (general) (routine) without abnormal findings Dr. Esteban Hubbard Facility:[facility] Start: 04-07-[address] Esteban Hubbard Facility:[facility] Start: 04-02-2023 End: 04-02-[address] Taty Julian Work Phone: [facility]-Ultrasound, [facility] Start: 03-20-2023 End: 03-20-[address] Taty Julian Work Phone: [facility] Work Phone: Start: 03-20-2023 End: 03-20-[address] Taty Julian Work Phone: [facility]-Laboratory Start: 03-20-2023 End: 03-20-[address] Taty Julian Work Phone: [facility] Start: 03-19-2023 End: 03-23-2023 ambulatory BILL KULKARNI [facility] Start: 03-13-2023 Telephone encounter Lucero Lemons [facility] Start: 03-11-2023 ambulatory Taty nelson MD Work Phone: [facility] [place] Start: 02-27-2023 End: 02-27-2023 Office outpatient visit 15 minutes Bill Kulkarni DPM Work Phone: [facility] Comment on above: Acute gout due to re nal impairment involving right foot (Primary Dx) Start: 02-18-2023 Refill Taty nelson MD Work Phone: [facility] [place] Comment on above: Refill Request Start: 02-04-2023 Refill ALBERTO Lim DPM Work Phone: [facility] Comment on above: Acute gout due to re nal impairment involving right foot Start: 01-28-2023 Telephone encounter Mago Carlson nhof CMM OPERATOR.VISUAL BASIC DEVELOPER Work Phone: [facility] Comment on above: Results (Labs ) Start: 01-23-2023 Patient Outreach Taty can MD Work Phone: [facility] Comment on above: Transition Of Care Start: 01-21-2023 Non-patient / Non-visit Dr. Emiliano Julian Work Phone: [facility] Start: 01-20-2023 Non-patient / Non-visit Dr. Emiliano Julian Work Phone: [facility] Start: 01-20-2023 Non-patient / Non-visit Dr. Emiliano Julian Work Phone: [facility] Inpatient Physicians Start: 01-19-2023 Non-patient / Non-visit Dr. Emiliano Julian Work Phone: [facility] Start: 01-19-2023 End: 01-19-2023 Non-patient / Non-visit Dr. Taty Julian Work Phone: [facility] Start: 01-18-2023 Non-patient / Non-visit Dr. Emiliano Julian Work Phone: [facility] Start: 01-18-2023 End: 01-21-2023 Evaluation and management of inpatient [facility]-Progressive Care Unit Start: 01-06-2023 Telephone encounter Taty negrete MD Work Phone: [facility] Comment on above: Patient Update; Christina ent Request Start: 12-04-2022 End: 12-04-2022 Patient encounter procedure Taty Julian MD Work Phone: [facility] Comment on above: Type 2 diabetes nohemy itus without complication, without long- term current use of insulin (HCC) (Primary Dx); Hypothyroidism, unspecified type; Hyperlipidemia, mixed; Elevated LFTs; Anemia, unspecified type; Gout, unspecified cause, unspecified chronicity, unspecified site; Choking episode; Epigastric pain; Cough; Globus sensation; Intractable migraine without aura and without status migrainosus Start: 11-19-2022 Telephone encounter Taty negrete MD Work Phone: [facility] [place] Comment on above: Medication Problem Start: 11-13-2022 Telephone encounter Esteban valladares MD Work Phone: [facility] Comment on above: Medication Problem Start: 09-10-2022 End: 09-14-2022 ambulatory [facility] Start: 08-27-2022 End: 08-27-2022 Postop follow up visit related to original px Bill Kulkarni DPM Work Phone: [facility] Pod[facility] Comment on above: Closed displaced fra cture of fifth metatarsal bone of left foot, initial encounter (Primary Dx) Start: 07-18-2022 Telephone encounter Nadia Barros MD Work Phone: General Surgery Comment on above: Results Start: 07-17-2022 End: 07-17-2022 Follow-up encounter ALBERTO Lim DPM Work Phone: [facility] Comment on above: Postoperative state (Primary Dx); Closed displaced fracture of fifth metatarsal bone of left foot with routine healing, subsequent encounter Start: 07-11-2022 End: 07-11-2022 Subsequent hospital visit by physician Nadia Dumont MD Work Phone: Ambulatory Surgery Comment on above: Encounter for screen ing colonoscopy [Z12.11] Start: 07-08-2022 Telephone encounter Taty negrete MD Work Phone: [facility] [place] Comment on above: Orders Start: 2022 End: 2022 Postop follow up visit related to original px ALBERTO Lim DPM Work Phone: [facility] Comment on above: Closed displaced fra cture of fifth metatarsal bone of left foot, initial encounter (Primary Dx) Start: 07-02-2022 Telephone encounter Imer Xie Ramón garciadomonique DO Work Phone: [facility] [place] Comment on above: Results Start: 06-26-2022 Preprocedural examination done ALBERTO Lim DPM Work Phone: [facility] Start: 06-26-2022 Encounter for other preprocedural examination [facility] Start: 06-26-2022 End: 06-27-2022 [facility] Start: 06-26-2022 End: 06-30-2022 ambulatory [facility] Start: 06-26-2022 End: 06-30-2022 Encounter for other preprocedural examination [facility] Start: 06-24-2022 End: 06-24-2022 Office outpatient visit 25 minutes ALBERTO Lim DPM Work Phone: [facility] Comment on above: Closed displaced fra cture of fifth metatarsal bone of left foot, initial encounter (Primary Dx); Left foot pain; Plantar fascial fibromatosis of both feet Start: 06-20-2022 End: 06-20-2022 Office outpatient visit 25 minutes Bill Kulkarni DPM Work Phone: [facility] Comment on above: Closed displaced fra cture of fifth metatarsal bone of left foot, initial encounter (Primary Dx); Left foot pain; Type 2 diabetes mellitus with diabetic neuropathy, with long-term current use of insulin (HCC); Plantar fascial fibromatosis of both feet Start: 06-18-2022 End: 06-18-2022 Office outpatient visit 15 minutes Bill Kulkarni DPM Work Phone: [facility] Comment on above: Plantar fasciitis, l eft (Primary Dx); Plantar fascial fibromatosis of right foot Start: 06-17-2022 Telephone encounter Nina gibson PA-C Work Phone: General Surgery Comment on above: 07/11 [facility] Start: 06-17-2022 End: 06-17-2022 Patient encounter procedure Nina De La Torre PA-C Work Phone: General Surgery Comment on above: History of colonic p olyps (Primary Dx); Screening for colon cancer Start: 06-02-2022 End: 06-02-2022 Patient encounter procedure Taty Julian MD Work Phone: [facility] Comment on above: Type 2 diabetes nohemy itus without complication, without long- term current use of insulin (HCC) (Primary Dx); Globus sensation; Screening for colon cancer; Hypothyroidism, unspecified type; Gout, unspecified cause, unspecified chronicity, unspecified site; Medication monitoring encounter; Mucous cyst of digit of left hand Start: 03-19-2022 End: 03-19-2022 Office outpatient visit 15 minutes Bill Shad DPM Work Phone: [facility] Comment on above: Acute gout due to re nal impairment involving right foot (Primary Dx) Start: 02-18-2022 End: 02-18-2022 Office outpatient visit 15 minutes Bill Shad DPM Work Phone: [facility] Comment on above: Ankle pain (Primary Dx); Pain; 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 Start: 02-14-2022 Refill Bill Dillo n DPM Work Phone: [facility] Start: 02-13-2022 Refill Bill Dillo n DPM Work Phone: [facility] Comment on above: Gout of right foot d ue to renal impairment, unspecified chronicity Start: 12-18-2021 End: 12-18-2021 Office outpatient visit 15 minutes Bill Shad DPM Work Phone: [facility] Comment on above: Plantar fasciitis (P rimary Dx) Start: 12-13-2021 Chart Update Taty Lagunas ock Work Phone: [address] Work Phone: Start: 12-06-2021 AUDIT Taty Lagunas ock Work Phone: [address] Work Phone: Start: 10-09-2021 End: 10-09-2021 Office outpatient visit 25 minutes Bill Shad DPM Work Phone: [facility] Comment on above: Plantar fasciitis (P rimary Dx); Gout of right foot due to renal impairment, unspecified chronicity Start: 09-20-2021 End: 09-20-2021 Office outpatient visit 15 minutes Bill Shad DPM Work Phone: [facility] Comment on above: Plantar fasciitis (P rimary Dx); Right foot pain Start: 08-23-2021 End: 08-23-2021 Office outpatient visit 15 minutes Bill Shad DPM Work Phone: [facility] Comment on above: Plantar fasciitis (P rimary Dx); Right foot pain; Diabetic polyneuropathy associated with type 2 diabetes mellitus (HCC); Gout of right foot due to renal impairment, unspecified chronicity Plantar fasciitis (P rimary Dx); Right foot pain; Diabetic polyneuropathy associated with type 2 diabetes mellitus (HCC); Gout of right foot due to renal impairment, unspecified chronicity; 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 Start: 05-24-2021 End: 05-24-2021 Office outpatient visit 10 minutes Bill Marinon DPM Work Phone: [facility] Comment on above: Plantar fasciitis (P rimary Dx) Start: 04-14-2021 End: 04-14-2021 Chart abstracting Bill Shad DPM Work Phone: [facility] Comment on above: Back problem; Eye problem; Right foot pain; Plantar fasciitis, left; Swelling; Thyroid condition Start: 11-26-2020 End: 11-26-2020 Orders Only Katie Montana Work Phone: [facility] Start: 10-30-2020 End: 10-30-2020 Subsequent hospital visit by physician [facility] [place] Work Phone: Radiology Comment on above: Cough [R05] Start: 09-07-2020 End: 09-07-2020 Subsequent hospital visit by physician Esteban Thapa Work Phone: [facility] Comment on above: Cervicalgia Start: 10-20-2018 End: 10-21-2018 Patient encounter procedure Nodr No Doctor Assigned Facility:[facility] Start: 10-06-2018 End: 10-07-2018 Patient encounter procedure Regan Noland Facility:[facility] Start: 09-22-2018 End: 09-23-2018 Patient encounter procedure Regan Hunter Joshuaalisha Facility:[facility] Start: 09-22-2018 End: 09-23-2018 Patient encounter procedure Regan Hunter Joshuaalisha Facility:[facility] Start: 07-28-2018 [facility] Start: 07-28-2018 End: 07-28-2018 Patient encounter Bill Kulkarni Work Phone: [facility] Start: 07-27-2018 End: 07-28-2018 Patient encounter ESTEBAN THAPA Facility:[facility] Taty muhammad Work Phone: [employer] Work Phone: Comment on above: AGE 13; Patient encounter procedure Taty Julian Work Phone: [facility] Work Phone: Procedures Date Procedure Procedure Detail Performing Clinician Start: 07-30-[address] Taty Julian MD Work Phone: Start: 07-30-[address] Taty Julian MD Work Phone: Start: 07-30-2025 Microbial culture, body fluid Dr. Taty Julian MD Work Phone: Start: 07-30-[address] Taty Julian MD Work Phone: Start: 07-30-2025 Radiologic exam knee complete 4/more views Dr. Taty Julian MD Work Phone: Start: 07-19-2025 H/O: surgery History of removal of retained hardware Bill Kulkarni DPM Work Phone: Start: 06-28-2025 Electromyography Collin Carlson MD Work Phone: Start: 06-20-2025 Mammography Collin Carlson MD Work Phone: Start: 05-03-2025 Ul[address]ound elastography of liver Dr[address] Ivonne Julian MD Work Phone: Start: 04-18-[address] Taty Julian MD Work Phone: Comment on above: Performed at: [address] [id number] Director: Lucho Bonds PhD, Phone: [phone] Start: 04-18-2025 Total iron binding capacity measurement Dr. Taty Julian MD Work Phone: Start: 04-14-2025 Us pelvic nonobstetric real-time image complete Regan Noland MD Work Phone: Start: 03-02-2025 Thyrotropin [Units/volume] in Serum or Plasma Esteban Thapa MD Work Phone: Start: 02-27-[address] Taty Julian MD Work Phone: Start: 12-30-2024 Measurement of occult blood in stool specimen using immunoassay Dr. Taty Julian MD Work Phone: Start: 11-09-2024 Plain chest X-ray Dr. Taty Julian MD Work Phone: Start: 10-14-2024 Ultrasound elastography of liver Dr. Ivonne Julian MD Work Phone: Start: 10-14-2024 US scan of thyroid Dr. Taty Julian MD Work Phone: Start: 07-13-2024 Us breast uni real time with image limited Isrrael Bruner NAVID Work Phone: Start: 06-17-2024 Mammography Esteban Thapa MD Work Phone: Start: 06-07-2024 Adult depression screening assessment Taty Julian MD Work Phone: Start: 06-02-2024 Microalbumin [Mass/volume] in Urine by Test strip Bill Kulkarni Jr., DPM Work Phone: Start: 06-02-2024 Thyrotropin [Units/volume] in Serum or Plasma Esteban Thapa MD Work Phone: Start: 02-17-2024 Radionuclide gastric emptying study Dr. Taty Julian Work Phone: Start: 12-16-2023 Computed tomography of abdomen and pelvis with contrast Dr. Taty Julian Work Phone: Start: 12-11-2023 Urnls dip stick/tablet rgnt auto w/o microscopy Taty Julian MD Work Phone: Start: 11-30-2023 Thyrotropin [Units/volume] in Serum or Plasma Esteban Thapa MD Work Phone: Start: 08-10-[address] Taty Julian Work Phone: Start: 04-15-2023 Mammography Bill Kulkarni Jr., DPM Work Phone: Start: 04-08-[address] Taty Julian Work Phone: Start: 04-02-[address] Taty Julian Work Phone: Start: 01-21-2023 MRI of abdomen with contrast Dr. Taty Julian Work Phone: Start: 01-19-[address] Taty Julian Work Phone: Start: 01-18-2023 Computed tomography of abdomen and pelvis with intravenous contrast Start: 11-27-2022 Thyrotropin [Units/volume] in Serum or Plasma Lucero Lemons Start: 07-11-2022 Colonoscopy flx dx w/collj spec when pfrmd Nina De La Torre PA-C Work Phone: Start: 07-11-2022 Colonoscopy Nadia Dumont MD Work Phone: Start: 06-20-2022 Radex foot complete minimum 3 views Bill Kulkarni DPM Work Phone: Start: 05-28-2022 Microalbumin [Mass/volume] in Urine by Test strip Bill Kulkarni Jr., DPM Work Phone: Start: 02-18-2022 Radex ankle complete minimum 3 views Bill Kulkarni DPM Work Phone: Start: 12-13-2021 Mammography Taty Julian MD Work Phone: Start: 11-26-2021 Adult depression screening assessment Taty Julian MD Work Phone: Start: 08-23-2021 NURSING COMMUNICATION - DO NOT USE IN ORDER SETS Bill Kulkarni DPM Work Phone: Start: 10-30-2020 Radiologic exam chest 2 views Taty negrete MD Work Phone: Start: 09-07-2020 Radex spine cervical 6 or more views Esteban Thapa Work Phone: Start: 07-28-2018 End: 07-28-2018 Urate [Mass/volume] in Serum or Plasma Bill Kulkarni Work Phone: Start: 06-08-2017 Colonoscopy Taty Julian MD Work Phone: section Taty brambila Work Phone: H/O: surgery History of removal of retained hardware Bill Kulkarni DPM Work Phone: Tonsillectomy and adenoidectomy Taty Julian Work Phone: Plan of Treatment Date Care Activity Detail Author Start: 07-11-2032 Screening for malignant neoplasm of colon [facility] Start: 2030 Respiratory Syncytial Virus Immunization: Risk, 60-74 Risk, or 75+ (1 - 1-dose 75+ series) Respiratory Syncytial Virus Immunization: Risk, 60-74 Risk, or 75+ (1 - 1-dose 75+ series) [facility] Start: 12-01-2028 DTaP/Tdap/Td vaccine (3 - Td) DTaP/Tdap/Td vaccine (3 - Td) [place] Start: 12-01-2028 DTaP/Tdap/Td Vaccines (3 - Td or Tdap) DTaP/Tdap/Td Vaccines (3 - Td or Tdap) [facility] Start: 12-01-2028 Tetanus vaccination Tetanus: Every 10yrs [facility] Start: 12-01-2028 Urine microalbumin profile [facility] Start: 03-02-2028 Diabetes mellitus screening Diabetes Screening [facility] Start: 07-11-2027 Colonoscopy COLONOSCOPY [facility] Start: 07-11-2027 COLORECTAL CANCER SCREENING COLORECTAL CANCER SCREENING [facility] Start: 07-11-2027 Screening for malignant neoplasm of colon [facility] Start: 06-08-2027 Screening for malignant neoplasm of colon [facility] Start: 06-20-2026 Screening for malignant neoplasm of breast Mammogram [facility] Start: 03-15-2026 End: 03-15-2026 Patient encounter procedure 03/15/2026 9:00 AM EDT Office Visit [facility] [address] [place] [phone] Esteban Thapa MD [address] [place] [address] [facility] Start: 03-10-2026 Annual PCP Team Chronic Disease Visit Annual PCP Team Chronic Disease Visit [facility] Start: 03-02-2026 Diabetes: Urine Albumin-Creatinine Ratio for Kidney Health Diabetes: Urine Albumin-Creatinine Ratio for Kidney Health [facility] Start: 03-02-2026 Glaucoma screening Dilated Retinal Exam [facility] Start: 03-02-2026 Hemoglobin A1c measurement Diabetes: Hemoglobin A1C [facility] Start: 03-02-2026 Hepatitis B screening Urine Albumin:Creatinine Ratio [facility] Start: 03-02-2026 Hepatitis B surface antibody level LDL Cholesterol [facility] Start: 03-02-2026 Thyroid stimulating hormone measurement TSH Level [email or web address] [facility] Start: 12-09-2025 Annual PCP Team Chronic Disease Visit Annual PCP Team Chronic Disease Visit [facility] Start: 12-09-2025 Covid-19 Vaccine ( season) Covid-19 Vaccine () [facility] Comment on above: Postponed from 06/19/2024 (Declined at t his time) Start: 11-29-2025 Hepatitis B surface antibody level LDL Cholesterol [facility] Start: 09-13-2025 End: 09-13-2025 Patient encounter procedure 09/13/2025 9:00 AM EST Office Visit [facility] [address] [place] [address] Roby Castellon MD [address] [place] [address] transfer/6 month follow up [facility] Comment on above: transfer/6 month follow up Start: 09-11-2025 End: 09-11-2025 Admission to same day surgery center 09/11/2025 8:55 AM EST - 09/11/2025 10:15 AM EST Surgery [address] [phone] Bill Kulkarni Jr., DPM [address] [place] [phone] HARDWARE REMOVAL FOOT AND ANKLE, - LEFT, - 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, 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 [facility] Comment on above: HARDWARE REMOVAL FOOT AND ANKLE, - LEFT, - 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, 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 Start: 09-11-2025 End: 09-11-2025 Removal implant deep [employer]ARD[employer] History of removal of retained hardware 09/11/2025 8:55 AM EST [facility] Start: 09-11-2025 Subsequent hospital visit by physician 09/11/2025 8:55 AM EST Hospital Encounter [address] [place] [address] Bill Kulkarni Jr., DPM [address] [place] [address] [facility] Start: 09-08-2025 End: 09-08-2025 Patient encounter procedure 09/08/2025 9:30 AM EST Office Visit [facility] [address] [place] [phone] Bill Kulkarni Jr., DPM [address] [place] [address] [facility]ician [facility] Start: 09-02-2025 Hemoglobin A1c measurement [facility] Start: 09-01-2025 Glaucoma screening [facility] Start: 08-31-2025 End: 08-31-2025 Patient encounter procedure 08/31/2025 10:00 AM EST Office Visit [facility] Preadmission Testing [address] [place] [phone] Discharge Disposition: Home [facility] Preadmission Testing Start: 08-28-2025 ambulatory Ambulatory Facility:[facility] Start: 07-30-2025 [facility] Start: 07-30-2025 Procedure on extremity DRAIN/INJ JOINT/BURSA W/O US [facility] Start: 07-30-2025 [facility] Start: 07-12-2025 End: 07-12-2025 Patient encounter procedure [facility] Start: 06-20-2025 End: 06-20-2025 Patient encounter procedure 06/20/2025 12:50 PM EDT Appointment Mammogram [address] [place] [address] Encounter for gynecological examination (general) (routine) without abnormal findings [Z01.419]; Encounter for screening mammogram for breast cancer [Z12.31] Mammogram Comment on above: Encounter for gynecological examination (general) (routine) without abnormal findings [Z01.419]; Encounter for screening mammogram for breast cancer [Z12.31] Start: 06-19-2025 COVID-19 Vaccine ( season) COVID-19 Vaccine ( season) [facility] Start: 06-19-2025 Influenza vaccination [facility] Start: 06-17-2025 Screening for malignant neoplasm of breast [facility] Start: 06-07-2025 Annual PCP Team Chronic Disease Visit Annual PCP Team Chronic Disease Visit [facility] Start: 06-07-2025 Anxiety Screening Anxiety Screening [facility] Start: 06-07-2025 Depression Screening Depression Screening [facility] Start: 06-07-2025 End: 06-07-2025 Patient encounter procedure 06/07/2025 8:00 AM EDT Office Visit [facility] [address] [place] [address] iBll Kulkarni Jr., DPM [address] [place] [address] [facility] Start: 06-02-2025 Diabetes: Urine Albumin-Creatinine Ratio for Kidney Health Diabetes: Urine Albumin-Creatinine Ratio for Kidney Health [facility] Start: 06-02-2025 Hemoglobin A1c measurement Diabetes: Hemoglobin A1C [facility] Start: 06-02-2025 Hepatitis B screening Urine Albumin:Creatinine Ratio [facility] Start: 06-02-2025 Hepatitis B surface antibody level LDL Cholesterol [facility] Start: 06-02-2025 Thyroid stimulating hormone measurement TSH Level [facility] Start: 06-02-2025 Urine screening for protein Urine Microalbumin [facility] Start: 05-29-2025 Hemoglobin A1c measurement HbA1C [facility] Start: 04-17-2025 Influenza vaccination Influenza Vaccine (#1) [place] [facility] Comment on above: Postponed from 06/19/2024 (Declined at t his time) Start: 04-14-2025 End: 04-14-2025 ambulatory 04/14/2025 9:00 AM EDT Procedure OB/Gynecology [address] [place] [address] Remote, Software [employer] [address] [place] [address] Adnexal fullness [N94.9] OB/Gynecology Comment on above: Adnexal fullness [N94.9] Start: 04-10-2025 End: 04-10-2026 US Pelvis PELVIC US [facility] Anc Imaging Routine Adnexal fullness Expected: 04/10/2025, Expires: 04/10/2026 [facility] Comment on above: Expected: 04/10/2025, Expires: Start: 04-10-2025 End: 04-10-2025 Patient encounter procedure 04/10/2025 8:20 AM EDT Office Visit OB/Gynecology [address] [place] [address] Regan Noland MD [address] [facility] [place] [address] Dx: Screening for cervical cancer [Z12.4] OB/Gynecology Comment on above: Dx: Screening for cervical cancer [Z12.4 ] Start: 03-15-2025 End: 03-15-2025 Patient encounter procedure [facility] Start: 03-10-2025 End: 03-10-2025 Patient encounter procedure 03/10/2025 8:40 AM EDT Office Visit [facility] [address] [place] [address] aTty Julian MD [address] [place] [address] 3 mo f/u [facility] Comment on above: 3 mo f/u Start: 03-08-2025 End: 06-07-2025 CBC W Auto Differential panel - Blood COMPLETE BLOOD COUNT AND DIFFERENTIAL Lab Routine Anemia, unspecified type Expected: 03/08/2025 (Approximate), Expires: 06/07/2025 [facility] Comment on above: Expected: 03/08/2025 (Approximate), Expi res: 06/07/2025 Start: 03-08-2025 End: 06-07-2025 Comprehensive metabolic 2000 panel - Serum or Plasma COMPREHENSIVE METABOLIC PANEL Lab Routine Type 2 diabetes mellitus without complication, without long-term current use of insulin (HCC) Hyperlipidemia, mixed Elevated LFTs Expected: 03/08/2025 (Approximate), Expires: 06/07/2025 [facility] Work Phone: Comment on above: Expected: 03/08/2025 (Approximate), Expi res: 06/07/2025 Start: 03-08-2025 End: 06-07-2025 Hemoglobin A1c in Blood HEMOGLOBIN A1C Lab Routine Type 2 diabetes mellitus without complication, without long-term current use of insulin (HCC) Expected: 03/08/2025 (Approximate), Expires: 06/07/2025 [facility] Comment on above: Expected: 03/08/2025 (Approximate), Expi res: 06/07/2025 Start: 03-08-2025 End: 06-07-2025 Lipid 1996 panel - Serum or Plasma LIPID PANEL BASIC Lab Routine Type 2 diabetes mellitus without complication, without long-term current use of insulin (HCC) Hyperlipidemia, mixed Expected: 03/08/2025 (Approximate), Expires: 06/07/2025 [facility] Comment on above: Expected: 03/08/2025 (Approximate), Expi res: 06/07/2025 Start: 03-08-2025 End: 06-07-2025 Microalbumin/Creatinine [Mass Ratio] in Urine ALBUMIN/CREATININE RATIO, URINE Lab Routine Type 2 diabetes mellitus without complication, without long-term current use of insulin (HCC) Expected: 03/08/2025 (Approximate), Expires: 06/07/2025 [facility] Comment on above: Expected: 03/08/2025 (Approximate), Expi res: 06/07/2025 Start: 03-08-2025 End: 06-07-2025 Thyrotropin [Units/volume] in Serum or Plasma THYROID STIMULATING HORMONE Lab Routine Hypothyroidism, unspecified type Expected: 03/08/2025 (Approximate), Expires: 06/07/2025 [facility] Comment on above: Expected: 03/08/2025 (Approximate), Expi res: 06/07/2025 Start: 03-08-2025 End: 06-07-2025 Urate [Mass/volume] in Serum or Plasma URIC ACID Lab Routine Gout, unspecified cause, unspecified chronicity, unspecified site Expected: 03/08/2025 (Approximate), Expires: 06/07/2025 [facility] Comment on above: Expected: 03/08/2025 (Approximate), Expi res: 06/07/2025 Start: 02-27-2025 Patient discharge [facility] Start: 02-22-2025 Glaucoma screening Dilated Retinal Exam [facility] Start: 12-11-2024 Annual PCP Team Chronic Disease Visit Annual PCP Team Chronic Disease Visit [facility] Start: 12-09-2024 End: 12-09-2024 Patient encounter procedure 12/09/2024 8:40 AM EST Office Visit [facility] [place] [address] [place], [place] [phone] Taty Julian MD [address] [place], [place] [id number] 6 mo f/u [facility] Comment on above: 6 mo f/u Start: 12-08-2024 End: 03-09-2025 CBC W Auto Differential panel - Blood COMPLETE BLOOD COUNT AND DIFFERENTIAL Lab Routine Anemia, unspecified type Expected: 12/08/2024 (Approximate), Expires: 03/09/2025 [facility] Comment on above: Expected: 12/08/2024 (Approximate), Expi res: 03/09/2025 Start: 12-08-2024 End: 03-09-2025 Comprehensive metabolic 2000 panel - Serum or Plasma COMPREHENSIVE METABOLIC PANEL Lab Routine Type 2 diabetes mellitus without complication, without long-term current use of insulin (HCC) Hyperlipidemia, mixed Elevated LFTs Expected: 12/08/2024 (Approximate), Expires: 03/09/2025 [facility] Work Phone: Comment on above: Expected: 12/08/2024 (Approximate), Expi res: 03/09/2025 Start: 12-08-2024 End: 03-09-2025 Hemoglobin A1c in Blood HEMOGLOBIN A1C Lab Routine Type 2 diabetes mellitus without complication, without long-term current use of insulin (HCC) Expected: 12/08/2024 (Approximate), Expires: 03/09/2025 [facility] Comment on above: Expected: 12/08/2024 (Approximate), Expi res: 03/09/2025 Start: 12-08-2024 End: 03-09-2025 Lipid 1996 panel - Serum or Plasma LIPID PANEL BASIC Lab Routine Type 2 diabetes mellitus without complication, without long-term current use of insulin (HCC) Hyperlipidemia, mixed Expected: 12/08/2024 (Approximate), Expires: 03/09/2025 [facility] Comment on above: Expected: 12/08/2024 (Approximate), Expi res: 03/09/2025 Start: 12-08-2024 End: 03-09-2025 Thyrotropin [Units/volume] in Serum or Plasma THYROID STIMULATING HORMONE Lab Routine Hypothyroidism, unspecified type Expected: 12/08/2024 (Approximate), Expires: 03/09/2025 [facility] Comment on above: Expected: 12/08/2024 (Approximate), Expi res: 03/09/2025 Start: 12-08-2024 End: 03-09-2025 Urate [Mass/volume] in Serum or Plasma URIC ACID Lab Routine Gout, unspecified cause, unspecified chronicity, unspecified site Expected: 12/08/2024 (Approximate), Expires: 03/09/2025 [facility] Comment on above: Expected: 12/08/2024 (Approximate), Expi res: 03/09/2025 Start: 12-03-2024 Hemoglobin A1c measurement [facility] Start: 11-30-2024 Hemoglobin A1c measurement Diabetes: Hemoglobin A1C [facility] Start: 11-30-2024 Hepatitis B surface antibody level LDL Cholesterol [facility] Start: 11-30-2024 Thyroid stimulating hormone measurement TSH Level [facility] Start: 11-09-2024 Egd band ligation esophgeal/gastric varices EGD VARICES LIGATION [facility] Start: 11-09-2024 Egd transoral biopsy single/multiple EGD BIOPSY SINGLE/MULTIPLE [facility] Start: 11-09-2024 Patient discharge [facility] Start: 10-19-2024 Advance Directive Discussion Advance Directive Discussion [facility] Start: 09-28-2024 Patient referral [facility] Work Phone: Start: 08-27-2024 Glaucoma screening Dilated Retinal Exam [facility] Start: 07-19-2024 End: 07-19-2024 Patient encounter procedure Mammogram Comment on above: call back Left breast Start: 06-19-2024 COVID-19 Vaccine ( season) COVID-19 Vaccine () [facility] Start: 06-19-2024 Covid-19 Vaccine ( season) Covid-19 Vaccine () [facility] Start: 06-19-2024 Covid-19 Vaccine () Covid-19 Vaccine () [facility] Start: 06-19-2024 Influenza vaccination Influenza Vaccine (#1) [facility] Start: 06-11-2024 ANNUAL PCP TEAM CHRONIC DISEASE VISIT ANNUAL PCP TEAM CHRONIC DISEASE VISIT [facility] Start: 06-10-2024 End: 09-09-2024 ALBUMIN/CREAT RATIO RND UR ALBUMIN/CREAT RATIO RND UR Lab Routine Type 2 diabetes mellitus without complication, without long-term current use of insulin (HCC) Expected: 06/10/2024 (Approximate), Expires: 09/09/2024 [facility] Work Phone: Comment on above: Expected: 06/10/2024 (Approximate), Expi res: 09/09/2024 Start: 06-10-2024 End: 09-09-2024 CBC W Auto Differential panel - Blood CBC + DIFF Lab Routine Disorder involving thrombocytopenia (HCC) Expected: 06/10/2024 (Approximate), Expires: 09/09/2024 [facility] Work Phone: Comment on above: Expected: 06/10/2024 (Approximate), Expi res: 09/09/2024 Start: 06-10-2024 End: 09-09-2024 Comprehensive metabolic 2000 panel - Serum or Plasma COMP METABOLIC PANEL Lab Routine Type 2 diabetes mellitus without complication, without long-term current use of insulin (HCC) Hyperlipidemia, mixed Expected: 06/10/2024 (Approximate), Expires: 09/09/2024 [facility] Work Phone: Comment on above: Expected: 06/10/2024 (Approximate), Expi res: 09/09/2024 Start: 06-10-2024 End: 09-09-2024 Hemoglobin A1c in Blood HGB A1C Lab Routine Type 2 diabetes mellitus without complication, without long-term current use of insulin (HCC) Expected: 06/10/2024 (Approximate), Expires: 09/09/2024 [facility] Work Phone: Comment on above: Expected: 06/10/2024 (Approximate), Expi res: 09/09/2024 Start: 06-10-2024 End: 09-09-2024 Lipid 1996 panel - Serum or Plasma LIPID PANEL BASIC Lab Routine Hyperlipidemia, mixed Expected: 06/10/2024 (Approximate), Expires: 09/09/2024 [facility] Work Phone: Comment on above: Expected: 06/10/2024 (Approximate), Expi res: 09/09/2024 Start: 06-10-2024 End: 09-09-2024 Thyrotropin [Units/volume] in Serum or Plasma TSH BLD Lab Routine Hypothyroidism, unspecified type Expected: 06/10/2024 (Approximate), Expires: 09/09/2024 [facility] Work Phone: Comment on above: Expected: 06/10/2024 (Approximate), Expi res: 09/09/2024 Start: 06-10-2024 End: 09-09-2024 Urate [Mass/volume] in Serum or Plasma URIC ACID BLOOD Lab Routine Gout, unspecified cause, unspecified chronicity, unspecified site Expected: 06/10/2024 (Approximate), Expires: 09/09/2024 [facility] Work Phone: Comment on above: Expected: 06/10/2024 (Approximate), Expi res: 09/09/2024 Start: 06-08-2024 End: 06-08-2024 Patient encounter procedure 06/08/2024 8:15 AM EDT Office Visit [facility] [address] [facility] [place] [address] Bill Kulkarni Jr., DPM [address] [place] [address] [facility] Start: 06-07-2024 End: 06-07-2024 Patient encounter procedure 06/07/2024 9:20 AM EDT Office Visit [facility] [address] [place] [address] Taty Julian MD [address] [place] [address] 6 month follow up [facility] Comment on above: 6 month follow up Start: 06-02-2024 Hepatitis B surface antibody level LDL CHOLESTEROL [facility] Start: 05-30-2024 Hemoglobin A1c measurement HbA1C [facility] Start: 04-15-2024 Mammography MAMMOGRAM [facility] Start: 04-15-2024 Screening for malignant neoplasm of breast [facility] Start: 03-30-2024 End: 03-30-2024 Patient encounter procedure 03/30/2024 9:00 AM EDT Office Visit [facility] [address] [place] [address] ALBERTO Lim, DPM [address] [place] [address] [facility] Start: 03-19-2024 eGFR Diabetes eGFR Diabetes [facility] Start: 03-15-2024 End: 03-15-2024 Patient encounter procedure 03/15/2024 Office Visit Neurology Esteban Thapa MD [address] [place] [address] [facility] Start: 03-12-2024 ANNUAL PCP TEAM CHRONIC DISEASE VISIT ANNUAL PCP TEAM CHRONIC DISEASE VISIT [facility] Start: 03-06-2024 Covid-19 Vaccine () Covid-19 Vaccine () [facility] Start: 03-03-2024 Hepatitis B surface antibody level LDL CHOLESTEROL [facility] Start: 02-28-2024 Hepatitis C antibody, confirmatory test DILATED RETINAL EXAM [facility] Start: 01-27-2024 ANNUAL PCP TEAM CHRONIC DISEASE VISIT ANNUAL PCP TEAM CHRONIC DISEASE VISIT [facility] Start: 12-12-2023 End: 02-11-2024 CBC W Auto Differential panel - Blood CBC + DIFF Lab Routine Anemia, unspecified type Disorder involving thrombocytopenia (HCC) Expected: 12/12/2023 (Approximate), Expires: 02/11/2024 [facility] Work Phone: Comment on above: Expected: 12/12/2023 (Approximate), Expi res: 02/11/2024 Start: 12-12-2023 End: 02-11-2024 Comprehensive metabolic 2000 panel - Serum or Plasma COMP METABOLIC PANEL Lab Routine Type 2 diabetes mellitus without complication, without long-term current use of insulin (HCC) Hyperlipidemia, mixed Expected: 12/12/2023 (Approximate), Expires: 02/11/2024 [facility] Work Phone: Comment on above: Expected: 12/12/2023 (Approximate), Expi res: 02/11/2024 Start: 12-12-2023 End: 02-11-2024 Hemoglobin A1c in Blood HGB A1C Lab Routine Type 2 diabetes mellitus without complication, without long-term current use of insulin (HCC) Expected: 12/12/2023 (Approximate), Expires: 02/11/2024 [facility] Work Phone: Comment on above: Expected: 12/12/2023 (Approximate), Expi res: 02/11/2024 Start: 12-12-2023 End: 02-11-2024 Lipid 1996 panel - Serum or Plasma LIPID PANEL BASIC Lab Routine Hyperlipidemia, mixed Expected: 12/12/2023 (Approximate), Expires: 02/11/2024 [facility] Work Phone: Comment on above: Expected: 12/12/2023 (Approximate), Expi res: 02/11/2024 Start: 12-12-2023 End: 02-11-2024 Thyrotropin [Units/volume] in Serum or Plasma TSH BLD Lab Routine Hypothyroidism, unspecified type Expected: 12/12/2023 (Approximate), Expires: 02/11/2024 [facility] Work Phone: Comment on above: Expected: 12/12/2023 (Approximate), Expi res: 02/11/2024 Start: 12-12-2023 End: 02-11-2024 Urate [Mass/volume] in Serum or Plasma URIC ACID BLOOD Lab Routine Gout, unspecified cause, unspecified chronicity, unspecified site Expected: 12/12/2023 (Approximate), Expires: 02/11/2024 [facility] Work Phone: Comment on above: Expected: 12/12/2023 (Approximate), Expi res: 02/11/2024 Start: 12-08-2023 Hepatitis a & b vaccine hepa-hepb adult im HEP A-HEP B VACCINE ([place]) Immunization/Injection Routine Need for vaccination Expected: 12/08/2023 (Approximate) [facility] Work Phone: Comment on above: Expected: 12/08/2023 (Approximate) Start: 12-04-2023 ANNUAL PCP TEAM CHRONIC DISEASE VISIT ANNUAL PCP TEAM CHRONIC DISEASE VISIT [facility] Start: 12-03-2023 Hemoglobin A1c measurement A1C [facility] Start: 12-03-2023 Hemoglobin A1c/Hemoglobin.total in Blood HBA1C [facility] Start: 11-27-2023 Hepatitis B surface antibody level LDL CHOLESTEROL [facility] Start: 11-27-2023 Thyroid stimulating hormone measurement TSH Level [facility] Start: 10-29-2023 End: 10-29-2023 Patient encounter procedure 10/29/2023 8:15 AM EST Office Visit [facility] [address] [place] [address] ALBERTO Lim, DPM [address] [place] [address] [facility] Start: 10-19-2023 Behavioral Health Screening Behavioral Health Screening [facility] Start: 10-01-2023 End: 10-01-2023 Patient encounter procedure 10/01/2023 7:45 AM EST Office Visit [facility] [address] [place] [address] ALBERTO Lim, DPM [facility] [place] [address] [facility] Start: 09-10-2023 3 comp foot exam completed DIABETIC FOOT EXAM [facility] Start: 09-10-2023 Diabetic foot examination Diabetic Foot Exam [facility] Start: 09-03-2023 Hemoglobin A1c/Hemoglobin.total in Blood HBA1C [facility] Start: 08-10-2023 Patient discharge [facility] Start: 07-12-2023 Hepatitis a & b vaccine hepa-hepb adult im HEP A-HEP B VACCINE (TWINRIX) Immunization/Injection Routine Need for vaccination Expected: 07/12/2023 (Approximate) [facility] Work Phone: Comment on above: Expected: 07/12/2023 (Approximate) Start: 07-09-2023 HEPATITIS A (2 of 3 - Hep A Twinrix risk 3-dose series) HEPATITIS A (2 of 3 - Hep A Twinrix risk 3-dose series) [facility] Start: 07-09-2023 HEPATITIS B (2 of 3 - Hep B Twinrix risk 3-dose series) HEPATITIS B (2 of 3 - Hep B Twinrix risk 3-dose series) [facility] Start: 06-19-2023 COVID-19 Vaccine ( season) COVID-19 Vaccine ( season) [facility] Start: 06-19-2023 Influenza vaccination [facility] Start: 06-03-2023 End: 06-03-2023 Patient encounter procedure 06/03/2023 8:15 AM EDT Office Visit [facility] Physician [facility] [address] [place] [phone] Bill Kulkarni Jr., DPM [address] [place] [address] [facility] Physician [facility] Start: 06-02-2023 ANNUAL PCP TEAM CHRONIC DISEASE VISIT ANNUAL PCP TEAM CHRONIC DISEASE VISIT [facility] Start: 05-28-2023 Hepatitis B screening URINE ALBUMIN:CREATININE RATIO [facility] Start: 05-28-2023 Urine screening for protein [facility] Start: 05-27-2023 Hemoglobin A1c measurement A1C [facility] Start: 05-27-2023 Hemoglobin A1c/Hemoglobin.total in Blood HBA1C [facility] Start: 04-08-2023 Egd band ligation esophgeal/gastric varices EGD VARICES LIGATION [facility] Start: 04-08-2023 Egd transoral biopsy single/multiple EGD BIOPSY SINGLE/MULTIPLE [facility] Start: 04-08-2023 Egd transoral control bleeding any method EGD CONTROL BLEEDING ANY [facility] Start: 04-08-2023 Patient discharge [facility] Start: 03-11-2023 End: 03-11-2023 Patient encounter procedure 03/11/2023 Office Visit Neurology Esteban Thapa MD [address] [place] [address] [facility] Start: 03-04-2023 COVID-19 VACCINE (5 - Moderna series) COVID-19 VACCINE (5 - Moderna series) [facility] Start: 03-04-2023 End: 03-04-2023 Patient encounter procedure 03/04/2023 8:00 AM EDT Office Visit [facility] [address] [place] [address] ALBERTO Lim, DPM [address] [place] [address] [facility] Start: 03-03-2023 End: 05-03-2023 CBC W Auto Differential panel - Blood CBC + DIFF Lab Routine Anemia, unspecified type Expected: 03/03/2023 (Approximate), Expires: 05/03/2023 [facility] Work Phone: Comment on above: Expected: 03/03/2023 (Approximate), Expi res: 05/03/2023 Start: 03-03-2023 End: 05-03-2023 Comprehensive metabolic 2000 panel - Serum or Plasma COMP METABOLIC PANEL Lab Routine Type 2 diabetes mellitus without complication, without long-term current use of insulin (HCC) Elevated LFTs Expected: 03/03/2023 (Approximate), Expires: 05/03/2023 [facility] Work Phone: Comment on above: Expected: 03/03/2023 (Approximate), Expi res: 05/03/2023 Start: 03-03-2023 End: 05-03-2023 Hemoglobin A1c in Blood HGB A1C Lab Routine Type 2 diabetes mellitus without complication, without long-term current use of insulin (HCC) Expected: 03/03/2023 (Approximate), Expires: 05/03/2023 [facility] Work Phone: Comment on above: Expected: 03/03/2023 (Approximate), Expi res: 05/03/2023 Start: 03-03-2023 End: 05-03-2023 Lipid 1996 panel - Serum or Plasma LIPID PANEL BASIC Lab Routine Hyperlipidemia, mixed Expected: 03/03/2023 (Approximate), Expires: 05/03/2023 [facility] Work Phone: Comment on above: Expected: 03/03/2023 (Approximate), Expi res: 05/03/2023 Start: 03-03-2023 Mammography MAMMOGRAM [facility] Comment on above: Postponed from 12/13/2022 (Declined at t his time) Start: 02-27-2023 End: 04-29-2023 CBC W Auto Differential panel - Blood CBC + DIFF Lab Routine Gastrointestinal hemorrhage with hematemesis Expected: 02/27/2023, Expires: 04/29/2023 [facility] Work Phone: Comment on above: Expected: 02/27/2023, Expires: 3 Start: 02-27-2023 End: 04-29-2023 Ferritin [Mass/volume] in Serum or Plasma FERRITIN BLD Lab Routine Gastrointestinal hemorrhage with hematemesis Expected: 02/27/2023, Expires: 04/29/2023 [facility] Work Phone: Comment on above: Expected: 02/27/2023, Expires: 3 Start: 02-27-2023 End: 04-29-2023 Iron and Iron binding capacity panel - Serum or Plasma IRON + TIBC Lab Routine Gastrointestinal hemorrhage with hematemesis Expected: 02/27/2023, Expires: 04/29/2023 [facility] Work Phone: Comment on above: Expected: 02/27/2023, Expires: Start: 02-27-2023 End: 02-27-2023 Patient encounter procedure 02/27/2023 1:45 PM EDT Office Visit [facility] [address] [place] [address] Bill Kulkarni Jr., DPM [address] [place] [id number] [facility] Start: 02-18-2023 Hepatitis B surface antibody level LDL CHOLESTEROL [facility] Start: 01-21-2023 Patient discharge [facility] Start: 01-21-2023 [facility] Start: 01-20-2023 Application of intermittent pneumatic compression device [facility] Start: 01-19-2023 Administration of blood product [facility] Start: 01-19-2023 Care regimes management [facility] Start: 01-19-2023 Notification of physician [facility] Start: 01-19-2023 [facility] Start: 01-18-2023 End: 01-19-2023 [facility] Start: 01-18-2023 Following clinical pathway protocol [facility] Start: 01-18-2023 Assessment of risk of venous thromboembolism [facility] Start: 01-18-2023 Insertion of catheter into peripheral vein [facility] Start: 01-18-2023 Measuring intake and output [facility] Start: 01-18-2023 Providing care according to standard [facility] Start: 01-18-2023 Provision of activity privileges [facility] Start: 01-18-2023 Referral to gastroenterology service [facility] Start: 01-18-2023 Verification routine [facility] Start: 01-18-2023 Admission procedure [facility] Start: 01-18-2023 Patient referral to dietitian [facility] Start: 12-13-2022 Mammography MAMMOGRAM [facility] Start: 12-03-2022 End: 02-02-2023 CBC panel - Blood by Automated count CBC Lab Routine Hypothyroidism, unspecified type Expected: 12/03/2022 (Approximate), Expires: 02/02/2023 [facility] Work Phone: Comment on above: Expected: 12/03/2022 (Approximate), Expi res: 02/02/2023 Start: 12-03-2022 End: 02-02-2023 Cobalamin (Vitamin B12) [Mass/volume] in Serum or Plasma VITAMIN B12 BLOOD Lab Routine Medication monitoring encounter Expected: 12/03/2022 (Approximate), Expires: 02/02/2023 [facility] Work Phone: Comment on above: Expected: 12/03/2022 (Approximate), Expi res: 02/02/2023 Start: 12-03-2022 End: 02-02-2023 Comprehensive metabolic 2000 panel - Serum or Plasma COMP METABOLIC PANEL Lab Routine Type 2 diabetes mellitus without complication, without long-term current use of insulin (HCC) Expected: 12/03/2022 (Approximate), Expires: 02/02/2023 [facility] Work Phone: Comment on above: Expected: 12/03/2022 (Approximate), Expi res: 02/02/2023 Start: 12-03-2022 End: 02-02-2023 Hemoglobin A1c in Blood HGB A1C Lab Routine Type 2 diabetes mellitus without complication, without long-term current use of insulin (HCC) Expected: 12/03/2022 (Approximate), Expires: 02/02/2023 [facility] Work Phone: Comment on above: Expected: 12/03/2022 (Approximate), Expi res: 02/02/2023 Start: 12-03-2022 End: 02-02-2023 Lipid 1996 panel - Serum or Plasma LIPID PANEL BASIC Lab Routine Type 2 diabetes mellitus without complication, without long-term current use of insulin (HCC) Expected: 12/03/2022 (Approximate), Expires: 02/02/2023 [facility] Work Phone: Comment on above: Expected: 12/03/2022 (Approximate), Expi res: 02/02/2023 Start: 12-03-2022 End: 02-02-2023 Thyrotropin [Units/volume] in Serum or Plasma TSH BLD Lab Routine Hypothyroidism, unspecified type Medication monitoring encounter Expected: 12/03/2022 (Approximate), Expires: 02/02/2023 [facility] Work Phone: Comment on above: Expected: 12/03/2022 (Approximate), Expi res: 02/02/2023 Start: 12-03-2022 End: 02-02-2023 Urate [Mass/volume] in Serum or Plasma URIC ACID BLOOD Lab Routine Gout, unspecified cause, unspecified chronicity, unspecified site Expected: 12/03/2022 (Approximate), Expires: 02/02/2023 [facility] Work Phone: Comment on above: Expected: 12/03/2022 (Approximate), Expi res: 02/02/2023 Start: 11-28-2022 Hemoglobin A1c measurement A1C [facility] Start: 11-28-2022 Hemoglobin A1c/Hemoglobin.total in Blood HBA1C [facility] Start: 11-28-2022 Screening for osteoporosis Bone Density Scan [facility] Start: 11-26-2022 Adult depression screening assessment DEPRESSION SCREENING [facility] Start: 10-19-2022 ADVANCE DIRECTIVE DISCUSSION ADVANCE DIRECTIVE DISCUSSION [facility] Start: 10-19-2022 DEPRESSION ASSESSMENT DEPRESSION ASSESSMENT [facility] Start: 09-10-2022 End: 09-10-2022 Patient encounter procedure 09/10/2022 Office Visit Podiatry ALBERTO Lim, DPM [address] [place] [address] [facility] Start: 08-19-2022 Hepatitis C antibody, confirmatory test DILATED RETINAL EXAM [facility] Start: 07-23-2022 End: 07-23-2022 Patient encounter procedure 07/23/2022 Office Visit Podiatry Bill Kulkarni Jr., DPMarek [address] [place] [id number] [facility] Start: 07-08-2022 End: 09-07-2022 CBC W Auto Differential panel - Blood [facility] Work Phone: Comment on above: Expected: 07/08/2022, Expires: Start: 2022 End: 2022 Follow-up encounter 2022 Follow-Up Podiatry ALBERTO Lim, DPMarek [address] [place] [address] [facility] Start: 06-27-2022 End: 06-27-2022 Admission to same day surgery center 06/27/2022 Surgery ALBERTO Lim, DPMarek [address] [place] [address] Open reduction internal fixation left fifth metatarsal, 0.62 K wires, Lenny fifth metatarsal hook plate. Lenny mini frag, power, big C,bilateral feet steroid injections under anesthesia [facility] Comment on above: Open reduction internal fixation left fi fth metatarsal, 0.62 K wires, Lenny fifth metatarsal hook plate. Lenny mini frag, power, big C,bilateral feet steroid injections under anesthesia Start: 06-27-2022 End: 06-27-2022 Anesthesia consultation 06/27/2022 Anesthesia Event Gerber Mcneal MD [address] [place] [address] [facility] Start: 06-27-2022 End: 06-27-2022 INJECTION FOOT INJECTION FOOT Left foot pain Closed displaced fracture of fifth metatarsal bone of left foot, initial encounter Plantar fascial fibromatosis of both feet 06/27/2022 10:55 AM EDT [facility] Start: 06-27-2022 End: 06-27-2022 OPEN REDUCTION INTERNAL FIXATION FOOT/TOE(S) OPEN REDUCTION INTERNAL FIXATION FOOT/TOE(S) Left foot pain Closed displaced fracture of fifth metatarsal bone of left foot, initial encounter Plantar fascial fibromatosis of both feet 06/27/2022 10:55 AM EDT [facility] Start: 06-27-2022 Subsequent hospital visit by physician 06/27/2022 Hospital Encounter ALBERTO Lim, DPM [address] [place] [address] [facility] Start: 06-26-2022 End: 06-26-2022 Patient encounter procedure 06/26/2022 Office Visit Pre-Admission Testing ALBERTO Lim, DPM [address] [place] [address] [facility] Preadmission Testing Start: 06-24-2022 End: 06-24-2022 Patient encounter procedure 06/24/2022 Office Visit Podiatry ALBERTO Lim, MINDY [address] [place] [address] [facility] Start: 06-19-2022 Influenza vaccination [facility] Start: 06-18-2022 End: 06-18-2022 Patient encounter procedure 06/18/2022 Office Visit Podiatry Bill Kulkarni Jr., MINDY [address] [place] [address] [facility] Start: 06-08-2022 Colonoscopy COLONOSCOPY [facility] Start: 06-08-2022 COLORECTAL CANCER SCREENING COLORECTAL CANCER SCREENING [facility] Start: 05-24-2022 3 comp foot exam completed DIABETIC FOOT EXAM [facility] Start: 05-21-2022 Hemoglobin A1c measurement A1C [facility] Start: 03-19-2022 End: 03-19-2022 Patient encounter procedure 03/19/2022 Office Visit Podiatry Bill Kulkarni Jr., DPM [address] [place] [address] [facility] Start: 02-01-2022 COVID-19 Vaccine (4 - Booster for Moderna series) COVID-19 Vaccine (4 - Booster for Moderna series) [facility] Start: 12-18-2021 End: 12-18-2021 Patient encounter procedure 12/18/2021 Office Visit Podiatry Bill Kulkarni Jr., MINDY [address] [place] [address] [facility] Physician [facility] Start: 11-28-2021 COVID-19 VACCINE (4 - Booster for Moderna series) COVID-19 VACCINE (4 - Booster for Moderna series) [facility] Start: 10-19-2021 DEPRESSION ASSESSMENT DEPRESSION ASSESSMENT [facility] Start: 10-04-2021 End: 10-04-2021 Patient encounter procedure 10/04/2021 Office Visit Podiatry Bill Kulkarni Jr., MINDY [address] [place] [address] [facility] Start: 09-27-2021 End: 09-20-2022 MR Foot Right Without Contrast MR Foot Right Without Contrast Imaging Routine Plantar fasciitis Right foot pain Expected: 09/27/2021, Expires: 09/20/2022 [facility] Work Phone: Comment on above: Expected: 09/27/2021, Expires: Start: 09-20-2021 End: 09-20-2021 Patient encounter procedure 09/20/2021 Office Visit Podiatry Bill Kulkarni Jr., MINDY [address] [place] [address] [facility] Start: 08-23-2021 End: 08-23-2021 Patient encounter procedure 08/23/2021 Office Visit Podiatry Bill Kulkarni Jr., DPM [address] [place] [address] [phone] [facility] Start: 08-08-2021 Pneumococcal vaccination Pneumococcal Vaccine Age 65+ (2 of 2 - PPSV23) [facility] Start: 07-26-2021 COVID-19 Vaccine (3 - Booster for Moderna series) COVID-19 Vaccine (3 - Booster for Moderna series) [facility] Start: 06-19-2021 Influenza vaccination Sequential Influenza Vaccine (#1) [facility] Start: 04-26-2021 End: 04-26-2021 Patient encounter procedure 04/26/2021 Office Visit Podiatry Bill Kulkarni Jr., DPM [address] [facility] [place] [address] [phone] [facility] Start: 10-17-2020 End: 10-17-2020 Office Visit 10/17/2020 Office Visit Neurology Esteban Thapa MD [address] [place] [address] [phone] [facility] [place] Start: 09-04-2020 Annual Wellness Visit (AWV) Annual Wellness Visit (AWV) [place], [place] Start: 2020 Fall risk assessment Falls Risk Assessment [facility] Start: 2020 Pneumococcal 65+ years Vaccine (2 of 2 - PPSV23) Pneumococcal 65+ years Vaccine (2 of 2 - PPSV23) [place], [place] Start: 2020 Pneumococcal Vaccine: Age 65+ (1 of 1 - PPSV23) Pneumococcal Vaccine: Age 65+ (1 of 1 - PPSV23) [facility] Start: 06-19-2020 Medicare Annual Wellness Visit Medicare Annual Wellness Visit [facility] Start: 2015 HEPATITIS B (1 of 3 - Risk 3-dose series) HEPATITIS B (1 of 3 - Risk 3-dose series) [facility] Start: 2015 Hepatitis B Vaccines (1 of 3 - Risk 3-dose series) Hepatitis B Vaccines (1 of 3 - Risk 3-dose series) [facility] Start: 2015 Respiratory Syncytial Virus Immunization: Risk, 60-74 Risk, or 75+ (1 - Risk 60-74 years 1-dose series) Respiratory Syncytial Virus Immunization: Risk, 60-74 Risk, or 75+ (1 - Risk 60-74 years 1-dose series) [facility] Start: 2015 RSV High Risk: (Elderly (60+) or Population) (1 - Risk 60-74 years 1-dose series) RSV High Risk: (Elderly (60+) or Population) (1 - Risk 60-74 years 1-dose series) [facility] Start: 2015 RSV Immunization aged 60 or older (1 - 1-dose 60+ series) RSV Immunization aged 60 or older (1 - 1-dose 60+ series) [facility] Start: 2015 RSV Immunization for Adults (1 - Risk 60-74 years 1-dose series) RSV Immunization for Adults (1 - Risk 60-74 years 1-dose series) [facility] Start: 2015 RSV Vaccine (1 - 1-dose 60+ series) RSV Vaccine (1 - 1-dose 60+ series) [facility] Start: 2015 RSV Vaccine (1 - Risk 60-74 years 1-dose series) RSV Vaccine (1 - Risk 60-74 years 1-dose series) [facility] Start: 10-03-2014 Screening for malignant neoplasm of colon Fecal occult blood test (FOBT,FIT) [facility] Start: 10-01-2014 FECAL OCCULT BLOOD FECAL OCCULT BLOOD [facility] Start: 10-01-2014 Screening for malignant neoplasm of colon Fecal Occult Blood [facility] Start: 2010 Screening for osteoporosis DEXA (modify frequency per FRAX score) [place], [place] Start: 2005 Screening for malignant neoplasm of breast Breast cancer screen [place], [place] Start: 2005 Screening for malignant neoplasm of colon [facility] Start: 2005 Zoster Vaccines (1 of 2) Zoster Vaccines (1 of 2) [facility] Start: 2000 COLOGUARD (FIT-DNA) COLOGUARD (FIT-DNA) [facility] Start: [address] COLONOGRAPHY [facility] Start: 2000 Screening for malignant neoplasm of colon [facility] Start: 2000 SIGMOIDOSCOPY SIGMOIDOSCOPY [facility] Start: 1995 Diabetes screen Diabetes screen [place], [place] Start: 1995 Lipid panel Lipid screen [place], [place] Start: 1995 Screening for malignant neoplasm of breast Mammogram [facility] Start: 1995 Screening mammography Mammogram [facility] Start: 1976 Screening for malignant neoplasm of cervix Cervical cancer screen [place], [place] Start: 1974 DTaP/Tdap/Td Vaccines (1 - Tdap) DTaP/Tdap/Td Vaccines (1 - Tdap) [facility] Start: 1973 Anxiety Screening Anxiety Screening [facility] Start: 1973 Depression Screening Depression Screening [facility] Start: 1973 Diabetes: Estimated Glomerular Filtration Rate for Kidney Health Diabetes: Estimated Glomerular Filtration Rate for Kidney Health [facility] Start: 1973 Diabetes: Urine Albumin-Creatinine Ratio for Kidney Health Diabetes: Urine Albumin-Creatinine Ratio for Kidney Health [facility] Start: 1973 Hepatitis C antibody, confirmatory test Hepatitis C Screening [facility] Start: 1973 Hepatitis C screening Hepatitis C Screening [facility] Start: 1971 COVID-19 Vaccine (1 of 2) COVID-19 Vaccine (1 of 2) [facility] Start: 1970 HIV screening [place], [place] Start: 1967 Adolescent depression screening assessment [facility] Start: 1967 COVID-19 Vaccine (1) COVID-19 Vaccine (1) [facility] Start: 1967 Depression screening using PHQ-9 (Patient Health Questionnaire 9) score [facility] Start: 1965 Diabetic foot examination [facility] Start: 1965 Glaucoma screening [facility] Start: 1965 Microalbumin measurement, urine, quantitative Urine Microalbumin [facility] Start: 1965 Ophthalmic examination and evaluation Ophthalmology Exam [facility] Start: 1965 Preventive dental service Diabetes: Dental Exam [facility] Start: 1965 Urine screening for protein Urine (micro)albumin/creatinin e ratio - Diabetes [facility] Start: 1961 Pneumococcal Vaccine: Age 65+ (1 of 2 - PPSV23) Pneumococcal Vaccine: Age 65+ (1 of 2 - PPSV23) [facility] Start: 1958 History and physical examination, annual for health maintenance Wellness Visit [facility] Start: 1958 Medicare Wellness Visit Medicare Wellness Visit [facility] Start: 1956 HEPATITIS A (1 of 2 - Risk 2-dose series) HEPATITIS A (1 of 2 - Risk 2-dose series) [facility] Start: 1956 Hepatitis A Vaccines (1 of 2 - Risk 2-dose series) Hepatitis A Vaccines (1 of 2 - Risk 2-dose series) [facility] Start: 1956 MMR Vaccines (1 of 1 - Standard series) MMR Vaccines (1 of 1 - Standard series) [facility] Start: 01-01-1956 COVID-19 Vaccine (#1) COVID-19 Vaccine (#1) [facility] Start: 1955 Fall risk assessment Falls Risk Assessment [facility] Start: 1955 Hemoglobin A1c measurement [facility] Start: 1955 Hepatitis B Vaccines (1 of 3 - 3-dose series) Hepatitis B Vaccines (1 of 3 - 3-dose series) [facility] Start: 1955 Hepatitis C screening Hepatitis C screen [place] Start: 1955 Lipid panel Lipid Panel [facility] Start: 1955 Medicare Annual Wellness (AWV) Medicare Annual Wellness (AWV) [facility] Start: 1955 Medicare Annual Wellness Visit Medicare Annual Wellness Visit (AWV) [facility] Start: 1955 Screening for malignant neoplasm of colon [facility] Start: 1955 Screening for osteoporosis Dexa Scan [facility] Start: 1955 Screening mammography Mammogram [facility] End: 06-20-2023 12 lead ECG ECG 12 Lead ECG Routine Closed displaced fracture of fifth metatarsal bone of left foot, initial encounter Type 2 diabetes mellitus with diabetic neuropathy, with long-term current use of insulin (HCC) 1 Occurrences starting 06/20/2022 until 06/20/2023 [facility] Comment on above: 1 Occurrences starting 06/20/2022 until 06/20/2023 [id number]. tumor marker [Units/volume] in Serum or Plasma [facility] Bacteria identified in Urine by Culture URINE CULTURE Microbiology Routine Recurrent UTI (urinary tract infection) 12/11/2023 9:11 AM EST [facility] Work Phone: End: 06-20-2023 Basic metabolic 1998 panel - Serum or Plasma Chem 7 Lab Routine Closed displaced fracture of fifth metatarsal bone of left foot, initial encounter Type 2 diabetes mellitus with diabetic neuropathy, with long-term current use of insulin (HCC) 1 Occurrences starting 06/20/2022 until 06/20/2023 [facility] Comment on above: 1 Occurrences starting 06/20/2022 until 06/20/2023 Bilirubin.direct [Mass/volume] in Serum or Plasma [facility] Blood ammonia measurement [facility] C reactive protein [Mass/volume] in Serum or Plasma [facility] CBC W Auto Different ial panel - Blood [facility] CBC W Auto Different ial panel - Blood [facility] End: 06-20-2023 Complete blood count with white cell differential, manual CBC and differential Lab Routine Closed displaced fracture of fifth metatarsal bone of left foot, initial encounter Type 2 diabetes mellitus with diabetic neuropathy, with long-term current use of insulin (HCC) 1 Occurrences starting 06/20/2022 until 06/20/2023 [facility] Work Phone: Comment on above: 1 Occurrences starting 06/20/2022 until 06/20/2023 End: 08-23-2022 Comprehensive metabolic 2000 panel - Serum or Plasma Comprehensive Metabolic Panel Lab Routine Gout of right foot due to renal impairment, unspecified chronicity 1 Occurrences starting 08/23/2021 until 08/23/2022 [facility] Comment on above: 1 Occurrences starting 08/23/2021 until 08/23/2022 Comprehensive metabo lic 2000 panel - Serum or Plasma [facility] End: 06-17-2025 DBT Breast - bilateral screening [facility] SCREEN[facility] Radiology Routine Encounter for screening mammogram for breast cancer 1 Occurrences starting 05/18/2024 until 06/17/2025 [facility] Work Phone: Comment on above: 1 Occurrences starting 05/18/2024 until 06/17/2025 DBT Breast - bilater al screening [facility] SCREENING W [facility] Radiology Routine Encounter for screening mammogram for breast cancer 06/17/2024 12:43 PM EDT [facility] Work Phone: End: 05-10-2026 DBT Breast - bilateral screening ELSA SCREENING W [facility]YN Radiology Routine Encounter for gynecological examination (general) (routine) without abnormal findings Encounter for screening mammogram for breast cancer 1 Occurrences starting 04/10/2025 until 05/10/2026 [facility] Work Phone: Comment on above: 1 Occurrences starting 04/10/2025 until 05/10/2026 DBT Breast - bilater al screening ELSA SCREENING W ERYN Radiology Routine Encounter for gynecological examination (general) (routine) without abnormal findings Encounter for screening mammogram for breast cancer 06/20/2025 1:28 PM EDT [facility] Work Phone: Direct antiglobulin test.unspecified reagent [Presence] on Red Blood Cells [facility] Ferritin [Mass/volum e] in Serum or Plasma [facility] Haptoglobin [Mass/vo lume] in Serum or Plasma [facility] Hemoglobin A1c/Hemoglobin.total in Blood [facility] Hemoglobin A1c/Hemoglobin.total in Blood [facility] Hepatic function panel [facility] INJECTION FOOT INJECTION FOOT L eft foot pain Closed displaced fracture of fifth metatarsal bone of left foot, initial encounter Plantar fascial fibromatosis of both feet [facility] Iron and Iron bindin g capacity panel - Serum or Plasma [facility] Lactate dehydrogenas e measurement [facility] Lipid 1995 panel - S prasanna or Plasma [facility] Lipid 1995 panel - S prasanna or Plasma [facility] End: 04-09-2024 [facility] SCREENING [facility] SCREENING Radiology Routine Encounter for screening mammogram for breast cancer 1 Occurrences starting 03/11/2023 until 04/09/2024 [facility] Work Phone: Comment on above: 1 Occurrences starting 03/11/2023 until 04/09/2024 End: 07-21-2025 MG Breast - left Diagnostic for implant [facility] DIAGNOSTIC LEFT Radiology Routine Abnormal mammogram 1 Occurrences starting 06/21/2024 until 07/21/2025 [facility] Comment on above: 1 Occurrences starting 06/21/2024 until 07/21/2025 End: 06-07-2026 Nerve conduction test Nerve conduction test Neurology Routine Diabetic polyneuropathy associated with type 2 diabetes mellitus (HCC) 1 Occurrences starting 06/07/2025 until 06/07/2026 [facility] Work Phone: Comment on above: 1 Occurrences starting 06/07/2025 until 06/07/2026 OPEN REDUCTION INTER NAL FIXATION FOOT/TOE(S) OPEN REDUCTION INTERNAL FIXATION FOOT/TOE(S) Left foot pain Closed displaced fracture of fifth metatarsal bone of left foot, initial encounter Plantar fascial fibromatosis of both feet [facility] Patient Education ED Fluid on the Knee [facility] Work Phone: Patient referral [facility] Work Phone: Prothrombin time [facility] Prothrombin time [facility] Radionuclide gastric emptying study [facility] Removal implant deep [employer]ARD[employer] RE MOVAL FOOT [employer] ANKLE History of removal of retained hardware [facility] End: 02-28-2024 Renal function 2000 panel - Serum or Plasma Renal Function Panel Lab Routine 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 1 Occurrences starting 02/27/2023 until 02/28/2024 [facility] Comment on above: 1 Occurrences starting 02/27/2023 until 02/28/2024 End: 06-20-2023 Standard chest X-ray XR Chest AP/PA and LAT Imaging Routine Closed displaced fracture of fifth metatarsal bone of left foot, initial encounter Type 2 diabetes mellitus with diabetic neuropathy, with long-term current use of insulin (HCC) 1 Occurrences starting 06/20/2022 until 06/20/2023 [facility] Comment on above: 1 Occurrences starting 06/20/2022 until 06/20/2023 SURGICAL PATHOLOGY [facility] Work Phone: Comment on above: Release Upon Ordering for 1 Occurrences starting 07/11/2022, 1 completed End: 08-23-2022 Urate [Mass/volume] in Serum or Plasma Uric acid Lab Routine Gout of right foot due to renal impairment, unspecified chronicity 1 Occurrences starting 08/23/2021 until 08/23/2022 [facility] Work Phone: Comment on above: 1 Occurrences starting 08/23/2021 until 08/23/2022 End: 02-28-2024 Urate [Mass/volume] in Serum or Plasma Uric acid Lab Routine 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 1 Occurrences starting 02/27/2023 until 02/28/2024 [facility] Work Phone: Comment on above: 1 Occurrences starting 02/27/2023 until 02/28/2024 End: 07-21-2025 US Breast - left limited US BREAST LTD LEFT Radiology Routine Abnormal mammogram 1 Occurrences starting 06/21/2024 until 07/21/2025 [facility] Work Phone: Comment on above: 1 Occurrences starting 06/21/2024 until 07/21/2025 X-ray of left foot XR Foot Left 3+ Views (Standard) Imaging Routine Closed displaced fracture of fifth metatarsal bone of left foot, initial encounter 2022 9:32 AM EDT [facility] Work Phone: X-ray of left foot XR Foot Left 3+ Views (Standard) Imaging Routine Postoperative state 07/17/2022 8:56 AM EDT [facility] Work Phone: End: 05-19-2025 XR Cervical spine 4 or 5 Views [facility] Area Work Phone: Comment on above: Once for 1 Occurrences starting 05/19/20 until 05/19/2025 End: 05-19-2025 XR Lumbar spine 4 Views [facility] Work Phone: Comment on above: Once for 1 Occurrences starting 05/19/20 until 05/19/2025 End: 05-30-2025 XR Thoracic spine 3 Views [facility] Work Phone: Comment on above: Once for 1 Occurrences starting 05/30/20 until 05/30/2025 [facility] Immunizations Immunization Date Immunization Notes Care Provider [facility] 12-11-2023 hepatitis A and hepatitis B vaccine Taty Julian MD Work Phone: [facility] 10-08-2023 influenza, high dose seasonal, preservative-free Taty Julian MD Work Phone: [facility] 10-08-2023 influenza virus vaccine, unspecified formulation Taty Julian MD Work Phone: [facility] 07-13-2023 hepatitis A and hepatitis B vaccine Taty Julian MD Work Phone: [facility] 06-11-2023 hepatitis A and hepatitis B vaccine Taty Julian MD Work Phone: [facility] 06-11-2023 hepatitis B vaccine, unspecified formulation Taty Julian MD Work Phone: [facility] 11-04-2022 COVID-19 booster vaccine, age 12+ yr, bivalent ([employer]) Taty Julian MD Work Phone: [facility] 10-14-2022 influenza, injectabl e, quadrivalent, contains preservative Taty Julian MD Work Phone: [facility] 10-14-2022 Seasonal, quadrivale nt, recombinant, injectable influenza vaccine, preservative free Bill Kulkarni Jr., DPM Work Phone: [facility] 09-18-2022 influenza, injectabl e, quadrivalent, preservative free Dr. Taty Julian Work Phone: [facility] 09-18-2022 influenza, seasonal, injectable Dr. Taty Julian Work Phone: [facility] 10-03-2021 Covid (Moderna) Dr. Taty negrete Work Phone: [facility] 08-08-2021 influenza, high dose seasonal, preservative-free Bill Kulkarni Jr., DPM Work Phone: [facility] 08-08-2021 influenza, high-dose , quadrivalent vaccine (FLUZONE HIGH DOSE QUADRIVALENT) Taty Julian MD Work Phone: [facility] Work Phone: 08-08-2021 pneumococcal polysaccharide vaccine, 23 valmatthew Kulkarni Jr., DPM Work Phone: [facility] 01-24-2021 COVID-19 vaccine, fu ll dose (MODERNA) Taty Julian MD Work Phone: [facility] 12-25-2020 COVID-19 vaccine, fu ll dose (MODERNA) Taty Julian MD Work Phone: [facility] 08-08-2020 pneumococcal conjuga te vaccine, 13 valmatthew Kulkarni Jr., DPM Work Phone: [facility] 07-24-2020 influenza, high dose seasonal, preservative-free Bill Shad Jr., DPM Work Phone: [facility] 07-24-2020 influenza, high-dose , quadrivalent vaccine (FLUZONE HIGH DOSE QUADRIVALENT) Taty Julian MD Work Phone: [facility] Work Phone: 07-24-2020 zoster vaccine recombinant Bill Shad Jr., DPM Work Phone: [facility] 12-21-2019 zoster vaccine recombinant Bill Shad Jr., DPM Work Phone: [facility] 12-01-2018 tetanus toxoid, redu caity diphtheria toxoid, and acellular pertussis vaccine, adsorbed Bill Dulon Jr., DPM Work Phone: [facility] 08-22-2015 zoster vaccine, live Teoemia h Shad Jr., DPM Work Phone: [facility] 10-04-2007 tetanus toxoid, redu caity diphtheria toxoid, and acellular pertussis vaccine, adsorbed Bill Dulon Jr., DPM Work Phone: [facility] Payers Date Payer Category Payer Self-pay [id number] 2020 Blue Cross Blue Shield 1.2.8 [id number] 2020 Blue Cross Blue Shie shannan Managed Care - [facility] [id number] .[id number] 5 2020 Medicare [id number] .2.7.3.083978.315 2020 Medicare [id number]. 1.13.385 .2.7.3.602112.315 2020 Medicare supplementa l policy (as second payer) [id number] .[id number] 5 2020 Unknown [id number] 1.2.840.936574.1.13.385 .2.7.3.291907.315 2020 Medicare [id number] 1.2.840.704278.1.13.239 .2.7.3.819439.315 2020 Unknown [id number] 1.2.840.431156.1.13.239 .2.7.3.810102.315 2018 Unknown 2015 Unknown [id number] 1955 Unknown [id number] 2.16.840.1.800470.3.579 .2.627 1955 Unknown [id number] 2.16.840.1.735956.3.579 .2.71 1955 Unknown [id number] 2.16.840.1.916627.3.579 .2. 1955 Unknown [id number] 2.16.840.1.304348.3.579 .2.717 1955 Unknown [id number] 2.16.840.1.153800.3.579 .2. 1955 Unknown [id number] 2.16.840.1.092029.3.579 .2.903 1955 Unknown [id number] 2.16.840.1.841361.3.579 .2.903 1955 Unknown [id number] 2.16.840.1.635474.3.579 .2.903 1955 Unknown [id number] 2.16.840.1.293736.3.579 .2.903 1955 Unknown [id number] 2.16.840.1.939219.3.579 .2.356 1955 Unknown [id number] 2.16.840.1.178668.3.579 .2.356 1955 Unknown [id number] 2.16.840.1.692029.3.579 .2.1069 1955 Unknown [id number] 2.16.840.1.172244.3.579 .2.1243 1955 Unknown [id number] 2..840.1.318587.3.579 .2.1242 1955 Unknown [id number] 2.16.840.1.541367.3.579 .2.124 1955 Unknown [id number] 2..840.1.947188.3.579 .2.903 1955 Unknown [id number] 2.16.840.1.078730.3.579 .2.903 1955 Unknown [id number] 2..840.1.076049.3.579 .2.903 1955 Unknown [id number] 2..840.1.732904.3.579 .2.903 Unknown [id number] Unknown [id number] 2.16.840.1.025372.3.579 .2.462 Unknown [id number] 2.16.840.1.739687.3.579 .2.462 Unknown [id number] 2.16.840.1.322042.3.579 .2.462 Unknown [id number] 2.16.840.1.678982.3.579 .2.462 Unknown [id number] 2.16.840.1.938030.3.579 .2.462 Unknown [id number] 2.16.840.1.203638.3.579 .2.462 Unknown [id number] 2.16.840.1.815605.3.579 .2.462 Unknown [id number] 2.16.840.1.659306.3.579 .2.462 Unknown [id number] 2.16.840.1.111592.3.579 .2.462 Unknown [id number] 2.16.840.1.362291.3.579 .2.462 Unknown [id number] 2.16.840.1.178895.3.579 .2.462 Unknown [id number] 2.16.840.1.123025.3.579 .2.462 Unknown [id number] 2.16.840.1.236366.3.579 .2.462 Unknown [id number] 2.16.840.1.483530.3.579 .2.462 Unknown [id number] 2.16.840.1.848052.3.579 .2.462 Unknown [id number] 2.16.840.1.285744.3.579 .2.462 Unknown [id number] 2.16.840.1.610931.3.579 .2.462 Social History Date Type Detail Facility Tobacco smoking status ORIS Unknown if ever smoked [facility] Start: 1955 Sex Assigned At Not on file [facility] Start: 09-04-2020 End: 07-30-2025 Tobacco smoking status NHIS Never smoker [facility] [employer] Start: 09-04-2020 End: 04-26-2021 Tobacco use and exposure Never used [place] Start: 09-04-2020 End: 07-12-2025 Alcohol intake Ex-drinker (finding) [facility] [place] [place] Start: 04-14-2021 End: 04-26-2021 Tobacco smoking status NHIS Former smoker [facility] Start: 04-14-2021 End: 04-10-2025 Alcohol intake Current drinker of alcohol (finding) [facility] Start: 09-30-2020 End: 03-11-2023 Exposure to SARS-CoV-2 (event) Not sure [facility] Start: 04-26-2021 End: 06-28-2025 No alcohol use No alcohol use [facility] Work Phone: Start: 10-19-1969 End: 06-08-1975 History of tobacco use Current smoker [facility] Start: 10-19-1969 End: 06-08-1975 History of tobacco use Cigarette Smoker [facility] Start: 11-22-2020 History SDOH Alcohol Comment rare, once a year [facility] Start: 06-07-2014 End: 06-26-2022 Alcohol Comment rare [facility] Start: 1955 Sex Assigned At Female C [facility] Start: 01-18-2023 End: 12-02-2023 Tobacco smoking status ORIS Unknown if ever smoked [facility] Start: 09-10-2022 End: 06-28-2025 Tobacco use panel [facility] Work Phone: Start: 09-23-2021 Gender identity Identifies as female gender (finding) [facility] Start: 09-23-2021 Sexual orientation Heterosexual (fin ding) [facility] Start: 09-19-2012 End: 09-13-2022 Adult Depression Screening Assessment 0 [facility] Work Phone: Start: 03-15-2024 Tobacco Comment Smoked when I was younger [facility] Start: 03-15-2024 Alcohol Comment Icasionally Ann castillo Has the electric, gas, oil, or water company threatened to shut off services in your home in past 12Mo No [facility] Are you now , , , , never or living with a partner? [facility] How often to you hav e a drink containing alcohol? Never [facility] Do you feel stress - tense, restless, nervous, or anxious, or unable to sleep at night because your mind is troubled all the time - these days [OSQ] Not at all [facility] (I/We) worried whether (my/our) food would run out before (I/we) got money to buy more. Never true [facility] Start: 05-20-2022 End: 01-10-2025 Sex Female (finding) [email or web address] NEGATED: Highlighted row Not [facility] Medical Equipment Procedure Code Equipment Code Equipment Origin al Text Equipment Identifier Dates EGD, with monitored anesthesia care Oesophageal endoscopic ligator, single-useHaemorrho id ligator [id number] FDA Start: 01-19-2023 EGD, with monitored anesthesia care SUPER 7 SPEEDBAND/ LIGATOR FDA Start: 04-08-2023 EGD, with monitored anesthesia care SUPER 7 SPEEDBAND/ LIGATOR FDA Start: 04-08-2023 EGD, with monitored anesthesia care SUPER 7 SPEEDBAND/ LIGATOR FDA Start: 04-08-2023 EGD, with monitored anesthesia care Oesophageal endoscopic ligator, single-useHaemorrho id ligator [id number] FDA Start: 08-10-2023 EGD, with monitored anesthesia care SUPER 7 SPEEDBAND/ LIGATOR FDA Start: 04-08-2023 EGD, with monitored anesthesia care SUPER 7 SPEEDBAND/ LIGATOR FDA Start: 04-08-2023 EGD, with monitored anesthesia care Oesophageal endoscopic ligator, single-useHaemorrho id ligator [id number] FDA Start: 07-06-2024 EGD, with monitored anesthesia care SUPER 7 SPEEDBAND/ LIGATOR FDA Start: 11-09-2024 EGD, with monitored anesthesia care SUPER 7 SPEEDBAND/ LIGATOR FDA Start: 04-08-2023 EGD, with monitored anesthesia care SUPER 7 SPEEDBAND/ LIGATOR FDA Start: 11-09-2024 EGD, with monitored anesthesia care SUPER 7 SPEEDBAND/ LIGATOR FDA Start: 04-08-2023 EGD, with monitored anesthesia care SUPER 7 SPEEDBAND/ LIGATOR FDA Start: 11-09-2024 EGD, with monitored anesthesia care SUPER 7 SPEEDBAND/ LIGATOR FDA Start: 04-08-2023 EGD, with monitored anesthesia care SUPER 7 SPEEDBAND/ LIGATOR FDA Start: 11-09-2024 EGD, with monitored anesthesia care Oesophageal endoscopic ligator, single-useHaemorrho id ligator [id number] FDA Start: 02-27-2025 EGD, with monitored anesthesia care SUPER 7 SPEEDBAND/ LIGATOR FDA Start: 04-08-2023 EGD, with monitored anesthesia care SUPER 7 SPEEDBAND/ LIGATOR FDA Start: 11-09-2024 EGD, with monitored anesthesia care SUPER 7 SPEEDBAND/ LIGATOR FDA Start: 04-08-2023 EGD, with monitored anesthesia care SUPER 7 SPEEDBAND/ LIGATOR FDA Start: 11-09-2024 EGD, with monitored anesthesia care SUPER 7 SPEEDBAND/ LIGATOR FDA Start: 04-08-2023 EGD, with monitored anesthesia care SUPER 7 SPEEDBAND/ LIGATOR FDA Start: 11-09-2024 EGD, with monitored anesthesia care SUPER 7 SPEEDBAND/ LIGATOR FDA Start: 04-08-2023 EGD, with monitored anesthesia care SUPER 7 SPEEDBAND/ LIGATOR FDA Start: 11-09-2024 Ti Non Lock Scre w 2.4 X 12mm [id number] Start: 06-27-2022 Comment on above: Description: Sterili zer 2 Load 4 5th Met Hook Plate [id number] Start : 06-27-2022 Comment on above: Description: Sterili zer 2 Load 4 Ti Lock Screw 2.4x10mm [id number] Start: 06-27-2022 Comment on above: Description: Sterili zer 2 Load 4 Ti Lock Screw 2. 4 X 12mm [id number] Start: 06-27-2022 Comment on above: Description: Sterili zer 2 Load 4 Ti Lock Screw 2.4x14mm [id number] Start: 06-27-2022 Comment on above: Description: Sterili zer 2 Load 4 Goals Date Patient Goal Desired Activity /State Functional Status Date Assessment Result Facility 01-21-2023 Functional status Activity Abili ty Independent [facility] Work Phone: 01-21-2023 Functional status Ambulates [facility] Work Phone: 05-09-2015 Are you deaf, or do you have serious difficulty hearing No 05/09/2015 2:35 PM IGORT Vivien Sharma MA No [facility] 05-09-2015 Are you blind, or do you have serious difficulty seeing, even when wearing glasses No 05/09/2015 2:35 PM IGORT Vivien Sharma MA No [facility] 05-09-2015 Do you have serious difficulty walking or climbing stairs No 05/09/2015 2:35 PM EDT Vivien Sharma MA No [facility] 05-09-2015 Do you have difficul ty dressing or bathing No 05/09/2015 2:35 PM EDT Vivien Sharma MA No [facility] 05-09-2015 Because of a physica l, mental, or emotional condition, do you have difficulty doing errands alone such as visiting a physician's office or shopping No 05/09/2015 2:35 PM EDT Vivien Sharma MA No [facility] Mental Status Date Assessment Result Facility 02-27-2025 Cognitive function Level Of Cons ciousness Drowsy [facility] Work Phone: 02-27-2025 Cognitive function Voice/Name [facility] Work Phone: 11-09-2024 Cognitive function Voice/Name [facility] Work Phone: 08-10-2023 Cognitive function Voice/Name [facility] Work Phone: 04-08-2023 Cognitive function Voice/Name [facility] Work Phone: 01-21-2023 Cognitive function Voice/Name [facility] Work Phone: 05-09-2015 Because of a physica l, mental, or emotional condition, do you have serious difficulty concentrating, remembering, or making decisions No 05/09/2015 2:35 PM EDVivien Devi MA No [facility] Clinical Notes 03-27-2016 to 08-09-2025 Note Date & Type Note Facility 08-09-2025 Note HNO ID: [id number] Author: BHUPINDER CUENCA PA-C Service: ? Author Type: Physician Construction Rigger Type: Progress Notes Filed: 08/09/2025 16:03 Note Text: HISTORY OF PRESENT ILLNESS: Krista is a 70 year old female. She is here for evaluation of Left knee pain. Patient reports increased pain and swelling over the last 3 months. She was seen in [facility] on 07/30 and had knee aspiration which was negative for infection or crystals. Patient does have a history of gout. Unable to take NSAID or tylenol due to cirrhosis. PAIN EVALUATION 08/09/2025 1454 Pain Level: 4 Pain Location: Knee-Left Description: Stabbing/Not Incision Duration Amount of Time: 3 Duration Units: Months Frequency: Intermittent Intervention/Comfort measure: Medication;Reposition;Relaxation MEDICATIONS Current Outpatient Medications on File Prior to Visit Medication Sig dulaglutide (TRULICITY) 3 mg/0.5 mL pen injector Inject 3 mg subcutaneously one time a week. levothyroxine (SYNTHROID) 75 mcg tablet Take 1 tablet by mouth once daily. ascorbic acid, vitamin C, (VITAMIN C) 500 mg tablet Take 1 tablet by mouth two times a day. ferrous sulfate 325 mg (65 mg iron) tablet Take 1 tablet by mouth every other day. carvedilol (COREG) 6.25 mg tablet Take 1 tablet by mouth two times a day with meals. pantoprazole DR (PROTONIX) 40 mg tablet Take 1 tablet by mouth two times a day. ezetimibe (ZETIA) 10 mg tablet Take 1 tablet by mouth once daily. metFORMIN (GLUCOPHAGE) 1,000 mg tablet Take 1 tablet by mouth two times a day with meals. rifAXIMin (XIFAXAN) 550 mg tablet Take 550 mg by mouth two times a day. spironolactone (ALDACTONE) 25 mg tablet Take 25 mg by mouth once daily. Take half pill daily allopurinol (ZYLOPRIM) 100 mg tablet Take 1 tablet by mouth once daily. Magnesium 250 mg tab Take 1 tablet by mouth twice daily. lactulose 10 gram/15 mL solution Take 30 mL by mouth. gabapentin (NEURONTIN) 400 mg capsule Take 1 capsule by mouth twice daily. vitamin C-biotin (NTJV-UGLT-WNZMM, VIT C-BIOTIN,) 50 mg -1,250 mcg chew Take 2 tablets by mouth once daily. EMGALITY PEN 120 mg/mL pen Inject 120 mg subcutaneously once every month. fluorometholone (FML LIQUID FILM) 0.1 % ophthalmic suspension rizatriptan (MAXALT) 10 mg tablet MV-MN/FOLIC ACID/CALCIUM/VIT K (ONE-A-DAY WOMEN'S 50 PLUS ORAL) Take by mouth. L.ACID/L.CASEI/B.BIF/B.MINDA/FOS (PROBIOTIC BLEND ORAL) Take by mouth. cycloSPORINE (RESTASIS) 0.05 % ophthalmic emulsion Use 1 Drop in both eyes twice daily. ERYTHROMYCIN BASE (ERYTHROMYCIN OPHTHALMIC) Use in eyes. VIT C/NARCISA AC/LUT/COPPER/ZNOX (PRESERVISION LUTEIN ORAL) Take 1 tablet by mouth twice daily. No current facility-administered medications on file prior to visit. ALLERGIES ALLERGIES Allergen Reactions Tauqtwu-Tls-Srw Red* Myalgia Knees shake, weak and joints ache Cipro [Ciprofloxaci* Hives Metronidazole Hives Penicillins Rash Age 19 -- rash all over, hives Sulfa (Sulfonamide * Rash PAST MEDICAL HISTORY PAST MEDICAL HISTORY Diagnosis Date Arthritis in Hands Cervical disc disease Diabetes (HCC) Gout Macular degeneration Other forms of migraine Personal history of colonic polyps Snoring does not use C-pap Thyroid disease PAST SURGICAL HISTORY PAST SURGICAL HISTORY Procedure Laterality Date ABDOMINAL SURGERY HX DELIVERY ONLY , low cervical COLONOSCOPY 07/11/2022 repeat in 5 years COLONOSCOPY FLX DX W/COLLJ SPEC WHEN PFRMD 01/09/2010 Colonoscopy COLONOSCOPY FLX DX W/COLLJ SPEC WHEN PFRMD 01/15/2011 COLONOSCOPY FLX DX W/COLLJ SPEC WHEN PFRMD 03/27/2016 Colonoscopy COLONOSCOPY FLX DX W/COLLJ SPEC WHEN PFRMD 06/08/2017 Colonoscopy DILATION AND CURETTAGE DXAND/THER NONOBSTETRIC Dilation AND curettage EGD W/O [facility] SPEC VARICIES INJ N/A 01/20/2023 [facility] EGD W/O [facility] SPEC VARICIES INJ N/A 04/08/2023 [facility] EGD W/O [facility] SPEC VARICIES INJ N/A 11/09/2024 [facility] ESOPHAGOGASTRODUODENOSCOPY TRANSORAL DIAGNOSTIC 01/2004 EGD ESOPHAGOGASTRODUODENOSCOPY TRANSORAL DIAGNOSTIC 03/29/2018 EGD FRACTURE SURGERY LIG/TRNSXJ FLP TUBE ABDL/VAG APPR UNI/BI PAST SURGICAL HISTORY OF Left 07/07/2022 Left foot surgery with plates and screws placed STEREOTACTIC CORE BIOPSY 07/13/2007 LEFT BREAST- benign TONSILLECTOMY HX TONSILLECTOMY PRIMARY/SECONDARY SOCIAL HISTORY Tobacco: Ex-smoker FAMILY HISTORY Does a similar condition to what you are experiencing run in your family? No REVIEW OF SYSTEMS: All other systems negative. PHYSICAL EXAM: PE: All other systems deferred. GENERAL: Appears healthy, well-nourished, no deformities. HABITUS: Obese Gait: Normal, the patient did not have trouble getting onto the exam table. Left: Alignment: Varus deformity, Correctable Range of motion is 0 degrees in extension and 100 degrees of flexion. Extension La degrees Pain with ROM: Yes Effusion: Slight Tender to the palpation of Me (more content not included)... [facility] 08-09-2025 Note HNO ID: [id number] Author: QI HERNADEZ Tech Service: Radiology Author Type: Board Design Engineer Type: Progress Notes Filed: 08/09/2025 14:51 Note Text: Radiology Service Progress Note PATIENT NAME: Krista Campbell DATE OF SERVICE: August 09, 2025 TIME: 2:51 PM PATIENT IDENTITY VERIFICATION COMPLETED USING TWO (2) IDENTIFIERS: Name and Date of confirmed by patient verbally. FALL SCREENING: Has the patient had 2 falls in the last year or 1 fall with injury or currently using an Ambulatory Assistive Device (Walker, Cane, Wheelchair, Crutches, etc.)? No PATIENT GENDER DATA: Assigned female at . status: : No status: NO. PATIENT RELEVANT IMPLANT DATA REVIEWED: Not Applicable PATIENT PRESENTS WITH AN IMPLANTABLE OR ATTACHED MANAGER IN TRAINING: No RADIOLOGY DEPARTMENT: General X-ray: Exam(s) Completed: Lower Extremity X-Ray(s): Knee, AP / Lat / Tunne / Merchant Left and Wt. Bearing and Leg Length PERIPHERAL IV DATA: Not applicable SIGNED BY: Meka Peralta August 09, 2025 2:51 PM [facility] 08-02-2025 Note HNO ID: [id number] Author: SARA GOFF APRN.VISUAL BASIC DEVELOPER Service: ? Author Type: Nurse Practitioner Type: Progress Notes Filed: 08/02/2025 17:33 Note Text: This is a 70 year old female who presents today with: ER follow up, inflammatory arthritis HISTORY OF PRESENT ILLNESS: Krista is a 70-year-old female presenting for follow-up of right knee pain. Right Knee Pain: - Acute onset of left knee pain, swelling, and erythema 07/30 - Evaluated at urgent care and [facility]; underwent knee aspiration with 35 cc of fluid removed. - Synovial fluid analysis showed no growth in culture, no crystals. CRP was elevated but ESR was not. - Denies known trauma or previous similar episodes. - Pain localized to the medial aspect of the knee, described as "poking an ice pick." - Pain exacerbated by attempting full flexion/extension of the knee; unable to fully bend the knee. - Currently managing pain with elevation, ice and oxycodone (6 pills prescribed, 3 taken). - Previous orthopedic care for shoulder and elbow , Dr Hudson, no other orthopedic. Hasn't seen him since 2020 - Advised by Dr. Brennan to follow up with an orthopedic doctor as well. Gout: - History of gout, currently managed with allopurinol. PAST MEDICAL HISTORY: PAST MEDICAL HISTORY Diagnosis Date Arthritis in Hands Cervical disc disease Diabetes (HCC) Gout Macular degeneration Other forms of migraine Personal history of colonic polyps Snoring does not use C-pap Thyroid disease PAST SURGICAL HISTORY Procedure Laterality Date ABDOMINAL SURGERY HX DELIVERY ONLY , low cervical COLONOSCOPY 07/11/2022 repeat in 5 years COLONOSCOPY FLX DX W/COLLJ SPEC WHEN PFRMD 01/09/2010 Colonoscopy COLONOSCOPY FLX DX W/COLLJ SPEC WHEN PFRMD 01/15/2011 COLONOSCOPY FLX DX W/COLLJ SPEC WHEN PFRMD 03/27/2016 Colonoscopy COLONOSCOPY FLX DX W/COLLJ SPEC WHEN PFRMD 06/08/2017 Colonoscopy DILATION AND CURETTAGE DXAND/THER NONOBSTETRIC Dilation AND curettage EGD W/O [facility] SPEC VARICIES INJ N/A 01/20/2023 [facility] EGD W/O [facility] SPEC VARICIES INJ N/A 04/08/2023 [facility] EGD W/O [facility] SPEC VARICIES INJ N/A 11/09/2024 [facility] ESOPHAGOGASTRODUODENOSCOPY TRANSORAL DIAGNOSTIC 01/2004 EGD ESOPHAGOGASTRODUODENOSCOPY TRANSORAL DIAGNOSTIC 03/29/2018 EGD FRACTURE SURGERY LIG/TRNSXJ FLP TUBE ABDL/VAG APPR UNI/BI PAST SURGICAL HISTORY OF Left 07/07/2022 Left foot surgery with plates and screws placed STEREOTACTIC CORE BIOPSY 07/13/2007 LEFT BREAST- benign TONSILLECTOMY HX TONSILLECTOMY PRIMARY/SECONDARY ALLERGIES Gywdjxm-Tpd-Jwu Reductase Inhibitors, Cipro [Ciprofloxacin], Metronidazole, Penicillins, and Sulfa (Sulfonamide Antibiotics) MEDICATIONS Current Outpatient Medications Medication Sig dulaglutide (TRULICITY) 3 mg/0.5 mL pen injector Inject 3 mg subcutaneously one time a week. levothyroxine (SYNTHROID) 75 mcg tablet Take 1 tablet by mouth once daily. ascorbic acid, vitamin C, (VITAMIN C) 500 mg tablet Take 1 tablet by mouth two times a day. ferrous sulfate 325 mg (65 mg iron) tablet Take 1 tablet by mouth every other day. carvedilol (COREG) 6.25 mg tablet Take 1 tablet by mouth two times a day with meals. pantoprazole DR (PROTONIX) 40 mg tablet Take 1 tablet by mouth two times a day. ezetimibe (ZETIA) 10 mg tablet Take 1 tablet by mouth once daily. metFORMIN (GLUCOPHAGE) 1,000 mg tablet Take 1 tablet by mouth two times a day with meals. rifAXIMin (XIFAXAN) 550 mg tablet Take 550 mg by mouth two times a day. spironolactone (ALDACTONE) 25 mg tablet Take 25 mg by mouth once daily. Take half pill daily allopurinol (ZYLOPRIM) 100 mg tablet Take 1 tablet by mouth once daily. Magnesium 250 mg tab Take 1 tablet by mouth twice daily. lactulose 10 gram/15 mL solution Take 30 mL by mouth. gabapentin (NEURONTIN) 400 mg capsule Take 1 capsule by mouth twice daily. vitamin C-biotin (ACYG-EZFG-IDNGY, VIT C-BIOTIN,) 50 mg -1,250 mcg chew Take 2 tablets by mouth once daily. EMGALITY PEN 120 mg/mL pen Inject 120 mg subcutaneously once every month. fluorometholone (FML LIQUID FILM) 0.1 % ophthalmic suspension rizatriptan (MAXALT) 10 mg tablet MV-MN/FOLIC ACID/CALCIUM/VIT K (ONE-A-DAY WOMEN'S 50 PLUS ORAL) Take by mouth. L.ACID/L.CASEI/B.BIF/B.MINDA/FOS (PROBIOTIC BLEND ORAL) Take by mouth. cycloSPORINE (RESTASIS) 0.05 % ophthalmic emulsion Use 1 Drop in both eyes twice daily. ERYTHROMYCIN BASE (ERYTHROMYCIN OPHTHALMIC) Use in eyes. VIT C/NARCISA AC/LUT/COPPER/ZNOX (PRESERVISION LUTEIN ORAL) Take 1 tablet by mouth twice daily. No current facility-administered medications for this visit. FAMILY HISTORY Problem Relation Age of Onset Diabetes Mother Hypertension Mother Hypertension Father Diabetes Father SOCIAL HISTORY[1] REVIEW OF SYSTEMS Musculoskeletal: (+) knee pain, (-) knee swelling, (-) knee erythema, (-) knee warmth See HPI EXAM: BP 106/62 Pulse 73 Wt 68.8 kg (151 (more content not included)... [facility] 07-30-2025 Discharge summary [facility] 07-30-2025 Discharge summary Note Date/Time July 30, 2025 5:53pm [facility] Medical Records Department [address] [place] [address] Emergency Department Summary 07/30/25 MR#: [id number] Acct: [id number] Name: KRISTA CAMPBELL Rep #:[id number] : 1955 70 From: Sergey Brennan MD PCP: Dr. Taty Julian MD Status:RE G ER Location: ED HPI History of Present Illness Chief Complaint: Lower Extremity Injury Detail of Chief Complaint: Patient presents with left knee pain and swelling. Informant: patient Onset/Context/Timing Onset: Weeks (This episode started greater than a week ago. Swelling several days ago) Context: Sudden Onset Timing: Continuous and Waxes and wanes Quality: Patient and swelling Location: Left knee Current Severity: Mild Maximum Severity: Severe Worsened by: Movement and weightbearing Relieved by: Nothing Associated Symptoms Associated Symptoms: No fever or chills. History of gout on allopurinol Narrative Narrative: Patient is a 70-year-old woman. She has history of esophageal variceals, thrombocytopenia, cirrhosis, GI bleed who presents with atraumatic left knee pain. She does have history of gout. She is present on allopurinol. She denies fever, chills night sweats. She complains of pain with any movement of the left knee. The pain started greater than a week ago. Swelling has been since Wednesday, October 8. She has no prior history of knee problems. She denies paresthesia, anesthesia or motor weakness. Prior similar symptoms: No Recent Illness/Hospitalization: No PFSH PFS Medical History Back pain Wears glasses Thyroid disease Gout Arthritis Anemia High cholesterol History of GI bleed History of diverticulitis Gastric reflux Former smoker History of edema History of echocardiogram History of stress test Hypertension Diabetes Migraines Home Medications ?Medication ?Instructions ?Recorded ?Last Taken ?Type rizatriptan 10 mg tablet 10 mg PO PRN PRN Migraine He adache 12/28/13 Unknown History Lactobacillus acidophilus 10 mg PO DAILY Check with pr imary 01/18/23 02/19/25 History (Acidophilus capsule) doctor allopurinol 100 mg tablet 100 mg PO DAILY Check with p rimary 01/18/23 02/26/25 History doctor cyclosporine 0.05 % eye drops in a 1 drp ophthalmic (e ye) BID health 01/18/23 0 02/26/25 History dropperette (Restasis) maintenance erythromycin 5 mg/gram (0.5 %) eye 1 applic ophthalmic (eye) QHS 01/18/23 02/26/25 History ointment health maintenance ezetimibe 10 mg tablet 10 mg PO DAILY Check with pr imary 01/18/23 02/26/25 History doctor fluorometholone 0.1 % eye 1 drp ophthalmic (eye) BID h ealth 01/18/23 02/26/25 History drops,suspension maintenance gabapentin 400 mg tablet 800 mg PO Q health mainten ance 01/18/23 02/26/25 History galcanezumab-gnlm 120 mg/mL 120 mg subcut QMONTH Check with 01/18/23 02/24/25 History subcutaneous pen injector primary doctor (Emgality Pen) metformin 1,000 mg tablet 1,000 mg PO BID diabetic 12/1111/08/24 History multivitamin with minerals 2 tab PO DAILY Check with p rimary 01/18/23 02/19/25 History (Hair,Skin and Nails tablet) doctor evsnraisread-Fv-gkpf-minerals 18 2 tab PO DAILY health maintenance 01/18/23 02/19/25 History mg-0.4 mg tablet vit C 250 mg-vit E 90 mg-zinc 40 1 tab PO BID Check wi primary 01/18/23 Unknown History mg-copper 1 at-irmgrv-utywws doctor capsule (PreserVision AREDS-2) magnesium 200 mg tablet 200 mg PO DAILY Check with p rimary 07/04/24 02/19/25 History doctor ascorbic acid (vitamin C) 500 mg 500 mg PO BID 1 month #60 tabs 12/29/24 02/19/25 Rx chewable tablet elderberry fruit 350 mg capsule 700 mg PO QDAY 5 02/19/25 History ferrous sulfate 325 mg (65 mg 325 mg PO QDAY 1 month # 30 tabs 12/29/24 02/19/25 Rx iron) tablet levothyroxine 75 mcg tablet 75 mcg PO QDAY 1 month #30 tabs 12/29/24 02/27/25 Rx pantoprazole 40 mg tablet,delayed 40 mg PO QDAY 02/27/25 History release vit C 62.5 mg-vit D3 15 mcg-zinc 2 tab PO QDAY 5 02/19/25 History 2.75 mg-herbal no.358 chewable tablet (Immune Power) lactulose 10 gram/15 mL oral 15 ml PO BID 1 month #3,7 85 mL 03/15/25 Unknown Rx solution spironolactone 25 mg tablet 25 mg PO DAILY 1 month #30 tabs 03/15/25 Unknown Rx dulaglutide 3 mg/0.5 mL 3 mg subcut TH Check with pr imary 04/24/25 Unknown History subcutaneous pen injector doctor (Trulicity) rifaximin 550 mg tablet (Xifaxan) 550 mg PO BID 30 day s #60 tabs 05/15/25 Unknown Rx carvedilol 6.25 mg tablet 6.25 mg PO BID 1 month #60 t abs 07/20/25 Unknown Rx oxycodone 5 mg capsule 5 mg PO Q8H PRN pain 2 days #6 caps 07/30/25 Unknown Rx Allergy/AdvReac Type Severity Reaction Status Date / Time ciprofloxacin (From Cipro) Allergy Other Verified 07/30/25 12:49 ciprofloxacin HCl (From Allergy Other Verified 07/30/25 12:49 Cipro) metronidazole Allergy Other Verified 07/30/25 12:49 Penicillins (PCN) Allergy Other Verified 07/30/25 12:49 Sulfa (Sulfonamide Allergy Rash Verified 07/30/25 12:49 Antibiotics) Bmeyiyl-AQP-TiX Reductase AdvReac Other Verified 07/30/25 12:49 Inhibitor Family History Grandfather Diabetes Grandmother Diabetes Father Heart problem Mother CVA (cerebral vascular accident) Surgical History History of esophagogastroduodenoscopy (EGD) Hx of esophagogastroduodenoscopy Hx of tonsillectomy History of Status post left foot surgery Social History Smoking Status: Never smoker alcohol intake: never substance use type: does not use ROS ROS ED Constitutional Constitutional ED: Denies chills, fever(s), subjective or sweats Cardiovascular Cardiovascular: Denies chest pain or palpitations Respiratory/Chest Respiratory/Chest: Denies cough or dyspnea Musculoskeletal Musculoskeletal: Reports other Details: Left knee pain and swelling only ; Denies arthralgias or myalgias Integumentary Denies rash Neurologic Neurologic: Denies paresthesias or weakness Psychiatric Psychiatric: Denies anxiety or depression Endocrine Endocrinology: Denies cold intolerance or heat intolerance Hematologic/Lymphatic Hematologic/Lymphatic: Reports systems reviewed and no addt'l complaints, exceptas documented EXAM Physical Exam Const Vital Signs: 07/30/25 12:48 07/30/25 16:48 Temperature 98.2 F 97.8 F Temperature Source Oral Oral Pulse Rate 84 79 Respiratory Rate 16 15 Blood Pressure 116/58 L 126/68 H Blood Pressure Mean 77 87 Pulse Ox 100 98 Oxygen Delivery Method Room Air Room Air Positive well nourished and well developed General Appearance ED: well developed and NAD; Negative for pallor HEENT Reports moist mucous membranes HEENT Narrative: Head is atraumatic and normocephalic. Eyes PERRL and EOMs intact bilaterally General Eye ED: Negative for scleral icterus Resp normal respiratory effort Cardio regular rate and regular rhythm Extremity Extremity Narrative: Left knee is markedly swollen. The patella may be slightly ballotable. There is an obvious effusion. Patient is able to hold her leg in extension against gravity. She is only able to flex to approximately 150 degrees without having significant pain. The knee is warm. There is no erythema. There is no area ofinduration or lymphangitis. There is no popliteal angle lymphadenopathy. DP pulses palpable. There is no fullness or mass noted the popliteal fossa. Thereis no pain along distribution deep venous system or palpable cords. There is noleg vein distention. There is no discoloration of the left lower extremity in comparison to the right. Neuro oriented x3, CN's II-XII intact bilaterally and no sensory deficits noted Sensorium / Orientation: alert Psych mental status grossly normal Skin no rashes or lesions noted, no wounds and skin turgor normal General Skin Exam: Negative for jaundice or pallor MDM MDM MDM Narrative Medical decision making narrative: Differential diagnosis is effusion due to osteoarthritis, crystal induced monoarticular arthritis versus pyogenic arthritis. Suspected crystal induced since she has history of gout. Will consent for arthrocentesis. Will inject 1%lidocaine and Kenalog into the knee once the fluid has been aspirated and sent off for appropriate studies. Since pyogenic arthritis is differential will obtain CBC, BMP, ESR and CRP. X-ray was ordered and will review prior to performing arthrocentesis. Patient been informed of risk benefits Lab Data Attestation: I reviewed the patient's lab results. Lab results narrative: White count is low. H&H is low. Platelet count is low. Patient has pancytopenia. Review of prior records indicates she has pancytopenia. Basic metabolic panel is unremarkable. Glucose slight elevated 136 with normal CO2 and a gap. C-reactive protein is elevated 84. ESR is normal. Synovial fluid reveals a elevated white count of 16,000. Predominantly neutrophils. Gram stain revealed 1+ white cells without bacteria. No crystals were seen. Findings are not consistent with septic joint. Will discharge patient. If cultures returned positive we will contact her. Labs: Laboratory Results - last 24 hr 07/30/25 07/30/25 13:42 14:18 WBC 4.1 L RBC 3.95 L Hgb 10.6 L Hct 34.9 L MCV 88.4 MCH 26.8 L MCHC 30.4 L RDW Std Deviation 47.1 H RDW Coeff of Pete 14.6 Plt Count 73 L MPV 11.6 Immature Gran % (Auto) 0.500 Neut % (Auto) 66.5 Lymph % (Auto) 19.8 [place] % (Auto) 8.6 Eos % (Auto) 3.9 Baso % (Auto) 0.7 Absolute Neuts (auto) 2.7 Absolute Lymphs (auto) 0.81 L Nucleated RBC % 0 ESR 29 Sodium 138 Potassium 4.4 Chloride 100 Carbon Dioxide 24.9 Anion Gap 13 BUN 11 Creatinine 0.60 L Estim Creat Clear Calc 62.87 Est GFR (MDRD) Non-Af 97 BUN/Creatinine Ratio 18.5 Glucose 136 H Calcium 9.8 C-React Prot Ext Range 84.40 H Fluid Crystals NO CRYSTALS SEEN Fluid Crystal Source SYNOVIAL Synovial Source LEFT KNEE Synovial Color Yellow Synovial Appearance Cloudy Synovial WBC 16.3220 H Synovial RBC 0.002 H Synovial Tot Cell Ct 16.4440 H Synov Polynuclear WBCs 13.126 Synov Mononuclear WBCs 3.196 Synovial Neutrophils 85 H Synovial Monocytes 15 Synovial Polynuclear % 80.4 Synovial Mononuclear % 19.[address] Comment May follow Radiography Chest X-Ray - ED: Read by ED Physician (4 view x-ray of the left knee was independent reviewed interpreted by me at 1329. Patient has some minimal arthritic changes. There is an effusion noted. The patella is in proper position. There is no other significant changes) Diagnostic Testing: Clinical Impression(s) from Imaging Studies Knee X-Ray 07/30/25 13:15 IMPRESSION: No acute osseous abnormalities. Small knee effusion. Reading [facility] Procedures Other Procedures Procedure(s): Arthrocentesis left knee: Patient was explained risk benefits. Consent was signed prior to procedure. She had 1 question that was answered to her satisfaction. Patient was prepped draped sterile manner. Lateral approach was undertaken. Skin was anesthetized 1% lidocaine. Approximately 35 cc of yellow cloudy fluid was aspirated. A 1-10 mixture of Kenalog and 1% lidocaine was infused into the left knee joint. Awaiting results of blood studies and synovial fluid studies. 1423 Discharge Plan Triage Chief Complaint: Lower Extremity Injury ED Provider: Sergey Brennan Dx/Rx/DC Orders Clinical Impression: Effusion of knee joint, left, Pancytopenia, Elevated blood pressure reading without diagnosis of hypertension, Type 2 diabetes mellitus with hyperglycemia, Cirrhosis, Esophageal varices Instructions: ED Fluid on the Knee Prescriptions: New oxycodone 5 mg capsule 5 mg PO Q8H PRN (Reason: pain) 2 Days Qty: 6 0RF No Action elderberry fruit 350 mg capsule 700 mg PO QDAY Immune Power 62.5 mg-15 mcg- 2.75 mg-50 mg tablet,chewable 2 tab PO QDAY levothyroxine 75 mcg tablet 75 mcg PO QDAY 30 Days Qty: 30 3RF ferrous sulfate 325 mg (65 mg iron) tablet 325 mg PO QDAY 30 Days Qty: 30 5RF ascorbic acid (vitamin C) 500 mg tablet,chewable 500 mg PO BID 30 Days Qty: 60 2RF pantoprazole 40 mg tablet,delayed release (DR/EC) 40 mg PO QDAY Trulicity 3 mg/0.5 mL pen injector 3 mg SUBCUT TH rizatriptan 10 MG tablet 10 mg PO PRN PRN (Reason: Migraine Headache) Rx Instructions: 1 tab at onset of headache, may repeat in 2 hours allopurinol 100 mg Tablet 100 mg PO DAILY metformin 1,000 mg tablet 1,000 mg PO BID gabapentin 400 mg Tablet 800 mg PO QHS Emgality Pen 120 mg/mL Pen Injector 120 mg SUBCUT QMONTH erythromycin 5 mg/gram (0.5 %) ointment 1 applic ophthalmic (eye) QHS Patient Comments: APPLY TO BOTH EYES NIGHTLY fluorometholone 0.1 % drops,suspension 1 drp ophthalmic (eye) BID Patient Comments: 1 drop into both eyes twice a day INSTILL 1 DROP INTO EACH EYE TWICE DAILY Hair,Skin and Nails Tablet 2 tab PO DAILY Acidophilus Capsule 10 mg PO DAILY cyclosporine [Restasis] 0.05 % dropperette 1 drp ophthalmic (eye) BID Patient Comments: INSTILL 1 DROP INTO EACH EYE TWICE DAILY tlgeemkcuwlg-Xb-pezi-minerals 18-0.4 mg Tablet 2 tab PO DAILY PreserVision AREDS-2 250-90-40-1 mg Capsule 1 tab PO BID ezetimibe 10 mg tablet 10 mg PO DAILY Patient Comments: TAKE 1 TABLET BY MOUTH ONCE DAILY magnesium 200 mg tablet 200 mg PO DAILY spironolactone 25 mg tablet 25 mg PO DAILY 30 Days Qty: 30 7RF Rx Instructions: Hold if serum potassium is more than 5.0. lactulose 10 gram/15 mL solution 15 ml PO BID 30 Days Qty: 3785 1RF Rx Instructions: Titrate the frequency to 1-3 times per day to have 1 BM per day Xifaxan 550 mg tablet 550 mg PO BID 30 Days Qty: 60 6RF carvedilol 6.25 mg tablet 6.25 mg PO BID 30 Days Qty: 60 6RF Rx Instructions: must administer with a meal/food Hold for heart less than 50 or systolic blood pressure less than 100 mmHg. Primary Care Provider: Taty Julian Referrals: Taty Julian MD [Primary Care Provider, Family Practice] - 3-5 Days if not improving Activity Restrictions/Additional Instructions: Return if you have a temperature greater than 100, shaking chills or pain is unbearable and unable to walk. Print Language: Omani Disposition Disposition: Home, Self Care What to do if you have Problems For any increased pain, shortness of breath, bleeding, nausea or vomiting, chestpain, or any unexpected problems, contact your Primary Care Provider. Call [facility] ([phone]) or report to the closest Emergency Room. Call 911 if necessary. 07/30/25 1753 <Electronically signed by Sergey rBennan MD> Cosigner Signature (if applicable): CC: Dr. Taty Julian MD ~ Signed [facility] Work Phone: [phone]) 117-126910-12-2025 Radiology Diagnostic study note [facility] Imaging Services [address] [place], [place] [id number] Knee 4 or More Views MR#: [id number] Acct: [id number] Name: KRISTA CAMPBELL Rep #: [id number] : 1955 F 70 From: Angel Duran MD PCP: Dr. Taty Julian MD Status: RI E ER Study:Knee 4 or More Views Date of Exam: 07/30/25 Exam# [id number] Ordering Dr: Ramirez Brennan MD PROCEDURE: KNEE 4 OR MORE VIEWS 07/30/2025 REASON FOR EXAM: INJURY/PAIN TECHNIQUE: Procedure Code: RADKN Modality: DX Procedure: KNEE 4 OR MORE VIEWS Laterality: Obliteration of the suprapatellar fossa consistent with knee effusion. COMPARISON: None. FINDINGS: Bones: No acute bony abnormalities. Joints: Unremarkable. Effusion: Unremarkable. Soft tissues: No soft tissue abnormalities. RAD/Knee 4 or More Views IMPRESSION: No acute osseous abnormalities. Small knee effusion. Reading Location[facility] CC: Dr. Taty Julian MD; Dr. Sergey Brennan MD ~ 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: Signed [facility]10-12-2025 NoteHNO ID: [id number] Author: JOB ORELLANA APRN.VISUAL BASIC DEVELOPER Service: ? Author Type: Nurse Practitioner Type: Progress Notes Filed: 07/30/2025 12:52 Note Text: URGENT CARE [facility] Krista Campbell is a 70 year old female. Patient presents with: Knee Pain: Left x 1 week HPI The patient is a 70-year-old female presenting with acute left knee pain. Left Knee Pain: - Onset: Approximately one week ago. - No known trauma or injury. - Describes pain as "sharp," like "somebody is poking an ice pick" on the medial aspect of the knee. - Initially started on a Thursday; significantly worsened by Thursday. - Has used a knee brace, alternating heat and ice, and topical creams including 4% lidocaine and Voltaren with no relief. - Reports significant swelling and warmth in the knee. - Unable to bend the knee, stating "physically cannot bend it." Review of Systems Musculoskeletal: (+) left knee pain, (+) left knee swelling, (+) left knee warmth, (+) decreased range of motion of left knee Objective BP 128/74 Pulse 84 Temp 36.6 ?C (97.8 ?F) (Tympanic) Resp 16 Wt 68.2 kg (150 lb 5.7 oz) LMP 01/31/2005 SpO2 99% BMI 30.11 kg/m? Physical Exam General: No acute distress. MSK/Ext: Left knee with significant swelling and warmth, unable to bend left knee; right knee cool to touch. { 1. Acute pain of left knee (M25.562) - Acute worsening of chronic left knee pain since Thursday, with significant increase in severity by Thursday; currently unable to bend the knee, with marked swelling and warmth on exam. - Differential includes septic arthritis; unable to rule out infection in the joint based on current presentation. - Advised immediate evaluation in the emergency department for further diagnostic workup, including imaging and laboratory studies to assess for possible septic joint. - Explained that inability to bend the joint, warmth, and swelling are concerning for a serious underlying issue; patient advised not to delay evaluation. - Patient expressed understanding and agreement with plan. and Recording using ambient [employer] software for draft documentation of the visit was discussed with the patient/authorized customer relations representative; all questions welcomed and answered. Patient/authorized customer relations representative agreed to proceed History and Record Review External record(s) reviewed: no prior records. Disposition The patient was [facility]. [facility] NoteFollow-up EMG left foot Patient is a pleasant 70-year-old female with continued bilateral foot tingling and burning. Wants make sure all went well for EMG. EMG results: No proximal contraction present all of her back or thigh. Physical Vascular: DP PT pulses are easily palp 2-4. CFT is fair no edema. Derm: No erythema no open wounds no ulcers noted nodules. Neuro: Generally intact some blunting around the incision site Musculoskeletal knee 0 toes any clicking or catching. Ankle subtalar is full and pain-free. Assessment and plan Patient is a pleasant 70-year-old female with lateral hardware pain and some mononeuritis to the sural laterally. - At this time, I did go over options for hardware removal is likely best option at reducing her general pain and she like to give this some thought there is no urgency is entirely up to her calendar therefore can follow-up as needed while she is atypical cardiopulmonary the left foot. [place] [employer]. AUTHENTICATED BY BILL KULKARNI JR., ON 07/12/2025 13:50:52[facility]09-24-2025 History of Present illness Narrative* Bill Kulkarni Jr., DP - 07/12/2025 1:47 PM EDT Follow-up EMG left foot Patient is a pleasant 70-year-old female with continued bilateral foot tingling and burning. Wants make sure all went well for EMG. EMG results: No proximal contraction present all of her back or thigh. Physical Vascular: DP PT pulses are easily palp 2-4. CFT is fair no edema. Derm: No erythema no open wounds no ulcers noted nodules. Neuro: Generally intact some blunting around the incision site Musculoskeletal knee 0 toes any clicking or catching. Ankle subtalar is full and pain-free. Assessment and plan Patient is a pleasant 70-year-old female with lateral hardware pain and some mononeuritis to the sural laterally. - At this time, I did go over options for hardware removal is likely best option at reducing her general pain and she like to give this some thought there is no urgency is entirely up to her calendartherefore can follow-up as needed while she is atypical cardiopulmonary the left foot. [place] hardware. documented in this [id number] [facility] N[facility]duction & EMG Report Full Name: Krista Campbell Date of : 1955 Visit Date: 06/28/2025 7:43 AM Age: 69 Years Examining MD: Collin Carlson MD Referring Physician: Bill Kulkarni Jr., DPM Temperature: 36.6 Height: 4 feet 11 inch Referred for: EMG:LLE numbness for a year. No LBP. + DM. Plan: The study was design to evaluate for entrapment neuropathy, polyneuropathy, radiculopathy, or plexopathy. Procedure indication, risk, complications, side effects and alternatives were explained. Verbal consent was obtained and patient agreed to proceed.. Patient was instructed to clean the puncture site with soap and water and put some ice pack for bruising. Impression: There is NO clear electrodiagnostic evidence of a left lumbosacral radiculopathy, plexopathy, or diffuse sensorimotor polyneuropathy at this time. EMG Summary: The left peroneal and tibial motor nerve conduction studies were normal. The left sural and superficial peroneal sensory nerve conduction studies were also normal. The left H reflex was normal. The left medial and lateral plantar sensory nerve conduction studies were normal. Needle EMG of the muscle tested showed no abnormal spontaneous activity. Normal motor unit action potentials and recruitment patterns were seen. Collin Carlson MD Diplomate, ABPN, NBPAS Clinical Neurophysiology, Neurology, Vascular Neurology and Sleep Medicine [facility] [place] [phone] Motor NCS Nerve / Sites Muscle Latency Amplitude Distance Velocity ms mV cm m/s L Deep peroneal (Fibular) - EDB Ankle EDB 4.50 4.1 8.5 Fib Head EDB 10.94 3.7 28.5 44.3 Knee EDB 12.02 3.7 7 64.6 L Tibial - AH Ankle AH 4.08 9.1 8 Knee AH 12.52 7.4 36 42.7 Sensory NCS Nerve / Sites Peak Amp Amp.2-3 Distance Velocity d Lat.2 ms V V cm m/s ms L Sural - Lat Mall Calf 3.75 10.4 0.08 14 46 L Superficial peroneal - Ankle Lat leg 3.50 7.5 1.1 14 50 L Medial plantar, Lateral plantar - Ankle (Medial, lateral sole) Medial plantar Sole 3.06 5.4 1.8 12 57 Lateral plantar Sole 3.23 7.5 2.1 14 62 Medial plantar Sole - Lateral plantar Sole -0.17 H Reflex Nerve H Lat ms L Tibial - Soleus 32.14 EMG Summary Table Spontaneous Activity Amplitude Duration Recruitment Polyphasia Activation Comment Muscle Ins Act Fib PSW Fasc - - - - - - L. Vastus lateralis Normal 0 0 0 Normal Normal Normal Normal Normal Normal L. Semitendinosus Normal 0 0 0 Normal Normal Normal Normal Normal Normal L. Tibialis anterior Normal 0 0 0 Normal Normal Normal Normal Normal Normal L. Gastrocnemius (Medial head) Normal 0 0 0 Normal Normal Normal Normal Normal Normal L. Abductor hallucis Normal 0 0 0 Normal Normal Normal Normal Normal Normal L. Lumbar paraspinals Normal 0 0 0 Normal Normal Normal Normal Normal Normal NORMAL VALUES FOR NERVE CONDUCTION STUDIES MOTOR Location of Recording Distance (cm) Distal Latency (msec) Amplitude (mV) CV (m/sec) Median APB 7 <4.5 >4.0 >48 Ulnar ADM 6.5 <3.6 >6.0 >51 Radial EDC - <3.1 - >67 Peroneal EDB 8.5 <6.6 >2.0 >41 Peroneal TA 10 <6.8 >5.1 >43 Tibial AH 8 <6.1 >4.0 >40 SENSORY Location of Recording Distance (cm) Distal Latency (msec) Amplitude (?V) CV (m/sec) Median Anti Digit 2 13 <3.6 >15 >56 Ulnar Anti Digit 5 11 <3.1 >10 >54 Radial Anti Snuff 10 <2.9 >15 >49 Median Palm Median Wrist 8 <2.3 >50 >56 Ulnar Palm Ulnar Wrist 8 <2.3 >15 >55 Median Ortho Median Wrist 13 <3.6 >10 - Ulnar Ortho Ulnar Wrist 11 <3.1 >0 - Sural L Malleolus 14 <4.5 >6 (<60yo) >40 Sup. Peroneal Ankle 14 <4.1 >0 - Med Plantar M Malleolus 12-14 <4.0 >7 (<55yo) - Lat Plantar M Malleolus - <4.6 >3 (<55yo) - Source of normal values: [facility] EMG Date/Time: 06/28/2025 7:53 AM Performed by: Collin Carlson MD Authorized by: Collin Carlson MD Verbal consent: obtained Consent given by: patient Time out: Immediately prior to procedure a "time out" was called to verify the correct patient, procedure, equipment, product support specialist and site/side marked as required. Patient tolerance: Patient tolerated the procedure well with no immediate complications AUTHENTICATED BY COLLIN CARLSON, ON 06/28/2025 07:54:31[facility] 06-28-2025 History of Present illness Narrative* Collin Carlson MD - 06/28/2025 7:53 AM EDTAssociated Order(s): EMG Post-Procedure Diagnose(s): Numbness Images from the original note were not included. [facility] Nerve Conduction & EMG Report Full Name: Krista Campbell Date of : 1955 Visit Date: 06/28/2025 7:43 AM Age: 69 Years Examining MD: Collin Carlson MD Referring Physician: Bill Kulkarni Jr. [facility] Temperature: 36.6 Height: 4 feet 11 inch Referred for: EMG:LLE numbness for a year. No LBP. + DM. Plan: The study was design to evaluate for entrapment neuropathy, polyneuropathy, radiculopathy, orplexopathy. Procedure indication, risk, complications, side effects and alternatives were explained. Verbal consent was obtained and patient agreed to proceed.. Patient was instructed to clean the pun cture site with soap and water and put some ice pack for bruising. Impression: There is NO clear electrodiagnostic evidence of a left lumbosacral radiculopathy, plexopathy, or diffuse sensorimotor polyneuropathy at this time. EMG Summary: The left peroneal and tibial motor nerve conduction studies were normal. The left sural and superficial peroneal sensory nerve conduction studies were also normal. The left H reflex was normal. The left medial and lateral plantar sensory nerve conduction studies were normal. Needle EMG of the muscle tested showed no abnormal spontaneous activity. Normal motor unit action potentials and recruitment patterns were seen. Collin Carlson MD Diplomate, ABPN, NBPAS Clinical Neurophysiology, Neurology, Vascular Neurology and Sleep Medicine [facility] [place] [phone] Motor NCS Nerve / Sites Muscle Latency Amplitude Distance Velocity ms mV cm m/s L Deep peroneal (Fibular) - EDB Ankle EDB 4.50 4.1 8.5 Fib Head EDB 10.94 3.7 28.5 44.3 Knee EDB 12.02 3.7 7 64.6 L Tibial - AH Ankle AH 4.08 9.1 8 Knee AH 12.52 7.4 36 42.7 Sensory NCS Nerve / Sites Peak Amp Amp.2-3 Distance Velocity d Lat.2 ms V V cm m/s ms L Sural - Lat Mall Calf 3.75 10.4 0.08 14 46 L Superficial peroneal - Ankle Lat leg 3.50 7.5 1.1 14 50 L Medial plantar, Lateral plantar - Ankle (Medial, lateral sole) Medial plantar Sole 3.06 5.4 1.8 12 57 Lateral plantar Sole 3.23 7.5 2.1 14 62 Medial plantar Sole - Lateral plantar Sole -0.17 H Reflex Nerve H Lat ms L Tibial - Soleus 32.14 EMG Summary Table Spontaneous Activity Amplitude Duration Recruitment Polyphasia Activation Comment Muscle Ins Act Fib PSW Fasc - - - - - - L. Vastus lateralis Normal 0 0 0 Normal Normal Normal Normal Normal Normal L. Semitendinosus Normal 0 0 0 Normal Normal Normal Normal Normal Normal L. Tibialis anterior Normal 0 0 0 Normal Normal Normal Normal Normal Normal L. Gastrocnemius (Medial head) Normal 0 0 0 Normal Normal Normal Normal Normal Normal L. Abductor hallucis Normal 0 0 0 Normal Normal Normal Normal Normal Normal L. Lumbar paraspinals Normal 0 0 0 Normal Normal Normal Normal Normal Normal NORMAL VALUES FOR NERVE CONDUCTION STUDIES MOTOR Location of Recording Distance (cm) Distal Latency (msec) Amplitude (mV) CV (m/sec) Median APB 7 <4.5 >4.0 >48 Ulnar ADM 6.5 <3.6 >6.0 >51 Radial EDC - <3.1 - >67 Peroneal EDB 8.5 <6.6 >2.0 >41 Peroneal TA 10 <6.8 >5.1 >43 Tibial AH 8 <6.1 >4.0 >40 SENSORY Location of Recording Distance (cm) Distal Latency (msec) Amplitude (?V) CV (m/sec) Median Anti Digit 2 13 <3.6 >15 >56 Ulnar Anti Digit 5 11 <3.1 >10 >54 Radial Anti Snuff 10 <2.9 >15 >49 Median Palm Median Wrist 8 <2.3 >50 >56 Ulnar Palm Ulnar Wrist 8 <2.3 >15 >55 Median Ortho Median Wrist 13 <3.6 >10 - Ulnar Ortho Ulnar Wrist 11 <3.1 >0 - Sural L Malleolus 14 <4.5 >6 (<60yo) >40 Sup. Peroneal Ankle 14 <4.1 >0 - Med Plantar M Malleolus 12-14 <4.0 >7 (<55yo) - Lat Plantar M Malleolus - <4.6 >3 (<55yo) - Source of normal values: [facility] EMG Date/Time: 06/28/2025 7:53 AM Performed by: Collin Carlson MD Authorized by: Collin Carlson MD Verbal consent: obtained Consent given by: patient Time out: Immediately prior to procedure a "time out" was called to verify the correct patient, procedure, equipment, product support specialist and site/side marked as required. Patient tolerance: Patient tolerated the procedure well with no immediate complications documented in this [id number] History of Present illness Narrative* David Smith Mammo Tech - 06/20/2025 12:50 PM EDT Radiology Service Progress Note PATIENT NAME: Krista Campbell DATE OF SERVICE: June 20, 2025 TIME: 1:29 PM PATIENT IDENTITY VERIFICATION COMPLETED USING TWO (2) IDENTIFIERS: Name and Date of confirmedby patient verbally. FALL SCREENING: Has the patient had 2 falls in the last year or 1 fall with injury or currently using an Ambulatory Assistive Device (Walker, Cane, Wheelchair, Crutches, etc.)? No PATIENT GENDER DATA: Assigned female at . status: : No status:NO. PATIENT RELEVANT IMPLANT DATA REVIEWED: Not Applicable PATIENT PRESENTS WITH AN IMPLANTABLE OR ATTACHED MANAGER IN TRAINING: No RADIOLOGY DEPARTMENT: Mammography PERIPHERAL IV DATA: Not applicable SIGNED BY: Renetta Cary June 20, 2025 1:29 PM [facility] NoteHNO ID: [id number] Author: DAVID SMITH Mammo Tech Service: ? Author Type: Technologist Type: Progress Notes Filed: 06/20/2025 13:29 Note Text: Radiology Service Progress Note PATIENT NAME: Krista Campbell DATE OF SERVICE: June 20, 2025 TIME: 1:29 PM PATIENT IDENTITY VERIFICATION COMPLETED USING TWO (2) IDENTIFIERS: Name and Date of confirmed by patient verbally. FALL SCREENING: Has the patient had 2 falls in the last year or 1 fall with injury or currently using an Ambulatory Assistive Device (Walker, Cane, Wheelchair, Crutches, etc.)? No PATIENT GENDER DATA: Assigned female at . status: : No status: NO. PATIENT RELEVANT IMPLANT DATA REVIEWED: Not Applicable PATIENT PRESENTS WITH AN IMPLANTABLE OR ATTACHED MANAGER IN TRAINING: No RADIOLOGY DEPARTMENT: Mammography PERIPHERAL IV DATA: Not applicable SIGNED BY: Renetta Cary June 20, 2025 1:29 [facility]08-20-2025 NoteHPI Chief Complaint Patient presents with Follow-up 1 yr f/u gout. Pt would like L ft checked for neuropathy. Last A1c 6.1 in 03/02/25 Patient is a pleasant 69-year-old female who comes in today to follow-up on her a gout exam. States that she is only getting about 2 episodes a year of acute gout which she is pleased with taking her allopurinol compliantly without any ill effect or issues. Separately today complains of left foot numbness only and wonders if this is from her diabetes or surgery. She states that prior to surgery she really never had any tingling but now has tingling constantly for the last year over her fifth metatarsal base. No loss of power though can easily. 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 Cirrhosis (HCC) Cirrhosis of liver (HCC) Diabetes (HCC) Diabetes mellitus, type 2 (HCC) Ear problem Eye problem GERD (gastroesophageal reflux disease) Headache Hypothyroidism Left foot pain Macular degeneration Metatarsal fracture Plantar fasciitis, left Right foot pain Swelling Thyroid condition Wears dentures top set Past Surgical History: Procedure Laterality Date CATARACT EXTRACTION, BILATERAL lens implants SECTION INJECTION FOOT Bilateral 06/27/2022 Procedure: bilateral feet steroid injections under anesthesia, CORTISONE INJECTION LEFT AND RIGHT FOOT; Surgeon: ALBERTO Lim DPM; Location: Main OR; Service: Podiatry OPEN REDUCTION INTERNAL FIXATION FOOT Left 06/27/2022 Procedure: Open reduction internal fixation left fifth metatarsal, 0.62 K wires, [place] fifth metatarsal hook plate. [place] mini frag, power, big C,bilateral feet steroid injections under anesthesia; Surgeon: ALBERTO Lim DPM; Location: Main OR; Service: Podiatry TONSILLECTOMY Social History[1] Review of Systems Physical Exam Labs reviewed November and February uric acid of 5.3. Additionally her last hemoglobin A1c 6.1% and generally been in this range for 5 years. Vascular DP PT pulses are easily palpable 2-4. CFT is fair no edema. Derm: No erythema no open wounds no ulcers no rashes no deep nodules. Neuro: Light touch is normal generally however she does have blunting surrounding the fifth metatarsal base and fifth toe. Negative Kristen sign left foot. Musculoskeletal: Muscle strength is 5/5 fair tone. Can easily wiggle toes any clicking or catching. Ankle subtalar full pain-free. 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 Regarding her gout in light of her last uric acid both November and February of 5.3, we will continue her dosing at 100 mg daily for 1 year. Can dispense 90 tabs with 3 refills called into [facility]. 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 Pending positive can remove hardware. Follow-up in 2 to 3 weeks to review nerve conduction velocity study left foot. Moderate medical complexity decision making based on treating multiple chronic issues simultaneously. [1] Social History Socioeconomic History Marital status: Tobacco Use Smoking status: Former Smokeless tobacco: Never Vaping Use Vaping status: Never Used Substance and Sexual Activity Alcohol use: Not Currently Comment: rare Drug use: Never Social Drivers of Health Financial Resource Strain: Low Risk (05/31/2024) [facility] Overall Financial Resource Strain (CARDIA) Difficulty of Paying Living Expenses: Not hard at all Food Insecurity: No Food Insecurity (05/31/2024) [facility] Hunger Vital Sign Worried About Running Out of Food in the Last Year: Never true Ran Out of Food in the Last Year: Never true Transportation Needs: No Transportation Needs (05/31/2024) [facility] PRAPARE - Transportation Lack of Transportation (Medical): No Lack of Transportation (Non-Medical): No Physical Activity: Inactive (05/31/2024) [facility] Exercise Vital Sign Days of Exercise per Week: 3 days Minutes of Exercise per Session: 0 min Stress: No Stress Concern Present (05/31/2024) [facility] [employer] [place] [facility] - Occupational Stress Questionnaire Feeling of Stress : Not at all Social Co (more content not included)...[facility]08-20-2025 History of Present illness Narrative* Blil Kulkarni Jr., DPM - 06/07/2025 8:29 AM EDT HPI Chief Complaint Patient presents with Follow-up 1 yr f/u gout. Pt would like L ft checked for neuropathy. Last A1c 6.1 in 03/02/25 Patient is a pleasant 69-year-old female who comes in today to follow-up on her a gout exam. Statesthat she is only getting about 2 episodes a year of acute gout which she is pleased with taking herallopurinol compliantly without any ill effect or issues. Separately today complains of left foot numbness only and wonders if this is from her diabetes or surgery. She states that prior to surgery she really never had any tingling but now has tingling constantly for the last year over her fifth metatarsal base. No loss of power though can easily. 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 Cirrhosis (HCC) Cirrhosis of liver (HCC) Diabetes (HCC) Diabetes mellitus, type 2 (HCC) Ear problem Eye problem GERD (gastroesophageal reflux disease) Headache Hypothyroidism Left foot pain Macular degeneration Metatarsal fracture Plantar fasciitis, left Right foot pain Swelling Thyroid condition Wears dentures top set Past Surgical History: Procedure Laterality Date CATARACT EXTRACTION, BILATERAL lens implants SECTION INJECTION FOOT Bilateral 06/27/2022 Procedure: bilateral feet steroid injections under anesthesia, CORTISONE INJECTION LEFT AND RIGHT FOOT; Surgeon: ALBERTO Lim DPM; Location: Main OR; Service: Podiatry OPEN REDUCTION INTERNAL FIXATION FOOT Left 06/27/2022 Procedure: Open reduction internal fixation left fifth metatarsal, 0.62 K wires, [place] fifth metatarsal hook plate. Lenny mini frag, power, big C,bilateral feet steroid injections under anesthesia; Surgeon: ALBERTO Lim DPM; Location: Main OR; Service: Podiatry TONSILLECTOMY Social History[1] Review of Systems Physical Exam Labs reviewed November and February uric acid of 5.3. Additionally her last hemoglobin A1c 6.1% and generally been in this range for 5 years. Vascular DP PT pulses are easily palpable 2-4. CFT is fair no edema. Derm: No erythema no open wounds no ulcers no rashes no deep nodules. Neuro: Light touch is normal generally however she does have blunting surrounding the fifth metatarsal base and fifth toe. Negative Kristen sign left foot. Musculoskeletal: Muscle strength is 5/5 fair tone. Can easily wiggle toes any clicking or catching.Ankle subtalar full pain-free. 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 Regarding her gout in light of her last uric acid both November and February of 5.3, we will continue her dosing at 100 mg daily for 1 year. Can dispense 90 tabs with 3 refills called into [facility]. 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 Pending positive can remove hardware. Follow-up in 2 to 3 weeks to review nerve conduction velocitystudy left foot. Moderate medical complexity decision making based on treating multiple chronic issues simultaneously. [1] Social History Socioeconomic History Marital status: Tobacco Use Smoking status: Former Smokeless tobacco: Never Vaping Use Vaping status: Never Used Substance and Sexual Activity Alcohol use: Not Currently Comment: rare Drug use: Never Social Drivers of Health Financial Resource Strain: Low Risk (05/31/2024) [facility] Overall Financial Resource Strain (CARDIA) Difficulty of Paying Living Expenses: Not hard at all Food Insecurity: No Food Insecurity (05/31/2024) [facility] Hunger Vital Sign Worried About Running Out of Food in the Last Year: Never true Ran Out of Food in the Last Year: Never true Transportation Needs: No Transportation Needs (05/31/2024) [facility] PRAPARE - Transportation Lack of Transportation (Medical): No Lack of Transportation (Non-Medical): No Physical Activity: Inactive (05/31/2024) [facility] Exercise Vital Sign Days of Exercise per Week: 3 days Minutes of Exercise per Session: 0 min Stress: No Stress Concern Present (05/31/2024) [facility] [employer] [place] [facility] [employer] [facility] - Occupational Stress Questionnaire Feeling of Stress : Not at all Social Connections: Moderately Isolated (05/31/2024) Re[facility] Social Connection and Isolation Panel [NHANES] Frequency of Communication with Friends and Family: More than three times a week Frequency of Social Gatherings with Friends and Family: More than three times a week Attends Mosque Services: Never Active Member of Clubs or Organizations: No Attends Club or Organization Meetings: Never Marital Status: documented in this [id number] Telephone encounter Note* Telephone Encounter - Diana Mcghee LPN - 05/15/2025 1:48 PM EDT Images from the original note were not included. Electronic PA rec'd and completed for trulicity. This was approved. Approved Prior authorization approved Payer: [employer] PBM Part D [id number] Note from payer: This medication or product was previously approved on [place]- [id number] from 2024-12-09 to 2025-10-18. Please note: This request was submitted electronically. Formulary lowering, tieringexception, cost reduction and/or pre-benefit determination review (including prospective Medicare hospice reviews) requests cannot be requested using this method of submission. Providers contact us at for further assistance. - Prescriber details have been updated to match the prescriber directory. Electronic appeal: Not supported View History Medication Being Authorized dulaglutide (TRULICITY) 3 mg/0.5 mL pen injector Inject 3 mg subcutaneously one time a week. Dispense: 6 mL Refills: 3 Start: 05/15/2025 Class: Normal Diagnoses: Type 2 diabetes mellitus without complication, without long-term current use of insulin (HCC) This order has been released to its destination. To be filled at: [id number] - [place] [address] [address] [facility] [phone] [facility] Miscellaneous Notes* Telephone Encounter - Diana Mcghee LPN - 05/15/2025 1:48 PM EDT Images from the original note were not included. Electronic PA rec'd and completed for trulicity. This was approved. Approved Prior authorization approved Payer: [employer] PBM Part D [id number] Note from payer: This medication or product was previously approved on PA- [id number] from 2024-12-09 to 2025-10-18. Please note: This request was submitted electronically. Formulary lowering, tieringexception, cost reduction and/or pre-benefit determination review (including prospective Medicare hospice reviews) requests cannot be requested using this method of submission. Providers contact us at for further assistance. - Prescriber details have been updated to match the prescriber directory. Electronic appeal: Not supported View History Medication Being Authorized dulaglutide (TRULICITY) 3 mg/0.5 mL pen injector Inject 3 mg subcutaneously one time a week. Dispense: 6 mL Refills: 3 Start: 05/15/2025 Class: Normal Diagnoses: Type 2 diabetes mellitus without complication, without long-term current use of insulin (HCC) This order has been released to its destination. To be filled at: [id number] [place] [address] [address] [phone] [facility] Telephone encounter Note * Telephone Encounter - Vivien Sharma MA - 05/15/2025 1:38 PM EDT Pt notified. Vivien Sharma MA [facility]07-28-2025 Miscellaneous Notes* Telephone Encounter - Vivien Sharma MA - 05/15/2025 1:38 PM EDT Pt notified. Vivien Sharma MA * Telephone Encounter - Isrrael Bruner APRN.CNP - 05/15/2025 1:36 PM EDT Her Hgb A1c was well controlled at last visit. We can decrease her dose to 3 mg weekly. The following approved medication requests have been transmitted electronically. Requested Prescriptions Signed Prescriptions Disp Refills dulaglutide (TRULICITY) 3 mg/0.5 mL pen injector 6 mL 3 Sig: Inject 3 mg subcutaneously one time a week. Authorizing Provider: ISRRAEL BRUNER APRN.CNP * Telephone Encounter - Heavenly Sunshine LPN - 05/15/2025 1:19 PM EDT Pt calls to report that her "liver dr" (Dr. Worrell) wants pcp to reduce Trulicity 4.5 mg to 3.5 mg. Pt's last OV: 03/10/25 with pcp. Last labs: 04/18/25 Heavenly Sunshine LPN documented [facility] Telephone encounter Note * Telephone Encounter - Isrrael Bruner APRN.CNP - 05/15/2025 1:36 PM EDT Her Hgb A1c was well controlled at last visit. We can decrease her dose to 3 mg weekly. The following approved medication requests have been transmitted electronically. Requested Prescriptions Signed Prescriptions Disp Refills dulaglutide (TRULICITY) 3 mg/0.5 mL pen injector 6 mL 3 Sig: Inject 3 mg subcutaneously one time a week. Authorizing Provider: ISRRAEL BRUNER APRN.CNP [facility]07-28[facility]25 Telephone encounter Note* Telephone Encounter - Heavenly Sunshine LPN - 05/15/2025 1:19 PM EDT Pt calls to report that her "liver dr" (Dr. Worrell) wants pcp to reduce Trulicity 4.5 mg to 3.5 mg. Pt's last OV: 03/10/25 with pcp. Last labs: 04/18/25 Heavenly Sunshine LPN [facility]07-[facility]25 Radiology Diagnostic study note [facility] Imaging Services [address] [place] [address] ABD Limited w/ Elastography MR#: [id number] Acct: [id number] Name: KRISTA CAMPBELL Rep #: [id number] : 1955 F 69 From: Sami Glez MD PCP: Dr. Taty Julian MD Status: RE G CLI Study:ABD Limited w/ Elastography Date of Exa m: 05/03/25 Exam# [id number] Ordering Dr: Demetrius Worrell MD PROCEDURE: ABD LIMITED W/ ELASTOGRAPHY REASON FOR EXAM: RUQ PAIN Six-month history. COMPARISON: None. TECHNIQUE: Right upper quadrant abdominal ultrasound. Yesenia ElastQ Imaging shear wave elastography for non-invasive assessment of liver tissue stiffness. Yesenia EPIQ Elite. FINDINGS: LIVER: Size: Unremarkable Length: 16.6 cm Echotexture: Diffusely echogenic suggesting fatty infiltration Contour: Normal Lesions: None identified Elastography: EQI Med: 14.8 kPa EQI Med Rohith: 2.21 m/s IQR/Med: 16 %* GALLBLADDER: No stones sludge wall thickening or tenderness. COMMON BILE DUCT: Normal 4.5 mm. PANCREAS: Normal Visualized portions of the right kidney are unremarkable. No right upper quadrant ascites. US/ABD Limited w/ Elastography IMPRESSION: SEVERE HEPATIC FIBROSIS / CIRRHOSIS Fatty infiltration of the liver. Reference Values: SRU <1.37 m/s (5.7kPa): No to mild fibrosis 1.37 m/s - 2.2 m/s: Moderate to severe fibrosis >2.2 m/s (15kPa): Significant fibrosis / cirrhosis METAVIR Score F2 or higher: 1.34 m/s (5.7kPa) F3 or higher: 1.55 m/s (7.3kPa) F4: 1.80 m/s (10kPa) * If the IQR/Med is >30%, the variance in the measurements is a large and the accuracy of the measurement may be in question. Reading Location: [place] [address] CC: Dr. Taty Julian MD; Dr. Tima Worrell MD ~ 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: Signed [facility]07-07-2025 Evaluation note* Diagnosis Onset Date Resolution Status Admit Date RUQ abdominal tenderness acute April 24, 2025 9:31am Thrombocytopenia acute April 9:31am Cirrhosis chronic April 24, 2025 9:31am Esophageal varices chronic April 242024 9:31am Gastroparesis chronic April 24, 025 9:31am [facility] Work Phone: 1(152) 379-865306-30-2025 NoteHNO ID: [id number] Author: ABISAI PERALTA MD Service: ? 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 Encounter Diagnosis ICD-10-CM 1. Adnexal fullness N94.9 Please see report under imaging tab. 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 Encounter Diagnosis ICD-10-CM 1. Adnexal fullness N94.9 Please see report under imaging tab. Abisai Peralta MD April 17, 2025 10:36 PM documented in this encounterMem[facility] Hospital06-[facility] Telephone encounter Note * Telephone Encounter - Taty Julian MD - 04/17/2025 2:56 PM EDT OK to refill as ordered Taty Julian MD [facility]06-30-2025 Miscellaneous Notes* Telephone Encounter - Taty Julian MD - 04/17/2025 2:56 PM EDT OK to refill as ordered Taty Julian MD * Telephone Encounter - Mary Sutherland - 04/17/2025 2:22 PM EDT Prescription Refill Information The patient has been identified by name and date of : Yes Caregiver verified no other encounters exist for this prescription request: Yes Caregiver confirmed with patient/requestor that no other refills are due, in the near future, with this provider at this time: Yes The last office visit in the department: 03-10-25 Does the patient have a future office visit with this provider/department: Yes Requested Prescriptions Pending Prescriptions Disp Refills levothyroxine (SYNTHROID) 75 mcg tablet 90 tablet 3 Sig: Take 1 tablet by mouth once daily. Mary Sutherland April 17, 2025 2:24 PM documented in [facility] encounterMem[facility]25 Telephone encounter Note * Telephone Encounter - Mary Stuherland - 04/17/2025 2:22 PM EDT Prescription Refill Information The patient has been identified by name and date of : Yes Caregiver verified no other encounters exist for this prescription request: Yes Caregiver confirmed with patient/requestor that no other refills are due, in the near future, with this provider at this time: Yes The last office visit in the department: 03-10-25 Does the patient have a future office visit with this provider/department: Yes Requested Prescriptions Pending Prescriptions Disp Refills levothyroxine (SYNTHROID) 75 mcg tablet 90 tablet 3 Sig: Take 1 tablet by mouth once daily. Mary Sutherland April 17, 2025 2:24 PM [facility] NoteHNO ID: [id number] Author: REGAN NOLAND MD Service: ? Author Type: Physician Type: Progress Notes Filed: 04/10/2025 09:13 Note Text: Social Insurance Adviser offered: Patient accepts, visit chaperoned by Jett Kirkpatrick LPNAntione Velasco is a 69 year old who presents for an annual gynecologic exam without complaints and noting idiopathic cirrhosis of the liver/stage IV liver disease Postmenopausal: Yes HRT use: No. 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 History Comments: Sexual Activity: Not Currently; Male Contraception: Tubal Ligation PAST MEDICAL HISTORY Diagnosis Date Arthritis in Hands Cervical disc disease Diabetes (HCC) Gout Macular degeneration Other forms of migraine Personal history of colonic polyps Snoring does not use C-pap Thyroid disease PAST SURGICAL HISTORY Procedure Laterality Date ABDOMINAL SURGERY HX DELIVERY ONLY , low cervical COLONOSCOPY 07/11/2022 repeat in 5 years COLONOSCOPY FLX DX W/COLLJ SPEC WHEN PFRMD 01/09/2010 Colonoscopy COLONOSCOPY FLX DX W/COLLJ SPEC WHEN PFRMD 01/15/2011 COLONOSCOPY FLX DX W/COLLJ SPEC WHEN PFRMD 03/27/2016 Colonoscopy COLONOSCOPY FLX DX W/COLLJ SPEC WHEN PFRMD 06/08/2017 Colonoscopy DILATION AND CURETTAGE DXAND/THER NONOBSTETRIC Dilation AND curettage EGD W/O [facility] SPEC VARICIES INJ N/A 01/20/2023 [facility] EGD W/O [facility] SPEC VARICIES INJ N/A 04/08/2023 [facility] EGD W/O [facility] SPEC VARICIES INJ N/A 11/09/2024 [facility] ESOPHAGOGASTRODUODENOSCOPY TRANSORAL DIAGNOSTIC 01/2004 EGD ESOPHAGOGASTRODUODENOSCOPY TRANSORAL DIAGNOSTIC 03/29/2018 EGD FRACTURE SURGERY LIG/TRNSXJ FLP TUBE ABDL/VAG APPR UNI/BI PAST SURGICAL HISTORY OF Left 07/07/2022 Left foot surgery with plates and screws placed STEREOTACTIC CORE BIOPSY 07/13/2007 LEFT BREAST- benign TONSILLECTOMY HX TONSILLECTOMY PRIMARY/SECONDARY FAMILY HISTORY Problem Relation Age of Onset Diabetes Mother Hypertension Mother Hypertension Father Diabetes Father SOCIAL HISTORY Social History Tobacco Use Smoking status: Former Current packs/day: 0.00 Average packs/day: 0.3 packs/day for 3.0 years (0.8 ttl pk-yrs) Types: Cigarettes Start date: 06/08/1972 Quit date: 06/08/1975 Years since quittin.8 Smokeless tobacco: Never Vaping Use Vaping status: Never Used Substance Use Topics Alcohol use: Yes Comment: rare, once a year Drug use: No REVIEW OF SYSTEMS Abdomen: No abdominal pain, nausea, vomiting, diarrhea, or constipation. No bloating, early satiety, indigestion, or increased flatulence. Bladder: No dysuria, gross hematuria, urinary frequency, urinary urgency, or incontinence Breast: No breast lumps, nipple d/c, overlying skin changes, redness or skin retraction Allergies and current medication updated:Yes SENSITIVE EXAM: The sensitive examination was discussed with the Patient or Patient's Authorized News Camera Operator. As applicable, any other physician, advance practice provider, medical student, or other health professional student that will be observing or involved in the sensitive examination for educational or training purposes was discussed with the Patient or Authorized News Camera Operator. The Patient or Authorized News Camera Operator has agreed to proceed with the sensitive examination. (Sensitive examination includes inspection and/or palpation of the breasts, pelvis, prostate and anorectal regions). EXAM: BP 108/68 Ht 4' 11.252" (1.51m) Wt 150 lb (68.0kg) LMP 01/31/2005 BMI 30.04 kg/(m2). GENERAL: pleasant, female in no apparent distress HEENT: Normocephalic, atraumatic, mucus membranes moist, and no lesions NECK: Supple, full range of motion, no adenopathy, and thyroid normal DERMATOLOGY: Normal, without lesions, non-icteric, and non-hirsute BREAST: soft, non-tender, symmetric, no dominant mass, normal nipple-areolar complex, no lymphadenopathy, and no nipple discharge CHEST: Normal inspiratory effort ABDOMEN: soft, rebound Absent, and tender RUQ w fullnes PELVIC: external genitalia normal, normal Bartholin's glands, urethra, Seven Oaks's glands, no vulvar lesions, no cervical lesions, good vaginal support, physiologic discharge present, normal appearing perineal body and perianal region BIMANUAL: uterus normal size, shape and consistency, no adnexal masses, non-tender, and noting R adnexal fullness RECTOVAGINAL: deferred. NEURO: alert and oriented x3,exam grossly non- (more content not included)... [facility]06-23-2025 History of Present illness Narrative* Regan Noland MD - 04/10/2025 8:10 AM EDT Social Insurance Adviser offered: Patient accepts, visit chaperoned by Jett Kirkpatrick LPN. Krista is a 69 year old who presents for an annual gynecologic exam without complaints and noting idiopathic cirrhosis of the liver/stage IV liver disease Postmenopausal: Yes HRT use: No. 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 History Comments: Sexual Activity: Not Currently; Male Contraception: Tubal Ligation PAST MEDICAL HISTORY Diagnosis Date Arthritis in Hands Cervical disc disease Diabetes (HCC) Gout Macular degeneration Other forms of migraine Personal history of colonic polyps Snoring does not use C-pap Thyroid disease PAST SURGICAL HISTORY Procedure Laterality Date ABDOMINAL SURGERY HX DELIVERY ONLY , low cervical COLONOSCOPY 07/11/2022 repeat in 5 years COLONOSCOPY FLX DX W/COLLJ SPEC WHEN PFRMD 01/09/2010 Colonoscopy COLONOSCOPY FLX DX W/COLLJ SPEC WHEN PFRMD 01/15/2011 COLONOSCOPY FLX DX W/COLLJ SPEC WHEN PFRMD 03/27/2016 Colonoscopy COLONOSCOPY FLX DX W/COLLJ SPEC WHEN PFRMD 06/08/2017 Colonoscopy DILATION & CURETTAGE DX&/THER NONOBSTETRIC Dilation & curettage EGD W/O [facility] SPEC VARICIES INJ N/A 01/20/2023 [facility] EGD W/O [facility] SPEC VARICIES INJ N/A 04/08/2023 [facility] EGD W/O [facility] SPEC VARICIES INJ N/A 11/09/2024 [facility] ESOPHAGOGASTRODUODENOSCOPY TRANSORAL DIAGNOSTIC 01/2004 EGD ESOPHAGOGASTRODUODENOSCOPY TRANSORAL DIAGNOSTIC 03/29/2018 EGD FRACTURE SURGERY LIG/TRNSXJ FLP TUBE ABDL/VAG APPR UNI/BI PAST SURGICAL HISTORY OF Left 07/07/2022 Left foot surgery with plates and screws placed STEREOTACTIC CORE BIOPSY 07/13/2007 LEFT BREAST- benign TONSILLECTOMY HX TONSILLECTOMY PRIMARY/SECONDARY <AGE 12 FAMILY HISTORY Problem Relation Age of Onset Diabetes Mother Hypertension Mother Hypertension Father Diabetes Father SOCIAL HISTORY Social History Tobacco Use Smoking status: Former Current packs/day: 0.00 Average packs/day: 0.3 packs/day for 3.0 years (0.8 ttl pk-yrs) Types: Cigarettes Start date: 06/08/1972 Quit date: 06/08/1975 Years since quittin.8 Smokeless tobacco: Never Vaping Use Vaping status: Never Used Substance Use Topics Alcohol use: Yes Comment: rare, once a year Drug use: No REVIEW OF SYSTEMS Abdomen: No abdominal pain, nausea, vomiting, diarrhea, or constipation. No bloating, early satiety, indigestion, or increased flatulence. Bladder: No dysuria, gross hematuria, urinary frequency, urinary urgency, or incontinence Breast: No breast lumps, nipple d/c, overlying skin changes, redness or skin retraction Allergies and current medication updated:Yes SENSITIVE EXAM: The sensitive examination was discussed with the Patient or Patient's Authorized News Camera Operator. As applicable, any other physician, advance practice provider, medical student, or other health professional student that will be observing or involved in the sensitive examination for educational or training purposes was discussed with the Patient or Authorized News Camera Operator. The Patient or Authorized News Camera Operator has agreed to proceed with the sensitive examination. (Sensitive examination includes inspection and/or palpation of the breasts, pelvis, prostate and anorectal regions). EXAM: BP 108/68 Ht 4' 11.252" (1.51m) Wt 150 lb (68.0kg) LMP 01/31/2005 BMI 30.04 kg/(m^2). GENERAL: pleasant, female in no apparent distress HEENT: Normocephalic, atraumatic, mucus membranes moist, and no lesions NECK: Supple, full range of motion, no adenopathy, and thyroid normal DERMATOLOGY: Normal, without lesions, non-icteric, and non-hirsute BREAST: soft, non-tender, symmetric, no dominant mass, normal nipple-areolar complex, no lymphadenopathy, and no nipple discharge CHEST: Normal inspiratory effort ABDOMEN: soft, rebound Absent, and tender RUQ w fullnes PELVIC: external genitalia normal, normal Bartholin's glands, urethra, [place]'s glands, no vulvar lesions, no cervical lesions, good vaginal support, physiologic discharge present, normal appearing perineal body and perianal region BIMANUAL: uterus normal size, shape and consistency, no adnexal masses, non- tender, and noting R adnexal fullness RECTOVAGINAL: deferred. NEURO: alert and oriented x3,exam grossly non-focal EXTREMITIES: normal ASSESSMENT/PLAN: 1) Health maintenance: Mammogram ordered 2) Follow up one year or sooner as needed Regan Noland MD documented in [facility] encounterMem[facility]05-28-[facility] History of Present illness Narrative* Esteban Thapa MD - 03/15/2025 9:00 AM EDT [facility] [address] [facility] [address] [facility] [address] Dept: [phone] Dept Loc: [phone] Visit type: Established Patient Reason for Visit: Follow-up and Headache Assessment and Plan 1. Migraine with aura and without status migrainosus, not intractable - galcanezumab (Emgality) 120 MG/ML auto-injector; Inject 1 Syringe (120 mg) under the skin every 30 (thirty) days., Starting Thu03/15/2025, Until Thu04/14/2025, Normal 2. Primary insomnia - gabapentin (Neurontin) 400 MG capsule; TAKE 2-3 CAPS ABOUT 90 MIN PRIOR TO BEDTIME., Starting Thu03/15/2025, Until Thu06/13/2025 at 2359, Normal Subjective HPI: She reports that the Emgality is working well. She is down to 1 migraine. The rizatriptan works when she takes. She reports that she is sleeping better. She reports that gabapentin is working. She reports that her liver testing has been good of late. REVIEW OF SYSTEMS: Review of Systems Constitutional: Negative for appetite change, chills, diaphoresis, fever and unexpected weight change. HENT: Negative for dental problem and mouth sores. Eyes: Negative for discharge and itching. Respiratory: Negative for chest tightness. Cardiovascular: Negative for chest pain and leg swelling. Gastrointestinal: Negative for rectal pain and vomiting. Endocrine: Negative for polydipsia, polyphagia and polyuria. Genitourinary: Negative for decreased urine volume, flank pain and genital sores. Musculoskeletal: Negative for arthralgias. Skin: Negative for color change. Allergic/Immunologic: Negative for food allergies and immunocompromised state. Neurological: Positive for headaches. Hematological: Negative for adenopathy. Does not bruise/bleed easily. Psychiatric/Behavioral: Positive for sleep disturbance. Negative for agitation, behavioral problems, decreased concentration and suicidal ideas. Allergies Allergen Reactions Ciprofloxacin Metronidazole Penicillins Statins Other reaction(s): Other (See Comments) Sulfa Antibiotics Current Outpatient Medications: allopurinol (Zyloprim) 100 MG tablet, Take 100 mg by mouth daily., Disp: , Rfl: Apple Cider Vinegar 300 MG tablet, Take by mouth., Disp: , Rfl: Black Elderberry (SAMBUCUS ELDERBERRY PO), Take by mouth., Disp: , Rfl: co-enzyme Q-10 30 MG capsule, Take 30 mg by mouth daily., Disp: , Rfl: Cranberry 500 MG capsule, Take by mouth., Disp: , Rfl: cycloSPORINE (Restasis MultiDose) 0.05 % ophthalmic emulsion, 1 drop 2 times daily., Disp: , Rfl: dulaglutide (Trulicity) 3 MG/0.5ML solution pen-injector, Inject 3 mg under the skin once a week., Disp: , Rfl: erythromycin (Romycin) 5 MG/GM ophthalmic ointment, Apply to affected eye(s)., Disp: , Rfl: fluorometholone (FML) 0.1 % ophthalmic suspension, INSTILL 1 DROP INTO EACH EYE TWICE DAILY, Disp: , Rfl: glimepiride (Amaryl) 4 MG tablet, TAKE 2 TABLETS BY MOUTH ONCE DAILY WITH BREAKFAST, Disp: , Rfl: Lactobacillus (ACIDOPHILUS/BIFIDUS PO), Take by mouth., Disp: , Rfl: LACTULOSE PO, Take by mouth., Disp: , Rfl: levothyroxine (Synthroid, Levoxyl) 75 MCG tablet, Take 75 mcg by mouth in the morning., Disp: , Rfl: magnesium 250 MG tablet, Take by mouth., Disp: , Rfl: metFORMIN (Glucophage) 1000 MG tablet, Take 1 tablet by mouth in the morning and 1 tablet in the evening. Take with meals., Disp: , Rfl: Multiple Vitamins-Minerals (HAIR SKIN AND NAILS FORMULA PO), Take by mouth., Disp: , Rfl: Multiple Vitamins-Minerals (Multivitamin Adult) chewable tablet, Chew., Disp: , Rfl: pantoprazole (ProtoNix) 40 MG EC tablet, Take 40 mg by mouth daily., Disp: , Rfl: SM Fexofenadine HCl 180 MG tablet, Take 180 mg by mouth daily., Disp: , Rfl: spironolactone (Aldactone) 25 MG tablet, Take 25 mg by mouth Once. Take 1/2 tab daily, Disp: , Rfl: Xifaxan 550 MG tablet, Take 550 mg by mouth 2 times daily., Disp: , Rfl: gabapentin (Neurontin) 400 MG capsule, TAKE 2-3 CAPS ABOUT 90 MIN PRIOR TO BEDTIME., Disp: 270 capsule, Rfl: 3 galcanezumab (Emgality) 120 MG/ML auto-injector, Inject 1 Syringe (120 mg) under the skin every 30 (thirty) days., Disp: 1 each, Rfl: 11 rizatriptan INSPECTOR AND HAND PACKAGER (Maxalt-INSPECTOR AND HAND PACKAGER) 10 MG disintegrating tablet, Take 1 tablet (10 mg) by mouth Once as needed for migraine. May repeat in 2 hours if unresolved. Do not exceed 20 mg in 24 hours., Disp: 9 tablet, Rfl: 11 Past Medical History: Diagnosis Date Diabetes mellitus (HCC) Headache Migraine Age 19 Social History Tobacco Use Smoking status: Former Current packs/day: 0.00 Average packs/day: 0.3 packs/day for 4.0 years (1.0 ttl pk-yrs) Types: Cigarettes Start date: 10/19/1969 Quit date: 10/19/1973 Years since quittin.4 Smokeless tobacco: Never Tobacco comments: Smoked when I was younger Substance Use Topics Alcohol use: Not Currently Comment: Icasionally Past Surgical History: Procedure Laterality Date SECTION (HISTORICAL) IMGHX FL UPPER GI W AIR CONTRAST 02/2025 TONSILLECTOMY (HISTORICAL) VEIN SURGERY Family History Problem Relation Name Age of Onset Diabetes Mother Marylin Hubbard Stroke Mother Marylin Hubbard Heart attack Father Asad Hubbard Parkinsonism Father Asad Hubbard Objective Vitals: BP 108/68 (BP Location: Left arm, Patient Position: Sitting, BP Cuff Size: Adult) Pulse 80 Ht 4' 11" (1.499 m) Wt 153 lb 3.2 oz (69.5 kg) BMI 30.94 kg/m General Appearance: Patient is in no apparent distress. Head is normocephalic, atraumatic Cardiovascular: Regular rate and rhythm. No heart murmurs. No carotid bruit Neurologic: Mentation: Alert and oriented x 3 to person, place and time. Speech and Language: Speech and language normal Concentration and Attention: Concentration normal Memory: Memory grossly normal. Fund of Knowledge: Fund of knowledge normal Cranial Nerves: II, III, IV, V, , VII, VIII, IX, X, XI, XII examined and were intact. Motor: Strength: Strength 5 out of 5 with normal tone Alternating Movements: Normal Cogwheel Rigidity: None Tone: Tone is normal Tremor / Involuntary Movements: None Deep Tendon Reflexes: 1 out of 4 symmetrical in all four limbs. Coordination: Normal coordination upper and lower extremities Gait and Station: Station is normal. Gait is normal Data Reviewed and Summarized DIAGNOSTIC TESTING XR CERVICAL SPINE W OBLIQUES FLEXION AND EXTENSION Narrative: Patient Name: KRISTA CAMPBELL ---Diagnostic Radiology--- Exam Date/Time 09/07/2020 11:44:41 EST Exam CR Spine Cervical Comp w/ Obliques Ordering Physician ESTEBAN THAPA Accession Number [id number] CPT4 Codes 36078 () Reason For Exam Cervicalgia Report CLINICAL INDICATION: Neck pain. Cervical spine seven views including AP, open mouth odontoid views, bilateral oblique views and flexion, extension and neutral lateral views. Normal height of the cervical vertebral bodies. Alignment is maintained on flexion, extension and neutral lateral views. Moderate disc space narrowing at C5-C6. Degenerative endplate changes at C5-C6. Bilateral foraminal stenosis at C5-C6, greater on the left side. The C1/C2 alignment is within normal limits. Soft tissues are unremarkable. Impression: Degenerative disc and endplate changes at C5-C6. Bilateral foraminal compromise at C5-C6, left worse than right. Report Dictated on --- Final --- Dictating Physician: MD PEREZ LAURA Signed Date and Time: 09/07/2020 2:13 pm Signed by: MD PEREZ LAURA Transcribed Date and Time: 09/07/2020 2:14 IMPRESSION and PLAN: Diagnosis Plan 1. Migraine with aura and without status migrainosus, not intractable galcanezumab (Emgality) 120 MG/ML auto-injector 2. Primary insomnia gabapentin (Neurontin) 400 MG capsule Continue the Emgality and prn rizatriptan. She was advised that when she has a period of a couple of months when she will be in [place], she should consider stopping the Emgality and see if the migraines stay at 2 or fewer days per month and that they are easily treated with rizatriptan. In that event, she could stop Emgality altogether. If they come back, however, she has to go back on it. Continue the gabapentin. Esteban hTapa MD I spent 20 minutes caring for this patient today, reviewing labs, records, seeing the patient, documenting in the record and arranging for studies. documented in this [facility]05-27-2025 Telephone encounter Note* Telephone Encounter - Taty Julian MD - 03/14/2025 4:21 PM EDT OK to refill as ordered Taty Julian MD [facility]05-27-2025 Miscellaneous Notes* Telephone Encounter - Taty Julian MD - 03/14/2025 4:21 PM EDT OK to refill as ordered Taty Julian MD * Telephone Encounter - Javier Valladares LPN - 03/14/2025 4:17 PM EDT Pt requesting rx Trulicity to go to [facility]. Rx for Zetia 10mg #90 with 3 refills was sent to pharmacy on 12/09/24. Pt not due for refill. Javier Valladares LPN * Telephone Encounter - Kandice Parisi - 03/14/2025 3:46 PM EDT Prescription Refill Information The patient has been identified by name and date of : Yes Caregiver verified no other encounters exist for this prescription request: Yes Caregiver confirmed with patient/requestor that no other refills are due, in the near future, with this provider at this time: Yes The last office visit in the department: 03-10-25 Does the patient have a future office visit with this provider/department: Yes Requested Prescriptions Pending Prescriptions Disp Refills dulaglutide (TRULICITY) 4.5 mg/0.5 mL pen injector 6 mL 3 Sig: Inject 4.5 mg subcutaneously one time a week. ezetimibe (ZETIA) 10 mg tablet 90 tablet 3 Sig: Take 1 tablet by mouth once daily. [facility] per patient Kandice Peng March 14, 2025 3:48 PM [facility] Note * Telephone Encounter - Javier Valladares LPN - 03/14/2025 4:17 PM EDT Pt requesting rx Trulicity to go to [facility]. Rx for Zetia 10mg #90 with 3 refills was sent to pharmacy on 12/09/24. Pt not due for refill. Javier Valladares LPN [facility]05-27-2025 Telephone encounter Note* Telephone Encounter - Kandice Parisi - 03/14/2025 3:46 PM EDT Prescription Refill Information The patient has been identified by name and date of : Yes Caregiver verified no other encounters exist for this prescription request: Yes Caregiver confirmed with patient/requestor that no other refills are due, in the near future, with this provider at this time: Yes The last office visit in the department: 03-10-25 Does the patient have a future office visit with this provider/department: Yes Requested Prescriptions Pending Prescriptions Disp Refills dulaglutide (TRULICITY) 4.5 mg/0.5 mL pen injector 6 mL 3 Sig: Inject 4.5 mg subcutaneously one time a week. ezetimibe (ZETIA) 10 mg tablet 90 tablet 3 Sig: Take 1 tablet by mouth once daily. [facility] per patient Kandice Peng March 14, 2025 3:48 PM [facility]05-[facility] NoteHNO ID: [id number] Author: TATY JULIAN MD Service: ? Author Type: Physician Type: Progress Notes Filed: 03/10/2025 08:57 Note Text: Chief Complaint Patient presents with: F/U 3 Month HPI Krista Campbell is a 69 year old female who presents here today for a 3 month follow up. Follows with Gastro Dr. Yen and Dr. Curtis for cirrhosis. Dyshpagia, and esophageal varices. Had EGD done on 02/27/25, has procedure every 3 months. GERD sx controlled with Protonix 40 mg 1 pill BID. Is taking Lactulose 10 g TID for cirrhosis. Started on Aldactone 25 mg, 1 pill daily and Xifaxan 550 mg 1 pill BID. No longer following with a CLINICAL SOCIAL WORKER for pelvic exams. Getting her Mammogram through [facility]. DM: Checking her sugars once daily with FBS ranging from 150-200. Denies any hypoglycemic episodes. 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 Follows with Eye Doctor, recent visit on 03/02/25. On current regimen of Metformin 1,000 mg 1 pill BID and Trulicity 4.5 mg weekly. Amaryl was d/c last visit due to low bs. Since going off medication has not had any further lows, but due to sugars being higher Trulicity was increased from 3 mg to 4.5 mg weekly. Lipid: Taking Zetia 10 mg daily. Tries to watch diet, portion sizes, eat more salads, vegetables, and limiting meat and sugar intake. Some activity. Anemia: Hx of transfusions, taking Iron every other day. Follows with GI for cirrhosis and varices. Recent EGD done on 02/27/25. Thyroid: Feels she's stable on current regimen of Levothyroxine 75 mcg once daily. Denies any missed dosages. Her liver doctor Dr. Worrell changed dose from 88 mcg to 75 mcg daily due to low TSH in 12/13. Gout: No recent flare ups. Stable with Allopurinol 300 mg daily[address]. Kulkarni, Podiatry with [facility]. Migraines : Doing well on her current regimen of Gabapentin 400 mg 2 pills at bedtime, Emgality injections every month and Maxalt prn. Follows with Dr. Thapa, Neuro. Follows with Maria Esther Singh, had skin cancer removed from neck. Past medical history, appointments, medications, allergies reviewed. Previous Medical History PAST MEDICAL HISTORY Diagnosis Date Arthritis in Hands Cervical disc disease Diabetes (HCC) Gout Macular degeneration Other forms of migraine Personal history of colonic polyps Snoring does not use C-pap Thyroid disease Previous Surgical History PAST SURGICAL HISTORY Procedure Laterality Date ABDOMINAL SURGERY HX DELIVERY ONLY , low cervical COLONOSCOPY 07/11/2022 repeat in 5 years COLONOSCOPY FLX DX W/COLLJ SPEC WHEN PFRMD 01/09/2010 Colonoscopy COLONOSCOPY FLX DX W/COLLJ SPEC WHEN PFRMD 01/15/2011 COLONOSCOPY FLX DX W/COLLJ SPEC WHEN PFRMD 03/27/2016 Colonoscopy COLONOSCOPY FLX DX W/COLLJ SPEC WHEN PFRMD 06/08/2017 Colonoscopy DILATION AND CURETTAGE DXAND/THER NONOBSTETRIC Dilation AND curettage EGD W/O [facility] SPEC VARICIES INJ N/A 01/20/2023 [facility] EGD W/O [facility] SPEC VARICIES INJ N/A 04/08/2023 [facility] EGD W/O [facility] SPEC VARICIES INJ N/A 11/09/2024 [facility] ESOPHAGOGASTRODUODENOSCOPY TRANSORAL DIAGNOSTIC 01/2004 EGD ESOPHAGOGASTRODUODENOSCOPY TRANSORAL DIAGNOSTIC 03/29/2018 EGD FRACTURE SURGERY LIG/TRNSXJ FLP TUBE ABDL/VAG APPR UNI/BI PAST SURGICAL HISTORY OF Left 07/07/2022 Left foot surgery with plates and screws placed STEREOTACTIC CORE BIOPSY 07/13/2007 LEFT BREAST- benign TONSILLECTOMY HX TONSILLECTOMY PRIMARY/SECONDARY Family History FAMILY HISTORY Problem Relation Age of Onset Diabetes Mother Hypertension Mother Hypertension Father Diabetes Father Patient Allergies ALLERGIES Allergen Reactions Wzesppu-Ece-Ibg Red* Myalgia Knees shake, weak and joints ache Cipro [Ciprofloxaci* Hives Metronidazole Hives Penicillins Rash Age 19 -- rash all over, hives Sulfa (Sulfonamide * Rash Current Medications Current Outpatient Medications on File Prior to Visit Medication Sig ferrous sulfate 325 mg (65 mg iron) tablet Take 1 tablet by mouth every other day. carvedilol (COREG) 6.25 mg tablet Take 1 tablet by mouth two times a day with meals. pantoprazole DR (PROTONIX) 40 mg tablet Take 1 tablet by mouth two times a day. ezetimibe (ZETIA) 10 mg tablet Take 1 tablet by mouth once daily. metFORMIN (GLUCOPHAGE) 1,000 mg tablet Take 1 tablet by mouth two times a day with meals. dulaglutide (TRULICITY) 4.5 mg/0.5 mL pen injector Inject 4.5 mg subcutaneously one time a week. levothyroxine (SYNTHROID) 88 mcg tablet Take 1 tablet by mouth once daily. Take on empty stomach. rifAXIMin (XIFAXAN) 550 mg tablet Take 550 mg by mouth two times a day. spironolactone (ALDACTONE) 25 mg tablet Take 25 mg by mouth once daily. Take half pill daily allopurinol (ZYLOPRIM) 100 mg tablet Take 1 tablet by mouth once daily. Magnesium 250 mg tab Take 1 tablet by mouth twice daily. lactulose 10 gram/15 mL solution Take 30 mL by mouth (more content not included)...[facility]05-12-2025 Consult note [facility] Medical Records Department [address] [place] [address] Anesthesia Postop Eval I 02/27/25711 MR#: [id number] Acct: [id number] Name: KRISTA CAMPBELL Rep #:[id number] : 1955 69 From: Eder Mcrae PCP: Dr. Taty Julian MD Status:RE G SDC Y Race: C Location: [place] [address] Anesthesia: Postop Eval I Current Vital Signs Temperature: 97.9 F Pulse Rate: 81 Blood Pressure: 104/69 Respiratory Rate: 16 Pulse Ox: 95 Oxygen Delivery Method: Room Air Assessment Airway patent: Yes Spontaneous unlabored respirations: Yes Mental status: Asleep nausea: No Vomiting: No Anesthesia Complication: No Fluid Hydration Crystalloid volume administer (ml): 300 Total IV fluid infused: 300 Progress Note Anesthesia document: Postop Eval 1 completed: Yes 02/27/25711 > Date _ Edre Steinerigndrake Signature: Date CC: ~ Signed [facility]05-12-2025 Evaluation note* Diagnosis Onset Date Resolution Status Admit Date Thrombocytopenia acute February 5:20am Cirrhosis chronic February 27, 2025 5:20am Dysphagia chronic February 27, 2025 5:20am Esophageal varices chronic February 272024 5:20am Gastroparesis chronic February 27, 2 025 5:20am GI (gastrointestinal bleed) chronic February 27, 2025 5:20am RUQ abdominal tenderness acute April 24, 2025 9:31am Thrombocytopenia acute April 9:31am Cirrhosis chronic April 24, 2025 9:31am Esophageal varices chronic April 242024 9:31am Gastroparesis chronic April 24 025 9:31am [facility] Work Phone: 1(841) 517-964805-12-2025 Procedure note [facility] Medical Records Department [address] [place] [address] EGD Report MR#: [id number] Acct: [id number] Name: KRISTA CAMPBELL Rep #:[id number] : 1955 69 From: Toño Curtis DO PCP: Dr. Taty Julian MD Status:RE G [facility] Patient Name: Krista Campbell Procedure Date: 02/27/2025 6:35 AM Date of : 1955 Age: 69 Procedure: Upper GI endoscopy Indications: For therapy of esophageal varices Providers: Toño Curtis DO Referring MD: Taty Julian Medicines: Monitored Anesthesia Care Patient Profile: This is a 69 year old female. Refer to note in patient chart for documentation of history and physical. Patient has symptoms of dysphagia with solids. Complications: No immediate complications. Procedure: Pre-Anesthesia Assessment: - Prior to the procedure, a History and Physical was performed, and patient medications and allergies were reviewed. The patient is competent. The risks and benefits of the procedure and the sedation options and risks were discussed with the patient. All questions were answered and informed consent was obtained. Patient identification and proposed procedure were verified by the physician in the pre-procedure area. Mental Status Examination: alert and oriented. Airway Examination: normal oropharyngeal airway and neck mobility. Respiratory Examination: clear to auscultation. CV Examination: normal. Prophylactic Antibiotics: The patient does not require prophylactic antibiotics. Prior Anticoagulants: The patient has taken no anticoagulant or antiplatelet agents. ASA Grade Assessment: III - A patient with severe systemic disease. After reviewing the risks and benefits, the patient was deemed in satisfactory condition to undergo the procedure. The anesthesia plan was to use monitored anesthesia care (MAC). Immediately prior to administration of medications, the patient was re-assessed for adequacy to receive sedatives. The heart rate, respiratory rate, oxygen saturations, blood pressure, adequacy of pulmonary ventilation, and response to care were monitored throughout the procedure. The physical status of the patient was re-assessed after the procedure. After obtaining informed consent, the endoscope was passed under direct vision. Throughout the procedure, the patient's blood pressure, pulse, and oxygen saturations were monitored continuously. The Endoscope was introduced through the mouth, and advanced to the second part of duodenum. The upper GI endoscopy was accomplished without difficulty. The patient tolerated the procedure well. Scope In: 6:51:54 AM Scope Out: 6:58:45 AM Total Procedure Duration Time 0 hours 6 minutes 51 seconds Findings: Grade III varices were found in the middle third of the esophagus and in the lower third of the esophagus. They were 15 mm in largest diameter. Two bands were successfully placed with incomplete eradication of varices. There was no bleeding during and at the end of the procedure. Mild portal hypertensive gastropathy was found in the entire examined stomach. No gross lesions were noted in the entire examined duodenum. Impression: - Grade III esophageal varices. Incompletely eradicated. Banded. - Portal hypertensive gastropathy. - No gross lesions in the entire examined duodenum. - No specimens collected. Recommendation: - Discharge patient to home. - Resume previous diet. - Continue present medications. Procedure Code(s): --- Professional --- 97088, Esophagogastroduodenoscopy, flexible, transoral; with band ligation of esophageal/gastric varices CPT copyright 2021 [employer]. All rights reserved. The codes documented in this report are preliminary and upon financial advisor review may be revised to meet current compliance requirements. Toño Curtis DO 02/27/2025 7:03:39 AM This report has been signed electronically. Number of Addenda: 0 Note Initiated On: 02/27/2025 6:35 AM 02/27/25 0704 Date _ Toño Curtis DO Cosigner Signature: Date (if indicated) CC: Dr. Taty Julian MD; Toño Curtis DO ~ Date Dictated: 02/27/25634 Date Transcribed: 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: RF Signed [facility]05-12-2025 Procedure note [facility] Medical Records Department [address] [place] [address] Operative Report - CC Letter MR#: [id number] Acct: [id number] Name: KRISTA CAMPBELL Rep #:[id number] : 1955 69 From: Toño Curtis DO PCP: Dr. Taty Julian MD Status:RE G [facility] 02/27/2025 Taty Julian [address] [place] [address] Re : Upper GI endoscopy procedure for Krista Campbell Dear Dr. Julian This procedure was performed on Thursday, February 27, 2025. My impressions and recommendations are as follows: Impressions : - Grade III esophageal varices. Incompletely eradicated. Banded. - Portal hypertensive gastropathy. - No gross lesions in the entire examined duodenum. - No specimens collected. Recommendations : - Discharge patient to home. - Resume previous diet. - Continue present medications. My findings are described in the full procedure note, which is enclosed. If I can be of further assistance, please feel free to contact me at . Sincerely, Toño Curtis DO 02/27/2025 7:03:39 AM This report has been signed electronically. 02/27/25703 Date _ Toño Virk Signature: Date (if indicated) CC: Dr. Taty Julian MD; Toño Curtis DO ~ Date Dictated: 02/27/25634 Date Transcribed: 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: RF Signed [facility]05-12-2025 History and physical note [facility] Medical Records Department [address] [place] [address] History & Physical Exam 02/27/25640 MR#: [id number] Acct: [id number] Name: KRISTA CAMPBELL Rep #:[id number] : 1955 69 From: Toño Friend DO PCP: Dr. Taty Julian MD Status:RE G [facility] Location: [place] [address] HPI - General General Date of Admission: 02/27/25 Date of Service: 02/27/25 Chief Complaint: dysphagia HPI Narrative KRISTA CAMPBELL, is a 69 F who presents for the evaluation of dysphagia *[facility] hospitalization 4.12.11-01.21.23 for upper GIB with hematemesis with nausea and weakness. GI consulted .01.08. CT abd/pel .12.11 hepatomegaly with cirrhotic changes; stool throughout colon; enhancing nodule of duodenum [id number]. EGD .01.08 five columns oozing grade III varices upper/middle/lower esophagus, banded; three bleeding AVM in stomach; one non-bleeding duodenal ulcer. No specimens collected MRI 01.21.23 cirrhotic liver with splenomegaly; duodenal enhancement measuring 1.5cm. OV 6.2.23 with acidic stomach for which she has used PPI for 10 years. With lactulose BM daily, loose. reports forgetfulness. Denies sleep disturbance, jaundice, bleeding, pruritis. US 6.15.23 without ascites. EGD 6..23 Grade II varices of middle/lower third esophagus, banded; small hiatal hernia; erythemawith bleeding on lesser curvature of stomach, gastritis;5mm mucosal polypoid OV 7.10.23 with improvement of nausea frequency. She did reduce lactulose QD with 2-3 BM/day. Confusion/brain fog has improved per . Notes increased cough with liquids but not consistently. Continues with nadolol and PPI EGD 08.10.23- Grade II esophageal varices, incompletely eradicated. Banded; small amount of food instomach. No specimines collected. OV 11.27.23- Pt is doing well since last visit. Reports intermittent postprandial RUQ pain and nausea. Takes Lactulose QD with 2-3 complete BM a day.Denied any edema, confusion/ brain fog or issues with sleep. Continues PPI with minimal heartburn. MELD Na score is 8. C/o mild upper quadrant abdominal pain adjacent with the food on lactulose but lactulose makes her more nauseous but novomiting, burping and gaseous feeling. OV 12.02.23- Nausea, indigestion, and upper mid to LUQ abdomen abdominal pain after eating certain foods in the evening, attempting keep away from triggers. She states that food stays longer with burping and air/gas. Occasional Tums PRNwith success. Nausea after taking lactulose improved. Loose stool about once daily. She takes lactulose 30 mL once daily. Mild swelling in feet. Gabapentin prescribed by neurologist effective sleep aide. Denies confusion, brain fog and BLE edema. Received correspondence from medical insurance prior auth needed Xifaxan through [facility]. CT abd/pel w/wo 12.16.23- Hepatomegaly and diffuse fatty infiltration of the liver Gastric emptying study 02.17.24- Abnormal, 102.96 mins 02.23.24 MELD na- 7 OV 03.07.24- Pt well since last visit. Continues to have nausea and RUQ abdominal discomfort/pressure like fist pressing. States she takes Lactulose once a day and BM are normal. She was able to get the Xifaxan. Denies dizziness,weakness, confusion, and swelling. 06.07.24- MELDNa, 8 07.06.24 EGD, grade II esophageal varices. Completely eradicated. Banded. Non- bleeding gastric ulcer with no stigma of bleeding. Biopsied. Portal hypertensivegastropathy. No gross lesions in the first portion of the duodenum. Lesser curvature ulcer biopsy, negative H.Pylori. Chronic ulcer with gastritis. Continue pantoprazole 40 mg BID, start Carafate TID x 8 weeks. OV 07.15.24- Since recent EGD, difficulty swallowing and chest heaviness. Nauseaand heartburn before or after meals. No acute concerns. Denies dizziness, weakness, confusion or swelling. Need refill of iron tabs. Patient taking PPI twice daily and sucralfate 09.20.24MELD na 6, Barium swallow 07.25.24 OV 09.28.24 Pt here for f/u and reports trouble swallowing. Dysphagia with solid food/liquid food and 1 time gummy was stuck in the throat. And denies anyedema, confusion/brain fog or sleep issues. Continues taking pantoprazole, lactulose, and Xifaxan daily. EGD 11.09.24- - Grade II esophageal varices. Incompletely eradicated. Banded. - Portal hypertensive gastropathy. - Chronic duodenitis. Biopsied. no pathologic diagnosis. RUQ Liver US; Elastography 12.27.24- liver measures 16.8 cm. increased echogenicity consistent withfatty infiltration. Median liver stiffness [id number] kPa F2-F3 Metavir score. LUQ ABD US- Mild splenomegaly, spleen measures 13.3 cm x 5.2 cm x 6.3 cm. Labs 3.8.25- INR 1.0. Sod 138. Creatinine 0.65. Bili 0.33. MELD 6 OV 3.13.25- Fatigued. D/C from speech therapy with some improvement in swallowing. Was given exercises to continue at home. Continued occasional heartburn, pantoprazole 40 BID and diet changes helpful. Occ brief episodes nausea, crackers or sprite helpful. Continued RUQ pain unchanged. . [facility] Medical History Back pain Wears glasses Thyroid disease Gout Arthritis Anemia High cholesterol History of GI bleed History of diverticulitis Gastric reflux Former smoker History of edema History of echocardiogram History of stress test Hypertension Diabetes Migraines Home Medications ?Medication ?Instructions ?Recorded ?Last Taken ?Type rizatriptan 10 mg tablet 10 mg PO PRN PRN Migraine He adache 12/28/13 Unknown History Lactobacillus acidophilus 10 mg PO DAILY Check with pr imary 01/18/23 02/19/25 History (Acidophilus capsule) doctor allopurinol 100 mg tablet 100 mg PO DAILY Check with p rimary 01/18/23 02/26/25 History doctor cyclosporine 0.05 % eye drops in a 1 drp ophthalmic (e ye) BID health 01/18/23 02/26/25 History dropperette (Restasis) maintenance erythromycin 5 mg/gram (0.5 %) eye 1 applic ophthalmic (eye) Q 01/18/23 02/26/25 History ointment health maintenance ezetimibe 10 mg tablet 10 mg PO DAILY Check with pr imary 01/18/23 02/26/25 History doctor fluorometholone 0.1 % eye 1 drp ophthalmic (eye) BID h ealth 01/18/23 02/26/25 History drops,suspension maintenance [facility]abapentin 400 mg tablet [facility]/18/23 02/26/25 Hist ory galcanezumab-gnlm 120 mg/mL 120 mg subcut QMONTH Check with 01/18/23 02/24/25 History subcutaneous pen injector primary doctor (Emgality Pen) metformin 1,000 mg tablet 1,000 mg PO BID diabetic 12/1111/08/24 History multivitamin with minerals 2 tab PO DAILY Check with p rimary 01/18/23 02/19/25 History (Hair,Skin and Nails tablet) doctor oboodtjrwjdf-Zq-kysm-minerals 18 2 tab PO DAILY health maintenance 01/18/23 02/19/25 History mg-0.4 mg tablet vit C 250 mg-vit E 90 mg-zinc 40 1 tab PO BID Check wi primary 01/18/23 Unknown History mg-copper 1 ez-hfklie-luwvgs doctor capsule (PreserVision AREDS-2) magnesium 200 mg tablet 200 mg PO DAILY Check with p rimary 07/04/24 02/19/25 History doctor lactulose 20 gram/30 mL oral 20 g PO QDAY 07/15/2409/12 History solution spironolactone 25 mg tablet 25 mg PO DAILY 1 month #30 tabs 07/15/24 02/26/25 Rx rifaximin 550 mg tablet (Xifaxan) 550 mg PO BID 30 day s #60 tabs 09/28/24 02/26/25 Rx ascorbic acid (vitamin C) 500 mg 500 mg PO BID 1 month #60 tabs 12/29/24 02/19/25 Rx chewable tablet dulaglutide 3 mg/0.5 mL 4.5 mg subcut TH Check with 12/29/24 02/09/25 History subcutaneous pen injector primary doctor (Benulicity) elderberry fruit 350 mg capsule 700 mg PO QDAY 5 02/19/25 History ferrous sulfate 325 mg (65 mg 325 mg PO QDAY 1 month # 30 tabs 12/29/24 02/19/25 Rx iron) tablet levothyroxine 75 mcg tablet 75 mcg PO QDAY 1 month #30 tabs 12/29/24 02/27/25 Rx pantoprazole 40 mg tablet,delayed 40 mg PO QDAY 02/27/25 History release vit C 62.5 mg-vit D3 15 mcg-zinc 2 tab PO QDAY 5 02/19/25 History 2.75 mg-herbal no.358 chewable tablet (Immune Power) carvedilol 6.25 mg tablet 6.25 mg PO BID 1 month #60 t abs 01/19/25 02/27/25 Rx Allergy/AdvReac Type Severity Reaction Status Date / Time ciprofloxacin (From Cipro) Allergy Other Verified 02/27/25 05:56 ciprofloxacin HCl (From Allergy Other Verified 02/27/25 05:56 Cipro) metronidazole Allergy Other Verified 02/27/25 05:56 Penicillins (PCN) Allergy Other Verified 02/27/25 05:56 Sulfa (Sulfonamide Allergy Rash Verified 02/27/25 05:56 Antibiotics) Aklfxtl-UIE-EtH Reductase AdvReac Other Verified 02/27/25 05:56 Inhibitor Family History Grandfather Diabetes Grandmother Diabetes Father Heart problem Mother CVA (cerebral vascular accident) Surgical History History of esophagogastroduodenoscopy (EGD) Hx of esophagogastroduodenoscopy Hx of tonsillectomy History of Status post left foot surgery Social History Smoking Status: Never smoker alcohol intake: never substance use type: does not use ROS Constitutional Constitutional: Denies fatigue, fever(s), poor appetite, weight gain or weight loss Gastrointestinal Gastrointestinal: Denies belching, bloating, change in bowel habits, change in stool character, chewing difficulty, coffee ground emesis, constipation, cramping, diarrhea, dyspepsia, dysphagia, earlysatiety, excessive flatus, fecalincontinence, heartburn, hematemesis, hematochezia, hemorrhoids, loose stools, melena, nausea, odynophagia, rectal bleeding, tenesmus, vomiting or weight changes Vital Signs Vital Signs Vital Signs: 02/27/25 05:59 02/27/25 05:59 02/27/25 06:26 Temperature 97.7 F L 97.7 F L Temperature Source Temporal Pulse Rate 77 77 Respiratory Rate 18 18 Respiratory Pattern Normal Blood Pressure 102/65 102/65 Blood Pressure Mean 77 Blood Pressure Source Monitor Blood Pressure Position Semi-Fowlers Blood Pressure Location Left Arm Pulse Ox 98 98 Oxygen Delivery Method Room Air Room Air Weight Weight: 153 lb 10.595 oz Body Mass Index (BMI) 31.0 Physical Exam Const alert, oriented x3, no apparent distress and healthy appearing General Appearance: cooperative GI normal to inspection, nondistended, normoactive bowel sounds, soft to palpation,non-tender and non-distended Percussion: normal to percussion Rectal Exam: deferred Assessment & Plan Assessment/Plan (1) Dysphagia: (2) Gastroparesis: (3) Esophageal varices: QUALIFIERS: Esophageal varices type: secondary Esophageal varicesbleeding: without bleeding Qualified Code(s): I85.10 - Secondary esophageal varices without bleeding (4) Cirrhosis: (5) Thrombocytopenia: (6) GI (gastrointestinal bleed): PLAN: Assessment and Plan Assessment and Plan (1) Cirrhosis: Status: Chronic Plan: 67-year-old with nonalcoholic steatohepatitis decompensated cirrhosis with MELD sodium score 6 on December 24, 2024 class CTP A, 5 points. The patient had variceal bleed, grade 3 to grade had recent EGD in June 2024 which showed grade 2 esophageal varices completely eradicated, banded. Nonbleeding gastric ulcer. PHG. Negative for H. pylori. She is on pantoprazole 40 mg twice daily. Patient completed sucralfate. She takes lactulose 30 mill once daily. Labs reviewed from December 2024. Glucoseis 282. A1c in November was also elevated 6.9%. Her baseline nausea is only 6.1 to 6.5%. On metformin. Anemia of chronic disease and iron versus anemia. Hemoglobin dropped and she is pale, H&H 8.0/29.6%. Ferrous sulfate advised every other day along with vitamin C Last CT abdomen, triple phase, November 2023 and MRI abdomen/pelvis from January 2023 were reviewed. Cirrhotic changes but no specific mass reported. Borderline splenomegaly. Continue spironolactone 25 mg daily, carvedilol 6.25 mg twice daily. Ferrous sulfate increased to 325 mg every day along with vitamin C. Continue lactulose and Xifaxan Follow-up labs ordered in 4-month (2) Esophageal varices: Status: Chronic Qualifiers: Esophageal varices bleeding: without bleeding Esophageal varices type: secondary Qualified Code(s):I85.10 - Secondary esophageal varices without bleeding Plan: EGD reviewed with the patient along with a diagram. Discussed with Dr. Curtis. In EGD on 11/09/2024 Impressions : - Grade II esophageal varices. Incompletely eradicated. Banded. - Portal hypertensive gastropathy. - Chronic duodenitis. Biopsied. Recommendations : - Discharge patient to home. - Resume previous diet. - Continue present medications. - Await pathology results. - Repeat upper endoscopy in 4 months for surveillance. SCHEDULED ON 02/27/25 Pathology shows chronic duodenitis PPI changed from 40 mg twice daily to once daily probably over suppression of gastric acid therefore decreased absorption of ferrous sulfate (3) Dysphagia: Status: Chronic Plan: Patient has been cleared from the speech therapist and advised to do speech/swallow exercises at home Orders: Orders Stool Occult Blood iFOB 2 Weeks I85.10 - Secondary esophageal varices without bleeding, K92.2 - Gastrointestinal hemorrhage, unspecified Medications: New levothyroxine 75 mcg PO QDAY 1 month 30 tabs 3RF ascorbic acid (vitamin C) 500 mg PO BID 1 month 60 tabs 2RF Changed From ferrous sulfate 325 mg PO Q OTHER DAY 1 month 30 tabs 5RF To ferrous sulfate 325 mg PO QDAY 1 month 30 tabs 5RF From pantoprazole 40 mg PO BID To pantoprazole 40 mg PO QDAY Discontinued levothyroxine Discontinued Reason: Discontinued by PCP/other physicians 88 mcg PO DAILY 02/27/25 0645 Cosigner Signature (if applicable): CC: Dr. Taty Julian MD; Toño Curtis DO~ Signed [facility]05-12-2025 [facility] Medical Records Department [address] [place] [address] History Physical Exam 02/27/25 0641 MR#: [id number] Acct: [id number] Name: KRISTA CAMPBELL Rep #: [id number] : 1955 69 From: Toño Curtis DO PCP: Dr. Taty Julian MD Status:[facility] Location: [place] [address] HPI - General General Date of Admission: 02/27/25 Date of Service: 02/27/25 Chief Complaint: dysphagia HPI Narrative KRISTA CAMPBELL, is a 69 F who presents for the evaluation of dysphagia *[facility] hospitalization 01.18.23-01.21.23 for upper GIB with hematemesis with nausea and weakness. GI consulted 01.19.23. CT abd/pel 01.18.23 hepatomegaly with cirrhotic changes; stool throughout colon; enhancing nodule of duodenum 33c63hr. EGD 01.19.23 five columns oozing grade III varices upper/middle/lower esophagus, banded; three bleeding AVM in stomach; one non-bleeding duodenal ulcer. No specimens collected MRI 01.21.23 cirrhotic liver with splenomegaly; duodenal enhancement measuring 1.5cm. OV 6.. with acidic stomach for which she has used PPI for 10 years. With lactulose BM daily, loose. reports forgetfulness. Denies sleep disturbance, jaundice, bleeding, pruritis. US 6.. without ascites. EGD 04.08.2323 Grade II varices of middle/lower third esophagus, banded; small hiatal hernia; erythema with bleeding on lesser curvature of stomach, gastritis; 5mm mucosal polypoid OV 7.10.23 with improvement of nausea frequency. She did reduce lactulose QD with 2-3 BM/day. Confusion/brain fog has improved per . Notes increased cough with liquids but not consistently. Continues with nadolol and PPI EGD 08.10.23- Grade II esophageal varices, incompletely eradicated. Banded; small amount of food in stomach. No specimines collected. OV 11.27.23- Pt is doing well since last visit. Reports intermittent postprandial RUQ pain and nausea. Takes Lactulose QD with 2-3 complete BM a day. Denied any edema, confusion/ brain fog or issues with sleep. Continues PPI with minimal heartburn. MELD Na score is 8. C/o mild upper quadrant abdominal pain adjacent with the food on lactulose but lactulose makes her more nauseous but no vomiting, burping and gaseous feeling. OV 2.14.24- Nausea, indigestion, and upper mid to LUQ abdomen abdominal pain after eating certain foods in the evening, attempting keep away from triggers. She states that food stays longer with burping and air/gas. Occasional Tums PRN with success. Nausea after taking lactulose improved. Loose stool about once daily. She takes lactulose 30 mL once daily. Mild swelling in feet. Gabapentin prescribed by neurologist effective sleep aide. Denies confusion, brain fog and BLE edema. Received correspondence from medical insurance prior auth needed Xifaxan through [employer]. CT abd/pel w/wo 12.16.23- Hepatomegaly and diffuse fatty infiltration of the liver Gastric emptying study 02.17.24- Abnormal, 102.96 mins 5.7.24 MELD na- 7 OV 03.07.24- Pt well since last visit. Continues to have nausea and RUQ abdominal discomfort/pressure like fist pressing. States she takes Lactulose once a day and BM are normal. She was able to get the Xifaxan. Denies dizziness, weakness, confusion, and swelling. 06.07.24- MELDNa, 8 07.06.24 EGD, grade II esophageal varices. Completely eradicated. Banded. Non- bleeding gastric ulcer with no stigma of bleeding. Biopsied. Portal hypertensive gastropathy. No gross lesions in the first portion of the duodenum. Lesser curvature ulcer biopsy, negative H.Pylori. Chronic ulcer with gastritis. Continue pantoprazole 40 mg BID, start Carafate TID x 8 weeks. OV 07.15.24- Since recent EGD, difficulty swallowing and chest heaviness. Nausea and heartburn before or after meals. No acute concerns. Denies dizziness, weakness, confusion or swelling. Need refill of iron tabs. Patient taking PPI twice daily and sucralfate 09.20.24MELD na 6, Barium swallow 07.25.24 OV 09.28.24 Pt here for f/u and reports trouble swallowing. Dysphagia with solid food/liquid food and 1 time gummy was stuck in the throat. And denies any edema, confusion/brain fog or sleep i ssues. Continues taking pantoprazole, lactulose, and Xifaxan daily. EGD 11.09.24- - Grade II esophageal varices. Incompletely eradicated. Banded. - Portal hypertensive gastropathy. - Chronic duodenitis. Biopsied. no pathologic diagnosis. RUQ Liver US; Elastography 10.14.24- liver measures 16.8 cm. increased echogenicity consistent with fatty infiltration. Median liver stiffness measured 10 kPa F2-F3 Metavir score. LUQ ABD US- Mild splenomegaly, spleen measures 13.3 cm x 5.2 cm x 6.3 cm. Labs 3.8.25- INR 1.0. Sod 138. Creatinine 0.65. Bili 0.33. MELD 6 OV 3.13.25- Fatigued. D/C from speech therapy with some improvement in swallowing. Was given exercises to continue at home. Continued occasional heartburn, pantoprazole 40 BID an (more contentnot included)...[facility]05-12-2025 Consult note [facility] Medical Records Department [address] [place] [address] Pre-Anesthesia Evaluation 02/27/2519 MR#: [id number] Acct: [id number] Name: KRISTA CAMPBELL Rep #:[id number] : 1955 69 From: Suresh Buchanan MD PCP: Dr. Taty Julian MD Status: [facility] Race: C Location: [place] [address] ASA Classification* ASA Classification ASA Classification: 2 Assessment & Plan Anesthesia* Anesthesia Assessment Anesthesia Assessment: Discussed sedation and/or anesthesia options, risks, benefits, and alternatives with patient/parents/legal guardian/POA. Questions invited. The patient/parents/legal guardian/POA seems to understand and agrees to proceedwith anesthesia plan. Reviewed the physical assessment, medical history, allergy history and patient home medications list prior to surgery/procedure/anesthetic and documented any changes. Performed airway and anesthesia risk assessments. Anesthesia Type Anesthesia Type: MAC History Source History Obtained from:: Patient and Chart Anesthesia Focused Assessment* Temperature: 97.7 F Pulse Rate: 77 Blood Pressure: 102/65 Respiratory Rate: 18 Pulse Ox: 98 Oxygen Delivery Method: Room Air Airway Assessment Mouth opens: >3 cm Mallampati Score: I Teeth Condition: Dentures (Patient has full upper dentures. They are out.) Neck Range of motion (ROM): Full ROM Focused Labs Anesthesia Preop lab: CBC WBC 4.7 K/mm3 (4.4-11.0) 12/24/24 10:12/24/24 RBC 3.67 M/mm3 (4.2-5.4) L 12/24/24 10:12/24/24 Hgb 8.0 g/dL (12.0-15.0) L 12/24/24 10:12/24/24 Hct 29.6 % (37-47) L 12/24/24 10:26 12/24/24 Plt Count 68 K/mm3 (150-450) L 12/24/24 10:12/24/24 CHEMISTRY Potassium 4.1 mmol/L (3.3-5.1) 12/24/24 10:26 12/24/24 Sodium 138 mmol/L (133-145) 12/24/24 10:12/24/24 Magnesium 2.0 mg/dL (1.6-2.6) 01/19/23 05:35 01/19/23 BUN 12 mg/dL (4-19) 12/24/24 10:12/24/24 Creatinine 0.65 mg/dL (0.70-1.20) L 12/24/24 10: Glucose 282 mg/dL (70-99) H 12/24/24 10:12/24/24 POC Glucose 122 mg/dL (74-106) H 11/09/24 14:14 11/09/24 TSH 2.39 uIU/mL (0.358-3.74) 04/19/20 07:25 COAG PT 13.6 SECONDS (11.7-14.9) 12/24/24 10: Pre-Assessment Diagnosis/Proposed Procedure Planned Operative Procedure(s): EGD Anesthesia History Anesthesia History - water proofer: Anesthesia History - water proofer Hx Hospitalization No 02/23/25 09:02 Any Problems With Anesthesia No 02/23/25 09:02 Cholinesterase deficiency No 02/23/25 09:02 You/Your Family Experience No 02/23/25 09:02 fever (hyperthermia) with Relationship Recent Exposure to Contagious No 02/27/25 05:59 Disease Does patient have nerve No 02/23/25 09:02 stimulator Patient instructed to have device shut off --Does patient have Pacemaker No 02/27/25 05:59 or ICD? When Was Last Pacemaker Check QUESTION #4 FULL TEXT: You/Your Family Experience fever (hyperthermia) with Anesthesia Last Oral Intake Last Oral intake: Last Oral Intake NPO since 19:00 02/27/25 05:59 Meds taken in AM with sips of Yes 02/27/25 05:59 water? Meds patient instructed to take am of surgery Any additional information?: Yes Meds taken in AM with sips of water?: Yes PONV PONV - water proofer: PONV - water proofer Female Yes 02/23/25 09:02 HX of Motion Sickness No 02/23/25 09:02 HX of N/V After Surgery No 02/23/25 09:02 Non-Smoker Yes 02/23/25 09:02 Duration of Surgery greater No 02/23/25 09:02 than 60 minutes Number of Risk Factors 2 02/23/25 09:02 PONV Score Moderate Risk 02/23/25 09:02 Height & Weight Height & Weight: Anesthesia: Height & Weight Height 4 ft 11 in 02/27/25 05:59 Weight: 69.7 kg 02/27/25 05:59 Body Mass Index (BMI) 31.0 02/27/25 05:59 Respiratory Assessment Respiratory Assessment - water proofer: Respiratory Tract Infection Hx - water proofer Hx Respiratory Tract Infection No 02/23/25 09:02 STOP Sleep Apnea STOP Sleep Apnea - water proofer: STOP Sleep Apnea - water proofer Hx Hypertension Yes 02/23/25 09:02 Hx Sleep Apnea No 02/23/25 09:02 CPAP BIPAP Do you snore loudly (louder No 02/23/25 09:02 than talking or can be heard Do you often feel tired/ No 02/23/25 09:02 fatigued/ sleepy during daytime? Has anyone observed you stop No 02/23/25 09:02 breathing during sleep? STOP Results Negative 02/23/25 09:02 QUESTION #5 FULL TEXT : Do you snore loudly (louder than talking or can be heard through closeddoors)? 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 Specify any problems Hx of Preganancy in last 3 No 02/23/25 09:02 Months Nurse Filling Out Transfusion [facility] 02/23/25 09:02 & Questions: Date: 02/23/25 02/23/25 09:02 Time: 09:04 02/23/25 09:02 Patient unable to answer at this time (ie. 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 Hx Now Gestational Age (in weeks): EDC: Hx Hx Para Hx Section SAB No 11/07/24 08:57 Active Medications Active Medications: Current Medications Generic Name Dose Route Start Last Admin Trade Name Freq PRN Reason Stop Dose Admin Lactated Ringer's 1,000 mls @ 15 mls/hr 02/27/25 05:45 02/27/25 06:08 IV 15 mls/hr .Q48H WESLEY Administration PFSH Medical History Back pain Wears glasses Thyroid disease Gout Arthritis Anemia High cholesterol History of GI bleed History of diverticulitis Gastric reflux Former smoker History of edema History of echocardiogram History of stress test Hypertension Diabetes Migraines Home Medications ?Medication ?Instructions ?Recorded ?Last Taken ?Type rizatriptan 10 mg tablet 10 mg PO PRN PRN Migraine He adache 12/28/13 Unknown History Lactobacillus acidophilus 10 mg PO DAILY Check with pr imary 01/18/23 02/19/25 History (Acidophilus capsule) doctor allopurinol 100 mg tablet 100 mg PO DAILY Check with p rimary 01/18/23 02/26/25 History doctor cyclosporine 0.05 % eye drops in a 1 drp ophthalmic (e ye) BID health 01/18/23 02/26/25 History dropperette (Restasis) maintenance erythromycin 5 mg/gram (0.5 %) eye 1 applic ophthalmic (eye) QHS 01/18/23 02/26/25 History ointment health maintenance ezetimibe 10 mg tablet 10 mg PO DAILY Check with pr imary 01/18/23 02/26/25 Histo ry doctor fluorometholone 0.1 % eye 1 drp ophthalmic (eye) BID h ealth 01/18/23 02/26/25 History drops,suspension maintenance gabapentin 400 mg tablet 800 mg PO QHS health mainten ance 01/18/23 02/26/25 History galcanezumab-gnlm 120 mg/mL 120 mg subcut QMONTH Check with 01/18/23 02/24/25 History subcutaneous pen injector primary doctor (Emgality Pen) metformin 1,000 mg tablet 1,000 mg PO BID diabetic 12/1111/08/24 History multivitamin with minerals 2 tab PO DAILY Check with p rimary 01/18/23 02/19/25 History (Hair,Skin and Nails tablet) doctor elpdtnqfbnnn-Vk-tdtj-minerals 18 2 tab PO DAILY health maintenance 01/18/23 02/19/25 History mg-0.4 mg tablet vit C 250 mg-vit E 90 mg-zinc 40 1 tab PO BID Check wi th primary 01/18/23 U nknown History mg-copper 1 os-hfsqyh-lnggdc doctor capsule (PreserVision AREDS-2) magnesium 200 mg tablet 200 mg PO DAILY Check with p rimary 07/04/24 02/19/25 History doctor lactulose 20 gram/30 mL oral 20 g PO QDAY 07/15/2409/12 History solution spironolactone 25 mg tablet 25 mg PO DAILY 1 month #30 tabs 07/15/24 02/26/25 Rx rifaximin 550 mg tablet (Xifaxan) 550 mg PO BID 30 day s #60 tabs 09/28/24 02/26/25 Rx ascorbic acid (vitamin C) 500 mg 500 mg PO BID 1 month #60 tabs 12/29/24 02/19/25 Rx chewable tablet dulaglutide 3 mg/0.5 mL 4.5 mg subcut TH Check with 12/29/24 02/09/25 History subcutaneous pen injector primary doctor (Trulicity) elderberry fruit 350 mg capsule 700 mg PO QDAY 5 02/19/25 History ferrous sulfate 325 mg (65 mg 325 mg PO QDAY 1 month # 30 tabs 12/29/24 02/19/25 Rx iron) tablet levothyroxine 75 mcg tablet 75 mcg PO QDAY 1 month #30 tabs 12/29/24 02/27/25 Rx pantoprazole 40 mg tablet,delayed 40 mg PO QDAY 02/27/25 History release vit C 62.5 mg-vit D3 15 mcg-zinc 2 tab PO QDAY 5 02/19/25 History 2.75 mg-herbal no.358 chewable tablet (Immune Power) carvedilol 6.25 mg tablet 6.25 mg PO BID 1 month #60 t abs 01/19/25 02/27/25 Rx Allergy/AdvReac Type Severity Reaction Status Date / Time ciprofloxacin (From Cipro) Allergy Other Verified 02/27/25 05:56 ciprofloxacin HCl (From Allergy Other Verified 02/27/25 05:56 Cipro) metronidazole Allergy Other Verified 02/27/25 05:56 Penicillins (PCN) Allergy Other Verified 02/27/25 05:56 Sulfa (Sulfonamide Allergy Rash Verified 02/27/25 05:56 Antibiotics) Sntkulr-WPR-UiQ Reductase AdvReac Other Verified 02/27/25 05:56 Inhibitor Family History Grandfather Diabetes Grandmother Diabetes Father Heart problem Mother CVA (cerebral vascular accident) Surgical History History of esophagogastroduodenoscopy (EGD) Hx of esophagogastroduodenoscopy Hx of tonsillectomy History of Status post left foot surgery Social History Smoking Status: Never smoker alcohol intake: never substance use type: does not use Review of Systems (Anesthesia) ROS Narrative System reviewed and no additional complaints, except as documented. 02/27/25625 reji GOLDMAN> Date _ Suresh Buchanan MD Cosigner Signature: Date CC: ~ Signed [facility]03-13-2025 Evaluation note* Diagnosis Onset Date Resolution Status Admit Date Cirrhosis chronic December 29 8:39am Dysphagia chronic December 29 8:39am Esophageal varices chronic December 29, 2024 8:39am Thrombocytopenia acute February 5:20am Cirrhosis chronic February 27, 2025 5:20am Dysphagia chronic February 27, 2025 5:20am Esophageal varices chronic February 272024 5:20am Gastroparesis chronic February 27, 2 025 5:20am GI (gastrointestinal bleed) chronic February 27, 2025 5:20am [facility] Work Phone: 1(577) 992-620803-13-2025 Evaluation note* Diagnosis Onset Date Resolution Status Admit Date Cirrhosis chronic December 29 8:39am Dysphagia chronic December 29 8:39am Esophageal varices chronic December 29, 2024 8:39am Thrombocytopenia acute February 5:20am Cirrhosis chronic February 27, 2025 5:20am Dysphagia chronic February 27, 2025 5:20am Esophageal varices chronic February 272024 5:20am Gastroparesis chronic February 27, 2 025 5:20am GI (gastrointestinal bleed) chronic February 27, 2025 5:20am Cirrhosis chronic April 24, 2025 9:31am Esophageal varices chronic April 242024 9:31am [facility] Work Phone: 1(234) 190-925602-21-2025 Telephone encounter Note* Telephone Encounter - Diana Mcghee LPN - 12/09/2024 10:57 AM EST Images from the original note were not included. Electronic PA completed for trulicity. This was approved. Pharmacy notified. Prior authorization approved Payer: [employer] PBM Part D [phone] Note from payer: Request Reference Number: [id number]. TRULICITY INJ 4.5/0.5 is approved through 10/18/2025. Your patient may now fill this prescription and it will be covered. Approval Details Authorization number: [id number] Authorized from December 09, 2024 to October 18, 2025 Electronic appeal: Not supported View History Notes Time User Attachment Attachment received from payer. 12/09/2024 9:20 AM [facility], Rx Priorauth In Document Medication Being Authorized dulaglutide (TRULICITY) 4.5 mg/0.5 mL pen injector Inject 4.5 mg subcutaneously one time a week. Dispense: 6 mL Refills: 3 Start: 12/09/2024 Class: Normal Diagnoses: Type 2 diabetes mellitus without complication, without long-term current use of insulin (HCC) This order has been released to its destination. To be filled at: [facility] [id number] - [place] [address] [address] [facility] [phone] [facility]02-21-2025 Miscellaneous Notes* Telephone Encounter - Diana Mcghee LPN - 12/09/2024 10:57 AM EST Images from the original note were not included. Electronic PA completed for trulicity. This was approved. Pharmacy notified. Prior authorization approved Payer: [employer] P[employer] Part D [phone] Note from payer: Request Reference Number: [id number]. TRULICITY INJ 4.5/0.5 is approved through 10/18/2025. Your patient may now fill this prescription and it will be covered. Approval Details Authorization number: [id number] Authorized from December 09, 2024 to October 18, 2025 Electronic appeal: Not supported View History Notes Time User Attachment Attachment received from payer. 12/09/2024 9:20 AM [facility], Rx Priorauth In Document Medication Being Authorized dulaglutide (TRULICITY) 4.5 mg/0.5 mL pen injector Inject 4.5 mg subcutaneously one time a week. Dispense: 6 mL Refills: 3 Start: 12/09/2024 Class: Normal Diagnoses: Type 2 diabetes mellitus without complication, without long-term current use of insulin (HCC) This order has been released to its destination. To be filled at: e- [facility] [id number] - [place] [address] [address] [facility] [phone] documented in this encounterMem[facility]02[facility]25 History of Present illness Narrative* Taty Julian MD - 12/09/2024 8:40 AM EST Chief Complaint Patient presents with: F/U 6 Month HPI Kritsa Campbell is a 69 year old female who presents here today for a 6 month follow up. Pt here today for a routine follow up. GI/Uro - Follows with Gastro Dr. Yen and Dr. Cutris for cirrhosis and esophageal varices. Had EGD done on 11/09/24, with procedure every 3 months. Office received orders in September from [facility] for swallowing eval and FEES for dysphagia. GERD sx controlled with Protonix 40 mg 1 pill BID. Is taking Lact ulose 10 g TID for sirrhosis. Started on Aldactone 25 mg, 1 pill daily and Xifaxan 550 mg 1 pill BID. DM: Checks sugars once daily with FBS 150-220. Sugars have nanci higher recently. Denies any hypoglycemic episodes. 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 Follows with Eye Doctor. Taking Metformin 1,000 mg 1 pill BID and trulicity 3 mg weekly. Amaryl was d/clast visit due to low bs. Since going off medication has not had any further lows, but blood sugarsare higher. Lipid: Currently taking Zetia 10 mg daily. Tries to watch diet; portion sizes, eat more salads, vegetables, and limiting meat and sugar intake. Some activity, but tends to be more active during the summer months. Anemia: Hx of transfusions, taking Iron every other day. Follows with GI for cirrhosis and varices.Recent EGD done on 11/09/24. Thyroid: Currently taking Levothyroxine 88 mcg once daily. Denies any missed dosages, feels stable on regimen. Gout: Stable with Allopurinol [address]. Kulkarni, Podiatry with [facility]. Denies any recent flares. Migraines: Doing well on Gabapentin 400 mg 2 pills at bedtime, Emgality injections every month and Maxalt prn. Follows with Dr. Thapa, Neuro. Follows with Maria Esther Singh, had skin cancer removed from neck. Pt completed Medical Records Release [facility] during office visit. This was faxed to [phone]. HM - Declines Flu and Covid vaccine at this time. May decide to get this in the future through Pharmacy. Has Adv Dir/Living Will scanned into chart. RSV through Pharmacy due to Medicare. Past medical history, appointments, medications, allergies reviewed. Previous Medical History PAST MEDICAL HISTORY Diagnosis Date Arthritis in Hands Cervical disc disease Diabetes (HCC) Gout Macular degeneration Other forms of migraine Personal history of colonic polyps Snoring does not use C-pap Thyroid disease Previous Surgical History PAST SURGICAL HISTORY Procedure Laterality Date ABDOMINAL SURGERY HX DELIVERY ONLY , low cervical COLONOSCOPY 07/11/2022 repeat in 5 years COLONOSCOPY FLX DX W/COLLJ SPEC WHEN PFRMD 01/09/2010 Colonoscopy COLONOSCOPY FLX DX W/COLLJ SPEC WHEN PFRMD 01/15/2011 COLONOSCOPY FLX DX W/COLLJ SPEC WHEN PFRMD 03/27/2016 Colonoscopy COLONOSCOPY FLX DX W/COLLJ SPEC WHEN PFRMD 06/08/2017 Colonoscopy DILATION & CURETTAGE DX&/THER NONOBSTETRIC Dilation & curettage EGD W/O [facility] SPEC VARICIES INJ N/A 01/20/2023 [facility] EGD W/O [facility] SPEC VARICIES INJ N/A 04/08/2023 [facility] ESOPHAGOGASTRODUODENOSCOPY TRANSORAL DIAGNOSTIC 01/2004 EGD ESOPHAGOGASTRODUODENOSCOPY TRANSORAL DIAGNOSTIC 03/29/2018 EGD FRACTURE SURGERY LIG/TRNSXJ FLP TUBE ABDL/VAG APPR UNI/BI PAST SURGICAL HISTORY OF Left 07/07/2022 Left foot surgery with plates and screws placed STEREOTACTIC CORE BIOPSY 07/13/2007 LEFT BREAST- benign TONSILLECTOMY HX TONSILLECTOMY PRIMARY/SECONDARY <AGE 12 Family History FAMILY HISTORY Problem Relation Age of Onset Diabetes Mother Hypertension Mother Hypertension Father Diabetes Father Patient Allergies ALLERGIES Allergen Reactions Ggfuwuo-Vyt-Qze Red* Myalgia Knees shake, weak and joints ache Cipro [Ciprofloxaci* Hives Metronidazole Hives Penicillins Rash Age 19 -- rash all over, hives Sulfa (Sulfonamide * Rash Current Medications Current Outpatient Medications on File Prior to Visit Medication Sig levothyroxine (SYNTHROID) 88 mcg tablet Take 1 tablet by mouth once daily. Take on empty stomach. rifAXIMin (XIFAXAN) 550 mg tablet Take 550 mg by mouth two times a day. spironolactone (ALDACTONE) 25 mg tablet Take 25 mg by mouth once daily. Take half pill daily fexofenadine (JACQUELINE ALLERGY) 180 mg tablet Take 1 tablet by mouth once daily. metFORMIN (GLUCOPHAGE) 1,000 mg tablet Take 1 tablet by mouth two times a day with meals. pantoprazole DR (PROTONIX) 40 mg tablet Take 1 tablet by mouth two times a day. ezetimibe (ZETIA) 10 mg tablet Take 1 tablet by mouth once daily. dulaglutide (TRULICITY) 3 mg/0.5 mL pen injector Inject 3 mg subcutaneously one time a week. nadolol (CORGARD) 40 mg tablet Take 1 tablet by mouth once daily. allopurinol (ZYLOPRIM) 100 mg tablet Take 1 tablet by mouth once daily. ferrous sulfate 325 mg (65 mg iron) tablet Take 1 tablet by mouth once daily. Magnesium 250 mg tab Take 1 tablet by mouth twice daily. lactulose 10 gram/15 mL solution Take 30 mL by mouth. gabapentin (NEURONTIN) 400 mg capsule Take 1 capsule by mouth twice daily. vitamin C-biotin (VCRP-DVOQ-KJPYD, VIT C-BIOTIN,) 50 mg -1,250 mcg chew Take 2 tablets by mouth once daily. coenzyme Q10 (CO Q-10) 100 mg cap capsule Take 2 capsules by mouth once daily. EMGALITY PEN 120 mg/mL pen Inject 120 mg subcutaneously once every month. fluorometholone (FML LIQUID FILM) 0.1 % ophthalmic suspension cranberry fruit extract (CRANBERRY ORAL) Take by mouth. rizatriptan (MAXALT) 10 mg tablet Apple Cider Vinegar 300 mg tab Take 1 tablet by mouth twice daily. MV-MN/FOLIC ACID/CALCIUM/VIT K (ONE-A-DAY WOMEN'S 50 PLUS ORAL) Take by mouth. L.ACID/L.CASEI/B.BIF/B.MINDA/FOS (PROBIOTIC BLEND ORAL) Take by mouth. cycloSPORINE (RESTASIS) 0.05 % ophthalmic emulsion Use 1 Drop in both eyes twice daily. ERYTHROMYCIN BASE (ERYTHROMYCIN OPHTHALMIC) Use in eyes. VIT C/NARCISA AC/LUT/COPPER/ZNOX (PRESERVISION LUTEIN ORAL) Take 1 tablet by mouth twice daily. No current facility-administered medications on file prior to visit. Social History Social History Tobacco Use Smoking status: Former Current packs/day: 0.00 Average packs/day: 0.3 packs/day for 3.0 years (0.8 ttl pk-yrs) Types: Cigarettes Start date: 06/08/1972 Quit date: 06/08/1975 Years since quittin.5 Smokeless tobacco: Never Vaping Use Vaping status: Never Used Substance Use Topics Alcohol use: Yes Comment: rare, once a year Drug use: No EXAM: BP 106/64 (BP Site: Left Arm, BP Position: Sitting, BP Cuff Size: Regular Adult) Pulse 72 Resp 18 Wt 71.3 kg (157 lb 3 oz) LMP 01/31/2005 BMI 31.75 kg/m General Appearance: Well appearing, alert, in no acute distress, well-hydrated, well nourished.. Lungs: Lungs clear to auscultation. No wheezing, rhonchi, rales.. Heart: RRR without murmur, gallop, or rubs. No ectopy. Health Maintenance List RSV Vaccine(1 - Risk 60-74 years 1-dose series) Never done Diabetic Foot Exam due on 09/10/2023 Influenza Vaccine(1) due on 06/19/2024 Covid-19 Vaccine(2023- season) due on 06/19/2024 Advance Directive Discussion due on 10/19/2024 HbA1C due on 05/29/2025 Urine Albumin:Creatinine Ratio due on 06/02/2025 Annual PCP Team Chronic Disease Visit due on 06/07/2025 Depression Screening due on 06/07/2025 Anxiety Screening due on 06/07/2025 Mammogram Screening due on 06/17/2025 Dilated Retinal Exam due on 09/01/2025 LDL Cholesterol due on 11/29/2025 Colorectal Cancer Screening due on 07/11/2027 DTaP,Tdap,Td Vaccine(3 - Td or Tdap) due on 12/01/2028 Hepatitis B Vaccine Completed Bone Density Screening Completed Hepatitis A Vaccine Completed Hepatitis C Screening Completed Shingrix Vaccine Completed Pneumococcal Vaccine: 50+ Completed Cervical Cancer Screening Discontinued Data reviewed Appointment on 11/29/2024 Component Date Value Protein, Total 11/29/2024 7.2 Albumin 11/29/2024 4.4 Calcium, Total 11/29/2024 9.5 Bilirubin, Total 11/29/2024 0.4 Alkaline Phosphatase 11/29/2024 93 AST 11/29/2024 28 ALT 11/29/2024 22 Glucose 11/29/2024 153 (H) BUN 11/29/2024 11 Creatinine 11/29/2024 0.62 Sodium 11/29/2024 142 Potassium 11/29/2024 4.6 Chloride 11/29/2024 104 CO2 11/29/2024 25 Anion Gap 11/29/2024 13 Estimated Glomerular Kyle* 11/29/2024 97 Cholesterol, Total 11/29/2024 144 Triglyceride 11/29/2024 128 HDL Cholesterol 11/29/2024 41 Non HDL Cholesterol 11/29/2024 103 Fasting Time 11/29/2024 12 VLDL Cholesterol 11/29/2024 26 TC:HDL Ratio 11/29/2024 3.51 LDL Cholesterol 11/29/2024 77 LDL:HDL Ratio 11/29/2024 1.88 Hemoglobin A1C 11/29/2024 6.9 (H) Estimated Average Glucose 11/29/2024 151 WBC 11/29/2024 4.95 RBC 11/29/2024 3.78 (L) Hemoglobin 11/29/2024 8.4 (L) Hematocrit 11/29/2024 30.8 (L) MCV 11/29/2024 81.5 MCH 11/29/2024 22.2 (L) MCHC 11/29/2024 27.3 (L) RDW-CV 11/29/2024 15.9 (H) Platelet Count 11/29/2024 82 (L) MPV 11/29/2024 11.8 Neutrophils % 11/29/2024 61.6 Abs Neut 11/29/2024 3.05 Lymphocytes % 11/29/2024 23.8 Abs Lymph 11/29/2024 1.18 Monocytes % 11/29/2024 7.7 Abs [place] 11/29/2024 0.38 Eosinophils % 11/29/2024 5.5 Abs Eosin 11/29/2024 0.27 Basophils % 11/29/2024 1.0 Abs Baso 11/29/2024 0.05 Immature Granulocytes % 11/29/2024 0.4 Abs Immature Gran 11/29/2024 <0.03 NRBC 11/29/2024 0.0 Absolute nRBC 11/29/2024 <0.01 Diff Type 11/29/2024 Auto Uric Acid 11/29/2024 5.3 TSH 11/29/2024 0.226 (L) ASSESSMENT/PLAN: 1. Type 2 diabetes mellitus without complication, without long-term current use of insulin (HCC) - ICD9: 250.00, ICD10: E11.9 (primary diagnosis) - Controlled - Continue current medications - Increase dulaglutide (Trulicity) - COMPREHENSIVE METABOLIC PANEL - LIPID PANEL BASIC - HEMOGLOBIN A1C - ALBUMIN/CREATININE RATIO, URINE - EZETIMIBE 10 MG TABLET - DULAGLUTIDE 3 MG/0.5 ML SUBCUTANEOUS PEN INJECTOR - METFORMIN 1,000 MG TABLET - DULAGLUTIDE 4.5 MG/0.5 ML SUBCUTANEOUS PEN INJECTOR 2. Hypothyroidism, unspecified type - ICD9: 244.9, ICD10: E03.9 - Instructed patient on importance of taking on an empty stomach either first thing in the morning or at bedtime. - continue current dose of Synthroid 0.088 mg - THYROID STIMULATING HORMONE 3. Hyperlipidemia, mixed - ICD9: 272.2, ICD10: E78.2 - Controlled - Continue current medications - Counseled on healthy diet and regular exercise - COMPREHENSIVE METABOLIC PANEL - LIPID PANEL BASIC - EZETIMIBE 10 MG TABLET 4. Gout, unspecified cause, unspecified chronicity, unspecified site - ICD9: 274.9, ICD10: M10. - URIC ACID 5. Intractable migraine without aura and without status migrainosus - ICD9: 346.11, ICD10: G43.019 6. Anemia, unspecified type - ICD9: 285.9, ICD10: D64.9 Continue to monitor; follow with GI - COMPLETE BLOOD COUNT AND DIFFERENTIAL - FERROUS SULFATE 325 MG (65 MG IRON) TABLET 7. Elevated LFTs - ICD9: 790.6, ICD10: R79.89 - COMPREHENSIVE METABOLIC PANEL 8. Esophageal varices without bleeding, unspecified esophageal varices type (HCC) - ICD9: 456.1, ICD10: I85.00 9. Globus sensation - ICD9: 784.99, ICD10: R09.A2 - PANTOPRAZOLE 40 MG TABLET,DELAYED RELEASE 10. Hepatic cirrhosis, unspecified hepatic cirrhosis type, unspecified whether ascites present (HCC) - ICD9: 571.5, ICD10: K74.60 Follow with GI Follow up in 3 months Medical Decision Making: Problems: Moderate: 2+ stable chronic illnesses and 1+ chronic illnesses with change Data: Unique test result(s) reviewed: 3+ Unique test(s) ordered: 3+ Risk: Moderate: Drug management Medical Decision Making Level: 4 - Moderate Taty Julian MD documented in this encounterMem[facility] Hospital02-21-2025 NoteHNO ID: [id number] Author: TATY JULIAN MD Service: ? Author Type: Physician Type: Progress Notes Filed: 12/09/2024 17:32 Note Text: Chief Complaint Patient presents with: F/U 6 Month HPI Krista Campbell is a 69 year old female who presents here today for a 6 month follow up. Pt here today for a routine follow up. GI/Uro - Follows with Gastro Dr. Yen and Dr. Curtis for cirrhosis and esophageal varices. Had EGD done on 11/09/24, with procedure every 3 months. Office received orders in September from [facility] for swallowing eval and FEES for dysphagia. GERD sx controlled with Protonix 40 mg 1 pill BID. Is taking Lactulose 10 g TID for sirrhosis. Started on Aldactone 25 mg, 1 pill daily and Xifaxan 550 mg 1 pill BID. DM: Checks sugars once daily with FBS 150-220. Sugars have nanci higher recently. Denies any hypoglycemic episodes. 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 Follows with Eye Doctor. Taking Metformin 1,000 mg 1 pill BID and trulicity 3 mg weekly. Amaryl was d/c last visit due to low bs. Since going off medication has not had any further lows, but blood sugars are higher. Lipid: Currently taking Zetia 10 mg daily. Tries to watch diet; portion sizes, eat more salads, vegetables, and limiting meat and sugar intake. Some activity, but tends to be more active during the summer months. Anemia: Hx of transfusions, taking Iron every other day. Follows with GI for cirrhosis and varices. Recent EGD done on 11/09/24. Thyroid: Currently taking Levothyroxine 88 mcg once daily. Denies any missed dosages, feels stable on regimen. Gout: Stable with Allopurinol 300 mg daily[address]. Kulkarni, Podiatry with [facility]. Denies any recent flares. Migraines: Doing well on Gabapentin 400 mg 2 pills at bedtime, Emgality injections every month and Maxalt prn. Follows with Dr. Thapa, Neuro. Follows with Maria Esther Singh, had skin cancer removed from neck. Pt completed Medical Records Release [facility] during office visit. This was faxed to [phone]. - Declines Flu and Covid vaccine at this time. May decide to get this in the future through Pharmacy. Has Adv Dir/Living Will scanned into chart. RSV through Pharmacy due to Medicare. Past medical history, appointments, medications, allergies reviewed. Previous Medical History PAST MEDICAL HISTORY Diagnosis Date Arthritis in Hands Cervical disc disease Diabetes (HCC) Gout Macular degeneration Other forms of migraine Personal history of colonic polyps Snoring does not use C-pap Thyroid disease Previous Surgical History PAST SURGICAL HISTORY Procedure Laterality Date ABDOMINAL SURGERY HX DELIVERY ONLY , low cervical COLONOSCOPY 07/11/2022 repeat in 5 years COLONOSCOPY FLX DX W/COLLJ SPEC WHEN PFRMD 01/09/2010 Colonoscopy COLONOSCOPY FLX DX W/COLLJ SPEC WHEN PFRMD 01/15/2011 COLONOSCOPY FLX DX W/COLLJ SPEC WHEN PFRMD 03/27/2016 Colonoscopy COLONOSCOPY FLX DX W/COLLJ SPEC WHEN PFRMD 06/08/2017 Colonoscopy DILATION AND CURETTAGE DXAND/THER NONOBSTETRIC Dilation AND curettage EGD W/O [facility] SPEC VARICIES INJ N/A 01/20/2023 [facility] EGD W/O [facility] SPEC VARICIES INJ N/A 04/08/2023 [facility] ESOPHAGOGASTRODUODENOSCOPY TRANSORAL DIAGNOSTIC 01/2004 EGD ESOPHAGOGASTRODUODENOSCOPY TRANSORAL DIAGNOSTIC 03/29/2018 EGD FRACTURE SURGERY LIG/TRNSXJ FLP TUBE ABDL/VAG APPR UNI/BI PAST SURGICAL HISTORY OF Left 07/07/2022 Left foot surgery with plates and screws placed STEREOTACTIC CORE BIOPSY 07/13/2007 LEFT BREAST- benign TONSILLECTOMY HX TONSILLECTOMY PRIMARY/SECONDARY Family History FAMILY HISTORY Problem Relation Age of Onset Diabetes Mother Hypertension Mother Hypertension Father Diabetes Father Patient Allergies ALLERGIES Allergen Reactions Prhsoud-Svu-Bno Red* Myalgia Knees shake, weak and joints ache Cipro [Ciprofloxaci* Hives Metronidazole Hives Penicillins Rash Age 19 -- rash all over, hives Sulfa (Sulfonamide * Rash Current Medications Current Outpatient Medications on File Prior to Visit Medication Sig levothyroxine (SYNTHROID) 88 mcg tablet Take 1 tablet by mouth once daily. Take on empty stomach. rifAXIMin (XIFAXAN) 550 mg tablet Take 550 mg by mouth two times a day. spironolactone (ALDACTONE) 25 mg tablet Take 25 mg by mouth once daily. Take half pill daily fexofenadine (JACQUELINE ALLERGY) 180 mg tablet Take 1 tablet by mouth once daily. metFORMIN (GLUCOPHAGE) 1,000 mg tablet Take 1 tablet by mouth two times a day with meals. pantoprazole DR (PROTONIX) 40 mg tablet Take 1 tablet by mouth two times a day. ezetimibe (ZETIA) 10 mg tablet Take 1 tablet by mouth once daily. dulaglutide (TRULICITY) 3 mg/0.5 mL pen injector Inject 3 mg subcutaneously one time a week. nadolol (CORGARD) 40 mg tablet Take 1 tablet by mouth once daily. allopurinol (ZYLOPRIM) 100 mg tablet Take 1 tabl (more content not included)... [facility]01-23-2025 Telephone encounter Note* Telephone Encounter - Ashley Aguilar MA - 11/10/2024 11:36 AM EST Last ov- 03/15/24 Next ov- 03/15/25 [id number] Miscellaneous Notes* Telephone Encounter - Ashley Aguilar MA - 11/10/2024 11:36 AM EST Last ov- 03/15/24 Next ov03/15/25 documented in this [facility]01-22-2025 Evaluation note* Diagnosis Onset Date Resolution Status Admit Date Cirrhosis chronic November 09, 2024 1:48pm Esophageal varices chronic Januar y 2024 1:48pm GI (gastrointestinal bleed) chronic November 09, 2024 1:48pm Cirrhosis chronic December 29 8:39am Dysphagia chronic December 29 8:39am Esophageal varices chronic December 29, 2024 8:39am Thrombocytopenia acute February 5:20am Cirrhosis chronic February 27, 2025 5:20am Dysphagia chronic February 27, 2025 5:20am Esophageal varices chronic February 272024 5:20am Gastroparesis chronic February 27, 5:20am GI (gastrointestinal bleed) chronic February 27, 2025 5:20am [facility] Work Phone: 1(728) 522-145801-22-2025 [facility] Medical Records Department [address] [place] [id number] History Physical Exam 11/09/24 1410 MR#: [id number] Acct: [id number] Name: KRISTA CAMPBELL Rep #: [id number] : 1955 69 From: Toño Friend DO PCP: Dr. Taty Julian MD Status:[facility] Location: [place] [address] HPI - General General Date of Admission: 11/09/24 Date of Service: 11/09/24 Chief Complaint: varcies HPI Narrative KRISTA CAMPBELL, is a 69 F who presents surveillance of her esophageal varices. *[facility] hospitalization 4.12.11-01.21.23 for upper GIB with hematemesis with nausea and weakness. GI consulted .01.08. CT abd/pel .12.11 hepatomegaly with cirrhotic changes; stool throughout colon; enhancing nodule of duodenum [id number]. EGD .01.08 five columns oozing grade III varices upper/middle/lower esophagus, banded; three bleeding AVM in stomach; one non-bleeding duodenal ulcer. No specimens collected MRI 01.21.23 cirrhotic liver with splenomegaly; duodenal enhancement measuring 1.5cm. OV 6..23 with acidic stomach for which she has used PPI for 10 years. With lactulose BM daily, loose. reports forgetfulness. Denies sleep disturbance, jaundice, bleeding, pruritis. US 6.15.23 without ascites. EGD 04.08.2323 Grade II varices of middle/lower third esophagus, banded; small hiatal hernia; erythema with bleeding on lesser curvature of stomach, gastritis; 5mm mucosal polypoid OV 7.10.23 with improvement of nausea frequency. She did reduce lactulose QD with 2-3 BM/day. Confusion/brain fog has improved per . Notes increased cough with liquids but not consistently. Continues with nadolol and PPI EGD 08.10.23- Grade II esophageal varices, incompletely eradicated. Banded; small amount of food in stomach. No specimines collected. OV 11..23- Pt is doing well since last visit. Reports intermittent postprandial RUQ pain and nausea. Takes Lactulose QD with 2-3 complete BM a day. Denied any edema, confusion/ brain fog or issues with sleep. Continues PPI with minimal heartburn. MELD Na score is 8. C/o mild upper quadrant abdominal pain adjacent with the food on lactulose but lactulose makes her more nauseous but no vomiting, burping and gaseous feeling. OV 2.14.24- Nausea, indigestion, and upper mid to LUQ abdomen abdominal pain after eating certain foods in the evening, attempting keep away from triggers. She states that food stays longer with burping and air/gas. Occasional Tums PRN with success. Nausea after taking lactulose improved. Loose stool about once daily. She takes lactulose 30 mL once daily. Mild swelling in feet. Gabapentin prescribed by neurologist effective sleep aide. Denies confusion, brain fog and BLE edema. Received correspondence from medical insurance prior auth needed Xifaxan through [employer]. CT abd/pel w/wo 12.16.23- Hepatomegaly and diffuse fatty infiltration of the liver Gastric emptying study .11.11- Abnormal, 102.96 mins 5..24 MELD na- 7 OV 5..24- Pt well since last visit. Continues to have nausea and RUQ abdominal discomfort/pressure like fist pressing. States she takes Lactulose once a day and BM are normal. She was able to get the Xifaxan. Denies dizziness, weakness, confusion, and swelling. 08.20.24- MELDNa, 8 07.06.24 EGD, grade II esophageal varices. Completely eradicated. Banded. Non- bleeding gastric ulcer with no stigma of bleeding. Biopsied. Portal hypertensive gastropathy. No gross lesions in the first portion of the duodenum. Lesser curvature ulcer biopsy, negative H.Pylori. Chronic ulcer with gastritis. Continue pantoprazole 40 mg BID, start Carafate TID x 8 weeks. OV 07.15.24- Since recent EGD, difficulty swallowing and chest heaviness. Nausea and heartburn before or after meals. No acute concerns. Denies dizziness, weakness, confusion or swelling. Need refill of iron tabs. Patient taking PPI twice daily and sucralfate 09.20.24MELD na 6, Barium swallow 07.25.24 OV 09.28.24 Pt here for f/u and reports trouble swallowing. Dysphagia with solid food/liquid food and 1 time gummy was stuck in the throat. And denies any edema, confusion/brain fog or sleep issues. Continues taking pantoprazole, lactulose, and Xifaxan daily. [facility] Medical History Back pain Wears glasses Thyroid disease Gout Arthritis Anemia High cholesterol History of GI bleed History of diverticulitis Gastric reflux Former smoker History of edema History of echocardiogram History of stress test Hypertension Diabetes Migraines Home Medications ???Medication ???Instructions ???Recorded ???Last Taken ???Type rizatriptan 10 mg tablet 10 mg PO PRN PRN Migraine Headache 12/28/13 Unknown History Lactobacillus acidophilus 10 mg PO DAILY Check with primary 01/18/23 07/02/24 History (Acidophilus capsule) doctor rodríguez (more content not included)...[facility]12-17-2024 Telephone encounter Note* Telephone Encounter - Carmen Mckeon MA - 10/04/2024 12:01 PM EST Order signed and faxed back to [facility] at [phone]. Carmen Mckeon [facility] Miscellaneous Notes* Telephone Encounter - Carmen Mckeon MA - 10/04/2024 12:01 PM EST Order signed and faxed back to [facility] at [phone]. Carmen Mckeon MA * Telephone Encounter - Vivien Sharma MA - 10/04/2024 9:26 AM EST Office received order for pt to have Outpatient swallowing-eval and treat and FEES done for dysphagia at [facility] point. Orders needs signed and faxed. Vivien Sharma MA documented in this encounterMem[facility] Hospital12-17-2024 Telephone encounter Note * Telephone Encounter - Vivien Sharma MA - 10/04/2024 9:26 AM EST Office received order for pt to have Outpatient swallowing-eval and treat and FEES done for dysphagia at [facility]. Orders needs signed and faxed. Vivien Sharma MA [facility]12[facility] Evaluation note* Diagnosis Onset Date Resolution Status Admit Date Cirrhosis chronic September 28, 2024 9:19am Dysphagia chronic September 28, 2024 9:19am Esophageal varices chronic Decemb er 2023 9:19am Cirrhosis chronic November 09, 2024 1:48pm Esophageal varices chronic Januar y 2024 1:48pm GI (gastrointestinal bleed) chronic November 09, 2024 1:48pm Cirrhosis chronic December 29 8:39am Dysphagia chronic December 29 8:39am Esophageal varices chronic December 29, 2024 8:39am [facility] Work Phone: 1(106) 839-501309-03-2024 Telephone encounter Note* Telephone Encounter - Rosalva Umanzor LPN - 06/21/2024 3:22 PM EDT Patient notified previously, appointment has been already scheduled for this. [facility]09[facility]03[facility]24 Miscellaneous Notes* Telephone Encounter - Rosalva Umanzor LPN - 06/21/2024 3:22 PM EDT Patient notified previously, appointment has been already scheduled for this. * Telephone Encounter - Isrrael Bruner APRN.CNP - 06/21/2024 2:32 PM EDT Please let the patient know that her screening mammogram does not show any significant mass or other findings but the radiologist wants to get a better look at the left breast. Additional imaging wasordered. Isrrael Bruner APRN.CNP documented in [facility] encounterMem[facility] Telephone encounter Note * Telephone Encounter - Isrrael Bruner APRN.CNP - 06/21/2024 2:32 PM EDT Please let the patient know that her screening mammogram does not show any significant mass or other findings but the radiologist wants to get a better look at the left breast. Additional imaging wasordered. Isrrael Bruner APRN.CNP [facility]09-03-2024 Note* Letter - Coordinator, Mammography - 06/21/2024 12:24 PM EDT June 21, 2024 PID: [id number] Krista Campbell [address] [place] [address] Dear Ms. Campbell, Your recent breast imaging exam on 06/17/2024 showed a possible finding that requires additional imaging studies for a complete evaluation. Most such findings are probably benign (not cancer). Breast tissue can be either dense or not dense. Dense tissue makes it harder to find breast cancer on a mammogram and also raises the risk of developing breast cancer. Your breast tissue is not dense. Talk to your healthcare provider about breast density, risks for breast cancer, and your individual situation. If you have a healthcare provider who ordered/prescribed your screening mammogram: Please call [phone] or EXT: [phone] to schedule an appointment for your additional imaging (if youhave not already done so). If you DO NOT have a healthcare provider (ie you did not have an order/prescription for your screening mammogram): Please call to schedule an appointment for your additional imaging (if you have not already done so). You must have an order/prescription from your physician when calling to schedule your appointment. If your order/prescription is not electronic, you must bring the hard copy with you on the day of your exam to avoid delays. Your imaging studies and reports are kept on file at [facility] as part of your permanent medical record, and are available for your continuing care. Thank you for allowing us to help in meeting your health care needs. Sincerely, Dr. Hernandez Interpreting Radiologist [facility] (Additional imaging) [facility]09-03[facility]24 Miscellaneous Notes* Letter - Coordinator, Mammography - 06/21/2024 12:24 PM EDT June 21, 2024 PID: [id number] Krista Campbell [address] [place] [address] Dear Ms. Campbell, Your recent breast imaging exam on 06/17/2024 showed a possible finding that requires additional imaging studies for a complete evaluation. Most such findings are probably benign (not cancer). Breast tissue can be either dense or not dense. Dense tissue makes it harder to find breast cancer on a mammogram and also raises the risk of developing breast cancer. Your breast tissue is not dense. Talk to your healthcare provider about breast density, risks for breast cancer, and your individual situation. If you have a healthcare provider who ordered/prescribed your screening mammogram: Please call [phone] or EXT: [phone] to schedule an appointment for your additional imaging (if youhave not already done so). If you DO NOT have a healthcare provider (ie you did not have an order/prescription for your screening mammogram): Please call to schedule an appointment for your additional imaging (if you have not already done so). You must have an order/prescription from your physician when calling to schedule your appointment. If your order/prescription is not electronic, you must bring the hard copy with you on the day of your exam to avoid delays. Your imaging studies and reports are kept on file at [facility] as part of your permanent medical record, and are available for your continuing care. Thank you for allowing us to help in meeting your health care needs. Sincerely, Dr. Hernandez Interpreting Radiologist [facility] (Additional imaging) documented in this encounterMemorial Hospital08-30-2024 History of Present illness Narrative* Anjali Carreon RT(Judah) - 06/17/2024 12:30 PM EDT Radiology Service Progress Note PATIENT NAME: Krista Campbell DATE OF SERVICE: June 17, 2024 TIME: 2:23 PM PATIENT IDENTITY VERIFICATION COMPLETED USING TWO (2) IDENTIFIERS: Name and Date of confirmedby patient verbally. FALL SCREENING: Has the patient had 2 falls in the last year or 1 fall with injury or currently using an Ambulatory Assistive Device (Walker, Cane, Wheelchair, Crutches, etc.)? No PATIENT GENDER DATA: Female. status: : No status: NO. PATIENT RELEVANT IMPLANT DATA REVIEWED: Not Applicable PATIENT PRESENTS WITH AN IMPLANTABLE OR ATTACHED MANAGER IN TRAINING: No RADIOLOGY DEPARTMENT: Mammography PERIPHERAL IV DATA: Not applicable SIGNED BY: RT Florence(Judah) June 17, 2024 2:23 PM documented in this encounterMemorial Hospital08-21-2024 History of Present illness Narrative* Bill Kulkarni Jr., MINDY - 06/08/2024 8:57 AM EDT Gout Patient is a pleasant 68-year-old diabetic female following up today on ight first MPJ gout. She states that in the last year she is really been doing quite well. She has had 2 flareups of gout and been using her topical Voltaren to assist. The topical Voltaren does help with her acute's flareups and overall she thinks things are going okay. She has been compliantly taking her 100 mg daily of allopurinol. December uric acid 5.4. May 2024 uric acid 5.7. Physical Vascular: DP PT pulses are intact. Derm: No erythema no open wounds no ulcers no deep nodules. Can easily wiggle ankles and midtarsal. No pain to the first MPJ today despite some mild prominence. MPJ range of motion is full without any clicking or catching. Assessment and plan Patient is a pleasant type II diabetic female with chronic well-controlled gout. Did review her labs and uric acid today both are below 6 which is up titration goal. -At this time did continue her dosing of allopurinol. Prescription for the next 90 days at 100 mg once daily for 90 days 90 tabs 3 refills. -Could consider down titrating her allopurinol again to either half or none. Low medical complexity decision making based on chronicity. Follow-up in 1 year for annual dosing documented in this [id number] History of Present illness Narrative* Taty Julian MD - 06/07/2024 9:20 AM EDT Chief Complaint Patient presents with: F/U 6 Month HPI Krista Campbell is a 68 year old female who presents here today for 6 month follow up. Pt here today with her spouse for routine follow up. Labs completed, wants copy of labs. No bowel, Gi, or urinary issues. Notes Urine test shows infection and can be treated with Macrobid.Follows with Gastro Dr. Yen. Hx of elevated LFT. GERD sx controlled with Protonix 40 mg 1 pill BID. Is taking Lactulose 10 g TID for sirrhosis. Started on Aldactone 25 mg, half pill daily and Xifaxan 550 mg 1 pill BID. DM: Checks BS once daily with FBS 135-200. Denies any hypoglycemic episodes. 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 Taking Metformin 1,000 mg 1 pill BID andtrulicity 3 mg weekly. Amaryl was d/c last visit d.t low bs. Since going off medication her sugars have been elevated. Lipid: Taking Zetia 10 mg daily. Tries to watch diet; portion sizes, more salads, vegetables, limiting meat and sugar intake. Notes some exercise, has a puppy which keeps her busy. Anemia: hx of transfusions, taking Iron once a day. Follows with GI for cirrhosis and varices. Not sure when her next EGD will be scheduled. Thyroid: Taking levothyroxine 88 mcg daily which was increased last visit. No missed dosages. Gout: Stable with Allopurinol 300 [address]. Barton. Denies any recent flares. Migraines: Doing well on Gabapentin 400 mg 2 pills at bedtime, Emgality injections every month and Maxalt prn. Follows with Dr. Thapa, Neuro. Follows with [facility] Esther Singh, had skin cancer removed from neck. HM - Depression/Anxiety Screening negative. Discussed Covid vaccine, will get when new one comes out. RSV vaccine through Pharmacy due to medicare insurance. Past medical history, appointments, medications, allergies reviewed. Previous Medical History PAST MEDICAL HISTORY No date: Arthritis Comment: in Hands No date: Cervical disc disease No date: Diabetes (HCC) No date: Gout No date: Macular degeneration No date: Other forms of migraine No date: Personal history of colonic polyps No date: Snoring Comment: does not use C-pap No date: Thyroid disease Previous Surgical History PAST SURGICAL HISTORY No date: ABDOMINAL SURGERY HX No date: DELIVERY ONLY Comment: , low cervical 07/11/2022: COLONOSCOPY Comment: repeat in 5 years 01/09/2010: COLONOSCOPY FLX DX W/COLLJ SPEC WHEN PFRMD Comment: Colonoscopy 01/15/2011: COLONOSCOPY FLX DX W/COLLJ SPEC WHEN PFRMD 03/27/2016: COLONOSCOPY FLX DX W/COLLJ SPEC WHEN PFRMD Comment: Colonoscopy 06/08/2017: COLONOSCOPY FLX DX W/COLLJ SPEC WHEN PFRMD Comment: Colonoscopy No date: DILATION & CURETTAGE DX&/THER NONOBSTETRIC Comment: Dilation & curettage 01/20/2023: EGD W/O [facility] SPEC VARICIES INJ; N/A Comment: [facility] 04/08/2023: EGD W/O [facility] SPEC VARICIES INJ; N/A Comment: [facility] 01/2004: ESOPHAGOGASTRODUODENOSCOPY TRANSORAL DIAGNOSTIC Comment: EGD 03/29/2018: ESOPHAGOGASTRODUODENOSCOPY TRANSORAL DIAGNOSTIC Comment: EGD No date: FRACTURE SURGERY No date: LIG/TRNSXJ FLP TUBE ABDL/VAG APPR UNI/BI 07/07/2022: PAST SURGICAL HISTORY OF; Left Comment: Left foot surgery with plates and screws placed 07/13/2007: STEREOTACTIC CORE BIOPSY Comment: LEFT BREAST- benign No date: TONSILLECTOMY HX No date: TONSILLECTOMY PRIMARY/SECONDARY <AGE 12 Family History FAMILY HISTORY Problem Relation Age of Onset Diabetes Mother Hypertension Mother Hypertension Father Diabetes Father Patient Allergies ALLERGIES Allergen Reactions Pxvprbw-Urc-Yyh Red* Myalgia Knees shake, weak and joints ache Cipro [Ciprofloxaci* Hives Metronidazole Hives Penicillins Rash Age 19 -- rash all over, hives Sulfa (Sulfonamide * Rash Current Medications Current Outpatient Medications on File Prior to Visit Medication Sig rifAXIMin (XIFAXAN) 550 mg tablet Take 550 mg by mouth two times a day. spironolactone (ALDACTONE) 25 mg tablet Take 25 mg by mouth once daily. Take half pill daily fexofenadine (JACQUELINE ALLERGY) 180 mg tablet Take 1 tablet by mouth once daily. metFORMIN (GLUCOPHAGE) 1,000 mg tablet Take 1 tablet by mouth two times a day with meals. pantoprazole DR (PROTONIX) 40 mg tablet Take 1 tablet by mouth two times a day. ezetimibe (ZETIA) 10 mg tablet Take 1 tablet by mouth once daily. dulaglutide (TRULICITY) 3 mg/0.5 mL pen injector Inject 3 mg subcutaneously one time a week. levothyroxine (SYNTHROID) 88 mcg tablet Take 1 tablet by mouth once daily. Take on empty stomach. nadolol (CORGARD) 40 mg tablet Take 1 tablet by mouth once daily. allopurinol (ZYLOPRIM) 100 mg tablet Take 1 tablet by mouth once daily. ferrous sulfate 325 mg (65 mg iron) tablet Take 1 tablet by mouth once daily. Magnesium 250 mg tab Take 1 tablet by mouth twice daily. lactulose 10 gram/15 mL solution Take 30 mL by mouth. triamcinolone (KENALOG) 0.025 % cream Apply to affected area twice daily. gabapentin (NEURONTIN) 400 mg capsule Take 1 capsule by mouth twice daily. vitamin C-biotin (FOZR-JWGR-IIMHK, VIT C-BIOTIN,) 50 mg -1,250 mcg chew Take 2 tablets by mouth once daily. coenzyme Q10 (CO Q-10) 100 mg cap capsule Take 2 capsules by mouth once daily. EMGALITY PEN 120 mg/mL pen Inject 120 mg subcutaneously once every month. fluorometholone (FML LIQUID FILM) 0.1 % ophthalmic suspension cranberry fruit extract (CRANBERRY ORAL) Take by mouth. rizatriptan (MAXALT) 10 mg tablet Apple Cider Vinegar 300 mg tab Take 1 tablet by mouth twice daily. MV-MN/FOLIC ACID/CALCIUM/VIT K (ONE-A-DAY WOMEN'S 50 PLUS ORAL) Take by mouth. L.ACID/L.CASEI/B.BIF/B.MINDA/FOS (PROBIOTIC BLEND ORAL) Take by mouth. cycloSPORINE (RESTASIS) 0.05 % ophthalmic emulsion Use 1 Drop in both eyes twice daily. ERYTHROMYCIN BASE (ERYTHROMYCIN OPHTHALMIC) Use in eyes. VIT C/NARCISA AC/LUT/COPPER/ZNOX (PRESERVISION LUTEIN ORAL) Take 1 tablet by mouth twice daily. No current facility-administered medications on file prior to visit. Social History Social History Tobacco Use Smoking status: Former Current packs/day: 0.00 Average packs/day: 0.3 packs/day for 3.0 years (0.8 ttl pk-yrs) Types: Cigarettes Start date: 06/08/1972 Quit date: 06/08/1975 Years since quittin.0 Smokeless tobacco: Never Vaping Use Vaping status: Never Used Substance Use Topics Alcohol use: Yes Comment: rare, once a year Drug use: No EXAM: BP 102/64 (BP Site: Left Arm, BP Position: Sitting, BP Cuff Size: Regular Adult) Pulse 82 Resp 16 Wt 69.4 kg (153 lb) LMP 01/31/2005 BMI 30.90 kg/m General Appearance: Well appearing, alert, in no acute distress, well-hydrated, well nourished.. Lungs: Lungs clear to auscultation. No wheezing, rhonchi, rales.. Heart: RRR without murmur, gallop, or rubs. No ectopy. Health Maintenance List Depression Screening Never done Anxiety Screening Never done RSV Vaccine(1 - 1-dose 60+ series) Never done Diabetic Foot Exam due on 09/10/2023 Covid-19 Vaccine(2022- season) due on 03/06/2024 Mammogram Screening due on 04/15/2024 Influenza Vaccine(1) due on 06/19/2024 HbA1C due on 12/03/2024 Annual PCP Team Chronic Disease Visit due on 12/11/2024 Dilated Retinal Exam due on 02/22/2025 Urine Albumin:Creatinine Ratio due on 06/02/2025 LDL Cholesterol due on 06/02/2025 Colorectal Cancer Screening due on 07/11/2027 DTaP,Tdap,Td Vaccine(3 - Td or Tdap) due on 12/01/2028 Hepatitis B Vaccine Completed Bone Density Screening Completed Hepatitis A Vaccine Completed Advance Directive Discussion Completed Hepatitis C Screening Completed Shingrix Vaccine Completed Pneumococcal Vaccine: 65+ Completed Cervical Cancer Screening Discontinued Data reviewed Appointment on 06/02/2024 Component Date Value Cholesterol, Total 06/02/2024 150 Triglyceride 06/02/2024 173 (H) HDL Cholesterol 06/02/2024 37 (L) Non HDL Cholesterol 06/02/2024 113 Fasting Time 06/02/2024 12 VLDL Cholesterol 06/02/2024 35 (H) TC:HDL Ratio 06/02/2024 4.05 LDL Cholesterol 06/02/2024 78 LDL:HDL Ratio 06/02/2024 2.11 Protein, Total 06/02/2024 7.1 Albumin 06/02/2024 4.2 Calcium, Total 06/02/2024 9.2 Bilirubin, Total 06/02/2024 0.3 Alkaline Phosphatase 06/02/2024 89 AST 06/02/2024 29 ALT 06/02/2024 17 Glucose 06/02/2024 159 (H) BUN 06/02/2024 13 Creatinine 06/02/2024 0.49 (L) Sodium 06/02/2024 141 Potassium 06/02/2024 4.6 Chloride 06/02/2024 103 CO2 06/02/2024 26 Anion Gap 06/02/2024 12 Estimated Glomerular Kyle* 06/02/2024 103 Hemoglobin A1C 06/02/2024 6.1 (H) Estimated Average Glucose 06/02/2024 128 TSH 06/02/2024 2.870 Creatinine, Ur Random (U* 06/02/2024 158.9 Albumin, Urine Random 06/02/2024 15.2 Albumin/Creat Ratio 06/02/2024 10 Uric Acid 06/02/2024 5.7 WBC 06/02/2024 5.49 RBC 06/02/2024 3.77 (L) Hemoglobin 06/02/2024 10.8 (L) Hematocrit 06/02/2024 35.9 (L) MCV 06/02/2024 95.2 MCH 06/02/2024 28.6 MCHC 06/02/2024 30.1 (L) RDW-CV 06/02/2024 15.9 (H) Platelet Count 06/02/2024 83 (L) MPV 06/02/2024 12.0 Neutrophils % 06/02/2024 59.6 Abs Neut 06/02/2024 3.28 Lymphocytes % 06/02/2024 25.7 Abs Lymph 06/02/2024 1.41 Monocytes % 06/02/2024 6.6 Abs [place] 06/02/2024 0.36 Eosinophils % 06/02/2024 6.6 Abs Eosin 06/02/2024 0.36 Basophils % 06/02/2024 1.1 Abs Baso 06/02/2024 0.06 Immature Granulocytes % 06/02/2024 0.4 Abs Immature Gran 06/02/2024 <0.03 NRBC 06/02/2024 0.0 Absolute nRBC 06/02/2024 <0.01 Diff Type 06/02/2024 Auto ASSESSMENT/PLAN: 1. Type 2 diabetes mellitus without complication, without long-term current use of insulin (HCC) - ICD9: 250.00, ICD10: E11.9 (primary diagnosis) - Controlled - Continue current medications - COMPREHENSIVE METABOLIC PANEL - LIPID PANEL BASIC - HEMOGLOBIN A1C 2. Hypothyroidism, unspecified type - ICD9: 244.9, ICD10: E03.9 - Instructed patient on importance of taking on an empty stomach either first thing in the morning or at bedtime. - continue current dose of Synthroid 0.088 mg - THYROID STIMULATING HORMONE - LEVOTHYROXINE 88 MCG TABLET 3. Hyperlipidemia, mixed - ICD9: 272.2, ICD10: E78.2 - Controlled - Continue current medications - Counseled on healthy diet and regular exercise - COMPREHENSIVE METABOLIC PANEL - LIPID PANEL BASIC 4. Gout, unspecified cause, unspecified chronicity, unspecified site - ICD9: 274.9, ICD10: M10.9 Stable - URIC ACID 5. Intractable migraine without aura and without status migrainosus - ICD9: 346.11, ICD10: G43.019 6. Anemia, unspecified type - ICD9: 285.9, ICD10: D64.9 Monitor Follow with GI - COMPLETE BLOOD COUNT AND DIFFERENTIAL 7. Elevated LFTs - ICD9: 790.6, ICD10: R79.89 Stable; monitor - COMPREHENSIVE METABOLIC PANEL 8. Screening for depression - ICD9: V79.0, ICD10: Z13.31 - DEPRESSION SCREENING 9. Encounter for screening examination for other mental health and behavioral disorders - ICD9: V79.8, ICD10: Z13.39 - ANXIETY SCREENING Follow up in 6 months Medical Decision Making: Problems: Moderate: 2+ stable chronic illnesses Data: Unique test result(s) reviewed: 3+ Unique test(s) ordered: 3+ Risk: Moderate: Drug management Medical Decision Making Level: 4 - Moderate Taty Julian MD documented in this encounterMemorial Hospital06-07-2024 Telephone encounter Note * Telephone Encounter - Ashley Aguilar MA - 03/25/2024 8:17 AM EDT patient has been notified of providers message [id number] Miscellaneous Notes* Telephone Encounter - Ashley Aguilar MA - 03/25/2024 8:17 AM EDT patient has been notified of providers message * Telephone Encounter - Esteban Thapa MD - 03/24/2024 5:04 PM EDT Rx sent in * Telephone Encounter - Scarlett Velasquez - 03/15/2024 12:00 PM EDT Name of caller: Krista Contact phone number: [phone] Relationship to Patient: patient Provider: Dr Thapa Practice: Neurology Chief Complaint/Reason for Call: Krista stated she was to have a script sent for gabapentin (Neurontin) 400 MG capsule to the pharmacy today. She received her other scripts but not the Gabapentin. Please advise. Best time of day caller can be reached: Any Patient advised that office/PCP has 24-48 business hours to return their call: Yes documented in this encounterSAvita Health [id number] Telephone encounter Note* Telephone Encounter - Esteban Thapa MD - 03/24/2024 5:04 PM EDT [id number] Miscellaneous Notes* Telephone Encounter - Esteban Thapa MD - 03/24/2024 5:04 PM EDT Rx sent in * Telephone Encounter - Scarlett Velasquez - 03/15/2024 12:00 PM EDT Name of caller: rKista Contact phone number: [phone] Relationship to Patient: patient Provider: Dr Thapa Practice: Neurology Chief Complaint/Reason for Call: Krista stated she was to have a script sent for gabapentin (Neurontin) 400 MG capsule to the pharmacy today. She received her other scripts but not the Gabapentin. Please advise. Best time of day caller can be reached: Any Patient advised that office/PCP has 24-48 business hours to return their call: Yes documented in this encounterSAvita Health [id number] Telephone encounter Note* Telephone Encounter - Isrrael Bruner APRN.CNP - 03/18/2024 7:38 AM EDT Noted. Isrrael Bruner APRN.CNP [facility] Miscellaneous Notes* Telephone Encounter - Isrrael Bruner APRN.CNP - 03/18/2024 7:38 AM EDT Noted. Isrrael Bruner APRN.CNP * Telephone Encounter - Marek Shrestha RN - 03/16/2024 2:20 PM EDT Patient reports she is unable to get her trulicity 3 mg at [facility]. Patient agreeable to check at other pharmacies to see if they have it, and call back to let pcp know. documented in this encounterMemorial Hospital05-29-2024 Telephone encounter Note * Telephone Encounter - Marek Shrestha, DANIELE - 03/16/2024 2:20 PM EDT Patient reports she is unable to get her trulicity 3 mg at [facility]. Patient agreeable to check at other pharmacies to see if they have it, and call back to let pcp know. [facility] Telephone encounter Note* Telephone Encounter - Scarlett Velasquez - 03/15/2024 12:00 PM EDT Name of caller: Krista Contact phone number: [phone] Relationship to Patient: patient Provider: Dr Thapa Practice: Neurology Chief Complaint/Reason for Call: Krista stated she was to have a script sent for gabapentin (Neurontin) 400 MG capsule to the pharmacy today. She received her other scripts but not the Gabapentin. Please advise. Best time of day caller can be reached: Any Patient advised that office/PCP has 24-48 business hours to return their call: Yes [facility] [id number] History of Present illness Narrative* Esteban Thapa MD - 03/15/2024 8:00 AM EDT Images from the original note were not included. [facility] [address] [facility] [facility] [address] Dept: [phone] Dept Loc: [phone] Visit type: Established Patient Reason for Visit: Follow-up and Migraine Assessment and Plan 1. Migraine with aura and without status migrainosus, not intractable - galcanezumab (Emgality) 120 MG/ML auto-injector; Inject 1 Syringe (120 mg) under the skin every 30 (thirty) days., Starting 03/15/2024, Until Mounika 04/14/2024, Normal 2. Primary insomnia Subjective HPI: She reports that she is down to 2 migraine days per month, down from 18 days per month thanks to Emgality. She has no side effects. Rizatriptan. She reports that she is sleeping better. She reports that gabapentin is working. She reports that her liver testing has been good of late. REVIEW OF SYSTEMS: Review of Systems Constitutional: Negative for appetite change, chills, diaphoresis, fever and unexpected weight change. HENT: Negative for dental problem and mouth sores. Eyes: Negative for discharge and itching. Respiratory: Negative for chest tightness. Cardiovascular: Negative for chest pain and leg swelling. Gastrointestinal: Negative for rectal pain and vomiting. Endocrine: Negative for polydipsia, polyphagia and polyuria. Genitourinary: Negative for decreased urine volume, flank pain and genital sores. Musculoskeletal: Negative for arthralgias. Skin: Negative for color change. Allergic/Immunologic: Negative for food allergies and immunocompromised state. Hematological: Negative for adenopathy. Does not bruise/bleed easily. Psychiatric/Behavioral: Negative for agitation, behavioral problems, decreased concentration, sleepdisturbance and suicidal ideas. Answers submitted by the patient for this visit: Other (Submitted on 03/08/2024) Please describe your symptoms.: Headaches Have you had these symptoms before?: Yes How long have you been having these symptoms?: For more than a month Please list any medications you are currently taking for this condition.: Gabapentin, Emgality, Rizatriptano Please describe any probable cause for these symptoms. : ? Allergies Allergen Reactions Ciprofloxacin Metronidazole Penicillins Statins Other reaction(s): Other (See Comments) Sulfa Antibiotics Current Outpatient Medications: allopurinol (Zyloprim) 100 MG tablet, Take 100 mg by mouth daily., Disp: , Rfl: Apple Cider Vinegar 300 MG tablet, Take by mouth., Disp: , Rfl: Black Elderberry (SAMBUCUS ELDERBERRY PO), Take by mouth., Disp: , Rfl: co-enzyme Q-10 30 MG capsule, Take 30 mg by mouth daily., Disp: , Rfl: Cranberry 500 MG capsule, Take by mouth., Disp: , Rfl: cycloSPORINE (Restasis MultiDose) 0.05 % ophthalmic emulsion, 1 drop 2 times daily., Disp: , Rfl: dulaglutide (Trulicity) 3 MG/0.5ML solution pen-injector, Inject 3 mg under the skin once a week., Disp: , Rfl: erythromycin (Romycin) 5 MG/GM ophthalmic ointment, Apply to affected eye(s)., Disp: , Rfl: fluorometholone (FML) 0.1 % ophthalmic suspension, INSTILL 1 DROP INTO EACH EYE TWICE DAILY, Disp: , Rfl: gabapentin (Neurontin) 400 MG capsule, TAKE 2-3 CAPS ABOUT 90 MIN PRIOR TO BEDTIME., Disp: 270 capsule, Rfl: 3 glimepiride (Amaryl) 4 MG tablet, TAKE 2 TABLETS BY MOUTH ONCE DAILY WITH BREAKFAST, Disp: , Rfl: Lactobacillus (ACIDOPHILUS/BIFIDUS PO), Take by mouth., Disp: , Rfl: LACTULOSE PO, Take by mouth., Disp: , Rfl: levothyroxine (Synthroid, Levoxyl) 75 MCG tablet, Take 75 mcg by mouth in the morning., Disp: , Rfl: magnesium 250 MG tablet, Take by mouth., Disp: , Rfl: metFORMIN (Glucophage) 1000 MG tablet, Take 1 tablet by mouth in the morning and 1 tablet in the evening. Take with meals., Disp: , Rfl: Multiple Vitamins-Minerals (HAIR SKIN AND NAILS FORMULA PO), Take by mouth., Disp: , Rfl: Multiple Vitamins-Minerals (Multivitamin Adult) chewable tablet, Chew., Disp: , Rfl: pantoprazole (ProtoNix) 40 MG EC tablet, Take 40 mg by mouth daily., Disp: , Rfl: SM Fexofenadine HCl 180 MG tablet, Take 180 mg by mouth daily., Disp: , Rfl: spironolactone (Aldactone) 25 MG tablet, Take 25 mg by mouth Once. Take 1/2 tab daily, Disp: , Rfl: Xifaxan 550 MG tablet, Take 550 mg by mouth 2 times daily., Disp: , Rfl: galcanezumab (Emgality) 120 MG/ML auto-injector, Inject 1 Syringe (120 mg) under the skin every 30 (thirty) days., Disp: 1 each, Rfl: 11 rizatriptan INSPECTOR AND HAND PACKAGER (Maxalt-INSPECTOR AND HAND PACKAGER) 10 MG disintegrating tablet, Take 1 tablet (10 mg) by mouth Once as needed for migraine. May repeat in 2 hours if unresolved. 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 01/27/2024 03/11/2023 1 Gabapentin 400 Mg Capsule 252.00 84 Ja Bav [id number] Dis ([id number]) 1 [facility] [place] 12/06/2023 03/11/2023 1 Gabapentin 400 Mg Capsule 156.00 52 Ja Bav [id number] Dis ([id number]) 0 [place] 08/13/2023 03/11/2023 1 Gabapentin 400 Mg Capsule 270.00 90 Bav [id number] [facility] ([id number]) 1 [place] 05/15/2023 03/11/2023 1 Gabapentin 400 Mg Capsule 270.00 90 [facility] [id number] [facility] ([id number]) 0 [place] 12/17/2022 07/09/2022 1 Gabapentin 400 Mg Capsule 90.00 30 [facility] [id number] [facility] ([id number]) 5 [place] 11/12/2022 07/09/2022 1 Gabapentin 400 Mg Capsule 90.00 30 [facility] [id number] [facility] ([id number]) 4 [place] Past Medical History: Diagnosis Date Diabetes mellitus (HCC) Headache Migraine Age 19 Social History Tobacco Use Smoking status: Former Packs/day: 0.25 Years: 3.00 Additional pack years: 0.00 Total pack years: 0.75 Types: Cigarettes Start date: 10/19/1969 Quit date: 10/19/1973 Years since quittin.4 Smokeless tobacco: Never Tobacco comments: Smoked when I was younger Substance Use Topics Alcohol use: Not Currently Comment: Icasionally Past Surgical History: Procedure Laterality Date SECTION (HISTORICAL) TONSILLECTOMY (HISTORICAL) VEIN SURGERY Family History Problem Relation Name Age of Onset Diabetes Mother Marylin Hubbard Stroke Mother Marylin Hubbard Heart attack Father Asad Hubbard Parkinsonism Father Asad Hubbard Objective Vitals: BP 113/71 (BP Location: Right arm, Patient Position: Sitting, BP Cuff Size: Adult) Pulse 77 Ht 4' 11.5" (1.511 m) Wt 155 lb 12.8 oz (70.7 kg) BMI 30.94 kg/m General Appearance: Patient is in no apparent distress. Head is normocephalic, atraumatic Cardiovascular: Regular rate and rhythm. No heart murmurs. No carotid bruit Neurologic: Mentation: Alert and oriented x 3 to person, place and time. Speech and Language: Speech and language normal Concentration and Attention: Concentration normal Memory: Memory grossly normal. Fund of Knowledge: Fund of knowledge normal Cranial Nerves: II, III, IV, V, , VII, VIII, IX, X, XI, XII examined and were intact. Motor: Strength: Strength 5 out of 5 with normal tone Alternating Movements: Normal Cogwheel Rigidity: None Tone: Tone is normal Tremor / Involuntary Movements: None Deep Tendon Reflexes: 1 out of 4 symmetrical in all four limbs. Coordination: Normal coordination upper and lower extremities Gait and Station: Station is normal. Gait is normal Data Reviewed and Summarized DIAGNOSTIC TESTING CBC: No results found for: "WBC", "RBC", "HGB", "HCT", "MCV", "MCH", "MCHC", "RDW", "PLT", "MPV" CMP: No results found for: "NA", "K", "CL", "CO2", "BUN", "CREATININE", "AGRATIO", "LABGLOM", "GLUCOSE", "GLU", "PROT", "CALCIUM", "BILITOT", "ALKPHOS", "AST", "ALT" BMP: No results found for: "NA", "K", "CL", "CO2", "BUN", "CREATININE", "CALCIUM", "LABGLOM", "GLUCOSE", "GLU" PT/INR: No results found for: "PROTIME", "INR" PTT: No results found for: "APTT", "PTT"[APTT} FLP: No results found for: "CHLPL", "TRIG", "HDL", "LDLCALC", "LDLDIRECT" TSH: No results found for: "TSH" VITAMIN B12: No results found for: "[id number]" No results found for: "PHENYTOIN", "PHENOBARB", "VALPROATE", "CBMZ" No components found for: "TOPIRA" @RESULTINGLABINFO@ No results found for: "LEVETIRACETA", "FERRITIN", "CRP", "KILEY", "ANCA" No results found for: "JULIENNE", "IMMUNOGLOBUL", "OLIGOBANDS" No results found for: "LCI20BC", "HEPCAB" No results found for: "CRP", "ANATITER", "ANCA" FERRITIN: No results found for: "FERRITIN" ---- XR CERVICAL SPINE W OBLIQUES FLEXION AND EXTENSION Narrative: Patient Name: KRISTA CAMPBELL ---Diagnostic Radiology--- Exam Date/Time 09/07/2020 11:44:41 EST Exam CR Spine Cervical Comp w/ Obliques Ordering Physician ESTEBAN THAPA Accession Number [id number] CPT4 Codes 31819 () Reason For Exam Cervicalgia Report CLINICAL INDICATION: Neck pain. Cervical spine seven views including AP, open mouth odontoid views, bilateral oblique views and flexion, extension and neutral lateral views. Normal height of the cervical vertebral bodies. Alignment is maintained on flexion, extension and neutral lateral views. Moderate disc space narrowing at C5-C6. Degenerative endplate changes at C5-C6. Bilateral foraminal stenosis at C5-C6, greater on the left side. The C1/C2 alignment is within normal limits. Soft tissues are unremarkable. Impression: Degenerative disc and endplate changes at C5-C6. Bilateral foraminal compromise at C5-C6, left worse than right. Report Dictated on --- Final --- Dictating Physician: MD PEREZ LAURA Signed Date and Time: 09/07/2020 2:13 pm Signed by: MD PEREZ LAURA Transcribed Date and Time: 09/07/2020 2:14 IMPRESSION and PLAN: Diagnosis Plan 1. Migraine with aura and without status migrainosus, not intractable galcanezumab (Emgality) 120 MG/ML auto-injector 2. Primary insomnia Continue the Emgality and prn rizatriptan Continue the gabapentin. Esteban Thapa MD I spent 30 minutes caring for this patient today, reviewing labs, records, seeing the patient, documenting in the record and arranging for studies. @SIGNATURE@ documented in this [facility]02-23-2024 History of Present illness Narrative* Taty Julian MD - 12/11/2023 8:40 AM EST Chief Complaint Patient presents with: 6 Month Exam HPI Krista Campbell is a 68 year old female who presents here today for 6 month follow up. Has an advanced directive. HM: Depression screening: Denies feeling depressed or hopeless. Depression screening tool completedand reviewed. Based on score and interview, patient is not at risk for depression. Screening tool discussed with patient, and I recommended no further intervention at this time No bowel, Gi, or urinary issues. Follows with Gastro DrAntione Friend. Hx of elevated LFT. GERD sx controlled with Protonix 40 mg 1 pill BID. Is taking Lactulose 10 g TID for sirrhosis. Started on Aldactone 25 mg, half pill daily and Xifaxan 550 mg 1 pill BID. Thinks she has a UTI that started about a month ago. No pain with urination but does have frequencyand urgency. No blood in urine that she can see. No fever or chills. No abdominal or back pain. Anemia: hx of transfusions, taking Iron once a day. Thyroid: Taking levothyroxine 75 mcg daily. No missed dosages. DM: Checks BS once daily with FBS 88-130. Denies any hypoglycemic episodes. 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 Taking Amaryl 2 mg daily and Metformin 1,000 mg 1 pill BID. Amaryl was decreased last visit due to low sugars. Lipid: Taking Zetia 10 mg daily. Tries to watch diet; portion sizes, more salads, vegetables, limiting meat and sugar intake. Walking for exercise. Gout: Stable with Allopurinol 300 mg daily[address] Follow[address] with Dr. Barton. Denies any recetn flares. Migraines: Doing well on Gabapentin 400 mg 2 pills at bedtime, Emgality injections every month and Maxalt prn. Follows with Dr. Thapa, Neuro. Follows with Maria Esther Singh, had skin cancer removed from neck. Past medical history, appointments, medications, allergies reviewed. Previous Medical History PAST MEDICAL HISTORY Diagnosis Date Arthritis in Hands Cervical disc disease Diabetes (HCC) Gout Macular degeneration Other forms of migraine Personal history of colonic polyps Snoring does not use C-pap Thyroid disease Previous Surgical History PAST SURGICAL HISTORY Procedure Laterality Date ABDOMINAL SURGERY HX DELIVERY ONLY , low cervical COLONOSCOPY 07/11/2022 repeat in 5 years COLONOSCOPY FLX DX W/COLLJ SPEC WHEN PFRMD 01/09/2010 Colonoscopy COLONOSCOPY FLX DX W/COLLJ SPEC WHEN PFRMD 01/15/2011 COLONOSCOPY FLX DX W/COLLJ SPEC WHEN PFRMD 03/27/2016 Colonoscopy COLONOSCOPY FLX DX W/COLLJ SPEC WHEN PFRMD 06/08/2017 Colonoscopy DILATION & CURETTAGE DX&/THER NONOBSTETRIC Dilation & curettage EGD W/O [facility] SPEC VARICIES INJ N/A 01/20/2023 [facility] EGD W/O [facility] SPEC VARICIES INJ N/A 04/08/2023 [facility] ESOPHAGOGASTRODUODENOSCOPY TRANSORAL DIAGNOSTIC 01/2004 EGD ESOPHAGOGASTRODUODENOSCOPY TRANSORAL DIAGNOSTIC 03/29/2018 EGD FRACTURE SURGERY LIG/TRNSXJ FLP TUBE ABDL/VAG APPR UNI/BI PAST SURGICAL HISTORY OF Left 07/07/2022 Left foot surgery with plates and screws placed STEREOTACTIC CORE BIOPSY 07/13/2007 LEFT BREAST- benign TONSILLECTOMY HX TONSILLECTOMY PRIMARY/SECONDARY <AGE 12 Family History FAMILY HISTORY Problem Relation Age of Onset Diabetes Mother Hypertension Mother Hypertension Father Diabetes Father Patient Allergies ALLERGIES Allergen Reactions Ubjukuy-Nce-Jbe Red* Myalgia Knees shake, weak and joints ache Cipro [Ciprofloxaci* Hives Metronidazole Hives Penicillins Rash Age 19 -- rash all over, hives Sulfa (Sulfonamide * Rash Current Medications Current Outpatient Medications on File Prior to Visit Medication Sig nadolol (CORGARD) 40 mg tablet Take 1 tablet by mouth once daily. allopurinol (ZYLOPRIM) 100 mg tablet Take 1 tablet by mouth once daily. ferrous sulfate 325 mg (65 mg iron) tablet Take 1 tablet by mouth once daily. Magnesium 250 mg tab Take 1 tablet by mouth twice daily. lactulose 10 gram/15 mL solution Take 30 mL by mouth. ezetimibe (ZETIA) 10 mg tablet Take 1 tablet by mouth once daily. pantoprazole DR (PROTONIX) 40 mg tablet Take 1 tablet by mouth twice daily. glimepiride (AMARYL) 2 mg tablet Take 1 tablet by mouth daily with breakfast. triamcinolone (KENALOG) 0.025 % cream Apply to affected area twice daily. dulaglutide (TRULICITY) 3 mg/0.5 mL pen injector Inject 3 mg subcutaneously one time a week. fexofenadine (JACQUELINE ALLERGY) 180 mg tablet Take 1 tablet by mouth once daily. levothyroxine (SYNTHROID) 75 mcg tablet Take 1 tablet by mouth once daily. metFORMIN (GLUCOPHAGE) 1,000 mg tablet Take 1 tablet by mouth twice daily with meals. gabapentin (NEURONTIN) 400 mg capsule Take 1 capsule by mouth twice daily. vitamin C-biotin (INMW-RTDF-PLIYD, VIT C-BIOTIN,) 50 mg -1,250 mcg chew Take 2 tablets by mouth once daily. coenzyme Q10 (CO Q-10) 100 mg cap capsule Take 2 capsules by mouth once daily. EMGALITY PEN 120 mg/mL pen Inject 120 mg subcutaneously once every month. fluorometholone (FML LIQUID FILM) 0.1 % ophthalmic suspension cranberry fruit extract (CRANBERRY ORAL) Take by mouth. rizatriptan (MAXALT) 10 mg tablet Apple Cider Vinegar 300 mg tab Take 1 tablet by mouth twice daily. MV-MN/FOLIC ACID/CALCIUM/VIT K (ONE-A-DAY WOMEN'S 50 PLUS ORAL) Take by mouth. L.ACID/L.CASEI/B.BIF/B.MINDA/FOS (PROBIOTIC BLEND ORAL) Take by mouth. cycloSPORINE (RESTASIS) 0.05 % ophthalmic emulsion Use 1 Drop in both eyes twice daily. ERYTHROMYCIN BASE (ERYTHROMYCIN OPHTHALMIC) Use in eyes. VIT C/NARCISA AC/LUT/COPPER/ZNOX (PRESERVISION LUTEIN ORAL) Take 1 tablet by mouth twice daily. No current facility-administered medications on file prior to visit. Social History Social History Tobacco Use Smoking status: Former Packs/day: 0.25 Years: 3.00 Additional pack years: 0.00 Total pack years: 0.75 Types: Cigarettes Quit date: 06/08/1975 Years since quittin.5 Smokeless tobacco: Never Vaping Use Vaping Use: Never used Substance Use Topics Alcohol use: Yes Comment: rare, once a year Drug use: No EXAM: BP 112/62 Pulse 74 Resp 16 Wt 72.1 kg (158 lb 14.4 oz) LMP 01/31/2005 BMI 32.09 kg/m General Appearance: Well appearing, alert, in no acute distress, well-hydrated, well nourished. andOverweight. Lungs: Lungs clear to auscultation. No wheezing, rhonchi, rales.. Heart: RRR without murmur, gallop, or rubs. No ectopy. Health Maintenance List RSV Vaccine(1 - 1-dose 60+ series) Never done Urine Albumin:Creatinine Ratio due on 05/28/2023 Diabetic Foot Exam due on 09/10/2023 Advance Directive Discussion due on 10/19/2023 Depression Assessment due on 10/19/2023 Hepatitis B Vaccine(3 of 3 - Hep B Twinrix risk 3-dose series) due on 12/13/2023 Hepatitis A Vaccine(3 of 3 - Hep A Twinrix risk 3-dose series) due on 12/13/2023 HbA1C due on 12/03/2023 Mammogram Screening due on 04/15/2024 LDL Cholesterol due on 06/02/2024 Annual PCP Team Chronic Disease Visit due on 06/11/2024 Dilated Retinal Exam due on 08/27/2024 Colorectal Cancer Screening due on 07/11/2027 DTaP,Tdap,Td Vaccine(3 - Td or Tdap) due on 12/01/2028 Bone Density Screening Completed Influenza Vaccine Completed Hepatitis C Screening Completed Shingrix Vaccine Completed Covid-19 Vaccine Completed Pneumococcal Vaccine: 65+ Completed Pap Testing Discontinued Data reviewed UA POC results positive for nitrates, small leukocytes, no blood. Appointment on 11/30/2023 Component Date Value Protein, Total 11/30/2023 7.4 Albumin 11/30/2023 4.3 Calcium, Total 11/30/2023 9.7 Bilirubin, Total 11/30/2023 0.6 Alkaline Phosphatase 11/30/2023 106 AST 11/30/2023 40 (H) ALT 11/30/2023 30 Glucose 11/30/2023 109 (H) BUN 11/30/2023 13 Creatinine 11/30/2023 0.60 Sodium 11/30/2023 140 Potassium 11/30/2023 4.5 Chloride 11/30/2023 101 CO2 11/30/2023 28 Anion Gap 11/30/2023 11 Estimated Glomerular Kyle* 11/30/2023 98 Cholesterol, Total 11/30/2023 166 Triglyceride 11/30/2023 147 HDL Cholesterol 11/30/2023 38 (L) Non HDL Cholesterol 11/30/2023 128 Fasting Time 11/30/2023 15 VLDL Cholesterol 11/30/2023 29 TC:HDL Ratio 11/30/2023 4.37 LDL Cholesterol 11/30/2023 99 LDL:HDL Ratio 11/30/2023 2.61 (H) Hemoglobin A1C 11/30/2023 6.3 (H) Estimated Average Glucose 11/30/2023 134 Uric Acid 11/30/2023 5.4 TSH 11/30/2023 4.270 (H) WBC 11/30/2023 6.91 RBC 11/30/2023 4.32 Hemoglobin 11/30/2023 13.3 Hematocrit 11/30/2023 40.8 MCV 11/30/2023 94.4 MCH 11/30/2023 30.8 MCHC 11/30/2023 32.6 RDW-CV 11/30/2023 14.3 Platelet Count 11/30/2023 93 (L) MPV 11/30/2023 11.5 Neutrophils % 11/30/2023 57.5 Abs Neut 11/30/2023 3.97 Lymphocytes % 11/30/2023 29.4 Abs Lymph 11/30/2023 2.03 Monocytes % 11/30/2023 6.9 Abs [place] 11/30/2023 0.48 Eosinophils % 11/30/2023 4.9 Abs Eosin 11/30/2023 0.34 Basophils % 11/30/2023 0.7 Abs Baso 11/30/2023 0.05 Immature Granulocytes % 11/30/2023 0.6 Abs Immature Gran 11/30/2023 0.04 NRBC 11/30/2023 0.0 Absolute nRBC 11/30/2023 <0.01 Diff Type 11/30/2023 Auto ASSESSMENT/PLAN: 1. Type 2 diabetes mellitus without complication, without long-term current use of insulin (HCC) - ICD9: 250.00, ICD10: E11.9 (primary diagnosis) - Controlled - Continue current medications - Stop glimepiride - Counseled on healthy diet and regular exercise - Discussed need for and benefit of weight loss. BMI 32.09 kg/(m^2) - METFORMIN 1,000 MG TABLET - GLIMEPIRIDE 2 MG TABLET - EZETIMIBE 10 MG TABLET - DULAGLUTIDE 3 MG/0.5 ML SUBCUTANEOUS PEN INJECTOR 2. Hypothyroidism, unspecified type - ICD9: 244.9, ICD10: E03.9 - Instructed patient on importance of taking on an empty stomach either first thing in the morning or at bedtime. - Increase Synthroid dose to 0.088 mg - LEVOTHYROXINE 75 MCG TABLET 3. Cough - ICD9: 786.2, ICD10: R05.9 stable - FEXOFENADINE 180 MG TABLET 4. Globus sensation - ICD9: 784.99, ICD10: R09.A2 Controlled Continue with Gastro Dr Narinder - PANTOPRAZOLE 40 MG TABLET,DELAYED RELEASE 5. Hyperlipidemia, mixed - ICD9: 272.2, ICD10: E78.2 - Controlled - Continue current medications - Counseled on healthy diet and regular exercise - Discussed need for and benefit of weight loss. BMI 32.09 kg/(m^2) - EZETIMIBE 10 MG TABLET 6. Urinary frequency - ICD9: 788.41, ICD10: R35.0 acute - UA positive for lianna esterase and nitrates - Send urine for culture - Begin treatment with Macrobid 100 mg BID for 7 days - Patient education for prevention given - UA DIP, URINE (POC) 7. Esophageal varices without bleeding, unspecified esophageal varices type (HCC) - ICD9: 456.1, ICD10: I85.00 Stable Continue with Gastro Dr. Friend Continue current medications. 8. Disorder involving thrombocytopenia (HCC) - ICD9: 287.5, ICD10: D69.6 Continue current medications. Continue to monitor with labs 9. Recurrent UTI (urinary tract infection) - ICD9: 599.0, ICD10: N39.0 acute - UA positive for lianna esterase and nitrates - Send urine for culture - Begin treatment with Macrobid 100 mg BID for 7 days - Patient education for prevention given 10. Gout, unspecified cause, unspecified chronicity, unspecified site - ICD9: 274.9, ICD10: M10.9 Stable Continue current medications. Follow up in 6 months with fasting labs and urine test prior. I agree with the Chief Complaint, ROS, and Past Histories independently gathered by the clinical product support specialist and the remaining scribed note accurately describes my personal service to the patient. Medical Decision Making: Problems: Moderate: 2+ stable chronic illnesses Data: Unique test result(s) reviewed: 3+ Unique test(s) ordered: 3+ Risk: Moderate: Drug management Medical Decision Making Level: 4 - Moderate Taty Julian MD The documentation for this note was completed by Vivien Sharma Ma acting as scribe for Taty Julian MD. December 11, 2023 8:45 AM. Vivien Sharma Ma [facility] History of Present illness Narrative* ALBERTO Lim DPM - 10/01/2023 7:58 AM EST Images from the original note were not included. Established Patient Visit ALBERTO Lim DPM Patient Name: Krista Campbell. . Date of : 1955, 68 y.o.. Gender: female. Subjective: Patient is a pleasant 68-year-old female who presents to clinic today for follow-up of right ankle peroneal tendinitis. Patient is doing much better and more of her discomfort is oriented more to thefront of the ankle now. She is able to walk with minimal pain in the boot. Patient denies any current fever, chills, nausea,, chest pain calf pain or shortness of breath. She has no other pedal complaints at this time. Physical Examination: BP 111/72 (BP Location: Left arm, Patient Position: Sitting, BP Cuff Size: Adult) Pulse 80 Temp98.3 F (36.8 C) (Infrared) General Appearance: Alert, cooperative, no distress, appears stated age. Podiatric Exam Vascular: DP PT pulses are easily palpable. CFT brisk. There is some mild edema to the right ankle foot. Neurological: Epicritic and protopathic sensation intact to bilateral lower extremities. Dermatologic: Healed incision noted to the left lateral foot. Stable appearing. No erythema. There is a sizable palpable lesion to the plantar central aspect of the right foot in the mid substance ofplantar fascia fairly consistent with a plantar fibroma. This is a sessile lesion/mass. Patient hassome mild edema with no ecchymosis to the lateral ankle on the right. Musculoskeletal: Foot and ankle overall rectus alignment. Muscle strength testing 5-5 all tested muscle groups. Minimal pain with eversion and dorsiflexion. No pain on palpation noted to the peronealtendons posterior lateral malleolus and extending to the insertion. No pain to the fifth metatarsal. No pain to the midfoot. No pain to the ATFL or minimal pain to the sinus tarsi. Only pain patient really complains of is just diffuse irritation to the front of the ankle. Minimal pain with subtalarjoint range of motion. But no crepitus appreciated. Diagnoses: 1. Peroneal tendonitis of right lower extremity 2. Acute right ankle pain 3. Arthritis of subtalar joint Imaging: Not acquired during today's visit. Assessment/Plan: Patient was seen and evaluated. Discussed all clinical and radiographic findings Patient to continue with the peroneal tendinitis protocol. I believe the tendinitis is more so resolved and she just now is getting irritation from the boot. We will just de-escalate her into a brace and patient to continue diligent stretching exercises. Did offer patient formal physical therapy today but patient refused. Patient to follow-up in 4 weeks for reevaluation at which point in time would consider formal physical therapy should she require it. This note was partially created using voice recognition software and is inherently subject to errors including those of syntax and "sound-alike" substitutions which may escape proofreading. In such instances, original meaning may be extrapolated by contextual derivation. ALBERTO Lim DPM Podiatric Foot & Ankle Surgery documented in this [id number] History of Present illness Narrative* ALBERTO Lim DPM - 09/01/2023 1:42 PM EST Images from the original note were not included. Established Patient Visit ALBERTO Lim DPM Patient Name: Krista Campbell. . Date of : 1955, 68 y.o.. Gender: female. Subjective: Patient is a pleasant 68-year-old female who presents to clinic today with new onset pain to the right foot. Patient relates that last night she was cleaning sat down and then stood up and had severesignificant pain. Pain is mostly oriented to the outside of the ankle. She is been minimally ambulatory secondary to significant pain. She is a diabetic with last known hemoglobin A1c in the low sevens. Patient recently has been diagnosed with advanced end-stage liver disease. Patient denies any current fever, chills, nausea,, chest pain calf pain or shortness of breath. She has no other pedal complaints at this time. Physical Examination: BP 108/72 (BP Location: Left arm, Patient Position: Sitting, BP Cuff Size: Adult) Pulse 81 Temp98.3 F (36.8 C) (Infrared) General Appearance: Alert, cooperative, no distress, appears stated age. Podiatric Exam Vascular: DP PT pulses are easily palpable. CFT brisk. There is some mild edema to the right ankle foot. Neurological: Epicritic and protopathic sensation intact to bilateral lower extremities. Dermatologic: Healed incision noted to the left lateral foot. Stable appearing. No erythema. There is a sizable palpable lesion to the plantar central aspect of the right foot in the mid substance ofplantar fascia fairly consistent with a plantar fibroma. This is a sessile lesion/mass. Patient hassome mild edema with no ecchymosis to the lateral ankle on the right. Musculoskeletal: Foot and ankle overall rectus alignment. Muscle strength testing 5-5 all tested muscle groups. Significantly decreased on the right secondary to guarding. Pain with eversion and dorsiflexion. Pain on palpation noted to the peroneal tendons posterior lateral malleolus and extending to the insertion. No pain to the fifth metatarsal. No pain to the midfoot. No pain to the ATFL or minimal pain to the sinus tarsi. Pain with subtalar joint range of motion. But no crepitus appreciated. Diagnoses: 1. Peroneal tendonitis of right lower extremity Handicap Placard 2. Acute right ankle pain Handicap Placard 3. Arthritis of subtalar joint Handicap Placard Imagin views of the right foot reviewed today AP MO and lateral. No acute fracture or dislocation of note. Fluffy periosteal type formation noted throughout the midfoot to the lesser metatarsals possibly signifying underlying or chronic stress fracture. Plantar calcaneal enthesophyte with ossification was noted within the substance of plantar fascia. Retrocalcaneal enthesophyte noted. Mild subchondralsclerosis noted to the subtalar joint. Assessment/Plan: Patient was seen and evaluated. Discussed all clinical and radiographic findings Educated patient on possible etiology and pathophysiology associated with various foot maladies. Discussed various treatment options available to patient. Being that she has not advanced liver disease and diabetes patient really is not a candidate for anti-inflammatory therapy. Patient is to utilize the cam boot walker over the course of the next month. At which point patient is able to have less pain may start peroneal tendon rehab exercises. Patient to follow-up in 1 month for reevaluation. It which point time should she not be substantially improved may consider an MRI for further evaluation This note was partially created using voice recognition software and is inherently subject to errors including those of syntax and "sound-alike" substitutions which may escape proofreading. In such instances, original meaning may be extrapolated by contextual derivation. ALBERTO Lim DPM Podiatric Foot & Ankle Surgery documented in this [id number] Procedure [facility]10-23-2023 Procedure [facility]08-24-2023 Instructions* Patient Instructions* Carmen Mckeon Ma - 06/11/2023 9:20 AM EDT To avoid sugars going too low, reduce Amaryl (Glimepiride) 4 mg in half. Take 0.5 tablet. Will sendin a new prescription for this dosage. [facility] History of Present illness Narrative* Ttay Julian MD - 06/11/2023 8:40 AM EDT Chief Complaint Patient presents with: F/U 3 Month HPI Krista Campbell is a 67 year old female who presents here today for 3 month follow up. Here today for a 3 month follow up and lab review. Has been riding bike and camping this summer. Not much travel due to health issues going on. Hx of elevated LFT. Follows with Gastro Dr. Curtis. Taking Lactulose 10 g TID for cirrhosis. Had repeat EGD done in March. GERD sx stable with Protonix 40 mg bid. This was increased from GI. Dr. Curtis suggested that patient get Hep A & Hep B vaccines due to her liver. Anemia: Hx of transfusions. Taking Iron once daily. DM: Checking sugars once daily. Sugars ranging from 97-120. Taking Amaryl 4 mg once daily which wasdecreased last visit and Metformin 1,000 mg 1 pill BID. Reports two really bad lows. Reports neuropathy in left foot but Industrial Equipment Mechanic said this is normal due to previous surgery in that foot. Thyroid: Taking Levothyroxine 75 mcg daily. Denies missing any dosages. Lipid: Tries to watch diet, eating more vegetables, salads, limiting meat, controlling portion sizes and limiting sugar intake. Walks for exercise. Taking Zetia 10 mg daily, tolerating well. Migraines: Stable with Gabapentin 400 mg 2 pills at bedtime, Emgality injections monthly, and Maxalt prn. Follows with Neuro Dr. Thapa. Gout: Stable on Allopurinol 300 mg daily. Denies any flare ups. Follows with Dr. Barton, Industrial Equipment Mechanic. Derm - Reports that Kenalog cream is not strong enough. Skin is still flaky on her neck. Wonders ifshe needs something stronger. HM - Will get updated Covid when available. Past medical history, appointments, medications, allergies reviewed. Previous Medical History PAST MEDICAL HISTORY Diagnosis Date Arthritis in Hands Cervical disc disease Diabetes (HCC) Gout Macular degeneration Other forms of migraine Personal history of colonic polyps Snoring does not use C-pap Thyroid disease Previous Surgical History PAST SURGICAL HISTORY Procedure Laterality Date ABDOMINAL SURGERY HX DELIVERY ONLY , low cervical COLONOSCOPY 07/11/2022 repeat in 5 years COLONOSCOPY FLX DX W/COLLJ SPEC WHEN PFRMD 01/09/2010 Colonoscopy COLONOSCOPY FLX DX W/COLLJ SPEC WHEN PFRMD 01/15/2011 COLONOSCOPY FLX DX W/COLLJ SPEC WHEN PFRMD 03/27/2016 Colonoscopy COLONOSCOPY FLX DX W/COLLJ SPEC WHEN PFRMD 06/08/2017 Colonoscopy DILATION & CURETTAGE DX&/THER NONOBSTETRIC Dilation & curettage EGD W/O [facility] SPEC VARICIES INJ N/A 01/20/2023 [facility] ESOPHAGOGASTRODUODENOSCOPY TRANSORAL DIAGNOSTIC 01/2004 EGD ESOPHAGOGASTRODUODENOSCOPY TRANSORAL DIAGNOSTIC 03/29/2018 EGD FRACTURE SURGERY LIG/TRNSXJ FLP TUBE ABDL/VAG APPR UNI/BI PAST SURGICAL HISTORY OF Left 07/07/2022 Left foot surgery with plates and screws placed STEREOTACTIC CORE BIOPSY 07/13/2007 LEFT BREAST- benign TONSILLECTOMY HX TONSILLECTOMY PRIMARY/SECONDARY <AGE 12 Family History FAMILY HISTORY Problem Relation Age of Onset Diabetes Mother Hypertension Mother Hypertension Father Diabetes Father Patient Allergies ALLERGIES Allergen Reactions Podgnnz-Yct-Lqw Red* Myalgia Knees shake, weak and joints ache Cipro [Ciprofloxaci* Hives Metronidazole Hives Penicillins Rash Age 19 -- rash all over, hives Sulfa (Sulfonamide * Rash Current Medications Current Outpatient Medications on File Prior to Visit Medication Sig triamcinolone (KENALOG) 0.025 % cream Apply to affected area twice daily. glimepiride (AMARYL) 4 mg tablet Take 1 tablet by mouth daily with breakfast. dulaglutide (TRULICITY) 3 mg/0.5 mL pen injector Inject 3 mg subcutaneously one time a week. lactulose 10 gram/15 mL solution Take by mouth. ezetimibe (ZETIA) 10 mg tablet Take 1 tablet by mouth once daily. fexofenadine (JACQUELINE ALLERGY) 180 mg tablet Take 1 tablet by mouth once daily. levothyroxine (SYNTHROID) 75 mcg tablet Take 1 tablet by mouth once daily. pantoprazole DR (PROTONIX) 40 mg tablet Take 1 tablet by mouth once daily. metFORMIN (GLUCOPHAGE) 1,000 mg tablet Take 1 tablet by mouth twice daily with meals. gabapentin (NEURONTIN) 400 mg capsule Take 1 capsule by mouth twice daily. allopurinol (ZYLOPRIM) 100 mg tablet Take 100 mg by mouth twice daily. ferrous sulfate 325 mg (65 mg iron) tablet Take 1 tablet by mouth twice daily with meals. vitamin C-biotin (YOMP-WZZO-EZAKA, VIT C-BIOTIN,) 50 mg -1,250 mcg chew Take 2 tablets by mouth once daily. coenzyme Q10 (CO Q-10) 100 mg cap capsule Take 2 capsules by mouth once daily. EMGALITY PEN 120 mg/mL pen Inject 120 mg subcutaneously once every month. fluorometholone (FML LIQUID FILM) 0.1 % ophthalmic suspension XIIDRA 5 % dpet Use 1 Drop in both eyes twice daily. cranberry fruit extract (CRANBERRY ORAL) Take by mouth. rizatriptan (MAXALT) 10 mg tablet Apple Cider Vinegar 300 mg tab Take 1 tablet by mouth twice daily. MV-MN/FOLIC ACID/CALCIUM/VIT K (ONE-A-DAY WOMEN'S 50 PLUS ORAL) Take by mouth. L.ACID/L.CASEI/B.BIF/B.MINDA/FOS (PROBIOTIC BLEND ORAL) Take by mouth. cycloSPORINE (RESTASIS) 0.05 % ophthalmic emulsion Use 1 Drop in both eyes twice daily. ERYTHROMYCIN BASE (ERYTHROMYCIN OPHTHALMIC) Use in eyes. VIT C/NARCISA AC/LUT/COPPER/ZNOX (PRESERVISION LUTEIN ORAL) Take 1 tablet by mouth twice daily. No current facility-administered medications on file prior to visit. Social History Social History Tobacco Use Smoking status: Former Packs/day: 0.25 Years: 3.00 Additional pack years: 0.00 Total pack years: 0.75 Types: Cigarettes Quit date: 06/08/1975 Years since quittin.0 Smokeless tobacco: Never Vaping Use Vaping Use: Never used Substance Use Topics Alcohol use: Yes Comment: rare, once a year Drug use: No EXAM: BP 124/80 (BP Site: Left Arm, BP Position: Sitting, BP Cuff Size: Regular Adult) Pulse 76 Resp 16 Wt 74.7 kg (164 lb 9.6 oz) LMP 01/31/2005 BMI 33.25 kg/m General Appearance: Well appearing, alert, in no acute distress, well-hydrated, well nourished.. Lungs: Lungs clear to auscultation. No wheezing, rhonchi, rales.. Heart: RRR without murmur, gallop, or rubs. No ectopy. Health Maintenance List HEPATITIS A(1 of 2 - Risk 2-dose series) Never done HEPATITIS B(1 of 3 - Risk 3-dose series) Never done COVID-19 VACCINE(5 - Moderna series) due on 03/04/2023 URINE ALBUMIN:CREATININE RATIO due on 05/28/2023 INFLUENZA(1) due on 06/19/2023 HBA1C due on 09/03/2023 DIABETIC FOOT EXAM due on 09/10/2023 DILATED RETINAL EXAM due on 02/28/2024 LDL CHOLESTEROL due on 03/03/2024 ANNUAL PCP TEAM CHRONIC DISEASE VISIT due on 03/12/2024 MAMMOGRAM due on 04/15/2024 COLORECTAL CANCER SCREENING due on 07/11/2027 DTAP,TDAP,TD(3 - Td or Tdap) due on 12/01/2028 BONE DENSITY Completed ADVANCE DIRECTIVE DISCUSSION Completed DEPRESSION ASSESSMENT Completed HEPATITIS C SCREENING Completed SHINGRIX VACCINE Completed PNEUMOCOCCAL: 65+ Completed PAP TESTING Discontinued Data reviewed Appointment on 06/02/2023 Component Date Value Protein, Total 06/02/2023 7.7 Albumin 06/02/2023 4.4 Calcium, Total 06/02/2023 9.7 Bilirubin, Total 06/02/2023 0.3 Alkaline Phosphatase 06/02/2023 97 AST 06/02/2023 36 (H) ALT 06/02/2023 25 Glucose 06/02/2023 138 (H) BUN 06/02/2023 15 Creatinine 06/02/2023 0.66 Sodium 06/02/2023 140 Potassium 06/02/2023 4.3 Chloride 06/02/2023 101 CO2 06/02/2023 26 Anion Gap 06/02/2023 13 Estimated Glomerular Kyle* 06/02/2023 96 Cholesterol, Total 06/02/2023 179 Triglyceride 06/02/2023 215 (H) HDL Cholesterol 06/02/2023 42 Non HDL Cholesterol 06/02/2023 137 (H) Fasting Time 06/02/2023 12 VLDL Cholesterol 06/02/2023 43 (H) TC:HDL Ratio 06/02/2023 4.26 LDL Cholesterol 06/02/2023 94 LDL:HDL Ratio 06/02/2023 2.24 Hemoglobin A1C 06/02/2023 6.7 (H) Estimated Average Glucose 06/02/2023 146 WBC 06/02/2023 5.58 RBC 06/02/2023 4.57 Hemoglobin 06/02/2023 13.6 Hematocrit 06/02/2023 42.8 MCV 06/02/2023 93.7 MCH 06/02/2023 29.8 MCHC 06/02/2023 31.8 RDW-CV 06/02/2023 14.5 Platelet Count 06/02/2023 80 (L) MPV 06/02/2023 11.6 Neutrophils % 06/02/2023 56.9 Abs Neut 06/02/2023 3.17 Lymphocytes % 06/02/2023 29.7 Abs Lymph 06/02/2023 1.66 Monocytes % 06/02/2023 7.7 Abs [place] 06/02/2023 0.43 Eosinophils % 06/02/2023 4.5 Abs Eosin 06/02/2023 0.25 Basophils % 06/02/2023 0.7 Abs Baso 06/02/2023 0.04 Immature Granulocytes % 06/02/2023 0.5 Abs Immature Gran 06/02/2023 0.03 NRBC 06/02/2023 0.0 Absolute nRBC 06/02/2023 <0.01 Diff Type 06/02/2023 Auto TSH 06/02/2023 3.000 Uric Acid 06/02/2023 5.1 ASSESSMENT/PLAN: 1. Type 2 diabetes mellitus without complication, without long-term current use of insulin (HCC) - ICD9: 250.00, ICD10: E11.9 (primary diagnosis) - Controlled - Decrease glimiperide to 2 mg daily due to hypoglycemic incidents - Counseled on healthy diet and regular exercise - EZETIMIBE 10 MG TABLET 2. Hypothyroidism, unspecified type - ICD9: 244.9, ICD10: E03.9 - Instructed patient on importance of taking on an empty stomach either first thing in the morning or at bedtime. - continue current dose of Synthroid 0.075 mg Stable - Continue current medications 3. Hyperlipidemia, mixed - ICD9: 272.2, ICD10: E78.2 - Controlled - Continue current medications - Counseled on healthy diet and regular exercise - EZETIMIBE 10 MG TABLET 4. Gout, unspecified cause, unspecified chronicity, unspecified site - ICD9: 274.9, ICD10: M10.9 - Stable on current regimen - Cont monitoring through routine labs 5. Anemia, unspecified type - ICD9: 285.9, ICD10: D64.9 - Continue current medication regimen. - FERROUS SULFATE 325 MG (65 MG IRON) TABLET 6. Disorder involving thrombocytopenia (HCC) - ICD9: 287.5, ICD10: D69.6 - Cont to monitor through routine labs - Continue current medication regimen. 7. Hepatic cirrhosis, unspecified hepatic cirrhosis type, unspecified whether ascites present (HCC)- ICD9: 571.5, ICD10: K74.60 - Cont f/u with GI - Continue current medication regimen. 8. Gastrointestinal hemorrhage with hematemesis - ICD9: 578.0, ICD10: K92.0 - Cont f/u with GI - Continue current medication regimen. 9. Intractable migraine without aura and without status migrainosus - ICD9: 346.11, ICD10: G43.019 - Stable - Continue current medication regimen. - Cont f/u with Neuro 10. Globus sensation - ICD9: 784.99, ICD10: R09.89 - Continue current medication regimen. - PANTOPRAZOLE 40 MG TABLET,DELAYED RELEASE 11. Need for vaccination - ICD9: V05.9, ICD10: Z23 - HEP A-HEP B VACCINE ([place]) - HEP A-HEP B VACCINE (T[place]X) - HEP A-HEP B VACCINE (T[place]X) 6 mo f/u with labs. Receive first vaccines today. Schedule NV in 1 month. I agree with the Chief Complaint, ROS, and Past Histories independently gathered by the clinical product support specialist and the remaining scribed note accurately describes my personal service to the patient. Medical Decision Making: Problems: Moderate: 2+ stable chronic illnesses Data: Unique test result(s) reviewed: 3+ Unique test(s) ordered: 3+ Risk: Moderate: Drug management Medical Decision Making Level: 4 - Moderate Taty Julian MD The documentation for this note was completed by Carmen Mckeon Ma acting as scribe for Taty Julian MD. June 11, 2023 8:40 AM. Carmen Mckeon Ma documented in this [facility]08-[facility] History of Present illness Narrative* Bill Kulkarni Jr., DPM - 06/03/2023 8:20 AM EDT Gout Patient is a pleasant 67-year-old diabetic female following up today on bilateral foot and ankle gout. She states that for the last year she has been taking her allopurinol 100 mg twice per day and has had 0 flareups. In the last few months she has been down to allopurinol 1100 mg daily still with 0 flare ups. Physical Vascular: DP PT pulses are intact. Derm: No erythema no open wounds no ulcers no deep nodules. Can easily wiggle ankles and midtarsal. Did review her labs: 6.7% and uric acid is 5.1. Assessment and plan Patient is a pleasant type II diabetic female with chronic well-controlled gout. -At this time did cut in half her dosing of allopurinol. Prescription for the next 90 days at 100 mg once daily for 90 days 90 tabs 3 refills. - Could consider down titrating her allopurinol again to either half or none. Low medical complexity decision making based on chronicity. documented in this [id number] Procedure [facility]06-21-2023 Procedure [facility]06-20-2023 Note Date of Procedure: 04/07/2023 Pathologist: [facility], Cytology Date Reported: 04/13/2023 Date Received: 04/07/2023 Submitting Physician: ESTEBAN HUBBARD MD Attending Physician: ESTEBAN HUBBARD MD FINAL CYTOLOGICAL INTERPRETATION A. THINPREP PAP CERVICAL: Specimen adequacy: SATISFACTORY FOR EVALUATION. Quality Indicator: Endocervical/transformation zone component is present. Quality Indicator: Partially obscuring inflammation. General Categorization: NEGATIVE FOR INTRAEPITHELIAL LESION OR MALIGNANCY. HIGH RISK HPV TEST RESULT: HPV GENOTYPE 16 NEGATIVE HPV GENOTYPE 18 NEGATIVE HPV GENOTYPE OTHER NEGATIVE Reference Range: Negative Slide(s) initially screened by a Geodetic Surveyor at [facility], [address] [place] [id number] Testing for high-risk (HR) type of human papilloma virus (HPV) is performed by the [employer]ats[employer] cynthia HPV Test. The cynthia HPV Test is a qualitative polymerase chain reaction that amplifies DNA of HPV16, HPV18 and 12 other high-risk HPV types (31, 33, 35, 39, 45, 51, 52, 56, 58, 59, 66, and 68) associated with cervical cancer and its precursor lesions. A positive result indicates the presence of HPV DNA due to one or more of the 14 genotypes: 16, 18, 31, 33, 35, 39, 45, 51, 52, 56, 58, 59, 66, and 68. Negative results indicate HPV DNA concentrations are undetectable or below the pre-set threshold for detection. False negative results may be associated with unoptimized sampling. A negative HR HPV result does not exclude the possibility of future cytologic HSIL or underlying CIN2-3 or cancer. This test is approved for cervical specimens by the [place] Food and Drug Administration. Results of this test should be interpreted in conjunction with the patient?s Pap test results. Please refer to ASCCP current guidelines for the use of HPV DNA testing, result interpretation, and patient management. The performance of this test was verified by the Molecular Diagnostic Laboratory at [facility]. The lab is certified under the Clinical Laboratory Amendments of 1988 (CLIA 88) as qualified to perform high complexity clinical laboratory testing. This specimen has been analyzed by the [employer] Imaging System ([employer] an automated imaging and review system, which assists the laboratory in evaluating cells on ThinPrep Pap tests. Following automated imaging, selected whitney from every slide were reviewed by a mangle tender and/or pathologist. Electronically Signed Out By [facility], Cytology//LSM By the signature on this report, the individual or group listed as making the Final Interpretation/Diagnosis certifies that they have reviewed this case. Diagnostic interpretation performed at [facility] [address] [place] [address] Educational Note: Cervical cytology is a screening procedure primarily for squamous cancers and precursors and has associated false-negative and false-positive results as evidenced by published data. Your patient?s test should be interpreted in this context, together with patient?s history and clinical findings. Regular sampling and follow-up of unexplained clinical signs and symptoms are recommended to minimize false negative results. Clinical History Date of Last Menstrual Period: Menopause 2002 Other Clinical Conditions: COTEST HPV(Genotype) except for ASC-H, HSIL, Carcinoma - Include HPV Genotype testing Clinical Diagnosis History: Screening for cervical cancer - (Z12.4); Women's annual routine gynecological examination - (Z01.419) Source of Specimen A: THINPREP PAP CERVICAL [facility] Department of Pathology [id number] [place], [place] [id number] Mullica HillComment on above:Performed By: #### C #### [facility] Cytology [id number] [place] [address] [id number] Telephone encounter Note* Telephone Encounter - Moraima Hadley - 03/18/2023 12:16 PM EDT Pt returned call and was advised of message: Please inform pt that there is no documents needing to be signed at this time for the Emgality. Pt stated she understood and doesn't have any questions or concerns at this time. Please advise [facility] [id number] Miscellaneous Notes* Telephone Encounter - Moraima Hadley - 03/18/2023 12:16 PM EDT Pt returned call and was advised of message: Please inform pt that there is no documents needing to be signed at this time for the Emgality. Pt stated she understood and doesn't have any questions or concerns at this time. Please advise * Telephone Encounter - Lucero Lemons - 03/13/2023 3:46 PM EDT Left a message for the pt to call the office. Please inform pt that there is no documents needing to be signed at this time for the Emgality. documented in this encounterSAvita Health [id number] Telephone encounter Note* Telephone Encounter - Lucero Lemons - 03/13/2023 3:46 PM EDT Left a message for the pt to call the office. Please inform pt that there is no documents needing to be signed at this time for the Emgality. [facility] [id number] History of Present illness Narrative* Bill Kulkarni Jr., DPM - 02/27/2023 1:42 PM EDT Gout Patient is a pleasant 67-year-old diabetic female following up today on bilateral foot and ankle gout. She states that for the last year she has been taking her allopurinol 100 mg twice per day and has had 0 flareups. States that at the end of November she was able to get some updated labs comes intoday to have these followed up. Physical Vascular: DP PT pulses are intact. Derm: No erythema no open wounds no ulcers no deep nodules. Can easily wiggle ankles and midtarsal. Did review her lab work from November from [facility]: Hemoglobin A1c is 7%, uric acid is 3.6. Assessment and plan Patient is a pleasant type II diabetic female with chronic well-controlled gout. -At this time did cut in half her dosing of allopurinol. Prescription for the next 90 days at 100 mg once daily for 90 days 90 tabs 0 refills. Additionally we will get an updated uric acid next month with a renal panel to try to keep her at this dosing level to try to ideally minimize her required medication. Low medical complexity decision making based on chronicity. documented in this [id number] Miscellaneous Notes* Telephone Encounter - Anna Martinez Pss - 02/18/2023 2:01 PM EDT Patient has been identified by name and date of : Yes Requested Prescriptions Pending Prescriptions Disp Refills dulaglutide (TRULICITY) 3 mg/0.5 mL pen injector 6 mL 3 Sig: Inject 3 mg subcutaneously one time a week. MARIBEL-01/26/23 Labs-01/26/23 NOV-03/12/23 med filled 12/04/22 RX INSTRUCTIONS: It appears there should be refills but patient stated she has no refills. Patient aware RX will be sent to pharmacy. No need to notify patient. Anna Martinez Pss documented in this encounterMemorial Hospital04-12-2023 Miscellaneous Notes* Telephone Encounter - Mago Parish APRN.DWIGHT - 01/28/2023 9:36 AM EDT Orders were placed, thank you. Mago Parish APRN.DWIGHT * Telephone Encounter - Deonna Flores LPN - 01/28/2023 9:23 AM EDT Patient notified of results, verbalizes understanding of instructions. Pt stated to buy iron OTC. Please place lab orders for 1 month. Deonna Flores LPN * Telephone Encounter - Mago Parish APRN.CNP - 01/28/2023 7:17 AM EDT Can you please call the patient and let her know that I reviewed her lab results. Labs are much improved when compared with labs at hospital discharge. Iron is low, this is more than likely due to the previous blood loss. If she would like we can start a daily iron, this should help improve her fatigue. I can order it as a prescription or she can buy it [id number], ferrous sulfate 325 mg twice daily. We can continue to monitor labs. Pending when she sees Dr. Curtis, I am happy to place these lab orders for repeat in 1 month. Please let me know what she prefers. Thank you. Mago Parish APRN.DWIGHT documented in this encounterMemorial Hospital04-07-2023 History of Present illness Narrative* Sonia Margarito ASH - 01/23/2023 1:39 PM EDT TRANSITION CARE MANAGEMENT (TCM) INITIAL CONTACT Repairer Shoe Sticks Outreach Provider Action/FYI: 01/23/23-Message left for pt to call back. Patient returned call questions answered. Patient will be here Thursday for follow up. She is to haveher Hemoglobin rechecked on Thursday. Initial contact with patient post discharge, spoke to remarks: 01/23/23, message left for p to call back. Patient identified by name and . TRANSITION CARE MANAGEMENT INITIAL OUTREACH DOCUMENTATION: Date of Outreach: 01/23/2023 Outreach Attempt 1: Contact Made Date of Discharge 01/21/2023 Some recent data might be hidden SUMMARY: -Pt discharged from [facility] on 04/22/23. -Admitted for: GI bleed, acute Do you have a hospital follow up appointment with your PCP? Appointment on 01/26/23 with Марина. Yes. Remind patient of appointment date, time, and location. If not within 14 calendar days of discharge - please reschedule accordingly. MEDICATIONS: Many patients have questions or concerns about their medications once they are home. Were you prescribed any new medications? If yes, what are those medications? Nadolol 40 mg daily Nystatin 100,000 suspension 4 x a day for 3 days Cefdinir 300 mg BID for 2 days Were you told to hold any medications? No Were any of your medications discontinued? No Do you have any questions about getting or taking your medications? No Your discharge instructions/After visit Summary (AVS) are important in guiding you through the recovery process. Is there anything I might help you understand? No Do you have all the necessary equipment and supplies at home? Yes Medical records from recent hospitalization: [facility] [place] [facility] Progress note Author Toño Curtis [facility] January 20, 2023 1:43pm Note Date/Time January 20, 2023 1:43 pm [facility] Medical Records Department [address] [place] [address] Progress Note 01/20/23 1341 MR#: [id number] Acct: [id number] Name: KRISTA CAMPBELL Rep #:[id number] : 1955 67 From: Tñoo Curtis DO PCP: Dr. Taty Julian MD Status:AD IN Location: [place] [address] Subjective Subjective Patient is doing well. She underwent an upper endoscopy and was discovered to have grade 3 to grade 4 esophageal varices with stigmata of bleeding. 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 Both of which were treated. She is not having any chest pain, shortness of breath. Objective Data Objective Data Vital Signs: Vital Signs Temp Pulse Resp BP Pulse Ox O2 Del Method 98.0 F 75 14 114/66 93 Room Air 01/20/23 08:27 01/20/23 08:27 01/20/23 08:27 01/20/23 08:27 01/20/23 08:27 01/20/23 08:30 Oxygen Delivery Method Room Air Weight: 167 lb 8.821 oz Body Mass Index (BMI) 33.8 Intake & Output: Intake and Output for Last 24 Hours 01/18/23 01/19/23 01/20/23 23:59 23:59 23:59 Intake Total 1585 / 1585 3948.65 / 3948.65 1823.33 / 1823.33 Balance 1585 / 1585 3948.65 / 3948.65 1823.33 / 1823.33 Lab / Micro Data Result Diagrams: 01/20/23 11:10 01/18/23 11:15 Labs: Laboratory Results - last 24 hr 01/18/23 11:15: Crossmatch See Detail 01/19/23 14:10: POC Glucose 113 H 01/19/23 15:37: Hgb 6.9 L, Hct 22.1 L 01/19/23 17:46: POC Glucose 107 H 01/19/23 22:43: POC Glucose 134 H 01/20/23 03:57: WBC 4.4, RBC 2.72 L, Hgb 8.1 L, Hct 25.3 L, MCV 93.0, MCH 29.8, MCHC 32.0, RDW Std Deviation 48.7 H, RDW Coeff of Pete 14.8 H, Plt Count 60 L, MPV 11.0, Immature Gran % (Auto) 0.900, Neut % (Auto) 51.7, Lymph % (Auto) 36.6,[place] % (Auto) 6.4, Eos % (Auto) 3.7, Baso % (Auto) 0.7, Absolute Neuts (auto) 2.3, Absolute Lymphs (auto) 1.59, Nucleated RBC % 0.7 01/20/23 06:43: POC Glucose 182 H 01/20/23 11:10: Hgb 8.6 L, Hct 26.7 L 01/20/23 11:16: POC Glucose 162 H Physical Exam Narrative General: Alert, Oriented x3, Cooperative, No apparent distress HEENT: Atraumatic, PERRLA, EOMI, Normocephalic Oral: Moist Mucosa Neck: Supple, No JVD Lungs: Diminished, Normal air movement, No rhonchi, No wheeze, No rales Cardiovascular: Regular rate, Regular Rhythm, Normal S1, Normal S2, No murmurs Abdomen: Soft, Non Tender, Non-Distended, No Hepato-splenomegaly Extremities: No edema, Capillary Refill Less than 3 Seconds Skin: No rashes, No breakdown Musculoskeletal: No Tenderness to Palpation of Joints or Extremities Neurological: Cranial nerves II-XII grossly intact, Motor Exam 5/5 strength throughout, Sensory exam intact to light touch and pain Psych/Mental Status: Normal Affect, Appropriate Assessment & Plan Assessment/Plan (1) GI (gastrointestinal bleed): PLAN: Plan 1. Upper GI bleed-possibly from esophageal varices versus angiodysplastic lesions/duodenal ulcer-there is no active bleeding seen at the patient's EGD today, patient will be given 1 unit of packed red blood cells due to hemoglobin of 6.9. I placed the patient on gentamicin and vancomycin, but I would switch to Rocephin. #2 acute blood loss anemia-secondary to upper GI bleed from varices and angiodysplastic lesions, patient was transfused 1 unit of packed red blood cells. Hemoglobin seems to be improved. #3 hypothyroidism-patient will remain on Synthroid #4 type 2 diabetes-patient is on sliding scale insulin per fingerstick blood sugars at this time and a clear liquid diet #5 chronic migraines-patient was given Fioricet today for headache, I will writefor every 6 hours as needed for headache Total clinical time spent by myself addressing the patient's medical issues, reviewing all of her data, and collaborating with patient's care team: 35 minutes Charges/Coding Visit Charges Inpatient E&M: 88963 Subs Hosp 01/20/23 1343 <Electronically signed by Toño Curtis DO> Toño Curtis DO Cosigner Signature (if applicable): CC: ~ Signed [facility] Work Phone: 1(476) 461-919504-04-[address] Moreno [facility] January 20, 2023 11:51am Note Date/Time January 20, 2023 11:5 1am [facility] Medical Records Department [address] [place] [address] Progress Note - Hospitalist 01/20/23 1145 MR#: [id number] Acct: [id number] Name: KRISTA CAMPBLEL Rep #:[id number] : 1955 67 From: Gerber rivas MD PCP: Dr. Taty Julian MD Status:AD M IN Location: [place] [address] Subjective Subjective Doing well no issues overnight Objective Data Objective Data Vital Signs: Vital Signs Temp Pulse Resp BP Pulse Ox O2 Del Method 98.0 F 75 14 114/66 93 Room Air 01/20/23 08:27 01/20/23 08:27 01/20/23 08:27 01/20/23 08:27 01/20/23 08:27 01/20/23 08:30 Oxygen Delivery Method Room Air Weight: 167 lb 8.821 oz Body Mass Index (BMI) 33.8 Intake & Output: Intake and Output for Last 24 Hours 01/19/23 01/20/23 01/21/23 03:59 03:59 03:59 Intake Total 2491.66 / 2491.66 3041.99 / 3041.99 1286.66 / 1286.66 Balance 2491.66 / 2491.66 3041.99 / 3041.99 1286.66 / 1286.66 Lab / Micro Data Result Diagrams: 01/20/23 11:10 01/18/23 11:15 Labs: Laboratory Results - last 24 hr 01/18/23 11:15: Crossmatch See Detail 01/19/23 14:10: POC Glucose 113 H 01/19/23 15:37: Hgb 6.9 L, Hct 22.1 L 01/19/23 17:46: POC Glucose 107 H 01/19/23 22:43: POC Glucose 134 H 01/20/23 03:57: WBC 4.4, RBC 2.72 L, Hgb 8.1 L, Hct 25.3 L, MCV 93.0, MCH 29.8, MCHC 32.0, RDW Std Deviation 48.7 H, RDW Coeff of Pete 14.8 H, Plt Count 60 L, MPV 11.0, Immature Gran % (Auto) 0.900, Neut % (Auto) 51.7, Lymph % (Auto) 36.6,[place] % (Auto) 6.4, Eos % (Auto) 3.7, Baso % (Auto) 0.7, Absolute Neuts (auto) 2.3, Absolute Lymphs (auto) 1.59, Nucleated RBC % 0.7 01/20/23 06:43: POC Glucose 182 H 01/20/23 11:10: Hgb 8.6 L, Hct 26.7 L Physical Exam Narrative General: Alert, Oriented x3, Cooperative, No apparent distress HEENT: Atraumatic, PERRLA, EOMI, Normocephalic Oral: Moist Mucosa Neck: Supple, No JVD Lungs: Diminished, Normal air movement, No rhonchi, No wheeze, No rales Cardiovascular: Regular rate, Regular Rhythm, Normal S1, Normal S2, No murmurs Abdomen: Soft, Non Tender, Non-Distended, No Hepato-splenomegaly Extremities: No edema, Capillary Refill Less than 3 Seconds Skin: No rashes, No breakdown Musculoskeletal: No Tenderness to Palpation of Joints or Extremities Neurological: Cranial nerves II-XII grossly intact, Motor Exam 5/5 strength throughout, Sensory exam intact to light touch and pain Psych/Mental Status: Normal Affect, Appropriate Assessment & Plan Assessment/Plan (1) GI (gastrointestinal bleed): PLAN: Plan 1. Upper GI bleed from grade 3 esophageal varices as well as 3 gastric AVMs withacute blood loss anemia ? EGD with grade 3 esophageal varices as well as 3 bleeding AVMs in the stomach and a nonbleeding duodenal ulcer ? Continue with PPI and octreotide ? Continue with Rocephin for prophylaxis ?Hemoglobin is improved on repeat today to 8.6 we will recheck in the morning and if stable could potentially consider discharge 2. DM2 ? Continue with sliding scale insulin ? ACHS ? We will make adjustments as necessary 3. Hypothyroidism ? Stable ? Continue symptom 4. Chronic migraines ? She does have Fioricet available DVT: SCDs Charges/Coding Visit Charges Inpatient E&M: 51205 Subs Hosp L2 01/20/23 1151 <Electronically signed by Gerber Moreno MD> Cosigner Signature (if applicable): CC: ~ Signed [facility] Work Phone: 1(862) 730-247504-03-[address] Kong [facility] January 19, 2023 5:34pm Note Date/Time January 19, 2023 5:07 pm [facility] Medical Records Department [address] [facility] [place] [address] Progress Note - Hospitalist 01/19/23 1702 MR#: [id number] Acct: [id number] Name: KRISTA CAMPBELL CANDIDO Rep #:[id number] : 1955 67 From: Taty Kong DO PCP: Dr. Taty Julian MD Status:AD M IN Location: [place] [address]- 1 Reason for Visit Reason for Visit: Diagnoses Thrombocytopenia, unspecified (01/18/23) Unspecified cirrhosis of liver (01/18/23) Gastrointestinal hemorrhage, unspecified (01/18/23) Abnormal findings on diagnostic imaging of other specified body structures (01/18/23) Subjective Subjective Patient was seen and examined today, she underwent an EGD today which showed esophageal varices, these were banded, she also had AVMs of her stomach which were treated with a heater probe. 1 nonbleeding duodenal ulcer was noted. Patient was placed on IV antibiotics and octreotide drip. My repeat H&H on the patient showed hemoglobin of 6.9, I wrote for one unit of packed red blood cellsto be transfused. Objective Data Objective Data Vital Signs: Vital Signs Temp Pulse Resp BP Pulse Ox O2 Del Method 97.7 F L 83 16 121/71 H 93 Room Air 01/19/23 16:46 01/19/23 16:55 01/19/23 16:55 01/19/23 16:55 01/19/23 16:55 01/19/23 16:55 Oxygen Delivery Method Room Air Weight: 76 kg Body Mass Index (BMI) 33.8 Intake & Output: Intake and Output for Last 24 Hours 01/17/23 01/18/23 01/19/23 23:59 23:59 23:59 Intake Total 1585 / 1585 2258.32 / 2258.32 Balance 1585 / 1585 2258.32 / 2258.32 Lab / Micro Data Result Diagrams: 01/19/23 15:37 01/18/23 11:15 Labs: Laboratory Results - last 24 hr 01/18/23 11:15: PT 14.5, INR 1.2 01/18/23 17:05: Hgb 8.5 L, Hct 26.6 L 01/18/23 20:40: Hgb 8.2 L, Hct 25.4 L 01/19/23 05:35: WBC 6.7, RBC 2.38 L, Hgb 7.0 L, Hct 22.2 L, MCV 93.3, MCH 29.4, MCHC 31.5 L, RDW Std Deviation 50.4 H, RDW Coeff of Pete 15.1 H, Plt Count 72 L, MPV 10.3, Immature Gran % (Auto) 0.700, Neut % (Auto) 50.1, Lymph % (Auto) 39.9,[place] % (Auto) 4.3, Eos % (Auto) 4.6, Baso % (Auto) 0.4, Absolute Neuts (auto) 3.3, Absolute Lymphs (auto) 2.66, Nucleated RBC % 0.6, Platelet Estimate MOD DEC, Hypochromasia 2+, Anisocytosis 1+ 01/19/23 05:35: Magnesium 2.0 01/19/23 05:35: PT 14.8, INR 1.2, APTT 28.3 01/19/23 14:10: POC Glucose 113 H 01/19/23 15:37: Hgb 6.9 L, Hct 22.1 L Physical Exam Const alert, oriented x3, no apparent distress and healthy appearing General Appearance: cooperative, well kempt and well developed Orientation / Consciousness: awake, oriented to person, oriented to place and oriented to time HEENT normocephalic, head/scalp atraumatic and moist oral mucous membranes Eyes PERRL, EOMs intact bilaterally and conjunctivae normal Neck supple, no JVD, thyroid normal and no carotid bruits General: trachea midline Resp normal respiratory effort, no retractions, no use of accessory muscles and clearto auscultation bilaterally Auscultation: Negative for rales, rhonchi or wheezes Cardio regular rate, regular rhythm, S1 normal heart sound, S2 normal heart sound, no murmurs, no rub and no gallops GI normal to inspection, nondistended, normoactive bowel sounds, soft to palpation,non-tender and non-distended Extremity no clubbing, cyanosis or edema Skin no rashes or lesions noted General Skin Exam: no breakdown Neuro oriented x3, CN's II-XII intact bilaterally, moves all extremities, no focal motor deficits and no sensory deficits noted Sensorium / Orientation: awake and alert Speech: speech normal Psych affect normal Assessment & Plan Assessment/Plan (1) GI (gastrointestinal bleed): PLAN: Plan 1. Upper GI bleed-possibly from esophageal varices versus angiodysplastic lesions/duodenal ulcer-there is no active bleeding seen at the patient's EGD today, patient will be given 1 unit of packed red blood cells due to hemoglobin of 6.9. I talked with GI, they had placed the patient on gentamicin and vancomycin, I believe we can try Rocephin on the patient, she has a penicillin allergy but it is not clear what that allergy is. I have asked nursing to clarify that it is not a severe allergy, in the meantime I have written for Rocephin1 g daily and I have discontinued her vancomycin and gentamicin. #2 acute blood loss anemia-secondary to upper GI bleed, patient was transfused 1unit of packed red blood cells #3 hypothyroidism-patient will remain on Synthroid #4 type 2 diabetes-patient is on sliding scale insulin per fingerstick blood sugars at this time and a clear liquid diet #5 chronic migraines-patient was given Fioricet today for headache, I will writefor every 6 hours as needed for headache Total clinical time spent by myself addressing the patient's medical issues, reviewing all of her data, and collaborating with patient's care team: 35 minutes Charges/Coding Visit Charges Inpatient E&M: 33216 Subs Hosp L2 01/19/231710 <Electronically signed by Taty Kong DO> Cosigner Signature (if applicable): CC: ~ Signed ADDENDUM by Dr. Taty Kong DO on 01/19/23 at 1734 Addendum Additional diagnosis: #6 probable cirrhosis of the liver-patient will need follow-up with gastroenterology as an outpatient. 01/19/231733<Electronically signed by Taty Kong DO> Cosigner Signature (if applicable): cc: ~* Signed [facility] Work Phone: [phone]) 778-581304-03-2023 Consult note Author Toño Friend [facility] January 19, 2023 4:20pm Note Date/Time January 19, 2023 4:15 pm [facility] Medical Records Department [address] [place] [address] Consultation - GI 01/18/23 2300 MR#: [id number] Acct: [id number] Name: KRISTA CAMPBELL Rep #:[id number] : 1955 67 From: Toño Curtis DO PCP: Dr. Taty Julian MD Status:AD M IN [facility] HPI Consult Data Date of Consult: 01/18/23 HPI Narrative Reason for Consultation: GI bleed HPI Narrative: KRISTA CAMPBELL, is a 67 F who presents after an episode of hematemesis that occurred this morning.? She states that on Thursday she began to feel nauseous, weak, and shaky.? She has felt that way since and today she attempted to walk tothe bathroom and fell 3 times trying to get there because she felt so weak.? When she got to the bathroom, she felt very nauseous and that is when she threw up a large amount of blood with clots.? She has a history of gastric reflux and takes pantoprazole daily. ? She has not had an endoscopy in almost 20 years.? She does not have a GI doctor.? She states that in June she had a hemoglobin of 8.2 so her PCP placed her on iron supplementation and in November repeat hemoglobin was normal so she stopped her iron.? She denies any melena, hematochezia, abdominal pain, fevers, chills, alcohol use, frequent NSAID use, tobacco use. Upon review of her labs I noticed that she was thrombocytopenic. I requested that she had a CT scan abdomen pelvis and it showed a cirrhotic liver with splenomegaly and signs of varices throughout the abdomen. She did not know thatshe had cirrhosis. She noted she had fatty liver disease. Labs performed in the emergency room showed the patient's white blood cell countto be elevated 18.2, hemoglobin was 9.9, platelet count was 141,000, patient's chemistry profile was remarkable for glucose of 255. CT of the abdomen and pelvis was remarkable for a 12 x 14 mm enhancing nodule onthe wall of the proximal duodenum. [facility] Medical History (Updated 01/19/23 @ 16:[address] Lundberg Friend, DO) Diabetes Migraines Home Medications levothyroxine 50 mcg tablet 75 mcg PO DAILY Check with primary doctor 12/28/13 [History Last Taken Unknown] rizatriptan 10 mg tablet 10 mg PO PRN PRN Migraine Headache 12/28/13 [History Last Taken Unknown] topiramate 100 mg tablet 100 mg PO DAILY Check with primary doctor 12/28/13 [History Last Taken Unknown] Lactobacillus acidophilus (Acidophilus capsule) 10 mg PO DAILY Check with primary doctor 01/18/23 [History Last Taken Unknown] allopurinol 100 mg tablet 100 mg PO BID Check with primary doctor 01/18/23 [History Last Taken Unknown] apple cider vinegar 300 mg tablet 300 mg PO DAILY health maintence 01/18/23 [History Last Taken Unknown] coenzyme Q10 200 mg capsule (Co Q-10) 200 mg PO DAILY Check with primary doctor 01/18/23 [History Last Taken Unknown] cranberry 500 mg capsule 500 mg PO BID Check with primary doctor 01/18/23 [History Last Taken Unknown] cyclosporine 0.05 % eye drops in a dropperette (Restasis) 1 drp ophthalmic (eye)BID health maintenance 01/18/23 [History Last Taken Unknown] dulaglutide 3 mg/0.5 mL subcutaneous pen injector (Trulicity) 3 mg subcut QWEEK Check with primary doctor 01/18/23 [History Last Taken Unknown] erythromycin 5 mg/gram (0.5 %) eye ointment 1 applic ophthalmic (eye) Q healthmaintenance 01/18/23 [History Last Taken Unknown] ezetimibe 10 mg tablet 10 mg PO DAILY Check with primary doctor 01/18/23 [History Last Taken Unknown] fexofenadine 180 mg tablet 180 mg PO DAILY Check with primary doctor 01/18/23 [History Last Taken Unknown] fluorometholone 0.1 % eye drops,suspension 1 drp ophthalmic (eye) BID health maintenance 01/18/23 [History Last Taken Unknown] gabapentin 400 mg tablet 800 mg PO QHS health maintenance 01/18/23 [History Last Taken Unknown] galcanezumab-gnlm 120 mg/mL subcutaneous pen injector (Emgality Pen) 120 mg subcut QMONTH Check with primary doctor 01/18/23 [History Last Taken Unknown] glimepiride 4 mg tablet 4 mg PO DAILY Check with primary doctor 01/18/23 [History Last Taken Unknown] magnesium 200 mg tablet 200 mg PO DAILY Check with primary doctor 01/18/23 [History Last Taken Unknown] metformin 1,000 mg tablet 1,000 mg PO BID diabetic 01/18/23 [History Last Taken Unknown] multivitamin with minerals (Hair,Skin and Nails tablet) 1 tab PO DAILY Check with primary doctor 01/18/23 [History Last Taken Unknown] mhngcgpuhjro-Lo-zehs-minerals 18 mg-0.4 mg tablet 2 tab PO DAILY health maintenance 01/18/23 [History Last Taken Unknown] pantoprazole 40 mg tablet,delayed release 40 mg PO DAILY health maintenance 01/18/23 [History Last Taken Unknown] vit C 250 mg-vit E 90 mg-zinc 40 mg-copper 1 mz-kplsrm-gsaiio capsule (PreserVision AREDS-2) 2 tab PO BID Check with primary doctor 01/18/23 [History Last Taken Unknown] vitamin C 30 mg-zinc citrate 1.1 mg-elderberry 25 mg chewable tablet (Sambucus Elderberry) 1 tab PO DAILY Check with primary doctor 01/18/23 [History Last Taken Unknown] Allergy/AdvReac Type Severity Reaction Status Date / Time ciprofloxacin [From Cipro] Allergy Other Verified 01/18/23 10:39 ciprofloxacin HCl Allergy Other Verified 01/18/23 10:39 [From Cipro] metronidazole Allergy Other Verified 01/18/23 10:39 Penicillins [PCN] Allergy Other Verified 01/18/23 10:39 Sulfa (Sulfonamide Allergy Rash Verified 01/18/23 10:39 Antibiotics) Cnswcyc-Kpl-Wzl Reductase AdvReac Other Verified 01/18/23 10:39 Inhibitor [Ygbvayt-JVS-UiU Reductase Inhibitor] Family History (Updated 01/18/23 @ 17:23 by Aisha Butler) Grandfather Diabetes Grandmother Diabetes Father Heart problem Mother CVA (cerebral vascular accident) Surgical History (Updated 01/18/23 @ 17:23 by Aisha Butler) History of Hx of tonsillectomy Status post left foot surgery Social History Smoking Status: Former smoker ROS Constitutional Constitutional: Denies anorexia, change in weight, chills, fatigue, fever(s), malaise, night sweats or weakness Eyes Eyes: Denies blurry vision, change in vision, discharge from eye(s) or eye pain Cardiovascular Cardiovascular: Denies chest pain, claudication, dyspnea on exertion, edema, lightheadedness, orthopnea or palpitations Respiratory/Chest Respiratory/Chest: Denies cough, hemoptysis, shortness of breath at rest or shortness of breath with exertion Gastrointestinal Gastrointestinal: Reports hematemesis, nausea and vomiting; Denies abdominal pain, constipation, diarrhea, hematochezia or melena Genitourinary Genitourinary: Denies dysuria, hematuria, urinary frequency, urinary hesitancy, urinary incontinence or urinary urgency Musculoskeletal Musculoskeletal: Denies back pain, joint pain, joint stiffness, joint swelling, myalgias or neck pain Neurologic Neurologic: Denies abnormal gait, abnormal speech, confusion, disequilibrium, dizziness, focal weakness, headache(s), loss of vision, numbness, other visual disturbances, paresthesias, syncope or tingling Psychiatric Psychiatric: Denies anxiety, cognitive impairment, depression, irritability, mood swings or suicidal ideation Endocrine Endocrinology: Denies change in body appearance, cold intolerance, excessive sweating, heat intolerance, polydipsia or polyuria Hematologic/Lymphatic Hematologic/Lymphatic: Denies none, anemia, easy bleeding, easy bruising or lymphadenopathy Allergic/Immunologic Allergic/Immunologic: Denies rhinitis, urticaria, eczemia or asthma Physical Exam Const alert, oriented x3, no apparent distress and healthy appearing General Appearance: cooperative, well kempt and well developed Orientation / Consciousness: awake, oriented to person, oriented to place and oriented to time HEENT normocephalic, head/scalp atraumatic and moist oral mucous membranes Eyes PERRL, EOMs intact bilaterally and conjunctivae normal Neck supple, no JVD, thyroid normal and no carotid bruits General: trachea midline Resp normal respiratory effort, no retractions, no use of accessory muscles and clearto auscultation bilaterally Auscultation: Negative for rales, rhonchi or wheezes Cardio regular rate, regular rhythm, S1 normal heart sound, S2 normal heart sound, no murmurs, no rub and no gallops GI normal to inspection, nondistended, normoactive bowel sounds, soft to palpation,non-tender and non-distended Extremity no clubbing, cyanosis or edema Skin no rashes or lesions noted General Skin Exam: no breakdown Neuro oriented x3, CN's II-XII intact bilaterally, moves all extremities, no focal motor deficits and no sensory deficits noted Sensorium / Orientation: awake and alert Speech: speech normal Psych affect normal Lab / Micro Data Result Diagrams: 01/19/23 15:37 01/18/23 11:15 Labs: Laboratory Results - last 24 hr 01/18/23 11:15: PT 14.5, INR 1.2 01/18/23 17:05: Hgb 8.5 L, Hct 26.6 L 01/18/23 20:40: Hgb 8.2 L, Hct 25.4 L 01/19/23 05:35: WBC 6.7, RBC 2.38 L, Hgb 7.0 L, Hct 22.2 L, MCV 93.3, MCH 29.4, MCHC 31.5 L, RDW Std Deviation 50.4 H, RDW Coeff of Pete 15.1 H, Plt Count 72 L, MPV 10.3, Immature Gran % (Auto) 0.700, Neut % (Auto) 50.1, Lymph % (Auto) 39.9,[place] % (Auto) 4.3, Eos % (Auto) 4.6, Baso % (Auto) 0.4, Absolute Neuts (auto) 3.3, Absolute Lymphs (auto) 2.66, Nucleated RBC % 0.6, Platelet Estimate MOD DEC, Hypochromasia 2+, Anisocytosis 1+ 01/19/23 05:35: Magnesium 2.0 01/19/23 05:35: PT 14.8, INR 1.2, APTT 28.3 01/19/23 14:10: POC Glucose 113 H 01/19/23 15:37: Hgb 6.9 L, Hct 22.1 L Assessment & Plan Assessment/Plan (1) GI (gastrointestinal bleed): PLAN: She is on a PPI drip. She will need ceftriaxone IV 1 g every 24 hours. We will assess her for the etiology of her upper GI bleed. She will undergo an upper endoscopy. She was explained alternatives, risk, benefits including outstanding bleeding, infection, sepsis, perforation, need for emergent urgent . She have an ASA of 3. 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 At this time she is not showing any other signs of decompensated cirrhosis. She is not having any signs of encephalopathy, ascites, renal failure. At this time she beau child Rosas class a with a meld of 10. Recommend lactulose 20 cc once a day and titrate up to 3 bowel once a day. Also recommend Xifaxan 5 to 50 mg twice aday. 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 (4) Abnormal CT scan: PLAN: There is a lesion seen in the duodenum. We will perform an upper endoscopy to see if we can locate what this lesion is and if it is intraluminal or extraluminal Charges/Coding Visit Charges Inpatient E&M: 69406 Init Hosp L3 01/19/23 1620 <Electronically signed by Toño Friend DO> Cosigner Signature (if applicable): CC: Dr. Taty uJlian MD~ Signed [facility] Work Phone: 1(752) 243-709304-03-2023 Procedure [facility] [place] 01-19-2023 Procedure [facility] [place]04-02-2023 History and physical note Author Dr. Kong [facility] January 18, 2023 6:25pm Note Date/Time January 18, 2023 6:25 pm [facility] Medical Records Department [address] [place] [address] H&P Exam - Hospitalist 01/18/23 1817 MR#: [id number] Acct: [id number] Name: KRISTA CAMPBELL Rep #:[id number] : 1955 67 From: Taty Kong DO PCP: Dr. Taty Julian MD Status:AD M IN Location: [facility] [id number] HPI - General General Date of Admission: 01/18/23 Date of Service: 01/18/23 Chief Complaint: Hematemesis HPI Narrative KRISTA CAMPBELL, is a 67 F who presents to the emergency room at [facility] after having an episode of hematemesis approximately 930 this morning, patient has had no more episodes today, she does not feel weak or fatigued, patient has never had a history of upper GI bleeds to her knowledge, she was diagnosed with anemia last fall and had a colonoscopy which did not show anything significant according to her, she was placed on iron therapy but taken off this therapy in November 2022, her doctor told her that she did not need theiron anymore that her hemoglobin was normal. We do not have a hemoglobin in this record recently, she is a [facility] patient. Patient states that she feels as if she has "acid" feeling in her stomach. She does take Protonix 40 mg daily on a continuous basis. She denies any frequent use of any nonsteroidals or aspirin. Labs performed in the emergency room showed the patient's white blood cell countto be elevated 18.2, hemoglobin was 9.9, platelet count was 141,000, patient's chemistry profile was remarkable for glucose of 255. CT of the abdomen and pelvis was remarkable for a 12 x 14 mm enhancing nodule onthe wall of the proximal duodenum. Patient was admitted to PCU for upper GI bleed, she was placed on Protonix drip and she will get every 4 hour H&H's drawn, I have elected to keep her on her home medications at this time with the exception of the metformin, I do not think she needs fingerstick blood sugars at this time. I talked briefly with gastroenterology about her care. [facility] Medical History (Updated 01/18/23 @ 17:23 by Aisha Butler) Diabetes Migraines Home Medications diclofenac potassium 50 mg tablet (Cataflam) 50 mg PO PRN PRN Migraine Symptoms 12/28/13 [History Last Taken Unknown] levothyroxine 50 mcg tablet 50 mcg PO DAILY 12/28/13 [History Last Taken Unknown] nadolol 40 mg tablet 40 mg PO DAILY 12/28/13 [History Last Taken Unknown] omeprazole 20 mg capsule,delayed release 20 mg PO DAILY 12/28/13 [History Last Taken Unknown] rizatriptan 10 mg tablet 10 mg PO DAILY 12/28/13 [History Last Taken Unknown] topiramate 100 mg tablet 100 mg PO DAILY 12/28/13 [History Last Taken Unknown] topiramate 50 mg tablet 50 mg PO DAILY 12/28/13 [History Last Taken Unknown] trazodone 50 mg tablet 50 mg PO QHS 12/28/13 [History Last Taken Unknown] ondansetron 4 mg disintegrating tablet 4 mg PO Q6H PRN PRN Nausea #20 tabs 09/25/19 [Rx Last Taken Unknown] Allergy/AdvReac Type Severity Reaction Status Date / Time ciprofloxacin [From Cipro] Allergy Other Verified 01/18/23 10:39 ciprofloxacin HCl Allergy Other Verified 01/18/23 10:39 [From Cipro] metronidazole Allergy Other Verified 01/18/23 10:39 Penicillins [PCN] Allergy Other Verified 01/18/23 10:39 Sulfa (Sulfonamide Allergy Rash Verified 01/18/23 10:39 Antibiotics) [id number] Reductase AdvReac Other Verified 01/18/23 10:39 Inhibitor Family History (Updated 01/18/23 @ 17:23 by Aisha Butler) Grandfather Diabetes Grandmother Diabetes Father Heart problem Mother CVA (cerebral vascular accident) Surgical History (Updated 01/18/23 @ 17:23 by Aisha Butler) History of Hx of tonsillectomy Status post left foot surgery Social History Smoking Status: Former smoker ROS Constitutional Constitutional: Denies anorexia, change in weight, chills, fatigue, fever(s), malaise, night sweats or weakness Eyes Eyes: Denies blurry vision, change in vision, discharge from eye(s) or eye pain Cardiovascular Cardiovascular: Denies chest pain, claudication, dyspnea on exertion, edema, lightheadedness, orthopnea or palpitations Respiratory/Chest Respiratory/Chest: Denies cough, hemoptysis, shortness of breath at rest or shortness of breath with exertion Gastrointestinal Gastrointestinal: Reports hematemesis, nausea and vomiting; Denies abdominal pain, constipation, diarrhea, hematochezia or melena Genitourinary Genitourinary: Denies dysuria, hematuria, urinary frequency, urinary hesitancy, urinary incontinence or urinary urgency Musculoskeletal Musculoskeletal: Denies back pain, joint pain, joint stiffness, joint swelling, myalgias or neck pain Neurologic Neurologic: Denies abnormal gait, abnormal speech, confusion, disequilibrium, dizziness, focal weakness, headache(s), loss of vision, numbness, other visual disturbances, paresthesias, syncope or tingling Psychiatric Psychiatric: Denies anxiety, cognitive impairment, depression, irritability, mood swings or suicidal ideation Endocrine Endocrinology: Denies change in body appearance, cold intolerance, excessive sweating, heat intolerance, polydipsia or polyuria Hematologic/Lymphatic Hematologic/Lymphatic: Denies none, anemia, easy bleeding, easy bruising or lymphadenopathy Allergic/Immunologic Allergic/Immunologic: Denies rhinitis, urticaria, eczemia or asthma Vital Signs Vital Signs Vital Signs: 01/18/23 10:36 01/18/23 11:55 01/18/23 13:26 Temperature 97 F L Temperature Source Temporal Pulse Rate 128 H 106 H Pulse Rate [Lying] 102 H Pulse Rate [Sitting (for 1 minute prior to obtaining)] 113 H Pulse Rate [Standing (for 1 minute prior to obtaining)] 131 H Respiratory Rate 20 H 18 Blood Pressure 116/68 137/70 H Blood Pressure [Lying] 115/72 Blood Pressure [Sitting (for 1 minute prior to obtaining)] 117/74 Blood Pressure [Standing (for 1 minute prior to obtaining)] 111/67 Blood Pressure Mean 84 92 Blood Pressure Mean [Lying] 86 Blood Pressure Mean [Sitting (for 1 minute prior to obtaining)] 88 Blood Pressure Mean [Standing (for 1 minute prior to obtaining)] 81 Blood Pressure Source Blood Pressure Position Blood Pressure Location Pulse Ox 98 99 Oxygen Delivery Method Room Air Room Air 01/18/23 15:37 01/18/23 15:37 01/18/23 17:12 Temperature 97.4 F L 99.2 F H Temperature Source Temporal Oral Pulse Rate 114 H 114 H 109 H Pulse Rate [Lying] Pulse Rate [Sitting (for 1 minute prior to obtaining)] Pulse Rate [Standing (for 1 minute prior to obtaining)] Respiratory Rate 20 H 20 H 16 Blood Pressure 108/81 H 108/81 H 105/71 Blood Pressure [Lying] Blood Pressure [Sitting (for 1 minute prior to obtaining)] Blood Pressure [Standing (for 1 minute prior to obtaining)] Blood Pressure Mean 90 90 82 Blood Pressure Mean [Lying] Blood Pressure Mean [Sitting (for 1 minute prior to obtaining)] Blood Pressure Mean [Standing (for 1 minute prior to obtaining)] Blood Pressure Source Monitor Blood Pressure Position Semi-Fowlers Blood Pressure Location Left Arm Pulse Ox 98 98 97 Oxygen Delivery Method Room Air Room Air Room Air Weight Weight: 76 kg Body Mass Index (BMI) 33.8 Physical Exam Const alert, oriented x3, no apparent distress and healthy appearing General Appearance: cooperative, well kempt and well developed Orientation / Consciousness: awake, oriented to person, oriented to place and oriented to time HEENT normocephalic, head/scalp atraumatic and moist oral mucous membranes Eyes PERRL, EOMs intact bilaterally and conjunctivae normal Neck supple, no JVD, thyroid normal and no carotid bruits General: trachea midline Resp normal respiratory effort, no retractions, no use of accessory muscles and clearto auscultation bilaterally Auscultation: Negative for rales, rhonchi or wheezes Cardio regular rate, regular rhythm, S1 normal heart sound, S2 normal heart sound, no murmurs, no rub and no gallops GI normal to inspection, nondistended, normoactive bowel sounds, soft to palpation,non-tender and non-distended Extremity no clubbing, cyanosis or edema Skin no rashes or lesions noted General Skin Exam: no breakdown Neuro oriented x3, CN's II-XII intact bilaterally, moves all extremities, no focal motor deficits and no sensory deficits noted Sensorium / Orientation: awake and alert Speech: speech normal Psych affect normal Results Lab / Micro Data Result Diagrams: 01/18/23 17:05 01/18/23 11:15 Labs: Laboratory Results - last 24 hr 01/18/23 11:15: WBC 18.2 H, RBC 3.32 L, Hgb 9.9 L, Hct 30.6 L, MCV 92.2, MCH 29.8, MCHC 32.4, RDW Std Deviation 49.5 H, RDW Coeff of Pete 15.0 H, Plt Count 141 L, MPV 10.1, Immature Gran % (Auto) 1.200 H, Neut % (Auto) 73.9 H, Lymph % (Auto) 17.5 L, [place] % (Auto) 6.0, Eos % (Auto) 1.0, Baso % (Auto) 0.4, Absolute Neuts (auto) 13.4 H, Absolute Lymphs (auto) 3.18, Nucleated RBC % 0.3 01/18/23 11:15: Sodium 138, Potassium 4.7, Chloride 107, Carbon Dioxide 20.0 L, Anion Gap 11, BUN 38 H, Creatinine 0.86, Est GFR (MDRD) Af Amer 85, Est GFR (MDRD) Non-Af 70, BUN/Creatinine Ratio 44.2 H, Glucose 255 H, Calcium 9.3, TotalBilirubin 0.50, AST 28, ALT 31, Alkaline Phosphatase 83, Total Protein 7.4, Albumin 3.8, Globulin 3.6, Albumin/Globulin Ratio 1.1 01/18/23 11:15: Blood Type O POSITIVE, Antibody Screen NEGATIVE 01/18/23 11:15: Lipase 211 01/18/23 17:05: Hgb 8.5 L, Hct 26.6 L Radiology Impression Abdomen/Pelvis CT 01/18/23 11:32 IMPRESSION: (NOT LISTED IN ORDER OF SIGNIFICANCE) In the wall of the proximal duodenum, there is an enhancing nodule. This is 12 x 14mm. It is on the lateral wall. Se 2 IM: 40. Se601 IM: 46. This can be a mass or artifact from peristaltic contractions. However, given the patients history, recommend direct visualization with upper endoscopy. This area was underdistended on the prior study so a direct comparison cannot be obtained. There is hepatomegaly with diffuse hepatic enlargement. There is a diffuse contour abnormality of the liver consistent with cirrhotic changes. Other findings as above. Electronically Signed: Nando Núñez MD at 14:38 EDT Reading Location ID and State: [facility] / [place] , Service support , Assessment & Plan Assessment/Plan (1) GI (gastrointestinal bleed): PLAN: Plan 1. Upper GI bleed-etiology unclear at this point, patient was admitted to PCU, serial H&H's will be drawn, patient will be placed on Protonix drip, she will beseen in consultation by gastroenterology. #2 acute blood loss anemia-secondary to upper GI bleed, H&H's will be monitored,patient does not need a blood transfusion at this time #3 hypothyroidism-patient will remain on Synthroid #4 type 2 diabetes-patient is currently on metformin, I have chosen not to monitor blood sugars at this time, patient will be n.p.o. after midnight Total clinical time spent by myself addressing the patient's medical issues, reviewing all of her data, and collaborating with patient's care team: 55 minutes Charges/Coding Visit Charges Inpatient E&M: 86351 Init Hosp L2 01/18/23 1825 <Electronically signed by Taty Kong DO> Cosigner Signature (if applicable): CC: Dr. Taty Julian MD; Dr. Taty Kong DO~ Signed [facility] Work Phone: [phone]) 708-732404-02-[address] Macario [facility] January 18, 2023 6:22pm Note Date/Time January 18, 2023 10:5 7am [facility] Medical Records Department [address] [place] [address] Emergency Department Summary 01/18/23 MR#: [id number] Acct: [id number] Name: KRISTA CAMPBELL CANDIDO Rep #:[id number] : 1955 67 From: Daiana COLON PCP: Dr. Taty Julian MD Status:AD M IN Location: [place] [address] HPI <DARLENE Friedman - Last Filed: 01/18/23 16:53> History of Present Illness Chief Complaint: Nausea/Vomiting Narrative Narrative: Patient presenting today after an episode of hematemesis that occurred this morning. She states that on Thursday she began to feel nauseous, weak, and shaky. She has felt that way since and today she attempted to walk to the bathroom andfell 3 times trying to get there because she felt so weak. When she got to the bathroom, she felt very nauseous and that is when she threw up a large amount ofblood with clots. She has a history of gastric reflux and takes pantoprazole daily. She has not had an endoscopy in almost 20 years. She does not have a GIdoctor. She states that in June she had a hemoglobin of 8.2 so her PCP placed her on iron supplementation and in November repeat hemoglobin was normal so she stopped her iron. She denies any melena, hematochezia, abdominal pain, fevers, chills, alcohol use, frequent NSAID use, tobacco use. [facility] <DARLENE Friedman - Last Filed: 01/18/23 16:53> [facility] Medical History (Updated 01/18/23 @ 17:23 by Aisha Butler) Diabetes Migraines Home Medications diclofenac potassium 50 mg tablet (Cataflam) 50 mg PO PRN PRN Migraine Symptoms 12/28/13 [History Last Taken Unknown] levothyroxine 50 mcg tablet 50 mcg PO DAILY 12/28/13 [History Last Taken Unknown] nadolol 40 mg tablet 40 mg PO DAILY 12/28/13 [History Last Taken Unknown] omeprazole 20 mg capsule,delayed release 20 mg PO DAILY 12/28/13 [History Last Taken Unknown] rizatriptan 10 mg tablet 10 mg PO DAILY 12/28/13 [History Last Taken Unknown] topiramate 100 mg tablet 100 mg PO DAILY 12/28/13 [History Last Taken Unknown] topiramate 50 mg tablet 50 mg PO DAILY 12/28/13 [History Last Taken Unknown] trazodone 50 mg tablet 50 mg PO QHS 12/28/13 [History Last Taken Unknown] ondansetron 4 mg disintegrating tablet 4 mg PO Q6H PRN PRN Nausea #20 tabs 09/25/19 [Rx Last Taken Unknown] Allergy/AdvReac Type Severity Reaction Status Date / Time ciprofloxacin [From Cipro] Allergy Other Verified 01/18/23 10:39 ciprofloxacin HCl Allergy Other Verified 01/18/23 10:39 [From Cipro] metronidazole Allergy Other Verified 01/18/23 10:39 Penicillins [PCN] Allergy Other Verified 01/18/23 10:39 Sulfa (Sulfonamide Allergy Rash Verified 01/18/23 10:39 Antibiotics) [id number] Reductase AdvReac Other Verified 01/18/23 10:39 Inhibitor Family History (Updated 01/18/23 @ 17:23 by Aisha Butler) Grandfather Diabetes Grandmother Diabetes Father Heart problem Mother CVA (cerebral vascular accident) Surgical History (Updated 01/18/23 @ 17:23 by Aisha Butler) History of Hx of tonsillectomy Status post left foot surgery Social History Smoking Status: Former smoker ROS <DARLENE Friedman - Last Filed: 01/18/23 16:53> ROS ED Constitutional Constitutional ED: Denies chills, fever(s) or sweats Eyes Eyes: Denies blurry vision or diplopia Cardiovascular Cardiovascular: Denies chest pain or palpitations Respiratory/Chest Respiratory/Chest: Denies cough or dyspnea Gastrointestinal Gastrointestinal: Reports hematemesis, nausea and vomiting; Denies abdominal pain, constipation or diarrhea Genitourinary Genitourinary ED: Denies dysuria, hematuria or urinary urgency Musculoskeletal Musculoskeletal: Denies arthralgias, back pain or myalgias Integumentary Denies abscess, Abrasions or rash Neurologic Neurologic: Reports weakness; Denies dizziness Psychiatric Psychiatric: Denies anxiety, depression, suicidal ideation or suicidal thoughts EXAM <DARLENE Friedman - Last Filed: 01/18/23 16:53> Physical Exam Const Vital Signs: 01/18/23 10:36 01/18/23 11:55 01/18/23 13:26 Temperature 97 F L Temperature Source Temporal Pulse Rate 128 H 106 H Pulse Rate [Lying] 102 H Pulse Rate [Sitting (for 1 minute prior to obtaining)] 113 H Pulse Rate [Standing (for 1 minute prior to obtaining)] 131 H Respiratory Rate 20 H 18 Blood Pressure 116/68 137/70 H Blood Pressure [Lying] 115/72 Blood Pressure [Sitting (for 1 minute prior to obtaining)] 117/74 Blood Pressure [Standing (for 1 minute prior to obtaining)] 111/67 Blood Pressure Mean 84 92 Blood Pressure Mean [Lying] 86 Blood Pressure Mean [Sitting (for 1 minute prior to obtaining)] 88 Blood Pressure Mean [Standing (for 1 minute prior to obtaining)] 81 Pulse Ox 98 99 Oxygen Delivery Method Room Air Room Air Positive well nourished, well developed and no apparent distress General Appearance ED: well developed HEENT Reports normocephalic and head/scalp atraumatic Mouth ED: Yes moist mucous membranes normal Eyes PERRL and EOMs intact bilaterally Neck full ROM and supple Chest Wall inspection of chest normal Resp normal respiratory effort and clear to auscultation bilaterally Cardio regular rate and regular rhythm GI soft to palpation, non-tender, non-distended and no masses Back/Spine normal ROM and normal to inspection Extremity normal to inspection and full ROM Neuro oriented x3, CN's II-XII intact bilaterally, moves all extremities, no focal motor deficits and no sensory deficits noted Sensorium / Orientation: awake and alert Psych mental status grossly normal and thought process normal Skin no rashes or lesions noted and no wounds <Dr. Asad Macario DO - Last Filed: 01/18/23 18:22> Physical Exam Const Vital Signs: 01/18/23 10:36 01/18/23 11:55 01/18/23 13:26 Temperature 97 F L Temperature Source Temporal Pulse Rate 128 H 106 H Pulse Rate [Lying] 102 H Pulse Rate [Sitting (for 1 minute prior to obtaining)] 113 H Pulse Rate [Standing (for 1 minute prior to obtaining)] 131 H Respiratory Rate 20 H 18 Blood Pressure 116/68 137/70 H Blood Pressure [Lying] 115/72 Blood Pressure [Sitting (for 1 minute prior to obtaining)] 117/74 Blood Pressure [Standing (for 1 minute prior to obtaining)] 111/67 Blood Pressure Mean 84 92 Blood Pressure Mean [Lying] 86 Blood Pressure Mean [Sitting (for 1 minute prior to obtaining)] 88 Blood Pressure Mean [Standing (for 1 minute prior to obtaining)] 81 Pulse Ox 98 99 Oxygen Delivery Method Room Air Room Air MDM <DARLENE Friedman - Last Filed: 01/18/23 16:53> MDM MDM Narrative Medical decision making narrative: Patient presenting with weakness and an episode of emesis that occurred this morning. She denies any blood in her stool. This has never happened before. She has a history of GERD and takes pantoprazole daily. No alcohol, tobacco, orfrequent NSAID use. She does not have a GI doctor. She did show me a picture of her vomit and it is consistent with coffee-ground emesis. she has been given protonix, IV fluids, Zofran. Obtain a leukocytosis, anemia, assess kidney function, rule out elevated liver enzymes, and to check a lipase to rule out pancreatitis. Patient does have leukocytosis, BUN 38, lipase WNL, H&H 9.[address] scan of the abdomen and pelvis obtained and shows enhancing nodule in the proximal duodenum. Dr. Curtis has been spoken to and he states he will see the patient tomorrow as she will need an endoscopy. Hospitalist has been paged and patient will be admitted to the hospital in stable condition. She is comfortable with plan. Lab Data Attestation: I reviewed the patient's lab results. Lab results narrative: WBC 8-2, hemoglobin 9.9, hematocrit 30.6, platelet count 141, lipase WNL Labs: Laboratory Results - last 24 hr 01/18/23 01/18/23 01/18/23 11:15 11:15 11:15 WBC 18.2 H RBC 3.32 L Hgb 9.9 L Hct 30.6 L MCV 92.2 MCH 29.8 MCHC 32.4 RDW Std Deviation 49.5 H RDW Coeff of Pete 15.0 H Plt Count 141 L MPV 10.1 Immature Gran % (Auto) 1.200 H Neut % (Auto) 73.9 H Lymph % (Auto) 17.5 L [place] % (Auto) 6.0 Eos % (Auto) 1.0 Baso % (Auto) 0.4 Absolute Neuts (auto) 13.4 H Absolute Lymphs (auto) 3.18 Nucleated RBC % 0.3 Sodium 138 Potassium 4.7 Chloride 107 Carbon Dioxide 20.0 L Anion Gap 11 BUN 38 H Creatinine 0.86 Est GFR (MDRD) Af Amer 85 Est GFR (MDRD) Non-Af 70 BUN/Creatinine Ratio 44.2 H Glucose 255 H Calcium 9.3 Total Bilirubin 0.50 AST 28 ALT 31 Alkaline Phosphatase 83 Total Protein 7.4 Albumin 3.8 Globulin 3.6 Albumin/Globulin Ratio 1.1 Lipase Blood Type O POSITIVE Antibody Screen NEGATIVE 01/18/23 11:15 WBC RBC Hgb Hct MCV MCH MCHC RDW Std Deviation RDW Coeff of Pete Plt Count MPV Immature Gran % (Auto) Neut % (Auto) Lymph % (Auto) [place] % (Auto) Eos % (Auto) Baso % (Auto) Absolute Neuts (auto) Absolute Lymphs (auto) Nucleated RBC % Sodium Potassium Chloride Carbon Dioxide Anion Gap BUN Creatinine Est GFR (MDRD) Af Amer Est GFR (MDRD) Non-Af BUN/Creatinine Ratio Glucose Calcium Total Bilirubin AST ALT Alkaline Phosphatase Total Protein Albumin Globulin Albumin/Globulin Ratio Lipase 211 Blood Type Antibody Screen Radiography Diagnostic Testing: Clinical Impression(s) from Imaging Studies Abdomen/Pelvis CT 01/18/23 11:32 IMPRESSION: (NOT LISTED IN ORDER OF SIGNIFICANCE) In the wall of the proximal duodenum, there is an enhancing nodule. This is 12 x 14mm. It is on the lateral wall. Se 2 IM: 40. Se601 IM: 46. This can be a mass or artifact from peristaltic contractions. However, given the patients history, recommend direct visualization with upper endoscopy. This area was underdistended on the prior study so a direct comparison cannot be obtained. There is hepatomegaly with diffuse hepatic enlargement. There is a diffuse contour abnormality of the liver consistent with cirrhotic changes. Other findings as above. Electronically Signed: Nando Núñez MD at 14:38 EDT Reading Location ID and State: [facility] / [place] , Service support , CT also reviewed and interpreted by attending ED physician. <Dr. Asad Macario, DO - Last Filed: 01/18/23 18:22> [facility] Narrative Medical decision making narrative: Patient presenting with weakness and an episode of emesis that occurred this morning. She denies any blood in her stool. This has never happened before. She has a history of GERD and takes pantoprazole daily. No alcohol, tobacco, orfrequent NSAID use. She does not have a GI doctor. She did show me a picture of her vomit and it is consistent with coffee-ground emesis. she has been given protonix, IV fluids, Zofran. Obtain a leukocytosis, anemia, assess kidney function, rule out elevated liver enzymes, and to check a lipase to rule out pancreatitis. Patient does have leukocytosis, BUN 38, lipase WNL, H&H 9.[address] scan of the abdomen and pelvis obtained and shows enhancing nodule in the proximal duodenum. Dr. Curtis has been spoken to and he states he will see the patient tomorrow as she will need an endoscopy. Hospitalist has been paged and patient will be admitted to the hospital in stable condition. She is comfortable with plan. This patient was seen with a PA/MARKET[employer] PROGRAMS SPECIALIST Individually assessed they patient including history and physical. I have reviewed everything on the chart that is availableand agree with the documentation provided by the PA/MARKETING PROGRAMS SPECIALIST including discussion about the assessment, treatment plan, discussion, and return precautions. Patient presenting with hematemesis. She has a history of GERD and does not believe she has history of ulcers. Been sick since Thursday after eating some spaghetti with red sauce. She had 1 episode of hematemesis today. Patient is able to pride pictures. Blood work shows a leukocytosis of 18,000. Hemoglobin is 9.9 with a previous hemoglobin of greater than 15. She does have low platelets at 141. Renal function and electrolytes within normal limits. BUN iselevated with normal renal function suggesting GI bleed. Liver function and lipase are normal. She was typed and screened. Started on Protonix drip. Discussed with Dr. Curtis who is amenable to seeing her in the hospital. CT of the abdomen pelvis was obtained and shows an enhancing nodule in the wall of theproximal duodenum 12 x 14mm. Patient admitted in stable condition. Impression: 1. acute blood loss anemia 2. Leukocytosis 3. Upper GI bleed 4. Thrombocytopenia Lab Data Labs: Laboratory Results - last 24 hr 01/18/23 01/18/23 01/18/23 11:15 11:15 11:15 WBC 18.2 H RBC 3.32 L Hgb 9.9 L Hct 30.6 L MCV 92.2 MCH 29.8 MCHC 32.4 RDW Std Deviation 49.5 H RDW Coeff of Pete 15.0 H Plt Count 141 L MPV 10.1 Immature Gran % (Auto) 1.200 H Neut % (Auto) 73.9 H Lymph % (Auto) 17.5 L [place] % (Auto) 6.0 Eos % (Auto) 1.0 Baso % (Auto) 0.4 Absolute Neuts (auto) 13.4 H Absolute Lymphs (auto) 3.18 Nucleated RBC % 0.3 Sodium 138 Potassium 4.7 Chloride 107 Carbon Dioxide 20.0 L Anion Gap 11 BUN 38 H Creatinine 0.86 Est GFR (MDRD) Af Amer 85 Est GFR (MDRD) Non-Af 70 BUN/Creatinine Ratio 44.2 H Glucose 255 H Calcium 9.3 Total Bilirubin 0.50 AST 28 ALT 31 Alkaline Phosphatase 83 Total Protein 7.4 Albumin 3.8 Globulin 3.6 Albumin/Globulin Ratio 1.1 Lipase Blood Type O POSITIVE Antibody Screen NEGATIVE 01/18/23 11:15 WBC RBC Hgb Hct MCV MCH MCHC RDW Std Deviation RDW Coeff of Pete Plt Count MPV Immature Gran % (Auto) Neut % (Auto) Lymph % (Auto) [place] % (Auto) Eos % (Auto) Baso % (Auto) Absolute Neuts (auto) Absolute Lymphs (auto) Nucleated RBC % Sodium Potassium Chloride Carbon Dioxide Anion Gap BUN Creatinine Est GFR (MDRD) Af Amer Est GFR (MDRD) Non-Af BUN/Creatinine Ratio Glucose Calcium Total Bilirubin AST ALT Alkaline Phosphatase Total Protein Albumin Globulin Albumin/Globulin Ratio Lipase 211 Blood Type Antibody Screen Radiography Diagnostic Testing: Clinical Impression(s) from Imaging Studies Abdomen/Pelvis CT 01/18/23 11:32 IMPRESSION: (NOT LISTED IN ORDER OF SIGNIFICANCE) In the wall of the proximal duodenum, there is an enhancing nodule. This is 12 x 14mm. It is on the lateral wall. Se 2 IM: 40. Se601 IM: 46. This can be a mass or artifact from peristaltic contractions. However, given the patients history, recommend direct visualization with upper endoscopy. This area was underdistended on the prior study so a direct comparison cannot be obtained. There is hepatomegaly with diffuse hepatic enlargement. There is a diffuse contour abnormality of the liver consistent with cirrhotic changes. Other findings as above. Electronically Signed: Nando Núñez MD at 14:38 EDT , Discharge Plan Dx/Rx/DC Orders Clinical Impression: GI (gastrointestinal bleed) Disposition Disposition: [facility] Discharge Date/Time: 01/18/23 16:43 What to do if you have Problems For any increased pain, shortness of breath, bleeding, nausea or vomiting, chestpain, or any unexpected problems, contact your Primary Care Provider. Call [facility] ([phone]) or report to the closest Emergency Room. Call 911 if necessary. 01/18/23 1653 <Electronically signed by Daiana COLON> Cosigner Signature (if applicable): 01/18/23 1822 <Electronically signed by Asad Macraio DO> CC: Dr. Taty Julian MD ~ Signed [facility] Work Phone: [phone]) 592-463703-21-2023 Miscellaneous Notes* Telephone Encounter - Taty Julian MD - 01/06/2023 4:57 PM EDT Noted Taty Julian MD * Telephone Encounter - Nina Gamble RN - 01/06/2023 3:35 PM EDT Pt called and is notified of providers message and instructions. Pt voices understanding. Called [facility] and they report the Farxiga had been removed from the Pts medication list. Updated med list anremoved Crestor. Nina Gamble RN * Telephone Encounter - Taty Julian MD - 01/06/2023 3:06 PM EDT OK to call and cancel Farxiga I have ordered Zetia to use instead of Crestor; Zetia is a different class of medication so it should not cause the muscle issues Taty Julian MD * Telephone Encounter - Santa Barreto RN - 01/06/2023 10:25 AM EDT Patient calling with two requests/updates: [facility] they will not fill her Trulicity prescription because she has Farxiga ordered as well. She is asking if PCP office would contact pharmacyand cancel the Farxiga? Patient states she started taking rosuvastatin as recently ordered for her by Dr. Julian, and about 3 weeks after she started taking it her legs hurt and she "couldn't walk". Patient states she has stopped taking this medication. Asking Dr. Julian if there is another medication she should try or wait and discuss this at her next appt in February? Please advise patient. Thank you. documented in this [facility] History of Present illness Narrative* Taty Julian MD - 12/04/2022 8:40 AM EST Chief Complaint Patient presents with: F/U 6 Month HPI Krista Campbell is a 67 year old female who presents here today for a 6 month follow up. Pt here today for a 6 month follow up and lab review. GERD/Choking - On current regimen of Protonix 40 mg once daily. Notes increased choking episodes with drinking fluids or food. This has seemed to increase since her last OV. After having an episode she experienced a tingling/burning sensation in her chest. Pt notes choking on juice from a grape or water. Cuts food up into very small pieces and chews her food. Anemia - Previously took Iron, but has been off this and monitoring through labs. Thyroid - Stable on her current regimen of Levothyroxine 75 mcg once daily. DM - Checks sugars once daily with FBS ranging from 98-130. She has been off the Trulicity for 2 weeks due to shortage, taking Farxiga and FBS around 150's. She denies any low blood sugars or neuropathy symptoms. 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 Pt on current regimen of Metformin 1,000 mg 1 tab po bid, Amaryl 4 mg 2 tabs o once daily and Trulicity 3 mg weekly. Due to shortage of Trulicity pt was started on Farxiga recently. Picked up Trulicity Rx to restart. Does try to watch her diet. Lipids - Currently on no medications at this time. Does try to watch her diet with portion sizes and sugar intake. Not able to exercise due to foot surgery in June. Has lost some weight. Has never taken statin medication. LFT - Hx of LFT. Trying to watch her diet to manage DM. Gout - Following with Podiatry, Dr. Kulkarni. Also being seen for plantar fascitis and closed displaced fracture. Had surgery in June after she had a fall. Pt takes Allopurinol 100 mg bid. Migraines - Follows with Neuro, Dr. Thapa. Has month Emgality injections and will use Maxalt prn. Wast started back on Gabapentin 400 mg 2 at bedtime due to increased migraines and sleep issues. HM - DM foot Exam completed. DM Eye exam, seen every 3-6 months. Declines depression. Has Adv Dir/Living Will. Past medical history, appointments, medications, allergies reviewed. Previous Medical History PAST MEDICAL HISTORY Diagnosis Date Arthritis in Hands Cervical disc disease Diabetes (HCC) Gout Macular degeneration Other forms of migraine Personal history of colonic polyps Snoring does not use C-pap Thyroid disease Previous Surgical History PAST SURGICAL HISTORY Procedure Laterality Date ABDOMINAL SURGERY HX DELIVERY ONLY , low cervical COLONOSCOPY 07/11/2022 repeat in 5 years COLONOSCOPY FLX DX W/COLLJ SPEC WHEN PFRMD 01/09/2010 Colonoscopy COLONOSCOPY FLX DX W/COLLJ SPEC WHEN PFRMD 01/15/2011 COLONOSCOPY FLX DX W/COLLJ SPEC WHEN PFRMD 03/27/2016 Colonoscopy COLONOSCOPY FLX DX W/COLLJ SPEC WHEN PFRMD 06/08/2017 Colonoscopy DILATION & CURETTAGE DX&/THER NONOBSTETRIC Dilation & curettage ESOPHAGOGASTRODUODENOSCOPY TRANSORAL DIAGNOSTIC 01/2004 EGD ESOPHAGOGASTRODUODENOSCOPY TRANSORAL DIAGNOSTIC 03/29/2018 EGD FRACTURE SURGERY LIG/TRNSXJ FLP TUBE ABDL/VAG APPR UNI/BI STEREOTACTIC CORE BIOPSY 07/13/2007 LEFT BREAST- benign TONSILLECTOMY HX TONSILLECTOMY PRIMARY/SECONDARY <AGE 12 Family History FAMILY HISTORY Problem Relation Age of Onset Diabetes Mother Hypertension Mother Hypertension Father Diabetes Father Patient Allergies ALLERGIES Allergen Reactions Cipro [Ciprofloxaci* Hives Metronidazole Hives Penicillins Rash Age 19 -- rash all over, hives Sulfa (Sulfonamide * Rash Current Medications Current Outpatient Medications on File Prior to Visit Medication Sig dapagliflozin (FARXIGA) 5 mg tablet Take 1 tablet by mouth daily with breakfast. ferrous sulfate 325 mg (65 mg iron) tablet Take 1 tablet by mouth twice daily with meals. pantoprazole DR (PROTONIX) 40 mg tablet Take 1 tablet by mouth once daily. levothyroxine (SYNTHROID) 75 mcg tablet Take 1 tablet by mouth once daily. fexofenadine (JACQUELINE ALLERGY) 180 mg tablet Take 1 tablet by mouth once daily. glimepiride (AMARYL) 4 mg tablet Take 2 tablets by mouth daily with breakfast. metFORMIN (GLUCOPHAGE) 1,000 mg tablet Take 1 tablet by mouth twice daily with meals. dulaglutide (TRULICITY) 3 mg/0.5 mL pen injector Inject 3 mg subcutaneously one time a week. vitamin C-biotin (YNQR-YNDS-DPJXX, VIT C-BIOTIN,) 50 mg -1,250 mcg chew Take 2 tablets by mouth once daily. coenzyme Q10 (CO Q-10) 100 mg cap capsule Take 2 capsules by mouth once daily. EMGALITY PEN 120 mg/mL pen Inject 120 mg subcutaneously once every month. fluorometholone (FML LIQUID FILM) 0.1 % ophthalmic suspension XIIDRA 5 % dpet Use 1 Drop in both eyes twice daily. cranberry fruit extract (CRANBERRY ORAL) Take by mouth. rizatriptan (MAXALT) 10 mg tablet Apple Cider Vinegar 300 mg tab Take 1 tablet by mouth twice daily. MV-MN/FOLIC ACID/CALCIUM/VIT K (ONE-A-DAY WOMEN'S 50 PLUS ORAL) Take by mouth. L.ACID/L.CASEI/B.BIF/B.MINDA/FOS (PROBIOTIC BLEND ORAL) Take by mouth. cycloSPORINE (RESTASIS) 0.05 % ophthalmic emulsion Use 1 Drop in both eyes twice daily. ERYTHROMYCIN BASE (ERYTHROMYCIN OPHTHALMIC) Use in eyes. VIT C/NARCISA AC/LUT/COPPER/ZNOX (PRESERVISION LUTEIN ORAL) Take 1 tablet by mouth twice daily. No current facility-administered medications on file prior to visit. Social History Social History Tobacco Use Smoking status: Former Packs/day: 0.25 Years: 3.00 Pack years: 0.75 Types: Cigarettes Quit date: 06/08/1975 Years since quittin.5 Smokeless tobacco: Never Vaping Use Vaping Use: Never used Substance Use Topics Alcohol use: Yes Comment: rare, once a year Drug use: No EXAM: BP 132/86 (BP Site: Left Arm, BP Position: Sitting, BP Cuff Size: Regular Adult) Pulse 72 Resp 16 Wt 76.7 kg (169 lb) LMP 01/31/2005 BMI 34.13 kg/m General Appearance: Well appearing, alert, in no acute distress, well-hydrated, well nourished.. Neck: Supple, no adenopathy; thyroid symmetric, normal size, no bruits. Lungs: Lungs clear to auscultation. No wheezing, rhonchi, rales.. Heart: RRR without murmur, gallop, or rubs. No ectopy. Health Maintenance List DIABETIC FOOT EXAM due on 05/24/2022 DILATED RETINAL EXAM due on 08/19/2022 ADVANCE DIRECTIVE DISCUSSION due on 10/19/2022 DEPRESSION ASSESSMENT Never done MAMMOGRAM due on 12/13/2022 HBA1C due on 11/28/2022 LDL CHOLESTEROL due on 02/18/2023 URINE ALBUMIN:CREATININE RATIO due on 05/28/2023 ANNUAL PCP TEAM CHRONIC DISEASE VISIT due on 06/02/2023 COLORECTAL CANCER SCREENING due on 07/11/2027 DTAP,TDAP,TD(3 - Td or Tdap) due on 12/01/2028 BONE DENSITY Completed INFLUENZA Completed HEPATITIS C SCREENING Completed SHINGRIX VACCINE Completed COVID-19 VACCINE Completed PNEUMOCOCCAL: 65+ Completed Data reviewed Appointment on 11/27/2022 Component Date Value Protein, Total 11/27/2022 8.0 Albumin 11/27/2022 4.7 Calcium, Total 11/27/2022 9.6 Bilirubin, Total 11/27/2022 0.7 Alkaline Phosphatase 11/27/2022 111 AST 11/27/2022 41 (A) ALT 11/27/2022 32 Glucose 11/27/2022 155 (A) BUN 11/27/2022 15 Creatinine 11/27/2022 0.67 Sodium 11/27/2022 138 Potassium 11/27/2022 4.2 Chloride 11/27/2022 100 CO2 11/27/2022 26 Anion Gap 11/27/2022 12 Estimated Glomerular Kyle* 11/27/2022 96 Cholesterol, Total 11/27/2022 225 (A) Triglyceride 11/27/2022 219 (A) HDL Cholesterol 11/27/2022 38 (A) Non HDL Cholesterol 11/27/2022 187 (A) Fasting Time 11/27/2022 12 VLDL Cholesterol 11/27/2022 44 (A) TC:HDL Ratio 11/27/2022 5.92 (A) LDL Cholesterol 11/27/2022 143 (A) LDL:HDL Ratio 11/27/2022 3.76 (A) Hemoglobin A1C 11/27/2022 7.0 (A) Estimated Average Glucose 11/27/2022 154 WBC 11/27/2022 5.88 RBC 11/27/2022 4.81 Hemoglobin 11/27/2022 14.3 Hematocrit 11/27/2022 44.3 MCV 11/27/2022 92.1 MCH 11/27/2022 29.7 MCHC 11/27/2022 32.3 RDW-CV 11/27/2022 15.0 Platelet Count 11/27/2022 80 (A) MPV 11/27/2022 11.4 Absolute nRBC 11/27/2022 <0.01 Uric Acid 11/27/2022 3.6 TSH 11/27/2022 2.370 Vitamin B12 11/27/2022 663 ASSESSMENT/PLAN: 1. Type 2 diabetes mellitus without complication, without long-term current use of insulin (HCC) - ICD9: 250.00, ICD10: E11.9 (primary diagnosis) Controlled. - Continue current medications - GLIMEPIRIDE 4 MG TABLET - TRULICITY 3 MG/0.5 ML SUBCUTANEOUS PEN INJECTOR - METFORMIN 1,000 MG TABLET - COMP METABOLIC PANEL - HGB A1C 2. Hypothyroidism, unspecified type - ICD9: 244.9, ICD10: E03.9 - Instructed patient on importance of taking on an empty stomach either first thing in the morning or at bedtime. - Stable, cont to monitor - LEVOTHYROXINE 75 MCG TABLET 3. Hyperlipidemia, mixed - ICD9: 272.2, ICD10: E78.2 - suboptimal control - Begin treatment with rosuvastatin (Crestor) - LIPID PANEL BASIC - ROSUVASTATIN 10 MG TABLET 4. Elevated LFTs - ICD9: 790.6, ICD10: R79.89 - Cont monitoring - Work on diet - COMP METABOLIC PANEL 5. Anemia, unspecified type - ICD9: 285.9, ICD10: D64.9 - Stable w/out medication - CBC + DIFF 6. Gout, unspecified cause, unspecified chronicity, unspecified site - ICD9: 274.9, ICD10: M10.9 - Stable - Continue current medication regimen. - URIC ACID BLOOD 7. Choking episode - ICD9: 784.99, ICD10: R09.89 Consult ENT for evaluation 8. Epigastric pain - ICD9: 789.06, ICD10: R10.13 - Continue current medication regimen. 9. Cough - ICD9: 786.2, ICD10: R05.9 - Continue current medication regimen. - FEXOFENADINE 180 MG TABLET 10. Globus sensation - ICD9: 784.99, ICD10: R09.89 - Continue current medication regimen. - PANTOPRAZOLE 40 MG TABLET,DELAYED RELEASE 11. Intractable migraine without aura and without status migrainosus - ICD9: 346.11, ICD10: G43.019 - Cont f/u with Dr. Thapa - Continue current medication regimen. 3 mo f/u with labs I agree with the Chief Complaint, ROS, and Past Histories independently gathered by the clinical product support specialist and the remaining scribed note accurately describes my personal service to the patient. Medical Decision Making: Problems: Moderate: 2+ stable chronic illnesses Data: Unique test result(s) reviewed: 3+ Unique test(s) ordered: 3+ Risk: Moderate: Drug management Medical Decision Making Level: 4 - Moderate Taty Julian MD The documentation for this note was completed by Carmen Mckeon Ma acting as scribe for Taty Julian MD. December 04, 2022 8:58 AM. Carmen Mckeon Ma documented in this encounterMem[facility]02-02-2023 Miscellaneous Notes* Addendum Note - Mago Parish APRN.CNP - 11/20/2022 10:30 AM ESTAddended by: MAGO PARISH on: 11/20/2022 10:30 AM Modules accepted: Orders * Telephone Encounter - Mago Parish APRN.CNP - 11/20/2022 10:30 AM EST The following approved medication requests have been transmitted electronically. Requested Prescriptions Signed Prescriptions Disp Refills dapagliflozin (FARXIGA) 5 mg tablet 30 tablet 5 Sig: Take 1 tablet by mouth daily with breakfast. Authorizing Provider: MAGO PARISH APRN.CNP * Telephone Encounter - Deonna Flores LPN - 11/20/2022 10:13 AM EST Patient notified of recommendations, verbalizes understanding of instructions. Pt decided on Farxiga tablets. Deonna Flores LPN * Telephone Encounter - Mago Parish APRN.CNP - 11/20/2022 10:08 AM EST Can you please call the patient and let her know some medication options include Victoza, which is a once daily injection or Farxiga which is a tablet. Unfortunately many of the once weekly injectable medications are all on backorder. I am happy to order one of these medications to replace the Trulicity. Please let me know what she prefers. Thank you. Mago Parish APRN.DWIGHT * Telephone Encounter - Nelda Palma RN - 11/19/2022 9:08 AM EST Patient calls to let provider know that Trulicity 3 mg/0.5 mL is on back order and [facility] will not be able to get medication in until mid November at the earliest and that is not certain. Patient asking provider what she should do in the meantime. 6 month diabetes f/u is scheduled for 12/04/22 Please review and advise, Nelda Palma RN documented in this encounterChristina Ville [id number] Telephone encounter Note * Telephone Encounter - Annabella Burt - 11/13/2022 11:54 AM EST Name of Caller: Krista Contact Reason for call: [place] Medicaid stated they will no longer cover galcanezumab (Emgality) Pt asking if there is an alternative Rx that she can try. Insurance did not give her any options todiscuss. Office Name: [facility] Jeanna Stanford [id number] Miscellaneous Notes* Telephone Encounter - Annabella Burt - 11/13/2022 11:54 AM EST Name of Caller: Krista Contact Reason for call: [place] Medicaid stated they will no longer cover galcanezumab (Emgality) Pt asking if there is an alternative Rx that she can try. Insurance did not give her any options todiscuss. Office Name: Dr Jeanna Stanford documented in this [facility]11-09-[facility] History of Present illness Narrative* Bill Klukarni Jr., DPM - 08/27/2022 11:57 AM EST Status post left fifth metatarsal fracture ORIF Patient is a pleasant 67-year-old female who is now postop week 8 status post left fifth metatarsalbase fracture by my partner Dr. Lim. He is up today on paternity leave and asked me to see is postop patient. We will return him to her schedule once he is back. Patient states that she is doing excellent she has been very compliantly using her knee scooter andcam boot. States that the tingling burning is improving she is very optimistic get back to normal life. Physical Vascular: DP PT pulses are easily palpable 2/4. CFT is normal minimal edema. Derm: Incision is well coapted. There is no erythema no gapping draining no undermining fluctuance or crepitation. Neuro: Light touch is fair. Musculoskeletal: Minimal guarding. Can easily wiggle toes not in clicking or catching. Ankle subtalar is full and pain-free. X-rays AP oblique lateral: Substantial and appropriate trabeculation of the fifth metatarsal base fracture with intact lateral plate and screws. Well aligned. Assessment and plan: Patient is a pleasant 67-year-old female postop week 8 status post left fifth metatarsal base fracture ORIF by my partner Dr. Lim (who is out on paternity leave this week.) -Reviewed x-rays. Patient is doing excellent postoperatively. Transition off her knee scooter to protected weightbearing with Cam boot. Follow-up in [address] Lim to likely return to tennis shoes and final set of postop x-rays. documented in this [id number] Miscellaneous Notes* Telephone Encounter - Nadia Dumont MD - 07/18/2022 4:49 PM EDT Told patient pathology of colon polyps - hyperplastic. She will require follow up surveillance colonoscopy in 2026 HM was already updated. Patient acknowledges above. documented in this encounterMem[facility]09-29-2022 History of Present illness Narrative* ALBERTO Lim DPM - 07/17/2022 8:45 AM EDT Images from the original note were not included. Established Patient Visit ALBERTO Lim DPM Patient Name: Krista Campbell. . Date of : 1955, 67 y.o.. Gender: female. Subjective: Patient is a pleasant 67-year-old female who presents to clinic today status post left fifth metatarsal ORIF with bilateral steroid injections to the plantar heels. (date of surgery 06/27/2022). Patient relates that she is doing extremely well and has not taken pain medication. Patient's PCP placed her on an iron pill and did not evaluate her for her thrombocytopenia and anemia. She is scheduled tosee him in November.. No fever, chills, nausea, vomiting, chest pain calf pain or shortness of breath. Physical Examination: BP 124/73 (BP Location: Left arm, Patient Position: Sitting, BP Cuff Size: Adult) Pulse 88 Temp98.2 F (36.8 C) (Infrared) General Appearance: Alert, cooperative, no distress, appears stated age. Podiatric Exam Vascular: DP PT pulses are easily palpable. CFT brisk. There is some edema to the left foot. Neurological: Epicritic and protopathic sensation intact to bilateral lower extremities. Dermatologic: Incision noted to the left lateral foot. This is intact with sutures in place. No evidence of dehiscence. Skin edges are viable. No drainage. No erythema. Mild edema consistent with postoperative state. Musculoskeletal: Pain on palpation to left foot periincisional area and plantar foot. Diagnoses: 1. Postoperative state 2. Closed displaced fracture of fifth metatarsal bone of left foot with routine healing, subsequentencounter Imaging: Interval healing x-rays were reviewed of the left foot today 3 views AP MO and lateral. Postsurgical changes noted to the left foot and maintenance of hardware was appreciated. No evidence of plate or screw breaking. Fracture remains well aligned with small lucency still present. Some cortical bridging appreciated at this time. No evidence of soft tissue infection or gas. Assessment/Plan: Patient was seen and evaluated. Discussed all clinical and radiographic findings Dressing was changed today. Educated patient to keep dressing CDI Continue nonweightbearing status to left lower extremity Take Tylenol as needed. Patient is insistent on removing her splint but educated her that there is a long tendon attaching to wear that fracture site is and would really prefer her to keep it immobilized. Therefore we will continue the splint for the next 2 weeks. Follow-up in 2 weeks for suture removal and interval healing x-rays. This note was partially created using voice recognition software and is inherently subject to errors including those of syntax and "sound-alike" substitutions which may escape proofreading. In such instances, original meaning may be extrapolated by contextual derivation. ALBERTO Lim DPM Podiatric Foot & Ankle Surgery documented in this [id number] Nurse Note* Analisa Martin RN - 07/11/2022 8:15 AM EDT Patient arrived laying on left side. Patient's abdomen appears to be nondistended and soft to palpation. Patient denied pain at this time but states she still has a headache from coming in this morning. Rates headache 4/10 on pain scale. Analisa Martin RN documented in this encounterMemorial Hospital09-23-2022 History and physical note * Nadia Dumont MD - 07/11/2022 7:30 AM EDT UPDATED PROCEDURAL SEDATION HISTORY AND PHYSICAL EXAMINATION SERVICE DATE: 07/11/2022 SERVICE TIME: 7:19 PHYSICAL EXAM MUST BE COMPLETED ON ADMISSION PROCEDURE: colonoscopy, possible biopsies Procedure Indications: history of colon polyps The History and Physical (completed in the past 30 days) has been reviewed and the patient has beenexamined. The contents accurately reflect the patient's condition with the following additions or revisions since the H&P was completed. ASA Class: ASA Class:: Patient with mild systemic disease Examination indicates no changes. AIRWAY: Airway Visualization of Uvula: Yes Mouth opening greater than 2 fingerbreadths: Yes Neck Full Range of Motion: Yes LUNGS: Lungs clear to auscultation CARDIAC: Regular rhythm,Regular rate Provisional Diagnosis/Treatment Plan: colonoscopy, possible biopsies SEDATION GOAL: Moderate This H&P can be found in the Electronic Medical Record. SIGNATURE: Nadia Dumont MD PATIENT NAME: Krista Campbell DATE: July 11, 2022 TIME: 7:20 AM Source Note - Nadia Dumont MD - 07/11/2022 7:30 AM EDT HISTORY AND PHYSICAL Krista Campbell 1955 REFERRING PHYSICIAN: Taty Julian MD CHIEF COMPLAINT: Consult (Colonoscopy, and cyst on left hand) HPI: The patient is a 66 year old female referred for endoscopy. Krista notes some constipation which she manages with metamucil and benefiber. Patient denies any recent change in bowel habits, weight changes, blood in stools, black tarry stools or abdominal pain. Denies family history of colon issues. The patient notes no upper GI complaints. Krista has undergone prior endoscopy. Most recent colonoscopy 06/08/[address] Elise with removal ofadenomatous polyp, 5 year repeat recommended. Patient's past medical history is significant for diabetes, gout, macular degeneration, arthritis. Patient follows with Dr. Julian in primary care for her chronic medical conditions. Denies chest pain, shortness of breath or recent hospitalizations. Denies problems with sedation inthe past. Patient also was recently diagnosed with mucus cyst left hand and wanting further evaluation and treatment for this as it seems to be getting larger. PAST MEDICAL HISTORY PAST MEDICAL HISTORY Diagnosis Date Arthritis in Hands Cervical disc disease Diabetes (HCC) Gout Macular degeneration Other forms of migraine Personal history of colonic polyps Snoring does not use C-pap PAST SURGICAL HISTORY PAST SURGICAL HISTORY Procedure Laterality Date DELIVERY ONLY , low cervical COLONOSCOPY FLX DX W/COLLJ SPEC WHEN PFRMD 01/09/2010 Colonoscopy COLONOSCOPY FLX DX W/COLLJ SPEC WHEN PFRMD 01/15/2011 COLONOSCOPY FLX DX W/COLLJ SPEC WHEN PFRMD 03/27/2016 Colonoscopy COLONOSCOPY FLX DX W/COLLJ SPEC WHEN PFRMD 06/08/2017 Colonoscopy DILATION & CURETTAGE DX&/THER NONOBSTETRIC Dilation & curettage ESOPHAGOGASTRODUODENOSCOPY TRANSORAL DIAGNOSTIC 01/2004 EGD ESOPHAGOGASTRODUODENOSCOPY TRANSORAL DIAGNOSTIC 03/29/2018 EGD LIG/TRNSXJ FLP TUBE ABDL/VAG APPR UNI/BI STEREOTACTIC CORE BIOPSY 07/13/2007 LEFT BREAST- benign TONSILLECTOMY PRIMARY/SECONDARY <AGE 12 CURRENT MEDICATIONS Current Outpatient Medications Medication Sig pantoprazole DR (PROTONIX) 40 mg tablet Take 1 tablet by mouth once daily. levothyroxine (SYNTHROID) 75 mcg tablet Take 1 tablet by mouth once daily. fexofenadine (JACQUELINE ALLERGY) 180 mg tablet Take 1 tablet by mouth once daily. glimepiride (AMARYL) 4 mg tablet Take 2 tablets by mouth daily with breakfast. metFORMIN (GLUCOPHAGE) 1,000 mg tablet Take 1 tablet by mouth twice daily with meals. dulaglutide (TRULICITY) 3 mg/0.5 mL pen injector Inject 3 mg subcutaneously one time a week. vitamin C-biotin (HCAC-FZLH-EEERE, VIT C-BIOTIN,) 50 mg -1,250 mcg chew Take 2 tablets by mouth once daily. coenzyme Q10 (CO Q-10) 100 mg cap capsule Take 2 capsules by mouth once daily. EMGALITY PEN 120 mg/mL pen Inject 120 mg subcutaneously once every month. fluorometholone (FML LIQUID FILM) 0.1 % ophthalmic suspension XIIDRA 5 % dpet Use 1 Drop in both eyes twice daily. cranberry fruit extract (CRANBERRY ORAL) Take by mouth. rizatriptan (MAXALT) 10 mg tablet Apple Cider Vinegar 300 mg tab Take 1 tablet by mouth twice daily. MV-MN/FOLIC ACID/CALCIUM/VIT K (ONE-A-DAY WOMEN'S 50 PLUS ORAL) Take by mouth. L.ACID/L.CASEI/B.BIF/B.MINDA/FOS (PROBIOTIC BLEND ORAL) Take by mouth. cycloSPORINE (RESTASIS) 0.05 % ophthalmic emulsion Use 1 Drop in both eyes twice daily. ERYTHROMYCIN BASE (ERYTHROMYCIN OPHTHALMIC) Use in eyes. VIT C/NARCSIA AC/LUT/COPPER/ZNOX (PRESERVISION LUTEIN ORAL) Take 1 tablet by mouth twice daily. No current facility-administered medications for this visit. ALLERGIES: Cipro [Ciprofloxacin], Metronidazole, Penicillins, and Sulfa (Sulfonamide Antibiotics) PERSONAL HISTORY: SOCIAL HISTORY Social History Tobacco Use Smoking status: Former Packs/day: 0.25 Years: 3.00 Pack years: 0.75 Types: Cigarettes Quit date: 06/08/1975 Years since quittin.0 Smokeless tobacco: Never Vaping Use Vaping Use: Never used Substance Use Topics Alcohol use: Yes Comment: rare, once a year Drug use: No FAMILY HISTORY: FAMILY HISTORY FAMILY HISTORY Problem Relation Age of Onset Diabetes Mother Hypertension Mother Hypertension Father Diabetes Father REVIEW OF SYMPTOMS: The review of systems data was entered by the nurse and reviewed by [place] Nursing Notes: Machelle Plascencia LPN 06/17/2022 8:09 AM Signed REVIEW OF SYSTEMS: General: The patient denies fatigue, denies weight loss, denies weight gain, denies feeling hot, and denies feelings of cold. Eyes: The patient denies glaucoma, notes eye injury/surgery, does not wear glasses or contacts. Ear/Nose/Throat: The patient notes allergies, denies hayfever, denies ear infections, and denies bloody noses. Cardiovascular: The patient denies chest pain, denies heart disease, denies high blood pressure,denies cardiac stent, denies prior heart attack, denies irregular heart beat, denies high cholesterol, denies poor circulation, denies heart failure, other cardiac issues, denies claudication, denies cold feet, denies peripheral arterial stent. Respiratory: The patient denies tuberculosis, denies pneumonia, denies frequent cough, denies pulmonary embolism, denies shortness of breath, and denies coughing up blood. Gastrointestinal: The patient denies difficulty swallowing, notes acid reflux, denies ulcers, denies vomiting, denies jaundice/hepatitis, denies gallbladder problems, denies black or tarry stools, denies hemorrhoids, denies bleeding from rectum, notes diverticulitis, notes constipation, denies diarrhea, denies loss of stool control, and denies hernias. Kidney/Bladder: The patient denies kidney stones, denies urine infections, and denies bloody urine. Skin: The patient denies a history of skin cancer, denies bleeding/changing moles, and denies a history of skin rash. Neurologic: The patient denies a history of epilepsy/convulsions, notes headaches, denies head/spinal injuries, and denies stroke/TIA. Psychiatric: The patient denies psychiatric medications, denies depression, and denies voices, denies substance abuse. Endocrine: The patient notes thyroid disorders, notes diabetes, and denies hormonal problems. Hematologic: The patient denies a history of bruising, denies bleeding, and denies anemia, denies blood clots. Infections: The patient denies a history of measles and mumps, denies rheumatic fever, and denies sexually transmitted diseases. Musculoskeletal: The patient denies back pain/injury, notes back problems, denies sciatica, notes knee/foot trouble, notes arthritis, or notes gout. When was patient's last Mammogram screening? 2020 Last Colonoscopy: 2016 Machelle Plascencia LPN I have confirmed and edited as necessary, the PFSH and ROS obtained by others. Nina De La Torre PA-C PHYSICAL EXAMINATION: General: The patient is 66 year old female, well nourished, well hydrated in no acute distress. Thepatient is oriented to time, place, and person. VITALS: Blood pressure 128/64, pulse 110, temperature 36.1 C (97 F), height 149.9 cm (4' 11"), weight 78.5 kg (173 lb), last menstrual period 01/31/2005, SpO2 100 %. Body mass index is 34.94 kg/m . HEENT: Normal cephalic, ataumatic, pupils are equally round, sclera are anicteric, mucous membranesare moist, oropharynx is clear. Neck has no masses, asymmetry or lymphadenopathy. Respiratory: Clear to auscultation and percussion. Normal respiratory excursion and pattern. Cardiac: Examination is regular rate and rhythm. Normal S1/S2 Abdominal exam: Soft, nontender, with no palpable masses. No hepatosplenomegaly. No palpable hernias. Extremities: left hand +4 mm nodule palmar aspect base of 4th and 5th digits, non-tender. no clubbing, cyanosis or edema. No adenopathy. LABORATORY VALUES: As Noted RADIOLOGIC STUDIES: As Noted Assessment IMPRESSION: encounter for high-risk screening colonoscopy due to personal history of colon polyps PLAN: I have reviewed my findings with the surgeon. Will plan for lower endoscopy. We discussed therisks and benefits of the planned endoscopy. I have informed the patient that complications can occur including failure to complete the endoscopy and perforation. The patient had the opportunity to ask questions concerning the planned endoscopy. My staff has also explained the procedure to the patient in understandable terms and has given the patient printed material concerning the procedure. Thepatient freely consents to surgery. The patient was offered a surgery[facility]procedure [facility] facility. I have counseled the patient regarding the risk of exposure to and/or potential harm posed by the COVID-19 virus with having a surgery/procedure at this time versus the risk of delaying the surgery/procedure. It is not possible to know either the risk of delaying the surgery or procedure or chance of getting an infection with perfect accuracy, but a joint decision was made between the patient and myself to proceed at this time with endoscopy. I plan to use Golytely bowel preparation Patient instructed to contact PCP for instructions regarding diabetic medication, which may requireadjustment during bowel preparation and/or day of procedure Assisted patient in scheduling with orthopedic physician for left hand cyst I have explained to the patient the difference between IV conscious sedation and MAC anesthesia - and I have offered either, according to the patient's wishes. I have explained that with IV conscioussedation there is no anesthesia provider available and therefore there is a limitation of the amount of IV medications that can be given and that the patient may wake up in the middle of the procedure and/or experience pain/discomfort during the procedure. Further discussion was done and the patient was given the opportunity to ask questions and all questions were answered. The patient chooses IVconscious sedation- tolerated well previously Diagnoses: (Z12.11) Screening for colon cancer Consultation requested by Dr. Julian for an opinion regarding screening colonoscopy. My final recommendations will be communicated back to the requesting physician by way of shared Medical recordor letter to requesting physician via US mail. Nina De La Torre PA-C * Nadia Dumont MD - 07/11/2022 7:30 AM EDT HISTORY AND PHYSICAL Krista Campbell 1955 REFERRING PHYSICIAN: Taty Julian MD CHIEF COMPLAINT: Consult (Colonoscopy, and cyst on left hand) HPI: The patient is a 66 year old female referred for endoscopy. Krista notes some constipation which she manages with metamucil and benefiber. Patient denies any recent change in bowel habits, weight changes, blood in stools, black tarry stools or abdominal pain. Denies family history of colon issues. The patient notes no upper GI complaints. Krista has undergone prior endoscopy. Most recent colonoscopy 06/08/[address] Elise with removal ofadenomatous polyp, 5 year repeat recommended. Patient's past medical history is significant for diabetes, gout, macular degeneration, arthritis. Patient follows with Dr. Julian in primary care for her chronic medical conditions. Denies chest pain, shortness of breath or recent hospitalizations. Denies problems with sedation inthe past. Patient also was recently diagnosed with mucus cyst left hand and wanting further evaluation and treatment for this as it seems to be getting larger. PAST MEDICAL HISTORY PAST MEDICAL HISTORY Diagnosis Date Arthritis in Hands Cervical disc disease Diabetes (HCC) Gout Macular degeneration Other forms of migraine Personal history of colonic polyps Snoring does not use C-pap PAST SURGICAL HISTORY PAST SURGICAL HISTORY Procedure Laterality Date DELIVERY ONLY , low cervical COLONOSCOPY FLX DX W/COLLJ SPEC WHEN PFRMD 01/09/2010 Colonoscopy COLONOSCOPY FLX DX W/COLLJ SPEC WHEN PFRMD 01/15/2011 COLONOSCOPY FLX DX W/COLLJ SPEC WHEN PFRMD 03/27/2016 Colonoscopy COLONOSCOPY FLX DX W/COLLJ SPEC WHEN PFRMD 06/08/2017 Colonoscopy DILATION & CURETTAGE DX&/THER NONOBSTETRIC Dilation & curettage ESOPHAGOGASTRODUODENOSCOPY TRANSORAL DIAGNOSTIC 01/2004 EGD ESOPHAGOGASTRODUODENOSCOPY TRANSORAL DIAGNOSTIC 03/29/2018 EGD LIG/TRNSXJ FLP TUBE ABDL/VAG APPR UNI/BI STEREOTACTIC CORE BIOPSY 07/13/2007 LEFT BREAST- benign TONSILLECTOMY PRIMARY/SECONDARY <AGE 12 CURRENT MEDICATIONS Current Outpatient Medications Medication Sig pantoprazole DR (PROTONIX) 40 mg tablet Take 1 tablet by mouth once daily. levothyroxine (SYNTHROID) 75 mcg tablet Take 1 tablet by mouth once daily. fexofenadine (JACQUELINE ALLERGY) 180 mg tablet Take 1 tablet by mouth once daily. glimepiride (AMARYL) 4 mg tablet Take 2 tablets by mouth daily with breakfast. metFORMIN (GLUCOPHAGE) 1,000 mg tablet Take 1 tablet by mouth twice daily with meals. dulaglutide (TRULICITY) 3 mg/0.5 mL pen injector Inject 3 mg subcutaneously one time a week. vitamin C-biotin (QBYW-KVMX-KWTIL, VIT C-BIOTIN,) 50 mg -1,250 mcg chew Take 2 tablets by mouth once daily. coenzyme Q10 (CO Q-10) 100 mg cap capsule Take 2 capsules by mouth once daily. EMGALITY PEN 120 mg/mL pen Inject 120 mg subcutaneously once every month. fluorometholone (FML LIQUID FILM) 0.1 % ophthalmic suspension XIIDRA 5 % dpet Use 1 Drop in both eyes twice daily. cranberry fruit extract (CRANBERRY ORAL) Take by mouth. rizatriptan (MAXALT) 10 mg tablet Apple Cider Vinegar 300 mg tab Take 1 tablet by mouth twice daily. MV-MN/FOLIC ACID/CALCIUM/VIT K (ONE-A-DAY WOMEN'S 50 PLUS ORAL) Take by mouth. L.ACID/L.CASEI/B.BIF/B.MINDA/FOS (PROBIOTIC BLEND ORAL) Take by mouth. cycloSPORINE (RESTASIS) 0.05 % ophthalmic emulsion Use 1 Drop in both eyes twice daily. ERYTHROMYCIN BASE (ERYTHROMYCIN OPHTHALMIC) Use in eyes. VIT C/NARCISA AC/LUT/COPPER/ZNOX (PRESERVISION LUTEIN ORAL) Take 1 tablet by mouth twice daily. No current facility-administered medications for this visit. ALLERGIES: Cipro [Ciprofloxacin], Metronidazole, Penicillins, and Sulfa (Sulfonamide Antibiotics) PERSONAL HISTORY: SOCIAL HISTORY Social History Tobacco Use Smoking status: Former Packs/day: 0.25 Years: 3.00 Pack years: 0.75 Types: Cigarettes Quit date: 06/08/1975 Years since quittin.0 Smokeless tobacco: Never Vaping Use Vaping Use: Never used Substance Use Topics Alcohol use: Yes Comment: rare, once a year Drug use: No FAMILY HISTORY: FAMILY HISTORY FAMILY HISTORY Problem Relation Age of Onset Diabetes Mother Hypertension Mother Hypertension Father Diabetes Father REVIEW OF SYMPTOMS: The review of systems data was entered by the nurse and reviewed by [place] Nursing Notes: Machelle Plascencia LPN 06/17/2022 8:09 AM Signed REVIEW OF SYSTEMS: General: The patient denies fatigue, denies weight loss, denies weight gain, denies feeling hot, and denies feelings of cold. Eyes: The patient denies glaucoma, notes eye injury/surgery, does not wear glasses or contacts. Ear/Nose/Throat: The patient notes allergies, denies hayfever, denies ear infections, and denies bloody noses. Cardiovascular: The patient denies chest pain, denies heart disease, denies high blood pressure,denies cardiac stent, denies prior heart attack, denies irregular heart beat, denies high cholesterol, denies poor circulation, denies heart failure, other cardiac issues, denies claudication, denies cold feet, denies peripheral arterial stent. Respiratory: The patient denies tuberculosis, denies pneumonia, denies frequent cough, denies pulmonary embolism, denies shortness of breath, and denies coughing up blood. Gastrointestinal: The patient denies difficulty swallowing, notes acid reflux, denies ulcers, denies vomiting, denies jaundice/hepatitis, denies gallbladder problems, denies black or tarry stools, denies hemorrhoids, denies bleeding from rectum, notes diverticulitis, notes constipation, denies diarrhea, denies loss of stool control, and denies hernias. Kidney/Bladder: The patient denies kidney stones, denies urine infections, and denies bloody urine. Skin: The patient denies a history of skin cancer, denies bleeding/changing moles, and denies a history of skin rash. Neurologic: The patient denies a history of epilepsy/convulsions, notes headaches, denies head/spinal injuries, and denies stroke/TIA. Psychiatric: The patient denies psychiatric medications, denies depression, and denies voices, denies substance abuse. Endocrine: The patient notes thyroid disorders, notes diabetes, and denies hormonal problems. Hematologic: The patient denies a history of bruising, denies bleeding, and denies anemia, denies blood clots. Infections: The patient denies a history of measles and mumps, denies rheumatic fever, and denies sexually transmitted diseases. Musculoskeletal: The patient denies back pain/injury, notes back problems, denies sciatica, notes knee/foot trouble, notes arthritis, or notes gout. When was patient's last Mammogram screening? 2020 Last Colonoscopy: 2016 Machelle Plascencia LPN I have confirmed and edited as necessary, the PFSH and ROS obtained by others. Nina De La Torre PA-C PHYSICAL EXAMINATION: General: The patient is 66 year old female, well nourished, well hydrated in no acute distress. Thepatient is oriented to time, place, and person. VITALS: Blood pressure 128/64, pulse 110, temperature 36.1 C (97 F), height 149.9 cm (4' 11"), weight 78.5 kg (173 lb), last menstrual period 01/31/2005, SpO2 100 %. Body mass index is 34.94 kg/m . HEENT: Normal cephalic, ataumatic, pupils are equally round, sclera are anicteric, mucous membranesare moist, oropharynx is clear. Neck has no masses, asymmetry or lymphadenopathy. Respiratory: Clear to auscultation and percussion. Normal respiratory excursion and pattern. Cardiac: Examination is regular rate and rhythm. Normal S1/S2 Abdominal exam: Soft, nontender, with no palpable masses. No hepatosplenomegaly. No palpable hernias. Extremities: left hand +4 mm nodule palmar aspect base of 4th and 5th digits, non-tender. no clubbing, cyanosis or edema. No adenopathy. LABORATORY VALUES: As Noted RADIOLOGIC STUDIES: As Noted Assessment IMPRESSION: encounter for high-risk screening colonoscopy due to personal history of colon polyps PLAN: I have reviewed my findings with the surgeon. Will plan for lower endoscopy. We discussed therisks and benefits of the planned endoscopy. I have informed the patient that complications can occur including failure to complete the endoscopy and perforation. The patient had the opportunity to ask questions concerning the planned endoscopy. My staff has also explained the procedure to the patient in understandable terms and has given the patient printed material concerning the procedure. Thepatient freely consents to surgery. The patient was offered a surgery/procedure at a [facility] facility. I have counseled the patient regarding the risk of exposure to and/or potential harm posed by the COVID-19 virus with having a surgery/procedure at this time versus the risk of delaying the surgery/procedure. It is not possible to know either the risk of delaying the surgery or procedure or chance of getting an infection with perfect accuracy, but a joint decision was made between the patient and myself to proceed at this time with endoscopy. I plan to use Golytely bowel preparation Patient instructed to contact PCP for instructions regarding diabetic medication, which may requireadjustment during bowel preparation and/or day of procedure Assisted patient in scheduling with orthopedic physician for left hand cyst I have explained to the patient the difference between IV conscious sedation and MAC anesthesia - and I have offered either, according to the patient's wishes. I have explained that with IV conscioussedation there is no anesthesia provider available and therefore there is a limitation of the amount of IV medications that can be given and that the patient may wake up in the middle of the procedure and/or experience pain/discomfort during the procedure. Further discussion was done and the patient was given the opportunity to ask questions and all questions were answered. The patient chooses IVconscious sedation- tolerated well previously Diagnoses: (Z12.11) Screening for colon cancer Consultation requested by Dr. Julian for an opinion regarding screening colonoscopy. My final recommendations will be communicated back to the requesting physician by way of shared Medical recordor letter to requesting physician via US mail. Nina De La Torre PA-C documented in this encounter[facility]22 Miscellaneous Notes* Telephone Encounter - Hillary Shah - 07/08/2022 3:29 PM EDT Patient called back to inform her orthopedic surgeon is okay with her proceeding with end[facility] Dumont [facility] the [facility] * Telephone Encounter - Hillary Shah - 07/07/2022 1:51 PM EDT PATIENT NOTIFIED TO Have her hold her diabetic medications until after the procedure. Patient checking with Ortho Surgeon if applicable to proceed with endoscopy * Telephone Encounter - Hillary Shah - 07/07/2022 10:59 AM EDT Patient called in stating she had left foot surgery on 06/27. Patient stated she has screws and plates put in and is all splint up. Patient stated is NOT on any meds from this surgery and is wondering if she is still able to proceed with her colonoscopy on 07/[address] Dumont. Also patient was wanting to know if there are any meds she should NOT be taking prior to procedure. Please advise so I may accurately proceed with this patient Thank you Suzanne * Telephone Encounter - Mallika Mcclendon - 06/17/2022 10:32 AM EDT 07/11 [facility] documented in this encounterMem[facility]22 Miscellaneous Notes* Telephone Encounter - Isrrael Bruner APRN.CNP - 07/08/2022 1:13 PM EDT Order filed. Isrrael Bruner APRN.CNP * Telephone Encounter - Vivien Sharma Ma - 07/08/2022 12:36 PM EDT Pt at lab, needs to have CBC with Diff checked. She was in last week and told to come back in a week and recheck. Vivien Sharma Ma documented in this encounterMem[facility] Hospital09-15-2022 History of Present illness Narrative* ALBERTO Lim DPM - 2022 10:01 AM EDT Images from the original note were not included. Established Patient Visit ALBERTO Lim DPM Patient Name: Krista Campbell. . Date of : 1955, 67 y.o.. Gender: female. Subjective: Patient is a pleasant 67-year-old female who presents to clinic today status post left fifth metatarsal ORIF with bilateral steroid injections to the plantar heels. (date of surgery 06/27/2022). Patient relates that she is doing extremely well and has not taken pain medication in 2 days. She has a follow-up appointment with her PCP for her anemia and thrombocytopenia. No fever, chills, nausea, vomiting, chest pain calf pain or shortness of breath. Physical Examination: BP 111/73 (BP Location: Right arm, Patient Position: Sitting, BP Cuff Size: Adult) Pulse 86 Temp 98.5 F (36.9 C) (Infrared) General Appearance: Alert, cooperative, no distress, appears stated age. Podiatric Exam Vascular: DP PT pulses are easily palpable. CFT brisk. There is some edema to the left foot. Neurological: Epicritic and protopathic sensation intact to bilateral lower extremities. Dermatologic: Incision noted to the left lateral foot. This is intact with sutures in place. No evidence of dehiscence. Skin edges are viable. No drainage. No erythema. Mild edema consistent with postoperative state. Musculoskeletal: Pain on palpation to left foot periincisional area and plantar foot. Diagnoses: 1. Closed displaced fracture of fifth metatarsal bone of left foot, initial encounter XR Foot Left 3+ Views (Standard) Imaging: Interval healing x-rays were reviewed of the left foot today 3 views AP MO and lateral. Postsurgical changes noted to the left foot and maintenance of hardware was appreciated. No evidence of plate or screw breaking. Fracture remains well aligned with small lucency still present. Some cortical bridging appreciated at this time. No evidence of soft tissue infection or gas. Assessment/Plan: Patient was seen and evaluated. Discussed all clinical and radiographic findings Dressing was changed today. Educated patient to keep dressing CDI Continue nonweightbearing status to left lower extremity Take Tylenol as needed. Patient is insistent on removing her splint but educated her that there is a long tendon attaching to wear that fracture site is and would really prefer her to keep it immobilized. Therefore we will continue the splint for the next 2 weeks. Follow-up in 2 weeks for suture removal and interval healing x-rays. This note was partially created using voice recognition software and is inherently subject to errors including those of syntax and "sound-alike" substitutions which may escape proofreading. In such instances, original meaning may be extrapolated by contextual derivation. ALBERTO Lim DPM Podiatric Foot & Ankle Surgery documented in this [id number] Instructions* Patient Instructions* ALBERTO Lim DPM - 2022 10:01 AM EDT Follow-up in 2 weeks. Keep dressing clean dry and intact. Continue nonweightbearing. documented in this [id number] Miscellaneous Notes* Telephone Encounter - Noris Bonilla LPN - 07/02/2022 8:24 AM EDT Pt. informed she is not having any symptoms will repeat in 1 week. Noris Bonilla LPN * Telephone Encounter - Imer Matos DO - 07/02/2022 7:40 AM EDT [facility] lab was ordered due to PCP out of office, I have never seen patient for evaluation. Her hemoglobin is low at 8.2. is she symptomatic with shortness of breath, palpitations, chest pressure/pain? If so, needs to go to EMERGENCY DEPARTMENT for evaluation. Her platelets are still mildly low at 107,000 If not, need for repeat hemoglobin in 1 week with PCP team Imer Matos DO [facility] History of Present illness Narrative* ALBERTO Lim DPM - 06/24/2022 10:44 AM EDT NEW Patient Visit/ History and physical exam ALBERTO Lim DPM Patient Name: Krista Campbell. . Date of : 1955, 66 y.o.. Gender: female. Subjective: Patient is a pleasant 66-year-old female who is referred to me by my partner, Dr. Kulkarni, she has sustained a left fifth metatarsal avulsion fracture. She is scheduled for her preoperative testing and evaluation this week. She is here to discuss surgery and have any questions answered that she may have. She does relate that she is diabetic but is well controlled. She denies any current fever, chills, nausea, vomiting or shortness of breath. Patient has no other pedal complaints at this time. She has acquired a knee scooter and is currently wearing her boot. 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 Diabetes (HCC) Ear problem Eye problem Headache Left foot pain Metatarsal fracture Plantar fasciitis, left Right foot pain Swelling Thyroid condition Past Surgical History: Procedure Laterality Date CATARACT EXTRACTION, BILATERAL lens implants OTHER SURGICAL HISTORY tubes TONSILLECTOMY Social History Socioeconomic History Marital status: Tobacco Use Smoking status: Former Smokeless tobacco: Never Vaping Use Vaping Use: Never used Substance and Sexual Activity Alcohol use: Not Currently Drug use: Never Physical Examination: BP 117/68 (BP Location: Left arm, Patient Position: Sitting, BP Cuff Size: Adult) Pulse 80 Temp98.4 F (36.9 C) (Infrared) General Appearance: Alert, cooperative, no distress, appears stated age. Podiatric Exam Vascular: DP PT pulses are easily palpable 2-4. CFT is fair. No edema to the right lower extremity.Some edema present to the left foot. Derm: No open wounds no ulcers no rashes no deep nodules. Ecchymosis present to the left lateral midfoot over the fifth metatarsal base. Neuro: Light touch is fair Babinski's is fair. Musculoskeletal: Still with pain to the right plantar fascial origin worse than the left. Still with a palpable plantar fascial fibroma pleasant centrally bilateral.. Pain on palpation to fifth metatarsal base. No obvious gross deformity present. Diagnoses: 1. Closed displaced fracture of fifth metatarsal bone of left foot, initial encounter oxyCODONE-acetaminophen (PERCOCET) 5-325 mg per tablet apixaban (ELIQUIS) 5 mg Tab 2. Left foot pain oxyCODONE-acetaminophen (PERCOCET) 5-325 mg per tablet apixaban (ELIQUIS) 5 mg Tab Imaging: Previous imaging was reviewed with the patient. Impression: Minimally displaced closed fifth metatarsal base fracture. Assessment/Plan: Patient was seen and evaluated. Discussed all clinical findings. Educated patient on surgical treatment including risks and benefits. These include but are not limited to infection, DVT, PE, loss of limb, loss of life. Patient understands and accepts these risk. Consent was signed. Rx for Percocet 5-3 25 for 7 days. Eliquis for 30 days. Patient is to start taking blood thinner day after surgery. All questions were answered to patient's understanding. Patient will follow up 1 week postoperatively. This note was partially created using voice recognition software and is inherently subject to errors including those of syntax and "sound-alike" substitutions which may escape proofreading. In such instances, original meaning may be extrapolated by contextual derivation. ALBERTO Lim DPM Podiatric Foot & Ankle Surgery documented in this [id number] Note* Addendum Note - Bill Kulkarni Jr., DPM - 06/20/2022 3:19 PM EDTAddended by: BILL KULKARNI on: 06/20/2022 03:19 PM Modules accepted: Orders [id number] Note* Addendum Note - Bill Kulkarni Jr., DPM - 06/20/2022 3:19 PM EDTAddended by: BILL KULKARNI on: 06/20/2022 03:19 PM Modules accepted: Orders [id number] Miscellaneous Notes* Addendum Note - Bill Kulkarni Jr., DPM - 06/20/2022 3:19 PM EDTAddended by: BILL KULKARNI on: 06/20/2022 03:19 PM Modules accepted: Orders documented in this [id number] History of Present illness Narrative* Bill Kulkarni Jr., DPM - 06/20/2022 2:12 PM EDT Patient is a pleasant 66-year-old female presenting to clinic today earlier than her scheduled follow-up due to recent trauma. Patient relates that she was at her granddaughter's track meet and therewas an area of asphalt that had a ledge and she rolled her ankle felt a burning pain in her foot and sustained an abrasion on her elbow and knee. Patient is able to ambulate but has pain. Pain is isolated to the side of her left foot. She denies any current fever, chills, nausea vomiting, chest pain or shortness of breath. Patient is controlling her blood sugars and has recent A1c of 7.6. Patientdoes not smoke. Physical Vascular: DP PT pulses are easily palpable 2-4. CFT is fair. No edema to the right lower extremity.Some edema present to the left foot. Derm: No open wounds no ulcers no rashes no deep nodules. Ecchymosis present to the left lateral midfoot over the fifth metatarsal base. Neuro: Light touch is fair Babinski's is fair. Musculoskeletal: Still with pain to the right plantar fascial origin worse than the left. Still with a palpable plantar fascial fibroma pleasant centrally bilateral.. Pain on palpation to fifth metatarsal base. No obvious gross deformity present. Imagin views of the left foot were reviewed today with the patient. There is a minimally displaced fifthmetatarsal base avulsion fracture. No other fractures or dislocations of note. Assessment and plan: Patient is a pleasant 66-year-old female who has sustained a left fifth metatarsal avulsion fracture. 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 Updated A1c has come down to 7.6%. -Discussed conservative versus surgical treatments today. I will be referring this patient to my partner, Dr. Lim, for further work-up and treatment. We will order PAT's in the form of CBC, Chem-7, EKG. -Patient to follow-up with Dr. Vargas on Thursday for history and physical and answer any questionsabout surgery. Surgery will be scheduled for 06/27/2022. -Procedure will be in the form of ORIF of left fifth metatarsal fracture. Patient expressed interest in having her plantar fibromas removed at the same time. We will hold off at this time and do steroid injections bilaterally under anesthesia. Her nonweightbearing status will allow for her left foot to potentially heal. If she continues to do worse we will order an MRI and then likely be referredback to myself for definitive treatment. - Boot was dispensed today. Patient may weight-bear as tolerated. Patient was ambulatory prior to this incident and is expected to regain ambulatory status after complete healing of injury. - Educated patient on need for nonweightbearing status, patient is to acquire a knee scooter. Moderate medical complexity decision making based on chronicity of diabetes elevating her risk. documented in this [id number] History of Present illness Narrative* Bill Kulkarni Jr., DPM - 06/18/2022 8:28 AM EDT Patient is a pleasant 66-year-old female following up today for bilateral foot and ankle pain. States that her right foot is still quite sore painful and uncomfortable directly in her arch. Physical Vascular: DP PT pulses are easily palpable 2-4. CFT is fair no edema. Derm: No open wounds no ulcers no rashes no deep nodules. Neuro: Light touch is fair Babinski's is fair. Musculoskeletal: Still with pain to the right plantar fascial origin worse than the left. Still with a palpable plantar fascial fibroma pleasant centrally. Assessment and plan: Patient is a pleasant 66-year-old female with bilateral plantar fascial fibromatosis right much worse than left. Updated A1c has come down to 7.6%. -Today did go over options including excision versus continued conservative therapy. Would like herto give this a month to think about for a right foot plantar fascial fibroma resection. Follow-up in 1 month with decision. Low medical complexity decision making based on chronicity of diabetes elevating her risk. documented in this [id number] History of Present illness Narrative* Nina De La Torre PA-C - 06/17/2022 8:16 AM EDT HISTORY AND PHYSICAL Krista Campbell 1955 REFERRING PHYSICIAN: Taty Julian MD CHIEF COMPLAINT: Consult (Colonoscopy, and cyst on left hand) HPI: The patient is a 66 year old female referred for endoscopy. Krista notes some constipation which she manages with metamucil and benefiber. Patient denies any recent change in bowel habits, weight changes, blood in stools, black tarry stools or abdominal pain. Denies family history of colon issues. The patient notes no upper GI complaints. Krista has undergone prior endoscopy. Most recent colonoscopy 06/08/[address] Elise with removal ofadenomatous polyp, 5 year repeat recommended. Patient's past medical history is significant for diabetes, gout, macular degeneration, arthritis. Patient follows with Dr. Julian in primary care for her chronic medical conditions. Denies chest pain, shortness of breath or recent hospitalizations. Denies problems with sedation inthe past. Patient also was recently diagnosed with mucus cyst left hand and wanting further evaluation and treatment for this as it seems to be getting larger. PAST MEDICAL HISTORY Diagnosis Date Arthritis in Hands Cervical disc disease Diabetes (HCC) Gout Macular degeneration Other forms of migraine Personal history of colonic polyps Snoring does not use C-pap PAST SURGICAL HISTORY Procedure Laterality Date DELIVERY ONLY , low cervical COLONOSCOPY FLX DX W/COLLJ SPEC WHEN PFRMD 01/09/2010 Colonoscopy COLONOSCOPY FLX DX W/COLLJ SPEC WHEN PFRMD 01/15/2011 COLONOSCOPY FLX DX W/COLLJ SPEC WHEN PFRMD 03/27/2016 Colonoscopy COLONOSCOPY FLX DX W/COLLJ SPEC WHEN PFRMD 06/08/2017 Colonoscopy DILATION & CURETTAGE DX&/THER NONOBSTETRIC Dilation & curettage ESOPHAGOGASTRODUODENOSCOPY TRANSORAL DIAGNOSTIC 01/2004 EGD ESOPHAGOGASTRODUODENOSCOPY TRANSORAL DIAGNOSTIC 03/29/2018 EGD LIG/TRNSXJ FLP TUBE ABDL/VAG APPR UNI/BI STEREOTACTIC CORE BIOPSY 07/13/2007 LEFT BREAST- benign TONSILLECTOMY PRIMARY/SECONDARY <AGE 12 Current Outpatient Medications Medication Sig pantoprazole DR (PROTONIX) 40 mg tablet Take 1 tablet by mouth once daily. levothyroxine (SYNTHROID) 75 mcg tablet Take 1 tablet by mouth once daily. fexofenadine (JACQUELINE ALLERGY) 180 mg tablet Take 1 tablet by mouth once daily. glimepiride (AMARYL) 4 mg tablet Take 2 tablets by mouth daily with breakfast. metFORMIN (GLUCOPHAGE) 1,000 mg tablet Take 1 tablet by mouth twice daily with meals. dulaglutide (TRULICITY) 3 mg/0.5 mL pen injector Inject 3 mg subcutaneously one time a week. vitamin C-biotin (XIAZ-YMLW-UQICR, VIT C-BIOTIN,) 50 mg -1,250 mcg chew Take 2 tablets by mouth once daily. coenzyme Q10 (CO Q-10) 100 mg cap capsule Take 2 capsules by mouth once daily. EMGALITY PEN 120 mg/mL pen Inject 120 mg subcutaneously once every month. fluorometholone (FML LIQUID FILM) 0.1 % ophthalmic suspension XIIDRA 5 % dpet Use 1 Drop in both eyes twice daily. cranberry fruit extract (CRANBERRY ORAL) Take by mouth. rizatriptan (MAXALT) 10 mg tablet Apple Cider Vinegar 300 mg tab Take 1 tablet by mouth twice daily. MV-MN/FOLIC ACID/CALCIUM/VIT K (ONE-A-DAY WOMEN'S 50 PLUS ORAL) Take by mouth. L.ACID/L.CASEI/B.BIF/B.MINDA/FOS (PROBIOTIC BLEND ORAL) Take by mouth. cycloSPORINE (RESTASIS) 0.05 % ophthalmic emulsion Use 1 Drop in both eyes twice daily. ERYTHROMYCIN BASE (ERYTHROMYCIN OPHTHALMIC) Use in eyes. VIT C/NARCISA AC/LUT/COPPER/ZNOX (PRESERVISION LUTEIN ORAL) Take 1 tablet by mouth twice daily. No current facility-administered medications for this visit. ALLERGIES: Cipro [Ciprofloxacin], Metronidazole, Penicillins, and Sulfa (Sulfonamide Antibiotics) PERSONAL HISTORY: Social History Tobacco Use Smoking status: Former Packs/day: 0.25 Years: 3.00 Pack years: 0.75 Types: Cigarettes Quit date: 06/08/1975 Years since quittin.0 Smokeless tobacco: Never Vaping Use Vaping Use: Never used Substance Use Topics Alcohol use: Yes Comment: rare, once a year Drug use: No FAMILY HISTORY: FAMILY HISTORY Problem Relation Age of Onset Diabetes Mother Hypertension Mother Hypertension Father Diabetes Father REVIEW OF SYMPTOMS: The review of systems data was entered by the nurse and reviewed by ky Nursing Notes: Machelle NILSA Plascencia 06/17/2022 8:09 AM Signed REVIEW OF SYSTEMS: General: The patient denies fatigue, denies weight loss, denies weight gain, denies feeling hot, and denies feelings of cold. Eyes: The patient denies glaucoma, notes eye injury/surgery, does not wear glasses or contacts. Ear/Nose/Throat: The patient notes allergies, denies hayfever, denies ear infections, and denies bloody noses. Cardiovascular: The patient denies chest pain, denies heart disease, denies high blood pressure,denies cardiac stent, denies prior heart attack, denies irregular heart beat, denies high cholesterol, denies poor circulation, denies heart failure, other cardiac issues, denies claudication, denies cold feet, denies peripheral arterial stent. Respiratory: The patient denies tuberculosis, denies pneumonia, denies frequent cough, denies pulmonary embolism, denies shortness of breath, and denies coughing up blood. Gastrointestinal: The patient denies difficulty swallowing, notes acid reflux, denies ulcers, denies vomiting, denies jaundice/hepatitis, denies gallbladder problems, denies black or tarry stools, denies hemorrhoids, denies bleeding from rectum, notes diverticulitis, notes constipation, denies diarrhea, denies loss of stool control, and denies hernias. Kidney/Bladder: The patient denies kidney stones, denies urine infections, and denies bloody urine. Skin: The patient denies a history of skin cancer, denies bleeding/changing moles, and denies a history of skin rash. Neurologic: The patient denies a history of epilepsy/convulsions, notes headaches, denies head/spinal injuries, and denies stroke/TIA. Psychiatric: The patient denies psychiatric medications, denies depression, and denies voices, denies substance abuse. Endocrine: The patient notes thyroid disorders, notes diabetes, and denies hormonal problems. Hematologic: The patient denies a history of bruising, denies bleeding, and denies anemia, denies blood clots. Infections: The patient denies a history of measles and mumps, denies rheumatic fever, and denies sexually transmitted diseases. Musculoskeletal: The patient denies back pain/injury, notes back problems, denies sciatica, notes knee/foot trouble, notes arthritis, or notes gout. When was patient's last Mammogram screening? 2020 Last Colonoscopy: 2016 Machelle Plascencia LPN I have confirmed and edited as necessary, the PFSH and ROS obtained by others. Nina De La Torre PA-C PHYSICAL EXAMINATION: General: The patient is 66 year old female, well nourished, well hydrated in no acute distress. Thepatient is oriented to time, place, and person. VITALS: Blood pressure 128/64, pulse 110, temperature 36.1 C (97 F), height 149.9 cm (4' 11"), weight 78.5 kg (173 lb), last menstrual period 01/31/2005, SpO2 100 %. Body mass index is 34.94 kg/m . HEENT: Normal cephalic, ataumatic, pupils are equally round, sclera are anicteric, mucous membranesare moist, oropharynx is clear. Neck has no masses, asymmetry or lymphadenopathy. Respiratory: Clear to auscultation and percussion. Normal respiratory excursion and pattern. Cardiac: Examination is regular rate and rhythm. Normal S1/S2 Abdominal exam: Soft, nontender, with no palpable masses. No hepatosplenomegaly. No palpable hernias. Extremities: left hand +4 mm nodule palmar aspect base of 4th and 5th digits, non-tender. no clubbing, cyanosis or edema. No adenopathy. LABORATORY VALUES: As Noted RADIOLOGIC STUDIES: As Noted Assessment IMPRESSION: encounter for high-risk screening colonoscopy due to personal history of colon polyps PLAN: I have reviewed my findings with the surgeon. Will plan for lower endoscopy. We discussed therisks and benefits of the planned endoscopy. I have informed the patient that complications can occur including failure to complete the endoscopy and perforation. The patient had the opportunity to ask questions concerning the planned endoscopy. My staff has also explained the procedure to the patient in understandable terms and has given the patient printed material concerning the procedure. Thepatient freely consents to surgery. The patient [facility] I have counseled the patient regarding the risk of exposure to and/or potential harm posed by the COVID-19 virus with having a surgery/procedure at this time versus the risk of delaying the surgery/procedure. It is not possible to know either the risk of delaying the surgery or procedure or chance of getting an infection with perfect accuracy, but a joint decision was made between the patient and myself to proceed at this time with endoscopy. I plan to use Golytely bowel preparation Patient instructed to contact PCP for instructions regarding diabetic medication, which may requireadjustment during bowel preparation and/or day of procedure Assisted patient in scheduling with orthopedic physician for left hand cyst I have explained to the patient the difference between IV conscious sedation and MAC anesthesia - and I have offered either, according to the patient's wishes. I have explained that with IV conscioussedation there is no anesthesia provider available and therefore there is a limitation of the amount of IV medications that can be given and that the patient may wake up in the middle of the procedure and/or experience pain/discomfort during the procedure. Further discussion was done and the patient was given the opportunity to ask questions and all questions were answered. The patient chooses IVconscious sedation- tolerated well previously Diagnoses: (Z12.11) Screening for colon cancer Consultation requested by Dr. Julian for an opinion regarding screening colonoscopy. My final recommendations will be communicated back to the requesting physician by way of shared Medical recordor letter to requesting physician via US mail. Nina De La Torre PA-C [facility] Nurse Note* Machelle Plascencia, FRONT DESK TEAM MEMBER - 06/17/2022 8:07 AM EDT REVIEW OF SYSTEMS: General: The patient denies fatigue, denies weight loss, denies weight gain, denies feeling hot, and denies feelings of cold. Eyes: The patient denies glaucoma, notes eye injury/surgery, does not wear glasses or contacts. Ear/Nose/Throat: The patient notes allergies, denies hayfever, denies ear infections, and denies bloody noses. Cardiovascular: The patient denies chest pain, denies heart disease, denies high blood pressure,denies cardiac stent, denies prior heart attack, denies irregular heart beat, denies high cholesterol, denies poor circulation, denies heart failure, other cardiac issues, denies claudication, denies cold feet, denies peripheral arterial stent. Respiratory: The patient denies tuberculosis, denies pneumonia, denies frequent cough, denies pulmonary embolism, denies shortness of breath, and denies coughing up blood. Gastrointestinal: The patient denies difficulty swallowing, notes acid reflux, denies ulcers, denies vomiting, denies jaundice/hepatitis, denies gallbladder problems, denies black or tarry stools, denies hemorrhoids, denies bleeding from rectum, notes diverticulitis, notes constipation, denies diarrhea, denies loss of stool control, and denies hernias. Kidney/Bladder: The patient denies kidney stones, denies urine infections, and denies bloody urine. Skin: The patient denies a history of skin cancer, denies bleeding/changing moles, and denies a history of skin rash. Neurologic: The patient denies a history of epilepsy/convulsions, notes headaches, denies head/spinal injuries, and denies stroke/TIA. Psychiatric: The patient denies psychiatric medications, denies depression, and denies voices, denies substance abuse. Endocrine: The patient notes thyroid disorders, notes diabetes, and denies hormonal problems. Hematologic: The patient denies a history of bruising, denies bleeding, and denies anemia, denies blood clots. Infections: The patient denies a history of measles and mumps, denies rheumatic fever, and denies sexually transmitted diseases. Musculoskeletal: The patient denies back pain/injury, notes back problems, denies sciatica, notes knee/foot trouble, notes arthritis, or notes gout. When was patient's last Mammogram screening? 2020 Last Colonoscopy: 2016 Machelle Plascencia LPN [facility] this [facility] History of Present illness Narrative* Taty Julian MD - 06/02/2022 8:00 AM EDT Chief Complaint Patient presents with: F/U 3 Month HPI Krista Campbell is a 66 year old female who presents here today for a 3 month follow up. Pt here today for her routine 3 month follow up. Labs ordered not yet completed. GERD/Pain - Epigastric pain and GERD symptoms, currently prescribedProtonix 40 mg once daily. Seemsto be having a little more heartburn. DM - Checks sugars once daily with FBS ranging from 109-180. Denies any low blood sugars or neuropathy symptoms. Follows with Podiatry Dr. Kulkarni for routine foot care and other foot issues. On current regimen of Metformin 1,000 mg 1 tab po bid, Amaryl 4 mg 2 tabs po once daily and Trulicity 3.0 mgonce weekly. Trying to watch diet eating more vegetables, reducing sugar intake and portion sizes. Lipids - On no current statin medication, trying to control with lifestyle. Gout - Follows with Podiatry and overall controlled on Allopurinol 100 mg bid. Migraines - Follows with Neuro, Dr. Thapa, doing well with Emgality monthly injections and prn use of Maxalt. Derm - Spot on hand that is bothering her. Nodule at base of 4-5th fingers; seems to be more noticeable now. Previous colonoscopy 06/04; tubular adenoma removed; 5 year follow up recommended. HM - DM Foot, Dr. Kulkarni. Due for Colonoscopy. Past medical history, appointments, medications, allergies reviewed. Previous Medical History PAST MEDICAL HISTORY Diagnosis Date Arthritis in Hands Cervical disc disease Diabetes (HCC) Gout Macular degeneration Other forms of migraine Personal history of colonic polyps Snoring does not use C-pap Previous Surgical History PAST SURGICAL HISTORY Procedure Laterality Date DELIVERY ONLY , low cervical COLONOSCOPY FLX DX W/COLLJ SPEC WHEN PFRMD 01/09/2010 Colonoscopy COLONOSCOPY FLX DX W/COLLJ SPEC WHEN PFRMD 01/15/2011 COLONOSCOPY FLX DX W/COLLJ SPEC WHEN PFRMD 03/27/2016 Colonoscopy COLONOSCOPY FLX DX W/COLLJ SPEC WHEN PFRMD 06/08/2017 Colonoscopy DILATION & CURETTAGE DX&/THER NONOBSTETRIC Dilation & curettage ESOPHAGOGASTRODUODENOSCOPY TRANSORAL DIAGNOSTIC 01/2004 EGD ESOPHAGOGASTRODUODENOSCOPY TRANSORAL DIAGNOSTIC 03/29/2018 EGD LIG/TRNSXJ FLP TUBE ABDL/VAG APPR UNI/BI STEREOTACTIC CORE BIOPSY 07/13/2007 LEFT BREAST- benign TONSILLECTOMY PRIMARY/SECONDARY <AGE 12 Family History FAMILY HISTORY Problem Relation Age of Onset Diabetes Mother Hypertension Mother Hypertension Father Diabetes Father Patient Allergies ALLERGIES Allergen Reactions Cipro [Ciprofloxaci* Hives Metronidazole Hives Penicillins Rash Age 19 -- rash all over, hives Sulfa (Sulfonamide * Rash Current Medications Current Outpatient Medications on File Prior to Visit Medication Sig levothyroxine (SYNTHROID) 75 mcg tablet Take 1 tablet by mouth once daily. fexofenadine (JACQUELINE ALLERGY) 180 mg tablet Take 1 tablet by mouth once daily. glimepiride (AMARYL) 4 mg tablet Take 2 tablets by mouth daily with breakfast. metFORMIN (GLUCOPHAGE) 1,000 mg tablet Take 1 tablet by mouth twice daily with meals. dulaglutide (TRULICITY) 3 mg/0.5 mL pen injector Inject 3 mg subcutaneously one time a week. pantoprazole DR (PROTONIX) 40 mg tablet Take 1 tablet by mouth once daily. vitamin C-biotin (WQKJ-VFHI-UZTRY, VIT C-BIOTIN,) 50 mg -1,250 mcg chew Take 2 tablets by mouth once daily. coenzyme Q10 (CO Q-10) 100 mg cap capsule Take 2 capsules by mouth once daily. EMGALITY PEN 120 mg/mL pen Inject 120 mg subcutaneously once every month. fluorometholone (FML LIQUID FILM) 0.1 % ophthalmic suspension XIIDRA 5 % dpet Use 1 Drop in both eyes twice daily. cranberry fruit extract (CRANBERRY ORAL) Take by mouth. rizatriptan (MAXALT) 10 mg tablet Apple Cider Vinegar 300 mg tab Take 1 tablet by mouth twice daily. MV-MN/FOLIC ACID/CALCIUM/VIT K (ONE-A-DAY WOMEN'S 50 PLUS ORAL) Take by mouth. L.ACID/L.CASEI/B.BIF/B.MINDA/FOS (PROBIOTIC BLEND ORAL) Take by mouth. cycloSPORINE (RESTASIS) 0.05 % ophthalmic emulsion Use 1 Drop in both eyes twice daily. ERYTHROMYCIN BASE (ERYTHROMYCIN OPHTHALMIC) Use in eyes. VIT C/NARCISA AC/LUT/COPPER/ZNOX (PRESERVISION LUTEIN ORAL) Take 1 tablet by mouth twice daily. No current facility-administered medications on file prior to visit. Social History Social History Tobacco Use Smoking status: Former Packs/day: 0.25 Years: 3.00 Pack years: 0.75 Types: Cigarettes Quit date: 06/08/1975 Years since quittin.0 Smokeless tobacco: Never Vaping Use Vaping Use: Never used Substance Use Topics Alcohol use: Yes Comment: rare, once a year Drug use: No EXAM: BP 136/84 (BP Site: Left Arm, BP Position: Sitting, BP Cuff Size: Regular Adult) Pulse 80 Resp 16 Wt 79.2 kg (174 lb 9.6 oz) LMP 01/31/2005 BMI 35.26 kg/m General Appearance: Well appearing, alert, in no acute distress, well-hydrated, well nourished.. Skin: left hand - web space between 4-5th fingers has 2-3 mm pearly nodule. Lungs: Lungs clear to auscultation. No wheezing, rhonchi, rales.. Heart: RRR without murmur, gallop, or rubs. No ectopy. Health Maintenance List ADVANCE DIRECTIVE DISCUSSION Never done COVID-19 VACCINE(4 - Booster for Moderna series) due on 02/01/2022 HBA1C due on 05/21/2022 URINE ALBUMIN:CREATININE RATIO due on 05/09/2022 DIABETIC FOOT EXAM due on 05/24/2022 COLORECTAL CANCER SCREENING due on 06/08/2022 INFLUENZA(1) due on 06/19/2022 DILATED RETINAL EXAM due on 08/19/2022 DEPRESSION SCREENING due on 11/26/2022 MAMMOGRAM due on 12/13/2022 LDL CHOLESTEROL due on 02/18/2023 ANNUAL PCP TEAM CHRONIC DISEASE VISIT due on 02/25/2023 DTAP,TDAP,TD(3 - Td or Tdap) due on 12/01/2028 BONE DENSITY Completed HEPATITIS C SCREENING Completed SHINGRIX VACCINE Completed PNEUMOCOCCAL: 65+ Completed Data reviewed Appointment on 05/28/2022 Component Date Value TSH 05/28/2022 2.340 Protein, Total 05/28/2022 7.7 Albumin 05/28/2022 4.7 Calcium, Total 05/28/2022 9.5 Bilirubin, Total 05/28/2022 0.5 Alkaline Phosphatase 05/28/2022 100 AST 05/28/2022 39 (A) ALT 05/28/2022 30 Glucose 05/28/2022 116 (A) BUN 05/28/2022 13 Creatinine 05/28/2022 0.72 Sodium 05/28/2022 140 Potassium 05/28/2022 4.3 Chloride 05/28/2022 101 CO2 05/28/2022 25 Anion Gap 05/28/2022 14 Estimated Glomerular Kyle* 05/28/2022 92 Hemoglobin A1C 05/28/2022 7.6 (A) Estimated Average Glucose 05/28/2022 171 Creatinine, Ur Random (U* 05/28/2022 201.9 Albumin, Urine Random 05/28/2022 <12.0 Albumin/Creat Ratio 05/28/2022 <6 Uric Acid 05/28/2022 4.8 ASSESSMENT/PLAN: 1. Type 2 diabetes mellitus without complication, without long-term current use of insulin (HCC) - ICD9: 250.00, ICD10: E11.9 (primary diagnosis) Controlled. - Continue current medications - COMP METABOLIC PANEL - LIPID PANEL BASIC - HGB A1C 2. Globus sensation - ICD9: 306.4, ICD10: R09.89 - PANTOPRAZOLE 40 MG TABLET,DELAYED RELEASE 3. Screening for colon cancer - ICD9: V76.51, ICD10: Z12.11 - CONSULT TO GENERAL SURGERY 4. Hypothyroidism, unspecified type - ICD9: 244.9, ICD10: E03.9 - Instructed patient on importance of taking on an empty stomach either first thing in the morning or at bedtime. - continue current dose of Synthroid 0.075 mg - CBC - TSH BLD 5. Gout, unspecified cause, unspecified chronicity, unspecified site - ICD9: 274.9, ICD10: M10.9 - URIC ACID BLOOD 6. Medication monitoring encounter - ICD9: V58.83, ICD10: Z51.81 - TSH BLD - VITAMIN B12 BLOOD 7. Mucous cyst of digit of left hand - ICD9: 727.43, ICD10: M67.442 - CONSULT TO GENERAL SURGERY Follow up in 6 months Medical Decision Making: Problems: Moderate: 2+ stable chronic illnesses Data: Unique test result(s) reviewed: 3+ Unique test(s) ordered: 3+ Risk: Moderate: Drug management Medical Decision Making Level: 4 - Moderate Taty Julian MD [facility] History of Present illness Narrative* Bill Kulkarni Jr., DPM - 03/19/2022 8:19 AM EDT Right foot and ankle pain Patient is a pleasant 66-year-old female following up today for right foot and ankle swelling and pain. She states that she is been compliantly wearing her cam boot for the last 4 weeks and feeling tremendously better. Additionally took her oral meloxicam for 2 weeks and said that she did great with that. Currently pain-free. Excited and optimistic. Did get an updated A1c however states that her A1c is getting worse trending up on this with her team. Physical Vascular: DP PT pulses are easily palpable 2-4. CFT is fair no edema. Derm: No open wounds no ulcers no rashes noted nodules. Neuro: Light touch is fair Babinski's is normal. Musculoskeletal: Muscle strength is 5/5 with fair tone. Can easily wiggle toes. Today there is no pain across the ankle and midfoot. Ankle subtalar range of motion is full and pain-free. Assessment and plan: Patient is a pleasant 66-year-old female with improved right foot and ankle pain. -She has started with interdigital maceration with fifth toe and fourth toe.-Can start topical Betadine once to twice daily for the next 2 weeks then discontinue. -Regarding her cam boot and slowly discontinue this over the next couple days back to diabetic shoes. -Did encourage her to follow-up tightly with her A1c as it is rising with her primary care provider. Low medical complexity decision making due to her elevated morbidity from her diabetes. documented in this [id number] Instructions* Patient Instructions* Bill Kulkarni Jr., DPM - 03/19/2022 8:18 AM EDT Apply betadine between toe daily for 2 weeks documented in this [id number] History of Present illness Narrative* Bill Kulkarni Jr., DPM - 02/18/2022 12:00 PM EDT Right ankle pain. Patient is a pleasant diabetic female with a 1 week history of right ankle pain generally acute. She states it happened on nowhere denies any trauma. She has been doing well in general with her gout taking her allopurinol 100 mg twice daily. Comes in today to have this evaluated wants make sure breathing is okay. She states that she was not hurt though the pain is getting worse nearly day by day. Physical Vascular: DP PT pulses are easily palpable 2/4. CFT is fair minimal edema. Derm: No erythema no open wounds no ulcers no deep nodules. Neuro: Light touch is normal Babinski's is normal Musculoskeletal: Does have anterior medial ankle pain no clicking or catching. No loss of tendon strength. X-rays AP oblique lateral: No fractures no dislocations no subluxations. Mild edema. Assessment and plan: Patient is a pleasant female with possible acute on chronic gout versus Charcot ankle. -Today did prescribe immobilization. Prior to this she was walking. Did prescribe a cam boot to help immobilize her ankle. Okay to take this off and rest sleep shower. Additionally did refill her allopurinol 100 mg twice daily. Last hemoglobin A1c was 9+, last uric acid was 4. -Additionally for the acute portion, to start her on a 10-day prescription of meloxicam 15 mg once daily 0 refills. Follow-up in 3 to 4 weeks to reevaluate ankle. Low medical complexity decision making. documented in this [id number] Telephone encounter Note* Telephone Encounter - YARIEL SinghOLOGIST - 02/14/2022 9:00 AM EDT Spoke with patient. She requested Rx to be sent to [facility] [id number] Miscellaneous Notes* Telephone Encounter - YARIEL SinghOLOGIST - 02/14/2022 9:00 AM EDT Spoke with patient. She requested Rx to be sent to [facility] * Telephone Encounter - YARIEL SinghOLOGIST - 02/14/2022 8:56 AM EDT Patient states the Rx was sent to the mail order and the last bottle said no refills. Please send Rx to her local pharmacy. [facility] [place]. * Telephone Encounter - Bill Kulkarni Jr., DPM - 02/13/2022 5:13 PM EDT It looks like she has a script from 10/09/2021 with 11 refills. [facility] documented in this [id number] Telephone encounter Note* Telephone Encounter - YARIEL SinghOLOGIST - 02/14/2022 8:56 AM EDT Patient states the Rx was sent to the mail order and the last bottle said no refills. Please send Rx to her local pharmacy. [facility] [place]. [id number] Telephone encounter Note* Telephone Encounter - Billradhames Kulkarni Jr., DPM - 02/13/2022 5:13 PM EDT It looks like she has a script from 10/09/2021 with 11 refills. I think she just has to call [facility] to get it. [id number] History of Present illness Narrative* Billdeanna Kulkarni Jr., DPM - 12/18/2021 8:22 AM EST B/l heel pain Patient is a pleasant 66-year-old diabetic female who comes in today following up on her right heelpain. States today that she is additionally getting left heel pain. Does admit that her A1c howevershe believes got a bit worse and now standing at 9.1%. States that she is been try to take it easy and has no new trauma. Physical Vascular: DP PT pulses are generally preserved. CFT is fair no edema today. Derm: No open wounds no ulcers no rashes no deep nodules. Neuro: Light touch is normal Babinski's is normal. Musculoskeletal: Muscle strength is 5/5 fair tone. Still with pain bilaterally to the fascial origin. Ankle subtalar midtarsal are full and pain-free otherwise. Assessment and plan: Patient is a pleasant 66-year-old female with acute on chronic bilateral plantar fasciitis and heel pain. -In light of her elevated A1c, the risks of surgical invention currently outweigh the benefit. Again would like her to have her A1c below 8% to proceed with a likely right foot EPF based on her priorMRI. Additionally as she is currently on indomethacin, will not add any updated NSAIDs and she is disinterested in proceeding with a steroid injection therefore can continue to pursue diligent at home physical therapy icing and stretching. Follow-up in 3 months to reevaluate. Low medical complexity decision making based on her elevated morbidity due to her chronic diabetes documented in this [id number] History of Present illness Narrative* Bill Kulkarni Jr., DPM - 10/09/2021 9:07 AM EST HPI Chief Complaint Patient presents with Results Review MRI Patient is a pleasant 66-year-old female who comes in today with follow-up right heel pain. States that she was able to get her MRI without any issues. She still complains of substantial right heel pain though states is not getting any better despite NSAIDs steroids and rest. Wondering what her next option is. 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 Respiratory: Negative for shortness of breath. Cardiovascular: Negative for chest pain, palpitations and leg swelling. Skin: Negative for color change and wound. Physical Exam -Patient is AOx3. Linear and appropriate humor and thought process. Vascular: DP PT pulses are easily palpable 2-4. CFT is fair no edema. Derm: No open wounds no ulcers no rashes no deep nodules. Neuro: Light touch is normal Babinski's is normal. Musculoskeletal: Muscle strength is 5/5 with fair tone. Can easily wiggle toes. Substantial heel pain to the right heel negative Achilles pain negative lateral calcaneal squeeze test. Ankle subtalar midtarsal is full and pain-free. MRI images reviewed consistent with substantial plantar fascial thickening and chronic tearing withenthesophyte present. Otherwise no fractures no dislocations no subluxations. Impression/Plan Problem List Items Addressed This Visit None Visit Diagnoses Plantar fasciitis - Primary Gout of right foot due to renal impairment, unspecified chronicity Relevant Medications allopurinoL (ZYLOPRIM) 100 MG tablet Patient is a pleasant female with moderate to severe acute on chronic plantar fasciitis right heel and chronic gout. -Did renew her allopurinol 100 mg. -Regarding her plantar fascia, she would substantially benefit from a endoscopic plantar fasciotomy. However at this time her A1c remains at 8.7%. Would like to get this done sooner given her MRI however did offer her an updated A1c though she declined. States that she will wait until late Novemberto get her new A1c to see where it is and then return in early December to likely book case. If she sole ls to improve her A1c could strongly consider an endocrinology consult. Moderate medical complexity decision making based on her diabetes altering her surgical plan due torisks documented in this [id number] History of Present illness Narrative* Bill Kulkarni Jr., DPM - 09/20/2021 8:11 AM EST Right heel pain Patient is a pleasant 66-year-old type II diabetic female who comes in today with substantial rightheel pain. States her heel is very sore and uncomfortable. Back in May she did go on vacation [facility] where she did much uphill and sand walking. Additionally has now been immobilized in [facility] on Meloxicam and now going backwards, worsening pain and lump. Hemoglobin A1c: 7.7%. May 09, 2021 Upon discussing her hemoglobin A1c of 7.7%, she is adamant that when she saw the doctor at [facility] in May that her last A1c was 8.6%. I showed her that it was 7.7% in April and she still said she is positive it was 8.6% therefore will continue under the assumption that it is 8.6% as this does change the treatment going forward. Physical Vascular: DP PT pulses are easily palpable 2-4. Mild foot and ankle edema. Derm: No open wounds no ulcers no rashes no deep nodules. Neuro: Light touch is blunted Babinski's is blunted. Musculoskeletal: Muscle strength is 5/5 fair tone. Substantial pain on palpation of the right foot plantar fascial origin negative out calcaneal squeeze test. Achilles is full and pain-free. Can easily wiggle toes. Gait and station exam is antalgic with guarding with the assistance of a cane Assessment and plan Patient is a pleasant 66-year-old female with substantial right foot plantar fasciitis heel spur syndrome with pain in light of her type 2 diabetes with poor peripheral neuropathy. -Patient has tried and failed substantial conservative therapy including NSAIDs at home therapy immobilization steroids all to no avail. -Therefore did order an MRI without contrast to work-up differential including plantar fasciitis versus plantar fascial fibromatosis. Follow-up on imaging to consider booking case. Low medical complexity decision making based on chronicity of pain and its waxing waning character in light of her type 2 diabetes mellitus documented in this [id number] Miscellaneous Notes* Addendum Note - Bill Kulkarni Jr., DPM - 08/23/2021 8:50 AM EDT Addended by: BILL KULKARNI on: 08/23/2021 08:50 AM Modules accepted: Orders documented in this [id number] Miscellaneous Notes* Addendum Note - Bill Kulkarni Jr., DPM - 08/23/2021 8:50 AM EDT Addended by: BILL KULKARNI on: 08/23/2021 08:50 AM Modules accepted: Orders documented in this [id number] History of Present illness Narrative* Bill Kulkarni Jr., DPM - 08/23/2021 8:37 AM EDT Right heel pain Patient is a pleasant 66-year-old type II diabetic female who comes in today with substantial rightheel pain. States her heel is very sore and uncomfortable. Back in May she did go on vacation [facility] where she did much uphill and sand walking. Denies any trauma. States her heel on her right foot is substantially sore painful uncomfortable tingling burning. Additionally admits to post dive dyskinesia. - Hemoglobin A1c: 7.7%. May 09, 2021 Upon discussing her hemoglobin A1c of 7.7%, she is adamant that when she saw the doctor at [facility] in May that her last A1c was 8.6%. I showed her that it was 7.7% in April and she still said she is positive it was 8.6% therefore will continue under the assumption that it is 8.6% as this does change the treatment going forward. Physical Vascular: DP PT pulses are easily palpable 2-4. Mild foot and ankle edema. Derm: No open wounds no ulcers no rashes no deep nodules. Neuro: Light touch is blunted Babinski's is blunted. Musculoskeletal: Muscle strength is 5/5 fair tone. Substantial pain on palpation of the right foot plantar fascial origin negative out calcaneal squeeze test. Achilles is full and pain-free. Can easily wiggle toes. Gait and station exam is antalgic with guarding with the assistance of a cane X-rays right foot AP oblique lateral: Clear and obvious calcaneal enthesophyte otherwise no fractures no dislocations no subluxations. Some mild plantar fascial edema. Assessment and plan Patient is a pleasant 66-year-old female with substantial right foot plantar fasciitis heel spur syndrome with pain in light of her type 2 diabetes with poor peripheral neuropathy. -After reviewing her labs A1c and discussing, she is adamant that it is 8.6% therefore based on this will defer steroid specifically injectable. -As a compromise did start her on oral meloxicam 15 mg once a day for 21 days 21 tabs 0 refills. -Additionally in light of the likely margination fascial tearing, this does require immobilization. -Therefore did prescribe dispense and fit her with a cam boot which is medically necessary for the next 4-8 weeks. Low medical complexity decision making based on comorbidities altering treatment course. documented in this [id number] History of Present illness Narrative* Bill Kulkarni Jr., DPM - 08/23/2021 8:37 AM EDT Right heel pain Patient is a pleasant 66-year-old type II diabetic female who comes in today with substantial rightheel pain. States her heel is very sore and uncomfortable. Back in May she did go on vacation [place] where she did much uphill and sand walking. Denies any trauma. States her heel on her right foot is substantially sore painful uncomfortable tingling burning. Additionally admits to post dive dyskinesia. - Hemoglobin A1c: 7.7%. May 09, 2021 Upon discussing her hemoglobin A1c of 7.7%, she is adamant that when she saw the doctor at [facility] in May that her last A1c was 8.6%. I showed her that it was 7.7% in April and she still said she is positive it was 8.6% therefore will continue under the assumption that it is 8.6% as this does change the treatment going forward. Physical Vascular: DP PT pulses are easily palpable 2-4. Mild foot and ankle edema. Derm: No open wounds no ulcers no rashes no deep nodules. Neuro: Light touch is blunted Babinski's is blunted. Musculoskeletal: Muscle strength is 5/5 fair tone. Substantial pain on palpation of the right foot plantar fascial origin negative out calcaneal squeeze test. Achilles is full and pain-free. Can easily wiggle toes. Gait and station exam is antalgic with guarding with the assistance of a cane X-rays right foot AP oblique lateral: Clear and obvious calcaneal enthesophyte otherwise no fractures no dislocations no subluxations. Some mild plantar fascial edema. Assessment and plan Patient is a pleasant 66-year-old female with substantial right foot plantar fasciitis heel spur syndrome with pain in light of her type 2 diabetes with poor peripheral neuropathy. -After reviewing her labs A1c and discussing, she is adamant that it is 8.6% therefore based on this will defer steroid specifically injectable. -As a compromise did start her on oral meloxicam 15 mg once a day for 21 days 21 tabs 0 refills. -Additionally in light of the likely margination fascial tearing, this does require immobilization. -Therefore did prescribe dispense and fit her with a cam boot which is medically necessary for the next 4-8 weeks. Low medical complexity decision making based on comorbidities altering treatment course. After leaving the room, patient states to the nursing staff that she additionally needs a refill ofher allopurinol for the next 90 days called in electronically. -Therefore did refill her allopurinol 100 mg twice daily.-Additionally did add a CMP and uric acid panel. Follow-up 1 month review heel pain documented in this [id number] History of Present illness Narrative* Bill Kulkarni Jr., DPM - 05/24/2021 8:27 AM EDT Left heel pain Patient is a pleasant 65-year-old type II diabetic female who follows up for left heel pain. Her last A1c is 7.7%. She states that she did fairly well with her steroid injection 2 months ago and again better with her last 30-day prescription of oral meloxicam. She took the meloxicam symptom free and side effect free without any ill effect. She does state that she is still in mild pain 1 out of 10to 2 out of 10 much improved. Physical Vascular: DP PT pulses are preserved. CFT is fair no edema Derm: No open wounds no ulcers no rashes no deep nodules. Neuro: Light touch is intact but blunted Babinski's is fair. Musculoskeletal: Still with pain to the left foot plantar fascial origin and mid substance plantar fascia and fascial fibromatosis. Either way ankle subtalar midtarsal are full and pain-free. Assessment and plan: Patient is a pleasant type II diabetic female with acute on chronic left foot plantar fasciitis and plantar fascial fibromatosis. -Today did offer her an updated steroid shot though she declined -Therefore can discontinue her NSAIDs the meloxicam without any refills and simply rest and ice. Advil as needed. Follow-up in 2 months for repeat steroid injection. If that fails to improve her may need to consider MRI for an excision. documented in this [id number] History of Present illness Narrative* Jacqueline Lau (Rt), Tech - 10/30/2020 10:10 AM EST Radiology Service Progress Note PATIENT NAME: Krista Campbell DATE OF SERVICE: October 30, 2020 TIME: 10:06 AM PATIENT IDENTITY VERIFICATION COMPLETED USING TWO (2) IDENTIFIERS: Name and Date of confirmedby patient verbally. FALL SCREENING: Has the patient had 2 falls in the last year or 1 fall with injury or currently using an Ambulatory Assistive Device (Walker, Cane, Wheelchair, Crutches, etc.)? No PATIENT GENDER DATA: Female. status: : No status: NO. PATIENT RELEVANT IMPLANT DATA REVIEWED: Yes RADIOLOGY DEPARTMENT: General X-ray: Exam(s) Completed: Chest X-Ray PERIPHERAL IV DATA: Not applicable SIGNED BY: RT Maia October 30, 2020 10:06 AM [facility] History of Past illness Narrative* Problem Noted Date Resolved Date Screening for colon cancer 03/27/201603/27 Nonspecific abnormal finding in stool contents 0 01/09/2010 08/20/2011 Abnormal mammogram, unspecified 06/14/2007 08/20/2011 documented as of this encounter (statuses as of 06/02/2022) [facility] of [facility] illness Narrative* Problem Noted Date Resolved Date Screening for colon cancer 03/27/201603/27 Nonspecific abnormal finding in stool contents 0 01/09/2010 08/20/2011 Abnormal mammogram, unspecified 06/14/2007 08/20/2011 documented as of this encounter (statuses as of 06/17/2022) [facility] of [facility] Narrative* Problem Noted Date Resolved Date Screening for colon cancer 03/27/201603/27 Nonspecific abnormal finding in stool contents 0 01/09/2010 08/20/2011 Abnormal mammogram, unspecified 06/14/2007 08/20/2011 documented as of this encounter (statuses as of 07/02/2022) [facility] of Past illness Narrative* Problem Noted Date Resolved Date Screening for colon cancer 03/27/201603/27 Nonspecific abnormal finding in stool contents 0 01/09/2010 08/20/2011 Abnormal mammogram, unspecified 06/14/2007 08/20/2011 documented as of this encounter (statuses as of 07/08/2022) [facility] History of Past illness Narrative* Problem Noted Date Resolved Date Screening for colon cancer 03/27/201603/27 Nonspecific abnormal finding in stool contents 0 01/09/2010 08/20/2011 Abnormal mammogram, unspecified 06/14/2007 08/20/2011 documented as of this encounter (statuses as of 07/12/2022) [facility] of Past illness Narrative* Problem Noted Date Resolved Date Screening for colon cancer 03/27/201603/27 Nonspecific abnormal finding in stool contents 0 01/09/2010 08/20/2011 Abnormal mammogram, unspecified 06/14/2007 08/20/2011 documented as of this encounter (statuses as of 07/18/2022) [facility] History of Past illness Narrative* Problem Noted Date Resolved Date Screening for colon cancer 03/27/201603/27 Nonspecific abnormal finding in stool contents 0 01/09/2010 08/20/2011 Abnormal mammogram, unspecified 06/14/2007 08/20/2011 documented as of this encounter (statuses as of 09/15/2022) [facility] of Past illness Narrative* Problem Noted Date Resolved Date Screening for colon cancer 03/27/201603/27 Nonspecific abnormal finding in stool contents 0 01/09/2010 08/20/2011 Abnormal mammogram, unspecified 06/14/2007 08/20/2011 documented as of this encounter (statuses as of 11/20/2022) [facility] of Past illness Narrative* Problem Noted Date Resolved Date Screening for colon cancer 03/27/201603/27 Nonspecific abnormal finding in stool contents 0 01/09/2010 08/20/2011 Abnormal mammogram, unspecified 06/14/2007 08/20/2011 documented as of this encounter (statuses as of 12/04/2022) [facility] of Past illness Narrative* Problem Noted Date Resolved Date Screening for colon cancer 03/27/201603/27 Nonspecific abnormal finding in stool contents 0 01/09/2010 08/20/2011 Abnormal mammogram, unspecified 06/14/2007 08/20/2011 documented as of this encounter (statuses as of 01/07/2023) [facility] of Past illness Narrative* Problem Noted Date Resolved Date Screening for colon cancer 03/27/201603/27 Nonspecific abnormal finding in stool contents 0 01/09/2010 08/20/2011 Abnormal mammogram, unspecified 06/14/2007 08/20/2011 documented as of this encounter (statuses as of 01/26/2023) [facility] of Past illness Narrative* Problem Noted Date Resolved Date Screening for colon cancer 03/27/201603/27 Nonspecific abnormal finding in stool contents 0 01/09/2010 08/20/2011 Abnormal mammogram, unspecified 06/14/2007 08/20/2011 documented as of this encounter (statuses as of 01/29/2023) [facility] of [facility] illness Narrative* Problem Noted Date Resolved Date Screening for colon cancer 03/27/201603/27 Nonspecific abnormal finding in stool contents 0 01/09/2010 08/20/2011 Abnormal mammogram, unspecified 06/14/2007 08/20/2011 documented as of this encounter (statuses as of 02/19/2023) [facility] of Past illness Narrative* Problem Noted Date Resolved Date Screening for colon cancer 03/27/201603/27 Nonspecific abnormal finding in stool contents 0 01/09/2010 08/20/2011 Abnormal mammogram, unspecified 06/14/2007 08/20/2011 documented as of this encounter (statuses as of 03/16/2023) [facility] of [facility] illness Narrative* Problem Noted Date Diagnosed Date Resolved Date Screening for colon cancer 03/27/2016 0 03/27/2016 Nonspecific abnormal finding in stool contents 01/09/2010 08/20/2011 Abnormal mammogram, unspecified 06/14/2007 08/20/2011 documented as of this encounter (statuses as of 06/11/2023) [facility] of Past illness Narrative* Problem Noted Date Diagnosed Date Resolved Date Screening for colon cancer 03/27/2016 0 03/27/2016 Nonspecific abnormal finding in stool contents 01/09/2010 08/20/2011 Abnormal mammogram, unspecified 06/14/2007 08/20/2011 documented as of this encounter (statuses as of 12/11/2023) [facility]anan [facility] Note Date/Time February 27, 2025 6:26a m [facility] Medical Records Department [address] [place] [address] Pre-Anesthesia Evaluation 02/27/25 0619 MR#: [id number] Acct: [id number] Name: KRISTA CAMPBELL Rep #:[id number] : 1955 69 From: Suresh Buchanan MD PCP: Dr. Taty Julian MD Status:RE G [facility] Race: C Location: [place] [address] ASA Classification* ASA Classification ASA Classification: 2 Assessment & Plan Anesthesia* Anesthesia Assessment Anesthesia Assessment: Discussed sedation and/or anesthesia options, risks, benefits, and alternatives with patient/parents/legal guardian/POA. Questions invited. The patient/parents/legal guardian/POA seems to understand and agrees to proceedwith anesthesia plan. Reviewed the physical assessment, medical history, allergy history and patient home medications list prior to surgery/procedure/anesthetic and documented any changes. Performed airway and anesthesia risk assessments. Anesthesia Type Anesthesia Type: MAC History Source History Obtained from:: Patient and Chart Anesthesia Focused Assessment* Temperature: 97.7 F Pulse Rate: 77 Blood Pressure: 102/65 Respiratory Rate: 18 Pulse Ox: 98 Oxygen Delivery Method: Room Air Airway Assessment Mouth opens: >3 cm Mallampati Score: I Teeth Condition: Dentures (Patient has full upper dentures. They are out.) Neck Range of motion (ROM): Full ROM Focused Labs Anesthesia Preop lab: CBC WBC 4.7 K/mm3 (4.4-11.0) 12/24/24 10:12/24/24 RBC 3.67 M/mm3 (4.2-5.4) L 12/24/24 10:12/24/24 Hgb 8.0 g/dL (12.0-15.0) L 12/24/24 10:12/24/24 Hct 29.6 % (37-47) L 12/24/24 10:12/24/24 Plt Count 68 K/mm3 (150-450) L 12/24/24 10:12/24/24 CHEMISTRY Potassium 4.1 mmol/L (3.3-5.1) 12/24/24 10:26 12/24/24 Sodium 138 mmol/L (133-145) 12/24/24 10:12/24/24 Magnesium 2.0 mg/dL (1.6-2.6) 01/19/23 05:35 01/19/23 BUN 12 mg/dL (4-19) 12/24/24 10:12/24/24 Creatinine 0.65 mg/dL (0.70-1.20) L 12/24/24 10: Glucose 282 mg/dL (70-99) H 12/24/24 10:12/24/24 POC Glucose 122 mg/dL (74-106) H 11/09/24 14:14 11/09/24 TSH 2.39 uIU/mL (0.358-3.74) 04/19/20 07:25 COAG PT 13.6 SECONDS (11.7-14.9) 12/24/24 10: Pre-Assessment Diagnosis/Proposed Procedure Planned Operative Procedure(s): EGD Anesthesia History Anesthesia History - water proofer: Anesthesia History - water proofer Hx Hospitalization No 02/23/25 09:02 Any Problems With Anesthesia No 02/23/25 09:02 Cholinesterase deficiency No 02/23/25 09:02 You/Your Family Experience No 02/23/25 09:02 fever (hyperthermia) with Relationship Recent Exposure to Contagious No 02/27/25 05:59 Disease Does patient have nerve No 02/23/25 09:02 stimulator Patient instructed to have device shut off --Does patient have Pacemaker No 02/27/25 05:59 or ICD? When Was Last Pacemaker Check QUESTION #4 FULL TEXT: You/Your Family Experience fever (hyperthermia) with Anesthesia Last Oral Intake Last Oral intake: Last Oral Intake NPO since 19:00 02/27/25 05:59 Meds taken in AM with sips of Yes 02/27/25 05:59 water? Meds patient instructed to take am of surgery Any additional information?: Yes Meds taken in AM with sips of water?: Yes PONV PONV - water proofer: PONV - water proofer Female Yes 02/23/25 09:02 HX of Motion Sickness No 02/23/25 09:02 HX of N/V After Surgery No 02/23/25 09:02 Non-Smoker Yes 02/23/25 09:02 Duration of Surgery greater No 02/23/25 09:02 than 60 minutes Number of Risk Factors 2 02/23/25 09:02 PONV Score Moderate Risk 02/23/25 09:02 Height & Weight Height & Weight: Anesthesia: Height & Weight Height 4 ft 11 in 02/27/25 05:59 Weight: 69.7 kg 02/27/25 05:59 Body Mass Index (BMI) 31.0 02/27/25 05:59 Respiratory Assessment Respiratory Assessment - water proofer: Respiratory Tract Infection Hx - water proofer Hx Respiratory Tract Infection No 02/23/25 09:02 STOP Sleep Apnea STOP Sleep Apnea - water proofer: STOP Sleep Apnea - water proofer Hx Hypertension Yes 02/23/25 09:02 Hx Sleep Apnea No 02/23/25 09:02 CPAP BIPAP Do you snore loudly (louder No 02/23/25 09:02 than talking or can be heard Do you often feel tired/ No 02/23/25 09:02 fatigued/ sleepy during daytime? Has anyone observed you stop No 02/23/25 09:02 breathing during sleep? STOP Results Negative 02/23/25 09:02 QUESTION #5 FULL TEXT : Do you snore loudly (louder than talking or can be heard through closed doors)? 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 Specify any problems Hx of Preganancy in last 3 No 02/23/25 09:02 Months Nurse Filling Out Transfusion [facility] 02/23/25 09:02 & Questions: Date: 02/23/25 02/23/25 09:02 Time: 09:04 02/23/25 09:02 Patient unable to answer at this time (ie. 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 Hx Now Gestational Age (in weeks): EDC: Hx Hx Para Hx Section SAB No 11/07/24 08:57 Active Medications Active Medications: Current Medications Generic Name Dose Route Start Last Admin Trade Name Freq PRN Reason Stop Dose Admin Lactated Ringer's 1,000 mls @ 15 mls/hr 02/27/25 05:45 02/27/25 06:08 IV 15 mls/hr .Q48H WESLEY Administration PFSH Medical History Back pain Wears glasses Thyroid disease Gout Arthritis Anemia High cholesterol History of GI bleed History of diverticulitis Gastric reflux Former smoker History of edema History of echocardiogram History of stress test Hypertension Diabetes Migraines Home Medications ?Medication ?Instructions ?Recorded ?Last Taken ?Type rizatriptan 10 mg tablet 10 mg PO PRN PRN Migraine He adache 12/28/13 Unknown History Lactobacillus acidophilus 10 mg PO DAILY Check with pr imary 01/18/23 02/19/25 History (Acidophilus capsule) doctor allopurinol 100 mg tablet 100 mg PO DAILY Check with p rimary 01/18/23 02/26/25 History doctor cyclosporine 0.05 % eye drops in a 1 drp ophthalmic (e ye) BID health 01/18/23 02/26/25 History dropperette (Restasis) maintenance erythromycin 5 mg/gram (0.5 %) eye 1 applic ophthalmic (eye) QHS 01/18/23 02/26/25 History ointment health maintenance ezetimibe 10 mg tablet 10 mg PO DAILY Check with pr imary 01/18/23 02/26/25 Histo ry doctor fluorometholone 0.1 % eye 1 drp ophthalmic (eye) BID h ealth 01/18/23 02/26/25 History drops,suspension maintenance gabapentin 400 mg tablet 800 mg PO QHS health mainten ance 01/18/23 02/26/25 History galcanezumab-gnlm 120 mg/mL 120 mg subcut QMONTH Check with 01/18/23 02/24/25 History subcutaneous pen injector primary doctor (Emgality Pen) metformin 1,000 mg tablet 1,000 mg PO BID diabetic 12/1111/08/24 History multivitamin with minerals 2 tab PO DAILY Check with p rimary 01/18/23 02/19/25 History (Hair,Skin and Nails tablet) doctor cpbzhgsenegd-Dj-tznf-minerals 18 2 tab PO DAILY health maintenance 01/18/23 02/19/25 History mg-0.4 mg tablet vit C 250 mg-vit E 90 mg-zinc 40 1 tab PO BID Check wi th primary 01/18/23 U nknown History mg-copper 1 wt-tmfwlv-uucrrd doctor capsule (PreserVision AREDS-2) magnesium 200 mg tablet 200 mg PO DAILY Check with p rimary 07/04/24 02/19/25 History doctor lactulose 20 gram/30 mL oral 20 g PO QDAY 07/15/2409/12 History solution spironolactone 25 mg tablet 25 mg PO DAILY 1 month #30 tabs 07/15/24 02/26/25 Rx rifaximin 550 mg tablet (Xifaxan) 550 mg PO BID 30 day s #60 tabs 09/28/24 02/26/25 Rx ascorbic acid (vitamin C) 500 mg 500 mg PO BID 1 month #60 tabs 12/29/24 02/19/25 Rx chewable tablet dulaglutide 3 mg/0.5 mL 4.5 mg subcut TH Check with 12/29/24 02/09/25 History subcutaneous pen injector primary doctor (Benulicjose a) elderberry fruit 350 mg capsule 700 mg PO QDAY 5 02/19/25 History ferrous sulfate 325 mg (65 mg 325 mg PO QDAY 1 month # 30 tabs 12/29/24 02/19/25 Rx iron) tablet levothyroxine 75 mcg tablet 75 mcg PO QDAY 1 month #30 tabs 12/29/24 02/27/25 Rx pantoprazole 40 mg tablet,delayed 40 mg PO QDAY 02/27/25 History release vit C 62.5 mg-vit D3 15 mcg-zinc 2 tab PO QDAY 5 02/19/25 History 2.75 mg-herbal no.358 chewable tablet ([employer]) carvedilol 6.25 mg tablet 6.25 mg PO BID 1 month #60 t abs 01/19/25 02/27/25 Rx Allergy/AdvReac Type Severity Reaction Status Date / Time ciprofloxacin (From Cipro) Allergy Other Verified 02/27/25 05:56 ciprofloxacin HCl (From Allergy Other Verified 02/27/25 05:56 Cipro) metronidazole Allergy Other Verified 02/27/25 05:56 Penicillins (PCN) Allergy Other Verified 02/27/25 05:56 Sulfa (Sulfonamide Allergy Rash Verified 02/27/25 05:56 Antibiotics) Jibxyus-CCS-WyC Reductase AdvReac Other Verified 02/27/25 05:56 Inhibitor Family History Grandfather Diabetes Grandmother Diabetes Father Heart problem Mother CVA (cerebral vascular accident) Surgical History History of esophagogastroduodenoscopy (EGD) Hx of esophagogastroduodenoscopy Hx of tonsillectomy History of Status post left foot surgery Social History Smoking Status: Never smoker alcohol intake: never substance use type: does not use Review of Systems (Anesthesia) ROS Narrative System reviewed and no additional complaints, except as documented. 02/27/25625 <Electronically signed by Suresh mendoza MD> Date _ Suresh Buchanan MD Cosigner Signature: Date CC: ~ Signed [facility] Work Phone: Consult note Author Eder Mcrae [facility] Note Date/Time February 27, 2025 7:49a m [facility] Medical Records Department [address] [place] [address] Anesthesia Postop Eval I 02/27/25711 MR#: [id number] Acct: [id number] Name: KRISTA CAMPBELL Rep #:[id number] : 1955 69 From: Eder Mcrae PCP: Dr. Taty Julian MD Status:RE G SD[facility] Y Race: C Location: [place] [address] Anesthesia: Postop Eval I Current Vital Signs Temperature: 97.9 F Pulse Rate: 81 Blood Pressure: 104/69 Respiratory Rate: 16 Pulse Ox: 95 Oxygen Delivery Method: Room Air Assessment Airway patent: Yes Spontaneous unlabored respirations: Yes Mental status: Asleep nausea: No Vomiting: No Anesthesia Complication: No Fluid Hydration Crystalloid volume administer (ml): 300 Total IV fluid infused: 300 Progress Note Anesthesia document: Postop Eval 1 completed: Yes 02/27/25711 <Electronically signed by Eder Mcrae > Date _ Eder Peace Signature: Date CC: ~ Signed [facility] Work Phone: Discharge summary Author Dr. Moreno [facility] January 21, 2023 4:04pm Note Date/Time January 21, 2023 3:54 pm [facility] Medical Records Department [address] [place] [address] Instructions for Home/Discharge Instructions 01/21/23 1552 MR#: [id number] Acct: [id number] Name: KRISTA CAMPBELL Rep #:[id number] : 1955 67 From: Gerber rivas MD PCP: Dr. Taty Julian MD Status:AD M IN Discharge Instructions Diet Discharge Diet: Low fat / Low cholesterol and Carb Control Diet Activity Discharge Activity: Return to Normal Activity Dressing / Incision Call your doctor if you observe: Fever of 101 or Higher, Shortness of breath, Dizziness, Fainting spells, Swelling in the ankles, Chest pain and Increased palpitations (irregular heartbeat) Follow Up Care Test Results: Test results from this visit will be discussed in further detail at your follow- up appointment, if applicable. Discharge Plan Admission Admit Date/Time: 01/18/23 15:07 Attending Provider: Gerber Moreno Primary Care Provider: Taty Julian Consulting Providers: Taty Kong Instructions Additional Instructions / Restrictions: Follow-up with your PCP in 3 to 5 days to monitor hemoglobin as an outpatient. Discharge Orders/Prescriptions Prescriptions: New nadolol 40 mg Tablet 40 mg PO DAILY Qty: 30 0RF nystatin 100,000 unit/mL Suspension 500,000 unit PO 4X/DAY 3 Days Qty: 60 0RF cefdinir 300 mg capsule 300 mg PO BID 2 Days Qty: 4 0RF Continued rizatriptan 10 MG tablet 10 mg PO PRN PRN (Reason: Migraine Headache) Rx Instructions: 1 tab at onset of headache, may repeat in 2 hours levothyroxine 50 MCG tablet 75 mcg PO DAILY topiramate 100 MG tablet 100 mg PO DAILY fexofenadine 180 mg Tablet 180 mg PO DAILY allopurinol 100 mg Tablet 100 mg PO BID pantoprazole 40 mg tablet,delayed release (DR/EC) 40 mg PO DAILY Label Comments: TAKE 1 TABLET BY MOUTH ONCE DAILY metformin 1,000 mg tablet 1,000 mg PO BID glimepiride 4 mg Tablet 4 mg PO DAILY gabapentin 400 mg Tablet 800 mg PO QHS Emgality Pen 120 mg/mL Pen Injector 120 mg SUBCUT QMONTH Trulicity 3 mg/0.5 mL Pen Injector 3 mg SUBCUT QWEEK erythromycin 5 mg/gram (0.5 %) ointment 1 applic ophthalmic (eye) QHS Label Comments: APPLY TO BOTH EYES NIGHTLY fluorometholone 0.1 % drops,suspension 1 drp ophthalmic (eye) BID Label Comments: 1 drop into both eyes twice a day INSTILL 1 DROP INTO EACH EYE TWICE DAILY Hair,Skin and Nails Tablet 1 tab PO DAILY Acidophilus Capsule 10 mg PO DAILY cranberry 500 mg Capsule 500 mg PO BID Rx Instructions: administer with meals cyclosporine [Restasis] 0.05 % dropperette 1 drp ophthalmic (eye) BID Label Comments: INSTILL 1 DROP INTO EACH EYE TWICE DAILY wdnwotgpreio-Yn-jjcs-minerals 18-0.4 mg Tablet 2 tab PO DAILY PreserVision AREDS-2 250-90-40-1 mg Capsule 2 tab PO BID magnesium 200 mg Tablet 200 mg PO DAILY coenzyme Q10 [Co Q-10] 200 mg Capsule 200 mg PO DAILY apple cider vinegar 300 mg Tablet 300 mg PO DAILY Sambucus Elderberry 30-1.1-25 mg Tablet,Chewable 1 tab PO DAILY ezetimibe 10 mg tablet 10 mg PO DAILY Label Comments: TAKE 1 TABLET BY MOUTH ONCE DAILY Referrals / Follow Up: Taty Julian MD [Primary Care Provider] - Within 1 Week FriendToño DO [Med Staff - Active Staff] - Within 3 Months Disposition Disposition (needs filled in before D/C Order can be placed): Home, Self Care 01/21/23 1604<Electronically signed by Gerber Moreno MD>Gerber Moreno MD CC: Dr. Taty Julian MD; Dr. Taty Kong DO ~ Signed [facility] Work Phone: Evaluation note* Diagnosis Back problem Other unspecified back disorder Eye problem Other eye problems Right foot pain Pain in soft tissues of limb Plantar fasciitis, left Swelling Localized superficial swelling, mass, or lump Thyroid condition Unspecified disorder of thyroid [facility] Plantar fasciitis- Primary Plantar fascial fibromatosis [facility] Diagnosis Plantar fasciitis- Primary Plantar fascial fibromatosis Right foot pain Pain in soft tissues of limb Diabetic polyneuropathy associated with type 2 diabetes mellitus (HCC) Gout of right foot due to renal impairment, unspecified chronicity [facility] Diagnosis Plantar fasciitis- Primary Plantar fascial fibromatosis Right foot pain Pain in soft tissues of limb Diabetic polyneuropathy associated with type 2 diabetes mellitus (HCC) Gout of right foot due to renal impairment, unspecified chronicity 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 [facility] Plantar fasciitis- Primary Plantar fascial fibromatosis Right foot pain Pain in soft tissues of limb Diabetic polyneuropathy associated with type 2 diabetes mellitus (HCC) Gout of right foot due to renal impairment, unspecified chronicity 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 [facility] Plantar fasciitis- Primary Plantar fascial fibromatosis Right foot pain Pain in soft tissues of limb [facility] Diagnosis Plantar fasciitis- Primary Plantar fascial fibromatosis Gout of right foot due to renal impairment, unspecified chronicity [facility] Diagnosis Plantar fasciitis- Primary Plantar fascial fibromatosis [facility] Diagnosis Ankle pain- Primary Pain in joint, ankle and foot Pain Generalized pain 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 [facility] Diagnosis Gout of right foot due to renal impairment, unspecified chronicity [facility] Diagnosis 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- Primary [facility]* Diagnosis Type 2 diabetes mellitus without complication, without long-term current use of insulin (HCC)- Primary Globus sensation Gastrointestinal malfunction arising from mental factors Screening for colon cancer Special screening for malignant neoplasms, colon Hypothyroidism, unspecified type Gout, unspecified cause, unspecified chronicity, unspecified site Medication monitoring encounter Encounter for therapeutic drug monitoring Mucous cyst of digit of left hand documented in this encounter [facility] note* Diagnosis History of colonic polyps- Primary Personal history of colonic polyps Screening for colon cancer Special screening for malignant neoplasms, colon documented in this encounter [facility] note* Diagnosis Plantar fasciitis, left- Primary Plantar fascial fibromatosis of right foot [facility] Diagnosis Closed displaced fracture of fifth metatarsal bone of left foot, initial encounter- Primary Left foot pain Pain in soft tissues of limb Type 2 diabetes mellitus with diabetic neuropathy, with long-term current use of insulin (HCC) Plantar fascial fibromatosis of both feet Left foot pain Pain in soft tissues of limb Metatarsal fracture Closed fracture of metatarsal bone(s) Plantar fasciitis, left [facility] Diagnosis Closed displaced fracture of fifth metatarsal bone of left foot, initial encounter- Primary Left foot pain Pain in soft tissues of limb Type 2 diabetes mellitus with diabetic neuropathy, with long-term current use of insulin (HCC) Plantar fascial fibromatosis of both feet Left foot pain Pain in soft tissues of limb Metatarsal fracture Closed fracture of metatarsal bone(s) Plantar fasciitis, left Left foot pain Pain in soft tissues of limb Closed displaced fracture of fifth metatarsal bone of left foot, initial encounter Plantar fascial fibromatosis of both feet documented in this encounter [facility] note* Diagnosis Left foot pain Pain in soft tissues of limb Metatarsal fracture Closed fracture of metatarsal bone(s) Plantar fasciitis, left Closed displaced fracture of fifth metatarsal bone of left foot, initial encounter- Primary Left foot pain Pain in soft tissues of limb Plantar fascial fibromatosis of both feet Left foot pain Pain in soft tissues of limb Closed displaced fracture of fifth metatarsal bone of left foot, initial encounter Plantar fascial fibromatosis of both feet documented in this encounter [facility] note* Diagnosis Closed displaced fracture of fifth metatarsal bone of left foot, initial encounter- Primary documented in this encounter [facility] note* Diagnosis Thrombocytopenia (HCC)- Primary Thrombocytopenia, unspecified documented in this encounter [facility] note* Diagnosis History of colon polyps- Primary Personal history of colonic polyps Encounter for screening colonoscopy Special screening for malignant neoplasms, colon documented in this encounter [facility] note* Diagnosis Postoperative state- Primary Other postprocedural status Closed displaced fracture of fifth metatarsal bone of left foot with routine healing, subsequent encounter documented in this encounter [facility] note* Diagnosis Closed displaced fracture of fifth metatarsal bone of left foot, initial encounter- Primary documented in this encounter [facility] note* Diagnosis Encounter for screening colonoscopy- Primary Special screening for malignant neoplasms, colon documented in this encounter [facility] note* Diagnosis Type 2 diabetes mellitus without complication, without long-term current use of insulin (HCC)- Primary documented in this encounter [facility] note* Diagnosis Type 2 diabetes mellitus without complication, without long-term current use of insulin (HCC)- Primary Hypothyroidism, unspecified type Hyperlipidemia, mixed Mixed hyperlipidemia Elevated LFTs Other abnormal blood chemistry Anemia, unspecified type Gout, unspecified cause, unspecified chronicity, unspecified site Choking episode Other symptoms involving head and neck Epigastric pain Abdominal pain, epigastric Cough Globus sensation Gastrointestinal malfunction arising from mental factors Intractable migraine without aura and without status migrainosus Migraine without aura, with intractable migraine, so stated, without mention of status migrainosus documented in this encounter [facility] note* Diagnosis Type 2 diabetes mellitus without complication, without long-term current use of insulin (HCC)- Primary Hyperlipidemia, mixed Mixed hyperlipidemia documented in this encounter [facility] noteNo assessment information availableWPro[facility] Work Phone: evaluation [facility]* Diagnosis Onset Date Resolution Status Abnormal CT scan acute Cirrhosis acute GI (gastrointestinal bleed) acute Thrombocytopenia acute [facility] Work Phone: evaluation note* Diagnosis Gastrointestinal hemorrhage with hematemesis- Primary documented in this encounter [facility] note* Diagnosis 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 documented in this encounter [facility] note* Diagnosis Type 2 diabetes mellitus without complication, without long-term current use of insulin ([facility]) documented in this encounter [facility] note* Diagnosis 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- Primary documented in this encounter [facility] note* Diagnosis Encounter for screening mammogram for breast cancer documented in this encounter [facility] note* Diagnosis Onset Date Resolution Status Abnormal CT scan acute GI (gastrointestinal bleed) acute Thrombocytopenia acute Cirrhosis chronic Cirrhosis chronic [facility] Work Phone: evaluation note* Diagnosis 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 documented in this encounter [facility] note* Diagnosis Type 2 diabetes mellitus without complication, without long-term current use of insulin (HCC)- Primary Hypothyroidism, unspecified type Hyperlipidemia, mixed Mixed hyperlipidemia Gout, unspecified cause, unspecified chronicity, unspecified site Anemia, unspecified type Disorder involving thrombocytopenia (HCC) Hepatic cirrhosis, unspecified hepatic cirrhosis type, unspecified whether ascites present (HCC) Gastrointestinal hemorrhage with hematemesis Intractable migraine without aura and without status migrainosus Migraine without aura, with intractable migraine, so stated, without mention of status migrainosus Globus sensation Gastrointestinal malfunction arising from mental factors Need for vaccination Need for prophylactic vaccination and inoculation against unspecified single disease documented in this encounter [facility] note* Diagnosis Onset Date Resolution Status Cirrhosis chronic GI (gastrointestinal bleed) acute Thrombocytopenia acute Cirrhosis chronic [facility] Work Phone: Evaluation note* Diagnosis Onset Date Resolution Status GI (gastrointestinal bleed) acute Thrombocytopenia acute Cirrhosis [facility] Work Phone: Evaluation note* Diagnosis Peroneal tendonitis of right lower extremity- Primary Acute right ankle pain Arthritis of subtalar joint documented in this encounter [facility] note* Diagnosis Peroneal tendonitis of right lower extremity- Primary Acute right ankle pain Arthritis of subtalar joint documented in this encounter [facility] note* Diagnosis Type 2 diabetes mellitus without complication, without long-term current use of insulin (HCC)- Primary Hypothyroidism, unspecified type Cough Globus sensation Gastrointestinal malfunction arising from mental factors Hyperlipidemia, mixed Mixed hyperlipidemia Urinary frequency Esophageal varices without bleeding, unspecified esophageal varices type (HCC) Disorder involving thrombocytopenia (HCC) Recurrent UTI (urinary tract infection) Urinary tract infection, site not specified Gout, unspecified cause, unspecified chronicity, unspecified site documented in this encounter [facility] note* Diagnosis Onset Date Resolution Status Cirrhosis chronic Esophageal varices chronic GI (gastrointestinal bleed) chronic Cirrhosis chronic Esophageal varices chronic GI (gastrointestinal bleed) [facility] Work Phone: evaluation note* Diagnosis Onset Date Resolution Status Cirrhosis chronic Esophageal varices chronic GI (gastrointestinal bleed) [facility] Work Phone: Evaluation note* Diagnosis Migraine with aura and without status migrainosus, not intractable- Primary Primary insomnia Persistent disorder of initiating or maintaining sleep documented in this encounter [facility] note* Diagnosis Encounter for screening mammogram for breast cancer documented in this encounter [facility] note* Diagnosis Type 2 diabetes mellitus without complication, without long-term current use of insulin (HCC)- Primary Hypothyroidism, unspecified type Hyperlipidemia, mixed Mixed hyperlipidemia Gout, unspecified cause, unspecified chronicity, unspecified site Intractable migraine without aura and without status migrainosus Migraine without aura, with intractable migraine, so stated, without mention of status migrainosus Anemia, unspecified type Elevated LFTs Other abnormal blood chemistry Screening for depression Encounter for screening examination for other mental health and behavioral disorders documented in this encounter [facility] note* Diagnosis 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- Primary documented in this encounter [facility] note* Diagnosis Encounter for screening mammogram for breast cancer documented in this encounter [facility] note* Diagnosis Abnormal mammogram- Primary Abnormal mammogram, unspecified documented in this encounter [facility] note* Diagnosis Abnormal mammogram Abnormal mammogram, unspecified documented in this encounter [facility] note* Diagnosis Cough documented in this encounter [facility] note* Diagnosis Type 2 diabetes mellitus without complication, without long-term current use of insulin (HCC)- Primary Hypothyroidism, unspecified type Hyperlipidemia, mixed Mixed hyperlipidemia Gout, unspecified cause, unspecified chronicity, unspecified site Intractable migraine without aura and without status migrainosus Migraine without aura, with intractable migraine, so stated, without mention of status migrainosus Anemia, unspecified type Elevated LFTs Other abnormal blood chemistry Esophageal varices without bleeding, unspecified esophageal varices type (HCC) Globus sensation Gastrointestinal malfunction arising from mental factors Hepatic cirrhosis, unspecified hepatic cirrhosis type, unspecified whether ascites present (HCC) documented in this encounter [facility] note* Diagnosis Type 2 diabetes mellitus without complication, without long-term current use of insulin (HCC) Hyperlipidemia, mixed Mixed hyperlipidemia documented in this encounter [facility] note* Diagnosis Migraine with aura and without status migrainosus, not intractable- Primary Primary insomnia Persistent disorder of initiating or maintaining sleep documented in this encounter [facility] note* Diagnosis Encounter for gynecological examination (general) (routine) without abnormal findings- Primary Screening for cervical cancer Screening for malignant neoplasm of the cervix Encounter for screening mammogram for breast cancer Adnexal fullness Other specified symptom associated with female genital organs Cirrhosis of liver without ascites, unspecified hepatic cirrhosis type (HCC) documented in this encounter [facility] note* Diagnosis Adnexal fullness Other specified symptom associated with female genital organs documented in this encounter [facility] note* Diagnosis Type 2 diabetes mellitus without complication, without long-term current use of insulin (HCC)- Primary documented in this encounter [facility] note* Diagnosis Spondylosis without myelopathy or radiculopathy, 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, lumbar region documented in this encounter [facility] Work Phone: Evaluation note* Diagnosis Segmental and somatic dysfunction of cervical region Segmental and somatic dysfunction of lumbar region documented in this encounter [facility] Work Phone: Evaluation note* Diagnosis Segmental and somatic dysfunction of thoracic region Spondylosis without myelopathy or radiculopathy, thoracic region Pain in thoracic spine documented in this encounter [facility] Work Phone: Evaluation note* Diagnosis Closed displaced fracture of fifth metatarsal bone of left foot, initial encounter Type 2 diabetes mellitus with diabetic neuropathy, with long-term current use of insulin (HCC) Thyroid condition Unspecified disorder of thyroid Gastroesophageal reflux disease, unspecified whether esophagitis present Obesity (BMI 30-39.9) Pre-op examination Anemia, unspecified type Diabetic polyneuropathy associated with type 2 diabetes mellitus (HCC)- Primary 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 [facility] Encounter for gynecological examination (general) (routine) without abnormal findings Encounter for screening mammogram for breast cancer [facility] Diagnosis Closed displaced fracture of fifth metatarsal bone of left foot, initial encounter Type 2 diabetes mellitus with diabetic neuropathy, with long-term current use of insulin (HCC) Thyroid condition Unspecified disorder of thyroid Gastroesophageal reflux disease, unspecified whether esophagitis present Obesity (BMI 30-39.9) Pre-op examination Anemia, unspecified type Numbness- Primary Disturbance of skin sensation Diabetic polyneuropathy associated with type 2 diabetes mellitus (HCC) [facility] Diagnosis Closed displaced fracture of fifth metatarsal bone of left foot, initial encounter Type 2 diabetes mellitus with diabetic neuropathy, with long-term current use of insulin (HCC) Thyroid condition Unspecified disorder of thyroid Gastroesophageal reflux disease, unspecified whether esophagitis present Obesity (BMI 30-39.9) Pre-op examination Anemia, unspecified type Diabetic polyneuropathy associated with type 2 diabetes mellitus (HCC)- Primary History of removal of retained hardware [facility] Diagnosis Closed displaced fracture of fifth metatarsal bone of left foot, initial encounter Type 2 diabetes mellitus with diabetic neuropathy, with long-term current use of insulin (HCC) Thyroid condition Unspecified disorder of thyroid Gastroesophageal reflux disease, unspecified whether esophagitis present Obesity (BMI 30-39.9) Pre-op examination Anemia, unspecified type History of removal of retained hardware- Primary [facility] Diagnosis Closed displaced fracture of fifth metatarsal bone of left foot, initial encounter Type 2 diabetes mellitus with diabetic neuropathy, with long-term current use of insulin (HCC) Thyroid condition Unspecified disorder of thyroid Gastroesophageal reflux disease, unspecified whether esophagitis present Obesity (BMI 30-39.9) Pre-op examination Anemia, unspecified type History of removal of retained hardware- Primary History of removal of retained hardware [facility] Author Toño Curtis [facility] April 08, 2023 7:05am Note Date/Time April 08, 2023 7:05 am [facility] Medical Records Department [address] [place] [address] History & Physical Exam 04/08/23 0705 MR#: [id number] Acct: [id number] Name: KRISTA CAMPBELL CANDIDO Rep #:[id number] : 1955 67 From: Toño Curtis DO PCP: Dr. Taty Julian MD Status:[facility] Location: [place] [address] History and Physical Date of Admission: 04/08/23 67 F who presents to the office today for f/u hospitalization at [facility] 01/18/23- 01/21/23 for upper GI bleed. Accompanied by and daughter; daughter is RN at [employer] in [place] so she is well-versed re cirrhosis. She had presented to ED with hematemesis. Hgb was as low as 6.9 during hospitalization, it was 8.6 at discharge. Received 1 unit PRBC. EGD revealed bleeding esophageal varices as well as 3 bleeding angiodysplastic lesions in the stomach. She received a new diagnosis of cirrhosis--both CT and MRI findings were consistent with cirrhotic liver. She is thrombocytopenic. CT and MR showed duodenal lesion.Dr Curtis didn't see a mass, just a duodenal ulcer. Pt reports acidic stomach despite pantoprazole 40 mg which she has been on for about 10 yrs, feels like acid isn't draining, gets nausea. Taking lactulose once a day because it gives her diarrhea. Previously her normalwas BM every 3-4 days. Dark stools, she thinks from iron. 03/03/23 labs at [facility]: hgb 12.9, iron 55, ferritin 32, hbg a1c 5.6. She was discharged on nadolol but rx ran out. No ascites so not on diuretics. says some mild forgetfulness. Sleep is good. Feels tired. Jaundice no. Bleeding no. Pruritus no. 01/2023 AFP 2.6 normal 01/18/23 CT/Abdomen/Pelvis W IV Cont ONLY IMPRESSION:? (NOT LISTED IN ORDER OF SIGNIFICANCE) In the wall of the proximal duodenum, there is an enhancing nodule. This is 12 x 14mm. It is on the lateral wall. Se 2 IM: 40. Se601 IM: 46. This can be a mass or artifact from peristaltic contractions. However, given the patients history, recommend direct visualization with upper endoscopy. This area was underdistended on the prior study so a direct comparison cannot be obtained. There is hepatomegaly with diffuse hepatic enlargement. There is a diffuse contour abnormality of the liver consistent with cirrhotic changes. ? 01/21/23 MRI/MRI Abd WITH and W/O Contrast IMPRESSION: 1. Again noted is lateral wall second portion duodenum enhancing component/lesion measuring 1.5 cm similar to the prior CT exam. Overall appearance appears benign. Recommend GI consult for direct visualization and tissue sampling. 2. Heterogeneous liver parenchyma with nodular contour concerning for cirrhotic liver morphology, clinically correlate. Mild splenomegaly is present. No evidence of focal enhancing lesion. 01/19/23 EGD Impression: ? - Bleeding grade III esophageal varices. ? Incompletely eradicated. Banded. ? 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 Treated with a heater probe. ? - One non-bleeding duodenal ulcer with no ? stigmata of bleeding. ? - No specimens collected. ROS Const Constitutional: Positive for fatigue; No fever(s), frequent falls, headache(s), weakness or weight change ENT ENT: No headache(s) or difficulty swallowing Cardio Cardiology: No leg pain with exertion Gastro GI: Positive for abdominal pain, change in bowel habits, constipation, heartburnand nausea/dyspepsia; No bloating, diarrhea, difficulty swallowing, excessive flatus, Vomiting blood/hematemesis, Blood in stool or vomiting Musc Musculoskeletal: Positive for joint pain, back pain, joint swelling, stiffness and Arthritis; No muscle cramps, muscle weakness, numbness, tingling, sciatica, restless legs, leg pain at night or leg pain with exertion Skin Skin: No dry skin, lesions, itchy eyes or rash Neuro Neurology: No behavioral changes, unsteady gait/balance, weakness, frequent falls, headache(s), numbness, tingling, restless legs, tremor(s), Increased tonein limbs, paralysis or seizures Psych Psychiatric: No anxiety, No behavioral changes, No depression, No paranoia, No Compulsive Behavior, No hyperactivity, No inattentiveness, No obsessions/compulsions, No Temper Tantrums and No suicidal ideation Endo Endocrine: Positive for fatigue; No weight change Aller/Imm Allergy/Immunologic: No itchy eyes Candelario/Lymp Hematologic/Lymphatic: No easy bleeding or easy bruising Exam Const General: cooperative and comfortable Nutritional Appearance: obese Orientation: alert, awake and oriented x3 Eyes Sclera: sclerae normal Resp Effort & Inspection: normal respiratory effort GI Inspection: obesity Skin General: no jaundice Neuro Speech: speech normal Gait: normal gait Extrem General: pedal edema present Psych Mood: euthymic mood Quality Reporting Tobacco Screening ([facility] 138) Smoking Status: Former smoker Assessment and Plan Assessment and Plan (1) Cirrhosis: ?Status:?Chronic ?Plan: 67 yr old female with new diagnosis cirrhosis, recent UGIB I discussed the ?duodenal lesion seen on CT and MR with Dr Curtis, he recommendsrepeat CT 3 mos, if duod lesion still present then refer for EUS Have staff call her thursday to schedule EGD in one month I'll send portal msg with lab results Continue lactulose Res[facility], recommend low sodium diet Increase pantoprazole 40 mg to BID, see if acidic stomach and nausea resolve ? ? ? Orders: Orders Ammonia Today K74.60 - Unspecified cirrhosis of liver ? KILEY Comprehensive Panel Today K74.60 - Unspecified cirrhosis of liver ? ANCA Today K74.60 - Unspecified cirrhosis of liver ? Angiotensin Convert Enzyme Today K74.60 - Unspecified cirrhosis of liver ? Anti-Mitochondrial AB Today K74.60 - Unspecified cirrhosis of liver ? Anti-Smooth Muscle ABS Today K74.60 - Unspecified cirrhosis of liver ? Prothrombin Time w/INR Today K74.60 - Unspecified cirrhosis of liver, K92.2 - Gastrointestinal hemorrhage, unspecified ? Erythrocyte Sed Rate Today K74.60 - Unspecified cirrhosis of liver ? CRP Today K74.60 - Unspecified cirrhosis of liver ? Copper, Serum or Plasma Today K74.60 - Unspecified cirrhosis of liver ? Ceruloplasmin Today K74.60 - Unspecified cirrhosis of liver ? Hepatitis Panel Acute Today K74.60 - Unspecified cirrhosis of liver ? HIV - [facility] Today D69.6 - Thrombocytopenia, unspecified, K74.60 - Unspecified cirrhosis of liver ? LDH Today K74.60 - Unspecified cirrhosis of liver ? Haptoglobin Today K74.60 - Unspecified cirrhosis of liver ? Hepatitis B Surface Antibody Today K74.60 - Unspecified cirrhosis of liver ? Comprehensive Metabolic Profil Today K74.60 - Unspecified cirrhosis of liver ? CBC W/Diff, Automated Today K74.60 - Unspecified cirrhosis of liver, K92.2 - Gastrointestinal hemorrhage, unspecified ? IgG Subclasses Today K74.60 - Unspecified cirrhosis of liver ? Medications: Changed From pantoprazole 40 mg? PO DAILY health maintenance ? ? To pantoprazole 40 mg? PO BID 180 tabs 0RF ? ? Refilled nadolol 40 mg? PO DAILY 90 tabs 3RF ? ? I have examined the patient and the H&P has been reviewed. There are no clinicalchanges since date of exam. 04/08/23 0705 <Electronically signed by Toño Curtis DO> Cosigner Signature (if applicable): CC: Dr. Taty Julian MD; Toño Curtis DO~ Signed [facility] Work Phone: History and physical note Author Toño Curtis [facility] August 10, 2023 6:59am Note Date/Time August 10, 2023 6 :59am [facility] Medical Records Department [address] [place] [id number] History & Physical Exam 08/10/23 0658 MR#: [id number] Acct: [id number] Name: KRISTA CAMPBELL Rep #:[id number] : 1955 68 From: Toño Friend DO PCP: Dr. Taty Julian MD Status:[facility] Location: [place] [address] History and Physical Date of Admission: 08/10/23 KRISTA CAMPBELL, is a 67 F who presents to the office today for *[facility] hospitalization .12.11-01.21.23 for upper GIB with hematemesis with nausea and weakness. GI consulted 01.19.23. ? CT abd/pel 01.18.23 hepatomegaly with cirrhotic changes; stool throughout colon; enhancing nodule of duodenum [id number]. ? EGD 01.19.23 five columns oozing grade III varices upper/middle/lower esophagus, banded; three bleeding AVM in stomach; one non-bleeding duodenal ulcer. No specimens collected ? MRI 01.21.23 cirrhotic liver with splenomegaly; duodenal enhancement measuring 1.5cm. OV 6.2.23 with acidic stomach for which she has used PPI for 10 years. With lactulose BM daily, loose. reports forgetfulness. Denies sleep disturbance, jaundice, bleeding, pruritis. ? US 6.15.23 without ascites. EGD 23 Grade II varices of middle/lower third esophagus, banded; small hiatal hernia; erythema with bleeding on lesser curvature of stomach, gastritis;5mm mucosal polypoid OV 7.10.23 with improvement of nausea frequency. She did reduce lactulose QD with 2-3 BM/day. Confusion/brain fog has improved per . Notes increased cough with liquids but not consistently. Continues with nadolol and PPI ROS Const Constitutional: Positive for fatigue; No fever(s), frequent falls, headache(s), weakness or weight change ENT ENT: No headache(s) or difficulty swallowing Cardio Cardiology: No leg pain with exertion Gastro GI: Positive for heartburn; No bloating, diarrhea, difficulty swallowing, excessive flatus, Vomiting blood/hematemesis, Blood in stool or vomiting Musc Musculoskeletal: Positive for joint pain, back pain, joint swelling, stiffness and Arthritis; No muscle cramps, muscle weakness, numbness, tingling, sciatica, restless legs, leg pain at night or leg pain with exertion Skin Skin: No dry skin, lesions, itchy eyes or rash Neuro Neurology: No behavioral changes, unsteady gait/balance, weakness, frequent falls, headache(s), numbness, tingling, restless legs, tremor(s), Increased tonein limbs, paralysis or seizures Psych Psychiatric: No anxiety, No behavioral changes, No depression, No paranoia, No Compulsive Behavior, No hyperactivity, No inattentiveness, No obsessions/compulsions, No Temper Tantrums and No suicidal ideation Endo Endocrine: Positive for fatigue; No weight change Aller/Imm Allergy/Immunologic: No itchy eyes Candelario/Lymp Hematologic/Lymphatic: No easy bleeding or easy bruising Exam Const General: cooperative and comfortable Nutritional Appearance: obese Orientation: alert, awake and oriented x3 Eyes Sclera: sclerae normal Resp Effort & Inspection: normal respiratory effort GI Inspection: obesity Skin General: no jaundice Neuro Speech: speech normal Gait: normal gait Extrem General: pedal edema present Psych Mood: euthymic mood Quality Reporting Tobacco Screening ([facility] 138) Smoking Status: Former smoker Assessment and Plan Assessment and Plan (1) Cirrhosis: Status: Chronic Plan: 67-year-old with nonalcoholic steatohepatitis and cirrhosis with a meld of 8/Child-Rosas class a complicated by upper GI bleed secondary to grade 3 through 4 esophageal varices. She underwent esophageal banding with incomplete removal of all her varices. In the hospital she was started on nadolol 10 mg twice daily and was titrated up to 20 mg twice daily. She is not having any side effects from the nadolol. She is on 20 cc a lactulose twice a day and is maintaining good mentation and is not having any signs or symptoms of hepatic encephalopathy. Her disease is also complicated by thrombocytopenia, anemia, ascites, lower extremity edema and itching. She will get MELD labs again today. She will also need alpha-fetoprotein, surveillance upper endoscopy to eradicate all of her varices. She may need a capsule endoscopy in the future. Her hemoglobin has increased from 6.9 all backup to 12 after bleeding was stopped. She is actually doing very well. Continuecurrent medications. (2) Thrombocytopenia: Status: Acute Plan: Last platelet count was 71,000. Her platelet count ranges from 60,00 to 90,000 usually. (3) GI (gastrointestinal bleed): Status: Acute Plan: She has not shown any signs or symptoms of GI bleeding at this time. Orders: Orders Ammonia Today K74.60 - Unspecified cirrhosis of liver Comprehensive Metabolic Profil Today K74.60 - Unspecified cirrhosis of liver LDH Today K74.60 - Unspecified cirrhosis of liver Albumin, Serum Today K74.60 - Unspecified cirrhosis of liver CRP Today K74.60 - Unspecified cirrhosis of liver Prothrombin Time w/INR Today K74.60 - Unspecified cirrhosis of liver, K92.2 - Gastrointestinal hemorrhage, unspecified CBC W/Diff, Automated Today K74.60 - Unspecified cirrhosis of liver, K92.2 - Gastrointestinal hemorrhage, unspecified Erythrocyte Sed Rate Today K74.60 - Unspecified cirrhosis of liver I have examined the patient and the H&P has been reviewed. There are no clinicalchanges since date of exam. 08/10/23 0659 <Electronically signed by Toño Curtis DO> Cosigner Signature (if applicable): CC: Dr. Taty Julian MD; Toño Curtis DO~ Signed [facility] Work Phone: History and physical note Author Toño Curtis [facility] Note Date/Time February 27, 2025 6:45a m [facility] Medical Records Department [address] [place] [id number] History & Physical Exam 02/27/25 0641 MR#: [id number] Acct: [id number] Name: KRISTA CAMPBELL Rep #:[id number] : 1955 69 From: Toño Curtis DO PCP: Dr. Taty Julian MD Status:[facility] Location: [place] [address] HPI - General General Date of Admission: 02/27/25 Date of Service: 02/27/25 Chief Complaint: dysphagia HPI Narrative KRISTA CAMPBELL, is a 69 F who presents for the evaluation of dysphagia *[facility] hospitalization 4.2.23-4.5.23 for upper GIB with hematemesis with nausea and weakness. GI consulted 4.3.23. CT abd/pel 01.18.23 hepatomegaly with cirrhotic changes; stool throughout colon; enhancing nodule of duodenum [id number]. EGD 01.19.23 five columns oozing grade III varices upper/middle/lower esophagus, banded; three bleeding AVM in stomach; one non-bleeding duodenal ulcer. No specimens collected MRI 01.21.23 cirrhotic liver with splenomegaly; duodenal enhancement measuring 1.5cm. OV 6.12.11 with acidic stomach for which she has used PPI for 10 years. With lactulose BM daily, loose. reports forgetfulness. Denies sleep disturbance, jaundice, bleeding, pruritis. US 6.15. without ascites. EGD 04.08.2323 Grade II varices of middle/lower third esophagus, banded; small hiatal hernia; erythema with bleeding on lesser curvature of stomach, gastritis;5mm mucosal polypoid OV 7.08.10 with improvement of nausea frequency. She did reduce lactulose QD with 2-3 BM/day. Confusion/brain fog has improved per . Notes increased cough with liquids but not consistently. Continues with nadolol and PPI EGD 08.10.23- Grade II esophageal varices, incompletely eradicated. Banded; small amount of food in stomach. No specimines collected. OV 11.23- Pt is doing well since last visit. Reports intermittent postprandial RUQ pain and nausea. Takes Lactulose QD with 2-3 complete BM a day.Denied any edema, confusion/ brain fog or issues with sleep. Continues PPI with minimal heartburn. MELD Na score is 8. C/o mild upper quadrant abdominal pain adjacent with the food on lactulose but lactulose makes her more nauseous but novomiting, burping and gaseous feeling. OV 2.14.24- Nausea, indigestion, and upper mid to LUQ abdomen abdominal pain after eating certain foods in the evening, attempting keep away from triggers. She states that food stays longer with burping and air/gas. Occasional Tums PRNwith success. Nausea after taking lactulose improved. Loose stool about once daily. She takes lactulose 30 mL once daily. Mild swelling in feet. Gabapentin prescribed by neurologist effective sleep aide. Denies confusion, brain fog and BLE edema. Received correspondence from medical insurance prior auth needed Xifaxan through [employer]. CT abd/pel w/wo 12.16.23- Hepatomegaly and diffuse fatty infiltration of the liver Gastric emptying study 02.17.24- Abnormal, 102.96 mins 5.24 MELD na- 7 OV 03.07.24- Pt well since last visit. Continues to have nausea and RUQ abdominal discomfort/pressure like fist pressing. States she takes Lactulose once a day and BM are normal. She was able to get the Xifaxan. Denies dizziness,weakness, confusion, and swelling. 06.07.24- MELDNa, 8 07.06.24 EGD, grade II esophageal varices. Completely eradicated. Banded. Non-bleeding gastric ulcer with no stigma of bleeding. Biopsied. Portal hypertensivegastropathy. No gross lesions in the first portion of the duodenum. Lesser curvature ulcer biopsy, negative H.Pylori. Chronic ulcer with gastritis. Continue pantoprazole 40 mg BID, start Carafate TID x 8 weeks. OV 07.15.24- Since recent EGD, difficulty swallowing and chest heaviness. Nauseaand heartburn before or after meals. No acute concerns. Denies dizziness, weakness, confusion or swelling. Need refill of iron tabs. Patient taking PPI twice daily and sucralfate 09.20.24MELD na 6, Barium swallow 07.25.24 OV 09.28.24 Pt here for f/u and reports trouble swallowing. Dysphagia with solid food/liquid food and 1 time gummy was stuck in the throat. And denies anyedema, confusion/brain fog or sleep issues. Continues taking pantoprazole, lactulose, and Xifaxan daily. EGD 11.09.24- - Grade II esophageal varices. Incompletely eradicated. Banded. - Portal hypertensive gastropathy. - Chronic duodenitis. Biopsied. no pathologic diagnosis. RUQ Liver US; Elastography 10.14.24- liver measures 16.8 cm. increased echogenicity consistent with fatty infiltration. Median liver stiffness [id number] kPa F2-F3 Metavir score. LUQ ABD US- Mild splenomegaly, spleen measures 13.3 cm x 5.2 cm x 6.3 cm. Labs 3.8.25- INR 1.0. Sod 138. Creatinine 0.65. Bili 0.33. MELD 6 OV 3.25- Fatigued. D/C from speech therapy with some improvement in swallowing. Was given exercises to continue at home. Continued occasional heartburn, pantoprazole 40 BID and diet changes helpful. Occ brief episodes nausea, crackers or sprite helpful. Continued RUQ pain unchanged. . [facility] Medical History Back pain Wears glasses Thyroid disease Gout Arthritis Anemia High cholesterol History of GI bleed History of diverticulitis Gastric reflux Former smoker History of edema History of echocardiogram History of stress test Hypertension Diabetes Migraines Home Medications ?Medication ?Instructions ?Recorded ?Last Taken ?Type rizatriptan 10 mg tablet 10 mg PO PRN PRN Migraine He adache 12/28/13 Unknown History Lactobacillus acidophilus 10 mg PO DAILY Check with pr imary 01/18/23 02/19/25 History (Acidophilus capsule) doctor allopurinol 100 mg tablet 100 mg PO DAILY Check with p rimary 01/18/23 02/26/25 History doctor cyclosporine 0.05 % eye drops in a 1 drp ophthalmic (e ye) BID health 01/18/23 02/26/25 History dropperette (Restasis) maintenance erythromycin 5 mg/gram (0.5 %) eye 1 applic ophthalmic (eye) QHS 01/18/23 02/26/25 History ointment health maintenance ezetimibe 10 mg tablet 10 mg PO DAILY Check with pr imary 01/18/23 02/26/25 History doctor fluorometholone 0.1 % eye 1 drp ophthalmic (eye) BID h ealth 01/18/23 02/26/25 History drops,suspension maintenance gabapentin 400 mg tablet 800 mg PO QHS health mainten ance 01/18/23 02/26/25 Hist ory galcanezumab-gnlm 120 mg/mL 120 mg subcut QMONTH Check with 01/18/23 02/24/25 History subcutaneous pen injector primary doctor (Emgality Pen) metformin 1,000 mg tablet 1,000 mg PO BID diabetic 12/1111/08/24 History multivitamin with minerals 2 tab PO DAILY Check with p rimary 01/18/23 02/19/25 History (Hair,Skin and Nails tablet) doctor pysvxbkacszd-Zw-inam-minerals 18 2 tab PO DAILY health maintenance 01/18/23 02/19/25 History mg-0.4 mg tablet vit C 250 mg-vit E 90 mg-zinc 40 1 tab PO BID Check wi th primary 01/18/23 Unknown History mg-copper 1 uy-catfsg-pfgblm doctor capsule (PreserVision AREDS-2) magnesium 200 mg tablet 200 mg PO DAILY Check with p rimary 07/04/24 02/19/25 History doctor lactulose 20 gram/30 mL oral 20 g PO QDAY 07/15/2409/12 History solution spironolactone 25 mg tablet 25 mg PO DAILY 1 month #30 tabs 07/15/24 02/26/25 Rx rifaximin 550 mg tablet (Xifaxan) 550 mg PO BID 30 day s #60 tabs 09/28/24 02/26/25 Rx ascorbic acid (vitamin C) 500 mg 500 mg PO BID 1 month #60 tabs 12/29/24 02/19/25 Rx chewable tablet dulaglutide 3 mg/0.5 mL 4.5 mg subcut TH Check with 12/29/24 02/09/25 History subcutaneous pen injector primary doctor (Trulicity) elderberry fruit 350 mg capsule 700 mg PO QDAY 5 02/19/25 History ferrous sulfate 325 mg (65 mg 325 mg PO QDAY 1 month # 30 tabs 12/29/24 02/19/25 Rx iron) tablet levothyroxine 75 mcg tablet 75 mcg PO QDAY 1 month #30 tabs 12/29/24 02/27/25 Rx pantoprazole 40 mg tablet,delayed 40 mg PO QDAY 02/27/25 History release vit C 62.5 mg-vit D3 15 mcg-zinc 2 tab PO QDAY 5 02/19/25 History 2.75 mg-herbal no.358 chewable tablet ([employer]) carvedilol 6.25 mg tablet 6.25 mg PO BID 1 month #60 t abs 01/19/25 02/27/25 Rx Allergy/AdvReac Type Severity Reaction Status Date / Time ciprofloxacin (From Cipro) Allergy Other Verified 02/27/25 05:56 ciprofloxacin HCl (From Allergy Other Verified 02/27/25 05:56 Cipro) metronidazole Allergy Other Verified 02/27/25 05:56 Penicillins (PCN) Allergy Other Verified 02/27/25 05:56 Sulfa (Sulfonamide Allergy Rash Verified 02/27/25 05:56 Antibiotics) Uvdcxyr-IVL-LaW Reductase AdvReac Other Verified 02/27/25 05:56 Inhibitor Family History Grandfather Diabetes Grandmother Diabetes Father Heart problem Mother CVA (cerebral vascular accident) Surgical History History of esophagogastroduodenoscopy (EGD) Hx of esophagogastroduodenoscopy Hx of tonsillectomy History of Status post left foot surgery Social History Smoking Status: Never smoker alcohol intake: never substance use type: does not use ROS Constitutional Constitutional: Denies fatigue, fever(s), poor appetite, weight gain or weight loss Gastrointestinal Gastrointestinal: Denies belching, bloating, change in bowel habits, change in stool character, chewing difficulty, coffee ground emesis, constipation, cramping, diarrhea, dyspepsia, dysphagia, early satiety, excessive flatus, fecalincontinence, heartburn, hematemesis, hematochezia, hemorrhoids, loose stools, melena, nausea, odynophagia, rectal bleeding, tenesmus, vomiting or weight changes Vital Signs Vital Signs Vital Signs: 02/27/25 05:59 02/27/25 05:59 02/27/25 06:26 Temperature 97.7 F L 97.7 F L Temperature Source Temporal Pulse Rate 77 77 Respiratory Rate 18 18 Respiratory Pattern Normal Blood Pressure 102/65 102/65 Blood Pressure Mean 77 Blood Pressure Source Monitor Blood Pressure Position Semi-Fowlers Blood Pressure Location Left Arm Pulse Ox 98 98 Oxygen Delivery Method Room Air Room Air Weight Weight: 153 lb 10.595 oz Body Mass Index (BMI) 31.0 Physical Exam Const alert, oriented x3, no apparent distress and healthy appearing General Appearance: cooperative GI normal to inspection, nondistended, normoactive bowel sounds, soft to palpation,non-tender and non-distended Percussion: normal to percussion Rectal Exam: deferred Assessment & Plan Assessment/Plan (1) Dysphagia: (2) Gastroparesis: (3) Esophageal varices: QUALIFIERS: Esophageal varices type: secondary Esophageal varicesbleeding: without bleeding Qualified Code(s): I85.10 - Secondary esophageal varices without bleeding (4) Cirrhosis: (5) Thrombocytopenia: (6) GI (gastrointestinal bleed): PLAN: Assessment and Plan Assessment and Plan (1) Cirrhosis: Status: Chronic Plan: 67-year-old with nonalcoholic steatohepatitis decompensated cirrhosis with MELD sodium score 6 on December 24, 2024 class CTP A, 5 points. The patient had variceal bleed, grade 3 to grade had recent EGD in June 2024 which showed grade 2 esophageal varices completely eradicated, banded. Nonbleeding gastric ulcer. PHG. Negative for H. pylori. She is on pantoprazole 40 mg twice daily. Patient completed sucralfate. She takes lactulose 30 mill once daily. Labs reviewed from December 2024. Glucoseis 282. A1c in November was also elevated 6.9%. Her baseline nausea is only 6.1 to 6.5%. On metformin. Anemia of chronic disease and iron versus anemia. Hemoglobin dropped and she is pale, H&H 8.0/29.6%. Ferrous sulfate advised every other day along with vitamin C Last CT abdomen, triple phase, November 2023 and MRI abdomen/pelvis from January 2023 were reviewed. Cirrhotic changes but no specific mass reported. Borderline splenomegaly. Continue spironolactone 25 mg daily, carvedilol 6.25 mg twice daily. Ferrous sulfate increased to 325 mg every day along with vitamin C. Continue lactulose and Xifaxan Follow-up labs ordered in 4-month (2) Esophageal varices: Status: Chronic Qualifiers: Esophageal varices bleeding: without bleeding Esophageal varices type: secondary Qualified Code(s): I85.10 - Secondary esophageal varices without bleeding Plan: EGD reviewed with the patient along with a diagram. Discussed with Dr. Curtis. In EGD on 11/09/2024 Impressions : - Grade II esophageal varices. Incompletely eradicated. Banded. - Portal hypertensive gastropathy. - Chronic duodenitis. Biopsied. Recommendations : - Discharge patient to home. - Resume previous diet. - Continue present medications. - Await pathology results. - Repeat upper endoscopy in 4 months for surveillance. SCHEDULED ON 02/27/25 Pathology shows chronic duodenitis PPI changed from 40 mg twice daily to once daily probably over suppression of gastric acid therefore decreased absorption of ferrous sulfate (3) Dysphagia: Status: Chronic Plan: Patient has been cleared from the speech therapist and advised to do speech/swallow exercises at home Orders: Orders Stool Occult Blood iFOB 2 Weeks I85.10 - Secondary esophageal varices without bleeding, K92.2 - Gastrointestinal hemorrhage, unspecified Medications: New levothyroxine 75 mcg PO QDAY 1 month 30 tabs 3RF ascorbic acid (vitamin C) 500 mg PO BID 1 month 60 tabs 2RF Changed From ferrous sulfate 325 mg PO Q OTHER DAY 1 month 30 tabs 5RF To ferrous sulfate 325 mg PO QDAY 1 month 30 tabs 5RF From pantoprazole 40 mg PO BID To pantoprazole 40 mg PO QDAY Discontinued levothyroxine Discontinued Reason: Discontinued by PCP/other physicians 88 mcg PO DAILY 02/27/25 0645 <Electronically signed by Toño Curtis DO> Cosigner Signature (if applicable): CC: Dr. Taty Julian MD; Toño Curtis DO~ Signed [facility] Work Phone: History of Present illness NarrativePresents for annual exam. She voices no complaints and is doing well. Denies any bowel or bladder problems. Denies any breast problems. Denies any postmenopausal bleeding.[address] Work Phone: Hospital Discharge instructionsAdditional Instructions Return if you have a temperature greater than 100, shaking chills or pain is unbearable and unable to walk.[facility] Work Phone: Instructions* Attachments The following attachments cannot be sent through Care Everywhere. * Peroneal Tendon Strain: Rehab Exercises ([place]i) documented in this encounterOhioHealthInstructions* Attachments The following attachments cannot be sent through Care Everywhere. * Peroneal Tendon Strain: Rehab Exercises ([place]i) documented in this encounterOhioHealthProgress note Author Toño Curtis [facility] January 21, 2023 4:56pm Note Date/Time January 21, 2023 4:56 pm [facility] Medical Records Department [address] [place] [address] Progress Note 01/21/23 1655 MR#: [id number] Acct: [id number] Name: KRISTA CAMPBELL Rep #:[id number] : 1955 67 From: Toño Friend DO PCP: Dr. Taty Julian MD Status:AD M IN Location: [place] [address] Subjective Subjective Patient is doing well. I had a long talk with the patient and her significant other. She gave me the number of her daughter to call and I told her that I will call her and feel everything. Her name is Rabia rodriguez and her phone number is [phone]. Objective Data Objective Data Vital Signs: Vital Signs Temp Pulse Resp BP Pulse Ox O2 Del Method O2 Flow Rate 97.5 F L 67 18 106/59 L 95 Room Air 2 01/21/23 10:28 01/21/23 10:28 01/21/23 10:28 01/21/23 10:28 01/21/23 10:28 01/21/23 10:28 01/21/23 04:10 Oxygen Flow Rate (L/min) 2 Oxygen Delivery Method Room Air Weight: 167 lb 8.821 oz Body Mass Index (BMI) 33.8 Intake & Output: Intake and Output for Last 24 Hours 01/19/23 01/20/23 01/21/23 23:59 23:59 23:59 Intake Total 3948.65 / 3948.65 2677.66 / 2677.66 2916.46 / 2916.46 Balance 3948.65 / 3948.65 2677.66 / 2677.66 2916.46 / 2916.46 Lab / Micro Data Result Diagrams: 01/21/23 13:14 01/21/23 04:06 Labs: Laboratory Results - last 24 hr 01/20/23 16:28: POC Glucose 139 H 01/20/23 22:35: POC Glucose 190 H 01/21/23 04:06: WBC 5.7, RBC 2.73 L, Hgb 8.2 L, Hct 25.9 L, MCV 94.9, MCH 30.0, MCHC 31.7 L, RDW Std Deviation 50.6 H, RDW Coeff of Pete 15.4 H, Plt Count 82 L, MPV 11.2, Immature Gran % (Auto) 1.100 H, Neut % (Auto) 57.3, Lymph % (Auto) 31.3, [place] % (Auto) 7.0, Eos % (Auto) 2.8, Baso % (Auto) 0.5, Absolute Neuts (auto) 3.3, Absolute Lymphs (auto) 1.78, Nucleated RBC % 1.1 01/21/23 04:06: Sodium 138, Potassium 3.9, Chloride 109 H, Carbon Dioxide 23.0, Anion Gap 6, BUN 9, Creatinine 0.66, Estim Creat Clear Calc 65.50, Est GFR (MDRD) Af Amer 115, Est GFR (MDRD) Non-Af 95, BUN/Creatinine Ratio 13.7, [id number] H, Calcium 7.9 L, Total Bilirubin 0.30, AST 47 H, ALT 36, Alkaline Phosphatase 69, Total Protein 5.9 L, Albumin 3.0 L, Globulin 2.9, Albumin/Globulin Ratio 1.0 01/21/23 06:40: POC Glucose 173 H 01/21/23 12:14: POC Glucose 334 H 01/21/23 13:14: Hgb 8.6 L, Hct 26.6 L 01/21/23 13:48: APTT 27.7 Physical Exam Narrative General: Alert, Oriented x3, Cooperative, No apparent distress HEENT: Atraumatic, PERRLA, EOMI, Normocephalic Oral: Moist Mucosa Neck: Supple, No JVD Lungs: Diminished, Normal air movement, No rhonchi, No wheeze, No rales Cardiovascular: Regular rate, Regular Rhythm, Normal S1, Normal S2, No murmurs Abdomen: Soft, Non Tender, Non-Distended, No Hepato-splenomegaly Extremities: No edema, Capillary Refill Less than 3 Seconds Skin: No rashes, No breakdown Musculoskeletal: No Tenderness to Palpation of Joints or Extremities Neurological: Cranial nerves II-XII grossly intact, Motor Exam 5/5 strength throughout, Sensory exam intact to light touch and pain Psych/Mental Status: Normal Affect, Appropriate Assessment & Plan Assessment/Plan (1) GI (gastrointestinal bleed): PLAN: Plan 1. Upper GI bleed-possibly from esophageal varices versus angiodysplastic lesions/duodenal ulcer-there is no active bleeding seen at the patient's EGD today, patient will be given 1 unit of packed red blood cells due to hemoglobin of 6.9. I placed the patient on gentamicin and vancomycin, but I would switch to Rocephin. #2 acute blood loss anemia-secondary to upper GI bleed from varices and angiodysplastic lesions, patient was transfused 1 unit of packed red blood cells. Hemoglobin seems to be improved. #3 hypothyroidism-patient will remain on Synthroid #4 type 2 diabetes-patient is on sliding scale insulin per fingerstick blood sugars at this time and a clear liquid diet #5 chronic migraines-patient was given Fioricet today for headache, I will writefor every 6 hours as needed for headache Total clinical time spent by myself addressing the patient's medical issues, reviewing all of her data, and collaborating with patient's care team: 35 minutes Charges/Coding Visit Charges Inpatient E&M: 63893 Subs Hosp L3 01/21/23 1656 <Electronically signed by Toño Curtis DO> Toño Curtis DO Cosigner Signature (if applicable): CC: ~ Signed [facility] Work Phone: Reason for referral (narrative)* Outpatient Procedure (Routine) - Closed Specialty Diagnoses / Procedures Referred By Mita clarke Referred To Contact [facility] Diagnoses Encounter for screening colonoscopy Procedures COLONOSCOPY SCREENING COLONOSCOPY FLX DX W/COLLJ SPEC WHEN Nina Huff PA-C [address] [place] [address] [facility] [address] [address] Referral ID Status Reason Start Date Expiration Date V isits Requested Visits Authorized [id number] Closed Auto-Generate d Referral 06/17/2022 06/17/2023 1 1 [facility] for referral (narrative)* Outpatient Procedure (Routine) - Closed Specialty Diagnoses / Procedures Referred By Mita clarke Referred To Contact [facility] Diagnoses Encounter for screening colonoscopy Procedures COLONOSCOPY SCREENING COLONOSCOPY FLX DX W/COLLJ SPEC WHEN Nina Huff PA-C [address] [place] [address] [facility] Disease [address] [address] Referral ID Status Reason Start Date Expiration Date V isits Requested Visits Authorized [id number] Closed Auto-Generate d Referral 06/17/2022 06/17/2023 1 1 [facility] for referral (narrative)* Diagnostic Procedure Only (Routine) - Pending Review Specialty Diagnoses / Procedures Referred By Mita t Referred To Contact [facility] Diagnoses Encounter for screening mammogram for breast cancer Procedures ELSA SCREENING SCREENING MAMMOGRAPHY BI 2-VIEW BREAST INC Taty Chen MD [address] [place] [address] [facility] [address] [place] [address] Referral ID Status Reason Start Date Expiration Date Visits Requested Visits Authorized [id number] Pending Review Auto-Generat ed Referral 03/11/2023 04/09/2024 1 1 [facility] for referral (narrative)* Diagnostic Procedure Only (Routine) -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 Follow-up Stitches out Reason Comments Post-op Post op ORIF left 5t h. X-rays ordered for today. Occasional tylenol or advil. . Feels "prickly". Hurts worse at night. Reason Comments 07/11 COLON [facility] Reason Comments Medication Problem Reason Comments F/U 6 Month Reason Comments Patient Update Patient Request Reason Onset Date Comments Transition Of Care 01/23/2023 Reason Comments Results Labs Reason Onset Date Comments Medication Refill 02/04/2023 Reason Onset Date Comments Refill Request 02/18/2023 Reason Comments Follow-up Pt would like a refi ll on the allopurinol Reason Comments Results Patient is here for an allopurinol refill and results of lab/uric acid. Reason Comments F/U 3 Month Reason Comments Foot Injury Pt states she is not sure what she did to her right foot but states it feels like she broke it again. She was cleaning yesterday and sat down when she got up she could not stand on foot. New xray today. Reason Comments Follow-up Peroneal tendonitis f/u. Pain today is 5/10. Reason Comments 6 Month Exam Reason Comments Follow-up Migraine Reason Comments Trulicity Reason Onset Date Comments Med Management 03/15/2024 gabapentin (Neur ontin) 400 MG capsule Reason Comments Follow-up Patient is here for a one year follow up of her right foot. She would like a refill of her allopurinol. Reason Comments Results Reason Onset Date Comments Medication Problem 11/13/2022 Reason Comments Orders [facility] [place] eval and tx for dysphagia Reason Comments Med Refill Reason Comments Insurance Authorization Reason Comments F/U 6 Month Reason Onset Date Comments Refill Request 03/14/2025 Reason Comments Follow-up Headache Reason Comments Well Woman Specialty Diagnoses / Procedures Referred By Contjane t Referred To Contact Gynecology Diagnoses Screening for cervical cancer Procedures CONSULT TO GYNECOLOGY OFFICE/[facility] 60 MINUTES Taty Julian MD [address] [place] [address] Phone: tel: fax: Referral ID Status Reason Start Date Expiration Date V isits Requested Visits Authorized [id number] Closed PCP Requested Referral Auto-Generated Referral 03/10/2025 03/10/2026 1 1 Reason Onset Date Comments Refill Request 04/17/2025 Reason Comments Medication Question Reason Comments Follow-up 1 yr f/u gout. Pt wo uld like L ft checked for neuropathy. Last A1c 6.1 in 03/02/25 Reason Comments Results 4 wk f/u nerve condu ction velocity study left foot. Pt C/O Left dorsal foot pain Care Teams (unrecognized sec tion and content) Delicatessen Clerk Relationship Specialty Start Date End Date Tayt Julian MD [address] [facility] [address] [place] [address] PCP - General Family Medicine 08/31/19 Delicatessen Clerk Relationship Specialty Start Date End Date Taty Julian MD [address] [facility] [address] [place] [address] PCP - General Family Medicine 08/31/19 Delicatessen Clerk Relationship Specialty Start Date End Date Taty Julian MD [address] [facility] [address] [place] [address] PCP - General Family Medicine 08/31/19 Delicatessen Clerk Relationship Specialty Start Date End Date Taty Julian MD [facility] [address] [place] [address] PCP - General Family Medicine 08/31/19 Delicatessen Clerk Relationship Specialty Start Date End Date Taty Julian MD [address] [place] [address] [address] [place] [address] PCP - General Family Medicine 08/31/19 Delicatessen Clerk Relationship Specialty Start Date End Date Taty Julian MD [facility] [address] [place] [address] PCP - General Family Medicine 08/31/19 Delicatessen Clerk Relationship Specialty Start Date End Date Taty Julian MD [address] [place] [address] [address] [place] [address] PCP - General Family Medicine 08/31/19 Delicatessen Clerk Relationship Specialty Start Date End Date Taty Julian MD [address] [place] [address] [address] [place] [address] PCP - General Family Medicine 08/31/19 Delicatessen Clerk Relationship Specialty [place] [address] [place] [address] [address] [place] [address] PCP - General Family Medicine 08/31/19 Delicatessen Clerk Relationship Specialty Start Date End Date Taty Julian MD [address] [facility] [address] [place] [address] PCP - General Family Medicine 08/31/19 Delicatessen Clerk Relationship Specialty Start Date End Date Taty Julian MD [address] [facility] [place] [address] PCP - General Family Practice 08/20/11 Rao Grier [address] [facility] [place] [address] Ophthalmology 02/25/18 Delicatessen Clerk Relationship Specialty Start Date End Date Taty Julian MD [address] [facility] [place] [address] PCP - General Family Practice 08/20/11 Rao Grier [address] [facility] [place] [address] Ophthalmology 02/25/18 Delicatessen Clerk Relationship Specialty Start Date End Date Taty Julian MD [address] [facility] [address] [place] [address] PCP - General Family Medicine 08/31/19 Delicatessen Clerk Relationship Specialty Start Date End Date Taty Julian MD [address] [facility] [address] [place] [address] PCP - General Family Medicine 08/31/19 Delicatessen Clerk Relationship Specialty Start Date End Date Taty Julian MD [address] [facility] [address] [place] [address] PCP - General Family Medicine 08/31/19 Delicatessen Clerk Relationship Specialty Start Date End Date Taty Julian MD [address] [facility] [place] [address] PCP - General Family Practice 08/20/11 Rao Grier [address] [facility] [place] [address] Ophthalmology 02/25/18 Delicatessen Clerk Relationship Specialty Start Date End Date Taty Julian MD [address] [facility] [place] [address] PCP - General Family Medicine 08/20/11 Rao Grier [address] [facility] [place] [address] Ophthalmology 02/25/18 Delicatessen Clerk Relationship Specialty Start Date End Date Taty Julian MD [address] [facility] [place] [address] PCP - General Family Medicine 08/20/11 Rao Grier [address] [facility] [place] [address] Ophthalmology 02/25/18 Delicatessen Clerk Relationship Specialty Start Date End Date Taty Julian MD [address] [facility] [place] [address] PCP - General Family Medicine 08/20/11 Rao Grier [address] [facility] [place] [address] Ophthalmology 02/25/18 Delicatessen Clerk Relationship Specialty Start Date End Date Taty Julian MD [address] [facility] [address] [place] [address] PCP - General Family Medicine 08/31/19 Delicatessen Clerk Relationship Specialty Start Date End Date Taty Julian MD [address] [facility] [place] [address] PCP - General Family Medicine 08/20/11 Rao Grier [address] [facility] [place] [address] Ophthalmology 02/25/18 Delicatessen Clerk Relationship Specialty Start Date End Date Taty Julian MD [address] [facility] [place] [address] PCP - General Family Medicine 08/20/11 Rao Grier [address] [facility] [place] [address] Ophthalmology 02/25/18 Delicatessen Clerk Relationship Specialty Start Date End Date Taty Julian MD [address] [facility] [place] [address] PCP - General Family Medicine 08/20/11 Rao Grier [address] [facility] [place] [address] Ophthalmology 02/25/18 Delicatessen Clerk Relationship Specialty Start Date End Date Taty Julian MD [address] [facility] [place] [address] PCP - General Family Medicine 08/20/11 Rao Grier [address] [facility] [place] [address] Ophthalmology 02/25/18 Team Status: Active Member Role Status Dates Dr. Taty Julian MD Family Provider Active Dr. Taty Julian MD Primary Care Provider Active Team Status: Active Member Role Status Dates Dr. Taty Julian MD Primary Care Provider Active Dr. Asad Macario , DO Emergency Provider Active Dr. Taty Kong , DO Admit Provider, Attending Pro vider Active Team Status: Active Member Role Status Dates Dr. Taty Julian MD Primary Care Provider Active Dr. Asad Macario , DO Emergency Provider Active Dr. Taty Kong , DO Admit Provider, Attending Provider, Other Provider Active Team Status: Active Member Role Status Dates Dr. Taty Julian MD Primary Care Provider Active Dr. Asad Macario , DO Emergency Provider Active Dr. Taty Kong , DO Admit Provider, Other Provide r Active Dr. Toño Curtis , DO Attending Provider Active Team Status: Active Member Role Status Dates Dr. Taty Julian MD Primary Care Provider Active Dr. Toño Curtis , DO Attending Provider Active Team Status: Active Member Role Status Dates Dr. Taty Julian MD Primary Care Provider Active Dr. Asad Macario , DO Emergency Provider Active Dr. Taty Kong , DO Admit Provider, Other Provide r Active Dr. Gerber Moreno MD Attending Provider, Other Provider Active Team Status: Active Member Role Status Dates Dr. Taty Julian MD Primary Care Provider Active Dr. Asad Macario , Emergency Provider Active Dr. Taty Kong , DO Admit Provider, Other Provide r Active Dr. Gerber Moreno MD Other Provider Active Dr. Toño Curtis , DO Attending Provider Active Team Status: Inactive Member Role Status Dates Dr. Taty Julian MD Primary Care Provider Active Dr. Asad Macario , Emergency Provider Active Dr. Taty Kong , DO Admit Provider, Other Provide r Active Dr. Gerber Moreno MD Attending Provider Active Delicatessen Clerk Relationship Specialty Start Date End Date Taty Julian MD [address] [place] [address] PCP - General Family Medicine 08/20/11 Rao Grier [address] [place] [address] Ophthalmology 02/25/18 Delicatessen Clerk Relationship Specialty Start Date End Date Taty Julian MD [address] [place] [address] PCP - General Family Medicine 08/20/11 Rao Grier [address] [place] [address] Ophthalmology 02/25/18 Delicatessen Clerk Relationship Specialty Start Date End Date Taty Julian MD [address] [facility] [place] [address] PCP - General Family Medicine 08/31/19 Delicatessen Clerk Relationship Specialty Start Date End Date Taty Julian MD [address] [place], [place] [id number] PCP - General Family Medicine 08/20/11 Rao Grier [address] [place], [place] [address] Ophthalmology 02/25/18 Delicatessen Clerk Relationship Specialty Start Date End Date Taty Julian MD [address] [facility] [place], [place] [address] PCP - General Family Medicine 08/31/19 Delicatessen Clerk Relationship Specialty Start Date End Date Taty Julian MD [address] [place], [place] [id number] PCP - General Family Medicine 08/20/11 Rao Grier [address] [place], [place] [address] Ophthalmology 02/25/18 Delicatessen Clerk Relationship Specialty Start Date End Date Taty Julian [address] [place], [place] [address] PCP - General 09/04/20 Team Status: Active Member Role Status Dates Dr. Taty Julian MD Primary Care Provider Active Dr. Asad Macario , Emergency Provider Active Dr. Taty Kong , DO Admit Provider, Other Provide r Active Dr. Toño Curtis , DO Attending Provider Active Dr. Gebrer Moreno MD Referring Provider Active Team Status: Active Member Role Status Dates Dr. Taty Julian MD Primary Care Provider Active Dr. Toño Curtis , Attending Provider Active Dr. Gerber Moreno MD Referring Provider Active Team Status: Active Member Role Status Dates Dr. Taty Julian MD Primary Care Provider Active Dr. Asad Macario DO Emergency Provider Active Dr. Taty Kong , DO Admit Provider, Other Provide r Active Dr. Gerber Moreno MD Referring Provider, Other Provider Active Dr. Toño Curtis , DO Attending Provider Active Team Status: Active Member Role Status Dates Dr. Taty Julian MD Primary Care Provider Active Dr. Laury Frederick MD Attending Provider Activ e Dr. Taty Kong DO Referring Provider Active Team Status: Inactive Member Role Status Dates Dr. Taty Julian MD Primary Care Provider, Referr ing Provider Active Leta Kowalski MARKETING PROGRAMS SPECIALIST, MARKETING PROGRAMS SPECIALIST-C Attending Provider Active Team Status: Inactive Member Role Status Dates Dr. Taty Julian MD Primary Care Provider Active Leta Kowalski MARKETING PROGRAMS SPECIALIST, MARKETING PROGRAMS SPECIALIST-C Attending Provider, Referrin g Provider Active Team Status: Active Member Role Status Dates Dr. Taty Julian MD Primary Care Provider, Referr ing Provider Active Dr. Toño Curtis DO Attending Provider, Other Prov ider Active Team Status: Inactive Member Role Status Dates Dr. Taty Julian MD Primary Care Provider, Referr ing Provider Active Dr. Toño Curtis DO Attending Provider Active Delicatessen Clerk Relationship Specialty Start Date End Date Taty Julian MD [address] [place] [address] PCP - General Family Medicine 08/31/19 Delicatessen Clerk Relationship Specialty Start Date End Date Taty Julian MD [address] [place] [id number] PCP - General Family Medicine 08/20/11 Rao Grier [address] [place] [address] Ophthalmology 02/25/18 Team Status: Inactive Member Role Status Dates Dr. Taty Julian MD Primary Care Provider Active Dr. Toño Curtis DO Attending Provider, Referring Provider Active Delicatessen Clerk Relationship Specialty Start Date End Date Taty Julian MD [address] [place] [address] PCP - General Family Medicine 08/31/19 Delicatessen Clerk Relationship Specialty Start Date End Date Taty Julian MD [address] [place] [address] [address] [place], [place] [address] PCP - General Family Medicine 08/31/19 Delicatessen Clerk Relationship Specialty Start Date End Date Taty Julian MD [address] [place], [place] [address] PCP - General Family Medicine 08/20/11 Rao Grier [facility] [place], [place] [address] Ophthalmology 02/25/18 Team Status: Inactive Member Role Status Dates Dr. Taty Julian MD Primary Care Provider, Referr ing Provider Active Dr. Tima Worrell MD Attending Provider Active Team Status: Inactive Member Role Status Dates Dr. Taty Julian MD Primary Care Provider Active Dr. Tima Worrell MD Attending Provider, Referring P rovider Active Team Status: Active Member Role Status Dates Dr. Taty Julian MD Primary Care Provider Active Dr. Tima Worrell MD Attending Provider, Referring P rovider Active Delicatessen Clerk Relationship Specialty Start Date End Date Taty Julian [address] [place] [address] PCP - General 09/04/20 Delicatessen Clerk Relationship Specialty Start Date End Date Taty Julian MD [address] [place] [address] PCP - General Family Medicine 08/20/11 Rao Grier [address] [place], [place] [address] Ophthalmology 02/25/18 Delicatessen Clerk Relationship Specialty Start Date End Date Taty Julian [address] [place], [place] [address] PCP - General 09/04/20 Delicatessen Clerk Relationship Specialty Start Date End Date Taty Julian [address] [facility] [place] [address] PCP - General 09/04/20 Delicatessen Clerk Relationship Specialty Start Date End Date Taty Julian MD [address] [facility] [place] [address] PCP - General Family Medicine 08/20/11 Rao Grier [address] [facility] [place] [address] Ophthalmology 02/25/18 Delicatessen Clerk Relationship Specialty Start Date End Date Taty Julian MD [address] [facility] [place] [address] PCP - General Family Medicine 08/20/11 Rao Grier [address] [facility] [place] [address] Ophthalmology 02/25/18 Delicatessen Clerk Relationship Specialty Start Date End Date Taty Julian MD [address] [facility] [place] [address] PCP - General Family Medicine 08/20/11 Rao Grier [address] [facility] [place] [address] Ophthalmology 02/25/18 Delicatessen Clerk Relationship Specialty Start Date End Date Taty Julian MD [address] [facility] [place] [address] PCP - General Family Medicine 08/20/11 Rao Grier [address] [facility] [place] [address] Ophthalmology 02/25/18 Delicatessen Clerk Relationship Specialty Start Date End Date Taty Julian MD [address] [facility] [place] [address] PCP - General Family Medicine 08/20/11 Rao Grier [address] [facility] [place] [address] Ophthalmology 02/25/18 Delicatessen Clerk Relationship Specialty Start Date End Date Taty Julian MD [address] [place] [address] PCP - General Family Medicine 08/20/11 Rao Grier [address] [place] [address] Ophthalmology 02/25/18 Delicatessen Clerk Relationship Specialty Start Date End Date Taty Julian [address] [place] [address] PCP - General 09/04/20 Delicatessen Clerk Relationship Specialty Start Date End Date Taty Julian MD [address] [place] [address] PCP - General Family Medicine 08/20/11 Rao Grier [address] [facility] [place] [address] Ophthalmology 02/25/18 Mago Parish APRN.CNP [address] [facility] [place] [address] Chief Specialist [facility] 09/25/24 Delicatessen Clerk Relationship Specialty Start Date End Date Taty Julian MD [address] [facility] [place] [address] PCP - General Family Medicine 08/20/11 Rao Grier [address] [facility] [place] [address] Ophthalmology 02/25/18 Mago Parish APRN.VISUAL BASIC DEVELOPER [address] [facility] [place] [address] Chief Specialist [facility] 09/25/24 Isrrael Bruner APRN.VISUAL BASIC DEVELOPER [address] [facility] [place] [address] Chief Specialist [facility] Medicine 10/04/24 Delicatessen Clerk Relationship Specialty Start Date End Date Taty Julian MD [address] [place] [address] PCP - General Family Medicine 08/20/11 Rao Grier [address] [place] [address] Ophthalmology 02/25/18 Mago Parish APRN.VISUAL BASIC DEVELOPER [address] [place] [address] Chief Specialist [facility] 09/25/24 Isrrael Bruner APRN.VISUAL BASIC DEVELOPER [address] [facility] [place] [address] Chief Specialist [facility] 10/04/24 Team Status: Inactive Member Role Status Dates Dr. Taty Julian MD Primary Care Provider Active Start: September 20, 2024 End: September 20, 2024 Dr. Tima Worrell MD Attending Provider Active Start: September 20, 2024 End: September 20, 2024 Dr. Tima Worrell MD Referring Provider Active Start: September 20, 2024 End: September 20, 2024 Team Status: Inactive Member Role Status Dates Dr. Taty Julian MD Primary Care Provider Active Start: September 28, 2024 End: September 28, 2024 Dr. Taty Julian MD Referring Provider Active Start: September 28, 2024 End: September 28, 2024 Dr. Tima Worrell MD Attending Provider Active Start: September 28, 2024 End: September 28, 2024 Team Status: Inactive Member Role Status Dates Dr. Taty Julian MD Primary Care Provider Active Start: October 14, 2024 End: October 14, 2024 Dr. Tima Worrell MD Attending Provider Active Start: October 14, 2024 End: October 14, 2024 Dr. Tiam Worrell MD Referring Provider Active Start: October 14, 2024 End: October 14, 2024 Team Status: Inactive Member Role Status Dates Dr. Taty Julian MD Primary Care Provider Active Start: November 09, 2024 End: November 09, 2024 Dr. Taty Julian MD Referring Provider Active Start: November 09, 2024 End: November 09, 2024 Dr. Toño Curtis DO Attending Provider Active Start: November 09, 2024 End: November 09, 2024 Team Status: Active Member Role Status Dates Dr. Taty Julian MD Primary Care Provider Active Start: November 09, 2024 Dr. Taty Julian MD Referring Provider Active Start: November 09, 2024 Dr. Toño Curtis DO Attending Provider Active Start: November 09, 2024 Dr. Toño Curtis DO Other Provider Active St art: November 09, 2024 Team Status: Active Member Role Status Dates Dr. Taty Julian MD Primary Care Provider Active Start: November 09, 2024 End: November 09, 2024 Dr. Laury Frederick MD Attending Provider Activ e Start: November 09, 2024 End: November 09, 2024 Dr. Toño Curtis DO Referring Provider Active Start: November 09, 2024 End: November 09, 2024 Team Status: Inactive Member Role Status Dates Dr. Taty Julian MD Primary Care Provider Active Start: December 24, 2024 End: December 24, 2024 Dr. Tima Worrell MD Attending Provider Active Start: December 24, 2024 End: December 24, 2024 Dr. Tima Worrell MD Referring Provider Active Start: December 24, 2024 End: December 24, 2024 Team Status: Active Member Role Status Dates Dr. Taty Julian MD Primary Care Provider Active Start: December 26, 2024 Dr. Tima Worrell MD Attending Provider Active Start: December 26, 2024 Dr. Tima Worrell MD Referring Provider Active Start: December 26, 2024 Team Status: Inactive Member Role Status Dates Dr. Taty Julian MD Primary Care Provider Active Start: December 29, 2024 End: December 29, 2024 Dr. Taty Julian MD Referring Provider Active Start: December 29, 2024 End: December 29, 2024 Dr. Tima Worrell MD Attending Provider Active Start: December 29, 2024 End: December 29, 2024 Team Status: Active Member Role Status Dates Dr. Taty Julian MD Primary Care Provider Active Start: December 30, 2024 Dr. Tima Worrell MD Attending Provider Active Start: December 30, 2024 Dr. Tima Worrell MD Referring Provider Active Start: December 30, 2024 Team Status: Inactive Member Role Status Dates Dr. Taty Julian MD Primary Care Provider Active Start: December 30, 2024 End: December 30, 2024 Dr. Tima Worrell MD Attending Provider Active Start: December 30, 2024 End: December 30, 2024 Dr. Tima Worrell MD Referring Provider Active Start: December 30, 2024 End: December 30, 2024 Team Status: Active Member Role Status Dates Dr. Taty Julian MD Primary Care Provider Active Team Status: Inactive Member Role Status Dates Dr. Taty Julian MD Primary Care Provider Active Start: February 27, 2025 End: February 27, 2025 Dr. Taty Julian MD Referring Provider Active Start: February 27, 2025 End: February 27, 2025 Dr. Toño Curtis DO Attending Provider Active Start: February 27, 2025 End: February 27, 2025 Team Status: Active Member Role Status Dates Dr. Taty Julian MD Primary Care Provider Active Start: February 27, 2025 Dr. Taty Julian MD Referring Provider Active Start: February 27, 2025 Dr. Toño Curtis , DO Attending Provider Active Start: February 27, 2025 Dr. Toño Curtis , DO Other Provider Active St art: February 27, 2025 Delicatessen Clerk Relationship Specialty Start Date End Date Taty Julian MD [address] [facility] [place] [address] PCP - General Family Medicine 08/20/11 Rao Grier [address] [facility] [place] [address] Ophthalmology 02/25/18 Isrrael Bruner APRN.VISUAL BASIC DEVELOPER [address] [facility] [place] [address] Chief Specialist [facility] 10/04/24 Delicatessen Clerk Relationship Specialty Start Date End Date Taty Julian [address] [facility] [place] [address] PCP - General 09/04/20 Delicatessen Clerk Relationship Specialty Start Date End Date Taty Julian MD [address] [facility] [place] [address] PCP - General Family Medicine 08/20/11 Rao Grier [address] [facility] [place] [address] Ophthalmology 02/25/18 Isrrael Bruner APRN.VISUAL BASIC DEVELOPER [address] [facility] [place] [address] Chief Specialist [facility] 10/04/24 Team Status: Active Member Role/Relationship Status Dates Dr. Taty Julian MD Primary Care Provider Active Team Status: Inactive Member Role/Relationship Status Dates Dr. Taty Julian MD Primary Care Provider Active Start: December 24, 2024 End: December 24, 2024 Dr. Tima Worrell MD Attending Provider Active Start: December 24, 2024 End: December 24, 2024 Dr. Tima Worrell MD Referring Provider Active Start: December 24, 2024 End: December 24, 2024 Team Status: Inactive Member Role/Relationship Status Dates Dr. Taty Julian MD Primary Care Provider Active Start: December 26, 2024 End: December 26, 2024 Dr. Tima Worrell MD Attending Provider Active Start: December 26, 2024 End: December 26, 2024 Dr. Tima Worrell MD Referring Provider Active Start: December 26, 2024 End: December 26, 2024 Team Status: Inactive Member Role/Relationship Status Dates Dr. Taty Julian MD Primary Care Provider Active Start: December 29, 2024 End: December 29, 2024 Dr. Taty Julian MD Referring Provider Active Start: December 29, 2024 End: December 29, 2024 Dr. Tima Worrell MD Attending Provider Active Start: December 29, 2024 End: December 29, 2024 Team Status: Inactive Member Role/Relationship Status Dates Dr. Taty Julian MD Primary Care Provider Active Start: December 30, 2024 End: December 30, 2024 Dr. Tima Worrell MD Attending Provider Active Start: December 30, 2024 End: December 30, 2024 Dr. Tima Worrell MD Referring Provider Active Start: December 30, 2024 End: December 30, 2024 Team Status: Inactive Member Role/Relationship Status Dates Dr. Taty Julian MD Primary Care Provider Active Start: February 27, 2025 End: February 27, 2025 Dr. Taty Julian MD Referring Provider Active Start: February 27, 2025 End: February 27, 2025 Dr. Toño Curtis DO Attending Provider Active Start: February 27, 2025 End: February 27, 2025 Team Status: Active Member Role/Relationship Status Dates Dr. Taty Julian MD Primary Care Provider Active Start: February 27, 2025 Dr. Taty Julian MD Referring Provider Active Start: February 27, 2025 Dr. Toño Curtis DO Attending Provider Active Start: February 27, 2025 Dr. Toño Curtis DO Other Provider Active St art: February 27, 2025 Delicatessen Clerk Relationship Specialty Start Date End Date Taty Julian MD [address] [facility] [place] [address] PCP - General Family Medicine 08/20/11 Rao Grier [address] [facility] [place] [address] Ophthalmology 02/25/18 Isrrael Bruner CMM OPERATOR.VISUAL BASIC DEVELOPER [address] [facility] [place] [address] Chief Specialist [facility] 10/04/24 Delicatessen Clerk Relationship Specialty Start Date End Date Taty Julian MD [address] [facility] [place] [address] PCP - General Family Medicine 08/20/11 Rao Grier [address] [facility] [place] [address] Ophthalmology 02/25/18 Isrrael Bruner, CMM OPERATOR.VISUAL BASIC DEVELOPER [address] [facility] [place] [address] Chief Specialist [facility] 10/04/24 Team Status: Inactive Member Role/Relationship Status Dates Dr. Taty Julian MD Primary Care Provider Active Start: December 26, 2024 End: December 26, 2024 Dr. Tima Worrell MD Attending Provider Active Start: December 26, 2024 End: December 26, 2024 Dr. Tima Worrell MD Referring Provider Active Start: December 26, 2024 End: December 26, 2024 Team Status: Inactive Member Role/Relationship Status Dates Dr. Taty Julian MD Primary Care Provider Active Start: December 29, 2024 End: December 29, 2024 Dr. Taty Julian MD Referring Provider Active Start: December 29, 2024 End: December 29, 2024 Dr. Tima Worrell MD Attending Provider Active Start: December 29, 2024 End: December 29, 2024 Team Status: Inactive Member Role/Relationship Status Dates Dr. Taty Julian MD Primary Care Provider Active Start: December 30, 2024 End: December 30, 2024 Dr. Tima Worrell MD Attending Provider Active Start: December 30, 2024 End: December 30, 2024 Dr. Tima Worrell MD Referring Provider Active Start: December 30, 2024 End: December 30, 2024 Team Status: Inactive Member Role/Relationship Status Dates Dr. Taty Julian MD Primary Care Provider Active Start: February 27, 2025 End: February 27, 2025 Dr. Taty Julian MD Referring Provider Active Start: February 27, 2025 End: February 27, 2025 Dr. Toño Curtis DO Attending Provider Active Start: February 27, 2025 End: February 27, 2025 Team Status: Active Member Role/Relationship Status Dates Dr. Taty Julian MD Primary Care Provider Active Start: February 27, 2025 Dr. Taty Julian MD Referring Provider Active Start: February 27, 2025 Dr. Toño Curtis DO Attending Provider Active Start: February 27, 2025 Dr. Toño Curtis DO Other Provider Active St art: February 27, 2025 Team Status: Inactive Member Role/Relationship Status Dates Dr. Taty Julian MD Primary Care Provider Active Start: April 18, 2025 End: April 18, 2025 Dr. Tima Worrell MD Attending Provider Active Start: April 18, 2025 End: April 18, 2025 Dr. Tima Worrell MD Referring Provider Active Start: April 18, 2025 End: April 18, 2025 Team Status: Active Member Role/Relationship Status Dates Dr. Taty Julian MD Primary Care Provider Active Start: April 24, 2025 Dr. Taty Julian MD Referring Provider Active Start: April 24, 2025 Dr. Tima Worrell MD Attending Provider Active Start: April 24, 2025 Team Status: Inactive Member Role/Relationship Status Dates Dr. Taty Julian MD Primary Care Provider Active Start: April 24, 2025 End: April 24, 2025 Dr. Taty Julian MD Referring Provider Active Start: April 24, 2025 End: April 24, 2025 Dr. Tima Worrell MD Attending Provider Active Start: April 24, 2025 End: April 24, 2025 Team Status: Inactive Member Role/Relationship Status Dates Dr. Taty Julian MD Primary Care Provider Active Start: February 27, 2025 End: February 27, 2025 Dr. Taty Julian MD Referring Provider Active Start: February 27, 2025 End: February 27, 2025 Dr. Toño Curtis DO Attending Provider Active Start: February 27, 2025 End: February 27, 2025 Team Status: Active Member Role/Relationship Status Dates Dr. Taty Julian MD Primary Care Provider Active Start: February 27, 2025 Dr. Taty Julian MD Referring Provider Active Start: February 27, 2025 Dr. Toño Curtis DO Attending Provider Active Start: February 27, 2025 Dr. Toño Curtis DO Other Provider Active St art: February 27, 2025 Team Status: Inactive Member Role/Relationship Status Dates Dr. Taty Julian MD Primary Care Provider Active Start: April 18, 2025 End: April 18, 2025 Dr. Tima Worrell MD Attending Provider Active Start: April 18, 2025 End: April 18, 2025 Dr. Tima Worrell MD Referring Provider Active Start: April 18, 2025 End: April 18, 2025 Team Status: Inactive Member Role/Relationship Status Dates Dr. Taty Julian MD Primary Care Provider Active Start: April 24, 2025 End: April 24, 2025 Dr. Taty Julian MD Referring Provider Active Start: April 24, 2025 End: April 24, 2025 Dr. Tima Worrell MD Attending Provider Active Start: April 24, 2025 End: April 24, 2025 Team Status: Inactive Member Role/Relationship Status Dates Dr. Taty Julian MD Primary Care Provider Active Start: May 03, 2025 End: May 03, 2025 Dr. Tima Worrell MD Attending Provider Active Start: May 03, 2025 End: May 03, 2025 Dr. Tima Worrell MD Referring Provider Active Start: May 03, 2025 End: May 03, 2025 Delicatessen Clerk Relationship Specialty Start Date End Date Taty Julian MD [address] [facility] [place] [address] PCP - General Family Medicine 08/20/11 Rao Grier [address] [facility] [place] [address] Ophthalmology 02/25/18 Isrrael Bruner APRN.VISUAL BASIC DEVELOPER [address] [facility] [place] [address] Chief Specialist [facility] 10/04/24 Delicatessen Clerk Relationship Specialty Start Date End Date Taty Julian MD [address] [facility] [place] [address] PCP - General Family Medicine 08/20/11 Rao Grier [facility] [place] [address] Ophthalmology 02/25/18 Isrrael Bruner APRN.VISUAL BASIC DEVELOPER [address] [facility] [place] [address] Chief Specialist [facility] 10/04/24 Delicatessen Clerk Relationship Specialty Start Date End Date Taty Julian MD [address] [facility] [place] [address] PCP - General 11/02/19 Delicatessen Clerk Relationship Specialty Start Date End Date Taty Juilan MD [address] [facility] [place] [address] PCP - General 11/02/19 Delicatessen Clerk Relationship Specialty Start Date End Date Taty Julian MD [address] [facility] [address] [place] [address] PCP - General Family Medicine 08/31/19 Delicatessen Clerk Relationship Specialty Start Date End Date Taty Julian MD [address] [place] [address] PCP - General Family Medicine 08/20/11 Rao Grier [facility] [place] [address] Ophthalmology 02/25/18 Isrrael Bruner APRN.VISUAL BASIC DEVELOPER [address] [place] [address] Chief Specialist [facility] 10/04/24 Delicatessen Clerk Relationship Specialty Start Date End Date Taty Julian MD [address] [place] [address] PCP - General Family Medicine 08/20/11 Rao Grier [facility] [place] [address] Ophthalmology 02/25/18 Isrrael Bruner APRN.VISUAL BASIC DEVELOPER [address] [place] [address] Chief Specialist [facility] 10/04/24 Delicatessen Clerk Relationship Specialty Start Date End Date Taty Julian MD [address] [address] PCP - General Family Medicine 08/31/19 Delicatessen Clerk Relationship Specialty Start Date End Date Taty Julian MD [facility] [address] [address] PCP - General Family Medicine 08/31/19 Delicatessen Clerk Relationship Specialty Start Date End Date Taty Julian MD [address] [place] [address] PCP - General Family Medicine 08/31/19 Delicatessen Clerk Relationship Specialty Start Date End Date Taty Julian MD [address] [place] [id number] PCP - General Family Medicine 08/31/19 Team Status: Active Member Role/Relationship Status Dates Dr. Taty Julian MD Primary care physician Active Team Status: Inactive Member Role/Relationship Status Dates Dr. Taty Julian MD Primary care physician Active Start: April 18, 2025 End: April 18, 2025 Dr. Tima Worrell MD Attending physician Active Start: April 18, 2025 End: April 18, 2025 Dr. Tima Worrell MD Referring Provider Active Start: April 18, 2025 End: April 18, 2025 Team Status: Inactive Member Role/Relationship Status Dates Dr. Taty Julian MD Primary care physician Active Start: April 24, 2025 End: April 24, 2025 Dr. Taty Julian MD Referring Provider Active Start: April 24, 2025 End: April 24, 2025 Dr. Tima Worrell MD Attending physician Active Start: April 24, 2025 End: April 24, 2025 Team Status: Inactive Member Role/Relationship Status Dates Dr. Taty Julian MD Primary care physician Active Start: May 03, 2025 End: May 03, 2025 Dr. Tima Worrell MD Attending physician Active Start: May 03, 2025 End: May 03, 2025 Dr. Tima Worrell MD Referring Provider Active Start: May 03, 2025 End: May 03, 2025 Team Status: Inactive Member Role/Relationship Status Dates Dr. Taty Julian MD Primary care physician Active Start: July 30, 2025 End: July 30, 2025 Dr. Sergey Brennan MD Attending physician Active St art: July 30, 2025 End: July 30, 2025 Dr. Sergey Brennan MD Emergency Department Physician Active Start: July 30, 2025 End: July 30, 2025 Source Comments (unrecognize d section and content) In the event this informatio n is protected by the Federal Confidentiality of Alcohol and Drug Abuse Patient Records regulations: The Federal rules restrict any use of the information to criminally investigate or prosecute any alcohol or drug abuse patient.[facility] HospitalIn the event this information is protected by the Federal Confidentiality of Alcohol and Drug Abuse Patient Records regulations: The Federal rules restrict any use of the information to criminally investigate or prosecute any alcohol or drug abuse patient.[facility] HospitalIn the event this information is protected by the Federal Confidentiality of Alcohol and Drug Abuse Patient Records regulations: The Federal rules restrict any use of the information to criminally investigate or prosecute any alcohol or drug abuse patient.[facility] HospitalIn the event this information is protected by the Federal Confidentiality of Alcohol and Drug Abuse Patient Records regulations: The Federal rules restrict any use of the information to criminally investigate or prosecute any alcohol or drug abuse patient.[facility] HospitalIn the event this information is protected by the Federal Confidentiality of Alcohol and Drug Abuse Patient Records regulations: The Federal rules restrict any use of the information to criminally investigate or prosecute any alcohol or drug abuse patient.[facility] HospitalIn the event this information is protected by the Federal Confidentiality of Alcohol and Drug Abuse Patient Records regulations: The Federal rules restrict any use of the information to criminally investigate or prosecute any alcohol or drug abuse patient.[facility] HospitalIn the event this information is protected by the Federal Confidentiality of Alcohol and Drug Abuse Patient Records regulations: The Federal rules restrict any use of the information to criminally investigate or prosecute any alcohol or drug abuse patient.[facility] HospitalIn the event this information is protected by the Federal Confidentiality of Alcohol and Drug Abuse Patient Records regulations: The Federal rules restrict any use of the information to criminally investigate or prosecute any alcohol or drug abuse patient.[facility] HospitalIn the event this information is protected by the Federal Confidentiality of Alcohol and Drug Abuse Patient Records regulations: The Federal rules restrict any use of the information to criminally investigate or prosecute any alcohol or drug abuse patient.[facility] HospitalIn the event this information is protected by the Federal Confidentiality of Alcohol and Drug Abuse Patient Records regulations: The Federal rules restrict any use of the information to criminally investigate or prosecute any alcohol or drug abuse patient.[facility] HospitalIn the event this information is protected by the Federal Confidentiality of Alcohol and Drug Abuse Patient Records regulations: The Federal rules restrict any use of the information to criminally investigate or prosecute any alcohol or drug abuse patient.[facility] HospitalIn the event this information is protected by the Federal Confidentiality of Alcohol and Drug Abuse Patient Records regulations: The Federal rules restrict any use of the information to criminally investigate or prosecute any alcohol or drug abuse patient.[facility] HospitalIn the event this information is protected by the Federal Confidentiality of Alcohol and Drug Abuse Patient Records regulations: The Federal rules restrict any use of the information to criminally investigate or prosecute any alcohol or drug abuse patient.[facility] HospitalIn the event this information is protected by the Federal Confidentiality of Alcohol and Drug Abuse Patient Records regulations: The Federal rules restrict any use of the information to criminally investigate or prosecute any alcohol or drug abuse patient.[facility] HospitalIn the event this information is protected by the Federal Confidentiality of Alcohol and Drug Abuse Patient Records regulations: The Federal rules restrict any use of the information to criminally investigate or prosecute any alcohol or drug abuse patient.[facility] HospitalIn the event this information is protected by the Federal Confidentiality of Alcohol and Drug Abuse Patient Records regulations: The Federal rules restrict any use of the information to criminally investigate or prosecute any alcohol or drug abuse patient.[facility] HospitalIn the event this information is protected by the Federal Confidentiality of Alcohol and Drug Abuse Patient Records regulations: The Federal rules restrict any use of the information to criminally investigate or prosecute any alcohol or drug abuse patient.[facility] HospitalIn the event this information is protected by the Federal Confidentiality of Alcohol and Drug Abuse Patient Records regulations: The Federal rules restrict any use of the information to criminally investigate or prosecute any alcohol or drug abuse patient.[facility] HospitalIn the event this information is protected by the Federal Confidentiality of Alcohol and Drug Abuse Patient Records regulations: The Federal rules restrict any use of the information to criminally investigate or prosecute any alcohol or drug abuse patient.[facility] HospitalIn the event this information is protected by the Federal Confidentiality of Alcohol and Drug Abuse Patient Records regulations: The Federal rules restrict any use of the information to criminally investigate or prosecute any alcohol or drug abuse patient.[facility] HospitalIn the event this information is protected by the Federal Confidentiality of Alcohol and Drug Abuse Patient Records regulations: The Federal rules restrict any use of the information to criminally investigate or prosecute any alcohol or drug abuse patient.[facility] HospitalIn the event this information is protected by the Federal Confidentiality of Alcohol and Drug Abuse Patient Records regulations: The Federal rules restrict any use of the information to criminally investigate or prosecute any alcohol or drug abuse patient.[facility] HospitalIn the event this information is protected by the Federal Confidentiality of Alcohol and Drug Abuse Patient Records regulations: The Federal rules restrict any use of the information to criminally investigate or prosecute any alcohol or drug abuse patient.[facility] HospitalIn the event this information is protected by the Federal Confidentiality of Alcohol and Drug Abuse Patient Records regulations: The Federal rules restrict any use of the information to criminally investigate or prosecute any alcohol or drug abuse patient.[facility] HospitalIn the event this information is protected by the Federal Confidentiality of Alcohol and Drug Abuse Patient Records regulations: The Federal rules restrict any use of the information to criminally investigate or prosecute any alcohol or drug abuse patient.[facility] HospitalIn the event this information is protected by the Federal Confidentiality of Alcohol and Drug Abuse Patient Records regulations: The Federal rules restrict any use of the information to criminally investigate or prosecute any alcohol or drug abuse patient.[facility] HospitalIn the event this information is protected by the Federal Confidentiality of Alcohol and Drug Abuse Patient Records regulations: The Federal rules restrict any use of the information to criminally investigate or prosecute any alcohol or drug abuse patient.[facility] HospitalIn the event this information is protected by the Federal Confidentiality of Alcohol and Drug Abuse Patient Records regulations: The Federal rules restrict any use of the information to criminally investigate or prosecute any alcohol or drug abuse patient.[facility] HospitalIn the event this information is protected by the Federal Confidentiality of Alcohol and Drug Abuse Patient Records regulations: The Federal rules restrict any use of the information to criminally investigate or prosecute any alcohol or drug abuse patient.[facility] HospitalIn the event this information is protected by the Federal Confidentiality of Alcohol and Drug Abuse Patient Records regulations: The Federal rules restrict any use of the information to criminally investigate or prosecute any alcohol or drug abuse patient.[facility] HospitalIn the event this information is protected by the Federal Confidentiality of Alcohol and Drug Abuse Patient Records regulations: The Federal rules restrict any use of the information to criminally investigate or prosecute any alcohol or drug abuse patient.[facility] HospitalIn the event this information is protected by the Federal Confidentiality of Alcohol and Drug Abuse Patient Records regulations: The Federal rules restrict any use of the information to criminally investigate or prosecute any alcohol or drug abuse patient.[facility] HospitalIn the event this information is protected by the Federal Confidentiality of Alcohol and Drug Abuse Patient Records regulations: The Federal rules restrict any use of the information to criminally investigate or prosecute any alcohol or drug abuse patient.[facility] HospitalIn the event this information is protected by the Federal Confidentiality of Alcohol and Drug Abuse Patient Records regulations: The Federal rules restrict any use of the information to criminally investigate or prosecute any alcohol or drug abuse patient.[facility] HospitalIn the event this information is protected by the Federal Confidentiality of Alcohol and Drug Abuse Patient Records regulations: The Federal rules restrict any use of the information to criminally investigate or prosecute any alcohol or drug abuse patient.[facility] Goals (unrecognized section and content) Goals may be documented in a n alternate sectionGoals may be documented in an alternate sectionGoals may be documented in an alternate sectionGoals may be documented in an alternate section FOR RECORDS PERTAINING TO PATIENTS WHO ARE OR HAVE BEEN ENROLLED IN A CHEMICAL DEPENDENCY/SUBSTANCEABUSE PROGRAM, SOME INFORMATION MAY BE OMITTED. This clinical summary was aggregated from multiple sources. Caution should be exercised in using it in the provision of clinical care. This summary normalizes information from multiple sources, and as a consequence, information in this document may materially change the coding, format and clinical context of patient data. In addition, data may be omitted in some cases. CLINICAL DECISIONS SHOULD BE BASED ON THE PRIMARY CLINICAL RECORDS. [employer] [facility] provides no warranty or guarantee of the accuracy or completeness of information in this document.
[2025-08-28] MEDS: Lactated Ringers 1,000 ML 15 ML IV (07:45)
--- NOTE | 2025-08-28 07:51 | PCM.HP.STD ---
HPI - General General Date of Admission: 08/28/25 Date of Service: 08/28/25 HPI Narrative JAVON CAMPBELL, is a 70 F who presents [Chief Complaint: Follow up, Cirrhosis Details: JAVON CAMPBELL, is a 69 F who presents to the office today for follow up. *[facility] hospitalization 01.18.23-01.21.23 for upper GIB with hematemesis with nausea and weakness. GI consulted 01.19.23. CT abd/pel 01.18.23 hepatomegaly with cirrhotic changes; stool throughout colon; enhancing nodule of duodenum [id number]. EGD 01.19.23 five columns oozing grade III varices upper/middle/lower esophagus, banded; three bleeding AVM in stomach; one non-bleeding duodenal ulcer. No specimens collected MRI 01.21.23 cirrhotic liver with splenomegaly; duodenal enhancement measuring 1.5cm. OV 6..23 with acidic stomach for which she has used PPI for 10 years. With lactulose BM daily, loose. reports forgetfulness. Denies sleep disturbance, jaundice, bleeding, pruritis. US 6.15.23 without ascites. EGD 04.08.2323 Grade II varices of middle/lower third esophagus, banded; small hiatal hernia; erythema with bleeding on lesser curvature of stomach, gastritis; 5mm mucosal polypoid OV 7.10.23 with improvement of nausea frequency. She did reduce lactulose QD with 2-3 BM/day. Confusion/brain fog has improved per . Notes increased cough with liquids but not consistently. Continues with nadolol and PPI EGD 08.10.23- Grade II esophageal varices, incompletely eradicated. Banded; small ammount of food in stomach. No specimines collected. OV 11.27.23- Pt is doing well since last visit. Reports intermittent postprandial RUQ pain and nausea. Takes Lactulose QD with 2-3 complete BM a day. Denied any edema, confusion/ brain fog or issues with sleep. Continues PPI with minimal heartburn. MELD Na score is 8. C/o mild upper quadrant abdominal pain adjacent with the food on lactulose but lactulose makes her more nauseous but no vomiting, burping and gaseous feeling. OV 2.14.24- Nausea, indigestion, and upper mid to LUQ abdomen abdominal pain after eating certain foods in the evening, attempting keep away from triggers. She states that food stays longer with burping and air/gas. Occasional Tums PRN with success. Nausea after taking lactulose improved. Loose stool about once daily. She takes lactulose 30 mL once daily. Mild swelling in feet. Gabapentin prescribed by neurologist effective sleep aide. Denies confusion, brain fog and BLE edema. Received correspondence from medical insurance prior auth needed Xifaxan through [employer]. CT abd/pel w/wo 12.16.23- Hepatomegaly and diffuse fatty infiltration of the liver Gastric emptying study 02.17.24- Abnormal, 102.96 mins 5.24 MELD na- 7 OV 03.07.24- Pt well since last visit. Continues to have nausea and RUQ abdominal discomfort/pressure like fist pressing. States she takes Lactulose once a day and BM are normal. She was able to get the Xifaxan. Denies dizziness, weakness, confusion, and swelling. 06.07.24- MELDna 8 07.06.24 EGD, grade II esophageal varices. Completely eradicated. Banded. Non-bleeding gastric ulcer with no stigma of bleeding. Biopsied. Portal hypertensive gastropathy. No gross lesions in the first portion of the duodenum. Lesser curvature ulcer biopsy, negative H.Pylori. Chronic ulcer with gastritis. Continue pantoprazole 40 mg BID, start Carafate TID x 8 weeks. OV 07.15.24- Since recent EGD, difficulty swallowing and chest heaviness. Nausea and heartburn before or after meals. No acute concerns. Denies dizziness, weakness, confusion or swelling. Need refill of iron tabs. Patient taking PPI twice daily and sucralfate 09.20.24- MELDna 6 OV 09.28.24 Pt here for f/u and reports trouble swallowing. Dysphagia with solid food/liquid food and 1 time gummy was stuck in the throat. And denies any edema, confusion/brain fog or sleep issues. Continues taking pantoprazole, lactulose, and Xifaxan daily. EGD 11.09.24- - Grade II esophageal varices. Incompletely eradicated. Banded. - Portal hypertensive gastropathy. - Chronic duodenitis. Biopsied. no pathologic diagnosis. RUQ Liver US; Elastography 10.14.24- liver measures 16.8 cm. increased echogenicity consistent with fatty infiltration. Median liver stiffness measured 10 kPa F2-F3 Metavir score. LUQ ABD US- Mild splenomegaly, spleen measures 13.3 cm x 5.2 cm x 6.3 cm. 3.8.25- MELD 6 OV 3.13.25- Fatigued. D/C from speech therapy with some improvement in swallowing. Was given exercises to continue at home. Continued occasional heartburn, pantoprazole 40 BID and diet changes helpful. Occ brief episodes nausea, crackers or sprite helpful. Continued RUQ pain unchanged. . EGD 5..25- Grade III esophageal varices, portal hypertensive gastropathy, no specimens collected 7.1.25- MELDna 6 OV 7.7.25- Pt reports no changes since last visit. Continues with Pantoprazole but still has occasional heartburn. States her swallowing is hit or miss. Denies nausea or vomiting. BMs normal. Sometimes about 2-3 times/day she feels right upper quadrant pressure, not pain but discomfort. Not related with a meal. [facility] Medical History Wears hearing aid Wears dentures Fatty liver History of ulceration History of Holter monitoring Back pain Wears glasses Thyroid disease Gout Arthritis Anemia High cholesterol History of GI bleed History of diverticulitis Gastric reflux Former smoker History of edema History of echocardiogram Hypertension Diabetes Migraines Home Medications Medication Instructions Recorded Last Taken Type rizatriptan 10 mg tablet 10 mg PO PRN PRN Migraine Headache 12/28/13 Unknown History Lactobacillus acidophilus 10 mg PO DAILY Check with primary 01/18/23 08/27/25 History (Acidophilus capsule) doctor allopurinol 100 mg tablet 100 mg PO DAILY Check with primary 01/18/23 08/27/25 History doctor cyclosporine 0.05 % eye drops in a 1 drp ophthalmic (eye) BID health 01/18/23 08/27/25 History dropperette (Restasis) maintenance erythromycin 5 mg/gram (0.5 %) eye 1 applic ophthalmic (eye) QHS 01/18/23 08/27/25 History ointment health maintenance ezetimibe 10 mg tablet 10 mg PO DAILY Check with primary 01/18/23 08/27/25 History doctor fluorometholone 0.1 % eye 1 drp ophthalmic (eye) BID health 01/18/23 08/27/25 History drops,suspension maintenance gabapentin 400 mg tablet 800 mg PO QHS health maintenance 01/18/23 08/27/25 History galcanezumab-gnlm 120 mg/mL 120 mg subcut QMONTH Check with 01/18/23 08/19/25 History subcutaneous pen injector primary doctor (Emgality Pen) metformin 1,000 mg tablet 1,000 mg PO BID diabetic 01/18/23 08/27/25 History multivitamin with minerals 2 tab PO DAILY Check with primary 01/18/23 08/27/25 History (Hair,Skin and Nails tablet) doctor otoxwsyakzew-Cv-ytqw-minerals 18 2 tab PO DAILY health maintenance 01/18/23 08/27/25 History mg-0.4 mg tablet vit C 250 mg-vit E 90 mg-zinc 40 1 tab PO BID Check with primary 01/18/23 08/27/25 History mg-copper 1 fn-peugvw-mffpus doctor capsule (PreserVision AREDS-2) magnesium 200 mg tablet 200 mg PO DAILY Check with primary 07/04/24 08/27/25 History doctor ascorbic acid (vitamin C) 500 mg 500 mg PO BID 1 month #60 tabs 12/29/24 08/27/25 Rx chewable tablet elderberry fruit 350 mg capsule 700 mg PO QDAY 12/29/24 08/27/25 History ferrous sulfate 325 mg (65 mg 325 mg PO QDAY 1 month #30 tabs 12/29/24 08/27/25 Rx iron) tablet levothyroxine 75 mcg tablet 75 mcg PO QDAY 1 month #30 tabs 12/29/24 08/28/25 Rx pantoprazole 40 mg tablet,delayed 40 mg PO BID 12/29/24 08/28/25 History release vit C 62.5 mg-vit D3 15 mcg-zinc 2 tab PO QDAY 12/29/24 08/27/25 History 2.75 mg-herbal no.358 chewable tablet (Immune Power) spironolactone 25 mg tablet 25 mg PO DAILY 1 month #30 tabs 03/15/25 08/27/25 Rx dulaglutide 3 mg/0.5 mL 3 mg subcut TH Check with primary 04/24/25 08/17/25 History subcutaneous pen injector doctor (Trulicjose a) rifaximin 550 mg tablet (Xifaxan) 550 mg PO BID 30 days #60 tabs 05/15/25 08/27/25 Rx carvedilol 6.25 mg tablet 6.25 mg PO BID 1 month #60 tabs 07/20/25 08/28/25 Rx lactulose 10 gram/15 mL oral 15 ml PO DAILY 08/24/25 08/27/25 History solution Allergy/AdvReac Type Severity Reaction Status Date / Time ciprofloxacin (From Cipro) Allergy Other Verified 08/28/25 07:29 ciprofloxacin HCl (From Allergy Other Verified 08/28/25 07:29 Cipro) metronidazole Allergy Other Verified 08/28/25 07:29 Penicillins (PCN) Allergy Other Verified 08/28/25 07:29 Sulfa (Sulfonamide Allergy Rash Verified 08/28/25 07:29 Antibiotics) Irjenpu-QWL-AbQ Reductase AdvReac Other Verified 08/28/25 07:29 Inhibitor Family History Grandfather Diabetes Grandmother Diabetes Father Heart problem Mother CVA (cerebral vascular accident) Surgical History History of esophagogastroduodenoscopy (EGD) Hx of esophagogastroduodenoscopy Hx of tonsillectomy History of Status post left foot surgery Social History Smoking Status: Never smoker alcohol intake: never substance use type: does not use ROS Constitutional Constitutional: Denies fatigue, fever(s), poor appetite, weight gain or weight loss Gastrointestinal Gastrointestinal: Denies belching, bloating, change in bowel habits, change in stool character, chewing difficulty, coffee ground emesis, constipation, cramping, diarrhea, dyspepsia, dysphagia, early satiety, excessive flatus, fecal incontinence, heartburn, hematemesis, hematochezia, hemorrhoids, loose stools, melena, nausea, odynophagia, rectal bleeding, tenesmus, vomiting or weight changes Vital Signs Vital Signs Vital Signs: 08/28/25 07:46 08/28/25 07:46 Temperature 96.8 F L Temperature Source Temporal Pulse Rate 78 Respiratory Rate 17 Respiratory Pattern Normal Blood Pressure 105/62 Blood Pressure Mean 76 Blood Pressure Source Monitor Blood Pressure Position Semi-Fowlers Blood Pressure Location Right Arm Pulse Ox 98 Oxygen Delivery Method Room Air Weight Weight: 147 lb 11.355 oz Body Mass Index (BMI) 29.8 Physical Exam Const alert, oriented x3, no apparent distress and healthy appearing General Appearance: cooperative GI normal to inspection, nondistended, normoactive bowel sounds, soft to palpation, non-tender and non-distended Percussion: normal to percussion Rectal Exam: deferred Assessment & Plan Assessment/Plan (1) Esophageal varices: QUALIFIERS: Esophageal varices type: secondary Esophageal varices bleeding: without bleeding Qualified Code(s): I85.10 - Secondary esophageal varices without bleeding (2) Gastroparesis: (3) Dysphagia: (4) RUQ abdominal tenderness: PLAN: Assessment and Plan Assessment and Plan (1) Cirrhosis: Status: Chronic Plan: 67-year-old with nonalcoholic steatohepatitis decompensated cirrhosis with MELD sodium score 6 on December 24, 2024 class CTP A, 5 points. She is on pantoprazole 40 mg daily. Patient completed sucralfate. Last EGD in February 2025 shows grade 3 esophageal varices, incompletely eradicated, banded. PHG. No gross lesions in entire examined duodenum. Earlier EGD was negative for H. pylori She takes lactulose 30 mill once daily. Labs reviewed from December 2024. Glucose is 282. A1c in November was also elevated 6.9%. Her baseline nausea is only 6.1 to 6.5%. On metformin. She is on Trulicity Anemia of chronic disease and iron versus anemia. Hemoglobin dropped and she is pale, H&H 8.0/29.6%. Last CT abdomen, triple phase, November 2023 and MRI abdomen/pelvis from January 2023 were reviewed. Cirrhotic changes but no specific mass reported. Borderline splenomegaly. Continue spironolactone 25 mg daily, carvedilol 6.25 mg twice daily. Continue ferrous sulfate 325 mg every day along with vitamin C. Continue lactulose and Xifaxan Hemoglobin is increased has slightly Follow-up in August after EGD and right upper quadrant sonogram. (2) Esophageal varices: Status: Chronic Qualifiers: Esophageal varices bleeding: without bleeding Esophageal varices type: secondary Qualified Code(s): I85.10 - Secondary esophageal varices without bleeding Plan: ]
--- NOTE | 2025-08-28 08:03 | PRE.ANES_ITS ---
ASA Classification* ASA Classification ASA Classification: 3 (Significant liver disease (stage 4 liver cirrhosis), GERD, hypothyroid, thrombocytopenia) Assessment & Plan Anesthesia* Anesthesia Assessment Anesthesia Assessment: Discussed sedation and/or anesthesia options, risks, benefits, and alternatives with patient/parents/legal guardian/POA. Questions invited. The patient/parents/legal guardian/POA seems to understand and agrees to proceed with anesthesia plan. Reviewed the physical assessment, medical history, allergy history and patient home medications list prior to surgery/procedure/anesthetic and documented any changes. Performed airway and anesthesia risk assessments. Anesthesia Type Anesthesia Type: MAC History Source History Obtained from:: Patient and Chart Anesthesia Focused Assessment* Temperature: 96.8 F Pulse Rate: 78 Blood Pressure: 105/62 Respiratory Rate: 17 Pulse Ox: 98 Oxygen Delivery Method: Room Air Airway Assessment Mouth opens: >3 cm Mallampati Score: II Teeth Condition: Intact Neck Range of motion (ROM): Full ROM Labs Anesthesia Preop lab: CBC WBC, (4.4-11.0) 4.1 K/mm3 L 07/30/25, 13:42 RBC, (4.2-5.4) 3.95 M/mm3 L 07/30/25, 13:42 Hgb, (12.0-15.0) 10.6 g/dL L 07/30/25, 13:42 Hct, (37-47) 34.9 % L 07/30/25, 13:42 Plt Count, (150-450) 73 K/mm3 L 07/30/25, 13:42 CHEMISTRY Potassium, (3.3-5.1) 4.4 mmol/L 07/30/25, 13:42 Sodium, (133-145) 138 mmol/L 07/30/25, 13:42 Magnesium, (1.6-2.6) 2.0 mg/dL 01/19/23, 05:35 BUN, (4-19) 11 mg/dL 07/30/25, 13:42 Creatinine, (0.70-1.20) 0.60 mg/dL L 07/30/25, 13:42 Glucose, (70-99) 136 mg/dL H 07/30/25, 13:42 POC Glucose, (74-106) 179 mg/dL H 02/27/25, 05:54 TSH, (0.358-3.74) 2.39 uIU/mL 04/19/20, 07:25 COAG PT, (11.7-14.9) 13.3 SECONDS 04/18/25, 08:04 Pre-Assessment Diagnosis/Proposed Procedure Planned Operative Procedure(s): EGD Anesthesia History 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 When Was Last Pacemaker Check QUESTION #4 FULL TEXT: You/Your Family Experience fever (hyperthermia) with Anesthesia Last Oral Intake Last Oral intake: Last Oral Intake NPO since 06:00 08/28/25 07:46 Meds taken in AM with sips of Yes 08/28/25 07:46 water? 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 Female Yes 08/24/25 13:06 HX of Motion Sickness Yes 08/24/25 13:06 HX of N/V After Surgery No 08/24/25 13:06 Non-Smoker Yes 08/24/25 13:06 Duration of Surgery greater No 08/24/25 13:06 than 60 minutes Number of Risk Factors 3 08/24/25 13:06 PONV Score Moderate Risk 08/24/25 13:06 Height & Weight Height & Weight: Anesthesia: Height & Weight Height 4 ft 11 in 08/28/25 07:46 Weight: 67 kg 08/28/25 07:46 Body Mass Index (BMI) 29.8 08/28/25 07:46 Respiratory Assessment Respiratory Assessment - major league baseball player: Respiratory Tract Infection Hx - 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 Has anyone observed you stop No 08/24/25 13:06 breathing during sleep? STOP Results Negative 08/24/25 13:06 QUESTION #5 FULL TEXT : Do you snore loudly (louder than talking or can be heard through closed doors)? 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 Specify any problems Hx of Preganancy in last 3 No 08/24/25 13:06 Months Nurse Filling Out Transfusion MGRIFFITH 08/24/25 13:06 & Questions: Date: 08/24/25 08/24/25 13:06 Time: 13:07 08/24/25 13:06 Patient unable to answer at this time (ie. 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: /Reproductive Hx- major league baseball player Hx Now No 08/24/25 13:06 Gestational Age (in weeks): EDC: Hx Hx Para Hx Section SAB No 08/24/25 13:06 Does the father of the baby or his family experience fever w Father of the baby Malignant Hypertension history comment Active Medications Active Medications: Current Medications Generic Name Dose Route Start Last Admin Trade Name Freq PRN Reason Stop Dose Admin Lactated Ringer's 1,000 mls @ 15 mls/hr 08/28/25 07:30 08/28/25 07:45 IV 15 mls/hr .Q48H WESLEY Administration PFSH Medical History Wears hearing aid Wears dentures Fatty liver History of ulceration History of Holter monitoring Back pain Wears glasses Thyroid disease Gout Arthritis Anemia High cholesterol History of GI bleed History of diverticulitis Gastric reflux Former smoker History of edema History of echocardiogram Hypertension Diabetes Migraines Home Medications Medication Instructions Recorded Last Taken Type rizatriptan 10 mg tablet 10 mg PO PRN PRN Migraine He adache 12/28/13 Unknown History Lactobacillus acidophilus 10 mg PO DAILY Check with pr imary 01/18/23 08/27/25 History (Acidophilus capsule) doctor allopurinol 100 mg tablet 100 mg PO DAILY Check with p rimary 01/18/23 08/27/25 History doctor cyclosporine 0.05 % eye drops in a 1 drp ophthalmic (e ye) BID health 01/18/23 08/27/25 History dropperette (Restasis) maintenance erythromycin 5 mg/gram (0.5 %) eye 1 applic ophthalmic (eye) QHS 01/18/23 08/27/25 History ointment health maintenance ezetimibe 10 mg tablet 10 mg PO DAILY Check with pr imary 01/18/23 08/27/25 History doctor fluorometholone 0.1 % eye 1 drp ophthalmic (eye) BID h ealth 01/18/23 08/27/25 History drops,suspension maintenance gabapentin 400 mg tablet 800 mg PO QHS health mainten ance 01/18/23 08/27/25 History galcanezumab-gnlm 120 mg/mL 120 mg subcut QMONTH Check with 01/18/23 08/19/25 History subcutaneous pen injector primary doctor (Emgality Pen) metformin 1,000 mg tablet 1,000 mg PO BID diabetic 12/1108/27/25 History multivitamin with minerals 2 tab PO DAILY Check with p rimary 01/18/23 08/27/25 History (Hair,Skin and Nails tablet) doctor gfrihmlvoach-Jx-mzlc-minerals 18 2 tab PO DAILY health maintenance 01/18/23 08/27/25 History mg-0.4 mg tablet vit C 250 mg-vit E 90 mg-zinc 40 1 tab PO BID Check wi th primary 01/18/23 08/27/25 History mg-copper 1 jz-fczzeb-dwjifp doctor capsule (PreserVision AREDS-2) magnesium 200 mg tablet 200 mg PO DAILY Check with p rimary 07/04/24 08/27/25 History doctor ascorbic acid (vitamin C) 500 mg 500 mg PO BID 1 month #60 tabs 12/29/24 08/27/25 Rx chewable tablet elderberry fruit 350 mg capsule 700 mg PO QDAY 5 08/27/25 History ferrous sulfate 325 mg (65 mg 325 mg PO QDAY 1 month # 30 tabs 12/29/24 08/27/25 Rx iron) tablet levothyroxine 75 mcg tablet 75 mcg PO QDAY 1 month #30 tabs 12/29/24 08/28/25 Rx pantoprazole 40 mg tablet,delayed 40 mg PO BID 5 08/28/25 History release vit C 62.5 mg-vit D3 15 mcg-zinc 2 tab PO QDAY 5 08/27/25 History 2.75 mg-herbal no.358 chewable tablet (Immune Power) spironolactone 25 mg tablet 25 mg PO DAILY 1 month #30 tabs 03/15/25 08/27/25 Rx dulaglutide 3 mg/0.5 mL 3 mg subcut TH Check with pr imary 04/24/25 08/17/25 History subcutaneous pen injector doctor (Trulicity) rifaximin 550 mg tablet (Xifaxan) 550 mg PO BID 30 day s #60 tabs 05/15/25 08/27/25 Rx carvedilol 6.25 mg tablet 6.25 mg PO BID 1 month #60 t abs 07/20/25 08/28/25 Rx lactulose 10 gram/15 mL oral 15 ml PO DAILY 08/24/25 1 10/27/24 History solution Allergy/AdvReac Type Severity Reaction Status Date / Time ciprofloxacin (From Cipro) Allergy Other Verified 08/28/25 07:29 ciprofloxacin HCl (From Allergy Other Verified 08/28/25 07:29 Cipro) metronidazole Allergy Other Verified 08/28/25 07:29 Penicillins (PCN) Allergy Other Verified 08/28/25 07:29 Sulfa (Sulfonamide Allergy Rash Verified 08/28/25 07:29 Antibiotics) Ztikreo-TYL-NnB Reductase AdvReac Other Verified 08/28/25 07:29 Inhibitor Family History Grandfather Diabetes Grandmother Diabetes Father Heart problem Mother CVA (cerebral vascular accident) Surgical History History of esophagogastroduodenoscopy (EGD) Hx of esophagogastroduodenoscopy Hx of tonsillectomy History of Status post left foot surgery Social History Smoking Status: Never smoker alcohol intake: never substance use type: does not use Review of Systems (Anesthesia) ROS Narrative System reviewed and no additional complaints, except as documented. Physical Exam Const alert, oriented x3 and average body habitus Resp normal respiratory effort, normal air movement and clear to auscultation bilaterally Cardio regular rate, regular rhythm and no murmurs
--- NOTE | 2025-08-28 08:30 | EGD_PTH ---
PATIENT: JAVON CAMPBELL LOC: EN U#:[id number] AGE/SX: 70/F ROOM: RE08/28/[address]: Dr. Toño Curtis DO : 1955 BED: DIS: 08/28/2025 SPEC #: [id number] RECD: 08/28/25 11:41 STATUS: SADAF REKeyur #: [id number] ABRAHAM: 08/28/25 08:[address]: Toño Curtis DEPT: SURGICAL PATHOLOGY RECD BY: Guillermo Felix ENTERED: 08/28/25 13:05 SP TYPE: EGD BIOPSY MICHAEL DR: Dr. Mingo Castellon MD Tissues: A - Gastric mucous membrane Procedures: Immunohistochemical Stains Surgery Specimen Level IV HEADER OPERATION: EGD with biopsy esophageal varices banding PRE-OP DIAGNOSIS: Esophageal varices, gastroparesis, dysphagia, right upper quadrant abdominal tenderness TISSUE SUBMITTED: A- Gastric body biopsy MICROSCOPIC DIAGNOSIS A. Gastric body, biopsy: - Oxyntic mucosa with features of reactive gastropathy. - IHC negative for H. pylori organisms. MICROSCOPIC DESCRIPTION Slides are reviewed. All matched controls reacted appropriately. These tests were developed and their performance characteristics determined by [facility]. They may not have been cleared or approved by the U.S. Food and Drug Administration. The FDA has determined that such clearance or approval is not necessary. The above immunohistochemical markers are viewed by the Pathologist. GROSS DESCRIPTION A. Received in fixative is one container labeled with the patient's name and designated "Gastric body biopsy." The specimen consists of two irregular fragments of allen tissue that measure 0.4 and 0.7 cm. The specimen is totally submitted in one cassette. AR 08/28/2025 CPT:[id number]
--- NOTE | 2025-08-28 09:18 | PCM.POST.ANE ---
Anesthesia: Postop Eval I Current Vital Signs Temperature: 97.1 F Pulse Rate: 89 Blood Pressure: 127/73 Respiratory Rate: 16 Pulse Ox: 97 Oxygen Delivery Method: Room Air Assessment Airway patent: Yes Spontaneous unlabored respirations: Yes Mental status: Awake nausea: No Vomiting: No Anesthesia Complication: No Fluid Hydration Crystalloid volume administer (ml): 400 Total IV fluid infused: 400 Progress Note Anesthesia document: Postop Eval 1 completed: Yes
--- NOTE | 2025-08-28 09:22 | OP.PROVAT_ITS ---
08/28/2025 Mingo Castellon Re : Upper GI endoscopy procedure for Krista Lopez Eyal Castellon This procedure was performed on Thursday, August 28, 2025. My impressions and recommendations are as follows: Impressions : - Grade II esophageal varices. Incompletely eradicated. Banded. - Portal hypertensive gastropathy. Biopsied. - No gross lesions in the entire examined duodenum. Recommendations : - Await pathology results. - Continue present medications. My findings are described in the full procedure note, which is enclosed. If I can be of further assistance, please feel free to contact me at . Sincerely, Toño Curtis, 08/28/2025 9:22:27 AM This report has been signed electronically.
--- NOTE | 2025-08-28 09:22 | OP.EGD_ITS ---
Patient Name: Krista Lopez Procedure Date: 08/28/2025 8:54 AM Date of : 1955 Age: 70 Procedure: Upper GI endoscopy Indications: Epigastric abdominal pain, For therapy of esophageal varices Providers: Toño Curtis DO Referring MD: Mingo Castellon Medicines: Monitored Anesthesia Care Patient Profile: This is a 70 year old female. Refer to note in patient chart for documentation of history and physical. Patient has symptoms. Her most recent EGD for treatment of bleeding. Complications: No immediate complications. Procedure: Pre-Anesthesia Assessment: - Prior to the procedure, a History and Physical was performed, and patient medications and allergies were reviewed. The patient is competent. The risks and benefits of the procedure and the sedation options and risks were discussed with the patient. All questions were answered and informed consent was obtained. Patient identification and proposed procedure were verified by the physician in the pre-procedure area. Mental Status Examination: alert and oriented. Airway Examination: normal oropharyngeal airway and neck mobility. Respiratory Examination: clear to auscultation. CV Examination: normal. Prophylactic Antibiotics: The patient does not require prophylactic antibiotics. Prior Anticoagulants: The patient has taken no anticoagulant or antiplatelet agents except for NSAID medication. ASA Grade Assessment: II - A patient with mild systemic disease. After reviewing the risks and benefits, the patient was deemed in satisfactory condition to undergo the procedure. The anesthesia plan was to use monitored anesthesia care (MAC). Immediately prior to administration of medications, the patient was re-assessed for adequacy to receive sedatives. The heart rate, respiratory rate, oxygen saturations, blood pressure, adequacy of pulmonary ventilation, and response to care were monitored throughout the procedure. The physical status of the patient was re-assessed after the procedure. After obtaining informed consent, the endoscope was passed under direct vision. Throughout the procedure, the patient's blood pressure, pulse, and oxygen saturations were monitored continuously. The Endoscope was introduced through the mouth, and advanced to the third part of the duodenum. Small bowel enteroscopy was deemed necessary. The upper GI endoscopy was accomplished without difficulty. The patient tolerated the procedure well. Scope In: 8:59:52 AM Scope Out: 9:09:35 AM Total Procedure Duration Time 0 hours 9 minutes 43 seconds Findings: Grade II varices were found in the lower third of the esophagus. They were 5 mm in largest diameter. Two bands were successfully placed with incomplete eradication of varices. There was no bleeding at the end of the procedure. Moderate portal hypertensive gastropathy was found in the gastric body. Biopsies were taken with a cold forceps for histology. Biopsies were taken with a cold forceps for Helicobacter pylori testing. Verification of patient identification for the specimen was done. No gross lesions were noted in the entire examined duodenum. Impression: - Grade II esophageal varices. Incompletely eradicated. Banded. - Portal hypertensive gastropathy. Biopsied. - No gross lesions in the entire examined duodenum. Recommendation: - Await pathology results. - Continue present medications. Procedure Code(s): --- Professional --- 47035, Small intestinal endoscopy, enteroscopy beyond second portion of duodenum, not including ileum; with biopsy, single or multiple CPT copyright 2021 [employer]. All rights reserved. The codes documented in this report are preliminary and upon cnc cutting operator review may be revised to meet current compliance requirements. Toño Curtis DO 08/28/2025 9:22:27 AM This report has been signed electronically. Number of Addenda: 0 Note Initiated On: 08/28/2025 8:54 AM
--- NOTE | 2025-08-28 13:46 | PCM.POSTANE2 ---
Anesthesia Postop Eval I Sum Postop Eval Completion status Anesthesia document: Postop Eval 1 completed: Yes Anesthesia Postop Eval I Summary Anesthesia Postop Eval I Summary: Anesthesia Postop Eval I: Assessment Summary Airway patent Yes 08/28/25 09:19 [email or web address] Spontaneous unlabored Yes 08/28/25 09:19 [email or web address] respirations Mental status Awake 08/28/25 09:19 [email or web address] nausea No 08/28/25 09:19 [email or web address] Vomiting No 08/28/25 09:19 [email or web address] Anesthesia Postop Eval I: Fluid Summary Crystalloid volume administer 400 08/28/25 09:19 [email or web address] (ml) Colloids volume administered ( ml) Blood Product volume administered (ml) Total IV fluid infused 400 08/28/25 09:19 [email or web address] Anesthesia Postop Eval I: Summary Notes Anesthesia Complication No 08/28/25 09:19 [email or web address] Anesthesia Complication Comment: Post-operative progress note Anesthesia: Postop Eval II Evaluation Mental status: Awake Pain Level: 0 nausea: No Vomiting: No Complications Anesthesia Complication: No
== END 2025-08-28 09:58 | disposition home or self-care (01) ==
LOC: EN 07:24 → AC 07:25
PROVIDERS: PCP Family Medicine; Referring Provider Family Medicine; Visit Provider Internal Medicine Gastroenterology
DX: I85.10 Secondary esophageal varices without bleeding (principal); K76.6 Portal hypertension; K74.60 Unspecified cirrhosis of liver; E11.43 Type 2 diabetes mellitus with diabetic autonomic (poly)neuropathy; Z79.899 Other long term (current) drug therapy; Z79.85 Long-term (current) use of injectable non-insulin antidiabetic drugs; K21.9 Gastro-esophageal reflux disease without esophagitis; K31.84 Gastroparesis; Z79.84 Long term (current) use of oral hypoglycemic drugs; E78.00 Pure hypercholesterolemia, unspecified; Z79.890 Hormone replacement therapy; E03.9 Hypothyroidism, unspecified
CPT/HCPCS: 43244; 82962; 88305; 88342; J2405

== ENCOUNTER → 2025-09-28 | Outpatient (CLI) | payer MEDICARE, BC, SELFPAY ==
[2025-09-28 11:27] LABS: Hematocrit 32.8 % (37-47); Hemoglobin 9.7 g/dL (12.0-15.0); Immature Granulocytes Count 0.010 X10^3/uL (0.0-0.0); Mean Corp Hgb Conc 29.6 g/dL (32-36); Mean Corpuscular Volume 85.2 fL (81-99); Mean Platelet Vol. 11.4 fl (6.2-12.0); NRBC Flagged by Analyzer 0 % (0-5); POSITIVE COUNT YES; Platelet Count 80 K/mm3 (150-450); RBC Distribution Width CV 17.3 % (11.6-14.6); RBC Distribution Width SD 53.1 fl (35.1-43.9); Red Blood Count 3.85 M/mm3 (4.2-5.4); White Blood Count 4.4 K/mm3 (4.4-11.0)
[2025-09-28 12:11] LABS: AST(SGOT) 28 U/L (<=31); Alanine Aminotransfer ALT/SGPT 22 U/L (<=34); Albumin, Serum 4.4 g/dL (3.4-4.8); Alkaline Phosphatase 88 U/L (35-104); Anion Gap 15 (5-15); BUN 10 mg/dL (4-19); BUN/Creat Ratio 15.2 RATIO (10-20); Calcium,Total 9.3 mg/dL (7.6-11.0); Carbon Dioxide 23.5 mmol/L (21.0-32.0); Chloride 104 mmol/L (98-108); Globulin 2.9 g/dL (2.2-4.2); Glucose 138 mg/dL (70-99); Potassium 4.2 mmol/L (3.3-5.1)
[2025-09-28 12:50] LABS: Prothrombin Time (Protime)PT. 13.9 SECONDS (11.7-14.9)
[2025-09-28 12:51] LABS: Partial Thromboplast Time 30.2 Seconds (24.1-36.2)
== END | disposition home or self-care (01) ==
LOC: LAB 10:10
PROVIDERS: Internal Medicine Gastroenterology; PCP Family Medicine; Referring Provider Internal Medicine; Visit Provider Internal Medicine
DX: K74.60 Unspecified cirrhosis of liver (principal)
CPT/HCPCS: 36415; 80053; 85025; 85610; 85730